=== PATIENT | female | born 1960 ===

== ENCOUNTER 2020-04-16 08:06 | Emergency (ER) | payer MEDICAID, OTHER ==
[~2020-04-16] VITALS: Ht 172 cm; Wt 57.0 kg
[2020-04-16 08:42] LABS: BASOPHILS % (AUTO) 0 % (0-10); EOSINOPHILS % (AUTO) 2 % (0-10); HEMATOCRIT 37 % (35-52); HEMOGLOBIN 12.1 G/DL (11.5-16.0); LYMPHOCYTES # (AUTO) 2.2 X 10^3 (1.0-4.0); LYMPHOCYTES % (AUTO) 18 % (12-44); MEAN CORPUSCULAR HEMOGLOBIN 30 PG (25-34); MEAN CORPUSCULAR HGB CONC 33 G/DL (32-36); MEAN CORPUSCULAR VOLUME 90 FL (80-99); MEAN PLATELET VOLUME 9.3 FL (7.4-10.4); MONOCYTES # (AUTO) 0.7 X 10^3 (0.0-1.0); MONOCYTES % (AUTO) 6 % (0-12); NEUTROPHILS # (AUTO) 8.9 X 10^3 (1.8-7.8); NEUTROPHILS % (AUTO) 74 % (42-75); PLATELET COUNT 551 10^3/uL (130-400); RED CELL DISTRIBUTION WIDTH 14.4 % (10.0-14.5)
[2020-04-16 08:43] LABS: EOSINOPHILS # (AUTO) 0.3 10^3/uL (0.0-0.3)
[2020-04-16] MEDS ORDERED: ONDANSETRON 4 MG/2 ML (SDV) Z0FRAN IVP ONE (08:45)
[2020-04-16] MEDS ORDERED: LIDOCAINE 2% VISCOUS 15 ML UDC PO ONE (08:45)
[2020-04-16] MEDS ORDERED: ANTACID SUSP 30 ML UDC (MYLANTA) PO ONE (08:45)
[2020-04-16] MEDS ORDERED: FAMOTIDINE 20MG/2ML IV (PEPCID) IVP ONE (08:45)
[2020-04-16 08:47] LABS: ALBUMIN 3.8 GM/DL (3.2-4.5)
[2020-04-16 08:48] LABS: CHLORIDE 95 MMOL/L (98-107); POTASSIUM 4.1 MMOL/L (3.6-5.0); SODIUM 131 MMOL/L (135-145)
[2020-04-16 08:49] LABS: CALCIUM 9.5 MG/DL (8.5-10.1)
[2020-04-16 08:50] LABS: GLUCOSE 102 MG/DL (70-105); TOTAL PROTEIN 7.2 GM/DL (6.4-8.2)
[2020-04-16 08:51] LABS: CARBON DIOXIDE 25 MMOL/L (21-32)
[2020-04-16 08:52] LABS: BILIRUBIN,TOTAL 0.3 MG/DL (0.1-1.0)
[2020-04-16 08:54] LABS: ALKALINE PHOSPHATASE 89 U/L (40-136); CREATININE SERUM 0.87 MG/DL (0.60-1.30); GFR ESTIMATED > 60
[2020-04-16 08:55] LABS: BUN/CREATININE RATIO 8
[2020-04-16 08:56] LABS: INR 0.8 (0.8-1.4)
--- NOTE | 2020-04-16 08:56 | ED Abdominal Pain ---
General Chief Complaint: Abdominal/GI Problems Stated Complaint: ABD PAIN Nursing Triage Note: PT AMBLATES TO ROOM 6 PT CO OF UPPER ABD PAIN, PT STATES HAS HAD PAIN 10/10 FOR 3 DAYS, STATES HAS N/V Sepsis Screen: No Definite Risk Source of Information: Patient Exam Limitations: No Limitations History of Present Illness Date Seen by Provider: Apr 16, 2020 Time Seen by Provider: 08:27 Initial Comments This 59-year-old woman presents to the emergency room with complaints of upper abdominal pain for about the past 3 days with associated nausea and vomiting. She reported her pain as 10 over 10. She denies any constipation, diarrhea, or fever. She has history of gastritis. Is about 2 months sober from alcohol dependence. She is currently living in a women's transitional house. Pain does not seem to be alleviated or exacerbated by eating. Allergies and Home Medications Allergies Coded Allergies: No Known Drug Allergies (Unverified , 04/16/20) Home Medications Omeprazole 20 Mg Capsule.dr, 20 MG PO BID Prescribed by: FLOR CALDERON on 04/16/20921 Sucralfate 1 Gm Tablet, 1 GM PO QID Crush or dissolve and mix with 5-10 ML water to make a slurry. Take 30 minutes before meals and bedtime Prescribed by: FLOR CALDERON on 04/16/20921 Patient Home Medication List Home Medication List Reviewed: Yes Review of Systems Review of Systems Constitutional: no symptoms reported EENTM: No Symptoms Reported Respiratory: No Symptoms Reported Cardiovascular: No Symptoms Reported Gastrointestinal: See HPI Genitourinary: No Symptoms Reported Musculoskeletal: no symptoms reported Skin: no symptoms reported Psychiatric/Neurological: See HPI Endocrine: No Symptoms Reported Hematologic/Lymphatic: No Symptoms Reported Past Pwedwan-Jqlreb-Ojoiaq Hx Past Med/Social Hx: Reviewed Nursing Past Med/Soc Hx Patient Social History Alcohol Use: Regular Use Number of Drinks Today: 0 Alcohol Beverage of Choice: Vodka Recreational Drug Use: No Smoking Status: Current Everyday Smoker Type Used: Cigarettes Recent Foreign Travel: No Contact w/Someone Who Travel: No Recent Infectious Disease Expo: No Physical Abuse: No Sexual Abuse: No Physical Exam Vital Signs Vital Signs - First Documented 04/16/20 08:10 Temp 36.6 Pulse 92 Resp 18 B/P (MAP) 148/96 (113) Pulse Ox 96 Capillary Refill : Less Than 3 Seconds Height/Weight/BMI Height: '" Weight: lbs. oz. 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, no motor/sensory deficits, alert, normal mood/affect, oriented x 3 Skin: normal color, warm/dry Progress/Results/Core Measures Results/Orders Lab Results Laboratory Tests Test 04/16/20 08:15 Range/Units White Blood Count 12.0 H 4.3-11.0 10^3/uL Red Blood Count 4.08 L 4.35-5.85 10^6/uL Hemoglobin 12.1 11.5-16.0 G/DL Hematocrit 37 35-52 % Mean Corpuscular Volume 90 80-99 FL Mean Corpuscular Hemoglobin 30 25-34 PG Mean Corpuscular Hemoglobin Concent 33 32-36 G/DL Red Cell Distribution Width 14.4 10.0-14.5 % Platelet Count 551 H 130-400 10^3/uL Mean Platelet Volume 9.3 7.4-10.4 FL Neutrophils (%) (Auto) 74 42-75 % Lymphocytes (%) (Auto) 18 12-44 % Monocytes (%) (Auto) 6 0-12 % Eosinophils (%) (Auto) 2 0-10 % Basophils (%) (Auto) 0 0-10 % Neutrophils # (Auto) 8.9 H 1.8-7.8 X 10^3 Lymphocytes # (Auto) 2.2 1.0-4.0 X 10^3 Monocytes # (Auto) 0.7 0.0-1.0 X 10^3 Eosinophils # (Auto) 0.3 0.0-0.3 10^3/uL Basophils # (Auto) 0.0 0.0-0.1 10^3/uL Prothrombin Time 12.0 L 12.2-14.7 SEC INR Comment 0.8 0.8-1.4 Sodium Level 131 L 135-145 MMOL/L Potassium Level 4.1 3.6-5.0 MMOL/L Chloride Level 95 L 98-107 MMOL/L Carbon Dioxide Level 25 21-32 MMOL/L Anion Gap 11 5-14 MMOL/L Blood Urea Nitrogen 7 7-18 MG/DL Creatinine 0.87 0.60-1.30 MG/DL Estimat Glomerular Filtration Rate > 60 BUN/Creatinine Ratio 8 Glucose Level 102 70-105 MG/DL Calcium Level 9.5 8.5-10.1 MG/DL Corrected Calcium 9.7 8.5-10.1 MG/DL Total Bilirubin 0.3 0.1-1.0 MG/DL Aspartate Amino Transf (AST/SGOT) 15 5-34 U/L Alanine Aminotransferase (ALT/SGPT) 7 0-55 U/L Alkaline Phosphatase 89 40-136 U/L Total Protein 7.2 6.4-8.2 GM/DL Albumin 3.8 3.2-4.5 GM/DL Lipase 50 8-78 U/L Serum Alcohol < 10 <10 MG/DL My Orders Orders - FLOR TRUJILLO MD Famotidine Injection (Pepcid Injection) (04/16/20 08:45) Lidocaine 2% Viscous 15 Ml (Xylocaine Vi (04/16/20 08:45) Antacid Suspension (Mylanta Suspension (04/16/20 08:45) Ondansetron Injection (Zofran Injectio (04/16/20 08:45) Alcohol (04/16/20 08:35) Cbc With Automated Diff (04/16/20 08:35) Comprehensive Metabolic Panel (04/16/20 08:35) Lipase (04/16/20 08:35) Protime With Inr (04/16/20 08:35) Ua Culture If Indicated (04/16/20 08:35) Medications Given in ED Current Medications Medications Dose Ordered Sig/Catherine Route Start Time Stop Time Status Last Admin Dose Admin Al Hydrox/Mg Hydrox/Simethicone 30 ml ONCE ONCE PO 04/16/20 08:45 04/16/20 08:46 DC 04/16/20 08:44 30 ML Famotidine 20 mg ONCE ONCE IVP 04/16/20 08:45 04/16/20 08:46 DC 04/16/20 08:44 20 MG Lidocaine HCl 15 ml ONCE ONCE PO 04/16/20 08:45 04/16/20 08:46 DC 04/16/20 08:44 15 ML Ondansetron HCl 8 mg ONCE ONCE IVP 04/16/20 08:45 04/16/20 08:46 DC 04/16/20 08:44 8 MG Vital Signs/I&O 04/16/20 04/16/20 08:10 09:30 Temp 36.6 Pulse 92 84 Resp 18 18 B/P (MAP) 148/96 (113) 132/84 (113) Pulse Ox 96 96 Blood Pressure Mean: 113 Progress Progress Note #1: Progress Note Patient was seen and examined. She had coffee with creamer about an hour prior to arrival. Ultrasound and therefore would not be ideally timed right now. We will try treating with Zofran, Pepcid, and GI cocktail while we are awaiting labs. Progress Note #2: Progress Note Patient did note a significant improvement with treatment. She was advised to start on a regimen of PPI and Carafate. She has a follow-up appointment at [facility] tomorrow and was encouraged to keep that appointment. Departure Impression Primary Impression: Epigastric pain Disposition: 01 HOME, SELF-CARE Condition: Improved Departure-Patient Inst. Decision time for Depature: 09:17 Referrals: NO,LOCAL PHYSICIAN (PCP) Primary Care Physician Patient Instructions: Gastritis (DC), Severe Abdominal Pain Add. Discharge Instructions: Your pain will likely rebound after the GI cocktail wears off. With proper tr eatment and dietary changes your pain should gradually improve over the next 1-2 weeks. Take omeprazole twice a daily for at least a couple of months. Use Carafate 30 minutes before eating and drinking at mealtimes and again before bed. Dissolve the tablet in 5-10 ML of water. You may crush first if you desire. This will make a slurry that you then drink. Avoid the following: Eating close to bedtime, eating large meals, caffeine, carbonation, citrus fruits and juices, chocolate, spicy foods, tomato products, mints, alcohol, tobacco, NSAID medications such as ibuprofen or naproxen, fatty or greasy foods, or anything else you know irritates your stomach. Keep your appointment with your primary care doctor. All discharge instructions reviewed with patient and/or family. Voiced understanding. Scripts Sucralfate (Carafate) 1 Gm Tablet 1 GM PO QID, #120 TAB Crush or dissolve and mix with 5-10 ML water to make a slurry. Take 30 minutes before meals and bedtime Prov: FLOR TRUJILLO MD 04/16/20 Omeprazole (Omeprazole) 20 Mg Capsule.dr 20 MG PO BID, #60 CAP 2 Refills Prov: FLOR TRUJILLO MD 04/16/20 Copy Copies To 1: MINISTERIO VIDES JOSHUA T MD Apr 16, 2020 08:56
[2020-04-16 08:57] LABS: ALANINE AMINOTRANSFERASE 7 U/L (0-55); LIPASE 50 U/L (8-78)
[2020-04-16] MEDS ORDERED: OMEP20CA18 PO (09:22)
[2020-04-16] MEDS ORDERED: SUCR1TAB36 PO (09:22)
[2020-04-16 09:30] VITALS: BP 132/84
--- OUTSIDE RECORDS SUMMARY | 2020-04-16 10:21 | XMS REPORT | Referral Summary ---
Author Author [facility] Organization [facility] Address Unknown Phone Unavailable Care Team Providers Care Print Designer Name Role Phone [facility] PCP Unavailable Encounter VC WILLIAM [id number] Date(s): 02/10/20 - 02/19/20 [facility] [address] [place] [address] Discharge Disposition: 01-Home or Self Care Attending Physician: Mark Kennedy MD Admitting Physician: Juan Reagan MD Vital Signs Most recent to 1 oldest [Reference Range]: Temperature Oral 37.4 degC [35.8-37.3 degC] *HI* (02/19/20 12:00 PM) Temperature Temporal 36.9 degC Artery [36.3-37.8 (02/13/20 12:00 PM) degC] Peripheral Pulse 93 bpm Rate [60-100 bpm] (02/19/20 12:00 PM) Heart Rate Monitored 85 bpm [60-100 bpm] (02/18/20 8:00 AM) Respiratory Rate 18 br/min [14-20 br/min] (02/19/20 12:00 PM) Blood Pressure 121/88 mmHg [90-140/60-90 mmHg] (02/19/20 12:00 PM) Mean Arterial 74 mmHg Pressure, Cuff (02/14/20 8:02 PM) SpO2 96 % (02/19/20 12:00 PM) Remote Telemetry Ongoing (02/14/20 7:57 AM) Problem List Condition Effective Dates Status Health Status Informan t Acute Active pain(Confirmed) Alteration in Active nutrition(Confirmed) 1 At risk for Active injury(Confirmed)2 At risk of pressure Active sore(Confirmed) Cirrhosis of Active liver(Confirmed) Hypertension(Confirm Active ed) Impaired gas Active exchange(Confirmed)3 Impaired skin Active integrity(Confirmed) 4 Scoliosis(Confirmed) Active patient 1Problem added automatically by system based on initiation of Alteration in Nutrition Plan of Care 2Problem added automatically by system based on initiation of Risk for Injury Plan of Care 3Problem added automatically by system based on initiation of Impaired Gas Exchange Plan of Care 4Problem added automatically by system based on initiation of Impaired Skin Integrity Plan of Care Allergies, Adverse Reactions, Alerts No Known Allergies Medications vancomycin 125 mg oral capsule 125 mg 1 caps, Oral, QID, # 32 caps, 0 Refill(s), Pharmacy: [facility], 1 caps Oral QID Start Date: 02/19/20 Status: Ordered Results Most recent to 1 oldest [Reference Range]: Lactic Acid-POC 5.0 mEq/L [0.5-2.0 mEq/L] *HHI* (02/10/20 8:16 PM) WBC [4.8-10.8 5.8 10*3/uL 10*3/uL] (02/19/20 6:42 AM) RBC [4.00-5.20] 2.92 *LOW* (02/19/20 6:42 AM) INR [0.9-1.2] 1.6 *HI* (02/13/20 11:00 AM) BUN [4-20 mg/dL] 2 mg/dL *LOW* (02/19/20 6:42 AM) Acetaminophen Lvl <10 ug/mL [10-30 ug/mL] (02/10/20 8:10 PM) U Amphetamine Scrn Not Detected [Not Detected] (02/11/20 12:45 AM) UA Color Yellow (02/14/20 1:36 PM) UA WBC [0-4] 0-2 (02/14/20 1:36 PM) Type Clean Catch (02/14/20 1:36 PM) Troponin [<0.06 <0.05 ng/mL ng/mL] (02/10/20 11:02 PM) Glucose Lvl [70-100 85 mg/dL mg/dL] (02/19/20 6:42 AM) Potassium Lvl 3.7 mEq/L [3.6-5.1 mEq/L] (02/19/20 6:42 AM) Baso Absolute 0.02 [0.00-0.20] (02/11/20 3:13 AM) U Benzodiazepine Not Detected Scrn [Not Detected] (02/11/20 12:45 AM) MCV [82.0-99.0 fL] 97.6 fL (02/19/20 6:42 AM) UA Urobilinogen Negative [<1.0] (02/14/20 1:36 PM) UA Bili [Negative] Negative (02/14/20 1:36 PM) UA Ketones Negative [Negative] (02/14/20 1:36 PM) AST [15-41 U/L] 37 U/L (02/11/20 3:13 AM) ALT [14-54 U/L] 20 U/L (02/11/20 3:13 AM) MCHC [32.0-36.0 32.3 gm/dL gm/dL] (02/19/20 6:42 AM) Sodium Lvl [136-144 138 mEq/L mEq/L] (02/19/20 6:42 AM) UA RBC [0-2] 2-5 (02/14/20 1:36 PM) Folate Lvl [7.0-31.4 12.2 ng/mL ng/mL] (02/14/20 5:27 AM) UA Leuk Est Pos 2+ [Negative] *ABN* (02/14/20 1:36 PM) U PCP Scrn [Not Not Detected Detected] (02/11/20 12:45 AM) Lymph Absolute 0.41 [0.80-3.30] *LOW* (02/11/20 3:13 AM) UA Nitrite Negative [Negative] (02/14/20 1:36 PM) UA Glucose Negative [Negative] (02/14/20 1:36 PM) Hct [37.0-47.0 %] 28.5 % *LOW* (02/19/20 6:42 AM) UA Bacteria [None Rare Seen-Rare] (02/14/20 1:36 PM) Lipase Lvl [8-48 22 U/L U/L] (02/10/20 8:10 PM) U Cocaine Scrn [Not Not Detected Detected] (02/11/20 12:45 AM) Calcium Lvl 7.5 mg/dL [8.6-10.0 mg/dL] *LOW* (02/19/20 6:42 AM) [place] Absolute 0.00 [0.30-1.00] *LOW* (02/11/20 3:13 AM) Phosphorus [2.4-4.7 4.2 mg/dL 1 mg/dL] (02/19/20 6:42 AM) Albumin Lvl [3.5-4.8 1.6 gm/dL gm/dL] *LOW* (02/19/20 6:42 AM) Total Protein 4.6 gm/dL [6.1-7.9 gm/dL] *LOW* (02/11/20 3:13 AM) UA Protein Negative [Negative] (02/14/20 1:36 PM) Iron Sat [11-46 %] 9 % *LOW* (02/14/20 5:27 AM) MCH [27.0-32.0 pg] 31.5 pg (02/19/20 6:42 AM) Magnesium Lvl 1.8 mg/dL [1.8-2.5 mg/dL] (02/16/20 4:51 AM) Neutro Absolute 13.39 [1.90-7.00] *HI* (02/11/20 3:13 AM) U Cannab Scrn [Not Not Detected Detected] (02/11/20 12:45 AM) Bili Total [0.2-1.2 0.8 mg/dL 2 mg/dL] (02/11/20 3:13 AM) Hgb [12.0-16.0 9.2 gm/dL gm/dL] *LOW* (02/19/20 6:42 AM) Transferrin [192-382 80 mg/dL mg/dL] *LOW* (02/14/20 5:27 AM) Vitamin B12 Lvl 1002 pg/mL [213-816 pg/mL] *HI* (02/14/20 5:27 AM) Alk Phos [26-104 179 U/L U/L] *HI* (02/11/20 3:13 AM) UA Blood [Negative] Pos 1+ *ABN* (02/14/20 1:36 PM) MPV [9.4-12.4 fL] 9.1 fL *LOW* (02/19/20 6:42 AM) Salicylate Lvl [0-30 <4 mg/dL 3 mg/dL] (02/10/20 8:10 PM) Ethanol Lvl [None 323 mg/dL Detected mg/dL] (02/10/20 8:10 PM) UA Spec Grav 1.005 [1.003-1.030] (02/14/20 1:36 PM) Ferritin Lvl [11-307 248 ng/mL ng/mL] (02/14/20 5:27 AM) Polychrom [Not Seen] Occasional *ABN* (02/11/20 3:13 AM) Platelet [150-400 626 10*3/uL 10*3/uL] *HI* (02/19/20 6:42 AM) Chloride [99-109 102 mEq/L mEq/L] (02/19/20 6:42 AM) CO2 [22-32 mEq/L] 25 mEq/L (02/19/20 6:42 AM) AGAP [3-20 mEq/L] 11 mEq/L (02/19/20 6:42 AM) Eos Absolute 0.04 [0.00-0.50] (02/11/20 3:13 AM) TIBC [286-569 119 mcg/dL mcg/dL] *LOW* (02/14/20 5:27 AM) U Barbiturate Scrn Not Detected [Not Detected] (02/11/20 12:45 AM) Lactic Acid Lvl 4.4 mEq/L 4 [0.5-2.0 mEq/L] *HHI* (02/11/20 4:00 PM) Iron [50-170 mcg/dL] 11 mcg/dL *LOW* (02/14/20 5:27 AM) RDW [11.5-14.5 %] 24.9 % *HI* (02/19/20 6:42 AM) UA pH [5.0-8.0] 7.0 (02/14/20 1:36 PM) U Opiate Scrn [Not Not Detected Detected] (02/11/20 12:45 AM) UA Appear Sl Cloudy (02/14/20 1:36 PM) Immature 0.1 % Granulocytes (02/10/20 8:10 PM) [0.0-1.0 %] Nucleated RBC 0.6 /100 WBC Automated [0 /100 (02/11/20 3:13 AM) WBC] Differential Reviewed (02/11/20 3:13 AM) eGFR [>60 mL/min] >60 mL/min 5 (02/19/20 6:42 AM) Globulin [1.9-4.3 2.9 gm/dL gm/dL] (02/11/20 3:13 AM) Epithelial Cells 2-5 [0-5] (02/14/20 1:36 PM) Tricyclics [Not Not Detected 6 Detected] (02/11/20 12:45 AM) TSH with Reflex Free 4.52 mcIU/mL T4 [0.35-5.50 (02/15/20 5:00 AM) mcIU/mL] Creatinine Lvl 0.78 mg/dL [0.44-1.03 mg/dL] (02/19/20 6:42 AM) Neutrophils [51-75 97 % %] *HI* (02/11/20 3:13 AM) Lymphocytes [20-46 3 % %] *LOW* (02/11/20 3:13 AM) Eosinophils [0-4 %] 0 % (02/11/20 3:13 AM) Basophils [0-2 %] 0 % (02/11/20 3:13 AM) Methadone Lvl [Not Not Detected Detected] (02/11/20 12:45 AM) Monocytes [4-11 %] 4 % (02/11/20 3:13 AM) Blood Glucose, 99 mg/dL Capillary [70-100 (02/13/20 8:56 PM) mg/dL] 1Result Comment: High dosages of liposomal Amphotericin B (AmBisome) therapy or other drug preparations that use a liposomal envelope to facilitate drug delivery may cause falsely elevated results for phosphorus. 2Result Comment: Naproxen, specifically the metabolite O-desmethylnaproxen, may cause spurious elevation in Total Bilirubin levels. B-oqhalk-x-benzoquinone imine (NAPQ1), a metabolite of acetaminophen, may cause negative interference in Total and/or Direct Bilirubin if present in high serum quantities due to acetaminophen overdose. 3Result Comment: Sulfasalazine may cause false high salicylate levels and Sulfapyridine may cause false low salicylate levels. 4Result Comment: Critical value called, and read-back verified. Called to Marco Key ([facility]) 02/11/2020 16:46 Venipuncture immediately after or during the administration of Metamizole (Dipyrone) may lead to falsely low results. Venipuncture should be performed prior to the administration of Metamizole. 5Result Comment: Multiply eGFR results by 1.21 for race. 6Result Comment: Cut-off concentrations: Amphetamines: 1000 ng/mL Cocaine: 300 ng/mL Cannabinoid: 50 ng/mL Opiate: 300 ng/mL Phencyclidine (PCP): 25 ng/mL Benzodiazepine: 200 ng/mL Barbiturate: 200 ng/mL Methadone: 300 ng/mL Tricyclic: 300 ng/mL The urine drug screen assays are qualitative screens. A more specific GC/MS method must be performed to obtain a confirmed analytical result. Unconfirmed screening results must not be used for non-medical purposes(e.g. employment or legal testing) Microbiology Reports TEST: Blood Culture1 STATUS: Auth (Verified) BODY SITE: SOURCE: Blood COLLECTED DATE/TIME: 02/10/20 9:09 PM Blood Culture No growth after 5 days of incubation. TEST: Blood Culture2 STATUS: Auth (Verified) BODY SITE: SOURCE: Blood COLLECTED DATE/TIME: 02/10/20 9:09 PM Blood Culture No growth after 5 days of incubation. INTERPRETIVE DATA 1Volume not known;Pediatric bottle ONLY received 2Volume of blood not known Immunizations No data available for this section Procedures Procedure Date Related Diagnosis Body Site Status Insertion of peripherally inserted central 02/11/20 Completed venous catheter (PICC), without subcuta neous port or pump, without imaging guidance; age 5 years or older Esophagogastroduodenoscopy - SN1 03/15/19 Compl eted Esophagogastroduodenoscopy - SN2 03/07/19 Compl eted 1auto-populated from documented surgical case 2auto-populated from documented surgical case Social History Social History Type Response Smoking Status 10 or more cigarettes (1/2 pack or more)/day in last 30 days; Type: Cigarettes; Tobacco use per day: 1/2 pa ck or more entered on: 10/04/19 Assessment and Plan No data available for this section
--- OUTSIDE RECORDS SUMMARY | 2020-04-16 10:21 | XMS REPORT | Referral Summary ---
Author Author [place] [facility] [employer] [facility] Organization [place] [facility] Address Unknown Phone Unavailable Care Team Providers Care Site Leasing Agent Name Role Phone [facility] PCP Unavailable Encounter VC Date(s): 02/23/20 - 02/29/20 [place] [facility] [employer] [place] [address], [place] [address] Encounter Diagnosis Hypertension (Discharge Diagnosis) - 02/28/20 Discharge Disposition: 01-Home or Self Care Attending Physician: Tcio Ponce MD Admitting Physician: Ayesha Alvarado MD Vital Signs Most recent to 1 oldest [Reference Range]: Temperature Axillary 36.7 degC [35.2-36.7 degC] (02/28/20 7:09 AM) Temperature Oral 36.8 degC [35.8-37.3 degC] (02/29/20 3:41 PM) Temperature Temporal 36.8 degC Artery [36.3-37.8 (02/24/20 12:00 PM) degC] Apical Heart Rate 106 bpm [60-100 bpm] *HI* (02/24/20 4:04 AM) Peripheral Pulse 91 bpm Rate [60-100 bpm] (02/29/20 3:41 PM) Heart Rate Monitored 116 bpm [60-100 bpm] *HI* (02/29/20 9:14 AM) Respiratory Rate 18 br/min [14-20 br/min] (02/29/20 3:41 PM) Blood Pressure 119/76 mmHg [90-140/60-90 mmHg] (02/29/20 3:41 PM) Mean Arterial 89 mmHg Pressure, Cuff (02/29/20 2:23 AM) SpO2 97 % (02/29/20 3:41 PM) Problem List Condition Effective Dates Status Health Status Informan t Alcohol Active intoxication(Confirm ed) Acute Active pain(Confirmed) Alteration in Active nutrition(Confirmed) 1 At risk for Active injury(Confirmed)2 At risk of pressure Active sore(Confirmed) Cirrhosis of Active liver(Confirmed) Hypertension(Confirm Active ed) Impaired gas Active exchange(Confirmed)3 Impaired skin Active integrity(Confirmed) 4 Chronic alcohol Active abuse(Confirmed) Scoliosis(Confirmed) Active patient Malnourished(Confirm Active ed) 1Problem added automatically by system based on [...] Adverse Reactions, Alerts No Known Allergies Medications potassium chloride 20 mEq oral tablet, extended release 20 mEq 1 tabs, Oral, BID, # 20 tabs, 0 Refill(s) Start Date: 02/29/20 Status: Ordered vancomycin 125 mg oral capsule 125 mg 1 caps, Oral, q6hr, 0 Refill(s) Start Date: 02/28/20 Status: Ordered vancomycin 125 mg oral capsule 125 mg 1 caps, Oral, q6hr, # 18 caps, 0 Refill(s) Start Date: 02/29/20 Stop Date: 03/04/20 Status: Ordered Results Most recent to 1 oldest [Reference Range]: WBC [4.8-10.8 10.0 10*3/uL 10*3/uL] (02/29/20 5:09 AM) RBC [4.00-5.20] 3.07 *LOW* (02/29/20 5:09 AM) BUN [4-20 mg/dL] 1 mg/dL *LOW* (02/29/20 5:10 AM) Acetaminophen Lvl <10 ug/mL [10-30 ug/mL] (02/23/20 8:00 PM) UA Color Yellow (02/23/20 10:50 PM) Type Not Specified (02/23/20 10:50 PM) Troponin [<0.06 <0.05 ng/mL ng/mL] (02/23/20 8:00 PM) Glucose Lvl [70-100 93 mg/dL mg/dL] (02/29/20 5:10 AM) Potassium Lvl 3.1 mEq/L [3.6-5.1 mEq/L] *LOW* (02/29/20 5:10 AM) Baso Absolute 0.03 [0.00-0.20] (02/26/20 5:03 AM) MCV [82.0-99.0 fL] 99.3 fL *HI* (02/29/20 5:09 AM) UA Urobilinogen Negative [<1.0] (02/23/20 10:50 PM) UA Bili [Negative] Negative (02/23/20 10:50 PM) UA Ketones Negative [Negative] (02/23/20 10:50 PM) HCO3 Jv [24-28 20 mEq/L mEq/L] *LOW* (02/23/20 9:12 PM) AST [15-41 U/L] 29 U/L (02/28/20 4:36 AM) ALT [14-54 U/L] 20 U/L (02/28/20 4:36 AM) MCHC [32.0-36.0 32.1 gm/dL gm/dL] (02/29/20 5:09 AM) Sodium Lvl [136-144 132 mEq/L mEq/L] *LOW* (02/29/20 5:10 AM) UA Leuk Est Negative [Negative] (02/23/20 10:50 PM) Lymph Absolute 1.48 [0.80-3.30] (02/26/20 5:03 AM) UA Nitrite Negative [Negative] (02/23/20 10:50 PM) UA Glucose Negative [Negative] (02/23/20 10:50 PM) Hct [37.0-47.0 %] 30.5 % *LOW* (02/29/20 5:09 AM) Lipase Lvl [8-48 17 U/L U/L] (02/23/20 8:00 PM) Calcium Lvl 7.1 mg/dL [8.6-10.0 mg/dL] *LOW* (02/29/20 5:10 AM) [place] Absolute 0.28 [0.30-1.00] *LOW* (02/26/20 5:03 AM) Phosphorus [2.4-4.7 3.5 mg/dL 1 mg/dL] (02/29/20 5:10 AM) Albumin Lvl [3.5-4.8 1.3 gm/dL gm/dL] *LOW* (02/29/20 5:10 AM) Total Protein 4.4 gm/dL [6.1-7.9 gm/dL] *LOW* (02/28/20 4:36 AM) UA Protein Negative [Negative] (02/23/20 10:50 PM) MCH [27.0-32.0 pg] 31.9 pg (02/29/20 5:09 AM) Magnesium Lvl 1.8 mg/dL [1.8-2.5 mg/dL] (02/29/20 5:10 AM) Neutro Absolute 7.72 [1.90-7.00] *HI* (02/26/20 5:03 AM) Bili Total [0.2-1.2 0.5 mg/dL 2 mg/dL] (02/28/20 4:36 AM) Hgb [12.0-16.0 9.8 gm/dL gm/dL] *LOW* (02/29/20 5:09 AM) Alk Phos [26-104 145 U/L U/L] *HI* (02/28/20 4:36 AM) UA Blood [Negative] Negative (02/23/20 10:50 PM) MPV [9.4-12.4 fL] 9.7 fL (02/29/20 5:09 AM) Salicylate Lvl [0-30 <4 mg/dL 3 mg/dL] (02/23/20 8:00 PM) Ethanol Lvl [None 389 mg/dL Detected mg/dL] (02/23/20 8:00 PM) UA Spec Grav 1.010 [1.003-1.030] (02/23/20 10:50 PM) Polychrom [Not Seen] Occasional *ABN* (02/26/20 5:03 AM) Platelet [150-400 447 10*3/uL 10*3/uL] *HI* (02/29/20 5:09 AM) Chloride [99-109 101 mEq/L mEq/L] (02/29/20 5:10 AM) CO2 [22-32 mEq/L] 23 mEq/L (02/29/20 5:10 AM) AGAP [3-20 mEq/L] 8 mEq/L (02/29/20 5:10 AM) Eos Absolute 0.48 [0.00-0.50] (02/26/20 5:03 AM) Lactic Acid Lvl 1.2 mEq/L 4 [0.5-2.0 mEq/L] (02/26/20 6:40 AM) RDW [11.5-14.5 %] 22.0 % *HI* (02/29/20 5:09 AM) Macrocyte [Not Present Present] *ABN* (02/26/20 5:03 AM) UA pH [5.0-8.0] 7.0 (02/23/20 10:50 PM) O2 Sat Jv 54.9 % (02/23/20 9:12 PM) Base Excess Jv -4 [0-4] *LOW* (02/23/20 9:12 PM) UA Appear Clear (02/23/20 10:50 PM) Immature 0.3 % Granulocytes (02/26/20: AM) [0.0-1.0 %] Nucleated RBC 0.0 /100 WBC Automated [0 /100 (02/26/20 5:03 AM) WBC] Differential Scanned Slide (02/26/20 5:03 AM) eGFR [>60 mL/min] >60 mL/min 5 (02/29/20 5:10 AM) Globulin [1.9-4.3 2.9 gm/dL gm/dL] (02/28/20 4:36 AM) Creatinine Lvl 0.71 mg/dL [0.44-1.03 mg/dL] (02/29/20 5:10 AM) O2 Panel Jv Room Air (02/23/20 9:12 PM) Spec Site Jv Peripheral IV (02/23/20 9:12 PM) Neutrophils [51-75 77 % %] *HI* (02/26/20 5:03 AM) Lymphocytes [20-46 15 % %] *LOW* (02/26/20 5:03 AM) Eosinophils [0-4 %] 5 % *HI* (02/26/20 5:03 AM) Basophils [0-2 %] 0 % (02/26/20 5:03 AM) PTH (Parathyroid 63.0 pg/mL Hormone) [12.0-88.0 (02/26/20 5:03 AM) pg/mL] Venous pH 7.41 [7.30-7.40] *HI* (02/23/20 9:12 PM) Venous PCO2 [45-55 32 mmHg mmHg] *LLOW* (02/23/20 9:12 PM) Venous PO2 [15-35 28 mmHg mmHg] (02/23/20 9:12 PM) Monocytes [4-11 %] 3 % *LOW* (02/26/20 5:03 AM) 1Result Comment: High dosages of liposomal Amphotericin B (AmBisome) therapy or other drug preparations that use a liposomal envelope to facilitate drug delivery may cause falsely elevated results for phosphorus. 2Result Comment: Naproxen, specifically the metabolite O-desmethylnaproxen, may cause spurious elevation in Total Bilirubin levels. K-bvmrfg-p-benzoquinone imine (NAPQ1), a metabolite of acetaminophen, may cause negative interference in Total and/or Direct Bilirubin if present in high serum quantities due to acetaminophen overdose. 3Result Comment: Sulfasalazine may cause false high salicylate levels and Sulfapyridine may cause false low salicylate levels. 4Result Comment: Venipuncture immediately after or during the administration of Metamizole (Dipyrone) may lead to falsely low results. Venipuncture should be performed prior to the administration of Metamizole. 5Result Comment: Multiply eGFR results by 1.21 for race. Microbiology Reports TEST: Blood Culture1 STATUS: Auth (Verified) BODY SITE: SOURCE: Blood COLLECTED DATE/TIME: 02/24/20 6:06 AM Blood Culture No growth after 5 days of incubation. TEST: Blood Culture2 STATUS: Auth (Verified) BODY SITE: SOURCE: Blood COLLECTED DATE/TIME: 02/24/20 5:52 AM Blood Culture No growth after 5 days of incubation. INTERPRETIVE DATA 1Volume of blood: 10 mls 2Volume of blood: 5 mls Immunizations No data available for this section Procedures Procedure Date Related Diagnosis Body Site Status Esophagogastroduodenoscopy - SN1 03/15/19 Compl eted Esophagogastroduodenoscopy [...]
--- OUTSIDE RECORDS SUMMARY | 2020-04-16 10:22 | XMS REPORT | Referral Summary ---
Author Author [place] [facility] [employer] [facility] Organization [facility] Address Unknown Phone Unavailable Care Team Providers Care Biomedical Manager Name Role Phone [facility] PCP Unavailable Encounter VC Date(s): 01/09/20 - 01/10/20 [facility] [address] [place], [place] [address] Encounter Diagnosis Hypertension (Discharge Diagnosis) - 01/10/20 Discharge Disposition: 01-Home or Self Care Attending Physician: Sia Sanders MD Admitting Physician: Tico Ponce MD Vital Signs Most recent to 1 oldest [Reference Range]: Temperature Oral 37 degC [35.8-37.3 degC] (01/10/20 11:00 AM) Peripheral Pulse 98 bpm Rate [60-100 bpm] (01/10/20 11:00 AM) Heart Rate Monitored 98 bpm [60-100 bpm] (01/10/20 6:58 AM) Respiratory Rate 18 br/min [14-20 br/min] (01/10/20 11:00 AM) Blood Pressure 128/74 mmHg [90-140/60-90 mmHg] (01/10/20 11:00 AM) Mean Arterial 125 mmHg Pressure, Cuff (01/09/20 12:58 PM) SpO2 99 % (01/10/20 11:00 AM) Remote Telemetry Ongoing (01/10/20 6:58 AM) Problem List Condition Effective Dates Status [...] Adverse Reactions, Alerts No Known Allergies Medications amLODIPine 5 mg oral tablet 5 mg 1 tabs, Oral, Daily, 0 Refill(s) Start Date: 01/10/20 Status: Ordered Multiple Vitamins with Minerals oral tablet Oral, Daily, 0 Refill(s) Start Date: 01/10/20 Status: Ordered Results Most recent to 1 oldest [Reference Range]: WBC [4.8-10.8 7.7 10*3/uL 10*3/uL] (01/09/20 8:22 AM) RBC [4.00-5.20] 4.73 (01/09/20 8:22 AM) INR [0.9-1.2] 1.0 (01/09/20 8:22 AM) BUN [4-20 mg/dL] 7 mg/dL (01/10/20 3:33 AM) Troponin [<0.06 <0.05 ng/mL ng/mL] (01/09/20 8:22 AM) Glucose Lvl [70-100 104 mg/dL mg/dL] *HI* (01/10/20 3:33 AM) Potassium Lvl 3.2 mEq/L [3.6-5.1 mEq/L] *LOW* (01/10/20 3:33 AM) MCV [82.0-99.0 fL] 92.2 fL (01/09/20 8:22 AM) AST [15-41 U/L] 32 U/L (01/09/20 8:22 AM) ALT [14-54 U/L] 17 U/L (01/09/20 8:22 AM) MCHC [32.0-36.0 33.0 gm/dL gm/dL] (01/09/20 8:22 AM) Sodium Lvl [136-144 137 mEq/L mEq/L] (01/10/20 3:33 AM) Hct [37.0-47.0 %] 43.6 % (01/09/20 8:22 AM) Lipase Lvl [8-48 29 U/L U/L] (01/09/20 8:22 AM) Calcium Lvl 8.6 mg/dL [8.6-10.0 mg/dL] (01/10/20:33 AM) Albumin Lvl [3.5-4.8 3.4 gm/dL gm/dL] *LOW* (01/09/20 8: AM) Total Protein 7.7 gm/dL [6.1-7.9 gm/dL] (01/09/20 8: AM) MCH [27.0-32.0 pg] 30.4 pg (01/09/20 8: AM) Magnesium Lvl 1.8 mg/dL [1.8-2.5 mg/dL] (01/09/20 AM) Bili Total [0.2-1.2 0.9 mg/dL 1 mg/dL] (01/09/20 8: AM) Hgb [12.0-16.0 14.4 gm/dL gm/dL] (01/09/20: AM) Alk Phos [26-104 177 U/L U/L] *HI* (01/09/20 8: AM) MPV [9.4-12.4 fL] 9.1 fL *LOW* (01/09/20: AM) Ethanol Lvl [None 114 mg/dL Detected mg/dL] (01/09/20 8: AM) Platelet [150-400 432 10*3/uL 10*3/uL] *HI* (01/09/20 AM) Chloride [99-109 97 mEq/L mEq/L] *LOW* (01/10/20: AM) CO2 [22-32 mEq/L] 27 mEq/L (01/10/20:33 AM) AGAP [3-20 mEq/L] 13 mEq/L (01/10/20 AM) RDW [11.5-14.5 %] 16.8 % *HI* (01/09/20 8:22 AM) eGFR [>60 mL/min] 56 mL/min 2 *ABN* (01/10/20: AM) Globulin [1.9-4.3 4.3 gm/dL gm/dL] (01/09/20 8:22 AM) Creatinine Lvl 1.01 mg/dL [0.44-1.03 mg/dL] (01/10/20 3:33 AM) Blood Glucose, 93 mg/dL Capillary [70-100 (01/09/20 4:43 PM) mg/dL] 1Result Comment: Naproxen, specifically the metabolite O-desmethylnaproxen, may cause spurious elevation in Total Bilirubin levels. X-xvtrgu-r-benzoquinone imine (NAPQ1), a metabolite of acetaminophen, may cause negative interference in Total and/or Direct Bilirubin if present in high serum quantities due to acetaminophen overdose. 2Result Comment: Multiply eGFR results by 1.21 for race. Immunizations No data available for this section [...]
--- OUTSIDE RECORDS SUMMARY | 2020-04-16 10:22 | XMS REPORT | Referral Summary ---
Author Author [place] [facility] Organization [place] [facility] Address Unknown Phone Unavailable Care Team Providers Care Digital Computer Operator Name Role Phone [facility] PCP Unavailable Encounter VC Date(s): 11/16/19 - 11/16/19 [place] [facility] [address] [place] [address] [phone] Encounter Diagnosis Muscle strain of left hip (Discharge Diagnosis) - 11/16/19 Discharge Disposition: 01-Home or Self Care Attending Physician: Carlos A Ritchie MD Admitting Physician: Carlos A Ritchie MD Vital Signs Most recent to 1 oldest [Reference Range]: Temperature Oral 37.0 degC [35.8-37.3 degC] (11/16/19 12:05 PM) Peripheral Pulse 74 bpm Rate [60-100 bpm] (11/16/19 12:05 PM) Respiratory Rate 16 br/min [14-20 br/min] (11/16/19 12:05 PM) Blood Pressure 99/64 mmHg [90-140/60-90 mmHg] (11/16/19 12:05 PM) SpO2 97 % (11/16/19 12:05 PM) Problem List Condition Effective Dates Status Health Status Informan t Acute Active pain(Confirmed) Alteration in Active nutrition(Confirmed) 1 At risk for Active injury(Confirmed)2 At risk of pressure Active sore(Confirmed) Impaired gas Active exchange(Confirmed)3 Impaired skin Active [...] Adverse Reactions, Alerts No Known Allergies Medications hydrOXYzine hydrochloride 25 mg oral tablet 25 mg 1 tabs, Oral, q6hr, Pruritus/Itching, 0 Refill(s) Start Date: 03/24/19 Status: Ordered ibuprofen 800 mg oral tablet 800 mg 1 tabs, Oral, q8hr, as needed for pain, Take one tablet every 8 hours wit h food or milk, X 7 days, # 21 tabs, 0 Refill(s), Pharmacy: [id number], 1 tabs Oral q8hr,x7 days,PRN:as needed for pain,Instr:Take one tablet ever y 8 hours w... Start Date: 11/16/19 Stop Date: 11/23/19 Status: Ordered miconazole 2% topical powder 1 macario, Topical, BID, Rash, 0 Refill(s) Start Date: 03/24/19 Status: Ordered nicotine 14 mg/24 hr transdermal film, extended release 1 patches, TransDermal, Daily, 0 Refill(s) Start Date: 03/24/19 Status: Ordered oxyCODONE 5 mg oral tablet 5 mg 1 tabs, Oral, q24hr, Pain Severe (7-10), 0 Refill(s) Start Date: 03/24/19 Status: Ordered pantoprazole 40 mg oral delayed release tablet 40 mg 1 tabs, Oral, BID, 0 Refill(s) Start Date: 03/24/19 Status: Ordered Remeron 15 mg oral tablet 15 mg 1 tabs, Oral, Bedtime (once a day), 0 Refill(s) Start Date: 03/24/19 Status: Ordered Tylenol 325 mg oral capsule 650 mg 2 caps, Oral, q4hr, as needed for pain, # 20 caps, 0 Refill(s) Start Date: 03/04/19 Status: Ordered Results No data available for this section Immunizations No data available for this section [...]
--- OUTSIDE RECORDS SUMMARY | 2020-04-16 10:22 | XMS REPORT ---
Author Author David Stack [facility] Address [address] [place] [address] Care Team Providers Care Steel Detailer Name Role Phone Gisell Stack Unavailable PROBLEMS Unknown Problems ALLERGIES No Information ENCOUNTERS Encounter Location Date Diagnosis [facility] [address] [place] [phone] Feb, Contact with and (suspected) exposure to other viral communicable diseases Z20.828 [facility] [address] [place] [phone] Feb, Contact with and (suspected) exposure to other viral communicable diseases Z20.828 IMMUNIZATIONS No Known Immunizations SOCIAL HISTORY Never Assessed REASON FOR VISIT [facility] COVID PLAN OF CARE Activity Details Pending Test SARS CoV 2 RNA(COVID 19), QU ALITATIVE NAAT VITAL SIGNS MEDICATIONS Unknown Medications RESULTS No Results PROCEDURES No Known procedures INSTRUCTIONS MEDICATIONS ADMINISTERED No Known Medications
--- OUTSIDE RECORDS SUMMARY | 2020-04-16 10:22 | XMS REPORT ---
Author Author BEVERLY [facility] Address [address] [id number] Care Team Providers Care Spinner Cap Frame Name Role Phone Paolostephendar Narinder Unavailable PROBLEMS Unknown Problems ALLERGIES No Information ENCOUNTERS Encounter Location Date Diagnosis [facility] [address] [place] [id number] Feb, [facility] [address] [place], [place] [phone] Jan, [facility] [address] [id number] Nov, [facility] [address] [facility] [address] [place], [place] [phone] 2 Mar, IMMUNIZATIONS No Known Immunizations SOCIAL HISTORY Never Assessed REASON FOR VISIT [facility] (add on) PLAN OF CARE VITAL SIGNS MEDICATIONS Unknown Medications RESULTS No Results PROCEDURES No Known procedures INSTRUCTIONS MEDICATIONS ADMINISTERED No Known Medications
--- OUTSIDE RECORDS SUMMARY | 2020-04-16 10:22 | XMS REPORT ---
Author Author Sriram Stack [facility] Address [address] [place] [address] Care Team Providers Care Dowel Setting Machine Operator Name Role Phone Sreekanth Gisell Unavailable PROBLEMS Type Condition ICD9-CM Code [id number] Code Onset Dates Condition S tatus SNOMED Code Problem History of alcohol abuse F10.11 Activ e 299643269 Problem Hypomagnesemia E83.42 Active 39060 5004 Problem Chronic malnutrition E46 Active Problem Diastolic dysfunction without heart failure I51.89 Active 6065408 ALLERGIES No Information ENCOUNTERS Encounter Location Date Diagnosis [address] [phone] Mar[facility] [address] [phone] Feb, History of substance abuse F19.11 ; History of alcohol abuse F10.11 ; Routine screening for STI (sexually transmitted infection) Z11.3 ; Pericardial effusion I31.3 ; Chronic malnutrition E46 ; Hypomagnesemia E83.42 ; Hypokalemia E87.6 ; Pain in right leg M79.604 and Pain in left leg M79.[address] [id number] Feb, Contact with and (suspected) exposure to other viral communicable diseases Z20.[address] [phone] Feb, Contact with and (suspected) exposure to other viral communicable diseases Z20.828 IMMUNIZATIONS No Known Immunizations SOCIAL HISTORY Never Assessed REASON FOR VISIT [facility] lab PLAN OF CARE VITAL SIGNS MEDICATIONS Unknown Medications RESULTS No Results PROCEDURES No Known procedures INSTRUCTIONS MEDICATIONS ADMINISTERED No Known Medications MEDICAL (GENERAL) HISTORY Type Description Date Medical History stomach issues Hospitalization History 03/06/2020 to 03/13/2020 for alcohol (N o KAMALJIT) 02/2020
--- OUTSIDE RECORDS SUMMARY | 2020-04-16 10:22 | XMS REPORT | Referral Summary ---
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 Upper GI bleed (Discharge Diagnosis) - 03/24/19 Community acquired pneumonia (Discharge Diagnosis) - 03/04/19 Weakness (Discharge Diagnosis) - 03/04/19 Diarrhea (Discharge Diagnosis) - 03/04/19 Hypokalemia (Discharge Diagnosis) - 03/04/19 Anemia (Discharge Diagnosis) - 03/04/19 Hypotension (Discharge Diagnosis) - 03/04/19 Discharge Disposition: -Sn[facility] Facility Attending Physician: Sia Sanders MD Admitting Physician: Dee Feng DO Referring Physician: Self Referred, X Vital Signs Most recent to 1 oldest [Reference Range]: Temperature Oral 36.7 degC [35.8-37.3 degC] (03/24/19 3:00 PM) Temperature Tympanic 37.4 degC [35.8-38.1 degC] (03/14/19 8:00 AM) Temperature Temporal 36.4 degC Artery [36.3-37.8 (03/17/19 8:00 AM) degC] Peripheral Pulse 92 bpm Rate [60-100 bpm] (03/23/19 2:56 AM) Heart Rate Monitored 90 bpm [60-100 bpm] (03/24/19 3:54 PM) Respiratory Rate 16 br/min [14-20 br/min] (03/24/19 3:54 PM) Blood Pressure 99/69 mmHg [90-140/60-90 mmHg] (03/24/19 3:00 PM) Systolic Blood 97 mmHg Pressure with (03/13/19 1:41 PM) Activity Diastolic Blood 70 mmHg Pressure with (03/13/19 1:41 PM) Activity Mean Arterial 86 mmHg Pressure, Cuff (03/17/19 2:00 PM) Pulse Rate [60-100 88 bpm bpm] (03/20/19 9:01 PM) SpO2 97 % (03/24/19 3:54 PM) Remote Telemetry Ongoing (03/23/19 6:47 PM) Problem List Condition Effective Dates Status Health Status Informan t Acute Active pain(Confirmed) Alteration in Active nutrition(Confirmed) 1 At risk for Active injury(Confirmed)2 At risk of pressure Active sore(Confirmed) Impaired gas Active exchange(Confirmed)3 Impaired skin Active integrity(Confirmed) 4 1Problem added automatically by system based on [...] 0 Refill(s) Start Date: 03/24/19 Status: Ordered miconazole 2% topical powder 1 [...] Refill(s) Start Date: 03/04/19 Status: Ordered Results Most recent to 1 oldest [Reference Range]: O2 Sat Art 93.6 % [90.0-97.0 %] (03/15/19 9:00 AM) pCO2 Art [35-45 50 mmHg mmHg] *HI* (03/15/19 9:00 AM) pO2 Art [80-100 58 mmHg mmHg] *LOW* (03/15/19 9:00 AM) Lactic Acid-POC 1.6 mEq/L [0.5-2.0 mEq/L] (03/04/19 10:41 AM) WBC [4.8-10.8 10.3 10*3/uL 10*3/uL] (03/24/19 4:50 AM) RBC [4.00-5.20] 2.31 *LOW* (03/24/19 4:50 AM) INR [0.9-1.2] 1.1 (03/15/19 11:26 PM) BUN [4-20 mg/dL] 9 mg/dL (03/24/19 4:50 AM) UA Color Yellow (03/07/19 5:27 PM) UA WBC [0-4] 2-5 (03/07/19 5:27 PM) ABO/Rh A NEG (03/15/19 5:24 AM) Type Clean Catch (03/07/19 5:27 PM) Troponin [<0.06 <0.05 ng/mL ng/mL] (03/14/19 1:13 PM) Glucose Lvl [70-100 91 mg/dL mg/dL] (03/24/19 4:50 AM) Potassium Lvl 3.9 mEq/L [3.6-5.1 mEq/L] (03/24/19 4:50 AM) Baso Absolute 0.03 [0.00-0.20] (03/07/19 1:57 AM) MCV [82.0-99.0 fL] 101.3 fL *HI* (03/24/19 4:50 AM) UA Urobilinogen Negative [<1.0] (03/07/19 5:27 PM) UA Hyal Cast [0-3 >12 [LPF] [LPF]] *ABN* (03/07/19 5:27 PM) UA Bili [Negative] Negative (03/07/19 5:27 PM) UA Ketones Negative [Negative] (03/07/19 5:27 PM) AST [15-41 U/L] 42 U/L *HI* (03/10/19 2:38 AM) ALT [14-54 U/L] 21 U/L (03/10/19 2:38 AM) MCHC [32.0-36.0 31.6 gm/dL gm/dL] *LOW* (03/24/19 4:50 AM) pH [7.35-7.45] 7.52 *HI* (03/15/19 9:00 AM) Prealbumin [18-38 9 mg/dL mg/dL] *LOW* (03/15/19 2:27 AM) Sodium Lvl [136-144 140 mEq/L mEq/L] (03/24/19 4:50 AM) UA RBC [0-2] 2-5 (03/07/19 5:27 PM) Folate Lvl [7.0-31.4 7.2 ng/mL ng/mL] (03/04/19 10:26 AM) UA Leuk Est Negative [Negative] (03/07/19 5:27 PM) Lymph Absolute 1.95 [0.80-3.30] (03/07/19 1:57 AM) UA Nitrite Negative [Negative] (03/07/19 5:27 PM) UA Glucose Negative [Negative] (03/07/19 5:27 PM) Hct [37.0-47.0 %] 23.4 % *LOW* (03/24/19 4:50 AM) UA Bacteria [None Rare Seen-Rare] (03/07/19 5:27 PM) Lipase Lvl [8-48 16 U/L U/L] (03/04/19 10:26 AM) Bili Indirect 0.6 mg/dL [0.0-1.0 mg/dL] (03/10/19 2:38 AM) Trig [0-149 mg/dL] 166 mg/dL 1 *HI* (03/20/19 5:11 AM) PTT [25.0-35.0 34.5 seconds seconds] (03/08/19 1:01 AM) Calcium Lvl 8.8 mg/dL [8.6-10.0 mg/dL] (03/24/19 4:50 AM) [place] Absolute 0.88 [0.30-1.00] (03/07/19 1:57 AM) Phosphorus [2.4-4.7 4.6 mg/dL 2 mg/dL] (03/24/19 4:50 AM) Albumin Lvl [3.5-4.8 2.5 gm/dL gm/dL] *LOW* (03/24/19 4:50 AM) Total Protein 4.2 gm/dL [6.1-7.9 gm/dL] *LOW* (03/10/19 2:38 AM) UA Protein Pos 1+ [Negative] *ABN* (03/07/19 5:27 PM) Iron Sat [11-46] NA (03/09/19 9:18 AM) Bicarbonate [22-26 40 mEq/L mEq/L] *HI* (03/15/19 9:00 AM) MCH [27.0-32.0 pg] 32.0 pg (03/24/19 4:50 AM) Magnesium Lvl 1.6 mg/dL [1.8-2.5 mg/dL] *LOW* (03/24/19 4:50 AM) Neutro Absolute 9.95 [1.90-7.00] *HI* (03/07/19 1:57 AM) Bili Total [0.2-1.2 1.2 mg/dL 3 mg/dL] (03/15/19 2:18 PM) Hgb [12.0-16.0 7.4 gm/dL gm/dL] *LOW* (03/24/19 4:50 AM) Transferrin [192-382 <70 mg/dL mg/dL] *LOW* (03/09/19 9:18 AM) FiO2 Art [0-100] 40 (03/08/19 6:11 AM) Vitamin B12 Lvl 1129 pg/mL [213-816 pg/mL] *HI* (03/04/19 10:26 AM) Alk Phos [26-104 72 U/L U/L] (03/10/19 2:38 AM) LDH [98-192 U/L] 395 U/L *HI* (03/06/19 3:01 AM) UA Blood [Negative] Negative (03/07/19 5:27 PM) MPV [9.4-12.4 fL] 10.1 fL (03/24/19 4:50 AM) UA Mucous Present (03/07/19 5:27 PM) UA Spec Grav 1.025 [1.003-1.030] (03/07/19 5:27 PM) Hep A IgM [Negative] Negative (03/14/19 2:45 AM) Ferritin Lvl [11-307 478 ng/mL ng/mL] *HI* (03/09/19 9:18 AM) Hep Bs Ag [Negative] Negative (03/14/19 2:45 AM) Bili Direct [0.0-0.2 0.5 mg/dL mg/dL] *HI* (03/10/19 2:38 AM) Platelet [150-400 689 10*3/uL 10*3/uL] *HI* (03/24/19 4:50 AM) Chloride [99-109 101 mEq/L mEq/L] (03/24/19 4:50 AM) D-Dimer [0-500 855 ng{FEU}/mL 4 ng{FEU}/mL] *HI* (03/08/19 1:01 AM) CO2 [22-32 mEq/L] 25 mEq/L (03/24/19 4:50 AM) AGAP [3-20 mEq/L] 14 mEq/L (03/24/19 4:50 AM) Eos Absolute 0.19 [0.00-0.50] (03/07/19 1:57 AM) TIBC [286-569] NA (03/09/19 9:18 AM) Calcium Ionized 1.28 mmol/L [1.19-1.41 mmol/L] (03/19/19 6:04 AM) Reticulocyte 8.1 % [0.6-2.5 %] *HI* (03/06/19 3:01 AM) Lactic Acid Lvl 3.2 mEq/L 5 [0.5-2.0 mEq/L] *HI* (03/07/19 7:39 AM) Ammonia [9-35 46 mcmol/L mcmol/L] *HI* (03/08/19 1:01 AM) Haptoglobin [36-195 151 mg/dL mg/dL] (03/06/19 3:01 AM) Iron [50-170 mcg/dL] 20 mcg/dL *LOW* (03/09/19 9:18 AM) RDW [11.5-14.5 %] 19.1 % *HI* (03/24/19 4:50 AM) Hep B Core IgM Negative [Negative] (03/14/19 2:45 AM) Macrocyte Present *ABN* (03/07/19 1:57 AM) Hep C Ab [Negative] Negative (03/14/19 2:45 AM) UA pH [5.0-8.0] 5.0 (03/07/19 5:27 PM) Antibody Screen Tube NEG (03/15/19 5:24 AM) Base Excess Art 16 [0-2] *HI* (03/15/19 9:00 AM) BNP [0-99 pg/mL] 412 pg/mL *HI* (03/24/19 4:50 AM) Fibrinogen Lvl 119 mg/dL [187-520 mg/dL] *LOW* (03/08/19 1:01 AM) UA Appear Sl Cloudy (03/07/19 5:27 PM) Immature 0.4 % Granulocytes (03/07/19 1:57 AM) [0.0-1.0 %] Nucleated RBC 0.0 /100 WBC Automated [0 /100 (03/07/19 1:57 AM) WBC] Differential Scanned Slide (03/07/19 1:57 AM) eGFR [>60 mL/min] >60 mL/min 6 (03/24/19 4:50 AM) Globulin [1.9-4.3 3.0 gm/dL gm/dL] (03/05/19 2:51 AM) Cortisol AM [7-18 16 mcg/dL mcg/dL] (03/09/19 8:43 AM) Epithelial Cells 0-2 [0-5] (03/07/19 5:27 PM) Set Rate 16 br/min (03/08/19 6:11 AM) O2 Panel Nasal Cannula (03/15/19 9:00 AM) PEEP 5.0 (03/08/19 6:11 AM) Set Vt 450 mL (03/08/19 6:11 AM) Vent Mode AC (03/08/19 6:11 AM) TSH with Reflex Free 3.12 mcIU/mL T4 [0.35-5.50 (03/05/19 2:51 AM) mcIU/mL] Creatinine Lvl 0.63 mg/dL [0.44-1.03 mg/dL] (03/24/19 4:50 AM) LPM Art 4.00 L/min (03/15/19 9:00 AM) Neutrophils [51-75 76 % %] *HI* (03/07/19 1:57 AM) Lymphocytes [20-46 15 % %] *LOW* (03/07/19 1:57 AM) Eosinophils [0-4 %] 2 % (03/07/19 1:57 AM) Basophils [0-2 %] 0 % (03/07/19 1:57 AM) Sodium Venous 137 mEq/L [136-144 mEq/L] (03/04/19 10:39 AM) Potassium Venous <2.0 mEq/L 7 [3.6-5.1 mEq/L] *LOW* (03/04/19 10:39 AM) Calcium Ionized 0.99 mmol/L Venous [1.19-1.41 *LOW* mmol/L] (03/04/19 10:39 AM) Total CO2 Venous 28 mEq/L [25-29 mEq/L] (03/04/19 10:39 AM) HGB Venous NPT 7.8 gm/dL [12.0-16.0 gm/dL] *LOW* (03/04/19 10:39 AM) HCT Venous 23.0 % [37.0-47.0 %] *LOW* (03/04/19 10:39 AM) Glucose Venous 92 mg/dL [70-100 mg/dL] (03/04/19 10:39 AM) BUN Venous [4-20] <3 *LOW* (03/04/19 10:39 AM) Creatinine Venous 0.8 mg/dL [0.4-1.0 mg/dL] (03/04/19 10:39 AM) Venous CL [99-109 99 mEq/L mEq/L] (03/04/19 10:39 AM) Anion Gap, Jv [3-20 10 mEq/L mEq/L] (03/04/19 10:39 AM) HIV 1 and 2 Abs Negative [Negative] (03/14/19 2:45 AM) Monocytes [4-11 %] 7 % (03/07/19 1:57 AM) P/F Ratio 280 (03/08/19 6:11 AM) Procalcitonin 1.35 ng/mL 8 [0.00-0.09 ng/mL] *HI* (03/11/19 8:26 AM) Blood Glucose, 103 mg/dL Capillary [70-100 *HI* mg/dL] (03/20/19 12:38 PM) 1Result Comment: U-Tbsriv-C-Cysteine at therapeutically achieved concentrations may lead to falsely low results. 2Result Comment: High dosages of liposomal Amphotericin B (AmBisome) therapy or other drug preparations that use a liposomal envelope to facilitate drug delivery may cause falsely elevated results for phosphorus. 3Result Comment: Naproxen, specifically the metabolite O-desmethylnaproxen, may cause spurious elevation in Total Bilirubin levels. 4Result Comment: A D Dimer result of <500 ng/mL FEU has a negative predictive value of approximately 100% for the exclusion of DVT and acute PE. 5Result Comment: Venipuncture immediately after or during the administration of Metamizole (Dipyrone) may lead to falsely low results. Venipuncture should be performed prior to the administration of Metamizole. 6Result Comment: Multiply eGFR results by 1.21 for race. 7Result Comment: This test was performed on a whole blood specimen. The presence or absence of hemolysis cannot be assessed. Hemolysis can falsely elevate potassium levels. 8Result Comment: Normal: <0.1 ng/mL (infants >72 hrs - adults) Suspected Lower Respiratory Tract Infection 0.10-0.25 ng/mL = Low likelihood for bacterial infection; Antibiotics discouraged. >0.25 ng/mL = Increased likelihood for bacterial infection; Antibiotics encouraged. Suspected Sepsis: Strongly consider initiating antibiotics in all unstable patients. 0.10-0.50 ng/mL = Low likelihood for sepsis; Antibiotics discouraged. >0.50 ng/mL = Increased likelihood for sepsis; Antibiotics encouraged. Decisions on antibiotic use should not be based solely on procalcitonin levels. If antibiotics are administered, repeat procalcitonin testing should be obtained every 2-3 days to consider early antibiotic cessation. PCT is a dynamic biomarker and most useful when trends are analyzed over time in accompaniment with other clinical data. Interpretation should be based upon clinical context and algorithms. Microbiology Reports TEST: Fluid Culture and Smear STATUS: Auth (Verified) BODY SITE: SOURCE: Pleural Fluid COLLECTED DATE/TIME: 03/09/19 9:00 AM Gram Smear Many (10-20/OIF) white blood cells Rare (0-1/OIF) gram positive cocci Moderate (5-10/OIF) red blood cells OIF=Oil Immersion Field LPF=Low Power Field TEST: Anaerobic Culture STATUS: Auth (Verified) BODY SITE: SOURCE: Pleural Fluid COLLECTED DATE/TIME: 03/09/19 9:00 AM Anaerobic Culture No anaerobes isolated TEST: Blood Culture STATUS: Auth (Verified) BODY SITE: SOURCE: Blood COLLECTED DATE/TIME: 03/04/19 11:14 AM Blood Culture No growth after 5 days of incubation. TEST: Blood Culture STATUS: Auth (Verified) BODY SITE: SOURCE: Blood COLLECTED DATE/TIME: 03/04/19 10:26 AM Blood Culture No growth after 5 days of incubation. Immunizations No data available for this section Procedures Procedure Date Related Diagnosis Body Site Status Arterial puncture, withdrawal of blood for 03/15/19 Completed diagnosis Esophagogastroduodenoscopy - SN1 03/15/19 Compl eted Naso- or desiree-gastric tube placement, 03/12/19 C ompleted requiring physician's skill and fluoros copic guidance (includes fluoroscopy, image documentation and report) Insertion of peripherally inserted central 03/10/19 Completed venous catheter (PICC), without subcuta neous port or pump, without imaging guidance; age 5 years or older Arterial puncture, withdrawal of blood for 03/08/19 Completed diagnosis Arterial puncture, withdrawal of blood for 03/07/19 Completed diagnosis Esophagogastroduodenoscopy - SN2 03/07/19 Compl eted Insertion of peripherally inserted central 03/07/19 Completed venous catheter (PICC), without subcuta neous port or pump, without imaging guidance; age 5 years or older Thoracentesis, needle or catheter, aspiration 03/07/19 Completed of the pleural space; with imaging guid ance.. 1auto-populated from documented surgical case 2auto-populated from documented surgical case Social History Social History Type Response Smoking Status 10 or more cigarettes (1/2 pack or more)/day in last 30 days; Type: Cigarettes entered on: 03/04/19 Assessment and Plan No data available for this section
--- OUTSIDE RECORDS SUMMARY | 2020-04-16 10:22 | XMS REPORT | Referral Summary ---
Author Author [facility] Organization [facility] Address Unknown Phone Unavailable Care Team Providers Care Senior Capital Markets Specialist Name Role Phone [facility] PCP Unavailable Encounter [facility] [id number] Date(s): 01/30/20 - 02/02/20 [place] [facility] [address] [place] [address] [phone] Encounter Diagnosis Ulcer of lower extremity (Discharge Diagnosis) - 02/01/20 Discharge Disposition: 01-Home or Self Care Attending Physician: Linda Acosta MD Admitting Physician: Linda Acosta MD Vital Signs Most recent to 1 oldest [Reference Range]: Temperature Oral 36.7 degC [35.8-37.3 degC] (02/02/20 11:00 AM) Peripheral Pulse 96 bpm Rate [60-100 bpm] (02/02/20 11:00 AM) Heart Rate Monitored 120 bpm [60-100 bpm] *HI* (02/02/20 4:54 AM) Respiratory Rate 12 br/min [14-20 br/min] *LOW* (02/02/20 11:00 AM) Blood Pressure 106/80 mmHg [90-140/60-90 mmHg] (02/02/20 11:00 AM) Mean Arterial 72 mmHg Pressure, Cuff (02/02/20 5:50 AM) SpO2 100 % (02/02/20 11:00 AM) Remote Telemetry Ongoing (02/02/20 4:54 AM) Problem List Condition Effective Dates Status [...] Adverse Reactions, Alerts No Known Allergies Medications clindamycin 300 mg oral capsule 300 mg 1 caps, Oral, q8hr, X 5 days, # 15 caps, 0 Refill(s), Pharmacy: [facility], 1 caps Oral q8hr,x5 days Start Date: 02/02/20 Stop Date: 02/07/20 Status: Ordered pantoprazole 40 mg oral delayed release tablet 40 mg 1 tabs, Oral, Daily, # 30 tabs, 0 Refill(s), Pharmacy: [facility], 1 tabs Oral Daily Start Date: 02/02/20 Status: Ordered sucralfate 1 g oral tablet 1 g 1 tabs, Oral, QID, # 120 tabs, 0 Refill(s), Pharmacy: [facility], 1 t abs Oral QID Start Date: 02/02/20 Status: Ordered Ultram 50 mg oral tablet 50 mg 1 tabs, Oral, q6hr, Pain Moderate (4-6), # 10 tabs, 0 Refill(s), Pharmacy: [facility], 1 tabs Oral q6hr,PRN:Pain Moderate (4-6) Start Date: 02/02/20 Stop Date: 02/05/20 Status: Ordered Results Most recent to 1 oldest [Reference Range]: Lactic Acid-POC 5.5 mEq/L [0.5-2.0 mEq/L] *HHI* (01/30/20 8:14 PM) WBC [4.8-10.8 5.8 10*3/uL 10*3/uL] (02/01/20 5:17 AM) RBC [4.00-5.20] 3.98 *LOW* (02/01/20 5:17 AM) BUN [4-20 mg/dL] 8 mg/dL (02/02/20 5:42 AM) UA Color Yellow (01/31/20 2:15 AM) UA WBC [0-4] 10-20 *ABN* (01/31/20 2:15 AM) Type Not Specified (01/31/20 2:15 AM) Troponin [<0.06 <0.05 ng/mL ng/mL] (02/02/20 7:49 AM) Glucose Lvl [70-100 89 mg/dL mg/dL] (02/02/20 5:42 AM) Potassium Lvl 3.2 mEq/L [3.6-5.1 mEq/L] *LOW* (02/02/20 5:42 AM) Baso Absolute 0.01 [0.00-0.20] (01/31/20 5:23 AM) MCV [82.0-99.0 fL] 92.2 fL (02/01/20 5:17 AM) UA Urobilinogen 2.0 mg/dL [<1.0 mg/dL] *ABN* (01/31/20 2:15 AM) UA Bili [Negative] Negative (01/31/20 2:15 AM) UA Ketones Negative [Negative] (01/31/20 2:15 AM) AST [15-41 U/L] 108 U/L *HI* (02/02/20 5:42 AM) ALT [14-54 U/L] 46 U/L (02/02/20 5:42 AM) MCHC [32.0-36.0 32.4 gm/dL gm/dL] (02/01/20 5:17 AM) Sodium Lvl [136-144 128 mEq/L mEq/L] *LOW* (02/02/20 5:42 AM) UA RBC [0-2] 0-2 (01/31/20 2:15 AM) UA Leuk Est Pos 2+ [Negative] *ABN* (01/31/20 2:15 AM) Lymph Absolute 1.33 [0.80-3.30] (01/31/20 5:23 AM) UA Nitrite Negative [Negative] (01/31/20 2:15 AM) UA Glucose Negative [Negative] (01/31/20 2:15 AM) Hct [37.0-47.0 %] 36.7 % *LOW* (02/01/20 5:17 AM) UA Bacteria [None Numerous Seen-Rare] *ABN* (01/31/20 2:15 AM) Lipase Lvl [8-48 27 U/L U/L] (01/30/20 7:36 PM) Calcium Lvl 7.4 mg/dL [8.6-10.0 mg/dL] *LOW* (02/02/20 5:42 AM) [place] Absolute 0.78 [0.30-1.00] (01/31/20 5:23 AM) Albumin Lvl [3.5-4.8 1.9 gm/dL gm/dL] *LOW* (02/02/20:42 AM) Total Protein 4.7 gm/dL [6.1-7.9 gm/dL] *LOW* (02/02/20 5:42 AM) UA Protein Negative [Negative] (01/31/20 2:15 AM) MCH [27.0-32.0 pg] 29.9 pg (02/01/20:17 AM) Magnesium Lvl 1.8 mg/dL [1.8-2.5 mg/dL] (02/02/20 5:42 AM) Neutro Absolute 11.12 [1.90-7.00] *HI* (01/31/20 5:23 AM) Bili Total [0.2-1.2 1.0 mg/dL 1 mg/dL] (02/02/20 5:42 AM) Hgb [12.0-16.0 11.9 gm/dL gm/dL] *LOW* (02/01/20 5:17 AM) Alk Phos [26-104 165 U/L U/L] *HI* (02/02/20:42 AM) UA Blood [Negative] Negative (01/31/20 2:15 AM) MPV [9.4-12.4 fL] 10.3 fL (02/01/20 5:17 AM) UA Mucous Present (01/31/20 2:15 AM) UA Spec Grav 1.035 [1.003-1.030] *ABN* (01/31/20 2:15 AM) Platelet [150-400 135 10*3/uL 10*3/uL] *LOW* (02/01/20 5:17 AM) Chloride [99-109 93 mEq/L mEq/L] *LOW* (02/02/20:42 AM) CO2 [22-32 mEq/L] 22 mEq/L (02/02/20 5:42 AM) AGAP [3-20 mEq/L] 13 mEq/L (02/02/20 5:42 AM) Eos Absolute 0.01 [0.00-0.50] (01/31/20:23 AM) Lactic Acid Lvl 1.0 mEq/L 2 [0.5-2.0 mEq/L] (02/01/20:17 AM) RDW [11.5-14.5 %] 19.3 % *HI* (02/01/20 5:17 AM) UA pH [5.0-8.0] 6.0 (01/31/20 2:15 AM) UA Appear Sl Cloudy (01/31/20 2:15 AM) Immature 0.4 % Granulocytes (01/31/20:23 AM) [0.0-1.0 %] Nucleated RBC 0.0 /100 WBC Automated [0 /100 (01/31/20:23 AM) WBC] eGFR [>60 mL/min] 44 mL/min 3 *ABN* (02/02/20 5:42 AM) Globulin [1.9-4.3 2.8 gm/dL gm/dL] (02/02/20 5:42 AM) Epithelial Cells 0-2 [0-5] (01/31/20 2:15 AM) Creatinine Lvl 1.24 mg/dL [0.44-1.03 mg/dL] *HI* (02/02/20 5:42 AM) Neutrophils [51-75 84 % %] *HI* (01/31/20:23 AM) Lymphocytes [20-46 10 % %] *LOW* (01/31/20:23 AM) Eosinophils [0-4 %] 0 % (01/31/20 5:23 AM) Basophils [0-2 %] 0 % (01/31/20 5:23 AM) Monocytes [4-11 %] 6 % (01/31/20 5:23 AM) 1Result Comment: Naproxen, specifically the metabolite O-desmethylnaproxen, may cause spurious elevation in Total Bilirubin levels. P-dkkwgy-e-benzoquinone imine (NAPQ1), a metabolite of acetaminophen, may cause negative interference in Total and/or Direct Bilirubin if present in high serum quantities due to acetaminophen overdose. 2Result Comment: Venipuncture immediately after or during the administration of Metamizole (Dipyrone) may lead to falsely low results. Venipuncture should be performed prior to the administration of Metamizole. 3Result Comment: Multiply eGFR results by 1.21 for race. Microbiology Reports TEST: Wound Culture and Smear STATUS: Order in Progress BODY SITE: Ankle, Right SOURCE: Skin COLLECTED DATE/TIME: 01/31/20 2:30 AM Gram Smear Few (1-5/OIF) white blood cells Rare (0-1/OIF) squamous epithelial cells Few (1-5/OIF) gram positive cocci in pairs OIF=Oil Immersion Field LPF=Low Power Field ORGANISM:Staphylococcus aureus TEST: Anaerobic Culture STATUS: Order in Progress BODY SITE: Ankle, Right SOURCE: Skin COLLECTED DATE/TIME: 01/31/20 2:30 AM Anaerobic Culture No anaerobes isolated to date TEST: Urine Culture STATUS: Auth (Verified) BODY SITE: SOURCE: Urine COLLECTED DATE/TIME: 01/31/20 2:15 AM Urine Culture No growth TEST: Blood Culture1 STATUS: Order in Progress BODY SITE: SOURCE: Blood COLLECTED DATE/TIME: 01/30/20 10:15 PM Blood Culture No growth after 12 hours incubation. Nursing unit/client will be called if growth is detected. - TEST: Blood Culture2 STATUS: Order in Progress BODY SITE: SOURCE: Blood COLLECTED DATE/TIME: 01/30/20 10:15 PM Blood Culture No growth after 12 hours incubation. Nursing unit/client will be called if growth is detected. - INTERPRETIVE DATA 1Volume of blood not known 2Volume of blood not known Immunizations No [...]
--- OUTSIDE RECORDS SUMMARY | 2020-04-16 10:22 | XMS REPORT ---
Author Author David Stack [facility] Address [address] [place] [id number] Care Team Providers Care Hardware Supplies Sales Representative Name Role Phone Gisell Stack Unavailable PROBLEMS Unknown Problems ALLERGIES No Information ENCOUNTERS Encounter Location Date Diagnosis [facility] [address] [place] [address] [id number] Feb, Contact with and (suspected) exposure to other viral communicable diseases Z20.828 [facility] [address] [place] [address] [id number] Feb, Contact with and (suspected) exposure to other viral communicable diseases Z20.828 IMMUNIZATIONS No Known Immunizations SOCIAL HISTORY Never Assessed REASON FOR VISIT PLAN OF CARE VITAL SIGNS MEDICATIONS Unknown Medications RESULTS No Results PROCEDURES No Known procedures INSTRUCTIONS MEDICATIONS ADMINISTERED No Known Medications
--- OUTSIDE RECORDS SUMMARY | 2020-04-16 10:22 | XMS REPORT ---
Author Author BEVERLY Shepherd [facility] Address [address] [phone] Care Team Providers Care Passenger Service Representative Name Role Phone Narinder Shepherd Unavailable PROBLEMS Unknown Problems ALLERGIES No Information ENCOUNTERS Encounter Location Date Diagnosis [facility] [address] [phone] Nov, [facility] [address] [facility] [address] [place], [place] [id number] 2 Mar, IMMUNIZATIONS No Known Immunizations SOCIAL HISTORY Never Assessed REASON FOR VISIT Per GI proc report PLAN OF CARE VITAL SIGNS MEDICATIONS Unknown Medications RESULTS No Results PROCEDURES No Known procedures INSTRUCTIONS MEDICATIONS ADMINISTERED No Known Medications
--- OUTSIDE RECORDS SUMMARY | 2020-04-16 10:22 | XMS REPORT ---
Author Author Sriram Stack [facility] Address [address] [place] [address] Care Team Providers Care Commodity Analyst Name Role Phone Sreekanth Gisell Unavailable PROBLEMS Type Condition ICD9-CM Code [id number] Code Onset Dates Condition S tatus SNOMED Code Problem History of alcohol abuse F10.11 Activ e 830181685 Problem Hypomagnesemia E83.42 Active 76730 [id number] Problem Chronic malnutrition E46 Active Problem Diastolic dysfunction without heart failure I51.89 Active [id number] ALLERGIES No Known Allergies ENCOUNTERS Encounter Location Date Diagnosis [address] [id number] Feb, History of substance abuse F19.11 ; History of alcohol abuse F10.11 ; Routine screening for STI (sexually transmitted infection) Z11.3 ; Pericardial effusion I31.3 ; Chronic malnutrition E46 ; Hypomagnesemia E83.42 ; Hypokalemia E87.6 ; Pain in right leg M79.604 and Pain in left leg M79.[address] [id number] Feb, Contact with and (suspected) exposure to other viral communicable diseases Z20.[address] [id number] Feb, Contact with and (suspected) exposure to other viral communicable diseases Z20.828 IMMUNIZATIONS No Known Immunizations SOCIAL HISTORY Never Assessed REASON FOR VISIT Physical PLAN OF CARE Activity Details Follow Up prn, after dc from facility Reason: Pending Test SURESWAB(R) TRICHOMONAS VAGI NALIS RNA, QL, TMA Pending Test RPR (DX) W/REFL TITER AND CO NFIRMATORY TESTING Pending Test BASIC METABOLIC PANEL Pending Test HEPATIC FUNCTION PANEL Pending Test MAGNESIUM Pending Test CBC (INCLUDES DIFF/PLT) Pending Test HEPATITIS C AB W/RFL RNA, PC R W/RFL GENOTYPE,LIPA Pending Test CHLAMYDIA/N. GONORRHOEAE RNA , TMA, UROGENITAL Pending Test HIV 1/2 ANTIGEN/ANTIBODY,FOU RTH GENERATION W/RFL VITAL SIGNS Temperature 99.3 degrees Fahrenheit 2020-03-20 Heart Rate 78 /min 2020-03-20 Oximetry 98 % 2020-03-20 Weight 125 lbs 2020-03-20 Height 62 in 2020-03-20 BMI 22.86 kg/m2 2020-03-20 Blood pressure systolic 116 mm Hg 2020-03-20 Blood pressure diastolic 86 mm Hg 2020-03-20 MEDICATIONS Medication Instructions Dosage Frequency Start Date End Date Duration S tatus Miconazole Nitrate 2 % Externally Twice a day 1 application 12h Active Famotidine 20 MG Orally every 12 hrs 1 tablet as needed 12h Active Sucralfate Active Tramadol HCl 50 MG Orally every 12 hrs 1 tablet as needed 12h 30 days Active RESULTS No Results PROCEDURES Procedure Date Ordered Result Body Site TRICHOMONAS VAGINALIS AMPLIF March 20, 2020 Client Billed Lab March 20, 2020 HEPATITIS C AB TEST March 20, 2020 INSTRUCTIONS MEDICATIONS ADMINISTERED No Known Medications MEDICAL (GENERAL) HISTORY Type Description Date Medical History stomach issues Hospitalization History 03/06/2020 to 03/13/2020 for alcohol (N o KAMALJIT) 02/2020
--- OUTSIDE RECORDS SUMMARY | 2020-04-16 10:22 | XMS REPORT ---
Author Author BEVERLY Chappell Organization [facility] Address [address] [place] [address] Care Team Providers Care Boat Engine Mechanic Name Role Phone Jennifer Chappell Unavailable PROBLEMS Unknown Problems ALLERGIES No Information ENCOUNTERS Encounter Location Date Diagnosis [facility] [address] [place] [place], [place] [phone] Feb, [facility] [address], [place] [phone] Jan, [facility] [address] [place], [place] [phone] Nov, [facility] [address] [facility] [address] [place], [place] [id number] 2 Mar, IMMUNIZATIONS No Known Immunizations SOCIAL HISTORY Never Assessed REASON FOR VISIT path results PLAN OF CARE VITAL SIGNS MEDICATIONS Unknown Medications RESULTS No Results PROCEDURES No Known procedures INSTRUCTIONS MEDICATIONS ADMINISTERED No Known Medications
--- OUTSIDE RECORDS SUMMARY | 2020-04-16 10:22 | XMS REPORT | Referral Summary ---
Author Author [facility] Organization [facility] Address Unknown Phone Unavailable Care Team Providers Care Radio Program Checker Name Role Phone [facility] PCP Unavailable Encounter VC Date(s): 12/25/19 - 12/25/19 [facility] [address] [place], [place] [address] Encounter Diagnosis Acute abdominal pain (Discharge Diagnosis) - 12/25/19 Acute gastritis (Discharge Diagnosis) - 12/25/19 Discharge Disposition: 01-Home or Self Care Attending Physician: Magdiel Vilchis DO Admitting Physician: Magdiel Vilchis DO Vital Signs Most recent to 1 oldest [Reference Range]: Temperature Oral 37.2 degC [35.8-37.3 degC] (12/25/19 6:14 PM) Peripheral Pulse 84 bpm Rate [60-100 bpm] (12/25/19 6:14 PM) Heart Rate Monitored 82 bpm [60-100 bpm] (12/25/19 8:40 PM) Respiratory Rate 16 br/min [14-20 br/min] (12/25/19 6:14 PM) Blood Pressure 120/72 mmHg [90-140/60-90 mmHg] (12/25/19 8:40 PM) Mean Arterial 89 mmHg Pressure, Cuff (12/25/19 8:40 PM) SpO2 97 % (12/25/19 8:40 PM) Problem List Condition Effective Dates Status Health Status Informan t Acute Active pain(Confirmed) Alteration in Active nutrition(Confirmed) 1 At risk for Active injury(Confirmed)2 At risk of pressure Active sore(Confirmed) Cirrhosis of Active liver(Confirmed) Impaired gas Active exchange(Confirmed)3 Impaired skin Active [...] 0 Refill(s) Start Date: 03/24/19 Status: Ordered ondansetron 4 mg oral tablet, disintegrating See Instructions, 1 tabs Oral q6-8hrs prn nausea/vomiting, # 12 tabs, 0 Refill(s ) Start Date: 12/25/19 Status: Ordered oxyCODONE 5 mg oral tablet 5 mg 1 tabs, Oral, q24hr, Pain Severe (7-10), 0 Refill(s) Start Date: 03/24/19 Status: Ordered pantoprazole 40 mg oral delayed release tablet 40 mg 1 tabs, Oral, BID, 0 Refill(s) Start Date: 03/24/19 Status: Ordered Protonix 40 mg oral delayed release tablet 40 mg 1 tabs, Oral, Daily, # 30 tabs, 0 Refill(s) Start Date: 12/25/19 Status: Ordered Remeron 15 mg oral tablet 15 mg 1 tabs, Oral, Bedtime (once a day), 0 Refill(s) Start Date: 03/24/19 Status: Ordered Tylenol 325 mg oral capsule 650 mg 2 caps, Oral, q4hr, as needed for pain, # 20 caps, 0 Refill(s) Start Date: 03/04/19 Status: Ordered Results Most recent to 1 oldest [Reference Range]: WBC [4.8-10.8 11.8 10*3/uL 10*3/uL] *HI* (12/25/19 6:10 PM) RBC [4.00-5.20] 3.29 *LOW* (12/25/19 6:10 PM) BUN [4-20 mg/dL] 16 mg/dL (12/25/19 6:10 PM) Troponin [<0.06 <0.05 ng/mL ng/mL] (12/25/19 6:10 PM) Glucose Lvl [70-100 107 mg/dL mg/dL] *HI* (12/25/19 6:10 PM) Potassium Lvl 2.7 mEq/L [3.6-5.1 mEq/L] *LOW* (12/25/19 6:10 PM) MCV [82.0-99.0 fL] 95.7 fL (12/25/19 6:10 PM) AST [15-41 U/L] 14 U/L *LOW* (12/25/19 6:10 PM) ALT [14-54 U/L] 9 U/L *LOW* (12/25/19 6:10 PM) MCHC [32.0-36.0 33.0 gm/dL gm/dL] (12/25/19 6:10 PM) Sodium Lvl [136-144 134 mEq/L mEq/L] *LOW* (12/25/19 6:10 PM) Hct [37.0-47.0 %] 31.5 % *LOW* (12/25/19 6:10 PM) Lipase Lvl [8-48 21 U/L U/L] (12/25/19 6:10 PM) Calcium Lvl 7.9 mg/dL [8.6-10.0 mg/dL] *LOW* (12/25/19 6:10 PM) Albumin Lvl [3.5-4.8 2.7 gm/dL gm/dL] *LOW* (12/25/19 6:10 PM) Total Protein 5.5 gm/dL [6.1-7.9 gm/dL] *LOW* (12/25/19 6:10 PM) MCH [27.0-32.0 pg] 31.6 pg (12/25/19 6:10 PM) Bili Total [0.2-1.2 0.4 mg/dL 1 mg/dL] (12/25/19 6:10 PM) Hgb [12.0-16.0 10.4 gm/dL gm/dL] *LOW* (12/25/19 6:10 PM) Alk Phos [26-104 103 U/L U/L] (12/25/19 6:10 PM) MPV [9.4-12.4 fL] 9.4 fL (12/25/19 6:10 PM) Ethanol Lvl [None 142 mg/dL Detected mg/dL] (12/25/19 6:10 PM) Platelet [150-400 327 10*3/uL 10*3/uL] (12/25/19 6:10 PM) Chloride [99-109 94 mEq/L mEq/L] *LOW* (12/25/19 6:10 PM) CO2 [22-32 mEq/L] 29 mEq/L (12/25/19 6:10 PM) AGAP [3-20 mEq/L] 11 mEq/L (12/25/19 6:10 PM) RDW [11.5-14.5 %] 16.9 % *HI* (12/25/19 6:10 PM) eGFR [>60 mL/min] >60 mL/min 2 (12/25/19 6:10 PM) Globulin [1.9-4.3 2.8 gm/dL gm/dL] (12/25/19 6:10 PM) Creatinine Lvl 0.87 mg/dL [0.44-1.03 mg/dL] (12/25/19 6:10 PM) 1Result Comment: Naproxen, specifically the metabolite O-desmethylnaproxen, may cause spurious elevation in Total Bilirubin levels. W-zedtdk-r-benzoquinone imine (NAPQ1), a metabolite of acetaminophen, may [...]
--- OUTSIDE RECORDS SUMMARY | 2020-04-16 10:22 | XMS REPORT | Referral Summary ---
Author Author [email or web address] Organization [email or web address] Address Unknown Phone Unavailable Care Team Providers Care Hull Sorter Name Role Phone No PCP, Pt States PCP Encounter VC Date(s): 10/04/19 - 10/04/19 [facility] [address], [place] [address] Discharge Disposition: Against Medical Advice Attending Physician: Magdiel Vilchis DO Admitting Physician: Magdiel Vilchis DO Vital Signs Most recent to 1 oldest [Reference Range]: Temperature Oral 36.6 degC [35.8-37.3 degC] (10/04/19 1:34 PM) Peripheral Pulse 63 bpm Rate [60-100 bpm] (10/04/19 1:34 PM) Heart Rate Monitored 87 bpm [60-100 bpm] (10/04/19 3:00 PM) Respiratory Rate 16 br/min [14-20 br/min] (10/04/19 1:34 PM) Blood Pressure 111/74 mmHg [90-140/60-90 mmHg] (10/04/19 3:00 PM) Mean Arterial 89 mmHg Pressure, Cuff (10/04/19 3:00 PM) SpO2 98 % (10/04/19 3:00 PM) Problem List Condition Effective Dates Status [...]
--- OUTSIDE RECORDS SUMMARY | 2020-04-16 10:24 | XMS REPORT | Continuity of Care Document ---
Demographics Preferred Language Unknown Marital Status Unknown Jainism Affiliation Unknown Race Unknown Ethnic Group Unknown Author Author [facility] Address Unknown Phone Unavailable Allergies Active Description Code Type Severity Reaction Onset Reported/Identified Relationship to Patient Clinical Status Yes No Known Allergies Drug Allerg y N/A N/A 02/20/2013 Yes No Known Drug Allergies Drug Allergy N/A N/A 02/20/2013 Yes No Known Food Allergies Food Allergy N/A N/A 02/20/2013 Yes No Known Allergies No Known Allergies Drug Allergy Unknown N/A 02/07/2019 Yes No Known Allergies NKMA N/A N/A 03/04/2019 Medications Medication Packaging Start Date St op Date Route Dosage Sig cefTRIAXone(cefTRIAXone) 03/04/2019 03/04/2019 IV Push 1,000 mg 1,000 mg, IV Push, Once azithromycin(azithromycin) 5 mL 03/04/2019 03/04/2019 IV Piggyback 500 mg 500 mg = 5 mL, 255 mL/hr, IV Piggyback, Once potassium chloride(potassium chloride 20 mEq/100 mL intravenous solution) 100 mL 03/04/2019 9 IV Piggyback 20 mEq 20 mE q = 100 mL, 50 mL/hr, IV Piggyback, Once potassium chloride(potassium chloride 20 mEq oral tablet, extended release) 2 tabs 03/04/2019 03/04/2019 Oral 40 mEq 40 mEq = 2 tabs, Oral, Once acetaminophen(Tylenol 325 mg oral capsule) 2 caps 03/04/2019 Oral 650 mg 650 mg = 2 caps, Oral, q4hr, PRN: as needed for pain, 20 caps, 0 Refill(s) ocular lubricant(ocular lubr icant ophthalmic solution) 1 drops 03/04/2019 03/24/2019 Eye- Both 1 drops, Eye-Bot h, q1hr, PRN: Dry Eyes magnesium sulfate(magnesium sulfate) 50 mL 03/04/2019 03/04/2019 IV Piggyback 2 g 2 g = 50 mL, 12.5 mL/hr, IV Piggyback, Once Lactated Ringers Injection(L actated Ringers Injection 1,000 mL) 1,000 mL 03/04/2019 03/07/2019 IV 125 mL/hr, IV potassium chloride(potassium chloride 20 mEq oral tablet, extended release) 2 tabs 03/04/2019 03/04/2019 Oral 40 mEq 40 mEq = 2 tabs, Oral, q2hr ondansetron(Zofran) 2 mL 03/04/2019 03/24/2019 IV Push 4 mg 4 mg = 2 mL, IV Push, q6hr, PRN: Nausea calcium carbonate(Tums) 1 ta bs 03/04/2019 03/16/2019 Oral 500 mg 500 mg = 1 tabs, Oral, q4hr, PRN: GERD/Heartburn acetaminophen(acetaminophen) 2 tabs 03/04/2019 03/24/2019 Oral 650 mg 650 mg = 2 tabs, Oral, q4hr, PRN: Other (See Comment) vancomycin(vancomycin) 20 mL 03/04/2019 03/04/2019 IV Piggyback 1 g 1 g = 20 mL, 270 mL/hr, IV Piggyback, Once potassium chloride(potassium chloride 20 mEq oral tablet, extended release) 2 tabs 03/04/2019 03/04/2019 Oral 40 mEq 40 mEq = 2 tabs, Oral, q3hr (scheduled) potassium chloride(potassium chloride 20 mEq oral tablet, extended release) 2 tabs 03/04/2019 03/05/2019 Oral 40 mEq 40 mEq = 2 tabs, Oral, q2hr nicotine(nicotine 21 mg/24 h r transdermal film, extended release) 1 patches 03/05/2019 03/23/2019 TransDermal 1 patches, Trans Dermal, Daily miconazole topical(miconazol e 2% topical powder) 1 macario 03/05/2019 03/08/2019 Topical 1 macario, Topical, q4hr, PRN: R andrei guaiFENesin-dextromethorphan (dextromethorphan-guaiFENesin 30 mg-600 mg oral tablet, extended release) 1 tabs 03/05/2019 03/14/2019 Oral 1 tabs, Oral, BID, PRN: Cough ketorolac(Toradol) 1 mL 03/05/2019 03/05/2019 IV Push 15 mg 15 mg = 1 mL, IV Push, Once diphenhydrAMINE(Benadryl) 1 tabs 03/05/2019 03/21/2019 Oral 25 mg 25 mg = 1 tabs, Oral, q6hr, PRN: Pruritus/Itching ibuprofen(ibuprofen) 1 tabs 03/05/2019 03/07/2019 Oral 600 mg 600 mg = 1 tabs, Oral, q6hr, PRN: Pain Mild (1-3) magnesium sulfate(magnesium sulfate) 50 mL 03/06/2019 03/06/2019 IV Piggyback 2 g 2 g = 50 mL, 12.5 mL/hr, IV Piggyback, Once potassium chloride(potassium chloride 20 mEq oral tablet, extended release) 2 tabs 03/06/2019 03/06/2019 Oral 40 mEq 40 mEq = 2 tabs, Oral, Once cefepime(cefepime) 10 mL 03/06/2019 03/11/2019 IV Push 1 g 1 g = 10 mL, IV Push, q8hr pantoprazole(Protonix) 1 tab s 03/07/2019 03/07/2019 Oral 40 mg 40 mg = 1 tabs, Oral, Daily morphine(morphine) 1 mL 03/07/2019 03/07/2019 IV Push 2 mg 2 mg = 1 mL, IV Push, Once, PRN: Pain albumin human(Albumin 25% (2 5 Gm per 100 ml) IV) 100 mL 03/07/2019 03/08/2019 IV 25 g 25 g = 100 mL, 100 mL/hr, IV , q6hr oxyCODONE(oxyCODONE) 5 mL 03/07/2019 03/07/2019 Oral 5 mg 5 mg = 5 mL, Oral, q6hr, PRN: Pain Severe (7-10) morphine(morphine) 1 mL 03/07/2019 03/08/2019 IV Push 2 mg 2 mg = 1 mL, IV Push, q6hr, PRN: Pain ipratropium-albuterol(DuoNeb 0.5 mg-2.5 mg/3 mL inhalation solution) 3 mL 03/07/2019 03/24/2019 NE B 3 mL, NEB, QID Sodium Chloride 0.9% intrave nous solutio(Sodium Chloride 0.9% Bolus) 500 mL 03/07/2019 03/07/2019 Bolus IV 500 mL, Bolus IV , Once lidocaine(lidocaine 1% injectable solution ) 5 mL 03/07/2019 03/07/2019 IntraDermal 5 mL, IntraDermal, Once Sodium Chloride 0.9% intrave nous solutio(Sodium Chloride 0.9% Bolus) 500 mL 03/08/2019 03/08/2019 Bolus IV 500 mL, Bolus IV , Once Sodium Chloride 0.9% intrave nous solutio(Sodium Chloride 0.9% Bolus) 500 mL 03/08/2019 03/08/2019 Bolus IV 500 mL, Bolus IV , Once miconazole topical(miconazol e 2% topical powder) 1 macario 03/08/2019 03/24/2019 Topical 1 macario, Topical, BID, PRN: Ra bumetanide(Bumex) 4 mL 03/08/2019 03/12/2019 IV Push 1 mg 1 mg = 4 mL, IV Push, QID, PRN: Other (See Comment) thiamine(thiamine) 1 mL 03/08/2019 03/10/2019 IV Push 100 mg 100 mg = 1 mL, IV Push, Daily HYDROmorphone(Dilaudid) 0.5 mL 03/08/2019 03/10/2019 IV Push 0.5 mg 0.5 mg = 0.5 mL, IV Push, q6hr, PRN: Pain potassium chloride(potassium chloride 20 mEq oral tablet, extended release) 2 packets 03/09/2019 03/10/2019 Oral 40 mEq 40 mEq = 2 packets, Oral, BID thiamine(thiamine) 1 tabs 03/10/2019 03/16/2019 Oral 100 mg 100 mg = 1 tabs, Oral, Daily oxyCODONE(oxyCODONE) 1 tabs 03/10/2019 03/24/2019 Oral 5 mg 5 mg = 1 tabs, Oral, q24hr, PRN: Pain Severe (7-10) sucralfate(Carafate) 10 mL 03/10/2019 03/20/2019 Oral 1 g 1 g = 10 mL, Oral, QID magnesium sulfate(magnesium sulfate) 50 mL 03/11/2019 03/11/2019 IV Piggyback 2 g 2 g = 50 mL, 25 mL/hr, IV Pi ggyback, Once bumetanide(Bumex) 4 mL 03/11/2019 03/11/2019 IV Push 1 mg 1 mg = 4 mL, IV Push, Once potassium phosphate(potassium phosphate) 10 mL 03/12/2019 03/12/2019 IV Piggyback 30 mmol 30 mmol = 10 mL, 65 mL/hr, I V Piggyback, Once magnesium sulfate(magnesium sulfate) 50 mL 03/12/2019 03/12/2019 IV Piggyback 2 g 2 g = 50 mL, 25 mL/hr, IV Pi ggyback, Once potassium chloride(potassium chloride 20 mEq oral tablet, extended release) 2 tabs 03/12/2019 03/12/2019 Oral 40 mEq 40 mEq = 2 tabs, Oral, Once potassium chloride(potassium chloride 20 mEq/100 mL intravenous solution) 200 mL 03/12/2019 9 IV Piggyback 40 mEq 40 mE q = 200 mL, 50 mL/hr, IV Piggyback, Once potassium chloride(potassium chloride 20 mEq/100 mL intravenous solution) 100 mL 03/12/2019 9 IV Piggyback 20 mEq 20 mE q = 100 mL, 50 mL/hr, IV Piggyback, Once potassium chloride(potassium chloride 20 mEq/100 mL intravenous solution) 100 mL 03/12/2019 9 IV Piggyback 20 mEq 20 mE q = 100 mL, 50 mL/hr, IV Piggyback, Once potassium phosphate(potassium phosphate) 10 mL 03/13/2019 03/13/2019 IV Piggyback 30 mmol 30 mmol = 10 mL, 55 mL/hr, I V Piggyback, Once potassium chloride(potassium chloride 20 mEq oral tablet, extended release) 2 tabs 03/13/2019 03/13/2019 Oral 40 mEq 40 mEq = 2 tabs, Oral, Once magnesium sulfate(magnesium sulfate) 100 mL 03/13/2019 03/13/2019 IV Piggyback 1 g 1 g = 100 mL, 100 mL/hr, IV Piggyback, Once bumetanide(Bumex) 2 mL 03/13/2019 03/15/2019 IV Push 0.5 mg 0.5 mg = 2 mL, IV Push, BID magnesium sulfate(magnesium sulfate) 50 mL 03/13/2019 03/13/2019 IV Piggyback 2 g 2 g = 50 mL, 25 mL/hr, IV Pi ggyback, Once magnesium sulfate(magnesium sulfate) 50 mL 03/14/2019 03/14/2019 IV Piggyback 2 g 2 g = 50 mL, 25 mL/hr, IV Pi ggyback, Once potassium phosphate(potassium phosphate) 10 mL 03/14/2019 03/14/2019 IV Piggyback 30 mmol 30 mmol = 10 mL, 55 mL/hr, I V Piggyback, Once magnesium oxide(magnesium oxide) 1 tabs 03/14/2019 03/16/2019 Dobhoff Tube 400 mg 400 mg = 1 tabs, Dobhoff Tub e, BID potassium phosphate-sodium p hosphate(Phospha 250 Neutral) 1 tabs 03/14/2019 03/16/2019 Dobho ff Tube 1 tabs, Dobhoff Tube, TID adenosine(adenosine) 4 mL 03/14/2019 03/14/2019 IV Push 12 mg 12 mg = 4 mL, IV Push, Once LORazepam(Ativan) 0.5 mL 03/14/2019 03/14/2019 IV Push 1 mg 1 mg = 0.5 mL, IV Push, Once Sodium Chloride 0.9% intrave nous solutio(vasopressin IV additive 20 units [0.04 unit/min] + NS, 100 mL) 100 mL 03/14/2019 03/16/2019 IV 12.12 mL/hr, IV bumetanide(Bumex) 2 mL 03/14/2019 03/15/2019 IV Push 0.5 mg 0.5 mg = 2 mL, IV Push, TID albumin human(albumin human 25% intravenous solution) 100 mL 03/14/2019 03/15/2019 IV Pi ggyback 25 g 25 g = 100 mL, 1 00 mL/hr, IV Piggyback, q6hr potassium phosphate(potassium phosphate) 6.67 mL 03/15/2019 03/15/2019 IV Piggyback 20 mmol 20 mmol = 6.67 mL, 52.22 mL/ hr, IV Piggyback, Once potassium chloride(potassium chloride 20 mEq oral tablet, extended release) 2 tabs 03/15/2019 03/15/2019 Oral 40 mEq 40 mEq = 2 tabs, Oral, Once HYDROmorphone(Dilaudid) 0.5 mL 03/15/2019 03/23/2019 IV Push 0.5 mg 0.5 mg = 0.5 mL, IV Push, q6hr, PRN: Pain Severe (7-10) bumetanide(Bumex) 0.5 mL 03/15/2019 03/18/2019 IV Push 0.125 mg 0.125 mg = 0.5 mL, IV Push, BID albumin human(albumin human 25% intravenous solution) 100 mL 03/15/2019 03/16/2019 IV Pi ggyback 25 g 25 g = 100 mL, 1 00 mL/hr, IV Piggyback, q6hr diphenhydrAMINE(Benadryl) 1 tabs 03/15/2019 03/15/2019 Oral 25 mg 25 mg = 1 tabs, Oral, Once, PRN: Anxiety diphenhydrAMINE(Benadryl) 0. 5 mL 03/15/2019 03/15/2019 IV Push 25 mg 25 mg = 0.5 mL, IV Push, Once, PRN: Anxiety potassium chloride(potassium chloride 20 mEq/100 mL intravenous solution) 100 mL 03/16/2019 9 IV Piggyback 20 mEq 20 mE q = 100 mL, 50 mL/hr, IV Piggyback, q2hr potassium phosphate(potassium phosphate) 10 mL 03/16/2019 03/16/2019 IV Piggyback 30 mmol 30 mmol = 10 mL, 65 mL/hr, I V Piggyback, Once magnesium sulfate(magnesium sulfate) 100 mL 03/16/2019 03/16/2019 IV Piggyback 1 g 1 g = 100 mL, 100 mL/hr, IV Piggyback, Once magnesium sulfate(magnesium sulfate) 50 mL 03/18/2019 03/18/2019 IV Piggyback 2 g 2 g = 50 mL, 25 mL/hr, IV Pi ggyback, Once bumetanide(Bumex) 0.5 tabs 03/18/2019 03/23/2019 Oral 0.25 mg 0.25 mg = 0.5 tabs, Oral, Daily potassium chloride(potassium chloride 20 mEq oral tablet, extended release) 1 tabs 03/19/2019 03/23/2019 Oral 20 mEq 20 mEq = 1 tabs, Oral, BID pantoprazole(pantoprazole) 1 tabs 03/20/2019 03/24/2019 Oral 40 mg 40 mg = 1 tabs, Oral, BID mirtazapine(Remeron) 1 tabs 03/20/2019 03/24/2019 Oral 15 mg 15 mg = 1 tabs, Oral, Bedtime (once a day) LORazepam(Ativan) 1 tabs 03/20/2019 03/20/2019 Oral 0.5 mg 0.5 mg = 1 tabs, Oral, Once magnesium sulfate(magnesium sulfate) 50 mL 03/21/2019 03/21/2019 IV Piggyback 2 g 2 g = 50 mL, 25 mL/hr, IV Pi ggyback, Once acetaminophen(Tylenol range dose) 1 tabs 03/21/2019 03/23/2019 Oral 325 mg 325 mg = 1 tabs, Oral, q4hr, PRN: Pain Mild (1-3) magnesium oxide(magnesium oxide) 1 tabs 03/22/2019 03/24/2019 Oral 400 mg 400 mg = 1 tabs, Oral, BID nicotine(nicotine 14 mg/24 h r transdermal film, extended release) 1 patches 03/23/2019 03/24/2019 TransDermal 1 patches, Trans Dermal, Daily miconazole topical(miconazol e 2% topical powder) 1 macario 03/24/2019 Topical 1 macario, Topical, BID, PRN: Rash, 0 Refill(s) pantoprazole(pantoprazole 40 mg oral delayed release tablet) 1 tabs 03/24/2019 Oral 4 0 mg 40 mg = 1 tabs, Oral, BID, 0 Refill(s) mirtazapine(Remeron 15 mg oral tablet) 1 tabs 03/24/2019 Oral 15 mg 15 mg = 1 tabs, Oral, Bedtime (once a day), 0 Refill(s) hydrOXYzine hydrochloride(hy drOXYzine hydrochloride 25 mg oral tablet) 1 tabs 03/24/2019 Oral 25 mg 25 mg = 1 tabs, Oral, q6hr, PRN: Pruritus/Itching, 0 Refill(s) nicotine(nicotine 14 mg/24 h r transdermal film, extended release) 1 patches 03/24/2019 TransDermal 1 patches, Trans Dermal, Daily, 0 Refill(s) oxyCODONE(oxyCODONE 5 mg oral tablet) 1 tabs 03/24/2019 Oral 5 mg 5 mg = 1 tabs, Oral, q24hr, PRN: Pain Severe (7-10), 0 Refill(s) ibuprofen(ibuprofen) 1 tabs 11/16/2019 11/16/2019 Oral 800 mg 800 mg = 1 tabs, Oral, Once ibuprofen(ibuprofen 800 mg oral tablet) 1 tabs 11/16/2019 11/23/2019 Oral 800 mg 800 mg = 1 tabs, Oral, q8hr, for 7 days, Take one tablet every 8 hours with food or milk, PRN: as needed for pain, 21 tabs, 0 Refill(s) morphine(morphine) 2 mL 12/25/2019 12/25/2019 IV Push 4 mg 4 mg = 2 mL, IV Push, Once ondansetron(Zofran) 2 mL 12/25/2019 12/25/2019 IV Push 4 mg 4 mg = 2 mL, IV Push, Once pantoprazole(Protonix 40 mg oral delayed release tablet) 1 tabs 12/25/2019 Oral 4 0 mg 40 mg = 1 tabs, Oral, Daily, 30 tabs, 0 Refill(s) ondansetron(ondansetron 4 mg oral tablet, disintegrating) 12/25/2019 See Instructions, 1 tabs Oral q6-8hrs prn nausea/vomiting, 12 tabs, 0 Refill(s) ondansetron(ondansetron) 2 m L 01/09/2020 01/09/2020 IV Push 4 mg 4 mg = 2 mL, IV Push, Once potassium chloride(potassium chloride 20 mEq/100 mL intravenous solution) 100 mL 01/09/2020 0 IV Piggyback 20 mEq 20 mE q = 100 mL, 50 mL/hr, IV Piggyback, Once potassium chloride(potassium chloride 20 mEq oral tablet, extended release) 2 tabs 01/09/2020 01/09/2020 Oral 40 mEq 40 mEq = 2 tabs, Oral, Once potassium chloride(potassium chloride 20 mEq/100 mL intravenous solution) 100 mL 01/09/2020 0 IV Piggyback 20 mEq 20 mE q = 100 mL, 50 mL/hr, IV Piggyback, Once ondansetron(Zofran) 2 mL 01/09/2020 01/09/2020 IV Push 4 mg 4 mg = 2 mL, IV Push, Once metoclopramide(Reglan) 2 mL 01/09/2020 01/10/2020 IV Push 10 mg 10 mg = 2 mL, IV Push, q6hr, PRN: Nausea ondansetron(Zofran) 2 mL 01/09/2020 01/10/2020 IV Push 4 mg 4 mg = 2 mL, IV Push, q6hr, PRN: Nausea ketorolac(Toradol) 1 mL 01/09/2020 01/09/2020 IV Push 15 mg 15 mg = 1 mL, IV Push, Once, PRN: Pain Moderate (4-6) nicotine(nicotine 2 mg oral transmucosal g um) 1 Each 01/09/2020 01/10/2020 Oral 2 mg 2 mg = 1 Each, Oral, q1hr, P RN: Other (See Comment) calcium carbonate(Tums) 1 ta bs 01/09/2020 01/10/2020 Oral 500 mg 500 mg = 1 tabs, Oral, q4hr, PRN: GERD/Heartburn nicotine(Habitrol 21 mg/24 h r transdermal film, extended release) 1 patches 01/09/2020 01/10/2020 TransDermal 1 patches, Trans Dermal, Daily potassium chloride(potassium chloride 20 mEq/100 mL intravenous solution) 100 mL 01/09/2020 0 IV Piggyback 20 mEq 20 mE q = 100 mL, 50 mL/hr, IV Piggyback, q2hr folic acid(folic acid) 1 tab s 01/09/2020 01/09/2020 Oral 1 mg 1 mg = 1 tabs, Oral, Daily LORazepam(Ativan) 1 mL 01/09/2020 01/09/2020 IV Push 2 mg 2 mg = 1 mL, IV Push, q5min, PRN: Seizure thiamine(thiamine) 1 tabs 01/09/2020 01/09/2020 Oral 100 mg 100 mg = 1 tabs, Oral, Daily folic acid(folic acid) 1 tab s 01/09/2020 01/10/2020 Oral 1 mg 1 mg = 1 tabs, Oral, Daily LORazepam(Ativan) 1 mL 01/09/2020 01/10/2020 IV Push 2 mg 2 mg = 1 mL, IV Push, q5min, PRN: Seizure haloperidol(Haldol) 0.1 mL 01/09/2020 01/10/2020 IV Push 0.5 mg 0.5 mg = 0.1 mL, IV Push, q2hr, PRN: Other (See Comment) thiamine(thiamine) 1 tabs 01/09/2020 01/10/2020 Oral 100 mg 100 mg = 1 tabs, Oral, Daily ibuprofen(ibuprofen) 1 tabs 01/09/2020 01/10/2020 Oral 600 mg 600 mg = 1 tabs, Oral, q6hr, PRN: Pain potassium chloride(potassium chloride 20 mEq oral tablet, extended release) 2 tabs 01/10/2020 01/10/2020 Oral 40 mEq 40 mEq = 2 tabs, Oral, Daily amLODIPine(amLODIPine) 1 tab s 01/10/2020 01/10/2020 Oral 5 mg 5 mg = 1 tabs, Oral, Daily thiamine(thiamine 100 mg oral tablet) 1 tabs 01/10/2020 01/10/2020 Oral 100 mg 100 mg = 1 tabs, Oral, Daily, 0 Refill(s) folic acid(folic acid 1 mg oral tablet) 1 tabs 01/10/2020 01/10/2020 Oral 1 mg 1 mg = 1 tabs, Oral, Daily, 0 Refill(s) amLODIPine(amLODIPine 5 mg oral tablet) 1 tabs 01/10/2020 Oral 5 mg 5 mg = 1 tabs, Oral, Daily, 0 Refill(s) cefepime(cefepime) 10 mL 01/30/2020 01/30/2020 IV Push 1 g 1 g = 10 mL, IV Push, Once potassium chloride(potassium chloride 20 mEq oral tablet, extended release) 2 tabs 01/30/2020 01/30/2020 Oral 40 mEq 40 mEq = 2 tabs, Oral, Once vancomycin(vancomycin + Sodi um Chloride 0.9% intravenous solution 250 mL) 20 mL 01/30/2020 01/30/2020 IV Piggyback 1,000 mg 1,000 mg = 20 mL, 270 mL/hr, IV Piggyback, Once nalOXone(Narcan) 1 mL 01/30/2020 02/02/2020 IV Push 0.4 mg 0.4 mg = 1 mL, IV Push, Daily, PRN: Opiate Reversal ondansetron(Zofran) 2 mL 01/30/2020 02/02/2020 IV Push 4 mg 4 mg = 2 mL, IV Push, q6hr, PRN: Nausea Al hydroxide/Mg hydroxide/si methicone(Maalox Advanced Maximum Strength oral suspension) 30 mL 01/30/20 20 02/02/2020 Oral 30 mL, Oral, q6hr, PRN: GERD/Heartburn polyethylene glycol 3350(MiraLax) 1 packets 01/30/2020 02/02/2020 Oral 17 g 17 g = 1 packets, Oral, Daily, PRN: Constipation enoxaparin(Lovenox) 0.4 mL 01/30/2020 02/02/2020 SubCutaneous 40 mg 40 mg = 0.4 mL, SubCutaneous, Daily calcium carbonate(Tums) 1 ta bs 01/30/2020 02/02/2020 Oral 500 mg 500 mg = 1 tabs, Oral, q4hr, PRN: GERD/Heartburn nicotine(Habitrol 14 mg/24 h r transdermal film, extended release) 1 patches 01/30/2020 02/02/2020 TransDermal 1 patches, Trans Dermal, Daily diphenhydrAMINE(Benadryl) 1 tabs 01/30/2020 02/02/2020 Oral 25 mg 25 mg = 1 tabs, Oral, q6hr, PRN: Pruritus/Itching senna(Senokot) 1 tabs 01/30/2020 02/02/2020 Oral 8.6 mg 8.6 mg = 1 tabs, Oral, Daily, PRN: Constipation Dextrose 10% in Water(Dextro se 10% in Water 250 mL) 250 mL 01/30/2020 02/02/2020 IV 50 mL/hr, IV acetaminophen(acetaminophen) 2 tabs 01/30/2020 02/02/2020 Oral 650 mg 650 mg = 2 tabs, Oral, q4hr, PRN: Other (See Comment) glucagon(glucagon) 1 mL 01/30/2020 02/02/2020 IntraMuscular 1 mg 1 mg = 1 mL, IntraMuscular, As Indicated, PRN: Hypoglycemia/Low Blood Sugar glucose(glucose) 01/30/2020 02/02/2020 Oral 15 g 15 g, Oral, q1hr, PRN: Hypoglycemia/Low Blood Sugar Dextrose 50% in Water(Dextro se 50% in Water Injection) 25 mL 01/30/2020 02/02/2020 IV Pus h 12.5 g 12.5 g = 25 mL, IV Push, q15min, PRN: Hypoglycemia/Low Blood Sugar ondansetron(Zofran) 1 tabs 01/30/2020 02/02/2020 Oral 4 mg 4 mg = 1 tabs, Oral, q6hr, PRN: Nausea folic acid(folic acid) 1 tab s 01/30/2020 02/02/2020 Oral 1 mg 1 mg = 1 tabs, Oral, Daily LORazepam(Ativan) 0.5 mL 01/30/2020 02/02/2020 IV Push 1 mg 1 mg = 0.5 mL, IV Push, q5min, PRN: Seizure promethazine(Phenergan) 1 mL 01/30/2020 02/02/2020 IntraMuscular 25 mg 25 mg = 1 mL, IntraMuscular, q4hr, PRN: Nausea haloperidol(Haldol) 0.1 mL 01/30/2020 02/02/2020 IV Push 0.5 mg 0.5 mg = 0.1 mL, IV Push, q2hr, PRN: Other (See Comment) thiamine(thiamine) 1 mL 01/30/2020 02/01/2020 IV Push 100 mg 100 mg = 1 mL, IV Push, Daily pantoprazole(pantoprazole) 1 tabs 01/30/2020 02/02/2020 Oral 40 mg 40 mg = 1 tabs, Oral, Daily ondansetron(Zofran) 1 tabs 01/30/2020 02/02/2020 Oral 4 mg 4 mg = 1 tabs, Oral, q6hr potassium chloride(potassium chloride 20 mEq/100 mL intravenous solution) 100 mL 01/31/2020 0 IV Piggyback 20 mEq 20 mE q = 100 mL, 50 mL/hr, IV Piggyback, q2hr ceFAZolin(ceFAZolin) 10 mL 01/31/2020 01/31/2020 IV Push 1 g 1 g = 10 mL, IV Push, q8hr traMADol(Ultram) 1 tabs 01/31/2020 02/02/2020 Oral 50 mg 50 mg = 1 tabs, Oral, q6hr, PRN: Pain Moderate (4-6) doxycycline(doxycycline) 10 mL 01/31/2020 01/31/2020 IV Piggyback 100 mg 100 mg = 10 mL, 110 mL/hr, I V Piggyback, BID calcium carbonate(Tums) 2 ta bs 01/31/2020 02/02/2020 Oral 1,000 mg 1,000 mg = 2 tabs, Oral, TID clindamycin(clindamycin) 50 mL 01/31/2020 02/02/2020 IV Piggyback 600 mg 600 mg = 50 mL, 100 mL/hr, I V Piggyback, q8hr thiamine(thiamine) 1 tabs 02/01/2020 02/02/2020 Oral 100 mg 100 mg = 1 tabs, Oral, Daily sucralfate(sucralfate) 1 tab s 02/01/2020 02/02/2020 Oral 1 g 1 g = 1 tabs, Oral, QID Sodium Chloride 0.9% intrave nous solutio(Sodium Chloride 0.9% Bolus) 500 mL 02/02/2020 02/02/2020 Bolus IV 500 mL, Bolus IV , Once potassium chloride(potassium chloride 20 mEq oral tablet, extended release) 2 tabs 02/02/2020 02/02/2020 Oral 40 mEq 40 mEq = 2 tabs, Oral, Once Sodium Chloride 0.9% intrave nous solutio(Sodium Chloride 0.9% Bolus) 500 mL 02/02/2020 02/02/2020 Bolus IV 500 mL, Bolus IV , Once sucralfate(sucralfate 1 g oral tablet) 1 tabs 02/02/2020 02/10/2020 Oral 1 g 1 g = 1 tabs, Oral, QID, 120 tabs, 0 Refill(s) clindamycin(clindamycin 300 mg oral capsul e) 1 caps 02/02/2020 02/07/2020 Oral 300 mg 300 mg = 1 caps, Oral, q8hr, for 5 days, 15 caps, 0 Refill(s) traMADol(Ultram 50 mg oral tablet) 1 tabs 02/02/2020 02/05/2020 Oral 50 mg 50 mg = 1 tabs, Oral, q6hr, PRN: Pain Moderate (4-6), 10 tabs, 0 Refill(s) pantoprazole(pantoprazole 40 mg oral delayed release tablet) 1 tabs 02/02/2020 02/10/2020 Oral 40 mg 40 mg = 1 tabs, Oral, Daily, 30 tabs, 0 Refill(s) ondansetron(Zofran) 2 mL 02/10/2020 02/10/2020 IV Push 4 mg 4 mg = 2 mL, IV Push, q30min, PRN: Nausea cefTRIAXone(cefTRIAXone) 02/10/2020 02/10/2020 IV Push 1 g 1 g, IV Push, Once ondansetron(Zofran) 1 tabs 02/10/2020 02/10/2020 Oral 4 mg 4 mg = 1 tabs, Oral, q6hr, PRN: Nausea glucagon(glucagon) 1 mL 02/10/2020 02/19/2020 IntraMuscular 1 mg 1 mg = 1 mL, IntraMuscular, As Indicated, PRN: Hypoglycemia/Low Blood Sugar ketorolac(Toradol) 1 mL 02/10/2020 02/11/2020 IV Push 15 mg 15 mg = 1 mL, IV Push, q6hr, PRN: Pain Mild (1-3) ocular lubricant(ocular lubr icant ophthalmic solution) 1 drops 02/10/2020 02/19/2020 Eye- Both 1 drops, Eye-Bot h, q1hr, PRN: Dry Eyes polyethylene glycol 3350(MiraLax) 1 packets 02/10/2020 02/19/2020 Oral 17 g 17 g = 1 packets, Oral, Daily, PRN: Constipation glucose(glucose) 02/10/2020 02/19/2020 Oral 15 g 15 g, Oral, q1hr, PRN: Hypoglycemia/Low Blood Sugar senna(Senokot) 1 tabs 02/10/2020 02/19/2020 Oral 8.6 mg 8.6 mg = 1 tabs, Oral, Daily, PRN: Constipation Dextrose 5% with 0.45% NaCl and KCl 20 m(Dextrose 5% with 0.45% NaCl and KCl 20 mEq/L 1,000 mL) 1,000 mL 020 02/11/2020 IV 90 mL/hr, IV Dextrose 50% in Water(Dextro se 50% in Water Injection) 25 mL 02/10/2020 02/19/2020 IV Pus h 12.5 g 12.5 g = 25 mL, IV Push, q15min, PRN: Hypoglycemia/Low Blood Sugar Dextrose 10% in Water(Dextro se 10% in Water 250 mL) 250 mL 02/10/2020 02/19/2020 IV 50 mL/hr, IV acetaminophen(acetaminophen) 2 tabs 02/10/2020 02/19/2020 Oral 650 mg 650 mg = 2 tabs, Oral, q4hr, PRN: Pain Mild (1-3) ondansetron(Zofran) 1 tabs 02/10/2020 02/14/2020 Oral 4 mg 4 mg = 1 tabs, Oral, q6hr, PRN: Nausea folic acid(folic acid) 1 tab s 02/10/2020 02/14/2020 Oral 1 mg 1 mg = 1 tabs, Oral, Daily LORazepam(Ativan) 0.5 mL 02/10/2020 02/14/2020 IntraMuscular 1 mg 1 mg = 0.5 mL, IntraMuscular, q5min, PRN: Seizure promethazine(Phenergan) 1 mL 02/10/2020 02/14/2020 IntraMuscular 25 mg 25 mg = 1 mL, IntraMuscular, q4hr, PRN: Nausea thiamine(thiamine) 1 tabs 02/10/2020 02/14/2020 Oral 100 mg 100 mg = 1 tabs, Oral, Daily ipratropium-albuterol(DuoNeb 0.5 mg-2.5 mg/3 mL inhalation solution) 3 mL 02/11/2020 02/19/2020 NE B 3 mL, NEB, q2hr (scheduled), PRN: Bronchospasms magnesium sulfate(magnesium sulfate) 50 mL 02/11/2020 02/11/2020 IV Piggyback 2 g 2 g = 50 mL, 25 mL/hr, IV Pi ggyback, Once potassium chloride(potassium chloride 20 mEq oral tablet, extended release) 2 tabs 02/11/2020 02/11/2020 Oral 40 mEq 40 mEq = 2 tabs, Oral, BIDWM enoxaparin(enoxaparin) 0.3 m L 02/11/2020 02/19/2020 SubCutaneous 30 mg 30 mg = 0.3 mL, SubCutaneous , q24hr metroNIDAZOLE(Flagyl) 100 mL 02/11/2020 02/12/2020 IV Piggyback 500 mg 500 mg = 100 mL, 100 mL/hr, IV Piggyback, q12hr potassium bicarbonate(potassium bicarbonat e) 2 tabs 02/11/2020 02/12/2020 Oral 40 mEq 40 mEq = 2 tabs, Oral, q4hr potassium chloride(potassium chloride 20 mEq/100 mL intravenous solution) 100 mL 02/11/2020 0 IV Piggyback 20 mEq 20 mE q = 100 mL, 50 mL/hr, IV Piggyback, Once Lactated Ringers Injection(L actated Ringers Injection 1,000 mL) 1,000 mL 02/11/2020 02/13/2020 IV 125 mL/hr, IV ondansetron(ondansetron) 2 m L 02/11/2020 02/19/2020 IV Push 4 mg 4 mg = 2 mL, IV Push, q6hr, PRN: Nausea or Vomiting morphine(morphine) 1 mL 02/11/2020 02/14/2020 IV Push 2 mg 2 mg = 1 mL, IV Push, q2hr, PRN: Pain Severe (7-10) potassium chloride(potassium chloride 20 mEq/100 mL intravenous solution) 100 mL 02/11/2020 0 IV Piggyback 20 mEq 20 mE q = 100 mL, 50 mL/hr, IV Piggyback, q2hr vancomycin(vancomycin) 1 cap s 02/12/2020 02/19/2020 Oral 125 mg 125 mg = 1 caps, Oral, QID pantoprazole(pantoprazole) 1 tabs 02/13/2020 02/19/2020 Oral 40 mg 40 mg = 1 tabs, Oral, Daily doxycycline(doxycycline) 1 t abs 02/13/2020 02/18/2020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 unspecified RAYA OMER, YESSICA Mohan 03/30/2019 RAYA OMER, YESSICA Mohan N17.8 Other acute kidney failure RAYA OMER, YESSICA Mohan 03/30/2019 RAYA OMER, YESSICA Mohan R60.1 Generalized edema RAYA OMER, YESSICA Mohan 03/30/2019 RAYA OMER, YESSICA Mohan A40.3 Sepsis due to Streptococcus pneumoniae REDD OMER, CHANTAL 03/30/2019 RAYA OMER, YESSICA Mohan D50.0 Iron deficiency anemia secondary to blood loss (chronic) REDD OMER, CHANTAL 03/30/2019 RAYA OMER, YESSICA Mohan E83.3 9 Other disorders of phosphorus metabolism REDD OMER, CHANTAL 03/30/2019 RAYA OMER, YESSICA Mohan E83.4 2 Hypomagnesemia REDD OMER, CHANTAL 03/30/2019 RAYA OMER, YESSICA Mohan E87.3 Alkalosis REDD OMER, CHANTAL 03/30/2019 RAYA OMER, YESSICA Mohan E87.6 Hypokalemia REDD OMER, CHANTAL 03/30/2019 RAYA OMER, YESSICA Mohan I95.8 9 Other hypotension REDD MOER, CHANTAL 03/30/2019 RAAY OMER, YESSICA Mohan J96.0 1 Acute respiratory failure with hypoxia REDD OMER, CHANTAL 03/30/2019 RAYA OMER, YESSICA Mohan K92.2 Gastrointestinal hemorrhage, unspecified REDD OMER, CHANTAL 03/30/2019 RAYA OMER, YESSICA Mohan N17.8 Other acute kidney failure REDD OMER, CHANTAL 03/30/2019 RAYA OMER, YESSICA Mohan R60.1 Generalized edema REDD OMER, CHANTAL 03/30/2019 Pili OMER, Bharat D62 Acute posthemorrhagic anemia Pili OMER, Bharat 03/30/2019 Pili OMER, Bharat J18.9 Pneumonia, unspecified organism Pili OMER, Bharat 03/30/2019 Pili OMER, Bharat J44.9 Chronic obstructive pulmonary disease, unspecified Pili OMER, Bharat 03/30/2019 Pili OMER, Bharat K20.9 Esophagitis, unspecified Pili OMER, Bharat 03/30/2019 Pili OMER, Bharat K44.9 Diaphragmatic hernia without obstruction or gangrene Pili OMER, Bharat 03/30/2019 Pili OMER, Bharat K92.2 Gastrointestinal hemorrhage, unspecified Pili OMER, Bharat 03/30/2019 Pili OMER, Bharat J18.9 Pneumonia, unspecified organism Gordon, R Jose 03/30/2019 Pili OMER, Bharat J44.9 Chronic obstructive pulmonary disease, unspecified Gordon, R Jose 03/30/2019 Pili OMER, Bharat K20.9 Esophagitis, unspecified Godron, R Jose 03/30/2019 Pili OMER, Bharat K44.9 Diaphragmatic hernia without obstruction or gangrene Gordon, R Jose 10/05/2019 Deng,, Magdiel Final J02.9 Acute pharyngitis, unspecified 10/05/2019 Deng,, Magdiel Final K92.0 Hematemesis 10/05/2019 Deng,, Magdiel Reason R42 Dizziness and giddiness 10/05/2019 Deng,Magdiel Reason R51 Headache 11/21/2019 Chau,Calros A Final F17.210 Nicotine dependence, cigarettes, uncomplicated 11/21/2019 Chau,Carlos A Final M41 .9 Scoliosis, unspecified 11/21/2019 Chau,, Carlos A Reason S76.012A Strain of muscle, fascia and tendon of left hip, initi al encounter 11/21/2019 Chau,Carlos A Final X58.XXXA Exposure to other specified factors, initial encounter 12/27/2019 Deng,Magdiel Final F17.21 0 Nicotine dependence, cigarettes, uncomplicated 12/27/2019 Deng,Magdiel Final K29.00 Acute gastritis without bleeding 12/27/2019 Deng,Magdiel Final K74.60 Unspecified cirrhosis of liver 12/27/2019 Deng,Magdiel Final M41.9 Scoliosis, unspecified 12/27/2019 Deng,Magdiel Final Z98.89 0 Other specified postprocedural states 01/09/2020 Sanders Jennifer Admitting R11.10 01/12/2020 Tommy,Sia Final E83.119 Hemochromatosis, unspecified 01/12/2020 Tommy,Sia Final E87.2 Acidosis 01/12/2020 Tommy,Sia Final E87.6 Hypokalemia 01/12/2020 Tommy,Sia Final F10.10 Alcohol abuse, uncomplicated 01/12/2020 Tommy, Sia Final F17.210 Nicotine dependence, cigarettes, uncomplicated 01/12/2020 Lollyerman,, Sia Final J44.9 Chronic obstructive pulmonary disease, unspecified 01/12/2020 Lollyerman,, Sia Final K74.60 Unspecified cirrhosis of liver 01/12/2020 Lollyerman,, Sia Final M41.9 Scoliosis, unspecified 01/12/2020 Lollyerman,, Sia Final R00.0 Tachycardia, unspecified 01/12/2020 Lollyerman,, Sia Reason R11.2 Nausea with vomiting, unspecified 01/12/2020 Lollyerman,, Sia Final Z79.891 senior living (current) use of opiate analgesic 01/12/2020 Tommy,, Sia Final 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 42 Hypomagnesemia 02/06/2020 Gilbert,, Linda Final E87. 1 Hypo-osmolality and hyponatremia 02/06/2020 Gilbert,, Linda Final E87. 2 Acidosis 02/06/2020 Gilbert,, Linda Final E87. 6 Hypokalemia 02/06/2020 Gilbert,, Linda Final I10 Essential (primary) hypertension 02/06/2020 Gilbert,, Linda Final J44. 9 Chronic obstructive pulmonary disease, unspecified 02/06/2020 Gilbert,, Linda Final K29. 20 Alcoholic gastritis without bleeding 02/06/2020 Gilbert,, Linda Final K44. 9 Diaphragmatic hernia without obstruction or gangrene 02/06/2020 Gilbert,, Linda Final K76. 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 70 Gastritis, unspecified, without bleeding 02/10/2020 Kennedy Patrick Admitting E87.6 02/22/2020 Brent,ElviraSree Final A04.72 Enterocolitis due to Clostridium diffici le, not specified as recurrent 02/22/2020 Kennedy Patrick Admitting A41.9 Sepsis, unspecified organism 02/22/2020 Brent,Sree Final D50 .9 Iron deficiency anemia, unspecified 02/22/2020 Brent,, Sree Final E43 Unspecified severe protein-calorie malnutrition 02/22/2020 Brent,Sree Final E87 .6 Hypokalemia 02/22/2020 Brent,, Sree Final F10.129 Alcohol abuse with intoxication, unspecified 02/22/2020 Brent,Sree Final I10 Essential (primary) hypertension 02/22/2020 Brent,Sree Final J44 .9 Chronic obstructive pulmonary disease, unspecified 02/22/2020 Brent,Sree Final L03.115 Cellulitis of right lower limb 02/22/2020 Bernt,Sree Final L89.513 Pressure ulcer of right ankle, stage 3 02/22/2020 Brent,Sree Final R65.21 Severe sepsis with septic shock 02/22/2020 Brent,Sree Final A41 .9 Sepsis, unspecified organism 02/24/2020 Ponce Scott Admitting E87.6 03/03/2020 Hermann Dominguez MD R1 F D72.829 ELEVATED WHITE BLOOD CELL COUNT, UNSPECIFIED 03/03/2020 Hermann Dominguez MD R1 F E43 UNSPECIFIED SEVERE PROTEIN-CALORIE MALNUTRITION 03/03/2020 Hermann Dominguez MD R1 F E83.42 HYPOMAGNESEMIA 03/03/2020 Hermann Dominguez MD R1 F E87.6 HYPOKALEMIA 03/03/2020 Hermann Dominguez MD R1 F F10.239 ALCOHOL DEPENDENCE WITH WITHDRAWAL, UNSPECIFIED 03/03/2020 Hermann Dominguez MD F F17.210 NICOTINE DEPENDENCE, CIGARETTES, UNCOMPLICATED 03/03/2020 Hermann Dominguez MD F I31.3 PERICARDIAL EFFUSION (NONINFLAMMATORY) 03/03/2020 Hermann Dominguez MD A R05 COUGH 03/03/2020 Hermann Dominguez MD F Z20.828 CONTACT W AND EXPOSURE TO OTH VIRAL COMMUNICABLE D 03/05/2020 [facility],, [place] Final A04.72 Enterocolitis due to Clostridium diffici sofie, not specified as recurrent 03/05/2020 [facility],, [place] Admitting A41.9 Sepsis, unspecified organism 03/05/2020 [facility],, [place] Final E43 Unspecified severe protein-calorie malnutrition 03/05/2020 [facility],, [place] Final E61.1 Iron deficiency 03/05/2020 [facility],, [place] Final E83.42 Hypomagnesemia 03/05/2020 [facility],, [place] Final E87.2 Acidosis 03/05/2020 [facility],, [place] Final E87.3 Alkalosis 03/05/2020 [facility],, [place] Final E87.6 Hypokalemia 03/05/2020 [facility],, [place] Final F10.239 Alcohol dependence with withdrawal, unspecified 03/05/2020 [facility],, [place] Final F41.9 Anxiety disorder, unspecified 03/05/2020 [facility],, [place] Final I10 Essential (primary) hypertension 03/05/2020 [facility],, [place] Final I44.0 Atrioventricular block, first degree 03/05/2020 [facility],, [place] Final K74.60 Unspecified cirrhosis of liver 03/05/2020 [facility],, [place] Final L08.9 Local infection of the skin and subcutaneous tissue, u nspecified 03/05/2020 [facility],, [place] Final M41.9 Scoliosis, unspecified 03/05/2020 [facility],, [place] Final Z59.0 Homelessness 03/05/2020 [facility],, [place] Final Z63.4 Disappearance and of family member 03/05/2020 [facility],, [place] Final Z68.21 Body mass index (BMI) 21.0-21.9, adult 03/05/2020 [facility],, [place] Final A41.9 Sepsis, unspecified organism Procedures Code Description Performed By Per formed On [id number] EX CISION OF ESOPHAGUS, ENDO, DIAGN David Galeana 11/11/2018 [id number] DE TOXIFICATION SERVICES FOR SUBSTANCE ABUSE TREATM David Galeana 11/11/2018 [id number] DE TOXIFICATION SERVICES FOR SUBSTANCE ABUSE TREATM Juan Carlos Hernandez 02/07/2019 [id number] EX CISION OF LOWER ESOPHAGUS, ENDO, DIAGN Cora OMER, Carie Mock 02/16/2019 [id number] In sertion of Endotracheal Airway into Trachea, Via Natural or Artificial Op 03/07/2019 [id number] Uppe r gastrointestinal endoscopy including esophagus, stomach, and either the duodenum and/or jejunu Bharat Alejandre MD 03/10/2019 [id number] Uppe r GI Endoscopy Esophagogastroduodenoscopy, flexible, transoral; with directed submucosal injecti Pili OMER, Bharat 03/17/2019 79917 Subs equent hospital care per day for the evaluation and management of a patient which requires at Bharat Hernandez MD 03/30/2019 66314 Subs [facility] care, per day, for the evaluation and management of a patient, which requires at Bharat Alejandre MD 03/30/2019 67630 Init ial inpatient consultation for a new or established patient, which requires these three louis comp Bharat Alejandre MD 03/30/2019 [id number] [facility] for the evaluation and management of a patient which requires at Jaime Arias 03/30/2019 00105 Init ia hospital care, per day, for the evaluation and management of a patient, which requires these YESSICA DOS SANTOS MD 03/30/2019 89150 Subs [facility] care, per day, for the evaluation and management of a patient, which requires at YESSICA DOS SANTOS MD 03/30/2019 14957 [facility] hospital care, per day, for the evaluation and management of a patient, which requires at YESSICA DOS SANTOS MD 03/30/2019 22591 Subs [facility] care, per day, for the evaluation and management of a patient, which requires at YESSICA DOS SANTOS MD 03/30/2019 96484 [facility] hospital care, per day, for the evaluation and management of a patient, which requires at CHANTAL RAINEY MD 03/30/2019 26132 Uppe r GI Endoscopy Esophagogastroduodenoscopy, flexible, transoral; with directed submucosal injecti Bharat Alejandre MD 04/27/2019 52187 Uppe r gastrointestinal endoscopy including esophagus, stomach, and either the duodenum and/or jejunu Bharat Alejandre MD 04/27/2019 22301 [facility] care per day for the evaluation and management of a patient which requires at Jaime Arias 04/27/2019 37451 [facility] care, per day, for the evaluation and management of a patient, which requires at Bharat Alejandre MD 04/27/2019 35815 Init ia inpatient consultation for a new or established patient, which requires these three louis comp Bharat Alejandre MD 04/27/2019 99625 [facility] hospital care, per day, for the evaluation and management of a patient, which requires these YESSICA DOS SANTOS MD 05/17/2019 42893 [facility] care, per day, for the evaluation and management of a patient, which requires at CHANTAL RAINEY MD 05/17/2019 01742 [facility] care, per day, for the evaluation and management of a patient, which requires at YESSICA DOS SANTOS MD 05/17/2019 [id number] DE TOXIFICATION SERVICES FOR SUBSTANCE ABUSE Hermann Choudhary MD 03/03/2020 Results Test Result Range URINALYSIS, ROUTINE - 07/22/18 00:00 UA LEUKOCYTE ESTERASE DIPSTICK TRACE NEGATIVE UA NITRITE DIPSTICK NEGATIVE NEGATIVE UA PROTEIN DIPSTICK NEGATIVE NEGATIVE UA GLUCOSE DIPSTICK NEGATIVE NEGATIVE UA KETONE DIPSTICK NEGATIVE NEGATIVE UA UROBILINOGEN DIPSTICK NORMAL [place] L UA BILIRUBIN DIPSTICK NEGATIVE NEGATIVE UA BLOOD DIPSTICK NEGATIVE NEGATIVE UA SPECIFIC GRAVITY 1.010 1.015-1.02 5 UR PH 7.5 5.0-7.0 UA MICROSCOPIC - 07/22/18 00:00 UA BACTERIA NEGATIVE NEGATIVE UA EPITHELIAL CELLS 1+ epi/hpf 0 - 1+ UA HYALINE CAST 1-2 cast/lpf 0 - 1 UA RBC 0-3 rbc/hpf 0 - 3 UA WBC 2-5 wbc/hpf 0 - 5 UR DRUGS OF ABUSE SCREEN - 07/22/18 00:0 0 UR AMPHETAMINES SCREEN NEG (<1000 ng/mL) NEGATIVE UR BARBITURATE SCREEN NEG (< 200 ng/mL) NEGATIVE DRUGS OF ABUSE SCREEN COMMENT UR OPIATES SCREEN NEG (< 300 ng/mL) NE GATIVE UR PHENCYCLIDINE (PCP) SCREEN NEG (< 25 ng/mL) NEGATIVE UR CANNABINOIDS (THC) SCREEN NEG (< 50 ng/mL) NEGATIVE UR COCAINE METABOLITE SCREEN NEG (< 300 ng/mL) NEGATIVE UR METHADONE SCREEN NEG (< 300 ng/mL) NEGATIVE UR BENZODIAZEPINE SCREEN NEG (< 200 ng/mL) NEGATIVE CHEM/HEM PROFILE-BEDSIDE - 07/22/18 10:4 0 POTASSIUM 2.1 mmol/L 3.5-5.3 METHOD Bedside ANION GAP 21 mmol/L 10-20 METHOD Bedside GLUCOSE 133 mg/dL 70-99 BLOOD UREA NITROGEN < 3 mg/dL 7-20 CREATININE 0.9 mg/dL 0.6-1.0 HEMOGLOBIN 16.3 gm/dL 12.0-16.0 HEMATOCRIT 48.0 % 37.0-47.0 SODIUM 129 mmol/L 135-148 CHLORIDE 83 mmol/L 98-110 CARBON DIOXIDE 28 mmol/L 21-32 CALCIUM IONIZED 4.2 mg/dL 4.5-5.3 CBC W/DIFF - 07/22/18 13:47 BASOPHIL # 0.0 k/cumm 0.0-0.2 BASOPHIL % 0.4 % 0-1 EOSINOPHIL # 0.1 k/cumm 0.1-0.5 EOSINOPHIL % 0.8 % 2-4 GRANULOCYTE # 4.9 k/cumm 2.0-9.0 GRANULOCYTE % 66.1 % 50-75 LYMPHOCYTE # 1.5 k/cumm 1.0-4.0 LYMPHOCYTE % 20.7 % 20-30 MEAN CELL HGB 36.6 pg 27.0-33.0 MEAN CELL HGB CONCENTRATION 37.0 g/dL 32 .0-37.0 MEAN CELL VOLUME 98.8 fl 80.0-100.0 MONOCYTE # 0.9 k/cumm 0.1-1.0 MONOCYTE % 11.6 % 4-6 MEAN PLATELET VOLUME 10.4 fl 8.5-10.9 RED BLOOD CELL 4.10 m/cumm 4.00-6.00 RED CELL DISTRIBUTION WIDTH 14.2 % 11 .0-15.6 WHITE BLOOD CELL 7.4 k/cumm 5.0-10.0 HEMOGLOBIN 15.0 gm/dL 12.0-16.0 HEMATOCRIT 40.5 % 37.0-47.0 NRBC % 0.0 /100 WBC 0.0-0.0 PLATELET COUNT 167 k/cumm 150-400 IMMATURE GRANULOCYTE % 0.4 % 0.0-0.6 IMMATURE GRANULOCYTE # 0.03 k/cumm 0.00- 0.09 HEPATIC FUNCTION PANEL - 07/22/18 13:47 BILI UNCONJUGATED 1.9 mg/dL 0.0-0.7 AST/SGOT 70 Units/L 10-37 ALT/SGPT 48 Units/L < 66 TOTAL PROTEIN 6.0 gm/dL 6.4-8.2 ALBUMIN 2.8 gm/dL 3.4-5.0 BILI TOTAL 2.8 mg/dL 0.0-1.0 ALKALINE PHOSPHATASE TOTAL 101 IU/L 45- 117 BILI CONJUGATED 0.9 mg/dL 0.0-0.3 MAGNESIUM - 07/22/18 13:47 MAGNESIUM 1.9 mg/dL 1.8-2.4 METABOLIC PANEL, BASIC - 07/22/18 13:47 POTASSIUM 2.4 mmol/L 3.5-5.3 EST GFR (MDRD) 42 mL/min > 59 ANION GAP 16 mmol/L 5-15 EST CrCl (CG) 39 mL/min > 59 GLUCOSE 163 mg/dL 70-99 CALCIUM 8.2 mg/dL 8.5-10.1 BLOOD UREA NITROGEN 4 mg/dL 7-20 CREATININE 1.3 mg/dL 0.6-1.0 SODIUM 135 mmol/L 135-148 CHLORIDE 91 mmol/L 98-110 CARBON DIOXIDE 28 mmol/L 21-32 OSMOLALITY,SERUM/PLASMA - 07/22/18 13:47 OSMOLALITY,SERUM/PLASMA 274 mOsm/kg 282- 304 TSH WITH REFLEX TO FT4 - 07/22/18 13:47 THYROID STIM HORMONE (TSH) 1.46 uIU/mL 0 .34-4.82 UR SODIUM - 07/22/18 14:11 UR SODIUM COMMENT RANDOM UR SODIUM LEVEL 17 mmol/L 20-40 UR OSMOLALITY RANDOM - 07/22/18 14:11 UR OSMOLALITY RANDOM 105 mOsm/kg 300-100 0 METABOLIC PANEL, BASIC - 07/22/18 16:52 POTASSIUM 2.4 mmol/L 3.5-5.3 EST GFR (MDRD) 51 mL/min > 59 ANION GAP 12 mmol/L 5-15 EST CrCl (CG) 46 mL/min > 59 GLUCOSE 85 mg/dL 70-99 CALCIUM 7.9 mg/dL 8.5-10.1 BLOOD UREA NITROGEN 4 mg/dL 7-20 CREATININE 1.1 mg/dL 0.6-1.0 SODIUM 135 mmol/L 135-148 CHLORIDE 95 mmol/L 98-110 CARBON DIOXIDE 28 mmol/L METABOLIC PANEL, BASIC - 07/22/18 21:11 POTASSIUM 2.7 mmol/L 3.5-5.3 EST GFR (MDRD) 51 mL/min > 59 ANION GAP 10 mmol/L 5-15 EST CrCl (CG) 46 mL/min > 59 GLUCOSE 96 mg/dL 70-99 CALCIUM 7.6 mg/dL 8.5-10.1 BLOOD UREA NITROGEN 4 mg/dL 7-20 CREATININE 1.1 mg/dL 0.6-1.0 SODIUM 137 mmol/L 135-148 CHLORIDE 98 mmol/L 98-110 CARBON DIOXIDE 29 mmol/L METABOLIC PANEL, BASIC - 07/23/18 00:40 POTASSIUM 2.9 mmol/L 3.5-5.3 EST GFR (MDRD) 51 mL/min > 59 ANION GAP 10 mmol/L 5-15 EST CrCl (CG) 46 mL/min > 59 GLUCOSE 132 mg/dL 70-99 CALCIUM 7.7 mg/dL 8.5-10.1 BLOOD UREA NITROGEN 5 mg/dL 7-20 CREATININE 1.1 mg/dL 0.6-1.0 SODIUM 137 mmol/L 135-148 CHLORIDE 99 mmol/L 98-110 CARBON DIOXIDE 28 mmol/L CALCIUM IONIZED - 07/23/18 05:19 CALCIUM IONIZED 4.4 mg/dL 4.5-5.3 CBC W/DIFF - 07/23/18 05:19 BASOPHIL # 0.0 k/cumm 0.0-0.2 BASOPHIL % 0.8 % 0-1 EOSINOPHIL # 0.2 k/cumm 0.1-0.5 EOSINOPHIL % 3.2 % 2-4 GRANULOCYTE # 2.5 k/cumm 2.0-9.0 GRANULOCYTE % 47.9 % 50-75 LYMPHOCYTE # 1.9 k/cumm 1.0-4.0 LYMPHOCYTE % 35.9 % 20-30 MEAN CELL HGB 37.6 pg 27.0-33.0 MEAN CELL HGB CONCENTRATION 37.1 g/dL 32 .0-37.0 MEAN CELL VOLUME 101.4 fl 80.0-100.0 MONOCYTE # 0.6 k/cumm 0.1-1.0 MONOCYTE % 12.0 % 4-6 MEAN PLATELET VOLUME 10.3 fl 8.5-10.9 RED BLOOD CELL 3.67 m/cumm 4.00-6.00 RED CELL DISTRIBUTION WIDTH 14.5 % 11 .0-15.6 WHITE BLOOD CELL 5.3 k/cumm 5.0-10.0 HEMOGLOBIN 13.8 gm/dL 12.0-16.0 HEMATOCRIT 37.2 % 37.0-47.0 NRBC % 0.0 /100 WBC 0.0-0.0 PLATELET COUNT 151 k/cumm 150-400 IMMATURE GRANULOCYTE % 0.2 % 0.0-0.6 IMMATURE GRANULOCYTE # 0.01 k/cumm 0.00- 0.09 METABOLIC PANEL, COMPREHN - 07/23/18 06: 51 POTASSIUM 3.7 mmol/L 3.5-5.3 EST GFR (MDRD) 57 mL/min > 59 ANION GAP 11 mmol/L 5-15 EST CrCl (CG) 51 mL/min > 59 GLUCOSE 167 mg/dL 70-99 CALCIUM 8.0 mg/dL 8.5-10.1 BLOOD UREA NITROGEN 4 mg/dL 7-20 CREATININE 1.0 mg/dL 0.6-1.0 SODIUM 137 mmol/L 135-148 CHLORIDE 102 mmol/L 98-110 AST/SGOT 71 Units/L 10-37 ALT/SGPT 39 Units/L < 66 CARBON DIOXIDE 24 mmol/L 21-32 TOTAL PROTEIN 4.7 gm/dL 6.4-8.2 ALBUMIN 2.2 gm/dL 3.4-5.0 BILI TOTAL 1.9 mg/dL 0.0-1.0 ALKALINE PHOSPHATASE TOTAL 75 IU/L 45- 117 PHOSPHORUS - 07/23/18 06:51 PHOSPHORUS 1.9 mg/dL 2.5-4.9 MAGNESIUM - 07/23/18 06:51 MAGNESIUM 1.8 mg/dL 1.8-2.4 METABOLIC PANEL, BASIC - 07/23/18 09:14 POTASSIUM 3.6 mmol/L 3.5-5.3 EST GFR (MDRD) 57 mL/min > 59 ANION GAP 7 mmol/L 5-15 EST CrCl (CG) 51 mL/min > 59 GLUCOSE 98 mg/dL 70-99 CALCIUM 7.7 mg/dL 8.5-10.1 BLOOD UREA NITROGEN 5 mg/dL 7-20 CREATININE 1.0 mg/dL 0.6-1.0 SODIUM 135 mmol/L 135-148 CHLORIDE 102 mmol/L 98-110 CARBON DIOXIDE 26 mmol/L METABOLIC PANEL, BASIC - 07/23/18 12:59 POTASSIUM 3.3 mmol/L 3.5-5.3 EST GFR (MDRD) 57 mL/min > 59 ANION GAP 11 mmol/L 5-15 EST CrCl (CG) 51 mL/min > 59 GLUCOSE 131 mg/dL 70-99 CALCIUM 7.9 mg/dL 8.5-10.1 BLOOD UREA NITROGEN 4 mg/dL 7-20 CREATININE 1.0 mg/dL 0.6-1.0 SODIUM 137 mmol/L 135-148 CHLORIDE 101 mmol/L 98-110 CARBON DIOXIDE 25 mmol/L METABOLIC PANEL, BASIC - 07/23/18 17:06 POTASSIUM 3.7 mmol/L 3.5-5.3 EST GFR (MDRD) > 60 mL/min > 59 ANION GAP 9 mmol/L 5-15 EST CrCl (CG) 56 mL/min > 59 GLUCOSE 100 mg/dL 70-99 CALCIUM 8.1 mg/dL 8.5-10.1 BLOOD UREA NITROGEN 4 mg/dL 7-20 CREATININE 0.9 mg/dL 0.6-1.0 SODIUM 137 mmol/L 135-148 CHLORIDE 100 mmol/L 98-110 CARBON DIOXIDE 28 mmol/L CBC W/DIFF - 08/05/18 13:41 BASOPHIL # 0.1 k/cumm 0.0-0.2 BASOPHIL % 0.8 % 0-1 EOSINOPHIL # 0.1 k/cumm 0.1-0.5 EOSINOPHIL % 1.1 % 2-4 GRANULOCYTE # 3.8 k/cumm 2.0-9.0 GRANULOCYTE % 58.4 % 50-75 LYMPHOCYTE # 2.0 k/cumm 1.0-4.0 LYMPHOCYTE % 30.9 % 20-30 MEAN CELL HGB 37.7 pg 27.0-33.0 MEAN CELL HGB CONCENTRATION 35.7 g/dL 32 .0-37.0 MEAN CELL VOLUME 105.5 fl 80.0-100.0 MONOCYTE # 0.6 k/cumm 0.1-1.0 MONOCYTE % 8.6 % 4-6 MEAN PLATELET VOLUME 10.0 fl 8.5-10.9 RED BLOOD CELL 3.82 m/cumm 4.00-6.00 RED CELL DISTRIBUTION WIDTH 15.6 % 11 .0-15.6 WHITE BLOOD CELL 6.4 k/cumm 5.0-10.0 HEMOGLOBIN 14.4 gm/dL 12.0-16.0 HEMATOCRIT 40.3 % 37.0-47.0 NRBC % 0.0 /100 WBC 0.0-0.0 PLATELET COUNT 233 k/cumm 150-400 IMMATURE GRANULOCYTE % 0.2 % 0.0-0.6 IMMATURE GRANULOCYTE # 0.01 k/cumm 0.00- 0.09 METABOLIC PANEL, COMPREHN - 08/05/18 13: 41 POTASSIUM 3.0 mmol/L 3.5-5.3 EST GFR (MDRD) 51 mL/min > 59 ANION GAP 10 mmol/L 5-15 GLUCOSE 109 mg/dL 70-99 CALCIUM 8.1 mg/dL 8.5-10.1 BLOOD UREA NITROGEN 6 mg/dL 7-20 CREATININE 1.1 mg/dL 0.6-1.0 SODIUM 139 mmol/L 135-148 CHLORIDE 102 mmol/L 98-110 AST/SGOT 191 Units/L 10-37 ALT/SGPT 70 Units/L < 66 CARBON DIOXIDE 27 mmol/L 21-32 TOTAL PROTEIN 6.0 gm/dL 6.4-8.2 ALBUMIN 2.8 gm/dL 3.4-5.0 BILI TOTAL 1.8 mg/dL 0.0-1.0 ALKALINE PHOSPHATASE TOTAL 96 IU/L 45- 117 LIPASE - 08/05/18 13:41 LIPASE 128 Units/L 73-393 ALCOHOL (ETHANOL) SERUM - 08/05/18 13:41 ALCOHOL (ETHANOL) SERUM 196 mg/dL < 10 CBC W/DIFF - 10/27/18 12:50 BASOPHIL # 0.0 k/cumm 0.0-0.2 BASOPHIL % 0.5 % 0-1 EOSINOPHIL # 0.2 k/cumm 0.1-0.5 EOSINOPHIL % 3.7 % 2-4 GRANULOCYTE # 3.9 k/cumm 2.0-9.0 GRANULOCYTE % 64.6 % 50-75 LYMPHOCYTE # 1.5 k/cumm 1.0-4.0 LYMPHOCYTE % 24.2 % 20-30 MEAN CELL HGB 37.6 pg 27.0-33.0 MEAN CELL HGB CONCENTRATION 37.4 g/dL 32 .0-37.0 MEAN CELL VOLUME 100.7 fl 80.0-100.0 MONOCYTE # 0.4 k/cumm 0.1-1.0 MONOCYTE % 6.7 % 4-6 MEAN PLATELET VOLUME 10.9 fl 8.5-10.9 RED BLOOD CELL 3.03 m/cumm 4.00-6.00 RED CELL DISTRIBUTION WIDTH 13.2 % 11 .0-15.6 WHITE BLOOD CELL 6.0 k/cumm 5.0-10.0 HEMOGLOBIN 11.4 gm/dL 12.0-16.0 HEMATOCRIT 30.5 % 37.0-47.0 NRBC % 0.0 /100 WBC 0.0-0.0 PLATELET COUNT 277 k/cumm 150-400 IMMATURE GRANULOCYTE % 0.3 % 0.0-0.6 IMMATURE GRANULOCYTE # 0.02 k/cumm 0.00- 0.09 METABOLIC PANEL, COMPREHN - 10/27/18 12: 50 POTASSIUM 2.3 mmol/L 3.5-5.3 EST GFR (MDRD) > 60 mL/min > 59 ANION GAP 13 mmol/L 5-15 EST CrCl (CG) > 60 mL/min > 59 GLUCOSE 89 mg/dL 70-99 CALCIUM 7.7 mg/dL 8.5-10.1 BLOOD UREA NITROGEN 5 mg/dL 7-20 CREATININE 0.9 mg/dL 0.6-1.0 SODIUM 138 mmol/L 135-148 CHLORIDE 98 mmol/L 98-110 AST/SGOT 135 Units/L 10-37 ALT/SGPT 72 Units/L < 66 CARBON DIOXIDE 27 mmol/L 21-32 TOTAL PROTEIN 5.7 gm/dL 6.4-8.2 ALBUMIN 1.9 gm/dL 3.4-5.0 BILI TOTAL 2.6 mg/dL 0.0-1.0 ALKALINE PHOSPHATASE TOTAL 109 IU/L 45- 117 LIPASE - 10/27/18 12:50 LIPASE 85 Units/L 73-393 PROTHROMBIN TIME WITH INR - 10/27/18 12: 50 INTERNATIONAL NORMAL RATIO 0.9 0.9 -1.1 PROTHROMBIN TIME 10.6 sec 10.0-12.8 ALCOHOL (ETHANOL) SERUM - 10/27/18 12:50 ALCOHOL (ETHANOL) SERUM < 3 mg/dL < 10 HEPATITIS PANEL-ACUTE - 10/27/18 12:50 AB HEPATITIS A IGM NEGATIVE NEGATIVE AG HEPATITIS B SURF. NEGATIVE NEGATIVE AB HEPATITIS B CORE IGM NEGATIVE NEGATI VE AB HEPATITIS C NEGATIVE NEGATIVE FOLIC ACID,SERUM - 10/27/18 12:50 FOLIC ACID,SERUM 6.4 ng/mL > 3.4 VITAMIN B12 - 10/27/18 12:50 VITAMIN B12 > 2000 pg/mL 211-911 UR DRUGS OF ABUSE SCREEN - 10/27/18 22:0 0 UR AMPHETAMINES SCREEN NEG (<1000 ng/mL) NEGATIVE UR BARBITURATE SCREEN NEG (< 200 ng/mL) NEGATIVE DRUGS OF ABUSE SCREEN COMMENT UR OPIATES SCREEN NEG (< 300 ng/mL) NE GATIVE UR PHENCYCLIDINE (PCP) SCREEN NEG (< 25 ng/mL) NEGATIVE UR CANNABINOIDS (THC) SCREEN NEG (< 50 ng/mL) NEGATIVE UR COCAINE METABOLITE SCREEN NEG (< 300 ng/mL) NEGATIVE UR METHADONE SCREEN NEG (< 300 ng/mL) NEGATIVE UR BENZODIAZEPINE SCREEN NEG (< 200 ng/mL) NEGATIVE URINALYSIS, ROUTINE - 10/27/18 22:00 UA LEUKOCYTE ESTERASE DIPSTICK TRACE NEGATIVE UA NITRITE DIPSTICK NEGATIVE NEGATIVE UA PROTEIN DIPSTICK NEGATIVE NEGATIVE UA GLUCOSE DIPSTICK NEGATIVE NEGATIVE UA KETONE DIPSTICK TRACE NEGATIVE UA UROBILINOGEN DIPSTICK NORMAL [place] L UA BILIRUBIN DIPSTICK POSITIVE NEGATIVE UA BLOOD DIPSTICK NEGATIVE NEGATIVE UA SPECIFIC GRAVITY > 1.051 1.015-1.02 5 UR PH 6.5 5.0-7.0 UA MICROSCOPIC - 10/27/18 22:00 UA BACTERIA 2+ NEGATIVE UA EPITHELIAL CELLS 1+ epi/hpf 0 - 1+ UA RBC 0 rbc/hpf 0 - 3 UA WBC 2-5 wbc/hpf 0 - 5 METABOLIC PANEL, COMPREHN - 10/28/18 05: 32 POTASSIUM 1.9 mmol/L 3.5-5.3 EST GFR (MDRD) 46 mL/min > 59 ANION GAP 13 mmol/L 5-15 EST CrCl (CG) 47 mL/min > 59 GLUCOSE 189 mg/dL 70-99 CALCIUM 7.3 mg/dL 8.5-10.1 BLOOD UREA NITROGEN 9 mg/dL 7-20 CREATININE 1.2 mg/dL 0.6-1.0 SODIUM 139 mmol/L 135-148 CHLORIDE 102 mmol/L 98-110 AST/SGOT 95 Units/L 10-37 ALT/SGPT 58 Units/L < 66 CARBON DIOXIDE 24 mmol/L 21-32 TOTAL PROTEIN 4.3 gm/dL 6.4-8.2 ALBUMIN 1.5 gm/dL 3.4-5.0 BILI TOTAL 2.3 mg/dL 0.0-1.0 ALKALINE PHOSPHATASE TOTAL 88 IU/L 45- 117 MAGNESIUM - 10/28/18 05:32 MAGNESIUM 2.3 mg/dL 1.8-2.4 CBC W/DIFF - 10/28/18 06:35 BASOPHIL # 0.0 k/cumm 0.0-0.2 BASOPHIL % 0.6 % 0-1 EOSINOPHIL # 0.1 k/cumm 0.1-0.5 EOSINOPHIL % 1.7 % 2-4 GRANULOCYTE # 3.3 k/cumm 2.0-9.0 GRANULOCYTE % 61.3 % 50-75 LYMPHOCYTE # 1.5 k/cumm 1.0-4.0 LYMPHOCYTE % 28.4 % 20-30 MEAN CELL HGB 36.9 pg 27.0-33.0 MEAN CELL HGB CONCENTRATION 35.9 g/dL 32 .0-37.0 MEAN CELL VOLUME 102.8 fl 80.0-100.0 MONOCYTE # 0.4 k/cumm 0.1-1.0 MONOCYTE % 7.8 % 4-6 MEAN PLATELET VOLUME 10.7 fl 8.5-10.9 RED BLOOD CELL 2.52 m/cumm 4.00-6.00 RED CELL DISTRIBUTION WIDTH 13.3 % 11 .0-15.6 WHITE BLOOD CELL 5.4 k/cumm 5.0-10.0 HEMOGLOBIN 9.3 gm/dL 12.0-16.0 HEMATOCRIT 25.9 % 37.0-47.0 NRBC % 0.0 /100 WBC 0.0-0.0 PLATELET COUNT 187 k/cumm 150-400 IMMATURE GRANULOCYTE % 0.2 % 0.0-0.6 IMMATURE GRANULOCYTE # 0.01 k/cumm 0.00- 0.09 CBC W/DIFF - 10/29/18 05:05 BASOPHIL # 0.0 k/cumm 0.0-0.2 BASOPHIL % 0.8 % 0-1 EOSINOPHIL # 0.1 k/cumm 0.1-0.5 EOSINOPHIL % 2.1 % 2-4 GRANULOCYTE # 3.3 k/cumm 2.0-9.0 GRANULOCYTE % 63.9 % 50-75 LYMPHOCYTE # 1.4 k/cumm 1.0-4.0 LYMPHOCYTE % 27.4 % 20-30 MEAN CELL HGB 37.0 pg 27.0-33.0 MEAN CELL HGB CONCENTRATION 35.7 g/dL 32 .0-37.0 MEAN CELL VOLUME 103.5 fl 80.0-100.0 MONOCYTE # 0.3 k/cumm 0.1-1.0 MONOCYTE % 5.8 % 4-6 MEAN PLATELET VOLUME 10.5 fl 8.5-10.9 RED BLOOD CELL 2.57 m/cumm 4.00-6.00 RED CELL DISTRIBUTION WIDTH 13.3 % 11 .0-15.6 WHITE BLOOD CELL 5.1 k/cumm 5.0-10.0 HEMOGLOBIN 9.5 gm/dL 12.0-16.0 HEMATOCRIT 26.6 % 37.0-47.0 NRBC % 0.0 /100 WBC 0.0-0.0 PLATELET COUNT 184 k/cumm 150-400 IMMATURE GRANULOCYTE % 0.0 % 0.0-0.6 IMMATURE GRANULOCYTE # 0.00 k/cumm 0.00- 0.09 RENAL FUNCTION PANEL - 10/29/18 05:05 POTASSIUM 2.1 mmol/L 3.5-5.3 EST GFR (MDRD) 57 mL/min > 59 ANION GAP 10 mmol/L 5-15 EST CrCl (CG) 57 mL/min > 59 GLUCOSE 119 mg/dL 70-99 CALCIUM 7.4 mg/dL 8.5-10.1 BLOOD UREA NITROGEN 6 mg/dL 7-20 CREATININE 1.0 mg/dL 0.6-1.0 SODIUM 144 mmol/L 135-148 CHLORIDE 106 mmol/L 98-110 CARBON DIOXIDE 28 mmol/L 21-32 ALBUMIN 1.6 gm/dL 3.4-5.0 PHOSPHORUS 1.5 mg/dL 2.5-4.9 FERRITIN - 10/29/18 05:05 FERRITIN 581 ng/mL 8-252 POTASSIUM - 10/29/18 15:51 POTASSIUM 2.6 mmol/L 3.5-5.3 CBC - 10/30/18 05:37 MEAN CELL HGB 37.2 pg 27.0-33.0 MEAN CELL HGB CONCENTRATION 35.4 g/dL 32 .0-37.0 MEAN CELL VOLUME 105.0 fl 80.0-100.0 MEAN PLATELET VOLUME 11.3 fl 8.5-10.9 RED BLOOD CELL 2.42 m/cumm 4.00-6.00 RED CELL DISTRIBUTION WIDTH 13.4 % 11 .0-15.6 WHITE BLOOD CELL 4.8 k/cumm 5.0-10.0 HEMOGLOBIN 9.0 gm/dL 12.0-16.0 HEMATOCRIT 25.4 % 37.0-47.0 NRBC % 0.4 /100 WBC 0.0-0.0 PLATELET COUNT 151 k/cumm 150-400 RENAL FUNCTION PANEL - 10/30/18 05:37 POTASSIUM 3.0 mmol/L 3.5-5.3 EST GFR (MDRD) > 60 mL/min > 59 ANION GAP 10 mmol/L 5-15 EST CrCl (CG) > 60 mL/min > 59 GLUCOSE 102 mg/dL 70-99 CALCIUM 7.2 mg/dL 8.5-10.1 BLOOD UREA NITROGEN 5 mg/dL 7-20 CREATININE 0.7 mg/dL 0.6-1.0 SODIUM 144 mmol/L 135-148 CHLORIDE 109 mmol/L 98-110 CARBON DIOXIDE 25 mmol/L 21-32 ALBUMIN 1.4 gm/dL 3.4-5.0 PHOSPHORUS 1.9 mg/dL 2.5-4.9 MAGNESIUM - 10/30/18 05:37 MAGNESIUM 1.9 mg/dL 1.8-2.4 POTASSIUM - 10/30/18 15:23 POTASSIUM 3.6 mmol/L 3.5-5.3 CBC W/DIFF - 11/05/18 06:32 BASOPHIL # 0.0 k/cumm 0.0-0.2 BASOPHIL % 0.2 % 0-1 COMMENT REVIEWED EOSINOPHIL # 0.2 k/cumm 0.1-0.5 EOSINOPHIL % 1.4 % 2-4 GRANULOCYTE # 9.7 k/cumm 2.0-9.0 GRANULOCYTE % 78.3 % 50-75 LYMPHOCYTE # 1.6 k/cumm 1.0-4.0 LYMPHOCYTE % 12.9 % 20-30 MEAN CELL HGB 36.7 pg 27.0-33.0 MEAN CELL HGB CONCENTRATION 34.6 g/dL 32 .0-37.0 MEAN CELL VOLUME 106.2 fl 80.0-100.0 MONOCYTE # 0.8 k/cumm 0.1-1.0 MONOCYTE % 6.6 % 4-6 MEAN PLATELET VOLUME 11.1 fl 8.5-10.9 RED BLOOD CELL 3.05 m/cumm 4.00-6.00 RED CELL DISTRIBUTION WIDTH 13.7 % 11 .0-15.6 WHITE BLOOD CELL 12.4 k/cumm 5.0-10.0 HEMOGLOBIN 11.2 gm/dL 12.0-16.0 HEMATOCRIT 32.4 % 37.0-47.0 NRBC % 0.0 /100 WBC 0.0-0.0 PLATELET COUNT 347 k/cumm 150-400 IMMATURE GRANULOCYTE % 0.6 % 0.0-0.6 IMMATURE GRANULOCYTE # 0.07 k/cumm 0.00- 0.09 METABOLIC PANEL, COMPREHN - 11/05/18 06: 32 POTASSIUM 2.5 mmol/L 3.5-5.3 EST GFR (MDRD) > 60 mL/min > 59 ANION GAP 10 mmol/L 5-15 EST CrCl (CG) > 60 mL/min > 59 GLUCOSE 106 mg/dL 70-99 CALCIUM 7.4 mg/dL 8.5-10.1 BLOOD UREA NITROGEN 4 mg/dL 7-20 CREATININE 0.8 mg/dL 0.6-1.0 SODIUM 137 mmol/L 135-148 CHLORIDE 102 mmol/L 98-110 AST/SGOT 62 Units/L 10-37 ALT/SGPT 52 Units/L < 66 CARBON DIOXIDE 25 mmol/L 21-32 TOTAL PROTEIN 5.5 gm/dL 6.4-8.2 ALBUMIN 1.7 gm/dL 3.4-5.0 BILI TOTAL 1.4 mg/dL 0.0-1.0 ALKALINE PHOSPHATASE TOTAL 117 IU/L 45- 117 LIPASE - 11/05/18 06:32 LIPASE 65 Units/L 73-393 TROPONIN I - 11/05/18 06:32 TROPONIN I 0.05 ng/mL < 0.07 BLOOD CULTURE - 11/06/18 03:57 Microbiology BLOOD CULTURE - 11/06/18 03:57 Microbiology CBC W/DIFF - 11/06/18 04:19 BASOPHIL # 0.0 k/cumm 0.0-0.2 BASOPHIL % 0.3 % 0-1 EOSINOPHIL # 0.1 k/cumm 0.1-0.5 EOSINOPHIL % 1.3 % 2-4 GRANULOCYTE # 6.0 k/cumm 2.0-9.0 GRANULOCYTE % 80.9 % 50-75 LYMPHOCYTE # 1.0 k/cumm 1.0-4.0 LYMPHOCYTE % 13.5 % 20-30 MEAN CELL HGB 36.6 pg 27.0-33.0 MEAN CELL HGB CONCENTRATION 34.5 g/dL 32 .0-37.0 MEAN CELL VOLUME 106.1 fl 80.0-100.0 MONOCYTE # 0.3 k/cumm 0.1-1.0 MONOCYTE % 3.6 % 4-6 MEAN PLATELET VOLUME 10.5 fl 8.5-10.9 RED BLOOD CELL 2.46 m/cumm 4.00-6.00 RED CELL DISTRIBUTION WIDTH 13.6 % 11 .0-15.6 WHITE BLOOD CELL 7.5 k/cumm 5.0-10.0 HEMOGLOBIN 9.0 gm/dL 12.0-16.0 HEMATOCRIT 26.1 % 37.0-47.0 NRBC % 0.0 /100 WBC 0.0-0.0 PLATELET COUNT 314 k/cumm 150-400 IMMATURE GRANULOCYTE % 0.4 % 0.0-0.6 IMMATURE GRANULOCYTE # 0.03 k/cumm 0.00- 0.09 LACTIC ACID - 11/06/18 04:19 LACTIC ACID 3.1 mmol/L 0.5-2.0 METABOLIC PANEL, COMPREHN - 11/06/18 04: 19 POTASSIUM 3.0 mmol/L 3.5-5.3 EST GFR (MDRD) > 60 mL/min > 59 ANION GAP 10 mmol/L 5-15 EST CrCl (CG) 56 mL/min > 59 GLUCOSE 106 mg/dL 70-99 CALCIUM 7.0 mg/dL 8.5-10.1 BLOOD UREA NITROGEN 6 mg/dL 7-20 CREATININE 0.9 mg/dL 0.6-1.0 SODIUM 140 mmol/L 135-148 CHLORIDE 108 mmol/L 98-110 AST/SGOT 440 Units/L 10-37 ALT/SGPT 112 Units/L < 66 CARBON DIOXIDE 22 mmol/L 21-32 TOTAL PROTEIN 4.6 gm/dL 6.4-8.2 ALBUMIN 1.4 gm/dL 3.4-5.0 BILI TOTAL 2.0 mg/dL 0.0-1.0 ALKALINE PHOSPHATASE TOTAL 116 IU/L 45- 117 MAGNESIUM - 11/06/18 04:19 MAGNESIUM 1.7 mg/dL 1.8-2.4 URINALYSIS, ROUTINE - 11/06/18 05:59 UA LEUKOCYTE ESTERASE DIPSTICK 1+ NEGATIVE UA NITRITE DIPSTICK NEGATIVE NEGATIVE UA PROTEIN DIPSTICK NEGATIVE NEGATIVE UA GLUCOSE DIPSTICK NEGATIVE NEGATIVE UA KETONE DIPSTICK NEGATIVE NEGATIVE UA UROBILINOGEN DIPSTICK [place] L UA BILIRUBIN DIPSTICK NEGATIVE NEGATIVE UA BLOOD DIPSTICK NEGATIVE NEGATIVE UA SPECIFIC GRAVITY 1.018 1.015-1.02 5 UR PH 6.5 5.0-7.0 UA MICROSCOPIC - 11/06/18 05:59 UA BACTERIA 1+ NEGATIVE UA EPITHELIAL CELLS 3+ epi/hpf 0 - 1+ UA RBC 0-3 rbc/hpf 0 - 3 UA VOLUME FOR EXAM 12.0 mL (12mL STD) UA WBC 2-5 wbc/hpf 0 - 5 AG LEGIONELLA URINE - 11/06/18 11:31 Microbiology CHLAMYDIA DNA BY PCR - 11/06/18 11:31 Microbiology VIRUS RESPIRATORY PROFILE - 11/06/18 12: 00 Microbiology RENAL FUNCTION PANEL - 11/06/18 12:05 POTASSIUM 3.4 mmol/L 3.5-5.3 EST GFR (MDRD) > 60 mL/min > 59 ANION GAP 13 mmol/L 5-15 EST CrCl (CG) > 60 mL/min > 59 GLUCOSE 105 mg/dL 70-99 CALCIUM 7.0 mg/dL 8.5-10.1 BLOOD UREA NITROGEN 6 mg/dL 7-20 CREATININE 0.8 mg/dL 0.6-1.0 SODIUM 142 mmol/L 135-148 CHLORIDE 108 mmol/L 98-110 CARBON DIOXIDE 21 mmol/L 21-32 ALBUMIN 1.5 gm/dL 3.4-5.0 PHOSPHORUS 2.6 mg/dL 2.5-4.9 LACTIC ACID - 11/06/18 12:06 LACTIC ACID 4.8 mmol/L 0.5-2.0 [place] - 11/06/18 17:45 Microbiology LACTIC ACID - 11/06/18 18:20 LACTIC ACID 4.4 mmol/L 0.5-2.0 LACTIC ACID - 11/06/18 21:28 LACTIC ACID 3.6 mmol/L 0.5-2.0 CBC - 11/07/18 04:06 MEAN CELL HGB 37.2 pg 27.0-33.0 MEAN CELL HGB CONCENTRATION 34.5 g/dL 32 .0-37.0 MEAN CELL VOLUME 107.8 fl 80.0-100.0 MEAN PLATELET VOLUME 11.1 fl 8.5-10.9 RED BLOOD CELL 2.31 m/cumm 4.00-6.00 RED CELL DISTRIBUTION WIDTH 14.0 % 11 .0-15.6 WHITE BLOOD CELL 7.4 k/cumm 5.0-10.0 HEMOGLOBIN 8.6 gm/dL 12.0-16.0 HEMATOCRIT 24.9 % 37.0-47.0 NRBC % 0.0 /100 WBC 0.0-0.0 PLATELET COUNT 265 k/cumm 150-400 RENAL FUNCTION PANEL - 11/07/18 04:06 POTASSIUM 3.8 mmol/L 3.5-5.3 EST GFR (MDRD) > 60 mL/min > 59 ANION GAP 7 mmol/L 5-15 EST CrCl (CG) > 60 mL/min > 59 GLUCOSE 82 mg/dL 70-99 CALCIUM 6.9 mg/dL 8.5-10.1 BLOOD UREA NITROGEN 5 mg/dL 7-20 CREATININE 0.8 mg/dL 0.6-1.0 SODIUM 138 mmol/L 135-148 CHLORIDE 109 mmol/L 98-110 CARBON DIOXIDE 22 mmol/L 21-32 ALBUMIN 1.2 gm/dL 3.4-5.0 PHOSPHORUS 2.4 mg/dL 2.5-4.9 LACTIC ACID - 11/07/18 13:44 LACTIC ACID 1.2 mmol/L 0.5-2.0 CBC - 11/08/18 04:22 MEAN CELL HGB 36.3 pg 27.0-33.0 MEAN CELL HGB CONCENTRATION 33.5 g/dL 32 .0-37.0 MEAN CELL VOLUME 108.4 fl 80.0-100.0 MEAN PLATELET VOLUME 11.0 fl 8.5-10.9 RED BLOOD CELL 2.26 m/cumm 4.00-6.00 RED CELL DISTRIBUTION WIDTH 14.0 % 11 .0-15.6 WHITE BLOOD CELL 6.1 k/cumm 5.0-10.0 HEMOGLOBIN 8.2 gm/dL 12.0-16.0 HEMATOCRIT 24.5 % 37.0-47.0 NRBC % 0.0 /100 WBC 0.0-0.0 PLATELET COUNT 258 k/cumm 150-400 METABOLIC PANEL, COMPREHN - 11/08/18 04: 22 POTASSIUM 4.7 mmol/L 3.5-5.3 EST GFR (MDRD) > 60 mL/min > 59 ANION GAP 9 mmol/L 5-15 EST CrCl (CG) > 60 mL/min > 59 GLUCOSE 73 mg/dL 70-99 CALCIUM 6.9 mg/dL 8.5-10.1 BLOOD UREA NITROGEN 3 mg/dL 7-20 CREATININE 0.8 mg/dL 0.6-1.0 SODIUM 139 mmol/L 135-148 CHLORIDE 110 mmol/L 98-110 AST/SGOT 714 Units/L 10-37 ALT/SGPT 348 Units/L < 66 CARBON DIOXIDE 20 mmol/L 21-32 TOTAL PROTEIN 4.1 gm/dL 6.4-8.2 ALBUMIN 1.2 gm/dL 3.4-5.0 BILI TOTAL 1.9 mg/dL 0.0-1.0 ALKALINE PHOSPHATASE TOTAL 130 IU/L 45- 117 CBC - 11/09/18 04:09 MEAN CELL HGB 36.5 pg 27.0-33.0 MEAN CELL HGB CONCENTRATION 33.6 g/dL 32 .0-37.0 MEAN CELL VOLUME 108.7 fl 80.0-100.0 MEAN PLATELET VOLUME 11.0 fl 8.5-10.9 RED BLOOD CELL 2.41 m/cumm 4.00-6.00 RED CELL DISTRIBUTION WIDTH 14.3 % 11 .0-15.6 WHITE BLOOD CELL 6.4 k/cumm 5.0-10.0 HEMOGLOBIN 8.8 gm/dL 12.0-16.0 HEMATOCRIT 26.2 % 37.0-47.0 NRBC % 0.0 /100 WBC 0.0-0.0 PLATELET COUNT 285 k/cumm 150-400 RENAL FUNCTION PANEL - 11/09/18 04:09 POTASSIUM 5.6 mmol/L 3.5-5.3 EST GFR (MDRD) 57 mL/min > 59 ANION GAP 8 mmol/L 5-15 EST CrCl (CG) 55 mL/min > 59 GLUCOSE 90 mg/dL 70-99 CALCIUM 7.9 mg/dL 8.5-10.1 BLOOD UREA NITROGEN 3 mg/dL 7-20 CREATININE 1.0 mg/dL 0.6-1.0 SODIUM 137 mmol/L 135-148 CHLORIDE 108 mmol/L 98-110 CARBON DIOXIDE 21 mmol/L 21-32 ALBUMIN 1.4 gm/dL 3.4-5.0 PHOSPHORUS 2.2 mg/dL 2.5-4.9 MAGNESIUM - 11/09/18 04:09 MAGNESIUM 1.8 mg/dL 1.8-2.4 GLUCOSE (POC) - 11/09/18 10:05 GLUCOSE (POC) 142 mg/dL 70-99 RENAL FUNCTION PANEL - 11/09/18 11:02 POTASSIUM 4.9 mmol/L 3.5-5.3 EST GFR (MDRD) > 60 mL/min > 59 ANION GAP 7 mmol/L 5-15 EST CrCl (CG) > 60 mL/min > 59 GLUCOSE 43 mg/dL 70-99 CALCIUM 7.9 mg/dL 8.5-10.1 BLOOD UREA NITROGEN 3 mg/dL 7-20 CREATININE 0.9 mg/dL 0.6-1.0 SODIUM 140 mmol/L 135-148 CHLORIDE 110 mmol/L 98-110 CARBON DIOXIDE 23 mmol/L 21-32 ALBUMIN 1.5 gm/dL 3.4-5.0 PHOSPHORUS 1.7 mg/dL 2.5-4.9 TROPONIN I - 11/09/18 11:02 TROPONIN I 0.04 ng/mL < 0.07 GLUCOSE (POC) - 11/09/18 12:09 GLUCOSE (POC) 81 mg/dL 70-99 CBC W/DIFF - 11/10/18 04:55 BASOPHIL # 0.0 k/cumm 0.0-0.2 BASOPHIL % 0.3 % 0-1 EOSINOPHIL # 0.2 k/cumm 0.1-0.5 EOSINOPHIL % 3.0 % 2-4 GRANULOCYTE # 5.0 k/cumm 2.0-9.0 GRANULOCYTE % 68.6 % 50-75 LYMPHOCYTE # 1.4 k/cumm 1.0-4.0 LYMPHOCYTE % 18.8 % 20-30 MEAN CELL HGB 36.2 pg 27.0-33.0 MEAN CELL HGB CONCENTRATION 33.5 g/dL 32 .0-37.0 MEAN CELL VOLUME 108.1 fl 80.0-100.0 MONOCYTE # 0.7 k/cumm 0.1-1.0 MONOCYTE % 9.0 % 4-6 MEAN PLATELET VOLUME 10.9 fl 8.5-10.9 RED BLOOD CELL 2.21 m/cumm 4.00-6.00 RED CELL DISTRIBUTION WIDTH 14.4 % 11 .0-15.6 WHITE BLOOD CELL 7.2 k/cumm 5.0-10.0 HEMOGLOBIN 8.0 gm/dL 12.0-16.0 HEMATOCRIT 23.9 % 37.0-47.0 NRBC % 0.0 /100 WBC 0.0-0.0 PLATELET COUNT 254 k/cumm 150-400 IMMATURE GRANULOCYTE % 0.3 % 0.0-0.6 IMMATURE GRANULOCYTE # 0.02 k/cumm 0.00- 0.09 RENAL FUNCTION PANEL - 11/10/18 04:55 POTASSIUM 4.6 mmol/L 3.5-5.3 EST GFR (MDRD) > 60 mL/min > 59 ANION GAP 7 mmol/L 5-15 EST CrCl (CG) > 60 mL/min > 59 GLUCOSE 106 mg/dL 70-99 CALCIUM 7.8 mg/dL 8.5-10.1 BLOOD UREA NITROGEN 2 mg/dL 7-20 CREATININE 0.9 mg/dL 0.6-1.0 SODIUM 136 mmol/L 135-148 CHLORIDE 106 mmol/L 98-110 CARBON DIOXIDE 23 mmol/L 21-32 ALBUMIN 1.3 gm/dL 3.4-5.0 PHOSPHORUS 3.3 mg/dL 2.5-4.9 MAGNESIUM - 11/10/18 04:55 MAGNESIUM 1.7 mg/dL 1.8-2.4 CBC W/DIFF - 11/10/18 20:37 BASOPHIL # 0.0 k/cumm 0.0-0.2 BASOPHIL % 0.3 % 0-1 EOSINOPHIL # 0.2 k/cumm 0.1-0.5 EOSINOPHIL % 2.2 % 2-4 GRANULOCYTE # 6.8 k/cumm 2.0-9.0 GRANULOCYTE % 71.5 % 50-75 LYMPHOCYTE # 1.5 k/cumm 1.0-4.0 LYMPHOCYTE % 15.9 % 20-30 MEAN CELL HGB 36.2 pg 27.0-33.0 MEAN CELL HGB CONCENTRATION 32.6 g/dL 32 .0-37.0 MEAN CELL VOLUME 111.2 fl 80.0-100.0 MONOCYTE # 0.9 k/cumm 0.1-1.0 MONOCYTE % 9.6 % 4-6 MEAN PLATELET VOLUME 11.1 fl 8.5-10.9 RED BLOOD CELL 2.32 m/cumm 4.00-6.00 RED CELL DISTRIBUTION WIDTH 14.0 % 11 .0-15.6 WHITE BLOOD CELL 9.6 k/cumm 5.0-10.0 HEMOGLOBIN 8.4 gm/dL 12.0-16.0 HEMATOCRIT 25.8 % 37.0-47.0 NRBC % 0.0 /100 WBC 0.0-0.0 PLATELET COUNT 291 k/cumm 150-400 IMMATURE GRANULOCYTE % 0.5 % 0.0-0.6 IMMATURE GRANULOCYTE # 0.05 k/cumm 0.00- 0.09 METABOLIC PANEL, COMPREHN - 11/10/18 20: 37 POTASSIUM 4.9 mmol/L 3.5-5.3 EST GFR (MDRD) > 60 mL/min > 59 ANION GAP 6 mmol/L 5-15 EST CrCl (CG) 56 mL/min > 59 GLUCOSE 101 mg/dL 70-99 CALCIUM 8.0 mg/dL 8.5-10.1 BLOOD UREA NITROGEN 3 mg/dL 7-20 CREATININE 0.9 mg/dL 0.6-1.0 SODIUM 132 mmol/L 135-148 CHLORIDE 102 mmol/L 98-110 AST/SGOT 118 Units/L 10-37 ALT/SGPT 191 Units/L < 66 CARBON DIOXIDE 24 mmol/L 21-32 TOTAL PROTEIN 5.2 gm/dL 6.4-8.2 ALBUMIN 1.6 gm/dL 3.4-5.0 BILI TOTAL 1.5 mg/dL 0.0-1.0 ALKALINE PHOSPHATASE TOTAL 167 IU/L 45- 117 LIPASE - 11/10/18 20:37 LIPASE 107 Units/L 73-393 FECAL OCCULT BLOOD - 11/11/18 00:00 Microbiology CBC W/DIFF - 11/11/18 12:54 BASOPHIL # 0.0 k/cumm 0.0-0.2 BASOPHIL % 0.1 % 0-1 EOSINOPHIL # 0.0 k/cumm 0.1-0.5 EOSINOPHIL % 0.2 % 2-4 GRANULOCYTE # 8.3 k/cumm 2.0-9.0 GRANULOCYTE % 71.7 % 50-75 LYMPHOCYTE # 2.0 k/cumm 1.0-4.0 LYMPHOCYTE % 17.6 % 20-30 MEAN CELL HGB 37.2 pg 27.0-33.0 MEAN CELL HGB CONCENTRATION 31.5 g/dL 32 .0-37.0 MEAN CELL VOLUME 118.0 fl 80.0-100.0 MONOCYTE # 1.0 k/cumm 0.1-1.0 MONOCYTE % 9.0 % 4-6 MEAN PLATELET VOLUME 12.5 fl 8.5-10.9 RED BLOOD CELL 1.83 m/cumm 4.00-6.00 RED CELL DISTRIBUTION WIDTH 14.2 % 11 .0-15.6 WHITE BLOOD CELL 11.6 k/cumm 5.0-10.0 HEMOGLOBIN 6.8 gm/dL 12.0-16.0 HEMATOCRIT 21.6 % 37.0-47.0 NRBC % 0.2 /100 WBC 0.0-0.0 PLATELET COUNT 289 k/cumm 150-400 IMMATURE GRANULOCYTE % 1.4 % 0.0-0.6 IMMATURE GRANULOCYTE # 0.16 k/cumm 0.00- 0.09 METABOLIC PANEL, COMPREHN - 11/11/18 12: 54 POTASSIUM 5.9 mmol/L 3.5-5.3 EST GFR (MDRD) 36 mL/min > 59 ANION GAP 18 mmol/L 5-15 EST CrCl (CG) 33 mL/min > 59 GLUCOSE 68 mg/dL 70-99 CALCIUM 8.2 mg/dL 8.5-10.1 BLOOD UREA NITROGEN 10 mg/dL 7-20 CREATININE 1.5 mg/dL 0.6-1.0 SODIUM 134 mmol/L 135-148 CHLORIDE 102 mmol/L 98-110 AST/SGOT 120 Units/L 10-37 ALT/SGPT 157 Units/L < 66 CARBON DIOXIDE 14 mmol/L 21-32 TOTAL PROTEIN 5.0 gm/dL 6.4-8.2 ALBUMIN 1.5 gm/dL 3.4-5.0 BILI TOTAL 1.6 mg/dL 0.0-1.0 ALKALINE PHOSPHATASE TOTAL 154 IU/L 45- 117 URINALYSIS, ROUTINE - 11/11/18 14:25 UA LEUKOCYTE ESTERASE DIPSTICK TRACE NEGATIVE UA NITRITE DIPSTICK NEGATIVE NEGATIVE UA PROTEIN DIPSTICK TRACE NEGATIVE UA GLUCOSE DIPSTICK NEGATIVE NEGATIVE UA KETONE DIPSTICK TRACE NEGATIVE UA UROBILINOGEN DIPSTICK [place] L UA BILIRUBIN DIPSTICK POSITIVE NEGATIVE UA BLOOD DIPSTICK NEGATIVE NEGATIVE UA SPECIFIC GRAVITY 1.030 1.015-1.02 5 UR PH 5.0 5.0-7.0 UA MICROSCOPIC - 11/11/18 14:25 UA BACTERIA 3+ NEGATIVE UA EPITHELIAL CELLS 1+ epi/hpf 0 - 1+ UA HYALINE CAST >10 cast/lpf 0 - 1 UA RBC 0 rbc/hpf 0 - 3 UA VOLUME FOR EXAM 2.0 mL (12mL STD) UA WBC 0-1 wbc/hpf 0 - 5 UR DRUGS OF ABUSE SCREEN - 11/11/18 14:2 5 UR AMPHETAMINES SCREEN NEG (<1000 ng/mL) NEGATIVE UR BARBITURATE SCREEN NEG (< 200 ng/mL) NEGATIVE DRUGS OF ABUSE SCREEN COMMENT UR OPIATES SCREEN POS (> 300 ng/mL) NE GATIVE UR PHENCYCLIDINE (PCP) SCREEN NEG (< 25 ng/mL) NEGATIVE UR CANNABINOIDS (THC) SCREEN NEG (< 50 ng/mL) NEGATIVE UR COCAINE METABOLITE SCREEN NEG (< 300 ng/mL) NEGATIVE UR METHADONE SCREEN NEG (< 300 ng/mL) NEGATIVE UR BENZODIAZEPINE SCREEN NEG (< 200 ng/mL) NEGATIVE LACTIC ACID - 11/11/18 15:08 LACTIC ACID 12.5 mmol/L 0.5-2.0 BLOOD CULTURE - 11/11/18 15:12 Microbiology GLUCOSE (POC) - 11/11/18 15:22 GLUCOSE (POC) 27 mg/dL 70-99 BLOOD CULTURE - 11/11/18 15:26 Microbiology RETICULOCYTE COUNT - 11/11/18 16:00 IMMATURE FRACTION 36.9 % 9.3-17.4 RED BLOOD CELL 1.52 m/cumm 4.00-6.00 ABSOLUTE RETIC COUNT 106.9 k/cumm 39.1-5 7.0 PERCENT RETIC 7.0 % 0.86-1.36 RETIC HGB EQUIVALENT 44.9 pg/cell 27.1-3 5.2 LACTIC ACID - 11/11/18 16:00 LACTIC ACID 11.8 mmol/L 0.5-2.0 CBC W/DIFF - 11/11/18 16:00 BASOPHIL # 0.0 k/cumm 0.0-0.2 BASOPHIL % 0.1 % 0-1 EOSINOPHIL # 0.0 k/cumm 0.1-0.5 EOSINOPHIL % 0.0 % 2-4 GRANULOCYTE # 11.7 k/cumm 2.0-9.0 GRANULOCYTE % 78.7 % 50-75 LYMPHOCYTE # 1.8 k/cumm 1.0-4.0 LYMPHOCYTE % 11.8 % 20-30 MEAN CELL HGB 36.8 pg 27.0-33.0 MEAN CELL HGB CONCENTRATION 29.8 g/dL 32 .0-37.0 MEAN CELL VOLUME 123.2 fl 80.0-100.0 MONOCYTE # 1.2 k/cumm 0.1-1.0 MONOCYTE % 7.9 % 4-6 MEAN PLATELET VOLUME 12.1 fl 8.5-10.9 POLYCHROMASIA NOTED RED BLOOD CELL 1.55 m/cumm 4.00-6.00 RED CELL DISTRIBUTION WIDTH 14.5 % 11 .0-15.6 TOXIC GRANULATION NOTED WHITE BLOOD CELL 14.9 k/cumm 5.0-10.0 HEMOGLOBIN 5.7 gm/dL 12.0-16.0 HEMATOCRIT 19.1 % 37.0-47.0 NRBC % 0.0 /100 WBC 0.0-0.0 PLATELET COUNT 253 k/cumm 150-400 IMMATURE GRANULOCYTE % 1.5 % 0.0-0.6 IMMATURE GRANULOCYTE # 0.22 k/cumm 0.00- 0.09 RENAL FUNCTION PANEL - 11/11/18 16:00 POTASSIUM 5.3 mmol/L 3.5-5.3 EST GFR (MDRD) 36 mL/min > 59 ANION GAP 20 mmol/L 5-15 EST CrCl (CG) 33 mL/min > 59 GLUCOSE 115 mg/dL 70-99 CALCIUM 7.4 mg/dL 8.5-10.1 BLOOD UREA NITROGEN 10 mg/dL 7-20 CREATININE 1.5 mg/dL 0.6-1.0 SODIUM 136 mmol/L 135-148 CHLORIDE 105 mmol/L 98-110 CARBON DIOXIDE 11 mmol/L 21-32 ALBUMIN 1.4 gm/dL 3.4-5.0 PHOSPHORUS 4.2 mg/dL 2.5-4.9 ALCOHOL (ETHANOL) SERUM - 11/11/18 16:00 ALCOHOL (ETHANOL) SERUM < 10 mg/dL < 10 HAPTOGLOBIN - 11/11/18 16:00 HAPTOGLOBIN 65 mg/dL 30-200 ACETAMINOPHEN (TYLENOL) - 11/11/18 16:00 ACETAMINOPHEN (TYLENOL) 7 mcg/mL 10-30 PROTHROMBIN TIME WITH INR - 11/11/18 16: 00 INTERNATIONAL NORMAL RATIO 1.1 0.9 -1.1 PROTHROMBIN TIME 12.0 sec 10.0-12.8 PARTIAL THROMBOPLASTIN TIME - 11/11/18 1 6:00 PARTIAL THROMBOPLASTIN TIME 27 sec 25 -37 ETHYLENE GLYCOL, QUANTITATIVE - 11/11/18 16:07 ETHYLENE GLYCOL, QUANTITATIVE NONE DETECTED mg/dL None Detect C-PEPTIDE - 11/11/18 16:07 C-PEPTIDE 2.7 ng/mL 1.1-4.4 METHANOL - 11/11/18 16:07 METHANOL Negative % 0.000-0.010 ARTERIAL BLOOD GAS - 11/11/18 16:15 ABG BASE EXCESS -16.2 meq/L -3.0-3.0 ABG BICARBONATE 8.7 meq/L 23.0-28.0 ABG PCO2 18 mm Hg 34-45 ABG PH 7.31 7.35-7.45 ABG PO2 87 mm Hg 75-100 ABG O2 SATURATION 95 % 93-100 HGB HCT - 11/11/18 17:07 MEAN CELL VOLUME 123.0 fl 80.0-100.0 HEMOGLOBIN 5.5 gm/dL 12.0-16.0 HEMATOCRIT 18.2 % 37.0-47.0 AMMONIA (NH3) - 11/11/18 18:20 AMMONIA (NH3) 42 mcmol/L 11-32 PHOSPHORUS - 11/11/18 18:20 PHOSPHORUS 4.6 mg/dL 2.5-4.9 CREATINE KINASE (CK/CPK) - 11/11/18 18:2 0 CREATINE KINASE (CK/CPK) 849 Units/L < 1 93 MAGNESIUM - 11/11/18 18:20 MAGNESIUM 2.1 mg/dL 1.8-2.4 TSH WITH REFLEX TO FT4 - 11/11/18 18:20 THYROID STIM HORMONE (TSH) 2.07 uIU/mL 0 .34-4.82 TROPONIN I - 11/11/18 18:20 TROPONIN I 0.06 ng/mL < 0.07 PREALBUMIN - 11/11/18 18:20 PREALBUMIN 10 mg/dL 20-40 C REACTIVE PROTEIN - 11/11/18 18:20 C REACTIVE PROTEIN 22.5 mg/L < 8.0 GLUCOSE (POC) - 11/11/18 20:08 GLUCOSE (POC) 42 mg/dL 70-99 HGB HCT - 11/11/18 20:34 MEAN CELL VOLUME 110.9 fl 80.0-100.0 HEMOGLOBIN 9.0 gm/dL 12.0-16.0 HEMATOCRIT 28.6 % 37.0-47.0 LACTIC ACID - 11/11/18 20:34 LACTIC ACID 11.9 mmol/L 0.5-2.0 RENAL FUNCTION PANEL - 11/11/18 20:34 POTASSIUM 5.8 mmol/L 3.5-5.3 EST GFR (MDRD) 38 mL/min > 59 ANION GAP 21 mmol/L 5-15 EST CrCl (CG) 36 mL/min > 59 GLUCOSE 54 mg/dL 70-99 CALCIUM 8.4 mg/dL 8.5-10.1 BLOOD UREA NITROGEN 11 mg/dL 7-20 CREATININE 1.4 mg/dL 0.6-1.0 SODIUM 136 mmol/L 135-148 CHLORIDE 105 mmol/L 98-110 CARBON DIOXIDE 10 mmol/L 21-32 ALBUMIN 1.7 gm/dL 3.4-5.0 PHOSPHORUS 4.8 mg/dL 2.5-4.9 LACTATE DEHYDROGENASE (LDH/LD) - 9 20:34 LACTATE DEHYDROGENASE (LDH/LD) 541 Units/L 81-234 B-TYPE NATRIURETIC PEPTIDE - 11/11/18 20 :34 B-TYPE NATRIURETIC PEPTIDE 554 pg/mL < 1 00 HEMOGLOBIN A1C - 11/11/18 20:34 HEMOGLOBIN A1C 4.7 % < 5.7 HIV - 11/11/18 20:34 AB HIV 1 2 NEGATIVE NEGATIVE HIV 1 P24 AG NEGATIVE NEGATIVE GLUCOSE (POC) - 11/11/18 21:00 GLUCOSE (POC) 108 mg/dL 70-99 GLUCOSE (POC) - 11/11/18 22:19 GLUCOSE (POC) 110 mg/dL 70-99 UR SODIUM - 11/12/18 00:04 UR SODIUM COMMENT RANDOM UR SODIUM LEVEL 11 mmol/L 20-40 UR CREATININE - 11/12/18 00:04 UR CREATININE COMMENT RANDOM UR CREATININE LEVEL 107.0 mg/dL 44-467 GLUCOSE (POC) - 11/12/18 01:03 GLUCOSE (POC) 120 mg/dL 70-99 HGB HCT - 11/12/18 01:06 MEAN CELL VOLUME 104.8 fl 80.0-100.0 HEMOGLOBIN 7.8 gm/dL 12.0-16.0 HEMATOCRIT 23.9 % 37.0-47.0 LACTIC ACID - 11/12/18 01:06 LACTIC ACID 5.2 mmol/L 0.5-2.0 RENAL FUNCTION PANEL - 11/12/18 01:06 POTASSIUM 5.5 mmol/L 3.5-5.3 EST GFR (MDRD) 38 mL/min > 59 ANION GAP 15 mmol/L 5-15 EST CrCl (CG) 36 mL/min > 59 GLUCOSE 116 mg/dL 70-99 CALCIUM 8.6 mg/dL 8.5-10.1 BLOOD UREA NITROGEN 13 mg/dL 7-20 CREATININE 1.4 mg/dL 0.6-1.0 SODIUM 135 mmol/L 135-148 CHLORIDE 106 mmol/L 98-110 CARBON DIOXIDE 14 mmol/L 21-32 ALBUMIN 1.4 gm/dL 3.4-5.0 PHOSPHORUS 4.6 mg/dL 2.5-4.9 GLUCOSE (POC) - 11/12/18 04:04 GLUCOSE (POC) 106 mg/dL 70-99 LACTIC ACID - 11/12/18 06:14 LACTIC ACID 4.5 mmol/L 0.5-2.0 CBC W/DIFF - 11/12/18 06:14 BASOPHIL # 0.0 k/cumm 0.0-0.2 BASOPHIL % 0.2 % 0-1 COMMENT REVIEWED EOSINOPHIL # 0.0 k/cumm 0.1-0.5 EOSINOPHIL % 0.1 % 2-4 GRANULOCYTE # 13.8 k/cumm 2.0-9.0 GRANULOCYTE % 76.1 % 50-75 LYMPHOCYTE # 2.7 k/cumm 1.0-4.0 LYMPHOCYTE % 15.0 % 20-30 MEAN CELL HGB 33.0 pg 27.0-33.0 MEAN CELL HGB CONCENTRATION 33.0 g/dL 32 .0-37.0 MEAN CELL VOLUME 100.3 fl 80.0-100.0 MONOCYTE # 1.3 k/cumm 0.1-1.0 MONOCYTE % 7.4 % 4-6 MEAN PLATELET VOLUME 11.8 fl 8.5-10.9 POLYCHROMASIA NOTED RED BLOOD CELL 3.48 m/cumm 4.00-6.00 RED CELL DISTRIBUTION WIDTH 22.2 % 11 .0-15.6 WHITE BLOOD CELL 18.1 k/cumm 5.0-10.0 HEMOGLOBIN 11.5 gm/dL 12.0-16.0 HEMATOCRIT 34.9 % 37.0-47.0 NRBC % 0.1 /100 WBC 0.0-0.0 PLATELET COUNT 285 k/cumm 150-400 IMMATURE GRANULOCYTE % 1.2 % 0.0-0.6 IMMATURE GRANULOCYTE # 0.22 k/cumm 0.00- 0.09 PROTHROMBIN TIME WITH INR - 11/12/18 06: 14 INTERNATIONAL NORMAL RATIO 1.1 0.9 -1.1 PROTHROMBIN TIME 12.0 sec 10.0-12.8 METABOLIC PANEL, COMPREHN - 11/12/18 06: 14 POTASSIUM 5.5 mmol/L 3.5-5.3 EST GFR (MDRD) 42 mL/min > 59 ANION GAP 14 mmol/L 5-15 EST CrCl (CG) 43 mL/min > 59 GLUCOSE 98 mg/dL 70-99 CALCIUM 8.8 mg/dL 8.5-10.1 BLOOD UREA NITROGEN 14 mg/dL 7-20 CREATININE 1.3 mg/dL 0.6-1.0 SODIUM 138 mmol/L 135-148 CHLORIDE 107 mmol/L 98-110 AST/SGOT 192 Units/L 10-37 ALT/SGPT 163 Units/L < 66 CARBON DIOXIDE 17 mmol/L 21-32 TOTAL PROTEIN 5.2 gm/dL 6.4-8.2 ALBUMIN 1.9 gm/dL 3.4-5.0 BILI TOTAL 3.7 mg/dL 0.0-1.0 ALKALINE PHOSPHATASE TOTAL 149 IU/L 45- 117 PHOSPHORUS - 11/12/18 06:14 PHOSPHORUS 4.8 mg/dL 2.5-4.9 MAGNESIUM - 11/12/18 06:14 MAGNESIUM 2.2 mg/dL 1.8-2.4 TROPONIN I - 11/12/18 06:14 TROPONIN I 0.07 ng/mL < 0.07 GLUCOSE (POC) - 11/12/18 08:55 GLUCOSE (POC) 99 mg/dL 70-99 FECAL OCCULT BLOOD - 11/12/18 09:22 Microbiology CLOSTRIDIUM DIFFICILE DNA - 11/12/18 09: 22 Microbiology GASTROINTESTINAL PROFILE - 11/12/18 09:2 2 Microbiology HGB HCT - 11/12/18 09:22 MEAN CELL VOLUME 98.7 fl 80.0-100.0 HEMOGLOBIN 9.8 gm/dL 12.0-16.0 HEMATOCRIT 29.5 % 37.0-47.0 TROPONIN I - 11/12/18 09:22 TROPONIN I 0.07 ng/mL < 0.07 PROTHROMBIN TIME WITH INR - 11/12/18 10: 31 INTERNATIONAL NORMAL RATIO 1.1 0.9 -1.1 PROTHROMBIN TIME 12.1 sec 10.0-12.8 PARTIAL THROMBOPLASTIN TIME - 11/12/18 1 0:31 PARTIAL THROMBOPLASTIN TIME 18 sec 25 -37 ARTERIAL BLOOD GAS - 11/12/18 11:19 ABG BASE EXCESS -8.7 meq/L -3.0-3.0 ABG BICARBONATE 15.7 meq/L 23.0-28.0 ABG PCO2 29 mm Hg 34-45 ABG PH 7.36 7.35-7.45 ABG PO2 80 mm Hg 75-100 ABG O2 SATURATION 95 % 93-100 GLUCOSE (POC) - 11/12/18 12:55 GLUCOSE (POC) 112 mg/dL 70-99 LACTIC ACID - 11/12/18 15:15 LACTIC ACID 1.1 mmol/L 0.5-2.0 CBC - 11/12/18 15:15 MEAN CELL HGB 33.3 pg 27.0-33.0 MEAN CELL HGB CONCENTRATION 32.8 g/dL 32 .0-37.0 MEAN CELL VOLUME 101.5 fl 80.0-100.0 MEAN PLATELET VOLUME 11.6 fl 8.5-10.9 RED BLOOD CELL 1.98 m/cumm 4.00-6.00 RED CELL DISTRIBUTION WIDTH 23.8 % 11 .0-15.6 WHITE BLOOD CELL 10.7 k/cumm 5.0-10.0 HEMOGLOBIN 6.6 gm/dL 12.0-16.0 HEMATOCRIT 20.1 % 37.0-47.0 NRBC % 0.5 /100 WBC 0.0-0.0 PLATELET COUNT 175 k/cumm 150-400 RENAL FUNCTION PANEL - 11/12/18 15:15 POTASSIUM 4.6 mmol/L 3.5-5.3 EST GFR (MDRD) 36 mL/min > 59 ANION GAP 8 mmol/L 5-15 EST CrCl (CG) 38 mL/min > 59 GLUCOSE 112 mg/dL 70-99 CALCIUM 7.9 mg/dL 8.5-10.1 BLOOD UREA NITROGEN 17 mg/dL 7-20 CREATININE 1.5 mg/dL 0.6-1.0 SODIUM 133 mmol/L 135-148 CHLORIDE 107 mmol/L 98-110 CARBON DIOXIDE 18 mmol/L 21-32 ALBUMIN 2.8 gm/dL 3.4-5.0 PHOSPHORUS 4.3 mg/dL 2.5-4.9 TROPONIN I - 11/12/18 15:15 TROPONIN I 0.06 ng/mL < 0.07 LACTIC ACID - 11/12/18 16:01 LACTIC ACID 1.0 mmol/L 0.5-2.0 CBC - 11/12/18 16:02 MEAN CELL HGB 33.0 pg 27.0-33.0 MEAN CELL HGB CONCENTRATION 33.0 g/dL 32 .0-37.0 MEAN CELL VOLUME 100.0 fl 80.0-100.0 MEAN PLATELET VOLUME 11.6 fl 8.5-10.9 RED BLOOD CELL 2.03 m/cumm 4.00-6.00 RED CELL DISTRIBUTION WIDTH 23.6 % 11 .0-15.6 WHITE BLOOD CELL 11.0 k/cumm 5.0-10.0 HEMOGLOBIN 6.7 gm/dL 12.0-16.0 HEMATOCRIT 20.3 % 37.0-47.0 NRBC % 0.5 /100 WBC 0.0-0.0 PLATELET COUNT 187 k/cumm 150-400 RENAL FUNCTION PANEL - 11/12/18 16:02 POTASSIUM 4.6 mmol/L 3.5-5.3 EST GFR (MDRD) 36 mL/min > 59 ANION GAP 13 mmol/L 5-15 EST CrCl (CG) 38 mL/min > 59 GLUCOSE 115 mg/dL 70-99 CALCIUM 8.1 mg/dL 8.5-10.1 BLOOD UREA NITROGEN 17 mg/dL 7-20 CREATININE 1.5 mg/dL 0.6-1.0 SODIUM 135 mmol/L 135-148 CHLORIDE 107 mmol/L 98-110 CARBON DIOXIDE 15 mmol/L 21-32 ALBUMIN 2.8 gm/dL 3.4-5.0 PHOSPHORUS 4.2 mg/dL 2.5-4.9 CBC - 11/12/18 22:52 MEAN CELL HGB 31.7 pg 27.0-33.0 MEAN CELL HGB CONCENTRATION 33.1 g/dL 32 .0-37.0 MEAN CELL VOLUME 95.7 fl 80.0-100.0 MEAN PLATELET VOLUME 11.3 fl 8.5-10.9 RED BLOOD CELL 2.81 m/cumm 4.00-6.00 RED CELL DISTRIBUTION WIDTH 22.3 % 11 .0-15.6 WHITE BLOOD CELL 10.3 k/cumm 5.0-10.0 HEMOGLOBIN 8.9 gm/dL 12.0-16.0 HEMATOCRIT 26.9 % 37.0-47.0 NRBC % 1.0 /100 WBC 0.0-0.0 PLATELET COUNT 170 k/cumm 150-400 RENAL FUNCTION PANEL - 11/12/18 22:52 POTASSIUM 4.5 mmol/L 3.5-5.3 EST GFR (MDRD) 36 mL/min > 59 ANION GAP 13 mmol/L 5-15 EST CrCl (CG) 38 mL/min > 59 GLUCOSE 119 mg/dL 70-99 CALCIUM 8.2 mg/dL 8.5-10.1 BLOOD UREA NITROGEN 18 mg/dL 7-20 CREATININE 1.5 mg/dL 0.6-1.0 SODIUM 136 mmol/L 135-148 CHLORIDE 107 mmol/L 98-110 CARBON DIOXIDE 16 mmol/L 21-32 ALBUMIN 2.9 gm/dL 3.4-5.0 PHOSPHORUS 3.9 mg/dL 2.5-4.9 LACTIC ACID - 11/13/18 02:19 LACTIC ACID 1.2 mmol/L 0.5-2.0 CBC - 11/13/18 02:19 MEAN CELL HGB 31.9 pg 27.0-33.0 MEAN CELL HGB CONCENTRATION 33.3 g/dL 32 .0-37.0 MEAN CELL VOLUME 95.8 fl 80.0-100.0 MEAN PLATELET VOLUME 11.3 fl 8.5-10.9 RED BLOOD CELL 2.85 m/cumm 4.00-6.00 RED CELL DISTRIBUTION WIDTH 22.8 % 11 .0-15.6 WHITE BLOOD CELL 10.2 k/cumm 5.0-10.0 HEMOGLOBIN 9.1 gm/dL 12.0-16.0 HEMATOCRIT 27.3 % 37.0-47.0 NRBC % 1.2 /100 WBC 0.0-0.0 PLATELET COUNT 154 k/cumm 150-400 RENAL FUNCTION PANEL - 11/13/18 02:19 POTASSIUM 4.3 mmol/L 3.5-5.3 EST GFR (MDRD) 38 mL/min > 59 ANION GAP 13 mmol/L 5-15 EST CrCl (CG) 40 mL/min > 59 GLUCOSE 114 mg/dL 70-99 CALCIUM 8.0 mg/dL 8.5-10.1 BLOOD UREA NITROGEN 17 mg/dL 7-20 CREATININE 1.4 mg/dL 0.6-1.0 SODIUM 138 mmol/L 135-148 CHLORIDE 108 mmol/L 98-110 CARBON DIOXIDE 17 mmol/L 21-32 ALBUMIN 2.8 gm/dL 3.4-5.0 PHOSPHORUS 3.6 mg/dL 2.5-4.9 LACTIC ACID - 11/13/18 06:20 LACTIC ACID 1.1 mmol/L 0.5-2.0 CBC - 11/13/18 06:20 MEAN CELL HGB 31.9 pg 27.0-33.0 MEAN CELL HGB CONCENTRATION 33.1 g/dL 32 .0-37.0 MEAN CELL VOLUME 96.4 fl 80.0-100.0 MEAN PLATELET VOLUME 11.1 fl 8.5-10.9 RED BLOOD CELL 2.79 m/cumm 4.00-6.00 RED CELL DISTRIBUTION WIDTH 23.0 % 11 .0-15.6 WHITE BLOOD CELL 9.9 k/cumm 5.0-10.0 HEMOGLOBIN 8.9 gm/dL 12.0-16.0 HEMATOCRIT 26.9 % 37.0-47.0 NRBC % 1.6 /100 WBC 0.0-0.0 PLATELET COUNT 154 k/cumm 150-400 RENAL FUNCTION PANEL - 11/13/18 06:20 POTASSIUM 4.1 mmol/L 3.5-5.3 EST GFR (MDRD) 42 mL/min > 59 ANION GAP 15 mmol/L 5-15 EST CrCl (CG) 43 mL/min > 59 GLUCOSE 116 mg/dL 70-99 CALCIUM 7.8 mg/dL 8.5-10.1 BLOOD UREA NITROGEN 17 mg/dL 7-20 CREATININE 1.3 mg/dL 0.6-1.0 SODIUM 139 mmol/L 135-148 CHLORIDE 108 mmol/L 98-110 CARBON DIOXIDE 16 mmol/L 21-32 ALBUMIN 2.6 gm/dL 3.4-5.0 PHOSPHORUS 3.2 mg/dL 2.5-4.9 PROTHROMBIN TIME WITH INR - 11/13/18 08: 16 INTERNATIONAL NORMAL RATIO 1.1 0.9 -1.1 PROTHROMBIN TIME 12.5 sec 10.0-12.8 PARTIAL THROMBOPLASTIN TIME - 11/13/18 0 8:16 PARTIAL THROMBOPLASTIN TIME 29 sec 25 -37 AMMONIA (NH3) - 11/13/18 08:16 AMMONIA (NH3) 18 mcmol/L 11-32 RENAL FUNCTION PANEL - 11/13/18 08:16 POTASSIUM 4.1 mmol/L 3.5-5.3 EST GFR (MDRD) 46 mL/min > 59 ANION GAP 12 mmol/L 5-15 EST CrCl (CG) 47 mL/min > 59 GLUCOSE 114 mg/dL 70-99 CALCIUM 8.1 mg/dL 8.5-10.1 BLOOD UREA NITROGEN 17 mg/dL 7-20 CREATININE 1.2 mg/dL 0.6-1.0 SODIUM 142 mmol/L 135-148 CHLORIDE 113 mmol/L 98-110 CARBON DIOXIDE 17 mmol/L 21-32 ALBUMIN 2.7 gm/dL 3.4-5.0 PHOSPHORUS 3.0 mg/dL 2.5-4.9 HEPATIC FUNCTION PANEL - 11/13/18 08:16 BILI UNCONJUGATED 1.4 mg/dL 0.0-0.7 AST/SGOT 86 Units/L 10-37 ALT/SGPT 73 Units/L < 66 TOTAL PROTEIN 4.8 gm/dL 6.4-8.2 ALBUMIN 2.6 gm/dL 3.4-5.0 BILI TOTAL 3.4 mg/dL 0.0-1.0 ALKALINE PHOSPHATASE TOTAL 84 IU/L 45- 117 BILI CONJUGATED 2.0 mg/dL 0.0-0.3 GLUCOSE (POC) - 11/13/18 12:00 GLUCOSE (POC) 114 mg/dL 70-99 LACTIC ACID - 11/13/18 14:37 LACTIC ACID 1.0 mmol/L 0.5-2.0 CBC - 11/13/18 14:37 MEAN CELL HGB 32.4 pg 27.0-33.0 MEAN CELL HGB CONCENTRATION 33.7 g/dL 32 .0-37.0 MEAN CELL VOLUME 96.0 fl 80.0-100.0 MEAN PLATELET VOLUME 11.2 fl 8.5-10.9 RED BLOOD CELL 2.72 m/cumm 4.00-6.00 RED CELL DISTRIBUTION WIDTH 23.5 % 11 .0-15.6 WHITE BLOOD CELL 9.0 k/cumm 5.0-10.0 HEMOGLOBIN 8.8 gm/dL 12.0-16.0 HEMATOCRIT 26.1 % 37.0-47.0 NRBC % 1.9 /100 WBC 0.0-0.0 PLATELET COUNT 146 k/cumm 150-400 IMMATURE PLATELET FRACTION 8.1 % 1.1 -6.1 RENAL FUNCTION PANEL - 11/13/18 14:37 POTASSIUM 3.7 mmol/L 3.5-5.3 EST GFR (MDRD) 42 mL/min > 59 ANION GAP 15 mmol/L 5-15 EST CrCl (CG) 43 mL/min > 59 GLUCOSE 123 mg/dL 70-99 CALCIUM 8.2 mg/dL 8.5-10.1 BLOOD UREA NITROGEN 15 mg/dL 7-20 CREATININE 1.3 mg/dL 0.6-1.0 SODIUM 142 mmol/L 135-148 CHLORIDE 108 mmol/L 98-110 CARBON DIOXIDE 19 mmol/L 21-32 ALBUMIN 3.2 gm/dL 3.4-5.0 PHOSPHORUS 3.0 mg/dL 2.5-4.9 CBC - 11/13/18 20:33 MEAN CELL HGB 31.8 pg 27.0-33.0 MEAN CELL HGB CONCENTRATION 33.5 g/dL 32 .0-37.0 MEAN CELL VOLUME 95.2 fl 80.0-100.0 MEAN PLATELET VOLUME 11.2 fl 8.5-10.9 RED BLOOD CELL 2.92 m/cumm 4.00-6.00 RED CELL DISTRIBUTION WIDTH 23.2 % 11 .0-15.6 WHITE BLOOD CELL 8.6 k/cumm 5.0-10.0 HEMOGLOBIN 9.3 gm/dL 12.0-16.0 HEMATOCRIT 27.8 % 37.0-47.0 NRBC % 1.7 /100 WBC 0.0-0.0 PLATELET COUNT 136 k/cumm 150-400 IMMATURE PLATELET FRACTION 8.7 % 1.1 -6.1 RENAL FUNCTION PANEL - 11/13/18 20:33 POTASSIUM 3.7 mmol/L 3.5-5.3 EST GFR (MDRD) 46 mL/min > 59 ANION GAP 14 mmol/L 5-15 EST CrCl (CG) 47 mL/min > 59 GLUCOSE 125 mg/dL 70-99 CALCIUM 8.6 mg/dL 8.5-10.1 BLOOD UREA NITROGEN 14 mg/dL 7-20 CREATININE 1.2 mg/dL 0.6-1.0 SODIUM 144 mmol/L 135-148 CHLORIDE 108 mmol/L 98-110 CARBON DIOXIDE 22 mmol/L 21-32 ALBUMIN 3.1 gm/dL 3.4-5.0 PHOSPHORUS 2.5 mg/dL 2.5-4.9 CBC - 11/14/18 03:16 MEAN CELL HGB 31.8 pg 27.0-33.0 MEAN CELL HGB CONCENTRATION 33.0 g/dL 32 .0-37.0 MEAN CELL VOLUME 96.5 fl 80.0-100.0 MEAN PLATELET VOLUME 11.7 fl 8.5-10.9 RED BLOOD CELL 2.86 m/cumm 4.00-6.00 RED CELL DISTRIBUTION WIDTH 23.3 % 11 .0-15.6 WHITE BLOOD CELL 7.7 k/cumm 5.0-10.0 HEMOGLOBIN 9.1 gm/dL 12.0-16.0 HEMATOCRIT 27.6 % 37.0-47.0 NRBC % 1.7 /100 WBC 0.0-0.0 PLATELET COUNT 128 k/cumm 150-400 IMMATURE PLATELET FRACTION 8.9 % 1.1 -6.1 RENAL FUNCTION PANEL - 11/14/18 03:16 POTASSIUM 3.2 mmol/L 3.5-5.3 EST GFR (MDRD) 46 mL/min > 59 ANION GAP 12 mmol/L 5-15 EST CrCl (CG) 47 mL/min > 59 GLUCOSE 118 mg/dL 70-99 CALCIUM 8.1 mg/dL 8.5-10.1 BLOOD UREA NITROGEN 12 mg/dL 7-20 CREATININE 1.2 mg/dL 0.6-1.0 SODIUM 146 mmol/L 135-148 CHLORIDE 110 mmol/L 98-110 CARBON DIOXIDE 24 mmol/L 21-32 ALBUMIN 2.8 gm/dL 3.4-5.0 PHOSPHORUS 2.4 mg/dL 2.5-4.9 CBC - 11/14/18 05:31 MEAN CELL HGB 31.9 pg 27.0-33.0 MEAN CELL HGB CONCENTRATION 33.1 g/dL 32 .0-37.0 MEAN CELL VOLUME 96.5 fl 80.0-100.0 MEAN PLATELET VOLUME 11.4 fl 8.5-10.9 RED BLOOD CELL 2.88 m/cumm 4.00-6.00 RED CELL DISTRIBUTION WIDTH 23.1 % 11 .0-15.6 WHITE BLOOD CELL 7.5 k/cumm 5.0-10.0 HEMOGLOBIN 9.2 gm/dL 12.0-16.0 HEMATOCRIT 27.8 % 37.0-47.0 NRBC % 1.9 /100 WBC 0.0-0.0 PLATELET COUNT 136 k/cumm 150-400 IMMATURE PLATELET FRACTION 8.2 % 1.1 -6.1 METABOLIC PANEL, COMPREHN - 11/14/18 05: 31 POTASSIUM 3.0 mmol/L 3.5-5.3 EST GFR (MDRD) 46 mL/min > 59 ANION GAP 12 mmol/L 5-15 EST CrCl (CG) 47 mL/min > 59 GLUCOSE 113 mg/dL 70-99 CALCIUM 8.2 mg/dL 8.5-10.1 BLOOD UREA NITROGEN 11 mg/dL 7-20 CREATININE 1.2 mg/dL 0.6-1.0 SODIUM 146 mmol/L 135-148 CHLORIDE 110 mmol/L 98-110 AST/SGOT 60 Units/L 10-37 ALT/SGPT 56 Units/L < 66 CARBON DIOXIDE 24 mmol/L 21-32 TOTAL PROTEIN 5.1 gm/dL 6.4-8.2 ALBUMIN 2.7 gm/dL 3.4-5.0 BILI TOTAL 2.6 mg/dL 0.0-1.0 ALKALINE PHOSPHATASE TOTAL 74 IU/L 45- 117 PHOSPHORUS - 11/14/18 05:31 PHOSPHORUS 2.1 mg/dL 2.5-4.9 MAGNESIUM - 11/14/18 05:31 MAGNESIUM 1.5 mg/dL 1.8-2.4 GLUCOSE (POC) - 11/14/18 12:01 GLUCOSE (POC) 128 mg/dL 70-99 CBC - 11/14/18 14:33 MEAN CELL HGB 31.9 pg 27.0-33.0 MEAN CELL HGB CONCENTRATION 33.2 g/dL 32 .0-37.0 MEAN CELL VOLUME 96.2 fl 80.0-100.0 MEAN PLATELET VOLUME 11.7 fl 8.5-10.9 RED BLOOD CELL 2.88 m/cumm 4.00-6.00 RED CELL DISTRIBUTION WIDTH 22.8 % 11 .0-15.6 WHITE BLOOD CELL 6.9 k/cumm 5.0-10.0 HEMOGLOBIN 9.2 gm/dL 12.0-16.0 HEMATOCRIT 27.7 % 37.0-47.0 NRBC % 1.5 /100 WBC 0.0-0.0 PLATELET COUNT 134 k/cumm 150-400 IMMATURE PLATELET FRACTION 9.1 % 1.1 -6.1 RENAL FUNCTION PANEL - 11/14/18 14:33 POTASSIUM 3.2 mmol/L 3.5-5.3 EST GFR (MDRD) 51 mL/min > 59 ANION GAP 10 mmol/L 5-15 EST CrCl (CG) 46 mL/min > 59 GLUCOSE 170 mg/dL 70-99 CALCIUM 8.0 mg/dL 8.5-10.1 BLOOD UREA NITROGEN 9 mg/dL 7-20 CREATININE 1.1 mg/dL 0.6-1.0 SODIUM 146 mmol/L 135-148 CHLORIDE 107 mmol/L 98-110 CARBON DIOXIDE 29 mmol/L 21-32 ALBUMIN 3.0 gm/dL 3.4-5.0 PHOSPHORUS 4.2 mg/dL 2.5-4.9 GLUCOSE (POC) - 11/14/18 17:35 GLUCOSE (POC) 133 mg/dL 70-99 CBC - 11/15/18 04:46 MEAN CELL HGB 32.4 pg 27.0-33.0 MEAN CELL HGB CONCENTRATION 35.0 g/dL 32 .0-37.0 MEAN CELL VOLUME 92.7 fl 80.0-100.0 MEAN PLATELET VOLUME 11.9 fl 8.5-10.9 RED BLOOD CELL 2.87 m/cumm 4.00-6.00 RED CELL DISTRIBUTION WIDTH 21.7 % 11 .0-15.6 WHITE BLOOD CELL 6.0 k/cumm 5.0-10.0 HEMOGLOBIN 9.3 gm/dL 12.0-16.0 HEMATOCRIT 26.6 % 37.0-47.0 NRBC % 0.7 /100 WBC 0.0-0.0 PLATELET COUNT 134 k/cumm 150-400 IMMATURE PLATELET FRACTION 9.2 % 1.1 -6.1 METABOLIC PANEL, COMPREHN - 11/15/18 04: 46 POTASSIUM 2.5 mmol/L 3.5-5.3 EST GFR (MDRD) > 60 mL/min > 59 ANION GAP 8 mmol/L 5-15 EST CrCl (CG) > 60 mL/min > 59 GLUCOSE 118 mg/dL 70-99 CALCIUM 8.0 mg/dL 8.5-10.1 BLOOD UREA NITROGEN 6 mg/dL 7-20 CREATININE 0.8 mg/dL 0.6-1.0 SODIUM 145 mmol/L 135-148 CHLORIDE 102 mmol/L 98-110 AST/SGOT 48 Units/L 10-37 ALT/SGPT 51 Units/L < 66 CARBON DIOXIDE 35 mmol/L 21-32 TOTAL PROTEIN 4.9 gm/dL 6.4-8.2 ALBUMIN 2.6 gm/dL 3.4-5.0 BILI TOTAL 2.1 mg/dL 0.0-1.0 ALKALINE PHOSPHATASE TOTAL 71 IU/L 45- 117 MAGNESIUM - 11/15/18 04:46 MAGNESIUM 1.7 mg/dL 1.8-2.4 GLUCOSE (POC) - 11/15/18 08:14 GLUCOSE (POC) 108 mg/dL 70-99 POTASSIUM - 11/15/18 11:22 POTASSIUM 3.1 mmol/L 3.5-5.3 GLUCOSE (POC) - 11/15/18 12:15 GLUCOSE (POC) 134 mg/dL 70-99 AMMONIA (NH3) - 11/15/18 14:50 AMMONIA (NH3) 21 mcmol/L 11-32 RENAL FUNCTION PANEL - 11/15/18 14:50 POTASSIUM 3.3 mmol/L 3.5-5.3 EST GFR (MDRD) > 60 mL/min > 59 ANION GAP 8 mmol/L 5-15 EST CrCl (CG) > 60 mL/min > 59 GLUCOSE 115 mg/dL 70-99 CALCIUM 7.9 mg/dL 8.5-10.1 BLOOD UREA NITROGEN 4 mg/dL 7-20 CREATININE 0.7 mg/dL 0.6-1.0 SODIUM 143 mmol/L 135-148 CHLORIDE 98 mmol/L 98-110 CARBON DIOXIDE 37 mmol/L 21-32 ALBUMIN 2.7 gm/dL 3.4-5.0 PHOSPHORUS 2.3 mg/dL 2.5-4.9 GLUCOSE (POC) - 11/15/18 21:48 GLUCOSE (POC) 115 mg/dL GLUCOSE (POC) - 11/16/18 00:35 GLUCOSE (POC) 191 mg/dL GLUCOSE (POC) - 11/16/18 05:33 GLUCOSE (POC) 159 mg/dL GLUCOSE (POC) - 11/16/18 12:02 GLUCOSE (POC) 98 mg/dL GLUCOSE (POC) - 11/16/18 17:10 GLUCOSE (POC) 128 mg/dL 70- RENAL FUNCTION PANEL - 11/16/18 18:34 POTASSIUM 3.0 mmol/L 3.5-5.3 EST GFR (MDRD) > 60 mL/min > 59 ANION GAP 10 mmol/L 5-15 EST CrCl (CG) > 60 mL/min > 59 GLUCOSE 105 mg/dL 99 CALCIUM 7.8 mg/dL 8.5-10.1 BLOOD UREA NITROGEN 6 mg/dL 7-20 CREATININE 0.8 mg/dL 0.6-1.0 SODIUM 141 mmol/L 135-148 CHLORIDE 94 mmol/L 98-110 CARBON DIOXIDE 37 mmol/L 21-32 ALBUMIN 2.5 gm/dL 3.4-5.0 PHOSPHORUS 1.9 mg/dL 2.5-4.9 GLUCOSE (POC) - 11/16/18 22:01 GLUCOSE (POC) 109 mg/dL - CBC - 11/17/18 04:38 MEAN CELL HGB 32.4 pg 27.0-33.0 MEAN CELL HGB CONCENTRATION 33.0 g/dL 32 .0-37.0 MEAN CELL VOLUME 98.1 fl 80.0-100.0 MEAN PLATELET VOLUME 11.9 fl 8.5-10.9 RED BLOOD CELL 3.09 m/cumm 4.00-6.00 RED CELL DISTRIBUTION WIDTH 20.6 % 11 .0-15.6 WHITE BLOOD CELL 6.2 k/cumm 5.0-10.0 HEMOGLOBIN 10.0 gm/dL 12.0-16.0 HEMATOCRIT 30.3 % 37.0-47.0 NRBC % 0.0 /100 WBC 0.0-0.0 PLATELET COUNT 169 k/cumm 150-400 RENAL FUNCTION PANEL - 11/17/18 04:38 POTASSIUM 2.7 mmol/L 3.5-5.3 EST GFR (MDRD) > 60 mL/min > 59 ANION GAP 9 mmol/L 5-15 EST CrCl (CG) > 60 mL/min > 59 GLUCOSE 93 mg/dL 70-99 CALCIUM 7.7 mg/dL 8.5-10.1 BLOOD UREA NITROGEN 7 mg/dL 7-20 CREATININE 0.7 mg/dL 0.6-1.0 SODIUM 139 mmol/L 135-148 CHLORIDE 93 mmol/L 98-110 CARBON DIOXIDE 37 mmol/L 21- ALBUMIN 2.3 gm/dL 3.4-5.0 PHOSPHORUS 2.1 mg/dL 2.5-4.9 MAGNESIUM - 11/17/18 04:38 MAGNESIUM 1.8 mg/dL 1.8-2.4 GLUCOSE (POC) - 11/17/18 20:11 GLUCOSE (POC) 129 mg/dL -99 GLUCOSE (POC) - 11/18/18 05:19 GLUCOSE (POC) 92 mg/dL 70-99 CBC - 11/18/18 07:11 MEAN CELL HGB 33.2 pg 27.0-33.0 MEAN CELL HGB CONCENTRATION 34.0 g/dL 32 .0-37.0 MEAN CELL VOLUME 97.6 fl 80.0-100.0 MEAN PLATELET VOLUME 11.8 fl 8.5-10.9 RED BLOOD CELL 2.92 m/cumm 4.00-6.00 RED CELL DISTRIBUTION WIDTH 20.1 % 11 .0-15.6 WHITE BLOOD CELL 6.8 k/cumm 5.0-10.0 HEMOGLOBIN 9.7 gm/dL 12.0-16.0 HEMATOCRIT 28.5 % 37.0-47.0 NRBC % 0.0 /100 WBC 0.0-0.0 PLATELET COUNT 217 k/cumm 150-400 RENAL FUNCTION PANEL - 11/18/18 07:11 POTASSIUM 3.1 mmol/L 3.5-5.3 EST GFR (MDRD) > 60 mL/min > 59 ANION GAP 9 mmol/L 5-15 EST CrCl (CG) > 60 mL/min > 59 GLUCOSE 92 mg/dL 70-99 CALCIUM 7.8 mg/dL 8.5-10.1 BLOOD UREA NITROGEN 7 mg/dL 7-20 CREATININE 0.6 mg/dL 0.6-1.0 SODIUM 140 mmol/L 135-148 CHLORIDE 96 mmol/L 98-110 CARBON DIOXIDE 35 mmol/L 21-32 ALBUMIN 2.3 gm/dL 3.4-5.0 PHOSPHORUS 2.0 mg/dL 2.5-4.9 GLUCOSE (POC) - 11/18/18 11:41 GLUCOSE (POC) 81 mg/dL 70-99 GLUCOSE (POC) - 11/18/18 17:55 GLUCOSE (POC) 92 mg/dL 70-99 GLUCOSE (POC) - 11/18/18 20:17 GLUCOSE (POC) 94 mg/dL 70-99 RENAL FUNCTION PANEL - 11/19/18 05:52 POTASSIUM 3.8 mmol/L 3.5-5.3 EST GFR (MDRD) > 60 mL/min > 59 ANION GAP 6 mmol/L 5-15 EST CrCl (CG) > 60 mL/min > 59 GLUCOSE 89 mg/dL 70-99 CALCIUM 8.0 mg/dL 8.5-10.1 BLOOD UREA NITROGEN 9 mg/dL 7-20 CREATININE 0.7 mg/dL 0.6-1.0 SODIUM 138 mmol/L 135-148 CHLORIDE 100 mmol/L 98-110 CARBON DIOXIDE 32 mmol/L 21-32 ALBUMIN 2.3 gm/dL 3.4-5.0 PHOSPHORUS 2.3 mg/dL 2.5-4.9 MAGNESIUM - 11/19/18 05:52 MAGNESIUM 2.1 mg/dL 1.8-2.4 GLUCOSE (POC) - 11/19/18 06:40 GLUCOSE (POC) 93 mg/dL - GLUCOSE (POC) - 11/19/18 11:45 GLUCOSE (POC) 95 mg/dL 70-99 CBC - 02/07/19 22:26 MEAN CELL HGB 35.6 pg 27.0-33.0 MEAN CELL HGB CONCENTRATION 37.1 g/dL 32 .0-37.0 MEAN CELL VOLUME 96.1 fl 80.0-100.0 MEAN PLATELET VOLUME 10.3 fl 8.5-10.9 RED BLOOD CELL 3.34 m/cumm 4.00-6.00 RED CELL DISTRIBUTION WIDTH 15.0 % 11 .0-15.6 WHITE BLOOD CELL 7.3 k/cumm 5.0-10.0 HEMOGLOBIN 11.9 gm/dL 12.0-16.0 HEMATOCRIT 32.1 % 37.0-47.0 NRBC % 0.0 /100 WBC 0.0-0.0 PLATELET COUNT 294 k/cumm 150-400 AMMONIA (NH3) - 02/07/19 22:26 AMMONIA (NH3) 15 mcmol/L 11-32 METABOLIC PANEL, [facility] - 02/07/19 22: 26 POTASSIUM 1.4 mmol/L 3.5-5.3 EST GFR (MDRD) 49 mL/min > 59 ANION GAP 19 mmol/L 5-15 EST CrCl (CG) 44 mL/min > 59 GLUCOSE 98 mg/dL 70-99 CALCIUM 8.0 mg/dL 8.5-10.1 BLOOD UREA NITROGEN 4 mg/dL 7-20 CREATININE 1.14 mg/dL 0.60-1.00 SODIUM 136 mmol/L 135-148 CHLORIDE 92 mmol/L 98-110 AST/SGOT 58 Units/L 10-37 ALT/SGPT 28 Units/L < 66 CARBON DIOXIDE 25 mmol/L 21-32 TOTAL PROTEIN 5.5 gm/dL 6.4-8.2 ALBUMIN 2.0 gm/dL 3.4-5.0 BILI TOTAL 1.5 mg/dL 0.0-1.0 ALKALINE PHOSPHATASE TOTAL 112 IU/L 45- 117 TROPONIN I BEDSIDE - 02/07/19 22:35 METHOD Bedside TROPONIN I < 0.04 ng/mL < 0.11 URINALYSIS, ROUTINE - 02/07/19 23:03 UA LEUKOCYTE ESTERASE DIPSTICK TRACE NEGATIVE UA NITRITE DIPSTICK NEGATIVE NEGATIVE UA PROTEIN DIPSTICK NEGATIVE NEGATIVE UA GLUCOSE DIPSTICK NEGATIVE NEGATIVE UA KETONE DIPSTICK NEGATIVE NEGATIVE UA UROBILINOGEN DIPSTICK [place] L UA BILIRUBIN DIPSTICK NEGATIVE NEGATIVE UA BLOOD DIPSTICK NEGATIVE NEGATIVE UA SPECIFIC GRAVITY 1.010 1.015-1.02 5 UR PH 7.0 5.0-7.0 UA MICROSCOPIC - 02/07/19 23:03 UA BACTERIA 1+ NEGATIVE UA EPITHELIAL CELLS 2+ epi/hpf 0 - 1+ UA RBC 0 rbc/hpf 0 - 3 UA VOLUME FOR EXAM 10.0 mL (12mL STD) UA WBC 0-1 wbc/hpf 0 - 5 LACTIC ACID - 02/08/19 00:02 LACTIC ACID 9.9 mmol/L 0.5-2.0 MAGNESIUM - 02/08/19 00:02 MAGNESIUM 1.6 mg/dL 1.8-2.4 LIPASE - 02/08/19 00:02 LIPASE 66 Units/L 73-393 CBC W/DIFF - 02/08/19 03:53 BASOPHIL # 0.0 k/cumm 0.0-0.2 BASOPHIL % 0.9 % 0-1 EOSINOPHIL # 0.1 k/cumm 0.1-0.5 EOSINOPHIL % 2.0 % 2-4 GRANULOCYTE # 2.1 k/cumm 2.0-9.0 GRANULOCYTE % 46.6 % 50-75 LYMPHOCYTE # 2.0 k/cumm 1.0-4.0 LYMPHOCYTE % 43.5 % 20-30 MEAN CELL HGB 36.1 pg 27.0-33.0 MEAN CELL HGB CONCENTRATION 37.3 g/dL 32 .0-37.0 MEAN CELL VOLUME 96.8 fl 80.0-100.0 MONOCYTE # 0.3 k/cumm 0.1-1.0 MONOCYTE % 6.8 % 4-6 MEAN PLATELET VOLUME 10.3 fl 8.5-10.9 RED BLOOD CELL 2.77 m/cumm 4.00-6.00 RED CELL DISTRIBUTION WIDTH 14.9 % 11 .0-15.6 WHITE BLOOD CELL 4.6 k/cumm 5.0-10.0 HEMOGLOBIN 10.0 gm/dL 12.0-16.0 HEMATOCRIT 26.8 % 37.0-47.0 NRBC % 0.0 /100 WBC 0.0-0.0 PLATELET COUNT 256 k/cumm 150-400 IMMATURE GRANULOCYTE % 0.2 % 0.0-0.6 IMMATURE GRANULOCYTE # 0.01 k/cumm 0.00- 0.09 RENAL FUNCTION PANEL - 02/08/19 03:53 POTASSIUM 1.8 mmol/L 3.5-5.3 EST GFR (MDRD) 45 mL/min > 59 ANION GAP 14 mmol/L 5-15 EST CrCl (CG) 41 mL/min > 59 GLUCOSE 109 mg/dL 70-99 CALCIUM 7.3 mg/dL 8.5-10.1 BLOOD UREA NITROGEN 4 mg/dL 7-20 CREATININE 1.23 mg/dL 0.60-1.00 SODIUM 138 mmol/L 135-148 CHLORIDE 97 mmol/L 98-110 CARBON DIOXIDE 27 mmol/L 21-32 ALBUMIN 1.7 gm/dL 3.4-5.0 PHOSPHORUS 2.9 mg/dL 2.5-4.9 LACTIC ACID - 02/08/19 09:30 LACTIC ACID 5.8 mmol/L 0.5-2.0 POTASSIUM - 02/08/19 15:32 POTASSIUM 2.6 mmol/L 3.5-5.3 CBC - 02/09/19 05:11 MEAN CELL HGB 35.5 pg 27.0-33.0 MEAN CELL HGB CONCENTRATION 35.7 g/dL 32 .0-37.0 MEAN CELL VOLUME 99.6 fl 80.0-100.0 MEAN PLATELET VOLUME 10.5 fl 8.5-10.9 RED BLOOD CELL 2.45 m/cumm 4.00-6.00 RED CELL DISTRIBUTION WIDTH 15.7 % 11 .0-15.6 WHITE BLOOD CELL 4.2 k/cumm 5.0-10.0 HEMOGLOBIN 8.7 gm/dL 12.0-16.0 HEMATOCRIT 24.4 % 37.0-47.0 NRBC % 0.0 /100 WBC 0.0-0.0 PLATELET COUNT 212 k/cumm 150-400 METABOLIC PANEL, BASIC - 02/09/19 05:11 POTASSIUM 3.0 mmol/L 3.5-5.3 EST GFR (MDRD) > 60 mL/min > 59 ANION GAP 9 mmol/L 5-15 EST CrCl (CG) > 60 mL/min > 59 GLUCOSE 115 mg/dL 70-99 CALCIUM 6.2 mg/dL 8.5-10.1 BLOOD UREA NITROGEN 4 mg/dL 7-20 CREATININE 0.80 mg/dL 0.60-1.00 SODIUM 141 mmol/L 135-148 CHLORIDE 108 mmol/L 98-110 CARBON DIOXIDE 24 mmol/L 21-32 PHOSPHORUS - 02/09/19 05:11 PHOSPHORUS 1.8 mg/dL 2.5-4.9 MAGNESIUM - 02/09/19 05:11 MAGNESIUM 2.1 mg/dL 1.8-2.4 CBC - 02/10/19 04:49 MEAN CELL HGB 36.2 pg 27.0-33.0 MEAN CELL HGB CONCENTRATION 36.1 g/dL 32 .0-37.0 MEAN CELL VOLUME 100.4 fl 80.0-100.0 MEAN PLATELET VOLUME 11.3 fl 8.5-10.9 RED BLOOD CELL 2.79 m/cumm 4.00-6.00 RED CELL DISTRIBUTION WIDTH 16.5 % 11 .0-15.6 WHITE BLOOD CELL 6.4 k/cumm 5.0-10.0 HEMOGLOBIN 10.1 gm/dL 12.0-16.0 HEMATOCRIT 28.0 % 37.0-47.0 NRBC % 0.0 /100 WBC 0.0-0.0 PLATELET COUNT 218 k/cumm 150-400 METABOLIC PANEL, BASIC - 02/10/19 04:49 POTASSIUM 4.1 mmol/L 3.5-5.3 EST GFR (MDRD) > 60 mL/min > 59 ANION GAP 10 mmol/L 5-15 EST CrCl (CG) > 60 mL/min > 59 GLUCOSE 85 mg/dL 70-99 CALCIUM 7.1 mg/dL 8.5-10.1 BLOOD UREA NITROGEN 4 mg/dL 7-20 CREATININE 0.80 mg/dL 0.60-1.00 SODIUM 139 mmol/L 135-148 CHLORIDE 109 mmol/L 98-110 CARBON DIOXIDE 20 mmol/L 21-32 HEPATIC FUNCTION PANEL - 02/10/19 04:49 BILI UNCONJUGATED 0.5 mg/dL 0.0-0.7 AST/SGOT 150 Units/L 10-37 ALT/SGPT 43 Units/L < 66 TOTAL PROTEIN 4.6 gm/dL 6.4-8.2 ALBUMIN 1.7 gm/dL 3.4-5.0 BILI TOTAL 1.0 mg/dL 0.0-1.0 ALKALINE PHOSPHATASE TOTAL 109 IU/L 45- 117 BILI CONJUGATED 0.5 mg/dL 0.0-0.3 PHOSPHORUS - 02/10/19 04:49 PHOSPHORUS 2.7 mg/dL 2.5-4.9 MAGNESIUM - 02/10/19 04:49 MAGNESIUM 1.9 mg/dL 1.8-2.4 CBC - 02/11/19 05:21 MEAN CELL HGB 36.4 pg 27.0-33.0 MEAN CELL HGB CONCENTRATION 36.3 g/dL 32 .0-37.0 MEAN CELL VOLUME 100.4 fl 80.0-100.0 MEAN PLATELET VOLUME 11.0 fl 8.5-10.9 RED BLOOD CELL 2.69 m/cumm 4.00-6.00 RED CELL DISTRIBUTION WIDTH 17.1 % 11 .0-15.6 WHITE BLOOD CELL 4.8 k/cumm 5.0-10.0 HEMOGLOBIN 9.8 gm/dL 12.0-16.0 HEMATOCRIT 27.0 % 37.0-47.0 NRBC % 0.0 /100 WBC 0.0-0.0 PLATELET COUNT 239 k/cumm 150-400 METABOLIC PANEL, BASIC - 02/11/19 05:21 POTASSIUM 3.4 mmol/L 3.5-5.3 EST GFR (MDRD) > 60 mL/min > 59 ANION GAP 7 mmol/L 5-15 EST CrCl (CG) > 60 mL/min > 59 GLUCOSE 78 mg/dL 70-99 CALCIUM 7.1 mg/dL 8.5-10.1 BLOOD UREA NITROGEN 3 mg/dL 7-20 CREATININE 0.80 mg/dL 0.60-1.00 SODIUM 140 mmol/L 135-148 CHLORIDE 107 mmol/L 98-110 CARBON DIOXIDE 26 mmol/L 21-32 PHOSPHORUS - 02/11/19 05:21 PHOSPHORUS 3.0 mg/dL 2.5-4.9 MAGNESIUM - 02/11/19 05:21 MAGNESIUM 1.8 mg/dL 1.8-2.4 CBC - 02/15/19 18:00 MEAN CELL HGB 37.0 pg 27.0-33.0 MEAN CELL HGB CONCENTRATION 35.7 g/dL 32 .0-37.0 MEAN CELL VOLUME 103.7 fl 80.0-100.0 MEAN PLATELET VOLUME 10.5 fl 8.5-10.9 RED BLOOD CELL 2.73 m/cumm 4.00-6.00 RED CELL DISTRIBUTION WIDTH 17.0 % 11 .0-15.6 WHITE BLOOD CELL 14.1 k/cumm 5.0-10.0 HEMOGLOBIN 10.1 gm/dL 12.0-16.0 HEMATOCRIT 28.3 % 37.0-47.0 NRBC % 0.0 /100 WBC 0.0-0.0 PLATELET COUNT 306 k/cumm 150-400 METABOLIC PANEL, COMPREHN - 02/15/19 18: 00 POTASSIUM 3.0 mmol/L 3.5-5.3 EST GFR (MDRD) 46 mL/min > 59 ANION GAP 13 mmol/L 5-15 EST CrCl (CG) 42 mL/min > 59 GLUCOSE 110 mg/dL 70-99 CALCIUM 8.6 mg/dL 8.5-10.1 BLOOD UREA NITROGEN 8 mg/dL 7-20 CREATININE 1.19 mg/dL 0.60-1.00 SODIUM 140 mmol/L 135-148 CHLORIDE 101 mmol/L 98-110 AST/SGOT 45 Units/L 10-37 ALT/SGPT 37 Units/L < 66 CARBON DIOXIDE 26 mmol/L 21-32 TOTAL PROTEIN 5.4 gm/dL 6.4-8.2 ALBUMIN 1.9 gm/dL 3.4-5.0 BILI TOTAL 1.9 mg/dL 0.0-1.0 ALKALINE PHOSPHATASE TOTAL 112 IU/L 45- 117 LIPASE - 02/15/19 18:00 LIPASE 40 Units/L 73-393 ALCOHOL (ETHANOL) SERUM - 02/15/19 18:00 ALCOHOL (ETHANOL) SERUM < 10 mg/dL < 10 PROTHROMBIN TIME WITH INR - 02/15/19 18: 39 INTERNATIONAL NORMAL RATIO 1.0 0.9 -1.1 PROTHROMBIN TIME 11.4 sec 10.0-12.8 GASTRIC OCCULT BLOOD/pH - 02/15/19 19:34 GASTRIC PH 4 Not Defined OCCULT BLOOD EMESIS POSITIVE NEGATIVE URINALYSIS, ROUTINE - 02/15/19 20:13 UA LEUKOCYTE ESTERASE DIPSTICK NEGATIVE NEGATIVE UA NITRITE DIPSTICK NEGATIVE NEGATIVE UA PROTEIN DIPSTICK NEGATIVE NEGATIVE UA GLUCOSE DIPSTICK NEGATIVE NEGATIVE UA KETONE DIPSTICK NEGATIVE NEGATIVE UA UROBILINOGEN DIPSTICK [place] L UA BILIRUBIN DIPSTICK NEGATIVE NEGATIVE UA BLOOD DIPSTICK NEGATIVE NEGATIVE UA SPECIFIC GRAVITY 1.025 1.015-1.02 5 UR PH 7.0 5.0-7.0 CBC W/DIFF - 02/16/19 04:50 BASOPHIL # 0.0 k/cumm 0.0-0.2 BASOPHIL % 0.2 % 0-1 EOSINOPHIL # 0.2 k/cumm 0.1-0.5 EOSINOPHIL % 1.3 % 2-4 GRANULOCYTE # 10.0 k/cumm 2.0-9.0 GRANULOCYTE % 70.1 % 50-75 LYMPHOCYTE # 3.0 k/cumm 1.0-4.0 LYMPHOCYTE % 21.0 % 20-30 MEAN CELL HGB 36.7 pg 27.0-33.0 MEAN CELL HGB CONCENTRATION 34.9 g/dL 32 .0-37.0 MEAN CELL VOLUME 105.2 fl 80.0-100.0 MONOCYTE # 0.9 k/cumm 0.1-1.0 MONOCYTE % 6.2 % 4-6 MEAN PLATELET VOLUME 10.4 fl 8.5-10.9 RED BLOOD CELL 2.86 m/cumm 4.00-6.00 RED CELL DISTRIBUTION WIDTH 17.0 % 11 .0-15.6 WHITE BLOOD CELL 14.2 k/cumm 5.0-10.0 HEMOGLOBIN 10.5 gm/dL 12.0-16.0 HEMATOCRIT 30.1 % 37.0-47.0 NRBC % 0.0 /100 WBC 0.0-0.0 PLATELET COUNT 312 k/cumm 150-400 IMMATURE GRANULOCYTE % 1.2 % 0.0-0.6 IMMATURE GRANULOCYTE # 0.17 k/cumm 0.00- 0.09 RENAL FUNCTION PANEL - 02/16/19 04:50 POTASSIUM 2.7 mmol/L 3.5-5.3 EST GFR (MDRD) 55 mL/min > 59 ANION GAP 9 mmol/L 5-15 EST CrCl (CG) 49 mL/min > 59 GLUCOSE 94 mg/dL 70-99 CALCIUM 8.3 mg/dL 8.5-10.1 BLOOD UREA NITROGEN 10 mg/dL 7-20 CREATININE 1.03 mg/dL 0.60-1.00 SODIUM 141 mmol/L 135-148 CHLORIDE 104 mmol/L 98-110 CARBON DIOXIDE 28 mmol/L 21-32 ALBUMIN 2.0 gm/dL 3.4-5.0 PHOSPHORUS 4.3 mg/dL 2.5-4.9 MAGNESIUM - 02/16/19 04:50 MAGNESIUM 1.8 mg/dL 1.8-2.4 HGB HCT - 02/16/19 15:34 MEAN CELL VOLUME 105.9 fl 80.0-100.0 HEMOGLOBIN 8.8 gm/dL 12.0-16.0 HEMATOCRIT 25.2 % 37.0-47.0 POTASSIUM - 02/16/19 15:34 POTASSIUM 3.4 mmol/L 3.5-5.3 HGB HCT - 02/16/19 20:51 MEAN CELL VOLUME 108.0 fl 80.0-100.0 HEMOGLOBIN 8.4 gm/dL 12.0-16.0 HEMATOCRIT 24.4 % 37.0-47.0 CBC W/DIFF - 02/17/19 06:12 BASOPHIL # 0.0 k/cumm 0.0-0.2 BASOPHIL % 0.3 % 0-1 EOSINOPHIL # 0.3 k/cumm 0.1-0.5 EOSINOPHIL % 4.4 % 2-4 GRANULOCYTE # 4.8 k/cumm 2.0-9.0 GRANULOCYTE % 64.0 % 50-75 LYMPHOCYTE # 1.9 k/cumm 1.0-4.0 LYMPHOCYTE % 25.7 % 20-30 MEAN CELL HGB 37.3 pg 27.0-33.0 MEAN CELL HGB CONCENTRATION 35.4 g/dL 32 .0-37.0 MEAN CELL VOLUME 105.4 fl 80.0-100.0 MONOCYTE # 0.4 k/cumm 0.1-1.0 MONOCYTE % 5.2 % 4-6 MEAN PLATELET VOLUME 10.3 fl 8.5-10.9 RED BLOOD CELL 2.41 m/cumm 4.00-6.00 RED CELL DISTRIBUTION WIDTH 17.2 % 11 .0-15.6 WHITE BLOOD CELL 7.5 k/cumm 5.0-10.0 HEMOGLOBIN 9.0 gm/dL 12.0-16.0 HEMATOCRIT 25.4 % 37.0-47.0 NRBC % 0.0 /100 WBC 0.0-0.0 PLATELET COUNT 286 k/cumm 150-400 IMMATURE GRANULOCYTE % 0.4 % 0.0-0.6 IMMATURE GRANULOCYTE # 0.03 k/cumm 0.00- 0.09 METABOLIC PANEL, COMPREHN - 02/17/19 06: 12 POTASSIUM 3.4 mmol/L 3.5-5.3 EST GFR (MDRD) > 60 mL/min > 59 ANION GAP 8 mmol/L 5-15 EST CrCl (CG) > 60 mL/min > 59 GLUCOSE 80 mg/dL 70-99 CALCIUM 7.6 mg/dL 8.5-10.1 BLOOD UREA NITROGEN 8 mg/dL 7-20 CREATININE 0.80 mg/dL 0.60-1.00 SODIUM 140 mmol/L 135-148 CHLORIDE 105 mmol/L 98-110 AST/SGOT 41 Units/L 10-37 ALT/SGPT 26 Units/L < 66 CARBON DIOXIDE 27 mmol/L 21-32 TOTAL PROTEIN 4.9 gm/dL 6.4-8.2 ALBUMIN 1.8 gm/dL 3.4-5.0 BILI TOTAL 1.7 mg/dL 0.0-1.0 ALKALINE PHOSPHATASE TOTAL 107 IU/L 45- 117 T4 FREE - 02/17/19 06:12 T4 FREE 1.4 ng/dL 0.8-1.8 TSH WITH REFLEX TO FT4 - 02/17/19 06:12 THYROID STIM HORMONE (TSH) 5.35 uIU/mL 0 .34-4.82 VITAMIN B12 - 02/17/19 06:12 VITAMIN B12 957 pg/mL 211-911 FOLIC ACID,SERUM - 02/17/19 06:12 FOLIC ACID,SERUM 11.3 ng/mL > 3.4 HGB HCT - 02/17/19 17:50 MEAN CELL VOLUME 101.3 fl 80.0-100.0 HEMOGLOBIN 8.2 gm/dL 12.0-16.0 HEMATOCRIT 22.8 % 37.0-47.0 CBC W/DIFF - 02/18/19 04:29 BASOPHIL # 0.0 k/cumm 0.0-0.2 BASOPHIL % 0.5 % 0-1 EOSINOPHIL # 0.3 k/cumm 0.1-0.5 EOSINOPHIL % 6.9 % 2-4 GRANULOCYTE # 2.1 k/cumm 2.0-9.0 GRANULOCYTE % 50.7 % 50-75 LYMPHOCYTE # 1.4 k/cumm 1.0-4.0 LYMPHOCYTE % 34.6 % 20-30 MEAN CELL HGB 37.1 pg 27.0-33.0 MEAN CELL HGB CONCENTRATION 34.2 g/dL 32 .0-37.0 MEAN CELL VOLUME 108.4 fl 80.0-100.0 MONOCYTE # 0.3 k/cumm 0.1-1.0 MONOCYTE % 7.1 % 4-6 MEAN PLATELET VOLUME 10.1 fl 8.5-10.9 RED BLOOD CELL 2.02 m/cumm 4.00-6.00 RED CELL DISTRIBUTION WIDTH 16.9 % 11 .0-15.6 WHITE BLOOD CELL 4.1 k/cumm 5.0-10.0 HEMOGLOBIN 7.5 gm/dL 12.0-16.0 HEMATOCRIT 21.9 % 37.0-47.0 NRBC % 0.0 /100 WBC 0.0-0.0 PLATELET COUNT 253 k/cumm 150-400 IMMATURE GRANULOCYTE % 0.2 % 0.0-0.6 IMMATURE GRANULOCYTE # 0.01 k/cumm 0.00- 0.09 METABOLIC PANEL, COMPREHN - 02/18/19 04: 29 POTASSIUM 3.1 mmol/L 3.5-5.3 EST GFR (MDRD) > 60 mL/min > 59 ANION GAP 8 mmol/L 5-15 EST CrCl (CG) > 60 mL/min > 59 GLUCOSE 83 mg/dL 70-99 CALCIUM 7.2 mg/dL 8.5-10.1 BLOOD UREA NITROGEN 7 mg/dL 7-20 CREATININE 0.80 mg/dL 0.60-1.00 SODIUM 142 mmol/L 135-148 CHLORIDE 108 mmol/L 98-110 AST/SGOT 46 Units/L 10-37 ALT/SGPT 22 Units/L < 66 CARBON DIOXIDE 26 mmol/L 21-32 TOTAL PROTEIN 4.0 gm/dL 6.4-8.2 ALBUMIN 1.4 gm/dL 3.4-5.0 BILI TOTAL 1.2 mg/dL 0.0-1.0 ALKALINE PHOSPHATASE TOTAL 94 IU/L 45- 117 IRON W/ BINDING CAPACITY - 02/18/19 10:0 1 IRON SATURATION > 99 % SAT 11-46 IRON BINDING CAPACITY, TOTAL 49 mcg/dL 2 50-450 IRON 76 mcg/dL 35-150 FERRITIN - 02/18/19 10:01 FERRITIN 494 ng/mL 8-252 HGB HCT - 02/18/19 12:08 MEAN CELL VOLUME 108.2 fl 80.0-100.0 HEMOGLOBIN 8.1 gm/dL 12.0-16.0 HEMATOCRIT 23.7 % 37.0-47.0 CBC W/DIFF - 02/19/19 04:50 BASOPHIL # 0.0 k/cumm 0.0-0.2 BASOPHIL % 0.5 % 0-1 EOSINOPHIL # 0.3 k/cumm 0.1-0.5 EOSINOPHIL % 7.6 % 2-4 GRANULOCYTE # 1.9 k/cumm 2.0-9.0 GRANULOCYTE % 44.3 % 50-75 LYMPHOCYTE # 1.8 k/cumm 1.0-4.0 LYMPHOCYTE % 40.7 % 20-30 MEAN CELL HGB 36.7 pg 27.0-33.0 MEAN CELL HGB CONCENTRATION 34.3 g/dL 32 .0-37.0 MEAN CELL VOLUME 106.8 fl 80.0-100.0 MONOCYTE # 0.3 k/cumm 0.1-1.0 MONOCYTE % 6.7 % 4-6 MEAN PLATELET VOLUME 10.0 fl 8.5-10.9 RED BLOOD CELL 2.21 m/cumm 4.00-6.00 RED CELL DISTRIBUTION WIDTH 16.7 % 11 .0-15.6 WHITE BLOOD CELL 4.3 k/cumm 5.0-10.0 HEMOGLOBIN 8.1 gm/dL 12.0-16.0 HEMATOCRIT 23.6 % 37.0-47.0 NRBC % 0.0 /100 WBC 0.0-0.0 PLATELET COUNT 304 k/cumm 150-400 IMMATURE GRANULOCYTE % 0.2 % 0.0-0.6 IMMATURE GRANULOCYTE # 0.01 k/cumm 0.00- 0.09 METABOLIC PANEL, COMPREHN - 02/19/19 04: 50 POTASSIUM 3.2 mmol/L 3.5-5.3 EST GFR (MDRD) > 60 mL/min > 59 ANION GAP 8 mmol/L 5-15 EST CrCl (CG) > 60 mL/min > 59 GLUCOSE 97 mg/dL 70-99 CALCIUM 7.2 mg/dL 8.5-10.1 BLOOD UREA NITROGEN 5 mg/dL 7-20 CREATININE 0.80 mg/dL 0.60-1.00 SODIUM 138 mmol/L 135-148 CHLORIDE 105 mmol/L 98-110 AST/SGOT 39 Units/L 10-37 ALT/SGPT 22 Units/L < 66 CARBON DIOXIDE 25 mmol/L 21-32 TOTAL PROTEIN 4.2 gm/dL 6.4-8.2 ALBUMIN 1.5 gm/dL 3.4-5.0 BILI TOTAL 1.0 mg/dL 0.0-1.0 ALKALINE PHOSPHATASE TOTAL 93 IU/L 45- 117 CBC W/DIFF - 02/20/19 06:05 BASOPHIL # 0.0 k/cumm 0.0-0.2 BASOPHIL % 0.4 % 0-1 EOSINOPHIL # 0.3 k/cumm 0.1-0.5 EOSINOPHIL % 5.1 % 2-4 GRANULOCYTE # 2.6 k/cumm 2.0-9.0 GRANULOCYTE % 52.3 % 50-75 LYMPHOCYTE # 1.7 k/cumm 1.0-4.0 LYMPHOCYTE % 34.2 % 20-30 MEAN CELL HGB 36.2 pg 27.0-33.0 MEAN CELL HGB CONCENTRATION 34.6 g/dL 32 .0-37.0 MEAN CELL VOLUME 104.8 fl 80.0-100.0 MONOCYTE # 0.4 k/cumm 0.1-1.0 MONOCYTE % 7.8 % 4-6 MEAN PLATELET VOLUME 9.9 fl 8.5-10.9 RED BLOOD CELL 2.29 m/cumm 4.00-6.00 RED CELL DISTRIBUTION WIDTH 17.0 % 11 .0-15.6 WHITE BLOOD CELL 4.9 k/cumm 5.0-10.0 HEMOGLOBIN 8.3 gm/dL 12.0-16.0 HEMATOCRIT 24.0 % 37.0-47.0 NRBC % 0.0 /100 WBC 0.0-0.0 PLATELET COUNT 342 k/cumm 150-400 IMMATURE GRANULOCYTE % 0.2 % 0.0-0.6 IMMATURE GRANULOCYTE # 0.01 k/cumm 0.00- 0.09 METABOLIC PANEL, COMPREHN - 02/20/19 06: 05 POTASSIUM 3.1 mmol/L 3.5-5.3 EST GFR (MDRD) > 60 mL/min > 59 ANION GAP 8 mmol/L 5-15 EST CrCl (CG) > 60 mL/min > 59 GLUCOSE 94 mg/dL 70-99 CALCIUM 7.4 mg/dL 8.5-10.1 BLOOD UREA NITROGEN 6 mg/dL 7-20 CREATININE 0.80 mg/dL 0.60-1.00 SODIUM 141 mmol/L 135-148 CHLORIDE 107 mmol/L 98-110 AST/SGOT 42 Units/L 10-37 ALT/SGPT 22 Units/L < 66 CARBON DIOXIDE 26 mmol/L 21-32 TOTAL PROTEIN 4.3 gm/dL 6.4-8.2 ALBUMIN 1.4 gm/dL 3.4-5.0 BILI TOTAL 0.8 mg/dL 0.0-1.0 ALKALINE PHOSPHATASE TOTAL 93 IU/L 45- 117 HEMOCHROMATOSIS DNA - 02/20/19 16:54 HEMOCHROMATOSIS DNA Note () CBC With Platelet and Differential - 02/15 10:26 Absolute Basophils 0.01 10*3/uL 0.00-0.2 0 Absolute Eosinophils 0.12 10*3/uL 0.00-0 .50 Absolute Lymphocytes 1.52 10*3/uL 0.80-3 .30 Absolute Monocytes 1.03 10*3/uL 0.30-1.0 0 Absolute Neutrophils 9.24 10*3/uL 1.90-7 .00 Basophils 0 % 0-2 Eosinophils 1 % 0-4 HCT 21.8 % 37.0-47.0 HGB 7.5 g/dL 12.0-16.0 Immature Granulocytes 0.3 % 0.0-1.0 Lymphocytes 13 % 20-46 MCH 36.4 pg 27.0-32.0 MCHC 34.4 g/dL 32.0-36.0 MCV 105.8 fL 82.0-99.0 Monocytes 9 % 4-11 MPV 10.6 fL 9.4-12.4 Neutrophils 77 % 51-75 Nucleated RBC Automated 0.0 /100 WBC Platelet Count 233 K/uL 150-400 RBC 2.06 10*6/uL 4.00-5.20 RDW 15.0 % 11.5-14.5 WBC 12.0 K/uL 4.8-10.8 Troponin - 03/04/19 10:26 Troponin <0.05 ng/mL <0.06 Comprehensive Metabolic Panel (CMP) - 10:26 Albumin 1.4 g/dL 3.5-4.8 Alkaline Phosphatase 94 U/L 26-104 ALT (SGPT) 14 U/L 14-54 Anion Gap 12 mEq/L 3-20 AST (SGOT) 26 U/L 15-41 Bilirubin Total 1.7 mg/dL 0.2-1.2 BUN 4 mg/dL 4-20 Calcium 6.6 mg/dL 8.6-10.0 Chloride 101 mEq/L 99-109 CO2 24 mEq/L 22-32 Creatinine 0.86 mg/dL 0.44-1.03 Globulin 2.7 g/dL 1.9-4.3 Glucose 98 mg/dL 70-100 Potassium 1.5 mEq/L 3.6-5.1 Protein 4.1 g/dL 6.1-7.9 Sodium 137 mEq/L 136-144 Lipase - 03/04/19 10:26 Lipase 16 U/L 8-48 eGFR - 03/04/19 10:26 eGFR >60 mL/min >60 Magnesium - 03/04/19 10:26 Magnesium 1.5 mg/dL 1.8-2.5 B12 and Folate - 03/04/19 10:26 Folate 7.2 ng/mL 7.0-31.4 Vitamin B12 1129 pg/mL 213-816 Chem 8 NPT - 03/04/19 10:39 Anion Gap 10 mEq/L 3-20 BUN Venous <3 mg/dl 4-20 Calcium Ionized Venous 0.99 mmol/L 1.19- 1.41 Creatinine Venous 0.8 mg/dL 0.4-1.0 Glucose Venous 92 mg/dL 70-100 Potassium, WB <2.0 mEq/L 3.6-5.1 Sodium Venous 137 mEq/L 136-144 Total CO2 Venous 28 mEq/L 25-29 Venous CL 99 mEq/L 99-109 HCT Venous 23.0 % 37.0-47.0 HGB Venous NPT 7.8 g/dL 12.0-16.0 Lactic Acid NPT - 03/04/19 10:41 Lactic Acid NPT 1.6 mEq/L 0.5-2.0 ABO and Rh - 03/04/19 11:14 ABO and Rh NA Antibody Screen - 03/04/19 11:14 Antibody Screen NA Red Blood Cells - 03/04/19 11:14 Red Blood Cells NA Red Blood Cells - 03/04/19 11:14 Red Blood Cells NA Red Blood Cells - 03/04/19 11:14 Red Blood Cells NA Urinalysis with reflex microscopic - 02/15 11:45 Appearance Clear NA Bilirubin Negative NA Negative Blood Negative NA Negative Color Yellow NA Glucose, Urine Negative Negative Ketones Negative Negative Leukocyte Esterase Trace NA Negative Nitrites Negative NA Negative pH 7.0 NA 5.0-8.0 Protein Negative NA Negative Specific [place] 1.005 NA 1.003-1.030 UA Collection type Clean Catch NA Urobilinogen 4.0 mg/dL <1.0 Urine Microscopic - 03/04/19 11:45 Bacteria Rare NA None Seen-Rare Epithelial Cells 0 /HPF 0-5 RBC, Urine 0 /HPF 0-2 WBC, Urine 0 /HPF 0-4 Renal Function Panel - 03/04/19 15:34 Albumin 1.4 g/dL 3.5-4.8 Anion Gap 11 mEq/L 3-20 BUN 5 mg/dL 4-20 Calcium 6.6 mg/dL 8.6-10.0 Chloride 104 mEq/L 99-109 CO2 24 mEq/L 22-32 Creatinine 0.86 mg/dL 0.44-1.03 Glucose 103 mg/dL 70-100 Phosphorus 3.8 mg/dL 2.4-4.7 Potassium 1.9 mEq/L 3.6-5.1 Sodium 139 mEq/L 136-144 eGFR - 03/04/19 15:34 eGFR >60 mL/min >60 Procalcitonin - 03/04/19 15:34 Procalcitonin 4.14 ng/mL 0.00-0.09 Renal Function Panel - 03/04/19 20:55 Albumin 1.5 g/dL 3.5-4.8 Anion Gap 13 mEq/L 3-20 BUN 3 mg/dL 4-20 Calcium 6.6 mg/dL 8.6-10.0 Chloride 105 mEq/L 99-109 CO2 21 mEq/L 22-32 Creatinine 0.87 mg/dL 0.44-1.03 Glucose 133 mg/dL 70-100 Phosphorus 3.4 mg/dL 2.4-4.7 Potassium 2.2 mEq/L 3.6-5.1 Sodium 139 mEq/L 136-144 Magnesium - 03/04/19 20:55 Magnesium 2.0 mg/dL 1.8-2.5 eGFR - 03/04/19 20:55 eGFR >60 mL/min >60 Prealbumin - 03/04/19 20:55 Prealbumin 5 mg/dL 18-38 CBC With Platelet No Differential - 03/17 02:51 HCT 24.7 % 37.0-47.0 HGB 8.7 g/dL 12.0-16.0 MCH 37.3 pg 27.0-32.0 MCHC 35.2 g/dL 32.0-36.0 MCV 106.0 fL 82.0-99.0 MPV 11.9 fL 9.4-12.4 Platelet Count 311 K/uL 150-400 RBC 2.33 10*6/uL 4.00-5.20 RDW 14.6 % 11.5-14.5 WBC 20.2 K/uL 4.8-10.8 Comprehensive Metabolic Panel (CMP) - 02:51 Albumin 1.4 g/dL 3.5-4.8 Alkaline Phosphatase 119 U/L 26-104 ALT (SGPT) 17 U/L 14-54 Anion Gap 11 mEq/L 3-20 AST (SGOT) 37 U/L 15-41 Bilirubin Total 1.4 mg/dL 0.2-1.2 BUN 5 mg/dL 4-20 Calcium 6.8 mg/dL 8.6-10.0 Chloride 109 mEq/L 99-109 CO2 20 mEq/L 22-32 Creatinine 0.94 mg/dL 0.44-1.03 Globulin 3.0 g/dL 1.9-4.3 Glucose 125 mg/dL 70-100 Potassium 3.2 mEq/L 3.6-5.1 Protein 4.4 g/dL 6.1-7.9 Sodium 140 mEq/L 136-144 Phosphorus - 03/05/19 02:51 Phosphorus 2.9 mg/dL 2.4-4.7 Magnesium - 03/05/19 02:51 Magnesium 1.9 mg/dL 1.8-2.5 eGFR - 03/05/19 02:51 eGFR >60 mL/min >60 TSH with Reflex Free T4 - 03/05/19 02:51 TSH with Reflex Free T4 3.12 uIU/mL 0.35 -5.50 Lactic Acid Venous - 03/05/19 06:35 Lactic Acid Venous 2.2 mEq/L 0.5-2.0 Lactic Acid Venous - 03/05/19 15:29 Lactic Acid Venous 1.6 mEq/L 0.5-2.0 CBC With Platelet and Differential - 04/17 03:01 Absolute Basophils 0.02 10*3/uL 0.00-0.2 0 Absolute Eosinophils 0.52 10*3/uL 0.00-0 .50 Absolute Lymphocytes 1.37 10*3/uL 0.80-3 .30 Absolute Monocytes 0.58 10*3/uL 0.30-1.0 0 Absolute Neutrophils 7.76 10*3/uL 1.90-7 .00 Basophils 0 % 0-2 Eosinophils 5 % 0-4 HCT 25.3 % 37.0-47.0 HGB 8.7 g/dL 12.0-16.0 Immature Granulocytes 0.3 % 0.0-1.0 Lymphocytes 13 % 20-46 MCH 37.3 pg 27.0-32.0 MCHC 34.4 g/dL 32.0-36.0 MCV 108.6 fL 82.0-99.0 Monocytes 6 % 4-11 MPV 11.0 fL 9.4-12.4 Neutrophils 76 % 51-75 Platelet Count 297 K/uL 150-400 RBC 2.33 10*6/uL 4.00-5.20 RDW 14.8 % 11.5-14.5 WBC 10.3 K/uL 4.8-10.8 Magnesium - 03/06/19 03:01 Magnesium 1.7 mg/dL 1.8-2.5 Renal Function Panel - 03/06/19 03:01 Albumin 1.3 g/dL 3.5-4.8 Anion Gap 15 mEq/L 3-20 BUN 5 mg/dL 4-20 Calcium 7.2 mg/dL 8.6-10.0 Chloride 107 mEq/L 99-109 CO2 17 mEq/L 22-32 Creatinine 0.93 mg/dL 0.44-1.03 Glucose 82 mg/dL 70-100 Phosphorus 2.6 mg/dL 2.4-4.7 Potassium 2.5 mEq/L 3.6-5.1 Sodium 139 mEq/L 136-144 eGFR - 03/06/19 03:01 eGFR >60 mL/min >60 Procalcitonin - 03/06/19 03:01 Procalcitonin 12.35 ng/mL 0.00-0.09 Reticulocyte Count Auto - 03/06/19 03:01 Reticulocyte Count Auto 8.1 % 0.6-2. 5 LDH - 03/06/19 03:01 LDH 395 U/L 98-192 Haptoglobin - 03/06/19 03:01 Haptoglobin 151 mg/dL 36-195 Renal Function Panel - 03/06/19 14:04 Albumin 1.4 g/dL 3.5-4.8 Anion Gap 12 mEq/L 3-20 BUN 4 mg/dL 4-20 Calcium 7.4 mg/dL 8.6-10.0 Chloride 109 mEq/L 99-109 CO2 19 mEq/L 22-32 Creatinine 1.07 mg/dL 0.44-1.03 Glucose 89 mg/dL 70-100 Phosphorus 3.0 mg/dL 2.4-4.7 Potassium 3.7 mEq/L 3.6-5.1 Sodium 140 mEq/L 136-144 eGFR - 03/06/19 14:04 eGFR 52 mL/min >60 PTT - 03/07/19 01:57 PTT 21.8 seconds 25.0-35.0 Protime (INR) - 03/07/19 01:57 INR 1.2 NA 0.9-1.2 CBC With Platelet and Differential - 05/18 01:57 Absolute Basophils 0.03 10*3/uL 0.00-0.2 0 Absolute Eosinophils 0.19 10*3/uL 0.00-0 .50 Absolute Lymphocytes 1.95 10*3/uL 0.80-3 .30 Absolute Monocytes 0.88 10*3/uL 0.30-1.0 0 Absolute Neutrophils 9.95 10*3/uL 1.90-7 .00 Basophils 0 % 0-2 Eosinophils 2 % 0-4 HCT 25.5 % 37.0-47.0 HGB 8.2 g/dL 12.0-16.0 Immature Granulocytes 0.4 % 0.0-1.0 Lymphocytes 15 % 20-46 MCH 36.4 pg 27.0-32.0 MCHC 32.2 g/dL 32.0-36.0 MCV 113.3 fL 82.0-99.0 Monocytes 7 % 4-11 MPV 10.4 fL 9.4-12.4 Neutrophils 76 % 51-75 Nucleated RBC Automated 0.0 /100 WBC Platelet Count 340 K/uL 150-400 RBC 2.25 10*6/uL 4.00-5.20 RDW 15.7 % 11.5-14.5 WBC 13.0 K/uL 4.8-10.8 Renal Function Panel - 03/07/19 01:57 Albumin 1.4 g/dL 3.5-4.8 Anion Gap 11 mEq/L 3-20 BUN 6 mg/dL 4-20 Calcium 7.3 mg/dL 8.6-10.0 Chloride 112 mEq/L 99-109 CO2 16 mEq/L 22-32 Creatinine 1.13 mg/dL 0.44-1.03 Glucose 93 mg/dL 70-100 Phosphorus 3.5 mg/dL 2.4-4.7 Potassium 3.8 mEq/L 3.6-5.1 Sodium 139 mEq/L 136-144 eGFR - 03/07/19 01:57 eGFR 49 mL/min >60 Magnesium - 03/07/19 01:57 Magnesium 2.1 mg/dL 1.8-2.5 Lactic Acid Venous - 03/07/19 07:39 Lactic Acid Venous 3.2 mEq/L 0.5-2.0 Glucose, Fluid - 03/07/19 11:31 Fluid Type Pleural NA Hemoglobin and Hematocrit - 03/07/19 14: 05 HCT 18.7 % 37.0-47.0 HGB 5.9 g/dL 12.0-16.0 Crossmatch Reportable for [facility] - 03/07 15:27 Crossmatch Reportable for [facility] See Transfusion N A Hemoglobin and Hematocrit - 03/07/19 15: 47 HCT 18.5 % 37.0-47.0 HGB 5.8 g/dL 12.0-16.0 Sodium Random Urine - 03/07/19 17:27 Sodium Random Urine 47 mEq/L Protein Random Urine - 03/07/19 17:27 Protein Random Urine 28 mg/dL Creatinine Random Urine - 03/07/19 17:27 Creatinine Random Urine 65 mg/dL Urinalysis with reflex microscopic - 05/18 17:27 Appearance Sl Cloudy NA Bilirubin Negative NA Negative Blood Negative NA Negative Color Yellow NA Glucose, Urine Negative Negative Ketones Negative Negative Leukocyte Esterase Negative NA Negative Nitrites Negative NA Negative pH 5.0 NA 5.0-8.0 Protein Pos 1+ NA Negative Specific [place] 1.025 NA 1.003-1.030 UA Collection type Clean Catch NA Urobilinogen Negative mg/dL <1.0 Urine Microscopic - 03/07/19 17:27 Bacteria Rare NA None Seen-Rare Epithelial Cells 0 /HPF 0-5 Hyaline Casts >12 /LPF 0-3 RBC, Urine 2 /HPF 0-2 Urine Mucus Present NA WBC, Urine 2 /HPF 0-4 Blood Gases, Arterial (RT) - 03/07/19 20 :24 Arterial Base Excess -7 NA 0-2 Arterial Bicarbonate 18 mEq/L 22-26 Arterial O2 Saturation 99.9 % 90.0-97 .0 Arterial PCO2 33 mmHg 35-45 Arterial PH 7.35 NA 7.35-7.45 Arterial PO2 347 mmHg 80-100 Arterial FIO2 100 NA 0-100 PEEP 5.0 cmH2O Set Rate 16 br/min Vent Mode AC O2 Panel VC+ Set Vt 450 mL P/F Ratio 347 NA Hemoglobin and Hematocrit - 03/07/19 23: 25 HCT 24.7 % 37.0-47.0 HGB 8.2 g/dL 12.0-16.0 Crossmatch Reportable for [facility] - 03/08 00:41 Crossmatch Reportable for [facility] See Transfusion N A Ammonia - 03/08/19 01:01 Ammonia 46 umol/L 9-35 eGFR - 03/08/19 01:01 eGFR 34 mL/min >60 Hepatic Function Panel - 03/08/19 01:01 Albumin 1.9 g/dL 3.5-4.8 Alkaline Phosphatase 68 U/L 26-104 ALT (SGPT) 20 U/L 14-54 AST (SGOT) 41 U/L 15-41 Bilirubin Direct 0.5 mg/dL 0.0-0.2 Bilirubin Indirect 1.0 mg/dL 0.0-1.0 Bilirubin Total 1.5 mg/dL 0.2-1.2 Protein 3.7 g/dL 6.1-7.9 Magnesium - 03/08/19 01:01 Magnesium 1.9 mg/dL 1.8-2.5 Renal Function Panel - 03/08/19 01:01 Anion Gap 13 mEq/L 3-20 BUN 11 mg/dL 4-20 Calcium 7.2 mg/dL 8.6-10.0 Chloride 111 mEq/L 99-109 CO2 17 mEq/L 22-32 Creatinine 1.54 mg/dL 0.44-1.03 Glucose 124 mg/dL 70-100 Phosphorus 4.5 mg/dL 2.4-4.7 Potassium 3.5 mEq/L 3.6-5.1 Sodium 141 mEq/L 136-144 CBC With Platelet No Differential - 02/27 01:01 HCT 25.1 % 37.0-47.0 HGB 8.1 g/dL 12.0-16.0 MCH 35.1 pg 27.0-32.0 MCHC 32.3 g/dL 32.0-36.0 MCV 108.7 fL 82.0-99.0 MPV 10.6 fL 9.4-12.4 Platelet Count 207 K/uL 150-400 RBC 2.31 10*6/uL 4.00-5.20 RDW 17.8 % 11.5-14.5 WBC 14.4 K/uL 4.8-10.8 ABO and Rh - 03/08/19 01:01 ABO and Rh NA Antibody Screen - 03/08/19 01:01 Antibody Screen NA DIC Screen - 03/08/19 01:01 D-Dimer 855 ng/mL FEU 0-500 Fibrinogen 119 mg/dL 187-520 INR 1.2 NA 0.9-1.2 PTT 34.5 seconds 25.0-35.0 Red Blood Cells - 03/08/19 01:01 Red Blood Cells NA Calcium Ionized - 03/08/19 01:01 Calcium Ionized 1.15 mmol/L 1.19-1.41 Triglycerides - 03/08/19 01:01 Triglycerides 295 mg/dL 0-149 Blood Gases, Arterial (RT) - 03/08/19 06 :11 Arterial Base Excess -9 NA 0-2 Arterial Bicarbonate 15 mEq/L 22-26 Arterial O2 Saturation 98.0 % 90.0-97 .0 Arterial PCO2 27 mmHg 35-45 Arterial PH 7.36 NA 7.35-7.45 Arterial PO2 112 mmHg 80-100 Arterial FIO2 40 NA 0-100 PEEP 5.0 cmH2O Set Rate 16 br/min Vent Mode AC O2 Panel VC+ Set Vt 450 mL P/F Ratio 280 NA Hemoglobin and Hematocrit - 03/08/19 06: 25 HCT 29.1 % 37.0-47.0 HGB 9.5 g/dL 12.0-16.0 Glucose, Fluid - 03/08/19 12:29 Fluid Type Pleural NA HGB - 03/08/19 17:48 HGB 9.0 g/dL 12.0-16.0 CBC With Platelet No Differential - 02/27 09/17 03:01 HCT 29.1 % 37.0-47.0 HGB 9.5 g/dL 12.0-16.0 MCH 32.9 pg 27.0-32.0 MCHC 32.6 g/dL 32.0-36.0 MCV 100.7 fL 82.0-99.0 MPV 10.6 fL 9.4-12.4 Platelet Count 168 K/uL 150-400 RBC 2.89 10*6/uL 4.00-5.20 RDW 23.1 % 11.5-14.5 WBC 16.8 K/uL 4.8-10.8 Renal Function Panel - 03/09/19 03:01 Albumin 2.3 g/dL 3.5-4.8 Anion Gap 11 mEq/L 3-20 BUN 11 mg/dL 4-20 Calcium 7.4 mg/dL 8.6-10.0 Chloride 111 mEq/L 99-109 CO2 21 mEq/L 22-32 Creatinine 1.62 mg/dL 0.44-1.03 Glucose 109 mg/dL 70-100 Phosphorus 3.8 mg/dL 2.4-4.7 Potassium 2.8 mEq/L 3.6-5.1 Sodium 143 mEq/L 136-144 Magnesium - 03/09/19 03:01 Magnesium 1.8 mg/dL 1.8-2.5 eGFR - 03/09/19 03:01 eGFR 32 mL/min >60 Calcium Ionized - 03/09/19 03:01 Calcium Ionized 1.22 mmol/L 1.19-1.41 Cortisol AM - 03/09/19 08:43 Cortisol AM 16 ug/dL 7-18 Fluid Cell Count with Differential - 07/18 09:00 Fluid Type Thoracentesis NA Protein, Fluid - 03/09/19 09:00 Protein, Fluid <1.0 g/dL Albumin, Fluid - 03/09/19 09:00 Albumin, Fluid <1.0 g/dL LDH, Fluid - 03/09/19 09:00 LDH, Fluid 56 U/L Triglycerides, Fluid - 03/09/19 09:00 Triglycerides, Fluid 28 mg/dL Glucose, Fluid - 03/09/19 09:04 Fluid Type Pleural NA Ferritin - 03/09/19 09:18 Ferritin 478 ng/mL 11-307 Iron Profile - 03/09/19 09:18 Iron Binding Capacity NA ug/dL 286-569 Percent Saturation NA % 11-46 Transferrin <70 mg/dL 192-382 Renal Function Panel - 03/09/19 15:47 Albumin 2.0 g/dL 3.5-4.8 Anion Gap 9 mEq/L 3-20 BUN 9 mg/dL 4-20 Calcium 7.3 mg/dL 8.6-10.0 Chloride 109 mEq/L 99-109 CO2 24 mEq/L 22-32 Creatinine 1.51 mg/dL 0.44-1.03 Glucose 234 mg/dL 70-100 Phosphorus 2.6 mg/dL 2.4-4.7 Potassium 2.8 mEq/L 3.6-5.1 Sodium 142 mEq/L 136-144 eGFR - 03/09/19 15:47 eGFR 35 mL/min >60 CBC With Platelet No Differential - 02/27 10/18 02:38 HCT 31.1 % 37.0-47.0 HGB 10.2 g/dL 12.0-16.0 MCH 33.0 pg 27.0-32.0 MCHC 32.8 g/dL 32.0-36.0 MCV 100.6 fL 82.0-99.0 MPV 11.1 fL 9.4-12.4 Platelet Count 138 K/uL 150-400 RBC 3.09 10*6/uL 4.00-5.20 RDW 21.8 % 11.5-14.5 WBC 12.4 K/uL 4.8-10.8 Renal Function Panel - 03/10/19 02:38 Albumin 1.9 g/dL 3.5-4.8 Anion Gap 12 mEq/L 3-20 BUN 7 mg/dL 4-20 Calcium 7.1 mg/dL 8.6-10.0 Chloride 103 mEq/L 99-109 CO2 27 mEq/L 22-32 Creatinine 1.15 mg/dL 0.44-1.03 Glucose 181 mg/dL 70-100 Phosphorus 2.0 mg/dL 2.4-4.7 Potassium 2.7 mEq/L 3.6-5.1 Sodium 142 mEq/L 136-144 Magnesium - 03/10/19 02:38 Magnesium 1.6 mg/dL 1.8-2.5 Hepatic Function Panel - 03/10/19 02:38 Alkaline Phosphatase 72 U/L 26-104 ALT (SGPT) 21 U/L 14-54 AST (SGOT) 42 U/L 15-41 Bilirubin Direct 0.5 mg/dL 0.0-0.2 Bilirubin Indirect 0.6 mg/dL 0.0-1.0 Bilirubin Total 1.1 mg/dL 0.2-1.2 Protein 4.2 g/dL 6.1-7.9 eGFR - 03/10/19 02:38 eGFR 48 mL/min >60 Calcium Ionized - 03/10/19 02:38 Calcium Ionized 1.13 mmol/L 1.19-1.41 Renal Function Panel - 03/11/19 08:26 Albumin 1.6 g/dL 3.5-4.8 Anion Gap 13 mEq/L 3-20 BUN 6 mg/dL 4-20 Calcium 7.1 mg/dL 8.6-10.0 Chloride 100 mEq/L 99-109 CO2 28 mEq/L 22-32 Creatinine 0.85 mg/dL 0.44-1.03 Glucose 180 mg/dL 70-100 Phosphorus 1.3 mg/dL 2.4-4.7 Potassium 2.9 mEq/L 3.6-5.1 Sodium 141 mEq/L 136-144 eGFR - 03/11/19 08:26 eGFR >60 mL/min >60 B-Type Natriuretic Peptide - 03/11/19 08 :26 B-Type Natriuretic Peptide 883 pg/mL 0-9 9 Magnesium - 03/11/19 08:26 Magnesium 1.9 mg/dL 1.8-2.5 Procalcitonin - 03/11/19 08:26 Procalcitonin 1.35 ng/mL 0.00-0.09 CBC With Platelet No Differential - 02/27 12/16 02:58 HCT 30.3 % 37.0-47.0 HGB 9.9 g/dL 12.0-16.0 MCH 33.3 pg 27.0-32.0 MCHC 32.7 g/dL 32.0-36.0 MCV 102.0 fL 82.0-99.0 MPV 12.1 fL 9.4-12.4 Platelet Count 172 K/uL 150-400 RBC 2.97 10*6/uL 4.00-5.20 RDW 20.6 % 11.5-14.5 WBC 12.8 K/uL 4.8-10.8 Renal Function Panel - 03/12/19 02:58 Albumin 1.7 g/dL 3.5-4.8 Anion Gap 14 mEq/L 3-20 BUN 4 mg/dL 4-20 Calcium 7.3 mg/dL 8.6-10.0 Chloride 96 mEq/L 99-109 CO2 29 mEq/L 22-32 Creatinine 0.81 mg/dL 0.44-1.03 Glucose 171 mg/dL 70-100 Phosphorus 1.9 mg/dL 2.4-4.7 Potassium 2.7 mEq/L 3.6-5.1 Sodium 139 mEq/L 136-144 eGFR - 03/12/19 02:58 eGFR >60 mL/min >60 Magnesium - 03/12/19 02:58 Magnesium 1.5 mg/dL 1.8-2.5 Renal Function Panel - 03/12/19 20:00 Albumin 1.6 g/dL 3.5-4.8 Anion Gap 12 mEq/L 3-20 BUN 4 mg/dL 4-20 Calcium 7.0 mg/dL 8.6-10.0 Chloride 92 mEq/L 99-109 CO2 33 mEq/L 22-32 Creatinine 0.74 mg/dL 0.44-1.03 Glucose 165 mg/dL 70-100 Phosphorus 2.2 mg/dL 2.4-4.7 Potassium 3.7 mEq/L 3.6-5.1 Sodium 137 mEq/L 136-144 eGFR - 03/12/19 20:00 eGFR >60 mL/min >60 CBC With Platelet No Differential - 02/27 01/15 06:16 HCT 29.0 % 37.0-47.0 HGB 9.4 g/dL 12.0-16.0 MCH 33.3 pg 27.0-32.0 MCHC 32.4 g/dL 32.0-36.0 MCV 102.8 fL 82.0-99.0 MPV 11.8 fL 9.4-12.4 Platelet Count 166 K/uL 150-400 RBC 2.82 10*6/uL 4.00-5.20 RDW 20.1 % 11.5-14.5 WBC 12.7 K/uL 4.8-10.8 Renal Function Panel - 03/13/19 06:16 Albumin 1.6 g/dL 3.5-4.8 Anion Gap 13 mEq/L 3-20 BUN 4 mg/dL 4-20 Calcium 7.3 mg/dL 8.6-10.0 Chloride 95 mEq/L 99-109 CO2 32 mEq/L 22-32 Creatinine 0.65 mg/dL 0.44-1.03 Glucose 139 mg/dL 70-100 Phosphorus 1.8 mg/dL 2.4-4.7 Potassium 3.4 mEq/L 3.6-5.1 Sodium 140 mEq/L 136-144 eGFR - 03/13/19 06:16 eGFR >60 mL/min >60 Magnesium - 03/13/19 06:16 Magnesium 1.7 mg/dL 1.8-2.5 Renal Function Panel - 03/13/19 10:09 Albumin 1.5 g/dL 3.5-4.8 Anion Gap 16 mEq/L 3-20 BUN 5 mg/dL 4-20 Calcium 7.1 mg/dL 8.6-10.0 Chloride 92 mEq/L 99-109 CO2 32 mEq/L 22-32 Creatinine 0.68 mg/dL 0.44-1.03 Glucose 165 mg/dL 70-100 Phosphorus 2.6 mg/dL 2.4-4.7 Potassium 3.9 mEq/L 3.6-5.1 Sodium 140 mEq/L 136-144 eGFR - 03/13/19 10:09 eGFR >60 mL/min >60 CBC With Platelet No Differential - 02/27 01/15 17:52 HCT 29.4 % 37.0-47.0 HGB 9.1 g/dL 12.0-16.0 MCH 32.5 pg 27.0-32.0 MCHC 31.0 g/dL 32.0-36.0 MCV 105.0 fL 82.0-99.0 MPV 11.9 fL 9.4-12.4 Platelet Count 178 K/uL 150-400 RBC 2.80 10*6/uL 4.00-5.20 RDW 19.6 % 11.5-14.5 WBC 12.4 K/uL 4.8-10.8 Hepatitis Panel - 03/14/19 02:45 Hepatitis A Antibody IGM Negative Negat [place] Hepatitis B Surface Antigen Negative Ne gative Hepatitis C Total Antibody Negative Neg ative Hepatitis Core Ab IGM Negative Negative HIV Antigen/Antibody Combo - 03/14/19 02 :45 HIV Antigen/Antibody Combo Negative NA N egative Syphilis Ab Screen with Reflex - 9 02:45 Syphilis Ab Screen with Reflex Negative NA Negative Quantiferon TB Test - 03/14/19 02:45 Quantiferon TB Test Indeterminate NA Neg ative CBC With Platelet No Differential - 02/27 02/15 02:46 HCT 26.4 % 37.0-47.0 HGB 8.6 g/dL 12.0-16.0 MCH 34.0 pg 27.0-32.0 MCHC 32.6 g/dL 32.0-36.0 MCV 104.3 fL 82.0-99.0 MPV 12.4 fL 9.4-12.4 Platelet Count 166 K/uL 150-400 RBC 2.53 10*6/uL 4.00-5.20 RDW 19.8 % 11.5-14.5 WBC 10.8 K/uL 4.8-10.8 Renal Function Panel - 03/14/19 02:46 Albumin 1.5 g/dL 3.5-4.8 Anion Gap 10 mEq/L 3-20 BUN 4 mg/dL 4-20 Calcium 7.2 mg/dL 8.6-10.0 Chloride 93 mEq/L 99-109 CO2 35 mEq/L 22-32 Creatinine 0.63 mg/dL 0.44-1.03 Glucose 119 mg/dL 70-100 Phosphorus 1.8 mg/dL 2.4-4.7 Potassium 4.2 mEq/L 3.6-5.1 Sodium 138 mEq/L 136-144 Magnesium - 03/14/19 02:46 Magnesium 1.7 mg/dL 1.8-2.5 eGFR - 03/14/19 02:46 eGFR >60 mL/min >60 CBC With Platelet No Differential - 02/27 02/15 10:17 HCT 29.2 % 37.0-47.0 HGB 9.0 g/dL 12.0-16.0 MCH 32.8 pg 27.0-32.0 MCHC 30.8 g/dL 32.0-36.0 MCV 106.6 fL 82.0-99.0 MPV 12.5 fL 9.4-12.4 Platelet Count 203 K/uL 150-400 RBC 2.74 10*6/uL 4.00-5.20 RDW 19.3 % 11.5-14.5 WBC 14.5 K/uL 4.8-10.8 Troponin - 03/14/19 13:13 Troponin <0.05 ng/mL <0.06 Renal Function Panel - 03/14/19 13:13 Albumin 1.4 g/dL 3.5-4.8 Anion Gap 11 mEq/L 3-20 BUN 3 mg/dL 4-20 Calcium 6.8 mg/dL 8.6-10.0 Chloride 93 mEq/L 99-109 CO2 33 mEq/L 22-32 Creatinine 0.61 mg/dL 0.44-1.03 Glucose 122 mg/dL 70-100 Phosphorus 3.1 mg/dL 2.4-4.7 Potassium 4.2 mEq/L 3.6-5.1 Sodium 137 mEq/L 136-144 Magnesium - 03/14/19 13:13 Magnesium 2.1 mg/dL 1.8-2.5 eGFR - 03/14/19 13:13 eGFR >60 mL/min >60 CBC With Platelet No Differential - 02/27 03/17 02:27 HCT 19.0 % 37.0-47.0 HGB 6.0 g/dL 12.0-16.0 MCH 33.1 pg 27.0-32.0 MCHC 31.6 g/dL 32.0-36.0 MCV 105.0 fL 82.0-99.0 MPV 12.1 fL 9.4-12.4 Platelet Count 187 K/uL 150-400 RBC 1.81 10*6/uL 4.00-5.20 RDW 19.2 % 11.5-14.5 WBC 9.9 K/uL 4.8-10.8 Renal Function Panel - 03/15/19 02:27 Albumin 2.3 g/dL 3.5-4.8 Anion Gap 12 mEq/L 3-20 BUN 7 mg/dL 4-20 Calcium 7.4 mg/dL 8.6-10.0 Chloride 91 mEq/L 99-109 CO2 34 mEq/L 22-32 Creatinine 0.62 mg/dL 0.44-1.03 Glucose 126 mg/dL 70-100 Phosphorus 2.2 mg/dL 2.4-4.7 Potassium 3.3 mEq/L 3.6-5.1 Sodium 137 mEq/L 136-144 Magnesium - 03/15/19 02:27 Magnesium 1.9 mg/dL 1.8-2.5 eGFR - 03/15/19 02:27 eGFR >60 mL/min >60 Triglycerides - 03/15/19 02:27 Triglycerides 244 mg/dL 0-149 Prealbumin - 03/15/19 02:27 Prealbumin 9 mg/dL 18-38 ABO and Rh - 03/15/19 05:24 ABO and Rh NA Antibody Screen - 03/15/19 05:24 Antibody Screen NA Red Blood Cells - 03/15/19 05:24 Red Blood Cells NA Red Blood Cells - 03/15/19 05:24 Red Blood Cells NA Blood Gases, Arterial (RT) - 03/15/19 09 :00 Arterial Base Excess 16 NA 0-2 Arterial Bicarbonate 40 mEq/L 22-26 Arterial O2 Saturation 93.6 % 90.0-97 .0 Arterial PCO2 50 mmHg 35-45 Arterial PH 7.52 NA 7.35-7.45 Arterial PO2 58 mmHg 80-100 Arterial LPM 4.00 L/min O2 Panel Nasal Cannula CBC With Platelet No Differential - 02/27 03/17 14:18 HCT 23.1 % 37.0-47.0 HGB 7.6 g/dL 12.0-16.0 MCH 31.9 pg 27.0-32.0 MCHC 32.9 g/dL 32.0-36.0 MCV 97.1 fL 82.0-99.0 MPV 11.7 fL 9.4-12.4 Platelet Count 208 K/uL 150-400 RBC 2.38 10*6/uL 4.00-5.20 RDW 21.7 % 11.5-14.5 WBC 10.8 K/uL 4.8-10.8 Renal Function Panel - 03/15/19 14:18 Albumin 2.9 g/dL 3.5-4.8 Anion Gap 12 mEq/L 3-20 BUN 10 mg/dL 4-20 Calcium 7.5 mg/dL 8.6-10.0 Chloride 91 mEq/L 99-109 CO2 35 mEq/L 22-32 Creatinine 0.58 mg/dL 0.44-1.03 Glucose 98 mg/dL 70-100 Phosphorus 2.5 mg/dL 2.4-4.7 Potassium 3.4 mEq/L 3.6-5.1 Sodium 138 mEq/L 136-144 Bilirubin Total - 03/15/19 14:18 Bilirubin Total 1.2 mg/dL 0.2-1.2 eGFR - 03/15/19 14:18 eGFR >60 mL/min >60 Glucose NPT - 03/15/19 18:57 Glucose NPT 116 mg/dL 70-100 Protime (INR) - 03/15/19 23:26 INR 1.1 NA 0.9-1.2 Glucose NPT - 03/16/19 00:04 Glucose NPT 140 mg/dL 70-100 CBC With Platelet No Differential - 02/27 04/17 03:10 HCT 20.2 % 37.0-47.0 HGB 6.4 g/dL 12.0-16.0 MCH 31.5 pg 27.0-32.0 MCHC 31.7 g/dL 32.0-36.0 MCV 99.5 fL 82.0-99.0 MPV 11.3 fL 9.4-12.4 Platelet Count 239 K/uL 150-400 RBC 2.03 10*6/uL 4.00-5.20 RDW 21.3 % 11.5-14.5 WBC 10.2 K/uL 4.8-10.8 Renal Function Panel - 03/16/19 03:10 Albumin 3.0 g/dL 3.5-4.8 Anion Gap 12 mEq/L 3-20 BUN 13 mg/dL 4-20 Calcium 7.8 mg/dL 8.6-10.0 Chloride 97 mEq/L 99-109 CO2 32 mEq/L 22-32 Creatinine 0.59 mg/dL 0.44-1.03 Glucose 99 mg/dL 70-100 Phosphorus 2.4 mg/dL 2.4-4.7 Potassium 2.8 mEq/L 3.6-5.1 Sodium 141 mEq/L 136-144 Magnesium - 03/16/19 03:10 Magnesium 1.8 mg/dL 1.8-2.5 eGFR - 03/16/19 03:10 eGFR >60 mL/min >60 Calcium Ionized - 03/16/19 03:10 Calcium Ionized 1.16 mmol/L 1.19-1.41 Glucose NPT - 03/16/19 06:21 Glucose NPT 107 mg/dL 70-100 CBC With Platelet No Differential - 02/27 04/17 09:23 HCT 26.5 % 37.0-47.0 HGB 8.4 g/dL 12.0-16.0 MCH 31.5 pg 27.0-32.0 MCHC 31.7 g/dL 32.0-36.0 MCV 99.3 fL 82.0-99.0 MPV 11.3 fL 9.4-12.4 Platelet Count 259 K/uL 150-400 RBC 2.67 10*6/uL 4.00-5.20 RDW 19.7 % 11.5-14.5 WBC 9.5 K/uL 4.8-10.8 Renal Function Panel - 03/16/19 09:23 Albumin 2.9 g/dL 3.5-4.8 Anion Gap 11 mEq/L 3-20 BUN 13 mg/dL 4-20 Calcium 8.0 mg/dL 8.6-10.0 Chloride 98 mEq/L 99-109 CO2 30 mEq/L 22-32 Creatinine 0.57 mg/dL 0.44-1.03 Glucose 111 mg/dL 70-100 Phosphorus 2.6 mg/dL 2.4-4.7 Potassium 3.4 mEq/L 3.6-5.1 Sodium 139 mEq/L 136-144 eGFR - 03/16/19 09:23 eGFR >60 mL/min >60 Glucose NPT - 03/16/19 12:13 Glucose NPT 123 mg/dL 70-100 Glucose NPT - 03/16/19 17:27 Glucose NPT 115 mg/dL 70-100 CBC With Platelet No Differential - 02/27 05/18 02:27 HCT 25.5 % 37.0-47.0 HGB 8.2 g/dL 12.0-16.0 MCH 31.9 pg 27.0-32.0 MCHC 32.2 g/dL 32.0-36.0 MCV 99.2 fL 82.0-99.0 MPV 11.0 fL 9.4-12.4 Platelet Count 302 K/uL 150-400 RBC 2.57 10*6/uL 4.00-5.20 RDW 18.9 % 11.5-14.5 WBC 8.8 K/uL 4.8-10.8 Renal Function Panel - 03/17/19 02:27 Albumin 2.5 g/dL 3.5-4.8 Anion Gap 10 mEq/L 3-20 BUN 14 mg/dL 4-20 Calcium 8.2 mg/dL 8.6-10.0 Chloride 103 mEq/L 99-109 CO2 25 mEq/L 22-32 Creatinine 0.53 mg/dL 0.44-1.03 Glucose 95 mg/dL 70-100 Phosphorus 3.3 mg/dL 2.4-4.7 Potassium 3.4 mEq/L 3.6-5.1 Sodium 138 mEq/L 136-144 Magnesium - 03/17/19 02:27 Magnesium 1.9 mg/dL 1.8-2.5 eGFR - 03/17/19 02:27 eGFR >60 mL/min >60 Calcium Ionized - 03/17/19 02:27 Calcium Ionized 12.10 mmol/L 1.19-1.41 Glucose NPT - 03/17/19 06:31 Glucose NPT 110 mg/dL 70-100 Glucose NPT - 03/17/19 12:47 Glucose NPT 104 mg/dL 70-100 Glucose NPT - 03/17/19 18:45 Glucose NPT 100 mg/dL 70-100 Glucose NPT - 03/17/19 23:57 Glucose NPT 112 mg/dL 70-100 CBC With Platelet No Differential - 02/28 06:04 HCT 26.6 % 37.0-47.0 HGB 8.6 g/dL 12.0-16.0 MCH 31.9 pg 27.0-32.0 MCHC 32.3 g/dL 32.0-36.0 MCV 98.5 fL 82.0-99.0 MPV 10.5 fL 9.4-12.4 Platelet Count 394 K/uL 150-400 RBC 2.70 10*6/uL 4.00-5.20 RDW 19.1 % 11.5-14.5 WBC 10.6 K/uL 4.8-10.8 Renal Function Panel - 03/18/19 06:04 Albumin 2.4 g/dL 3.5-4.8 Anion Gap 10 mEq/L 3-20 BUN 14 mg/dL 4-20 Calcium 8.7 mg/dL 8.6-10.0 Chloride 107 mEq/L 99-109 CO2 21 mEq/L 22-32 Creatinine 0.52 mg/dL 0.44-1.03 Glucose 96 mg/dL 70-100 Phosphorus 4.2 mg/dL 2.4-4.7 Potassium 4.2 mEq/L 3.6-5.1 Sodium 138 mEq/L 136-144 Magnesium - 03/18/19 06:04 Magnesium 1.5 mg/dL 1.8-2.5 eGFR - 03/18/19 06:04 eGFR >60 mL/min >60 Calcium Ionized - 03/18/19 06:04 Calcium Ionized 1.32 mmol/L 1.19-1.41 Glucose NPT - 03/18/19 06:48 Glucose NPT 104 mg/dL 70-100 Glucose NPT - 03/18/19 11:29 Glucose NPT 106 mg/dL 70-100 Glucose NPT - 03/18/19 18:28 Glucose NPT 101 mg/dL 70-100 Glucose NPT - 03/18/19 23:23 Glucose NPT 102 mg/dL 70-100 Glucose NPT - 03/19/19 05:39 Glucose NPT 113 mg/dL 70-100 CBC With Platelet No Differential - 02/28 09/17 06:04 HCT 23.9 % 37.0-47.0 HGB 7.7 g/dL 12.0-16.0 MCH 31.8 pg 27.0-32.0 MCHC 32.2 g/dL 32.0-36.0 MCV 98.8 fL 82.0-99.0 MPV 10.7 fL 9.4-12.4 Platelet Count 474 K/uL 150-400 RBC 2.42 10*6/uL 4.00-5.20 RDW 19.3 % 11.5-14.5 WBC 10.9 K/uL 4.8-10.8 Magnesium - 03/19/19 06:04 Magnesium 1.8 mg/dL 1.8-2.5 Renal Function Panel - 03/19/19 06:04 Albumin 2.2 g/dL 3.5-4.8 Anion Gap 9 mEq/L 3-20 BUN 17 mg/dL 4-20 Calcium 8.4 mg/dL 8.6-10.0 Chloride 100 mEq/L 99-109 CO2 25 mEq/L 22-32 Creatinine 0.50 mg/dL 0.44-1.03 Glucose 101 mg/dL 70-100 Phosphorus 4.4 mg/dL 2.4-4.7 Potassium 3.8 mEq/L 3.6-5.1 Sodium 134 mEq/L 136-144 eGFR - 03/19/19 06:04 eGFR >60 mL/min >60 Calcium Ionized - 03/19/19 06:04 Calcium Ionized 1.28 mmol/L 1.19-1.41 Glucose NPT - 03/19/19 12:02 Glucose NPT 106 mg/dL 70-100 Glucose NPT - 03/19/19 17:53 Glucose NPT 117 mg/dL 70-100 Glucose NPT - 03/19/19 21:22 Glucose NPT 103 mg/dL 70-100 Glucose NPT - 03/20/19 05:09 Glucose NPT 101 mg/dL 70-100 CBC With Platelet No Differential - 02/28 10/18 05:11 HCT 23.4 % 37.0-47.0 HGB 7.6 g/dL 12.0-16.0 MCH 32.1 pg 27.0-32.0 MCHC 32.5 g/dL 32.0-36.0 MCV 98.7 fL 82.0-99.0 MPV 10.3 fL 9.4-12.4 Platelet Count 526 K/uL 150-400 RBC 2.37 10*6/uL 4.00-5.20 RDW 19.7 % 11.5-14.5 WBC 8.4 K/uL 4.8-10.8 Renal Function Panel - 03/20/19 05:11 Albumin 2.4 g/dL 3.5-4.8 Anion Gap 13 mEq/L 3-20 BUN 16 mg/dL 4-20 Calcium 8.6 mg/dL 8.6-10.0 Chloride 98 mEq/L 99-109 CO2 25 mEq/L 22-32 Creatinine 0.50 mg/dL 0.44-1.03 Glucose 100 mg/dL 70-100 Phosphorus 4.4 mg/dL 2.4-4.7 Potassium 4.1 mEq/L 3.6-5.1 Sodium 136 mEq/L 136-144 Magnesium - 03/20/19 05:11 Magnesium 1.7 mg/dL 1.8-2.5 eGFR - 03/20/19 05:11 eGFR >60 mL/min >60 Triglycerides - 03/20/19 05:11 Triglycerides 166 mg/dL 0-149 Glucose NPT - 03/20/19 12:38 Glucose NPT 103 mg/dL 70-100 CBC With Platelet No Differential - 02/28 11/15 05:15 HCT 23.8 % 37.0-47.0 HGB 7.7 g/dL 12.0-16.0 MCH 32.2 pg 27.0-32.0 MCHC 32.4 g/dL 32.0-36.0 MCV 99.6 fL 82.0-99.0 MPV 10.0 fL 9.4-12.4 Platelet Count 583 K/uL 150-400 RBC 2.39 10*6/uL 4.00-5.20 RDW 19.7 % 11.5-14.5 WBC 10.3 K/uL 4.8-10.8 Magnesium - 03/21/19 05:15 Magnesium 1.6 mg/dL 1.8-2.5 Renal Function Panel - 03/21/19 05:15 Albumin 2.5 g/dL 3.5-4.8 Anion Gap 13 mEq/L 3-20 BUN 12 mg/dL 4-20 Calcium 8.7 mg/dL 8.6-10.0 Chloride 98 mEq/L 99-109 CO2 27 mEq/L 22-32 Creatinine 0.56 mg/dL 0.44-1.03 Glucose 93 mg/dL 70-100 Phosphorus 4.4 mg/dL 2.4-4.7 Potassium 4.3 mEq/L 3.6-5.1 Sodium 138 mEq/L 136-144 eGFR - 03/21/19 05:15 eGFR >60 mL/min >60 CBC With Platelet No Differential - 02/28 12/16 06:16 HCT 27.0 % 37.0-47.0 HGB 8.5 g/dL 12.0-16.0 MCH 31.7 pg 27.0-32.0 MCHC 31.5 g/dL 32.0-36.0 MCV 100.7 fL 82.0-99.0 MPV 10.2 fL 9.4-12.4 Platelet Count 709 K/uL 150-400 RBC 2.68 10*6/uL 4.00-5.20 RDW 19.6 % 11.5-14.5 WBC 7.6 K/uL 4.8-10.8 Renal Function Panel - 03/22/19 06:16 Albumin 2.6 g/dL 3.5-4.8 Anion Gap 12 mEq/L 3-20 BUN 13 mg/dL 4-20 Calcium 8.7 mg/dL 8.6-10.0 Chloride 100 mEq/L 99-109 CO2 27 mEq/L 22-32 Creatinine 0.57 mg/dL 0.44-1.03 Glucose 101 mg/dL 70-100 Phosphorus 3.7 mg/dL 2.4-4.7 Potassium 3.9 mEq/L 3.6-5.1 Sodium 139 mEq/L 136-144 Magnesium - 03/22/19 06:16 Magnesium 1.9 mg/dL 1.8-2.5 eGFR - 03/22/19 06:16 eGFR >60 mL/min >60 CBC With Platelet No Differential - 02/28 01/15 04:36 HCT 24.7 % 37.0-47.0 HGB 7.9 g/dL 12.0-16.0 MCH 32.4 pg 27.0-32.0 MCHC 32.0 g/dL 32.0-36.0 MCV 101.2 fL 82.0-99.0 MPV 10.2 fL 9.4-12.4 Platelet Count 694 K/uL 150-400 RBC 2.44 10*6/uL 4.00-5.20 RDW 19.4 % 11.5-14.5 WBC 7.9 K/uL 4.8-10.8 Renal Function Panel - 03/23/19 04:36 Albumin 2.5 g/dL 3.5-4.8 Anion Gap 15 mEq/L 3-20 BUN 9 mg/dL 4-20 Calcium 9.0 mg/dL 8.6-10.0 Chloride 98 mEq/L 99-109 CO2 27 mEq/L 22-32 Creatinine 0.72 mg/dL 0.44-1.03 Glucose 102 mg/dL 70-100 Phosphorus 4.6 mg/dL 2.4-4.7 Potassium 4.3 mEq/L 3.6-5.1 Sodium 140 mEq/L 136-144 eGFR - 03/23/19 04:36 eGFR >60 mL/min >60 CBC With Platelet No Differential - 02/28 02/15 04:50 HCT 23.4 % 37.0-47.0 HGB 7.4 g/dL 12.0-16.0 MCH 32.0 pg 27.0-32.0 MCHC 31.6 g/dL 32.0-36.0 MCV 101.3 fL 82.0-99.0 MPV 10.1 fL 9.4-12.4 Platelet Count 689 K/uL 150-400 RBC 2.31 10*6/uL 4.00-5.20 RDW 19.1 % 11.5-14.5 WBC 10.3 K/uL 4.8-10.8 Renal Function Panel - 03/24/19 04:50 Albumin 2.5 g/dL 3.5-4.8 Anion Gap 14 mEq/L 3-20 BUN 9 mg/dL 4-20 Calcium 8.8 mg/dL 8.6-10.0 Chloride 101 mEq/L 99-109 CO2 25 mEq/L 22-32 Creatinine 0.63 mg/dL 0.44-1.03 Glucose 91 mg/dL 70-100 Phosphorus 4.6 mg/dL 2.4-4.7 Potassium 3.9 mEq/L 3.6-5.1 Sodium 140 mEq/L 136-144 Magnesium - 03/24/19 04:50 Magnesium 1.6 mg/dL 1.8-2.5 eGFR - 03/24/19 04:50 eGFR >60 mL/min >60 B-Type Natriuretic Peptide - 03/24/19 04 :50 B-Type Natriuretic Peptide 412 pg/mL 0-9 9 CBC With Platelet No Differential - 11/29 03/18 18:10 HCT 31.5 % 37.0-47.0 HGB 10.4 g/dL 12.0-16.0 MCH 31.6 pg 27.0-32.0 MCHC 33.0 g/dL 32.0-36.0 MCV 95.7 fL 82.0-99.0 MPV 9.4 fL 9.4-12.4 Platelet Count 327 K/uL 150-400 RBC 3.29 10*6/uL 4.00-5.20 RDW 16.9 % 11.5-14.5 WBC 11.8 K/uL 4.8-10.8 Lipase - 12/25/19 18:10 Lipase 21 U/L 8-48 Alcohol, Blood - 12/25/19 18:10 Alcohol, Blood 142 mg/dL None Detected Comprehensive Metabolic Panel (CMP) - 18:10 Albumin 2.7 g/dL 3.5-4.8 Alkaline Phosphatase 103 U/L 26-104 ALT (SGPT) 9 U/L 14-54 Anion Gap 11 mEq/L 3-20 AST (SGOT) 14 U/L 15-41 Bilirubin Total 0.4 mg/dL 0.2-1.2 BUN 16 mg/dL 4-20 Calcium 7.9 mg/dL 8.6-10.0 Chloride 94 mEq/L 99-109 CO2 29 mEq/L 22-32 Creatinine 0.87 mg/dL 0.44-1.03 Globulin 2.8 g/dL 1.9-4.3 Glucose 107 mg/dL 70-100 Potassium 2.7 mEq/L 3.6-5.1 Protein 5.5 g/dL 6.1-7.9 Sodium 134 mEq/L 136-144 eGFR - 12/25/19 18:10 eGFR >60 mL/min >60 Troponin - 12/25/19 18:10 Troponin <0.05 ng/mL <0.06 CBC With Platelet No Differential - 12/28 10/19 08:22 HCT 43.6 % 37.0-47.0 HGB 14.4 g/dL 12.0-16.0 MCH 30.4 pg 27.0-32.0 MCHC 33.0 g/dL 32.0-36.0 MCV 92.2 fL 82.0-99.0 MPV 9.1 fL 9.4-12.4 Platelet Count 432 K/uL 150-400 RBC 4.73 10*6/uL 4.00-5.20 RDW 16.8 % 11.5-14.5 WBC 7.7 K/uL 4.8-10.8 Magnesium - 01/09/20 08:22 Magnesium 1.8 mg/dL 1.8-2.5 Comprehensive Metabolic Panel (CMP) - 08:22 Albumin 3.4 g/dL 3.5-4.8 Alkaline Phosphatase 177 U/L 26-104 ALT (SGPT) 17 U/L 14-54 Anion Gap 17 mEq/L 3-20 AST (SGOT) 32 U/L 15-41 Bilirubin Total 0.9 mg/dL 0.2-1.2 BUN 6 mg/dL 4-20 Calcium 8.5 mg/dL 8.6-10.0 Chloride 97 mEq/L 99-109 CO2 26 mEq/L 22-32 Creatinine 1.02 mg/dL 0.44-1.03 Globulin 4.3 g/dL 1.9-4.3 Glucose 138 mg/dL 70-100 Potassium 2.2 mEq/L 3.6-5.1 Protein 7.7 g/dL 6.1-7.9 Sodium 140 mEq/L 136-144 Lipase - 01/09/20 08:22 Lipase 29 U/L 8-48 eGFR - 01/09/20 08:22 eGFR 55 mL/min >60 Troponin - 01/09/20 08:22 Troponin <0.05 ng/mL <0.06 Alcohol, Blood - 01/09/20 08:22 Alcohol, Blood 114 mg/dL None Detected Protime (INR) - 01/09/20 08:22 INR 1.0 NA 0.9-1.2 Glucose NPT - 01/09/20 16:43 Glucose NPT 93 mg/dL 70-100 Basic Metabolic Panel (BMP) - 01/10/20 0 3:33 Anion Gap 13 mEq/L 3-20 BUN 7 mg/dL 4-20 Calcium 8.6 mg/dL 8.6-10.0 Chloride 97 mEq/L 99-109 CO2 27 mEq/L 22-32 Creatinine 1.01 mg/dL 0.44-1.03 Glucose 104 mg/dL 70-100 Potassium 3.2 mEq/L 3.6-5.1 Sodium 137 mEq/L 136-144 eGFR - 01/10/20 03:33 eGFR 56 mL/min >60 Renin Activity - 01/10/20 10:51 Renin Activity 1.7 ng/mL/h Aldosterone, S - 01/10/20 10:51 Aldosterone, S <4.0 ng/dL <=21 CBC With Platelet No Differential - 10/19 19:36 HCT 40.8 % 37.0-47.0 HGB 13.7 g/dL 12.0-16.0 MCH 30.0 pg 27.0-32.0 MCHC 33.6 g/dL 32.0-36.0 MCV 89.3 fL 82.0-99.0 MPV 10.5 fL 9.4-12.4 Platelet Count 199 K/uL 150-400 RBC 4.57 10*6/uL 4.00-5.20 RDW 18.5 % 11.5-14.5 WBC 11.5 K/uL 4.8-10.8 Troponin - 01/30/20 19:36 Troponin 0.05 ng/mL <0.06 Comprehensive Metabolic Panel (CMP) - 19:36 Albumin 1.9 g/dL 3.5-4.8 Alkaline Phosphatase 232 U/L 26-104 ALT (SGPT) 18 U/L 14-54 Anion Gap 13 mEq/L 3-20 AST (SGOT) 42 U/L 15-41 Bilirubin Total 0.9 mg/dL 0.2-1.2 BUN 8 mg/dL 4-20 Calcium 7.1 mg/dL 8.6-10.0 Chloride 94 mEq/L 99-109 CO2 25 mEq/L 22-32 Creatinine 0.85 mg/dL 0.44-1.03 Globulin 3.3 g/dL 1.9-4.3 Glucose 126 mg/dL 70-100 Potassium 2.5 mEq/L 3.6-5.1 Protein 5.2 g/dL 6.1-7.9 Sodium 132 mEq/L 136-144 Lipase - 01/30/20 19:36 Lipase 27 U/L 8-48 eGFR - 01/30/20 19:36 eGFR >60 mL/min >60 Magnesium - 01/30/20 19:36 Magnesium 1.8 mg/dL 1.8-2.5 Lactic Acid NPT - 01/30/20 19:41 Lactic Acid NPT 5.6 mEq/L 0.5-2.0 Lactic Acid NPT - 01/30/20 20:14 Lactic Acid NPT 5.5 mEq/L 0.5-2.0 Lactic Acid Venous - 01/30/20 23:15 Lactic Acid Venous 5.5 mEq/L 0.5-2.0 Urinalysis with reflex microscopic - 11/16 02:15 Appearance Sl Cloudy NA Bilirubin Negative NA Negative Blood Negative NA Negative Color Yellow NA Glucose, Urine Negative Negative Ketones Negative Negative Leukocyte Esterase Pos 2+ NA Negative Nitrites Negative NA Negative pH 6.0 NA 5.0-8.0 Protein Negative NA Negative Specific [place] 1.035 NA 1.003-1.030 UA Collection type Not Specified NA Urobilinogen 2.0 mg/dL <1.0 Urine Microscopic - 01/31/20 02:15 Bacteria Numerous NA None Seen-Rare Epithelial Cells 0 /HPF 0-5 RBC, Urine 0 /HPF 0-2 Urine Mucus Present NA WBC, Urine 10 /HPF 0-4 CBC With Platelet and Differential - 11/16 05:23 Absolute Basophils 0.01 10*3/uL 0.00-0.2 0 Absolute Eosinophils 0.01 10*3/uL 0.00-0 .50 Absolute Lymphocytes 1.33 10*3/uL 0.80-3 .30 Absolute Monocytes 0.78 10*3/uL 0.30-1.0 0 Absolute Neutrophils 11.12 10*3/uL 1.90- 7.00 Basophils 0 % 0-2 Eosinophils 0 % 0-4 HCT 37.2 % 37.0-47.0 HGB 12.2 g/dL 12.0-16.0 Immature Granulocytes 0.4 % 0.0-1.0 Lymphocytes 10 % 20-46 MCH 29.6 pg 27.0-32.0 MCHC 32.8 g/dL 32.0-36.0 MCV 90.3 fL 82.0-99.0 Monocytes 6 % 4-11 MPV 10.1 fL 9.4-12.4 Neutrophils 84 % 51-75 Nucleated RBC Automated 0.0 /100 WBC Platelet Count 151 K/uL 150-400 RBC 4.12 10*6/uL 4.00-5.20 RDW 19.1 % 11.5-14.5 WBC 13.3 K/uL 4.8-10.8 Comprehensive Metabolic Panel (CMP) - 05:23 Albumin 1.9 g/dL 3.5-4.8 Alkaline Phosphatase 215 U/L 26-104 ALT (SGPT) 19 U/L 14-54 Anion Gap 11 mEq/L 3-20 AST (SGOT) 43 U/L 15-41 Bilirubin Total 1.1 mg/dL 0.2-1.2 BUN 8 mg/dL 4-20 Calcium 6.9 mg/dL 8.6-10.0 Chloride 103 mEq/L 99-109 CO2 23 mEq/L 22-32 Creatinine 1.02 mg/dL 0.44-1.03 Globulin 2.9 g/dL 1.9-4.3 Glucose 106 mg/dL 70-100 Potassium 3.3 mEq/L 3.6-5.1 Protein 4.8 g/dL 6.1-7.9 Sodium 137 mEq/L 136-144 eGFR - 01/31/20 05:23 eGFR 55 mL/min >60 Lactic Acid Venous - 01/31/20 09:28 Lactic Acid Venous 4.5 mEq/L 0.5-2.0 Lactic Acid Venous - 01/31/20 14:50 Lactic Acid Venous 2.5 mEq/L 0.5-2.0 CBC With Platelet No Differential - 12/17 05:17 HCT 36.7 % 37.0-47.0 HGB 11.9 g/dL 12.0-16.0 MCH 29.9 pg 27.0-32.0 MCHC 32.4 g/dL 32.0-36.0 MCV 92.2 fL 82.0-99.0 MPV 10.3 fL 9.4-12.4 Platelet Count 135 K/uL 150-400 RBC 3.98 10*6/uL 4.00-5.20 RDW 19.3 % 11.5-14.5 WBC 5.8 K/uL 4.8-10.8 Lactic Acid Venous - 02/01/20 05:17 Lactic Acid Venous 1.0 mEq/L 0.5-2.0 Comprehensive Metabolic Panel (CMP) - 05:17 Albumin 1.8 g/dL 3.5-4.8 Alkaline Phosphatase 179 U/L 26-104 ALT (SGPT) 42 U/L 14-54 Anion Gap 9 mEq/L 3-20 AST (SGOT) 146 U/L 15-41 Bilirubin Total 1.4 mg/dL 0.2-1.2 BUN 8 mg/dL 4-20 Calcium 7.6 mg/dL 8.6-10.0 Chloride 94 mEq/L 99-109 CO2 27 mEq/L 22-32 Creatinine 1.02 mg/dL 0.44-1.03 Globulin 3.0 g/dL 1.9-4.3 Glucose 94 mg/dL 70-100 Potassium 3.2 mEq/L 3.6-5.1 Protein 4.8 g/dL 6.1-7.9 Sodium 130 mEq/L 136-144 Magnesium - 02/01/20 05:17 Magnesium 1.4 mg/dL 1.8-2.5 eGFR - 02/01/20 05:17 eGFR 55 mL/min >60 Magnesium - 02/02/20 05:42 Magnesium 1.8 mg/dL 1.8-2.5 Comprehensive Metabolic Panel (CMP) - 05:42 Albumin 1.9 g/dL 3.5-4.8 Alkaline Phosphatase 165 U/L 26-104 ALT (SGPT) 46 U/L 14-54 Anion Gap 13 mEq/L 3-20 AST (SGOT) 108 U/L 15-41 Bilirubin Total 1.0 mg/dL 0.2-1.2 BUN 8 mg/dL 4-20 Calcium 7.4 mg/dL 8.6-10.0 Chloride 93 mEq/L 99-109 CO2 22 mEq/L 22-32 Creatinine 1.24 mg/dL 0.44-1.03 Globulin 2.8 g/dL 1.9-4.3 Glucose 89 mg/dL 70-100 Potassium 3.2 mEq/L 3.6-5.1 Protein 4.7 g/dL 6.1-7.9 Sodium 128 mEq/L 136-144 eGFR - 02/02/20 05:42 eGFR 44 mL/min >60 Troponin - 02/02/20 07:49 Troponin <0.05 ng/mL <0.06 CBC With Platelet and Differential - 20:10 Absolute Basophils 0.02 10*3/uL 0.00-0.2 0 Absolute Eosinophils 0.08 10*3/uL 0.00-0 .50 Absolute Lymphocytes 2.76 10*3/uL 0.80-3 .30 Absolute Monocytes 0.49 10*3/uL 0.30-1.0 0 Absolute Neutrophils 6.53 10*3/uL 1.90-7 .00 Basophils 0 % 0-2 Differential Scanned Slide NA Eosinophils 1 % 0-4 HCT 42.2 % 37.0-47.0 HGB 14.1 g/dL 12.0-16.0 Immature Granulocytes 0.1 % 0.0-1.0 Lymphocytes 28 % 20-46 MCH 31.1 pg 27.0-32.0 MCHC 33.4 g/dL 32.0-36.0 MCV 93.0 fL 82.0-99.0 Monocytes 5 % 4-11 MPV 10.0 fL 9.4-12.4 Neutrophils 66 % 51-75 Nucleated RBC Automated 0.0 /100 WBC Platelet Count 414 K/uL 150-400 RBC 4.54 10*6/uL 4.00-5.20 RDW 21.3 % 11.5-14.5 WBC 9.9 K/uL 4.8-10.8 Protime (INR) - 02/10/20 20:10 INR 1.0 NA 0.9-1.2 Comprehensive Metabolic Panel (CMP) - 20:10 Albumin 2.0 g/dL 3.5-4.8 Alkaline Phosphatase 210 U/L 26-104 ALT (SGPT) 24 U/L 14-54 Anion Gap 18 mEq/L 3-20 AST (SGOT) 37 U/L 15-41 Bilirubin Total 0.7 mg/dL 0.2-1.2 BUN 3 mg/dL 4-20 Calcium 7.4 mg/dL 8.6-10.0 Chloride 98 mEq/L 99-109 CO2 24 mEq/L 22-32 Creatinine 0.77 mg/dL 0.44-1.03 Globulin 3.5 g/dL 1.9-4.3 Glucose 121 mg/dL 70-100 Potassium 2.5 mEq/L 3.6-5.1 Protein 5.5 g/dL 6.1-7.9 Sodium 140 mEq/L 136-144 Lipase - 02/10/20 20:10 Lipase 22 U/L 8-48 Alcohol, Blood - 02/10/20 20:10 Alcohol, Blood 323 mg/dL None Detected eGFR - 02/10/20 20:10 eGFR >60 mL/min >60 Magnesium - 02/10/20 20:10 Magnesium 1.9 mg/dL 1.8-2.5 Salicylate - 02/10/20 20:10 Salicylate <4 mg/dL 0-30 Acetaminophen - 02/10/20 20:10 Acetaminophen <10 mcg/mL 10-30 Lactic Acid NPT - 02/10/20 20:16 Lactic Acid NPT 5.0 mEq/L 0.5-2.0 Troponin - 02/10/20 23:02 Troponin <0.05 ng/mL <0.06 Lactic Acid Venous - 02/10/20 23:02 Lactic Acid Venous 4.4 mEq/L 0.5-2.0 Urinalysis with reflex microscopic - 00:43 Appearance Clear NA Bilirubin Negative NA Negative Blood Negative NA Negative Color Yellow NA Glucose, Urine Negative Negative Ketones Negative Negative Leukocyte Esterase Negative NA Negative Nitrites Negative NA Negative pH 7.0 NA 5.0-8.0 Protein Negative NA Negative Specific [place] 1.020 NA 1.003-1.030 UA Collection type Clean Catch NA Urobilinogen 4.0 mg/dL <1.0 Urine Drug Screen - 02/11/20 00:45 Tricyclics Not Detected NA Not Detected Amph/Meth/Ecstasy Not Detected NA Not De tected Barbiturates Not Detected NA Not Detecte d Benzodiazepine Not Detected NA Not Detec irma Cannabinoid Not Detected NA Not Detected Cocaine Not Detected NA Not Detected EDDP (Methadone met.) Not Detected NA No t Detected Opiate Not Detected NA Not Detected Phencyclidine (PCP) Not Detected NA Not Detected CBC With Platelet and Differential - 03:13 Absolute Basophils 0.02 10*3/uL 0.00-0.2 0 Absolute Eosinophils 0.04 10*3/uL 0.00-0 .50 Absolute Lymphocytes 0.41 10*3/uL 0.80-3 .30 Absolute Monocytes 0.00 10*3/uL 0.30-1.0 0 Absolute Neutrophils 13.39 10*3/uL 1.90- 7.00 Basophils 0 % 0-2 Differential Reviewed NA Eosinophils 0 % 0-4 HCT 36.2 % 37.0-47.0 HGB 12.1 g/dL 12.0-16.0 Lymphocytes 3 % 20-46 MCH 31.3 pg 27.0-32.0 MCHC 33.4 g/dL 32.0-36.0 MCV 93.8 fL 82.0-99.0 Monocytes 4 % 4-11 MPV 10.1 fL 9.4-12.4 Neutrophils 97 % 51-75 Nucleated RBC Automated 0.6 /100 WBC Platelet Count 373 K/uL 150-400 Polychromasia Occasional NA Not Seen RBC 3.86 10*6/uL 4.00-5.20 RDW 21.5 % 11.5-14.5 WBC 13.8 K/uL 4.8-10.8 Magnesium - 02/11/20 03:13 Magnesium 1.6 mg/dL 1.8-2.5 Comprehensive Metabolic Panel (CMP) - 03:13 Albumin 1.7 g/dL 3.5-4.8 Alkaline Phosphatase 179 U/L 26-104 ALT (SGPT) 20 U/L 14-54 Anion Gap 15 mEq/L 3-20 AST (SGOT) 37 U/L 15-41 Bilirubin Total 0.8 mg/dL 0.2-1.2 BUN 4 mg/dL 4-20 Calcium 6.7 mg/dL 8.6-10.0 Chloride 96 mEq/L 99-109 CO2 24 mEq/L 22-32 Creatinine 0.88 mg/dL 0.44-1.03 Globulin 2.9 g/dL 1.9-4.3 Glucose 121 mg/dL 70-100 Potassium 2.8 mEq/L 3.6-5.1 Protein 4.6 g/dL 6.1-7.9 Sodium 135 mEq/L 136-144 eGFR - 02/11/20 03:13 eGFR >60 mL/min >60 Lactic Acid Venous - 02/11/20 03:18 Lactic Acid Venous 5.1 mEq/L 0.5-2.0 Lactic Acid Venous - 02/11/20 11:49 Lactic Acid Venous 4.8 mEq/L 0.5-2.0 Lactic Acid Venous - 02/11/20 16:00 Lactic Acid Venous 4.4 mEq/L 0.5-2.0 CBC With Platelet No Differential - 01/28 01/16 02:57 HCT 32.5 % 37.0-47.0 HGB 10.7 g/dL 12.0-16.0 MCH 30.9 pg 27.0-32.0 MCHC 32.9 g/dL 32.0-36.0 MCV 93.9 fL 82.0-99.0 MPV 10.9 fL 9.4-12.4 Platelet Count 263 K/uL 150-400 RBC 3.46 10*6/uL 4.00-5.20 RDW 22.0 % 11.5-14.5 WBC 10.1 K/uL 4.8-10.8 Renal Function Panel - 02/12/20 02:58 Albumin 1.4 g/dL 3.5-4.8 Anion Gap 8 mEq/L 3-20 BUN 7 mg/dL 4-20 Calcium 7.0 mg/dL 8.6-10.0 Chloride 100 mEq/L 99-109 CO2 24 mEq/L 22-32 Creatinine 0.98 mg/dL 0.44-1.03 Glucose 87 mg/dL 70-100 Phosphorus 2.5 mg/dL 2.4-4.7 Potassium 4.1 mEq/L 3.6-5.1 Sodium 132 mEq/L 136-144 eGFR - 02/12/20 02:58 eGFR 58 mL/min >60 CBC With Platelet No Differential - 01/28 02/16 03:47 HCT 30.5 % 37.0-47.0 HGB 10.0 g/dL 12.0-16.0 MCH 31.2 pg 27.0-32.0 MCHC 32.8 g/dL 32.0-36.0 MCV 95.0 fL 82.0-99.0 MPV 11.4 fL 9.4-12.4 Platelet Count 176 K/uL 150-400 RBC 3.21 10*6/uL 4.00-5.20 RDW 22.6 % 11.5-14.5 WBC 9.6 K/uL 4.8-10.8 Renal Function Panel - 02/13/20 03:47 Albumin 1.4 g/dL 3.5-4.8 Anion Gap 7 mEq/L 3-20 BUN 5 mg/dL 4-20 Calcium 6.7 mg/dL 8.6-10.0 Chloride 99 mEq/L 99-109 CO2 25 mEq/L 22-32 Creatinine 1.03 mg/dL 0.44-1.03 Glucose 85 mg/dL 70-100 Phosphorus 2.8 mg/dL 2.4-4.7 Potassium 3.7 mEq/L 3.6-5.1 Sodium 131 mEq/L 136-144 eGFR - 02/13/20 03:47 eGFR 55 mL/min >60 Magnesium - 02/13/20 03:47 Magnesium 1.7 mg/dL 1.8-2.5 Protime (INR) - 02/13/20 11:00 INR 1.6 NA 0.9-1.2 Glucose NPT - 02/13/20 20:56 Glucose NPT 99 mg/dL 70-100 CBC With Platelet No Differential - 01/28 03/18 05:27 HCT 27.9 % 37.0-47.0 HGB 9.1 g/dL 12.0-16.0 MCH 31.3 pg 27.0-32.0 MCHC 32.6 g/dL 32.0-36.0 MCV 95.9 fL 82.0-99.0 MPV 11.2 fL 9.4-12.4 Platelet Count 160 K/uL 150-400 RBC 2.91 10*6/uL 4.00-5.20 RDW 22.9 % 11.5-14.5 WBC 8.0 K/uL 4.8-10.8 Magnesium - 02/14/20 05:27 Magnesium 2.0 mg/dL 1.8-2.5 Renal Function Panel - 02/14/20 05:27 Albumin 1.1 g/dL 3.5-4.8 Anion Gap 6 mEq/L 3-20 BUN 2 mg/dL 4-20 Calcium 6.5 mg/dL 8.6-10.0 Chloride 99 mEq/L 99-109 CO2 25 mEq/L 22-32 Creatinine 0.88 mg/dL 0.44-1.03 Glucose 105 mg/dL 70-100 Phosphorus 2.3 mg/dL 2.4-4.7 Potassium 3.3 mEq/L 3.6-5.1 Sodium 130 mEq/L 136-144 eGFR - 02/14/20 05:27 eGFR >60 mL/min >60 Iron Profile - 02/14/20 05:27 Iron 11 ug/dL 50-170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 structures demonstrate no acute abnormality. Included views of the upper abdominal structures demonstrate a large hiatal hernia. There is diffuse fatty infiltration of the liver, without focal lesions. Both adrenal glands are unremarkable. Bilateral renal cortical scarring is noted. IMPRESSION: 1. Multiple calcified granulomas, as described above, unchanged from CTA chest dated 01/06/2012. 2. No focal airspace consolidation. No pleural effusion. 3. Large hiatal hernia. [facility] NAME: BEVELRY SMITH [address] HP: [phone] AGE: 57 S:F [place] [address] : 1960 LOC: W.05849 1 PHYS: Taylor Robb MD R1 PHONE #: [phone] EXAM DATE: 07/22/2018 STATUS: ADM IN FAX #: [phone] A#: [id number] U#: [id number] PAGE 1 Signed Report (CONTINUED) PATIENT NAME: BEVERLY SMITH UNIT NO: [id number] EXAMS: CPT CODE: [id number] CT CHEST WITH CONTRAST 42219 <Continued> 4. Hepatic steatosis. No focal liver lesions. 5. Bilateral renal cortical scarring. I have personally reviewed these images and approved or corrected the resident physician's interpretation. at 1718 RESIDENT: SREE SCOTT MD Reported and signed by: CHARU OSORIO MD CC: Kerry Leggett MD TECHNOLOGIST: PATRICIA HOOD TRANSCRIBED DATE/Time: 07/22/2018 1718 BY: PKHICAMR EXAM COMPLETE DATE/TIME: [id number] 1500 D/TM:07/22/2018 (1724) [facility] NAME: BEVERLY SMITH [address] HP: [phone] AGE: 57 S:[place] [address] : 1960 LOC: W.69227 1 PHYS: Taylor Robb MD R1 PHONE #: [phone] EXAM DATE: 07/22/2018 STATUS: ADM IN FAX #: [phone] A#: [id number] U#: [id number] PAGE 2 Signed Report *Final Page* Radiology Report from [facility] on 10/27/19 19 15:32:00 PATIENT NAME: BEVERLY SMITH UNIT NO: [id number] EXAMS: CPT CODE: [id number] CT ABD/PELVIS WITH CONTRAST 07590 REASON FOR EXAM: Lower abdominal pain Time of the current examination: 10/27/2018 2:00 PM COMPARISON: 04/12/2018 TECHNIQUE: Helical images were obtained through the abdomen and pelvis with intravenous contrast . FINDINGS: There are trace bilateral pleural effusions with associated atelectasis. Calcified granuloma is seen involving the right lung base. Liver is markedly hypoattenuating consistent with hepatic steatosis. No enhancing hepatic lesion is identified. There is no biliary ductal dilatation. The main portal vein is patent. Both kidneys are small in size with a multilobulated appearance. Ureters are normal in caliber. The urinary bladder has a normal appearance. The spleen, pancreas, and adrenal glands have a normal appearance. There is no mesenteric or retroperitoneal adenopathy. There is a large hiatal hernia with hyperemia of the gastric mucosa is well as suggestion of mounded, edematous mucosa (image 5 series 2). The small bowel is normal in caliber. There is thickening of the colonic wall throughout the abdomen with suggestion of hyperemia, particularly involving the sigmoid colon. There is a small amount of abdominopelvic ascites. No free air or loculated collection. There is heavy aortic atherosclerosis without aneurysm. No pelvic mass or adenopathy. Skeletal structures demonstrate diffuse demineralization. [facility] NAME: BEVERLY SMITH [address] HP: [phone] AGE: 58 S:F [place], [place] [address] : 1960 LOC: WJORGE PHYS: Maite Soto PHONE #: [phone] EXAM DATE: 10/27/2018 STATUS: REG FAX #: [phone] A#: [id number] U#: [id number] PAGE 1 Signed Report (CONTINUED) PATIENT NAME: BEVERLY SMITH UNIT NO: [id number] EXAMS: CPT CODE: [id number] CT ABD/PELVIS WITH CONTRAST 97246 <Continued> IMPRESSION: 1. Large hiatal hernia containing the majority of the stomach. The gastric mucosa has an abnormally hyperemic appearance with a mounded appearance. These findings are suspicious for peptic ulcer disease. Consider correlation with endoscopy. 2. Thickened, hyperemic appearance of the colon. This could represent colitis versus portal venous colopathy. 3. Markedly steatotic liver. Small intra-abdominal ascites. 4. Lobulated, atrophic appearance of the kidneys bilaterally. 5. Small bilateral pleural effusions. Preliminary findings were discussed with Maite Rod on 10/27/2018 3:00 PM approximately by Rambo Falk. I have personally reviewed these images and approved or corrected the resident physician's interpretation. at 1527 RESIDENT: RAMBO FALK MD Reported and signed by: CARIE GOINS MD CC: TECHNOLOGIST: CHRISTO WALKER; PATRICIA HODGES TRANSCRIBED DATE/Time: 10/27/2018 1527 BY: FELIX EXAM COMPLETE DATE/TIME: 20181027 1400 D/TM:10/27/2018 (1532) [facility] NAME: BEVERLY SMITH [address] HP: [phone] AGE: 58 S:F [place], [place] [address] : 1960 LOC: OSKAR PHYS: Maite Soto PHONE #: [phone] EXAM DATE: 10/27/2018 STATUS: REG FAX #: [phone] A#: [id number] U#: [id number] PAGE 2 Signed Report *Final Page* Radiology Report from [facility] on 2018 07:09:00 PATIENT NAME: BEVERLY SMITH UNIT NO: [id number] EXAMS: CPT CODE: [id number] XR CHEST AP/PA ONLY 83491 TIME OF STUDY: 11/05/2018 6:31 AM REASON FOR EXAM: cough, chest pain COMPARISON: Chest x-ray dated the 2017 FINDINGS: Single frontal view of the chest was obtained. Lung volume is normal. Focal airspace opacity seen in the right lower lung.. No pleural effusion or pneumothorax. The cardiomediastinal silhouette and the pulmonary vascularity are within normal limits. No acute osseous abnormality is seen. IMPRESSION: 1. Focal infiltrate in the right lower lung I have personally reviewed these images and confirmed or corrected the resident physician's interpretation. at 0703 RESIDENT: CECILLE LAW MD Reported and signed by: SUE BLUE MD CC: TECHNOLOGIST: LUISA BAUM; CIERRA SAEEDNO TRANSCRIBED DATE/Time: 11/05/2018 0703 BY: PMATCMIW EXAM COMPLETE DATE/TIME: 20181105 D/TM:11/05/2018 (0709) [facility] NAME: BEVERLY SMITH [address] HP: [phone] AGE: 58 S:F [place] [address] : 1960 LOC: W[facility] PHYS: Fabby Thao PHONE #: [phone] EXAM DATE: 11/05/2018 STATUS: REG ER FAX #: [phone] A#: [id number] U#: [id number] PAGE 1 Signed Report *Final Page* Radiology Report from [facility] on 2018 21:18:00 PATIENT NAME: BEVERLY SMITH UNIT NO: [id number] EXAMS: CPT CODE: [id number] XR CHEST AP/PA ONLY 11945 TIME OF STUDY: 11/10/2018 8:55 PM REASON FOR EXAM: Chest pain, cough, and shortness of air.. COMPARISON: CXR 11/05/2018. CT chest 07/22/2018. FINDINGS: AP view of the chest was obtained. Lung volume is normal. There are bibasilar opacities, right greater than left. There are likely layering small to moderate bilateral pleural effusions, right greater than left. No pneumothorax. Normal cardiomediastinal silhouette. There is calcific aortic atherosclerosis. Normal pulmonary vascularity. No acute regional skeletal abnormality. IMPRESSION: Bibasilar opacities are concerning for multifocal infection with underlying atelectasis and small to moderate bilateral layering effusions likely. Recommend follow-up after the completion of therapy to document resolution and exclude underlying malignancy. I have personally reviewed these images and confirmed or corrected the resident physician's interpretation. at 2113 RESIDENT: HALLEY HOOK MD Reported and signed by: JING CORNEJO MD CC: Jorge Luis Alaniz MD TECHNOLOGIST: TIMO TRIPLETT TRANSCRIBED DATE/Time: 11/10/20182112 BY: PPAMOHIT EXAM COMPLETE DATE/TIME: 20181110 D/TM:11/10/2018 (2117) [facility] NAME: BEVERLY SMITH [address] HP: [phone] AGE: 58 S[facility] [facility] [address] [facility] 1960 LOC: OSKAR PHYS: EKJACQUI - Moriahren,tSeffanie H PHONE #: [phone] EXAM DATE: 11/10/2018 STATUS: REG FAX #: [phone] A#: [id number] U#: [id number] PAGE 1 Signed Report *Final Page* Radiology Report from [facility] on 11/12/19 19 13:29:00 PATIENT NAME: BEVERLY SMITH UNIT NO: [id number] EXAMS: CPT CODE: [id number] XR CHEST AP/PA ONLY 65808 REASON FOR EXAM: dyspnea TIME OF CURRENT STUDY: 11/11/2018 1:20 PM COMPARISON: 11/10/2008 FINDINGS: Single frontal view of the chest is obtained. The cardiomediastinal silhouette and the pulmonary vascularity are within normal limits. There is aortic atherosclerosis. Airspace opacities in the lung bases are improved. Calcified atheroma is present in the right lower lobe. No lobar areas of consolidation are seen. There are bilateral pleural effusions, decreased. Right pleural effusion extending into the major fissure. There are no pneumothoraces. The visualized osseous structures are unchanged. IMPRESSION: 1. Decrease bilateral effusions. 2. Decreased bibasilar airspace opacities could be due to improving atelectasis. at 1323 Reported and signed by: SHELLEY LYNN MD CC: Jorge Luis Alaniz MD TECHNOLOGIST: ROSA ANTOINE TRANSCRIBED DATE/Time: 11/11/2018 132 BY: PJOSHAKC EXAM COMPLETE DATE/TIME: 20181111 D/TM:11/11/2018 (1329) [facility] NAME: BEVERLY SMITH [address] HP: [phone] AGE: 58 S:F [place] [address] : 1960 LOC: W.EDS PHYS: Adrianna Carreno PHONE #: [phone] EXAM DATE: 11/11/2018 STATUS: REG ER FAX #: [phone] A#: [id number] U#: [id number] PAGE 1 Signed Report *Final Page* Radiology Report from [facility] on 11/12/19 19:52:00 PATIENT NAME: BEVERLY SMITH UNIT NO: [id number] EXAMS: CPT CODE: [id number] XR CHEST AP/PA ONLY 05139 REASON FOR EXAM: r/o perforation needs to be upright STUDY DATE: 11/11/2018 7:05 PM Comparison: Earlier the same day through 11/05/2018 AP view of the chest was obtained. Heart size is normal with central pulmonary vascular congestion. There are small/moderate pleural effusions present bilaterally that are relatively symmetric. There is associated bibasilar airspace opacity. The upper lobes are clear. No evidence of free air seen beneath the diaphragm. IMPRESSION: 1. No evidence of free intraperitoneal air. 2. Small/moderate bilateral pleural effusions that are relatively symmetric. There is associated bibasilar airspace opacity that is primarily atelectatic change. The pleural fluid volume has increased since of 11/05/2018 exam. at 1946 Reported and signed by: DEANNA BOYLE MD CC: Jorge Luis Alaniz MD TECHNOLOGIST: LIVAN VILLANUEVA TRANSCRIBED DATE/Time: 11/11/20181945 BY: PMCGUCHW EXAM COMPLETE DATE/TIME: 20181111 D/TM:11/11/2018 (1951) [facility] NAME: BEVERLY SMITH [address] HP: [phone] AGE: 58 S:F [place] [address] : 1960 LOC: W.ED1 2 PHYS: Deb Ghosh PHONE #: [phone] EXAM DATE: 11/11/2018 STATUS: ADM IN FAX #: [phone] A#: [id number] U#: [id number] PAGE 1 Signed Report *Final Page* Radiology Report from [facility] on 11/13/19 07:22:00 PATIENT NAME: BEVERLY SMITH UNIT NO: [id number] EXAMS: CPT CODE: [id number] US ABDOMEN 03568 REASON FOR EXAM: 58-year-old female for hepatitis TIME OF EXAM: 11/12/2018 5:55 AM COMPARISON: CT abdomen pelvis 10/27/2018, renal ultrasound 04/12/2018 TECHNIQUE: High-resolution grayscale and color-flow ultrasound of the abdomen was performed. FINDINGS: The liver demonstrates a micronodular contour with coarsened, diffusely hyperechoic echogenicity and poor acoustic transmission. There is no focal lesion. No intra or extrahepatic biliary dilatation is present. The common bile duct is not dilated and measures 3 mm. There is small volume perihepatic ascites identified. The gallbladder wall is thickened up to 4 mm. Trace pericholecystic fluid is identified. No stones are present in the gallbladder. The visualized portions of the head and proximal body of the pancreas are within normal limits. The distal body and tail of the pancreas are not well evaluated due to overlying bowel gas. The sple en measures 6.7 x 6.5 x 2.6 cm and has a normal sonographic appearance. The right kidney measures 7.9 cm in length. There is no obvious evidence of calculus, hydronephrosis, or solid mass in the right kidney. Cortical echogenicity and corticomedullary differentiation are suboptimally visualized due to poor acoustic through transmission of the liver. The left kidney measures 8.4 cm in length. There is no evidence of calculus, hydronephrosis, or solid mass in the left kidney. Cortical echogenicity is increased. Cortical thickness is within normal limits. Included portions of the aorta and IVC are within normal limits in size. Please note that these vessels are not visible along their entire course. Portal vein is patent with hepatopedal flow. There is moderate volume ascites identified in all 4 abdominal [facility] NAME: BEVERLY SMITH [address] HP: [phone] AGE: 58 S:F [place] [address] : 1960 LOC: W.7426 1 PHYS: Deb Ghosh PHONE #: [phone] EXAM DATE: 11/12/2018 STATUS: ADM IN FAX #: [phone] A#: [id number] U#: [id number] PAGE 1 Signed Report (CONTINUED) PATIENT NAME: BEVERLY SMITH UNIT NO: [id number] EXAMS: CPT CODE: [id number] US ABDOMEN 70735 <Continued> quadrants. There are moderate-sized pleural effusions incompletely visualized bilaterally. IMPRESSION: 1. Sonographic appearance of the liver consistent with hepatic steatosis and cirrhosis. Small volume perihepatic ascites. 2. Nonspecific gallbladder wall thickening and trace pericholecystic fluid, likely secondary to concomitant hepatic cirrhosis and perihepatic ascites. No cholelithiasis. 3. Moderate volume ascites. 4. Sonographic appearance of the left kidney suggestive of medical renal d isease. Suboptimal visualization of the right kidney. 5. Bilateral pleural effusions. Exam discussed with Deb Hernandez MD by Dr. Skelton on 11/12/2018 6:51 AM. I have personally reviewed these images and corrected the resident physician's interpretation if necessary. at 0717 RESIDENT: TEJINDER SKELTON DO Reported and signed by: CHARU OSORIO MD CC: Jorge Luis Alaniz MD TECHNOLOGIST: MAREK FRAZIER TRANSCRIBED DATE/Time: 11/12/2018 0717 BY: PKHICAMR EXAM COMPLETE DATE/TIME: [id number] 0555 D/TM:11/12/2018 (0722) [facility] NAME: BEVERLY SMITH [address] HP: [phone] AGE: 58 [facility] [address] : 1960 LOC: W.7426 1 PHYS: Deb Ghosh PHONE #: [phone] EXAM DATE: 11/12/2018 STATUS: ADM IN FAX #: [phone] A#: [id number] U#: [id number] PAGE 2 Signed Report *Final Page* Radiology Report from [facility] on 11/15/19 10:29:00 PATIENT NAME: BEVERLY SMITH UNIT NO: [id number] EXAMS: CPT CODE: [id number] XR SWALLOWING FUNCT STUDY 72945 INDICATION: Dysphagia, NPO without Source. Requisition diagnosis of GI bleed, lactic acidosis. TIME: 11/14/2018 9:54 AM COMPARISON: None SPEECH THERAPIST: LUDIN Coppola TECHNIQUE: Real-time fluoroscopy of the pharynx was performed and recorded via BOB unit. PROCEDURE: The patient was given thin barium, barium nectar, barium pudding, and barium- coated crackers. Real-time lateral fluoroscopic views of the cervical esophagus demonstrate intermittent flash penetration with the thin barium preparation, without evidence of aspiration. IMPRESSION: 1./Penetration with thin barium preparation. No aspiration observed. Please see separate speech therapy report for dietary recommendations. Fluoro time: 1.7 minutes Images: 3114 Dose: None provided due to technical insufficiency. I have personally reviewed these images and corrected the resident physician's interpretation if necessary. at 1023 RESIDENT: EMORY ALEXANDRE MD Reported and signed by: SHELLEY LYNN MD CC: Jorge Luis Alaniz MD TECHNOLOGIST: CHEYENNE PÉREZ; STUDENT LAMBERTO JIMENEZ TRANSCRIBED DATE/Time: 11/14/2018 1023 BY: PJOSHAKC EXAM COMPLETE DATE/TIME: 20181114 0954 D/TM:11/14/2018 (1029) [facility] NAME: BEVERLY SMITH [address] HP: [phone] AGE: 58 S:F [place], [place] [address] : 1960 LOC: W.7426 1 PHYS: [facility] HernandezDeb PHONE #: [phone] EXAM DATE: 11/14/2018 STATUS: ADM IN FAX #: [phone] A#: [id number] U#: [id number] PAGE 1 Signed Report *Final Page* Radiology Report from [facility] on 02/10/20 12:17:00 PATIENT NAME: BEVERLY SMITH UNIT NO: [id number] EXAMS: CPT CODE: [id number] CT ABD/PELVIS WITH CONTRAST 10596 REASON FOR EXAM: abdominal pain TIME OF EXAM: 02/09/2019 11:20 AM COMPARISON: CT abdomen and pelvis 10/27/2018, CT chest 07/22/2018 TECHNIQUE: Routine helical contrast-enhanced CT images were obtained through the abdomen and pelvis. Postprocessed coronal and sagittal reformats were reviewed. FINDINGS: Included Lung Bases: There are bilateral pleural effusions. Consolidative opacities are seen in the bilateral posterior lung bases, right greater than left. Additional patchy opacities are seen in the right upper lobe posteriorly. Calcified granulomas present in the right middle lobe. There is a 4 mm subpleural nodule in the right middle lobe laterally 258(image 3 series 2), stable from chest CT performed on 07/19/2018 . The heart size is normal. No pericardial effusion. There is a large hiatal hernia containing majority of the stomach. CT Abdomen: Fatty liver no focal liver lesions are seen. The gallbladder wall demonstrates hyperemia and mild wall thickening measuring 4 mm (image 35 series 4). No calcified gallstone. The adrenal glands, kidneys, spleen, and pancreas are normal appearance. The appendix is not well seen, however, there is no inflammatory change in the region of the appendix to suggest appendicitis. There is concentric wall thickening involving the descending and sigmoid colon. In addition, there is wall thickening and hyperemia involving small bowel loops in the left hemiabdomen. Mildly dilated distal small bowel are seen in the left upper quadrant without meeting size criteria for bowel obstruction. The wall thickening involving the proximal: On the prior is markedly improved. [facility] NAME: BEVERLY SMITH [address] HP: [phone] AGE: 58 S:F [place], [place] [address] : 1960 LOC: W.4804 1 PHYS: Juan Carlos Fofana MD PHONE #: [phone] EXAM DATE: 02/09/2019 STATUS: ADM IN FAX #: [phone] A#: [id number] U#: [id number] PAGE 1 Signed Report (CONTINUED) PATIENT NAME: BEVERLY SMITH UNIT NO: [id number] EXAMS: CPT CODE: [id number] CT ABD/PELVIS WITH CONTRAST 04507 <Continued> There is mesenteric edema and anasarca. There is no mesenteric or retroperitoneal adenopathy. There is no free fluid or free air in the abdomen or pelvis. There is calcific atherosclerosis of the abdominal aorta and iliac arteries without evidence of aneurysm. The left renal vein courses posterior to the aorta at the level of the superior endplate of L3. Punctate focus of subcutaneous air in the anterior left abdomen is likely related to subcutaneous injections. CT Pelvis: Ureters and bladder are within normal limits. The osseous and soft tissue structures are age appropriate. IMPRESSION: 1. Concentric wall thickening of the descending/sigmoid colon and small bowel loops in the left hemiabdomen. Findings can be seen with infectious or inflammatory enterocolitis. Superimposed ischemic colitis can have a similar appearance given segmental distribution. The wall thickening or inflammatory change in the proximal colon on the prior appears to have markedly improved. Findings in the sigmoid: are similar to the prior with with only minimal ascites remaining. 2. Hyperemia with mild wall thickening of the gallbladder. Recommend correlation with clinical symptoms and LFTs. Consider upper quadrant ultrasound if further imaging characterization is desired. 3. Bilateral pleural effusions. 4. Large hiatal hernia. 5. Mesenteric edema with anasarca. 6. Diffuse hepatic steatosis. No focal liver lesion. 7. Abdominal aortic atherosclerosis without aneurysm. [facility] NAME: BEVERLY SMITH [address] HP: [phone] AGE: 58 S:F [place], [place] [address] : 1960 LOC: W.4804 1 PHYS: Juan Carlos Fofana MD PHONE #: [phone] EXAM DATE: 02/09/2019 STATUS: ADM IN FAX #: [phone] A#: [id number] U#: [id number] PAGE 2 Signed Report (CONTINUED) PATIENT NAME: BEVERLY SMITH UNIT NO: [id number] EXAMS: CPT CODE: [id number] CT ABD/PELVIS WITH CONTRAST 03815 <Continued> I have personally reviewed these images and corrected the resident physician's interpretation if necessary. at 1212 RESIDENT: PROSPER OSCAR MD Reported and signed by: LAKSHMI FISCHER MD CC: Jorge Luis Alaniz MD TECHNOLOGIST: MAYUR HESS; SIA FERRO TRANSCRIBED DATE/Time: 02/09/2019 1212 BY: PBRAKDA EXAM COMPLETE DATE/TIME: 20190209 1120 D/TM:02/09/2019 (1217) [facility] NAME: BEVERLY SMITH [address] HP: [phone] AGE: 58 [place] [address] : 1960 LOC: W.4804 1 PHYS: Juan Carlos Fofana MD PHONE #: [phone] EXAM DATE: 02/09/2019 STATUS: ADM IN FAX #: [phone] A#: [id number] U#: [id number] PAGE 3 Signed Report *Final Page* Radiology Report from [facility] on 02/11/20 13:38:00 PATIENT NAME: BEVERLY SMITH UNIT NO: [id number] EXAMS: CPT CODE: [id number] [place] [address] REASON FOR EXAM: elevated bili. History of hepatitis. Suspected colitis on recent CT abdomen. TIME OF EXAM: 02/10/2019 12:15 PM COMPARISON: CT abdomen pelvis 02/09/2019 TECHNIQUE: Liver/gallbladder ultrasound. Findings: The liver is diffusely hypoechoic and enlarged measuring 19 cm in craniocaudad dimension.. No focal liver lesion is seen. The gall bladder is distended. There is impacted sludge within the gallbladder lumen which changes its position and shape. (Image 85 and 87). There is no gallbladder wall thickening, which measures approximately 2 mm in width. No pericholecystic fluid is identified. Sonographic Cardozo's sign is negative. There is no intra or extrahepatic bile duct dilatation. The common bile duct is not dilated, measuring 2.6 mm, in width. The visualized portion of the head and body of pancreas is within normal limits. The rest of the pancreas is obscured by overlying bowel gas. Right kidney is small in size measuring 7.8 cm in length . The renal parenchymal echogenicity is within normal limits. There is no evidence of a renal stone or a mass lesion. Upper abdominal aorta and IVC are unremarkable. IMPRESSION: 1. Diffusely hypoechoic and enlarged liver. This can be seen with acute hepatocellular disease. 2. Impacted sludge in the gallbladder lumen. [facility] NAME: BEVERLY SMITH [address] HP: AGE: 58 S:F [place] [address] : 1960 LOC: W.4804 1 PHYS: Juan Carlos Fofana MD PHONE #: [phone] EXAM DATE: 02/10/2019 STATUS: ADM IN FAX #: [phone] A#: [id number] U#: [id number] PAGE 1 Signed Report (CONTINUED) PATIENT NAME: BEVERLY SMITH UNIT NO: [id number] EXAMS: CPT CODE: [id number] [place] [address] <Continued> 3. Concentric gallbladder wall thickening with striated appearance can be seen secondary to hepatic disease. Acute cholecystitis less likely. 4. No biliary dilatation. 5. Small right kidney with normal echogenicity. No hydronephrosis. at 1333 Reported and signed by: GWEN DUDLEY MD CC: Jorge Luis Alaniz MD TECHNOLOGIST: CHRISTO WEINBERG; STUDENT IVETTE GARDUNO TRANSCRIBED DATE/Time: 02/10/2019 1333 BY: PGUPTART EXAM COMPLETE DATE/TIME: 20190210 1211 D/TM:02/10/2019 (1338) [facility] NAME: BEVERLY SMITH [address] HP: [phone] AGE: 58 S:F [place] [address] : 1960 LOC: W.4804 1 PHYS: Juan Carlos Fofana MD PHONE #: [phone] EXAM DATE: 02/10/2019 STATUS: ADM IN FAX #: [phone] A#: [id number] U#: [id number] PAGE 2 Signed Report *Final Page* Radiology Report from [facility] on 02/16/20 18:29:00 PATIENT NAME: BEVERLY SMITH UNIT NO: [id number] EXAMS: CPT CODE: [id number] XR CHEST AP/PA LATERAL [id number] STUDY: Chest radiograph. INDICATION: Productive cough. COMPARISON: 11/11/2018. TECHNIQUE: Single view FINDINGS: Cardiomediastinal silhouette is normal. Pulmonary vascularity is normal. There is minimal pleural thickening or small effusions left lung base. No pneumothorax, or consolidation. There is atherosclerosis of the aortic arch. IMPRESSION: Minimal pleural thickening or effusion left lung base. at 1824 Reported and signed by: SUE BLUE MD CC: Jorge Luis Alaniz MD TECHNOLOGIST: MANFRED SMITH; AMADOR SHELLEY TRANSCRIBED DATE/Time: 02/15/20191823 BY: PMATCMIW EXAM COMPLETE DATE/TIME: [id number] D/TM:02/15/2019 (1828) [facility] NAME: BEVERLY SMITH [address] HP: [phone] AGE: 58 S:F [place], [place] [address] : [birth year] LOC: [facility] PHYS: GREGORIOMirandaSANDRO Lisa Symone,Isabellalarissa Mohan APRN PHONE #: [phone] EXAM DATE: 02/15/2019 STATUS: REG FAX #: [phone] A#: [id number] U#: [id number] PAGE 1 Signed Report *Final Page* Radiology Report from [id number] on 03/07 04:31:00 Reason For ExamChest painREPORTINDICATIO N: Chest pain and dyspnea.COMPARISON: 05/23/2010.DISCUSSION: Single portable upright view of the chest was obtained.Consolidation within the left lung base is most consistent with pneumonia.Suspect small left pleural effusion. No pneumothorax. Normal heart size. Noosseous abnormality.IMPRESSION:1. Left lower lung pneumonia. Small left effusion.Dictated on workstation:[id number] Line FINAL DICTATED BY: GLADIS GRANDA DT/TM: 03/04/2019 10:17 AMSIGNED BY: LAKSHMI GRANDA MDSIGNED (ELECTRONIC SIGNATURE): 019 3:52 PMTECHNOLOGIST: GARETH COSTA Radiology Report from [id number] on 03/07 04:32:00 Reason For ExamAbdominal pain, generaliz edREPORTPROCEDURE: CT Abdomen Pelvis without contrast.TECHNIQUE: Multiple contiguous axial images were obtained through the abdomenand pelvis without the use of intravenous contrast. Auto Exposure Controls wereutilized during the CT exam to meet ALARA standards for radiation dosereduction.Indication: Abdominal pain with hypotension.Comparison: None.Discussion: Moderate layering bilateral pleural effusions are incompletelyviewed. Additional opacities within the lung bases could be seen withatelectasis or pneumonia. Calcified granuloma within the right middle lobe isbenign. Large hiatal hernia containing over half the stomach. Fatty infiltrationof the liver is noted. The liver is markedly enlarged. Perihepatic ascites issuspected on this noncontrast exam. The gallbladder, pancreas, spleen, andadrenal glands are unremarkable. No renal stone or hydronephrosis. The aorta isnormal in caliber and contain scattered atherosclerotic plaque. Urinary bladderis unremarkable, as is the uterus. Mild wall thickening of the sigmoid coloncould be seen with colitis, nonspecific. No obstruction, pneumatosis,pneumoperitoneum. No acute osseous abnormality identified. Anasarca is noteddiffusely.Impression:1. Fatty hepatomegaly.2. Mild ascites.3. Bilateral pleural effusions with associated opacities.4. Large hiatal hernia.5. Distal colon wall thickening, possible nonspecific colitis.6. Anasarca.Dictated on workstation:[id number] Line FINAL DICTATED BY: GLADIS GRANDA DT/TM: 03/04/2019 12:05 PMSIGNED BY: LAKSHMI GRANDAIGNED (ELECTRONIC SIGNATURE): 03/04/2019 3:52 PMTECHNOLOGIST: MALATHI EATON RT(R) Radiology Report from [id number] on 03/07 04:31:00 Reason For ExamPneumoniaREPORTPATIENT HI STORY: Pneumonia.TECHNIQUE: 2 views of the chestCOMPARISON: 03/04/2019FINDINGS:There is a small left pleural effusion with associated airspace opacities. Thereis a trace right pleural effusion. The cardiac silhouette is normal in size.There is aortic atherosclerosis. No pneumothorax is seen. There is diffuseosteopenia. Aeration appears minimally improved compared to the prior exam.IMPRESSION:1. Small left pleural effusion and trace right pleural effusion with persistentleft basilar airspace opacities. Overall aeration appears minimally improvedcompared to the prior exam.Dictated on workstation:[id number] Line FINAL DICTATED BY: TICO LERMAICTATED DT/TM: 03/06/2019 7:35 AMSIGNED BY: TICO LERMA MDSIGNED (ELECTRONIC SIGNATURE): 03/06/2019 8:51 AMTECHNOLOGIST: EMORY ALICEA RT (R) Radiology Report from [id number] on 04/2019 04:30:00 Reason For Examprescan for thoraREPORTPR OCEDURE:US Chest.TECHNIQUE:Multiple Real-time grayscale images were obtained over the left chest in variousprojections.INDICATION:Pleural effusion.COMPARISON:None.FINDINGS:The focused ultrasound examination of the chest demonstrates mild bilateralpleural effusions.IMPRESSION:Bilateral pleural effusions.Dictated on workstation:[id number] Line FINAL DICTATED BY: ELENA COSTA DT/TM: 03/06/2019 3:48 PMSIGNED BY: ELENA COSTA MDSIGNED (ELECTRONIC SIGNATURE): 03/06/2019 4:21 PMTECHNOLOGIST: FATIMAH SAHNI [facility] Radiology Report from [id number] on 03/07 07:23:00 Reason For ExamAbdominal pain, unspecifi edREPORTINDICATION: Generalized abdominal pain.TECHNIQUE: Single portable supine view of the abdomen 1:49 AMCORRELATION STUDY: NoneFINDINGS:Scattered gas-filled loops of bowel are present. This includes somewhatprominent gas within the colon, nonspecific. Definitive bowel obstruction orfree air does not appear to be suggested.IMPRESSION:1. Somewhat prominent loops of colon which are nonspecific. Definitive bowelobstruction is not demonstrated.A preliminary report was provided by [facility].Dictated on workstation:[id number] Line PRELIMINARY DICTATED BY: OMAIRA PRINCEICTATED DT/TM: 03/07/2019 6:41 Radiology Report from [id number] on 04/2019 15:00:00 Reason For ExamPleural effusionREPORTIND ICATION:Shortness of breath, hypoxia, bilateral pleural effusions.PROCEDURE AND TECHNIQUE:The risks and benefits of the procedure were explained to the patient and aninformed consent was obtained. The patient was placed in the right lateraldecubitus position. The right posterior thorax was prepped and draped in theusual sterile fashion. 1% lidocaine was used to anesthetize the overlyingtissues. After maximum sterile barrier was achieved, a 6 Greek catheter wasplaced into the left pleural space and approximately 1000 mL of fluid wasremoved.IMPRESSION:Left-sided thoracentesis.Dictated on workstation:[id number] Line FINAL DICTATED BY: ELENA COSTA MDICTATED DT/TM: 03/07/2019 11:38 AMSIGNED BY: ELENA COSTA MDSIGNED (ELECTRONIC SIGNATURE): 03/07/2019 12:15 PMTECHNOLOGIST: FATIMAH SAHNI Radiology Report from [id number] on 03/07 11:23:00 Reason For ExamPost ProcedureREPORTINDIC ATION:Thoracentesis, pleural effusion, shortness of breath.COMPARISON:03/06/2019.FINDINGS:A single view of the chest demonstrates interval reduction of the left-sidedeffusion without pneumothorax. There is a stable effusion in the right base.IMPRESSION:No post procedure pneumothorax.Dictated on workstation:[id number] Line PRELIMINARY DICTATED BY: ELENA COSTA MDDICTATED DT/TM: 03/07/2019 11:16 Radiology Report from [id number] on 04/2019 16:11:00 Reason For Examplease obtain upright KUB to assess for free airREPORTINDICATION:Abdominal pain.COMPARISON:Chest x-ray from this same day.FINDINGS:Upright views of the abdomen demonstrate a nondistended bowel gas pattern. Thereis no pneumoperitoneum. The visualized portions of the chest demonstrate nopneumothorax. There is a stable effusion in the right base.IMPRESSION:Nondistended bowel gas pattern. No pneumoperitoneum or pneumothorax isidentified.Dictated on workstation:[id number] Line PRELIMINARY DICTATED BY: ELENA COSTA MDDICTATED DT/TM: 03/07/2019 3:59 Radiology Report from [id number] on 03/07 16:56:00 Reason For ExamAbdominal pain, generaliz edREPORTPROCEDURE: CT abdomen and pelvis with contrast.TECHNIQUE: Multiple contiguous axial images were obtained through the abdomenand pelvis after administration of intravenous contrast. Auto Exposure Controlswere utilized during the CT exam to meet ALARA standards for radiation dosereduction.INDICATION: Abdominal pain.FINDINGS: Comparison is 03/04/2019.Limited views of the lower thorax reveal consolidation in the left lower lobeconsistent with pneumonia. There is bibasilar atelectasis and moderate right andsmall left pleural effusions. There is a large hiatal hernia.Liver is markedly steatotic. No focal liver lesions are seen. Gallbladder isnormal. No biliary ductal dilation. Portal vein is patent but diminutive.Pancreas, spleen, and adrenal glands are normal.Kidneys enhance symmetrically with no focal lesion. No hydronephrosis. Urinarybladder is normal. Uterus and adnexa are normal.There is marked thickening of the rectum and sigmoid colon, increased f rom priorexam. There is extensive submucosal edema. There is large-volume ascites. Mildlythick-walled loops of small bowel are seen, possibly reactive.No free air is seen. Abdominal aorta is normal in caliber without sclerosis.No suspicious osseous lesions. There is severe body wall edema.IMPRESSION:1. Progressive severe colonic wall thickening with submucosal edema. This isconcerning for an infectious colitis such as Clostridium difficile colitis.2. Large-volume ascites and severe body wall edema.3. Left lower lobe pneumonia.4. Severe hepatic steatosis.Tech Comments: IV Contrast Name: omni 300Contrast amount in ml's: 80.000Dictated on workstation:[id number] Line PRELIMINARY DICTATED BY: TEJINDER MAZARIEGOS MDDICTATED DT/TM: 03/07/2019 4:37 Radiology Report from [id number] on 03/07 19:23:00 Reason For Examtube placementREPORTINDIC ATION: NG tube placement.TIME OF EXAM: 06:57 p.m.FINDINGS: NG tube passes below the diaphragm. The tip is directed towards theright near the pyloroduodenal junction.IMPRESSION: NG tube placement, as described.Dictated on workstation:[id number] Line PRELIMINARY DICTATED BY: VENITA JHA MDDICTATED DT/TM: 03/07/2019 7:19 Radiology Report from [id number] on 03/07 19:26:00 Reason For ExamRespiratory failure, acut eREPORTINDICATION: Intubation.TIME OF EXAM: 06:55 p.m.COMPARISON: Comparison is made with prior chest earlier the same day.FINDINGS: Patient has been intubated. ET tube has tip in good position above thecarina. The NG tube passes below the diaphragm. There is some parenchymalconsolidation in the left lower lobe. Small right effusion is seen. There is nopneumothorax. There appears to be some infiltrate or atelectasis in rightperihilar region.IMPRESSION:1. Satisfactory endotracheal tube and NG tube placement.2. Bilateral infiltrates, most consolidated in the left base. There is also asmall right pleural effusion.Dictated on workstation:[id number] Line PRELIMINARY DICTATED BY: VENITA JHA MDDICTATED DT/TM: 03/07/2019 7:19 Radiology Report from [id number] on 03/07 19:36:00 Reason For ExamarfREPORTPROCEDURE: US Re troperitoneal Complete.TECHNIQUE: Multiple real-time grayscale images were obtained over the kidneys invarious projections bilaterally.INDICATION: Acute renal failure.Both kidneys are small. Right kidney measures 7.9 x 4.0 x 3.4 cm and the leftkidney measures 7.8 x 3.7 x 3.3 cm. Overall cortical thickness and echogenicityappears normal. No calculi are seen. There is no hydronephrosis. Bladder is notwell visualized. There does appear to be free fluid in the right upper quadrantas well as the right and left lower quadrants.IMPRESSION:1. Small kidneys bilaterally. No calculi or hydronephrosis is seen. 2. Ascites.Dictated on workstation:[id number] Line PRELIMINARY DICTATED BY: VENITA JHA MDDICTATED DT/TM: 03/07/2019 7:31 Radiology Report from [id number] on 03/08 11:21:00 Reason For ExamRespiratory failure, acut eREPORTIndication: Respiratory failure.Portable chest shows normal heart size and vascularity. There are bilateralinfiltrates and effusions with increased opacification of the lower hemithoraxcompared to 03/07/2019 study. The ET tube is in good position. OG tube ispresent. Left arm PICC line has been placed with the tip in the SVC near theright atrium.Impression: Interval placement of PICC line. There are increasing infiltratesand effusions.Dictated on workstation:[id number] Line FINAL DICTATED BY: KAMALA MENDEZ MDDICTATED DT/TM: 03/08/2019 6:46 AMSIGNED BY: KAMALA MENDEZ MDSIGNED (ELECTRONIC SIGNATURE): 03/08/2019 7:12 AMTECHNOLOGIST: GINGER BALDERAS Radiology Report from [id number] on 03/09 09:32:00 Reason For ExamPost thoracentesisREPORTI NDICATION: Post thoracentesis. Short of air.Upright chest shows normal heart size and vascularity. There is left basilaratelectasis with small effusion. There is no pneumothorax. There is no effusionon the right. PICC line tip is in the SVC.IMPRESSION: There is left basilar atelectasis and effusion with no pneumothorax.The ET tube and OG tube have been removed since 03/08/2019.Dictated on workstation:[id number] Line PRELIMINARY DICTATED BY: KAMALA MENDEZ MDDICTATED DT/TM: 03/09/2019 9:27 Radiology Report from [id number] on 03/14 23:59:00 Reason For ExamCongestionREPORTINDICATIO N: Respiratory distressEXAM: Portable chest at 6:06 AMCOMPARISON study from 2 days earlier.FINDINGS:There has been interval development of bilateral perihilar infiltrates. Thepreviously seen consolidation in the left lung base is unchanged. There is leftupper extremity PICC line with tip projecting over the SVC.IMPRESSION:Interval development of bilateral perihilar infiltrates, worse on the right thanon the left. This is most likely inflammatory in nature.Dictated on workstation:[id number] Line FINAL DICTATED BY: HARVEY GILMORE MDDICTATED DT/TM: 03/11/2019 8:58 AMSIGNED BY: HARVEY GILMORE MDSIGNED (ELECTRONIC SIGNATURE): 03/11/2019 11:31 AMTECHNOLOGIST: MARTIN GANDHI RT(R)(M)ELENI THER Radiology Report from [id number] on 03/15 00:03:00 Reason For ExamPneumoniaREPORTINDICATION : PneumoniaPortable chest shows normal heart size and vascularity. There are persistentbilateral infiltrates similar to the 03/11/19 study. There are small effusions.There is no pneumothorax. PICC line tip is in the right atrium.IMPRESSION: There are persistent bilateral infiltrates.Dictated on workstation:[id number] Line FINAL DICTATED BY: KAMALA MENDEZ MDDICTATED DT/TM: 03/12/2019 7:33 AMSIGNED BY: KAMALA MENDEZ MDSIGNED (ELECTRONIC SIGNATURE): 03/12/2019 10:18 AMTECHNOLOGIST: MARTIN GANDHI RT(R)(M) Radiology Report from [id number] on 00:04:00 Reason For Examdobhoff under fluoro. eso phageal tear.REPORTREASON FOR EXAM: Dobbhoff under fluoro. Mallor-Ej tear, large hiatal hernia.TIME OF EXAM: 03/12/2019 10:15 AMCOMPARISON: CT from 03/07/2019PROCEDURE: Under fluoroscopic guidance, the Dobbhoff tube was placed in theright naris and advanced into the esophagus. Contrast was given to evaluate thepath to the GE junction, which was to the right of typical. The tube wasadvanced with the tip at the third portion of the duodenum, and verified withcontrast. The patient tolerated the procedure well, with no complications. Thetube was flushed and then secured into place.Fluoroscopy Time: 1.4 minutesIMPRESSION:Successful placement of Dobbhoff tube in the third portion of the duodenum.Tech Comments: Fluoroscopy time (in minutes): 1.4# of Fluoro Images Acquired 3Dictated on workstation:[id number] Line FINAL DICTATED BY: TICO LERMA MDDICTATED DT/TM: 03/12/2019 10:53 AMSIGNED BY: TICO LERMA MDSIGNED (ELECTRONIC SIGNATURE): 03/12/2019 2:03 PMTECHNOLOGIST: SHANELLE PETERSON RT(R) Radiology Report from [id number] on 03/15 00:04:00 Reason For ExamPleural effusionREPORTIND ICATION: Shortness of breath.Comparison with 03/12/2019.FINDINGS: Dobbhoff tube now present, tip is below the diaphragm and not visible.Left PICC line remains in good position. The lungs continue to show bilateralinfiltrates, most severe in the lung bases. Moderate infiltrate in the rightupper lung has improved slightly. Heart is not enlarged. Bilateral pleuraleffusions remain present.IMPRESSION: Little overall change since previous exam with bilateralinfiltrates. There has been slight improvement in aeration of the right upperlung since previous exam.Dictated on workstation:[id number] Line FINAL DICTATED BY: ESTELLA HAMMONDS MDDICTATED DT/TM: 03/13/2019 8:27 AMSIGNED BY: ESTELLA HAMMONDS MDSIGNED (ELECTRONIC SIGNATURE): 03/13/2019 4:48 PMTECHNOLOGIST: GINGER BALDERAS Radiology Report from [id number] on 23:46:00 Reason For ExamShortness of breath (SOB )REPORTPatient History: Shortness of breath (SOB).Technique: Single frontal view of the chestComparison: Chest radiograph on 03/13/2019FINDINGS:Stable configuration of the left PICC and Dobbhoff tube with the tip extendingbelow the diaphragm not included on this exam.Bibasilar opacities are unchanged with small bilateral pleural effusions. Nopneumothorax. Stable cardiomediastinal silhouette. There is calcified aorticatherosclerotic plaque.No acute osseous abnormality is seen.IMPRESSION:Stable appearance of the chest with bibasilar opacities and small bilateralpleural effusions. Stable support devices as seen on this exam.Dictated on workstation:[id number] Line FINAL DICTATED BY: SREE MILLER DODICTATED DT/TM: 03/14/2019 10:41 AMSIGNED BY: SREE MILLER DOSIGNED (ELECTRONIC SIGNATURE): 03/14/2019 10:43 AMTECHNOLOGIST: EDMOND ZEE RT(R) Radiology Report from [id number] on 00:59:00 Reason For ExamUpper GI BleedREPORTINDIC ATION: Hematemesis, upper GI bleed suspected.EXAMINATION: Nuclear medicine GI bleed scan, 03/15/2019.FINDINGS: After uneventful administration of 27.29 mCi of technetium 99mpertechnetate, imaging was performed. Immediately after administration, uptakeis seen in the stomach and along the midline of the upper abdomen. The uptake inthe upper abdomen extends back and forth across midline and appears to refluxinto the stomach. This remains fairly stable in location throughout 90 minutesof imaging.IMPRESSION: Appearance of the upper abdomen would suggest either a very proximalsmall bowel bleed, perhaps in the duodenum refluxing into the stomach or even ableed in the stomach, itself, perhaps direct visualization may be of use.Report was called to patient's nurse, Beth Reynolds, on [facility] at 6:48 p.m., [facility]Tech Comments: Isotope Name: 20osr05-Jvzcjfme (mCi) 27.29Dictated on workstation:[id number] Line FINAL DICTATED BY: BETH COLLAZO MDDICTATED DT/TM: 03/15/2019 6:12 PMSIGNED BY: BETH COLLAZO MDSIGNED (ELECTRONIC SIGNATURE): 03/15/2019 7:06 PMTECHNOLOGIST: HALLEY BAUM RT (N), [employer]TIC[employer]ING [employer] WORKER, [facility] Radiology Report from [id number] on 03/20 08:59:00 Reason For ExamPleural effusionREPORTInd ication: Difficulty breathing, shortness of air.Examination: Chest 03/20/2019Comparison: 03/14/2019Findings:Infiltrates seen at the bases, left worse than right with bilateral effusionsnoted. Heart is stable. Pulmonary vasculature is unremarkable. Upper lungsdemonstrate chronic emphysematous changes similar to previous examination.There is a left-sided central line stable from previous imaging. A feeding tubehas been removed.Impression:1. Interval removal of the feeding tube. The remaining chest is fairly similarto previous.Dictated on workstation:[id number] Line FINAL DICTATED BY: BETH COLLAZO MDDICTATED DT/TM: 03/20/2019 7:37 AMSIGNED BY: BETH COLLAZO MDSIGNED (ELECTRONIC SIGNATURE): 03/20/2019 8:34 AMTECHNOLOGIST: GINGER BALDERAS Radiology Report from [id number] on 11/15 13:12:00 Reason For ExamPain in joint, hip, pelvi s or thighREPORTEXAM: XR Hip w Pelvis when perform 2-3 vws RTINDICATION: Right hip pain.COMPARISON: None.FINDINGS: Mild degenerative changes in the right hip. No fracture ormalalignment. Soft tissue shadows are unremarkable.IMPRESSION: No acute radiographic findings in the right hip. Soft tissue shadowsare unremarkable.Dictated on workstation:[id number] Line PRELIMINARY DICTATED BY: JENIFER CARVER MDDICTATED DT/TM: 11/16/2019 12:58 Radiology Report from [id number] on 12/24 18:49:00 Reason For ExamCoughREPORTINDICATION: Co ughCOMPARISON: 03/20/2019FINDINGS: Single frontal view of the chest demonstrates normal heart size andpulmonary vascularity. The lungs are well aerated and clear. No large pleuraleffusion or pneumothorax is seen. The visualized osseous structures show noacute abnormalities. Calcified aortic atherosclerosis is noted.IMPRESSION:1. No acute cardiopulmonary process.Dictated on workstation:[id number] Line PRELIMINARY DICTATED BY: HERMANN WATSON MDDICTATED DT/TM: 12/25/2019 6:46 Radiology Report from [id number] on 12/24 19:49:00 Reason For ExamAbdominal pain, generaliz edREPORTPROCEDURE: CT abdomen and pelvis with contrast.TECHNIQUE: Multiple contiguous axial images were obtained through the abdomenand pelvis after administration of intravenous contrast. All CT scans use one ormore of the following dose optimizing techniques: automated exposure control, MAand/or KvP adjustment based on a patient size and exam type, or iterativereconstruction.INDICATION: Generalized abdominal pain.COMPARISON: 03/07/2019FINDINGS: Included portions of the lung bases are clear. Large hiatal hernia isnoted.CT ABDOMEN: Small bowel loops are nondistended. Normal appendix is identified.Kidneys have a lobulated appearance to the external margins. This is stablecompared to prior exam and may be on the basis of persistent lobulation.Otherwise, the kidneys, adrenal glands, spleen, pancreas, and liver have anormal CT appearance. There is no loculated fluid collection, free fluid, norfree air within the abdomen. No abnormal mesenteric or retrope ritonealadenopathy is seen. Advanced diffuse calcified aortic and arterialatherosclerosis is noted. This is greater than expected given patient's age.Osseous structures show no acute abnormalities.CT pelvis: Urinary bladder is unopacified. No calculi are seen within theurinary bladder. There is no loculated fluid collection, free fluid, nor freeair within the pelvis. No abnormal lymph nodes are seen. Osseous structures showno acute abnormalities.IMPRESSION:1. No acute abnormality within the abdomen or pelvis.2. Additional nonacute findings as detailed above.Tech Comments: IV Contrast Name: omni 300Contrast amount in ml's: 80.000Dictated on workstation:[id number] Line PRELIMINARY DICTATED BY: HERMANN WATSON MDDICTATED DT/TM: 12/25/2019 7:39 Radiology Report from [id number] on 02/19 22:08:00 Reason For ExamChest painREPORTINDICATIO N: Chest painPortable chest 7:44 PMHeart size and pulmonary vascularity are normal. Lungs are clear. There are noeffusions or pneumothoraces.IMPRESSION: No acute abnormalities in the chest. There appears to be some airtrapping.Dictated on workstation:[id number] Line FINAL DICTATED BY: HARVEY GILMORE MDDICTATED DT/TM: 01/30/2020 7:59 PMSIGNED BY: HARVEY GILMORE MDSIGNED (ELECTRONIC SIGNATURE): 01/30/2020 8:37 PMTECHNOLOGIST: DERIC MARQUEZ Radiology Report from [id number] on 02/19 22:08:00 Reason For ExamPain/TraumaREPORTINDICATI ON: Right ankle injury.FINDINGS: Three views of the right ankle show no fracture, dislocation or otheracute abnormalities.IMPRESSION: Negative right ankle.Dictated on workstation:[id number] Line FINAL DICTATED BY: HARVEY GILMORE MDDICTATED DT/TM: 01/30/2020 8:01 PMSIGNED BY: HARVEY GILMORE MDSIGNED (ELECTRONIC SIGNATURE): 01/30/2020 8:37 PMTECHNOLOGIST: DERIC MARQUEZ Radiology Report from [id number] on 02/19 22:08:00 Reason For ExamAbdominal pain, generaliz edREPORTPROCEDURE: CT abdomen and pelvis with contrast.TECHNIQUE: Multiple contiguous axial images were obtained through the abdomenand pelvis after administration of intravenous contrast. All CT scans use one ormore of the following dose optimizing techniques: automated exposure control, MAand/or KvP adjustment based on a patient size and exam type, or iterativereconstruction.INDICATION: Abdominal pain. History of COPD, cirrhosis of the liver. Ethanolabuse.Comparison with 12/25/2019CT ABDOMEN.FINDINGS: There is a calcified nodule right upper lobe measuring 5 mm. There issome focal patchy infiltrate posteriorly in the lung bases bilaterally likelyrepresenting atelectasis. There is hepatomegaly with hepatic steatosis.Gallbladder is not distended. No gallstones or wall thickening. Bile ducts arenot dilated. Pancreas and spleen are normal. The adrenal glands are normal.Kidneys appear normal. There is normal enhancement of the abdominal organs andvessels following IV contrast. Aorta is densely atherosclerotic withoutaneurysm. There is very little stool within the colon. There is thickening ofthe colonic bowel wall throughout. The small bowel is mildly distended withair-fluid levels. No intra-abdominal adenopathy of pathologic size. No free airor free fluid. The bladder is not distended. No blastic or lytic bony lesion.IMPRESSION:1. There is rather diffuse thickening of the colon bowel wall with very littlestool present raising suspicion of colitis. There is no free air or free fluid.No intra-abdominal adenopathy of pathologic size.2. Hepatomegaly with hepatic steatosis. Calcified nodule right upper lobe whichis stable.These findings are concordant with the preliminary report.IV Contrast Name: OMNIPAQUE 300Contrast amount in ml's: 80.000Dictated on workstation:[id number] Line FINAL DICTATED BY: ESTELLA HAMMONDS MDDICTATED DT/TM: 01/31/2020 7:23 AMSIGNED BY: ESTELLA HAMMONDS MDSIGNED (ELECTRONIC SIGNATURE): 01/31/2020 11:30 AMTECHNOLOGIST: NAWAF HUDDLESTON LRT Radiology Report from [id number] on 02/21 18:07:00 Reason For ExamCoughREPORTINDICATION: Co ugh.COMPARISON: 01/30/2020.EXAMINATION: Single frontal view of the chest.FINDINGS: Normal heart size and pulmonary vascularity. The lungs are wellaerated and clear. No large pleural effusion or pneumothorax is seen. Thevisualized osseous structures show no acute abnormality. Hiatal hernia is noted.IMPRESSION: No acute cardiopulmonary process.Dictated on workstation:[id number] Line FINAL DICTATED BY: HERMANN WATSON MDDICTATED DT/TM: 02/10/2020 8:38 PMSIGNED BY: HERMANN WATSON MDSIGNED (ELECTRONIC SIGNATURE): 02/11/2020 4:51 PMTECHN OLOGIST: MAX WOLFF DOUGLASS, MARIAH J ARRT Radiology Report from [id number] on 02/21 18:07:00 Reason For ExamAbdominal pain, generaliz edREPORTPROCEDURE: CT abdomen and pelvis with contrast.TECHNIQUE: Multiple contiguous axial images were obtained through the abdomenand pelvis after administration of intravenous contrast. All CT scans use one ormore of the following dose optimizing techniques: automated exposure control, MAand/or KvP adjustment based on a patient size and exam type, or iterativereconstruction.INDICATION: Generalized abdominal pain for 4 to 5 days as well as nausea andvomiting.Comparison is made with prior CT from 01/30/2020.The lung bases are free of acute infiltrates. There is a large hiatal hernia.Calcified nodule right middle lobe is noted consistent with granuloma. There isdiffuse low-density throughout the liver consistent with hepatic steatosis. Nodiscrete liver mass is detected. Gallbladder is unremarkable. There is nobiliary duct dilatation. Pancreas and spleen are unremarkable. No adrenal massis detected. No hydronephrosis is seen. Aorta is calcified and somewhat ectaticbut no aneurysm is detected. There is significant mural thickening involving therectum and sigmoid colon. No bowel obstruction or abscess formation is seen.There is no free fluid or free air. Bladder is unremarkable.IMPRESSION:1. Hepatic steatosis.2. Significant mural thickening involving the rectum and sigmoid colonconsistent with nonspecific infectious or inflammatory colitis. No othersignificant abnormality is detected.Tech Comments: IV Contrast Name: OMNIPAQUE 300Contrast amount in ml's: 80.000Dictated on workstation:[id number] Line FINAL DICTATED BY: Vishnu JHA MDDICTATED DT/TM: 02/11/2020 6:20 AMSIGNED BY: VENITA JHA MDSIGNED (ELECTRONIC SIGNATURE): 02/11/2020 1:41 PMTECHNOLOGIST: GAMAL ARBOLEDA LRT Radiology Report from [id number] on 18:07:00 Reason For ExamChest painREPORTREASON FO R EXAMINATION: Chest pain.Frontal view of the chest was obtained and compared to 02/10/2020.Heart size is within normal limits. No mediastinal widening. Right PICC lineprojects to the upper SVC. Right lower lobe infiltrate with a small rightpleural effusion. No pneumothorax. No heart failure.IMPRESSION:1. Patchy right lower lobe infiltrate with a small right pleural effusion. RightPICC line in the upper SVC.Dictated on workstation:[id number] Line FINAL DICTATED BY: TEJINDER GILLETTE MDDICTATED DT/TM: 02/19/2020 11:52 AMSIGNED BY: TEJINDER GILLETTE MDSIGNED (ELECTRONIC SIGNATURE): 02/19/2020 12:15 PMTECHNOLOGIST: TAYLOR MILLER Radiology Report from [id number] on 12:31:00 Reason For ExamPneumoniaREPORTIndication : Shortness of breath, pneumonia.Comparison: 02/19/2020Findings: Single view of the chest demonstrates interval clearing of both lungbases. Heart is normal. There is no pneumothorax. Stable nodule seen in theright base. Osseous structures are age- appropriate.Impression: Interval clearing of both lung bases. No new infiltrate.Dictated on workstation:[id number] Line FINAL DICTATED BY: ELENA COSTA MDICTATED DT/TM: 02/24/2020 7:26 AMSIGNED BY: ELENA COSTA MDSIGNED (ELECTRONIC SIGNATURE): 02/24/2020 7:55 AMTECHNOLOGIST: CLINT KNOWLES(R)(M),SHANELLE PETERSON Radiology Report from [id number] on 10:29:00 Reason For ExamShortness of breath (SOB )REPORTXR Chest 2 ViewsIndication: Shortness of breathComparison: 02/24/2020Findings:Stable calcified right middle lobe granuloma. New ill-defined opacities in leftlung base. No pleural effusion or pneumothorax. Normal heart size andmediastinal contours.Impression:New ill- defined opacities in the left lung base may represent developinginfection or atelectasis.Dictated on workstation:[id number] Line PRELIMINARY DICTATED BY: ROBBIE HAMMONDS MDDICTATED DT/TM: 02/25/2020 10:24 Radiology Report from [facility] on 2019 22:34:00 PATIENT NAME: BEVERLY SMITH UNIT NO: [id number] EXAMS: CPT CODE: [id number] XR CHEST AP/PA ONLY 92904 PROCEDURE: - XR CHEST AP/PA ONLY TIME OF EXAM: 03/03/2020 9:55 PM REASON FOR EXAM: cough, soa COMPARISON: February 15, 2019 FINDINGS: Frontal portable view of the chest is obtained. The cardiac silhouette is normal in size and shape. The pulmonary vascularity is within normal limits. A calcified granuloma is seen of the right lung base. A trace left pleural effusion is seen with minimal left base airspace opacity. No pneumothorax is seen. Bony and soft tissue structures are within normal limits. IMPRESSION: Trace left pleural effusion with minimal left base airspace opacity, likely atelectasis. at 2228 Reported and signed by: LINDA REESE MD CC: TECHNOLOGIST: SRINI CATALAN; SANDRA BERRY TRANSCRIBED DATE/Time: 03/03/20202227 BY: Leng[employer]YLT[employer]er[employer] Interactive EXAM COMPLETE DATE/TIME: 20200303 D/TM:03/03/2020 (2233) [facility] ER NAME: BEVERLY SMITH [address] HP: [phone] AGE: 59 S:F [place], [place] [address] : 1960 [facility] PHONE #: [phone] EXAM DATE: 03/03/2020 STATUS: REG ER FAX #: [phone] A#: [id number] U#: [id number] PAGE 1 Signed Report *Final Page* Radiology Report from [facility] on 2019 22:35:00 PATIENT NAME: BEVERLY SMITH UNIT NO: [id number] EXAMS: CPT CODE: [id number] XR FOREARM LEFT 25251 PROCEDURE: - XR FOREARM LEFT TIME OF EXAM: 03/03/2020 9:55 PM REASON FOR EXAM: fall, arm injury,skin tear COMPARISON: None. FINDINGS: 2 views of the left forearm show no fractures, dislocations, or other acute bony abnormalities identified. The joint spaces are well maintained throughout. The soft tissues appear edematous medially. No radiopaque foreign bodies are identified. IMPRESSION: No acute fractures or dislocations of the left forearm. at 2229 Reported and signed by: LINDA REESE MD CC: TECHNOLOGIST: SRINI CATALAN; SANDRA BERRY TRANSCRIBED DATE/Time: 03/03/20202228 BY: DAYAMI EXAM COMPLETE DATE/TIME: 20200303 D/TM:03/03/2020 (2234) [facility] NAME: BEVERLY SMITH [address] HP: [phone] AGE: 59 S:F [place] [address] : 1960 LOC: WKartikMILO PHYS: Lisandra Dominguez PHONE #: [phone] EXAM DATE: 03/03/2020 STATUS: REG ER FAX #: [phone] A#: [id number] U#: [id number] PAGE 1 Signed Report *Final Page* Radiology Report from [facility] on 2019 17:08:00 PATIENT NAME: BEVERLY SMITH UNIT NO: [id number] EXAMS: CPT CODE: [id number] [place] [address] REASON FOR EXAM: Evaluate for cirrhosis. 03/05/2020 5:00 PM COMPARISON: 02/10/2019 TECHNIQUE: Right upper quadrant ultrasound was performed. FINDINGS: The liver is increased in size and diffusely hypoechoic similar to the prior exam. No focal hepatic lesion is present. Gallbladder remains distended with impacted sludge in the gallbladder lumen. There is no gallbladder wall thickening. There is no biliary dilatation with the common bile duct measuring 5 mm. There is a small amount of free fluid in the right upper quadrant. The visualized portions head and proximal body of the pancreas are within normal limits. The distal body and tail of the pancreas are not visualized due to overlying bowel gas. Right kidney measures 8.0 x 3.4 x 4.0 cm (56.6 ml). There is no hydronephrosis or contour deforming renal mass. IMPRESSION: 1. Diffusely hypoechoic enlarged liver similar to the prior exam. 2. Stable gallbladder distention and impacted sludge within the lumen. 3. No biliary dilatation. 4. Small amount of ascites in the right upper quadrant. at 1702 Reported and signed by: CHARU OSORIO MD CC: Tennille Garcia DO TECHNOLOGIST: HERBERTH GARDUNO TRANSCRIBED DATE/Time: 03/05/2020 1702 BY: PKHICAMR EXAM COMPLETE DATE/TIME: 20200305 D/TM:03/05/2020 (1708) [facility] NAME: BEVERLY SMITH [address] HP: [phone] AGE: 59 [place] [address] : 1960 LOC: W.7412 1 PHYS: Jenn Kothari MD PHONE #: [phone] EXAM DATE: 03/05/2020 STATUS: ADM IN FAX #: [phone] A#: [id number] U#: [id number] PAGE 1 Signed Report *Final Page* Radiology Report from [facility] on 03/09/20 12:17:00 PATIENT NAME: BEVERLY SMITH UNIT NO: [id number] EXAMS: CPT CODE: [id number] US ABDOMEN LIMITED 49330 REASON FOR EXAM: Evaluate for ascites TIME OF EXAM: 03/09/2020 11:50 AM COMPARISON: Liver gallbladder ultrasound 03/05/2020, CXR 03/03/2020 TECHNIQUE: Limited high resolution grayscale ultrasound of the abdomen was performed to assess for ascites. FINDINGS: Small volume ascites is identified in the right upper quadrant. No significant ascites is visualized in the right lower, left upper, and left lower quadrants. A left pleural effusion is partially visualized. IMPRESSION: 1. Small volume right upper quadrant ascites, not amenable to paracentesis. 2. Left pleural effusion. I have personally reviewed these images and corrected the resident physician's interpretation if necessary. at 1212 RESIDENT: TEJINDER SKELTON DO Reported and signed by: SUZI MULLINS MD CC: Tennille Garcia DO TECHNOLOGIST: CHRISTO GARDUNO TRANSCRIBED DATE/Time: 03/09/2020 1212 BY: STACY EXAM COMPLETE DATE/TIME: 20200309 D/TM:03/09/2020 (1217) [facility] NAME: BEVERLY SMITH [address] HP: [phone] AGE: 59 S:F [place] [address] : 1960 LOC: W.76732 1 PHYS: Hermann Hooker MD PHONE #: [phone] EXAM DATE: 03/09/2020 STATUS: ADM IN FAX #: [phone] A#: [id number] U#: [id number] PAGE 1 Signed Report *Final Page* Encounters ACCT No. Visit Date/Time Discharge Status Pt. Type Provider Facility Loc./Unit Complaint [id number] 03/04/2019 09:44:00 Document Registration [id number] 02/23/2020 19:44:00 18:23:00 DIS Inpatient Ponce Scott [facility] on [facility] J5E ETOH intoxication, Chronic alcohol abuse, Malnourished, Hypo [id number] 02/10/2020 19:33:00 14:37:00 DIS Inpatient Kennedy [facility] F5SE Vomiting, lactic Aci dosis, Alcohol intoxication, Hypokalemia [id number] 01/30/2020 18:48:00 16:48:00 DIS Inpatient Acosta Lisa [facility] F5SE NONSPECIFIC CHEST PA IN, UPPER ABD. PAIN, ANKLE WOUND, CHRONI [id number] 01/09/2020 07:42:00 14:33:00 DIS Outpatient Sanders Jennifer [facility] on [facility] J5E Hypokalemia, vomiting [id number] 12/25/2019 18:01:00 20:46:00 DIS Emergency Vilchis Jacob [facility] on [facility] ED Abd, Fever, Cough [id number] 11/16/2019 12:00:00 13:22:00 DIS Emergency Ritchie [facility] ED Fall,hip pain [id number] 10/04/2019 13:23:00 020 15:35:00 DIS Emergency Deng,Magdiel [facility] on [facility] ED Dizzy, vomitting blood, MAJOR [id number] 03/04/2019 09:44:00 019 17:38:00 DIS Inpatient Tommy,ArinSia [facility] on [facility] J5E CAP, Hypotension, hypokale lian, anemia [id number] 03/01/2020 05:12:27 Document Registration [id number] 02/29/2020 05:12:46 Document Registration [id number] 02/28/2020 05:12:44 Document Registration [id number] 02/27/2020 05:13:27 Document Registration [id number] 02/26/2020 05:11:27 Document Registration [id number] 02/25/2020 05:11:17 Document Registration [id number] 02/24/2020 05:12:24 Document Registration [id number] 02/20/2020 05:12:57 Document Registration [id number] 02/18/2020 05:11:18 Document Registration [id number] 02/17/2020 05:12:33 Document Registration [id number] 02/16/2020 05:12:17 Document Registration [id number] 02/15/2020 05:12:44 Document Registration [id number] 02/14/2020 05:12:32 Document Registration [id number] 02/13/2020 05:13:26 Document Registration [id number] 02/12/2020 05:11:23 Document Registration [id number] 02/11/2020 05:10:59 Document Registration [id number] 02/03/2020 05:12:37 Document Registration [id number] 02/02/2020 05:12:41 Document Registration [id number] 02/01/2020 05:13:09 Document Registration [id number] 01/31/2020 05:12:52 Document Registration [id number] 01/11/2020 05:12:31 Document Registration [id number] 01/10/2020 05:12:18 Document Registration [id number] 12/26/2019 05:12:50 Document Registration [id number] 11/17/2019 05:12:24 Document Registration [id number] 03/25/2019 05:17:13 Document Registration [id number] 03/24/2019 05:18:54 Document Registration [id number] 03/23/2019 05:17:32 Document Registration [id number] 03/22/2019 05:18:43 Document Registration [id number] 03/21/2019 05:19:27 Document Registration [id number] 03/20/2019 05:16:16 Document Registration [id number] 03/19/2019 05:16:44 Document Registration [id number] 03/17/2019 05:17:36 Document Registration [id number] 03/16/2019 05:17:52 Document Registration [id number] 03/15/2019 05:18:53 Document Registration [id number] 03/14/2019 05:19:09 Document Registration [id number] 03/13/2019 05:16:52 Document Registration [id number] 03/12/2019 05:17:11 Document Registration [id number] 03/11/2019 05:19:07 Document Registration [id number] 03/10/2019 05:17:10 Document Registration [id number] 03/09/2019 05:19:12 Document Registration [id number] 03/08/2019 05:18:54 Document Registration [id number] 03/07/2019 05:20:46 Document Registration [id number] 03/06/2019 05:16:01 Document Registration [id number] 03/05/2019 05:15:52 Document Registration [id number] 03/03/2020 23:11:00 020 10:21:00 DIS Inpatient Angelica OMER, Hermann Dinh [facility] W.10TS [id number] 02/16/2019 21:24:00 019 13:35:00 DIS Inpatient Jenn Andrew [facility] W.7TS [id number] 02/07/2019 23:52:00 13:58:00 DIS Inpatient Juan Carlos Hernandez [facility] W.8TN [id number] 11/11/2018 16:56:00 019 14:54:00 DIS Inpatient SandrosedrickDavid boykin [facility] W.8TN [id number] 11/10/2018 19:58:00 22:25:00 DIS Emergency Bud OMER, Steffanie Frazier [facility] W.MILO [id number] 11/05/2018 08:03:00 019 15:00:00 DIS Inpatient Suzanne Corcoran [facility] W.3CE [id number] 10/27/2018 16:11:00 019 18:56:00 DIS Inpatient Rancho Whalen DO [facility] W.7TN [id number] 08/05/2018 13:12:00 018 16:04:00 DIS Emergency Chad Alvarado DO [facility] W.MILO [id number] 07/22/2018 10:59:00 018 17:54:00 DIS Inpatient Oleksandr OMER, Kerry Anaya [facility] W.10TN [id number] 06/19/2016 12:23:00 13:20:00 DIS Emergency Bita OMER, Darrin Mock [facility] W.EDW [id number] 04/12/2018 12:48:00 Document Registration [id number] 03/30/2019 15:53:06 23:59:59 CLS Outpatient YESSICA DOS SANTOS MD [id number] 03/31/2019 16:10:00 23:59:59 [place] [id number] 08/29/2019 13:00:00 08/29/2019 23:59:5 9 CLS Outpatient Jessica Franz [facility] [id number] 05/08/2013 15:49:00 05/08/20 13 16:54:00 DIS Emergency Jose Rafael OMER, Naseem Cohen [facility] on [facility] [id number] 02/20/2013 14:24:00 02/21/20 13 17:40:00 DIS Emergency Naima OMER, Isra kessler [facility]
== END 2020-04-16 09:29 | disposition home or self-care (01) ==
LOC: ER 08:08
DX: R10.13 Epigastric pain (principal); R11.2 Nausea with vomiting, unspecified; F17.210 Nicotine dependence, cigarettes, uncomplicated
CPT/HCPCS: 36415; 80053; 80320; 83690; 85025; 85610

== ENCOUNTER → 2020-05-07 | Outpatient (CLI) | payer MEDICAID ==
[~2020-05-07] MED LIST: OMEP20CA18 PO; SUCR1TAB36 PO
== END ==
LOC: CARD 13:00
PROVIDERS: ATTEND Nurse Practitioner
DX: I31.3 Pericardial effusion (noninflammatory) (principal)
CPT/HCPCS: 93306

== ENCOUNTER → 2020-06-13 | Outpatient (CLI) | payer MEDICAID ==
--- NOTE | 2020-06-13 13:00 | Diagnostic Imaging Report ---
INDICATION: Routine screening. No prior mammograms are available for comparison. This is a baseline study. 2-D and 3-D bilateral screening mammography was performed with CAD. Both breasts are heterogeneously dense, limiting the sensitivity of mammography. There are vascular calcifications bilaterally. No mass or malignant appearing microcalcifications are seen. Axillae are unremarkable. IMPRESSION: BI-RADS Category 1 No mammographic features suspicious for malignancy are identified. ACR BI-RADS Category 1: Negative. Result letter will be mailed to the patient. Note: At least 10% of breast cancer is not imaged by mammography. Dictated by: Dictated on workstation # [id number]
== END ==
LOC: RAD 09:46
PROVIDERS: ATTEND Nurse Practitioner
DX: Z12.31 Encounter for screening mammogram for malignant neoplasm of breast (principal)
CPT/HCPCS: 77063; 77067

== ENCOUNTER 2021-10-13 11:24 | Inpatient (IN) | payer MEDICAID ==
[~2021-10-13] VITALS: Ht 165 cm; Wt 52.0 kg
[2021-10-13] MEDS ORDERED: LACTATED RINGERS 1,000 ML IV ONE (11:45)
[2021-10-13 11:55] LABS: BASOPHILS % (AUTO) 0 % (0-10); EOSINOPHILS % (AUTO) 0 % (0-10); HEMATOCRIT 31 % (35-52); HEMOGLOBIN 9.9 g/dL (11.5-16.0); LYMPHOCYTES # (AUTO) 1.1 10^3/uL (1.0-4.0); LYMPHOCYTES % (AUTO) 8 % (12-44); MEAN CORPUSCULAR HEMOGLOBIN 26 pg (25-34); MEAN CORPUSCULAR HGB CONC 32 g/dL (32-36); MEAN CORPUSCULAR VOLUME 81 fL (80-99); MONOCYTES # (AUTO) 0.9 10^3/uL (0.0-1.0); MONOCYTES % (AUTO) 6 % (0-12); NEUTROPHILS % (AUTO) 85 % (42-75); PLATELET COUNT 494 10^3/uL (130-400); WHITE BLOOD COUNT 14.1 10^3/uL (4.3-11.0)
[2021-10-13] MEDS ORDERED: fentaNYL INJ 100 MCG/2 ML AMP IVP STA (12:02)
[2021-10-13 12:05] LABS: ALBUMIN 3.4 GM/DL (3.2-4.5); CHLORIDE 99 MMOL/L (98-107); POTASSIUM 3.1 MMOL/L (3.6-5.0); SODIUM 135 MMOL/L (135-145)
[2021-10-13 12:06] LABS: CALCIUM 8.7 MG/DL (8.5-10.1)
[2021-10-13 12:07] LABS: GLUCOSE 93 MG/DL (70-105)
[2021-10-13 12:08] LABS: TOTAL PROTEIN 6.6 GM/DL (6.4-8.2)
[2021-10-13 12:09] LABS: BILIRUBIN,TOTAL 0.6 MG/DL (0.1-1.0); CARBON DIOXIDE 19 MMOL/L (21-32); FIBRIN DEGRADATION PRODUCTS 0.82 UG/ML (0.00-0.49); INR 1.1 (0.8-1.4); PROTHROMBIN TIME PATIENT 14.7 SEC (12.2-14.7)
[2021-10-13 12:10] LABS: BASOPHILS % (MANUAL) 1 %; HYPOCHROMASIA SLIGHT; LYMPHOCYTES % (MANUAL) 14 %; MONOCYTES % (MANUAL) 5 %; NEUTROPHILS % (MANUAL) 80 %; POIKILOCYTOSIS SLIGHT
[2021-10-13 12:11] LABS: ALKALINE PHOSPHATASE 97 U/L (40-136); ANISOCYTOSIS SLIGHT; CREATININE SERUM 0.94 MG/DL (0.60-1.30); GFR ESTIMATED 69; MICROCYTOSIS SLIGHT; TOXIC GRANULATION/VACUOLAZATIO 1+
[2021-10-13 12:12] LABS: BUN/CREATININE RATIO 22
[2021-10-13 12:14] LABS: ALANINE AMINOTRANSFERASE 7 U/L (0-55); CREATINE KINASE 477 U/L (29-168); MAGNESIUM 1.9 MG/DL (1.6-2.4)
[2021-10-13] MEDS ORDERED: HOLD METFORMIN - RECEIVED CONTRAST 20 ML VIAL IV SCH ×2 (12:15→12:45)
[2021-10-13] MEDS ORDERED: IOHEXOL 350 MG/ML 100 ML (OMNIPAQUE 350) VIAL IV ONE ×2 (12:15→12:45)
[2021-10-13] MEDS ORDERED: NS 100 ML (IVPB) BAG IV ONE ×2 (12:15→12:45)
[2021-10-13 12:17] LABS: ERYTHROCYTE SEDIMENTATION RATE 48 MM/HR (0-30)
[2021-10-13 12:21] LABS: CREATINE KINASE MB 5.4 NG/ML (<6.6)
--- NOTE | 2021-10-13 12:29 | ED General ---
General Chief Complaint: COVID19 Suspect/Confirmed Stated Complaint: COVID SYMPTOMS,FALL Nursing Triage Note: PT BROUGHT IN BY [facility] FROM HOME WITH COMPLAINT OF FALL, RIGHT HIP PAIN, COUGH, RUNNY NOSE, AND BODY ACHES. PT STATES SHE WAS EXPOSED TO COVID A WEEK AGO. STATES SHE FELL TWO DAYS AGO Source of Information: Patient History of Present Illness Date Seen by Provider: Oct 13, 2021 Time Seen by Provider: 11:27 Initial Comments PT ARRIVES VIA EMS FROM HOME CERVICAL COLLAR IN PLACE PT WITH MULTIPLE COMPLAINTS PT STATES SHE FELL 2 DAYS AGO--STATES SHE GOT DIZZY AND LOST HER BALANCE AND FELL BACKWARD, HITTING HER HEAD ON THE WALL, AND THEN LANDING ON HER RIGHT HIP PT HAS NOT BEEN ABLE TO BEAR WEIGHT SINCE THEN--STATES SHE WAS ABLE TO DRAG HERSELF TO THE LIVING ROOM COUCH, WHERE SHE HAS BEEN FOR THE LAST 2 DAYS. PT DENIES LOSS OF CONSCIOUSNESS C/O SEVERE PAIN TO POSTERIOR NECK, AND TO RIGHT HIP, ALSO TO BACK OF HEAD PT HAS NOT TAKEN ANYTHING FOR PAIN, HAS NOT SOUGHT CARE UNTIL TODAY. STATES SHE CALLED A NEIGHBOR, AND THEN ANOTHER NEIGHBOR CAME TO HER HOUSE, AND THEY CALLED EMS HAS CHRONIC BACK PAIN WITH SCOLIOSIS, AND IS A LITTLE WORSE THAN NORMAL ADDITIONALLY, PT HAS BEEN SICK FOR OVER A WEEK WITH COVID-19 SYMPTOMS, AND HAS A KNOWN EXPOSURE TO COVID FROM ONE OF HER NEIGHBORS HAS NOT SOUGHT CARE FOR THOSE SYMPTOMS AND HAS NOT TAKEN ANYTHING FOR THOSE SYMPTOMS C/O COUGH C/O SHORTNESS OF BREATH C/O CHILLS C/O WEAKNESS AND FATIGUE C/O DECREASED APPETITE C/O RUNNY NOSE C/O BODY ACHES NO HEADACHE NO VISION CHANGES NO PARESTHESIAS OR MOTOR DEFICITS NO LOSS OF TASTE OR SMELL PT HAD COVID-19 VACCINE X 2--LAST SUMMER, NO BOOSTER VACCINE. NO FLU VACCINE PT DENIES HISTORY OF RESPIRATORY PROBLEM PCP: JOSE-LUCINDA, [employer] NATHALIA Allergies and Home Medications Allergies Coded Allergies: No Known Drug Allergies (Unverified , 04/16/20) Patient Home Medication List Omeprazole (Omeprazole) 20 Mg Capsule.dr, 20 MG PO BID Prescribed by: FLOR CALDERON on 04/16/20921 Sucralfate (Carafate) 1 Gm Tablet, 1 GM PO QID Prescribed by: FOLR CALDERON on 04/16/20921 Review of Systems Review of Systems Constitutional: see HPI, chills, dizziness, malaise, weakness EENTM: see HPI, nose congestion Respiratory: see HPI, cough, short of breath Cardiovascular: no symptoms reported; No chest pain, No palpitations, No syncope Gastrointestinal: see HPI; No abdominal pain, No diarrhea; loss of appetite; No vomiting Genitourinary: decreased output Musculoskeletal: see HPI Skin: no symptoms reported Psychiatric/Neurological: No Symptoms Reported; Denies Headache, Denies Numbness, Denies Paresthesia Hematologic/Lymphatic: No Symptoms Reported Immunological/Allergic: no symptoms reported Past Bmxajwl-Gkiepg-Etbryt Hx Patient Social History Tobacco Use?: Yes Tobacco type used: Cigarettes Smoking Status: Current Everyday Smoker Use of E-Cig and/or Vaping dev: No Substance use?: No Alcohol Use?: No Pt feels they are or have been: No Immunizations Up To Date Influenza Vaccine Up-to-Date: Yes; Up-to-Date First/Initial COVID19 Vaccinat: SUMMER 2020 Second COVID19 Vaccination Trevin: SUMMER 2020 COVID19 Vaccine [place] [employer]: [employer] Physical Exam Vital Signs Vital Signs - First Documented 10/13/21 11:25 Temp 36.0 Pulse 78 Resp 16 B/P (MAP) 123/95 (104) Pulse Ox 95 O2 Delivery Room Air Capillary Refill : Height, Weight, BMI Height: '" Weight: lbs. oz. kg; 20.00 BMI Method: Focused Exam Lactate Level 10/13/21 11:40: Lactic Acid Level 0.88 Lactic Acid Level Laboratory Tests Test 10/13/21 11:40 Lactic Acid Level 0.88 MMOL/L (0.50-2.00) Progress/Results/Core Measures Suspected Sepsis SIRS Temperature: Pulse: 78 Respiratory Rate: 16 Laboratory Tests 10/13/21 11:40: White Blood Count 14.1H Blood Pressure 123 /95 Mean: 104 10/13/21 11:40: Lactic Acid Level 0.88 Laboratory Tests 10/13/21 11:40: Creatinine 0.94, INR Comment 1.1, Platelet Count 494H, Total Bilirubin 0.6 Results/Orders Lab Results Laboratory Tests Test 10/13/21 11:40 Range/Units White Blood Count 14.1 H 4.3-11.0 10^3/uL Red Blood Count 3.81 3.80-5.11 10^6/uL Hemoglobin 9.9 L 11.5-16.0 g/dL Hematocrit 31 L 35-52 % Mean Corpuscular Volume 81 80-99 fL Mean Corpuscular Hemoglobin 26 25-34 pg Mean Corpuscular Hemoglobin Concent 32 32-36 g/dL Red Cell Distribution Width 14.9 H 10.0-14.5 % Platelet Count 494 H 130-400 10^3/uL Mean Platelet Volume 10.0 9.0-12.2 fL Immature Granulocyte % (Auto) 1 % Neutrophils (%) (Auto) 85 H 42-75 % Lymphocytes (%) (Auto) 8 L 12-44 % Monocytes (%) (Auto) 6 0-12 % Eosinophils (%) (Auto) 0 0-10 % Basophils (%) (Auto) 0 0-10 % Neutrophils # (Auto) 12.0 H 1.8-7.8 10^3/uL Lymphocytes # (Auto) 1.1 1.0-4.0 10^3/uL Monocytes # (Auto) 0.9 0.0-1.0 10^3/uL Eosinophils # (Auto) 0.0 0.0-0.3 10^3/uL Basophils # (Auto) 0.0 0.0-0.1 10^3/uL Immature Granulocyte # (Auto) 0.1 0.0-0.1 10^3/uL Neutrophils % (Manual) 80 % Lymphocytes % (Manual) 14 % Monocytes % (Manual) 5 % Basophils % (Manual) 1 % Toxic Granulation 1+ Hypochromasia SLIGHT Poikilocytosis SLIGHT Anisocytosis SLIGHT Microcytosis SLIGHT Erythrocyte Sedimentation Rate 48 H 0-30 MM/HR Prothrombin Time 14.7 12.2-14.7 SEC INR Comment 1.1 0.8-1.4 Activated Partial Thromboplast Time 38 H 24-35 SEC D-Dimer 0.82 H 0.00-0.49 UG/ML Sodium Level 135 135-145 MMOL/L Potassium Level 3.1 L 3.6-5.0 MMOL/L Chloride Level 99 98-107 MMOL/L Carbon Dioxide Level 19 L 21-32 MMOL/L Anion Gap 17 H 5-14 MMOL/L Blood Urea Nitrogen 21 H 7-18 MG/DL Creatinine 0.94 0.60-1.30 MG/DL Estimat Glomerular Filtration Rate 69 BUN/Creatinine Ratio 22 Glucose Level 93 70-105 MG/DL Lactic Acid Level 0.88 0.50-2.00 MMOL/L Calcium Level 8.7 8.5-10.1 MG/DL Corrected Calcium 9.2 8.5-10.1 MG/DL Magnesium Level 1.9 1.6-2.4 MG/DL Total Bilirubin 0.6 0.1-1.0 MG/DL Aspartate Amino Transf (AST/SGOT) 21 5-34 U/L Alanine Aminotransferase (ALT/SGPT) 7 0-55 U/L Alkaline Phosphatase 97 40-136 U/L Lactate Dehydrogenase 199 125-220 U/L Total Creatine Kinase 477 H 29-168 U/L Creatine Kinase MB 5.4 <6.6 NG/ML Troponin I < 0.028 <0.028 NG/ML C-Reactive Protein High Sensitivity 11.54 H 0.00-0.50 MG/DL B-Type Natriuretic Peptide 130.4 H <100.0 PG/ML Total Protein 6.6 6.4-8.2 GM/DL Albumin 3.4 3.2-4.5 GM/DL Procalcitonin 0.10 H <0.10 NG/ML Influenza Type A (RT-PCR) Not Detected Not Detecte Influenza Type B (RT-PCR) Not Detected Not Detecte SARS-CoV-2 RNA (RT-PCR) Detected H Not Detecte My Orders Orders - BRADFORD PAREDES DO Ed Iv/Invasive Line Start (10/13/21 11:32) Ekg Tracing (10/13/21 11:32) Catheter(Urinary) Insert & Ass 03,15 (10/13/21 11:32) O2 (10/13/21 11:32) Monitor-Rhythm Ecg Trace Only (10/13/21 11:32) Ct Head/Cervical Spine Wo (10/13/21 11:32) Ct Thoracic/Lumbar Spine Wo (10/13/21 11:32) Chest 1 View, Ap/Pa Only (10/13/21 11:32) Pelvis With Right Hip 2-3views (10/13/21 11:32) Bnp Leon (10/13/21 11:32) Cbc With Automated Diff (10/13/21 11:32) Comprehensive Metabolic Panel (10/13/21 11:32) Creatine Kinase (10/13/21 11:32) Creatine Kinase Mb (10/13/21 11:32) Hs C Reactive Protein (10/13/21 11:32) Fibrin Degradation Products (10/13/21 11:32) Drug Screen Stat (Urine) (10/13/21 11:32) Lactic Acid Analyzer (10/13/21 11:32) Magnesium (10/13/21 11:32) Procalcitonin (Pct) (10/13/21 11:32) Protime With Inr (10/13/21 11:32) Partial Thromboplastin Time (10/13/21 11:32) Ua Culture If Indicated (10/13/21 11:32) Blood Culture (10/13/21 11:32) Erythrocyte Sedimentation Rate (10/13/21 11:32) Troponin I Leon (10/13/21 11:32) Ed Iv/Invasive Line Start (10/13/21 11:32) Lactated Ringers (Lr 1000 Ml Iv Solution (10/13/21 11:45) LDH (10/13/21 11:32) Covid 19 Inhouse Test (10/13/21 11:32) Influenza A And B By Pcr (10/13/21 11:32) Isolation Central Supply Req (10/13/21 11:32) Sputum Culture (10/13/21 11:32) Urine Culture (10/13/21 11:32) Ed Iv/Invasive Line Start (10/13/21 11:32) Vital Signs Adult Sepsis Patie Q15M (10/13/21 11:32) O2 (10/13/21 11:32) Remove Rings In Anticipation O (10/13/21 11:32) Manual Differential (10/13/21 11:40) Fentanyl Inj (Sublimaze Injection) (10/13/21 12:02) Ct Chest/Abdomen/Pelvis W (10/13/21 12:02) Iohexol Injection (Omnipaque 350 Mg/Ml 1 (10/13/21 12:15) Received Contrast (Hold Metformin- Contr (10/13/21 12:15) Ns (Ivpb) (Sodium Chloride 0.9% Ivpb Bag (10/13/21 12:15) Iohexol Injection (Omnipaque 350 Mg/Ml 1 (10/13/21 12:45) Received Contrast (Hold Metformin- Contr (10/13/21 12:45) Ns (Ivpb) (Sodium Chloride 0.9% Ivpb Bag (10/13/21 12:45) Medications Given in ED Current Medications Medications Dose Ordered Sig/Catherine Route Start Time Stop Time Status Last Admin Dose Admin Iohexol 100 ml ONCE ONCE IV 10/13/21 12:15 10/13/21 12:16 DC 10/13/21 12:32 66 ML Lactated Ringer's 1,000 ml @ 0 mls/hr Q0M ONCE IV 10/13/21 11:45 10/13/21 11:46 DC 10/13/21 13:16 0 MLS/HR Sodium Chloride 100 ml ONCE ONCE IV 10/13/21 12:15 10/13/21 12:16 DC 10/13/21 12:33 80 ML Vital Signs/I&O 10/13/21 11:25 Temp 36.0 Pulse 78 Resp 16 B/P (MAP) 123/95 (104) Pulse Ox 95 O2 Delivery Room Air Capillary Refill : Blood Pressure Mean: 104 Progress Note : Progress Note PLACED IN ISOLATION ROOM PPE WORN AT ALL TIMES GIVEN IV FLUIDS NO COUGH NO DYSPNEA NO HYPOXIA--O2 SATS 100% ON ROOM AIR NO FEVER ECG Initial ECG Impression Date: Oct 13, 2021 Initial ECG Impression Time: 11:51 Initial ECG Rate: 73 Initial ECG Rhythm: Normal Sinus Initial ECG Impression: Nonspecific Changes Departure Impression Primary Impression: Fall from standing Additional Impressions: COVID-19 virus infection Dehydration Closed right hip fracture RIGHT SIDED PNEUMONIA DUE TO COVID-19 Departure-Patient Inst. Referrals: [facility] (PCP/Family) Primary Care Physician BRADFORD PAREDES DO Oct 13, 2021 12:29
--- NOTE | 2021-10-13 13:12 | Diagnostic Imaging Report ---
INDICATION: Fall, dyspnea, and cough. COMPARISON: CT from earlier this same day. FINDINGS: Single frontal view of the chest demonstrates normal heart size and pulmonary vascularity. The lungs are well aerated and clear. No large pleural effusion or pneumothorax is seen. The visualized osseous structures show no acute abnormalities. A moderate hiatal hernia is noted. IMPRESSION: No acute cardiopulmonary process. Dictated by: Dictated on workstation # [id number]
--- NOTE | 2021-10-13 13:12 | Diagnostic Imaging Report ---
PROCEDURE: CT chest, abdomen, and pelvis with contrast. TECHNIQUE: Multiple contiguous axial images were obtained through the chest, abdomen, and pelvis after the administration of intravenous contrast. Auto Exposure Controls were utilized during the CT exam to meet ALARA standards for radiation dose reduction. INDICATION: Fall. Compared with abdominal pelvic CT 02/10/2020. CHEST: There is no pneumothorax or hemothorax. No chest wall fracture deformity. The diaphragm is intact. There is a large retrocardiac hiatal hernia chronic. There are scattered calcified benign pulmonary granulomata chronic. There is some very mild peripheral groundglass opacity in the right lower lobe correlate for viral infectious disease. No findings felt suggestive of pulmonary contusion or parenchymal laceration. The aorta patent and intact. No pleural or pericardial hemorrhage. No lymphadenopathy. ABDOMEN/PELVIS: There is no hemoperitoneum. There is no findings of intra or retroperitoneal hemorrhage. Liver, spleen, adrenals, pancreas intact. Kidneys unobstructed and nonacute. There is nonaneurysmal aortic atherosclerotic vascular calcifications. No acute abdominal wall pathology. The uterus and adnexa nonacute. The urinary bladder showed no acute finding. There is irregular thickening of the lower rectum and anal canal. Previously low-density edematous changes were present, now appears more soft tissue in attenuation, neoplasm could not be excluded. This is unrelated to the trauma. There is an impacted fracture of the right subcapital right femoral neck, new from the prior, but its precise acuity indeterminate, correlate with any new right hip pain. The superior-inferior pubic rami and acetabulum intact. Sacrococcygeal segments and SI joints unremarkable. The reconstruction view showed no gross deformity to the thoracolumbar spine. IMPRESSION: 1. Acuity indeterminate, impacted fracture, right femoral neck new from its comparison CT of 01/2020. No other potential acute soft tissue or osseous traumatic finding at the chest, abdomen or pelvis. 2. Groundglass infiltrates in the right lower lobe, viral pneumonia not excluded. 3. Irregular soft tissue nodular thickening of the anal rectal, neoplasm not excluded, no lymphadenopathy or liver mass. Dictated by: Dictated on workstation # [id number]
--- NOTE | 2021-10-13 13:20 | Diagnostic Imaging Report ---
PROCEDURE: CT thoracic and lumbar spine without contrast. TECHNIQUE: Multiple contiguous axial images were obtained through the thoracic and lumbar spine without the use of intravenous contrast. Sagittal and coronal reformations were then performed. All CT scans use one or more of the following dose optimizing techniques: automated exposure control, MA and/or KvP adjustment based on a patient size and exam type, or iterative reconstruction. INDICATION: Traumat, back pain. The reconstructed parasagittal images show the lumbar vertebral body heights and alignment to be similar to the prior CT abdomen/pelvis exam of 02/10/2020. There is no fracture or acute bony abnormality appreciated. There is a disc bulge eccentric to the right at L4-L5. There is no evidence for central stenosis at this level but there is narrowing of the neural foramen on the right. The remainder of the lumbar spine is unremarkable for a high-grade central stenosis or any significant neural foraminal narrowing. There is no sign of a paraspinal mass. The images of the thoracic spine show vertebral body heights and alignment to also be generally within normal limits. There is no fracture or acute bony abnormality evident. There is no high-grade central stenosis identified either. There is a small patchy alveolar/interstitial infiltrate along the periphery of the right midlung.. The lungs where visualized are otherwise generally clear. The large hiatal hernia seen on the previous CT abdomen/pelvis exam is again evident and no different. IMPRESSION: 1. There is no acute bony abnormality of the thoracic or lumbar spine. If clinical concern regarding an acute injury persists, MRI would be recommended for further study. 2. There is no evidence for high-grade central stenosis involving either the thoracic or lumbar spine. However there is a disc bulge eccentric to the right at L4-L5 and there is narrowing of the neural foramen on the right at this level. 3. There does appear to be a small patchy area of pneumonia/atelectasis along the periphery of the right midlung. 4. These results were discussed with Dr. Linda Benjamin. Dictated by: Dictated on workstation # [id number]
--- NOTE | 2021-10-13 13:23 | Diagnostic Imaging Report ---
EXAMINATION: Pelvis and right hip at 12:52 PM. INDICATION: Fell, pelvic pain. TECHNIQUE: A single AP view of the pelvis and AP and lateral views of the right hip were obtained. FINDINGS: There does appear to be a slightly impacted slightly displaced subcapital fracture of the right femoral neck. No other fracture or acute bony abnormality is noted. There is moderate degenerative disease of both hips and sacroiliac joints and of the visualized lower lumbar spine. Incidental note is made of opacification of the distal right ureter from the contrast related to the CT abdomen/pelvis exam performed in conjunction with this study. IMPRESSION: 1. There is a slightly impacted slightly displaced subcapital fracture of the right femoral neck. 2. There is no acute bony abnormality noted otherwise. 3. These results were discussed with Dr. Linda Benjamin at the time of this dictation. Dictated by: Dictated on workstation # [id number]
--- NOTE | 2021-10-13 13:28 | Diagnostic Imaging Report ---
CLINICAL INDICATION: Patient fell and is complaining of head and neck pain. Exam: Head CT without IV contrast with sagittal and coronal reformations. Axial CT scan of the cervical spine with sagittal and coronal reformations. Auto Exposure Controls were utilized during the CT exam to meet ALARA standards for radiation dose reduction. Comparison: CT scan of the head and cervical spine without contrast dated 02/20/2013. Findings: Head CT: There is no evidence of acute cerebral infarct, intracranial hemorrhage, or gross mass effect. The brain parenchymal volume appears appropriate for patient's age. There is normal zuluaga-white matter distinction. There is no significant midline shift or herniation. There is no evidence of hydrocephalus. The basal cisterns are unremarkable. The skull, extracranial soft tissue, and orbits are unremarkable. The paranasal sinuses are unremarkable. Temporal bones show no significant abnormality. Cervical spine: There is no acute fracture or dislocation. There is no significant bony central canal or neural foramen narrowing. There is no significant paraspinal soft tissue abnormality. Bilateral apical pleural parenchymal thickening/scarring is noted. Impression: 1: There is no acute intracranial process. There is no skull fracture. 2: There is no cervical spine fracture or dislocation. Dictated by: Dictated on workstation # [id number]
[2021-10-13 14:14] LABS: CLARITY,URINE CLEAR; COLOR,URINE ORANGE; GLUCOSE, URINE (UA) TRACE (NEGATIVE); KETONES,URINE TRACE (NEGATIVE); LEUKOCYTE ESTERASE ,URINE 2+ (NEGATIVE); NITRITE,URINE NEGATIVE (NEGATIVE); PH,URINE 6.5 (5-9); PROTEIN,URINE 1+ (NEGATIVE)
--- NOTE | 2021-10-13 14:16 | Diagnostic Imaging Report ---
EXAMINATION: Crosstable lateral right hip. INDICATION: Hip pain. TECHNIQUE: A single crosstable lateral view was obtained. FINDINGS: This exam is less than optimal as the hip joint is not well penetrated and difficult to assess. The CT abdomen/pelvis exam performed prior to this study did suggest an impaction fracture of the right femoral neck although the age of that injury was indeterminate. By history, the patient does have right hip pain an it is possible that this injury could be acute or subacute in nature. If further imaging evaluation is desired, then an MRI would be recommended. There is no acute bony abnormality noted otherwise. IMPRESSION: 1. This exam is less than optimal as the hip joint is not well-visualized and the previously described fracture of the right femoral neck is difficult to appreciate. Recommendations as above. 2. These results were discussed with Dr. Linda Benjamin. Dictated by: Dictated on workstation # [id number]
[2021-10-13 14:27] LABS: BACTERIA,URINE TRACE /HPF; RBC,URINE 0-2 /HPF
[2021-10-13 14:36] LABS: AMPHETAMINE SCREEN, URINE NEGATIVE (NEGATIVE); BARBITURATE SCREEN URINE NEGATIVE (NEGATIVE); BENZODIAZEPINES SCREEN URINE POSITIVE (NEGATIVE); CANNABINOID SCREEN, URINE NEGATIVE (NEGATIVE); COCAINE SCREEN URINE NEGATIVE (NEGATIVE); METHADONE STAT NEGATIVE (NEGATIVE); METHAMPHETAMINE SCREEN URINE S NEGATIVE (NEGATIVE); OPIATE SCREEN URINE NEGATIVE (NEGATIVE); OXYCODONE STAT NEGATIVE (NEGATIVE); PROPOXYPHENE STAT NEGATIVE (NEGATIVE); TRICYCLIC ANTIDEPRESSANTS SCRE NEGATIVE (NEGATIVE)
--- NOTE | 2021-10-13 14:45 | History & Physical-Hospitalist ---
PITA HOLLIS 10/13/21 1445: History of Present Illness HPI/Chief Complaint CC: R Hip Pain s/p Fall on 10/11/21, Body Aches, Fatigue, Weakness, SOB, Cough HPI: Sriram Billy is a 60yoF with PMHx of COPD, Anxiety, Depression, and Insomnia who presents to the ED complaining of right hip pain after a fall on 10/11/21. She states she was ambulating without assistance in the restroom attempting to use the toilet when she fell backward, hitting her head on the wall, and landing on her right side. She denies loss of consciousness. She states she was on the floor for several hours before being able to get herself up. Her neighbor brought her to the ED today (10/13/21) after patient was continuing to complain of right hip pain. In the ED, an xray of the right hip demonstrated an impacted subcapital femoral neck fracture. Orthopaedic surgery was consulted. Incidentally, the patient endorses a history of COVID-19 exposure approximately one week ago. Additionally, the patient endorses body aches, fatigue, weakness, shortness of breath, and cough for the past week. The patient tested positive for COVID-19 in the ED. She is maintaining oxygen saturation between 98-100% on room air at this time. Source: patient, RN/MD, RN notes reviewed, EMS notes reviewed Exam Limitations: no limitations Date Seen 10/13/21 Time Seen by a Provider: 14:30 Attending Physician Sara Adams DO [facility] Referring Physician Date of Admission 10/13/21 Home Medications & Allergies Home Medications Reviewed patient Home Medication Reconciliation performed by pharmacy medication reconciliations coroner transport technician and/or nursing. Patients Allergies have been reviewed. Allergies Allergies Coded Allergies No Known Drug Allergies (Unverified04/16/20) Past Zsvsvzg-Dksyig-Rrlrwk Hx Patient Social History Tobacco Use?: Yes Tobacco type used: Cigarettes Smoking Status: Current Everyday Smoker Use of E-Cig and/or Vaping dev: No Substance use?: No Alcohol Use?: No Pt feels they are or have been: No Immunizations Up To Date First/Initial COVID19 Vaccinat: SUMMER 2020 Second COVID19 Vaccination Trevin: SUMMER 2020 Tetanus Booster (TDap): Unknown Current Status Advance Directives: No Primary Language: Belgian Preferred Spoken Language: Belgian Past Medical History COPD Currently Using CPAP: No Currently Using BIPAP: No Gastroesophageal Reflux Sleep Difficulties, Anxiety, Depression Family Medical History No Pertinent Family Hx Review of Systems Constitutional: chills, weakness, other (body aches) EENTM: no symptoms reported, other (runny nose) Respiratory: cough, dyspnea on exertion; No orthopnea; short of breath (mild); No stridor, No wheezing Cardiovascular: no symptoms reported; No chest pain, No Hx of Intervention, No palpitations Gastrointestinal: no symptoms reported Genitourinary: no symptoms reported Musculoskeletal: other (right hip pain) Skin: no symptoms reported Psychiatric/Neurological: No Symptoms Reported Physical Exam Physical Exam Vital Signs Vital Signs - First Documented 10/13/21 11:25 Temp 36.0 Pulse 78 Resp 16 B/P (MAP) 123/95 (104) Pulse Ox 95 O2 Delivery Room Air Capillary Refill : Height, Weight, BMI Height: '" Weight: lbs. oz. kg; 20.00 BMI Method: General Appearance: No Apparent Distress, WD/WN, Anxious HEENT: PERRL/EOMI, Pharynx Normal, Moist Mucous Membranes Neck: Full Range of Motion, Normal Inspection, Non Tender, Supple Respiratory: Chest Non Tender, Lungs Clear, Normal Breath Sounds, No Accessory Muscle Use, No Respiratory Distress Cardiovascular: Regular Rate, Rhythm, No Edema, No Gallop, No JVD, No Murmur, Normal Peripheral Pulses Gastrointestinal: Normal Bowel Sounds, No Organomegaly, Non Tender, Soft Rectal: Deferred Back: Normal Inspection Extremity: Normal Capillary Refill, Normal Inspection, Normal Range of Motion, Non Tender, No Calf Tenderness, No Pedal Edema, Other (right hip tenderness to palpation) Neurologic/Psychiatric: Alert, Oriented x3, No Motor/Sensory Deficits, Normal Mood/Affect, switchman II-XII Norm as Tested Skin: Normal Color, Warm/Dry Lymphatic: No Adenopathy Results Results/Procedures Labs Laboratory Tests 10/13/21 11:40 Patient resulted labs reviewed. Imaging: Reviewed Imaging Report Assessment/Plan Admission Diagnosis Right Subcapital Femoral Neck Fracture COVID-19 Admission Status: Inpatient Order (span 2 midnights) Reason for Inpatient Admission: Surgery likely 10/14/21 with one overnight stay expected following Assessment and Plan Assessment: Right Subcapital Femoral Neck Fracture Fall From Standing COVID-19 Hx of COPD Dehydration Anemia Leukocytosis Thrombocytosis Hypokalemia Elevated Anion Gap Elevated Creatine Kinase Elevated BNP Elevated D-dimer Elevated APTT Positive Benzodiazepines on UDS Plan: Orthopaedic Surgery consulted - surgery tomorrow afternoon Maintaining O2 saturations on room air COVID protocol Blood cultures pending Urine culture pending CXR, CT Abdomen/Pelvis w/ contrast completed in ED CT Head & CT Spine completed in ED - no acute process Diagnosis/Problems Diagnosis/Problems (1) Closed right hip fracture Status: Acute Qualifiers: Encounter type: initial encounter Qualified Codes: S72.001A - Fracture of unspecified part of neck of right femur, initial encounter for closed fracture (2) COVID-19 virus infection Status: Acute (3) Fall from standing Status: Acute Qualifiers: Encounter type: initial encounter Qualified Codes: W19.XXXA - Unspecified fall, initial encounter (4) Dehydration Status: Acute (5) Hypokalemia Status: Acute (6) Anemia SARA ADAMS DO 10/14/21 0529: History of Present Illness HPI/Chief Complaint Chief complaint: Right hip fracture with Covid History present illness: This is a 60-year-old white female who presented to the ER after laying on the couch for 2 days due to fatigue weakness and cough who apparently had a fall landing on her right side and having pain but could not get up to assess her issue. She came to the ER and she was found to have a right hip fracture. She is currently on room air. She was Covid positive swab. Source: patient, RN/MD, RN notes reviewed, EMS notes reviewed Exam Limitations: no limitations Past Rrfktvh-Eooghk-Yocsks Hx Patient Social History Marrital Status: single Employed/Student: unemployed Smoking Status: Former Smoker Past Medical History COPD Gastroesophageal Reflux Sleep Difficulties, Anxiety, Depression Review of Systems Constitutional: see HPI, weakness EENTM: no symptoms reported Respiratory: dyspnea on exertion Cardiovascular: no symptoms reported Gastrointestinal: no symptoms reported Genitourinary: no symptoms reported Musculoskeletal: joint pain Skin: no symptoms reported Psychiatric/Neurological: No Symptoms Reported Physical Exam Physical Exam General Appearance: No Apparent Distress, Chronically ill, Thin Neck: Full Range of Motion Respiratory: Chest Non Tender, Lungs Clear, Normal Breath Sounds, No Accessory Muscle Use, No Respiratory Distress Cardiovascular: Regular Rate, Rhythm, No Edema, No Gallop, No JVD, No Murmur, Normal Peripheral Pulses Neurologic/Psychiatric: Alert, Oriented x3, No Motor/Sensory Deficits, Normal Mood/Affect Assessment/Plan Admission Diagnosis Assessment: Right hip fracture from fall COVID-19 no hypoxia Dehydration Plan: Right hip fracture repair tomorrow Benefits outweigh medical risks Admission Status: Inpatient Order (span 2 midnights) Reason for Inpatient Admission: Right hip fracture Supervisory-Addendum Brief Verification & Attestation Participated in pt care: history, MDM, physical Personally performed: exam, history, MDM, supervision of care Care discussed with: Medical Student Procedures: n/a Results interpretation: Verified all documentation Verification and Attestation of Medical Student E/M Service A medical student performed and documented this service in my presence. I reviewed and verified all information documented by the medical student and made modifications to such information, when appropriate. I personally performed the physical exam and medical decision making. Sara Adams, Oct 14, 2021,05:26 PITA HOLLIS Oct 13, 2021 14:45 SARA ADAMS DO Oct 14, 2021 05:29
--- NOTE | 2021-10-13 14:52 | Consultation - Ortho ---
Consult - Ortho Subjective Date of Exam 10/13/21 Chief Complaint Fracture right femoral neck HPI/Events since last exam Mrs. Billy is a 60-year-old white female who stated she fell at home 2 days ago. She stated she fell onto her right hip. She was brought to the emergency room this morning where she was evaluated and x-rayed noted to have an impacted subcapital fracture of the right hip. She Also tested positive for Covid. Exposure was approximately 1 week ago or symptoms started approximately 1 week ago. She denies any previous hip pain. Is complaining of a little bit of neck and back pain. Medical, Surgical History Reviewed and no additions or change Social History Reviewed and no additions or change Family History Reviewed and no additions or change Review of Systems Reviewed and no additions or changes Allergies: Coded Allergies: No Known Drug Allergies (Unverified , 04/16/20) Home Meds Active Scripts Sucralfate (Carafate) 1 Gm Tablet, 1 GM PO QID, #120 TAB Crush or dissolve and mix with 5-10 ML water to make a slurry. Take 30 minutes before meals and bedtime Prov:FLOR TRUJILLO MD 04/16/20 Omeprazole (Omeprazole) 20 Mg Capsule.dr, 20 MG PO BID, #60 CAP 2 Refills Prov:FLOR TRUJILLO MD 04/16/20 Objective Exam Constitutional: [] HEENT: [] Neck: [The patient is able to lift her head off the bed and has no pain with motion but does have some mild pain with palpation.] Cardiovascular: [] Respiratory: [] Gastrointestinal: [] Genitourinary: [] Skin: [] Back/Spine: [Minimal pain with palpation lower back] Extremities: [No pain in the upper extremities. No deformity. Full range of motion. Equal pulses. Normal sensation with good cap refill. Good strength. Equal strength Lower extremitiespain with palpation right hip. No pain left hip. No pain either knee or ankle. Normal sensation of the foot and toes with good cap refill and equal pulses.] Neurologic: [] Psychiatric: [] Hematologic/lymphatic/immunologic: [] Vital Signs Vital Signs Date Time Temp Pulse Resp B/P (MAP) Pulse Ox O2 Delivery O2 Flow Rate FiO2 10/13/21 11:25 36.0 78 16 123/95 (104) 95 Room Air Lab Results Laboratory Tests 10/13/21 11:40: White Blood Count 14.1H, Red Blood Count 3.81, Hemoglobin 9.9L, Hematocrit 31L, Mean Corpuscular Volume 81, Mean Corpuscular Hemoglobin 26, Mean Corpuscular Hemoglobin Concent 32, Red Cell Distribution Width 14.9H, Platelet Count 494H, Mean Platelet Volume 10.0, Immature Granulocyte % (Auto) 1, Neutrophils (%) (Auto) 85H, Lymphocytes (%) (Auto) 8L, Monocytes (%) (Auto) 6, Eosinophils (%) (Auto) 0, Basophils (%) (Auto) 0, Neutrophils # (Auto) 12.0H, Lymphocytes # (Auto) 1.1, Monocytes # (Auto) 0.9, Eosinophils # (Auto) 0.0, Basophils # (Auto) 0.0, Immature Granulocyte # (Auto) 0.1, Neutrophils % (Manual) 80, Lymphocytes % (Manual) 14, Monocytes % (Manual) 5, Basophils % (Manual) 1, Toxic Granulation 1+, Hypochromasia SLIGHT, Poikilocytosis SLIGHT, Anisocytosis SLIGHT, Microcytosis SLIGHT, Erythrocyte Sedimentation Rate 48H, Prothrombin Time 14.7, INR Comment 1.1, Activated Partial Thromboplast Time 38H, D-Dimer 0.82H, Sodium Level 135, Potassium Level 3.1L, Chloride Level 99, Carbon Dioxide Level 19L, Anion Gap 17H, Blood Urea Nitrogen 21H, Creatinine 0.94, Estimat Glomerular Filtration Rate 69, BUN/Creatinine Ratio 22, Glucose Level 93, Lactic Acid Level 0.88, Calcium Level 8.7, Corrected Calcium 9.2, Magnesium Level 1.9, Total Bilirubin 0.6, Aspartate Amino Transf (AST/SGOT) 21, Alanine Aminotransferase (ALT/SGPT) 7, Alkaline Phosphatase 97, Lactate Dehydrogenase 199, Total Creatine Kinase 477H, Creatine Kinase MB 5.4, Troponin I < 0.028, C-Reactive Protein High Sensitivity 11.54H, B-Type Natriuretic Peptide 130.4H, Total Protein 6.6, Albumin 3.4, Procalcitonin 0.10H, Influenza Type A (RT-PCR) Not Detected, Influenza Type B (RT-PCR) Not Detected, SARS-CoV-2 RNA (RT-PCR) DetectedH 10/13/21 14:07: Urine Color ORANGE, Urine Clarity CLEAR, Urine pH 6.5, Urine Specific [place] 1. 025H, Urine Protein 1+H, Urine Glucose (UA) TRACEH, Urine Ketones TRACEH, Urine Nitrite NEGATIVE, Urine Bilirubin 2+H, Urine Urobilinogen 1.0, Urine Leukocyte Esterase 2+H, Urine RBC (Auto) 1+H, Urine RBC 0-2, Urine WBC 25-52, Urine Crystals NONE, Urine Bacteria TRACE, Urine Casts NONE, Urine Mucus SMALLH, Urine Culture Indicated CULTURE PENDING, Urine Opiates Screen NEGATIVE, Urine Oxycodone Screen NEGATIVE, Urine Methadone Screen NEGATIVE, Urine Propoxyphene Screen NEGATIVE, Urine Barbiturates Screen NEGATIVE, Ur Tricyclic Antidepressants Screen NEGATIVE, Urine Phencyclidine Screen NEGATIVE, Urine Amph etamines Screen NEGATIVE, Urine Methamphetamines Screen NEGATIVE, Urine Benzodiazepines Screen POSITIVEH, Urine Cocaine Screen NEGATIVE, Urine Cannabinoids Screen NEGATIVE Imaging X-rays and CT scan were reviewed which shows an impacted subcapital fracture of the right hip with minimal displacement Assessment and Plan Assessment Impacted subcapital fracture right hip Problem List Impacted subcapital fracture right hip Plan Treatment options were discussed with the patient. Since she has had no previous hip problems we will try to proceed with fixation of the impacted subcapital fracture with either screws or femoral neck system. I did talk to her about total hip since she falls in that age group and her total hip is preferred over a hemiarthroplasty. She would prefer not having a total hip at this point. She understands there is about a 30% chance of avascular necrosis of the femoral head and also the chance of displacement even with fixation that could result in a total hip later on.She understands the procedure risk complications would like to proceed. I am recommending a femoral neck system fixation. We discussed pre and post antibiotics as well as postop DVT prophylaxis.She understands with fixation she would not be full weightbearing for approximately 4 to 6 weeks. Again she would like to proceed with the above surgery. I discussed the case with Dr. Adams and she thinks that we can proceed with surgery tomorrow.She is scheduled for approximately [address] in Zhang's traction this evening. Final Diagonsis Impacted subcapital fracture right hip Level of the visit: Level 3 MORENO PARMAR MD Oct 13, 2021 14:52
[2021-10-13 15:23] LABS: BILIRUBIN,URINE 2+ (NEGATIVE)
[2021-10-13] MEDS ORDERED: MILK OF MAGNESIA 400 MG/5 ML 30 ML UDC PO PRN (16:15)
[2021-10-13] MEDS ORDERED: BISACODYL 10 MG SUPP (DULCOLAX) PR PRN (16:15)
[2021-10-13] MEDS ORDERED: ANTACID SUSP 30 ML UDC (MYLANTA) PO PRN (16:15)
[2021-10-13] MEDS ORDERED: MELATONIN 3 MG TABLET PO PRN (16:15)
[2021-10-13] MEDS ORDERED: ACETAMINOPHEN 325 MG TABLET PO PRN (16:15)
[2021-10-13] MEDS ORDERED: ONDANSETRON 4 MG (ZOFRAN) ORAL DISSOLVE TAB PO PRN (16:15)
[2021-10-13] MEDS ORDERED: PATIENT MAY USE OWN MEDS, ALL PO SCH (16:15)
[2021-10-13] MEDS ORDERED: CALCIUM CARBONATE 500 MG (TUMS) TAB.CHEW PO PRN (16:15)
[2021-10-13] MEDS ORDERED: diphenhydrAMINE 50 MG/ML INJ (BENADRYL) IVP PRN (16:15)
[2021-10-13] MEDS ORDERED: diphenhydrAMINE 25 MG TAB (BENADRYL) PO PRN (16:15)
[2021-10-13] MEDS ORDERED: morphine INJ 10 MG/ML 1ML (SYR OR VIAL) IVP PRN (16:15)
[2021-10-13] MEDS ORDERED: polyethylene glycoL POWDER 17 GM (MIRALAX) PACK PO PRN (16:15)
[2021-10-13] MEDS ORDERED: LACTULOSE SYRUP 10GM/15ML (ENULOSE) 30ML UDC PO PRN (16:15)
[2021-10-13 16:39] VITALS: BP 127/69
[2021-10-13] MEDS: AZITHROMYCIN INJECTION 500 MG in NS (IVPB) 250 ML IV SCH (16:50)
[2021-10-13] MEDS: cefTRIAXone 1 GM PRE-MIX 50 ML IV SCH (16:50)
--- NOTE | 2021-10-13 17:30 | Diagnostic Imaging Report ---
EXAMINATION: US Venous Lower Ext Kirit. TECHNIQUE: Multiple real-time grayscale images were obtained over the lower extremities in various projections, bilaterally. Additional duplex Doppler and color Doppler images were also obtained. HISTORY: Swelling FINDINGS: No comparison available. The bilateral common femoral veins, deep femoral veins, superficial femoral veins and popliteal veins are patent with normal zuluaga scale and doppler appearance. There is normal respiratory variation and augmentation. IMPRESSION: 1. No DVT of either lower extremity. Dictated by: Dictated on workstation # [id number]
[2021-10-13] MEDS: DOCUSATE SODIUM 100 MG (COLACE) CAP PO SCH (19:36)
[2021-10-13] MEDS: SENNOSIDES 8.6 MG (SENOKOT) TAB PO SCH (19:37)
[2021-10-13] MEDS: morphine INJ 4 MG/ML 1 ML (VIAL/SYRINGE) IV PRN (19:37)
[2021-10-13] MEDS ORDERED: TRAZ150T72 PO (19:57)
[2021-10-13] MEDS ORDERED: NICOTINE 14 MG (NICODERM) PATCH TD ONE ×2 (20:00→22:30)
[2021-10-13 20:46] VITALS: BP 104/58
[2021-10-13] MEDS: NS IV 1000 ML 1,000 ML IV SCH (21:18)
[2021-10-13 21:41] VITALS: BP 107/58
[2021-10-13] MEDS ORDERED: RT-ALBUTEROL HFA 8.5 GM INHALER IH PRN (22:00)
[2021-10-13] MEDS: traZODone 150 MG (DESYREL) TABLET PO SCH (22:28)
[2021-10-13 23:05] VITALS: BP 113/59
[2021-10-14] VITALS (13 sets, daily range): BP systolic 84–106; BP diastolic 50–97
[2021-10-14] MEDS: RT-ALBUTEROL HFA 8.5 GM INHALER IH SCH ×3 (02:28→21:12)
[2021-10-14] MEDS: morphine INJ 4 MG/ML 1 ML (VIAL/SYRINGE) IV PRN ×3 (04:24→20:46)
[2021-10-14 05:59] LABS: BASOPHILS % (AUTO) 0 % (0-10); EOSINOPHILS # (AUTO) 0.1 10^3/uL (0.0-0.3); EOSINOPHILS % (AUTO) 1 % (0-10); HEMATOCRIT 25 % (35-52); HEMOGLOBIN 8.3 g/dL (11.5-16.0); LYMPHOCYTES # (AUTO) 0.5 10^3/uL (1.0-4.0); LYMPHOCYTES % (AUTO) 6 % (12-44); MEAN CORPUSCULAR HEMOGLOBIN 26 pg (25-34); MEAN CORPUSCULAR HGB CONC 33 g/dL (32-36); MEAN CORPUSCULAR VOLUME 80 fL (80-99); MEAN PLATELET VOLUME 10.1 fL (9.0-12.2); MONOCYTES # (AUTO) 0.4 10^3/uL (0.0-1.0); MONOCYTES % (AUTO) 5 % (0-12); NEUTROPHILS # (AUTO) 7.5 10^3/uL (1.8-7.8); NEUTROPHILS % (AUTO) 88 % (42-75); PLATELET COUNT 381 10^3/uL (130-400); WHITE BLOOD COUNT 8.6 10^3/uL (4.3-11.0)
[2021-10-14 06:20] LABS: ALBUMIN 2.5 GM/DL (3.2-4.5); BILIRUBIN,TOTAL 0.3 MG/DL (0.1-1.0); CALCIUM 7.6 MG/DL (8.5-10.1); CREATININE SERUM 0.78 MG/DL (0.60-1.30); POTASSIUM 2.8 MMOL/L (3.6-5.0); TOTAL PROTEIN 4.8 GM/DL (6.4-8.2)
[2021-10-14] MEDS ORDERED: MAGNESIUM 1 GM/100 ML IVPB 100 ML IV ONE ×2 (06:45→19:55)
[2021-10-14] MEDS: NS IV 1000 ML 1,000 ML IV SCH ×3 (07:02→23:24)
[2021-10-14] MEDS: POTASSIUM CL 10MEQ/50ML IVPB 50 ML IV SCH ×4 (07:02→20:26)
--- NOTE | 2021-10-14 07:34 | Physical Therapy Progress Note ---
Therapy Progress Note Patient scheduled to have surgery in afternoon on 10/14. PT will eval on 10/15 RADHA RASCON PT Oct 14, 2021 07:34
--- NOTE | 2021-10-14 08:11 | Occ Therapy Progress Note ---
Therapy Progress Note Pt scheduled to have surgery on R hip this afternoon. OT will initiate evaluation/tx tomorrow, 10/15/21 JOSÉ MIGUEL GARZA OT Oct 14, 2021 08:11
[2021-10-14] MEDS: DOCUSATE SODIUM 100 MG (COLACE) CAP PO SCH ×2 (09:00→20:26)
[2021-10-14] MEDS: NICOTINE 14 MG (NICODERM) PATCH TD SCH (09:00)
[2021-10-14] MEDS ORDERED: ENOXAPARIN 40 MG/0.4 ML (LOVENOX) SYR SC SCH (09:00)
[2021-10-14] MEDS: SENNOSIDES 8.6 MG (SENOKOT) TAB PO SCH ×2 (09:00→20:26)
--- NOTE | 2021-10-14 10:49 | Progress Note - Hospitalist ---
PITA HOLLIS 10/14/21 1049: Subjective HPI/CC On Admission Date Seen by Provider: Oct 14, 2021 Time Seen by Provider: 09:30 Chief complaint: Right hip fracture with Covid History present illness: This is a 60-year-old white female who presented to the ER after laying on the couch for 2 days due to fatigue weakness and cough who apparently had a fall landing on her right side and having pain but could not get up to assess her issue. She came to the ER and she was found to have a right hip fracture. She is currently on room air. She was Covid positive swab. Subjective/Events-last exam Patient resting comfortably in bed in Zhang's traction. She endorses minor right hip pain overnight. She has been maintaining oxygen saturation on room air overnight. She denies chest pain, palpitations, shortness of breath, nausea, vomiting, diarrhea, and abdominal pain. She is asking what time surgery will be today. Review of Systems General: No Chills, No Night Sweats HEENT: No Head Aches, No Visual Changes, No Eye Pain Pulmonary: No Dyspnea, No Cough Cardiovascular: No: Chest Pain, Palpitations, Orthopnea Gastrointestinal: No: Nausea, Vomiting, Abdominal Pain, Diarrhea, Constipation Genitourinary: No Dysuria, No Frequency Musculoskeletal: other (right hip pain); No: leg pain, foot pain Neurological: No: Weakness, Numbness Focused Exam Sepsis Stage: Ruled Out Reason for ruling out sepsis: SIRS criteria not met Lactate Level 10/13/21 11:40: Lactic Acid Level 0.88 Respiratory: Chest Non Tender, Lungs Clear, Normal Breath Sounds, No Accessory Muscle Use, No Respiratory Distress Cardiovascular: Regular Rate, Rhythm, No Edema, No Gallop, No JVD, No Murmur, Normal Peripheral Pulses Skin: normal color, warm/dry Objective Exam Vital Signs Vital Signs Date Time Temp Pulse Resp B/P (MAP) Pulse Ox O2 Delivery O2 Flow Rate FiO2 10/14/21 11:17 36.8 76 20 98/50 (66) 96 Room Air Capillary Refill : General Appearance: No Apparent Distress, Thin HEENT: PERRL/EOMI, Pharynx Normal, Moist Mucous Membranes Neck: Full Range of Motion, Normal Inspection, Non Tender, Supple Respiratory: Chest Non Tender, Lungs Clear, Normal Breath Sounds, No Accessory Muscle Use, No Respiratory Distress Cardiovascular: Regular Rate, Rhythm, No Edema, No Gallop, No JVD, No Murmur, Normal Peripheral Pulses Gastrointestinal: Normal Bowel Sounds, No Organomegaly, Non Tender, Soft Rectal: Deferred Back: Normal Inspection Extremity: Normal Capillary Refill, Normal Range of Motion, Non Tender, No Calf Tenderness, No Pedal Edema, Other (right leg in Zhang's traction) Neurologic/Psychiatric: Alert, Oriented x3, No Motor/Sensory Deficits, Normal Mood/Affect, mass spectroscopist II-XII Norm as Tested Skin: Normal Color, Warm/Dry Lymphatic: No Adenopathy Results/Procedures Lab Laboratory Tests 10/14/21 05:49 Patient resulted labs reviewed. Imaging: Reviewed Imaging Report Assessment/Plan Assessment and Plan Assess & Plan/Chief Complaint Assessment: Right Subcapital Femoral Neck Fracture Fall From Standing COVID-19 Hx of COPD Anemia Hypokalemia Tobacco Use Insomnia Plan: Orthopaedic Surgery consulted - surgery today Maintaining O2 saturations on room air COVID protocol Ceftriaxone & Azithromycin D#3 Labial wound culture pending Urine culture pending IV K+ replacement IV NS @ 80mL/hr Diagnosis/Problems Diagnosis/Problems (1) Closed right hip fracture Status: Acute Qualifiers: Qualified Codes: S72.001A - Fracture of unspecified part of neck of right femur, initial encounter for closed fracture (2) COVID-19 virus infection Status: Acute (3) Fall from standing Status: Acute Qualifiers: Qualified Codes: W19.XXXA - Unspecified fall, initial encounter (4) Hypokalemia Status: Acute (5) Anemia (6) Tobacco use Status: Chronic (7) Insomnia Status: Chronic (8) Dehydration Status: Resolved Resolution Date/Time: 10/14/21 @ 00:00 Clinical Quality Measures DVT/VTE Risk/Contraindication: Contraindications-Pharm: Other *list below* Other: operation SARA ADAMS DO 10/15/21 0604: Subjective Subjective/Events-last exam Pt is ready for hip fracture repair No hypoxia Labs remain stable, replacing potassium Gentle IV fluids maintained Review of Systems General: Fatigue, Malaise Musculoskeletal: leg pain Objective Exam General Appearance: No Apparent Distress, WD/WN, Chronically ill, Thin Respiratory: Lungs Clear, Normal Breath Sounds Cardiovascular: Regular Rate, Rhythm Neurologic/Psychiatric: Alert, Oriented x3 Assessment/Plan Assessment and Plan Assess & Plan/Chief Complaint Supportive care Pain control Supervisory-Addendum Brief Verification & Attestation Participated in pt care: history, MDM, physical Personally performed: exam, history, MDM, supervision of care Care discussed with: Medical Student Procedures: n/a Results interpretation: Verified all documentation Verification and Attestation of Medical Student E/M Service A medical student performed and documented this service in my presence. I reviewed and verified all information documented by the medical student and made modifications to such information, when appropriate. I personally performed the physical exam and medical decision making. Sara Adams, Oct 15, 2021,06:04 PITA HOLLIS Oct 14, 2021 10:49 SARA ADAMS DO Oct 15, 2021 06:04
[2021-10-14] MEDS ORDERED: HYDR-700 PO (10:55)
[2021-10-14] MEDS ORDERED: SERT-414 PO (10:55)
[2021-10-14] MEDS ORDERED: NEO/POLY/BAC (NEOSPORIN) OINT 15 GM TUBE ONE (11:14)
--- NOTE | 2021-10-14 11:28 | Progress Note - Ortho ---
Progress Note Subjective Date of Exam 10/14/21 Chief Complaint Impacted subcapital fracture right hip HPI/Events since last exam Mrs. Billy is doing fairly well. Awaiting surgery. She is comfortable in her Zhang's traction. Review of Systems Unchanged Allergies: Coded Allergies: No Known Drug Allergies (Unverified , 04/16/20) Home Meds Reported Medications Sertraline HCl (Sertraline HCl) 100 Mg Tablet, 200 MG PO DAILY, TAB TAKES 2 (100MG) TABS 10/14/21 Hydroxyzine HCl (Hydroxyzine HCl) 25 Mg Tablet, 25 MG PO QID PRN for ANXIETY, TAB 10/14/21 Trazodone HCl (Trazodone HCl) 150 Mg Tablet, 150 MG PO HS, TAB 10/13/21 Discontinued Scripts Sucralfate (Carafate) 1 Gm Tablet, 1 GM PO QID, #120 TAB Crush or dissolve and mix with 5-10 ML water to make a slurry. Take 30 minutes before meals and bedtime Prov:FLOR TRUJILLO MD 04/16/20 Omeprazole (Omeprazole) 20 Mg Capsule.dr, 20 MG PO BID, #60 CAP 2 Refills Prov:FLOR TRUJILLO MD 04/16/20 Objective Exam Constitutional: [] HEENT: [] Neck: [] Cardiovascular: [] Respiratory: [] Gastrointestinal: [] Genitourinary: [] Skin: [] Back/Spine: [] Extremities: [Pain right hip.Normal sensation both lower extremities. Equal pulses] Neurologic: [] Psychiatric: [] Hematologic/lymphatic/immunologic: [] Vital Signs Vital Signs Date Time Temp Pulse Resp B/P (MAP) Pulse Ox O2 Delivery O2 Flow Rate FiO2 10/14/21 11:17 36.8 76 20 98/50 (66) 96 Room Air 10/14/21 08:00 98 Room Air 10/14/21 07:44 36.8 81 20 90/60 (70) 93 Room Air 10/14/21 07:38 96 Room Air 10/14/21 04:20 36.4 69 20 92/50 (64) 95 Room Air 10/14/21 02:29 96 Room Air 10/13/21 23:05 36.4 69 20 113/59 (77) 96 Room Air 10/13/21 21:41 37.5 58 98 10/13/21 20:46 37.2 58 20 104/58 (73) 98 Room Air 10/13/21 20:00 98 Room Air 10/13/21 19:46 Room Air 10/13/21 16:39 35.9 65 16 127/69 (88) 95 Room Air 10/13/21 15:53 64 20 118/83 100 Room Air I & O 10/14/21 06:59 Intake Total 4400 ml Output Total 950 ml Balance 3450 ml Lab Results Laboratory Tests 10/13/21 11:40: White Blood Count 14.1H, Red Blood Count 3.81, Hemoglobin 9.9L, Hematocrit 31L, Mean Corpuscular Volume 81, Mean Corpuscular Hemoglobin 26, Mean Corpuscular Hemoglobin Concent 32, Red Cell Distribution Width 14.9H, Platelet Count 494H, Mean Platelet Volume 10.0, Immature Granulocyte % (Auto) 1, Neutrophils (%) (Auto) 85H, Lymphocytes (%) (Auto) 8L, Monocytes (%) (Auto) 6, Eosinophils (%) (Auto) 0, Basophils (%) (Auto) 0, Neutrophils # (Auto) 12.0H, Lymphocytes # (Auto) 1.1, Monocytes # (Auto) 0.9, Eosinophils # (Auto) 0.0, Basophils # (Auto) 0.0, Immature Granulocyte # (Auto) 0.1, Neutrophils % (Manual) 80, Lymphocytes % (Manual) 14, Monocytes % (Manual) 5, Basophils % (Manual) 1, Toxic Granulation 1+, Hypochromasia SLIGHT, Poikilocytosis SLIGHT, Anisocytosis SLIGHT, Microcytosis SLIGHT, Erythrocyte Sedimentation Rate 48H, Prothrombin Time 14.7, INR Comment 1.1, Activated Partial Thromboplast Time 38H, D-Dimer 0.82H, Sodium Level 135, Potassium Level 3.1L, Chloride Level 99, Carbon Dioxide Level 19L, Anion Gap 17H, Blood Urea Nitrogen 21H, Creatinine 0.94, Estimat Glomerular Filtration Rate 69, BUN/Creatinine Ratio 22, Glucose Level 93, Lactic Acid Level 0.88, Calcium Level 8.7, Corrected Calcium 9.2, Magnesium Level 1.9, Total Bilirubin 0.6, Aspartate Amino Transf (AST/SGOT) 21, Alanine Aminotransferase (ALT/SGPT) 7, Alkaline Phosphatase 97, Lactate Dehydrogenase 199, Total Creatine Kinase 477H, Creatine Kinase MB 5.4, Troponin I < 0.028, C-Reactive Protein High Sensitivity 11.54H, B-Type Natriuretic Peptide 130.4H, Total Protein 6.6, Albumin 3.4, Procalcitonin 0.10H, Influenza Type A (RT-PCR) Not Detected, Influenza Type B (RT-PCR) Not Detected, SARS-CoV-2 RNA (RT-PCR) DetectedH 10/13/21 14:07: Urine Color ORANGE, Urine Clarity CLEAR, Urine pH 6.5, Urine Specific [place] 1.025H, Urine Protein 1+H, Urine Glucose (UA) TRACEH, Urine Ketones TRACEH, Urine Nitrite NEGATIVE, Urine Bilirubin 2+H, Urine Urobilinogen 1.0, Urine Leukocyte Esterase 2+H, Urine RBC (Auto) 1+H, Urine RBC 0-2, Urine WBC 25-52, Urine Crystals NONE, Urine Bacteria TRACE, Urine Casts NONE, Urine Mucus SMALLH, Urine Culture Indicated CULTURE PENDING, Urine Opiates Screen NEGATIVE, Urine Oxycodone Screen NEGATIVE, Urine Methadone Screen NEGATIVE, Urine Propoxyphene Screen NEGATIVE, Urine Barbiturates Screen NEGATIVE, Ur Tricyclic Antidepressants Screen NEGATIVE, Urine Phencyclidine Screen NEGATIVE, Urine Amphetamines Screen NEGATIVE, Urine Methamphetamines Screen NEGATIVE, Urine B enzodiazepines Screen POSITIVEH, Urine Cocaine Screen NEGATIVE, Urine Cannabinoids Screen NEGATIVE 10/14/21 05:49: White Blood Count 8.6, Red Blood Count 3.15L, Hemoglobin 8.3L, Hematocrit 25L, Mean Corpuscular Volume 80, Mean Corpuscular Hemoglobin 26, Mean Corpuscular Hemoglobin Concent 33, Red Cell Distribution Width 15.1H, Platelet Count 381, Mean Platelet Volume 10.1, Immature Granulocyte % (Auto) 1, Neutrophils (%) (Auto) 88H, Lymphocytes (%) (Auto) 6L, Monocytes (%) (Auto) 5, Eosinophils (%) (Auto) 1, Basophils (%) (Auto) 0, Neutrophils # (Auto) 7.5, Lymphocytes # (Auto) 0.5L, Monocytes # (Auto) 0.4, Eosinophils # (Auto) 0.1, Basophils # (Auto) 0.0, Immature Granulocyte # (Auto) 0.1, Sodium Level 138, Potassium Level 2.8L, Chloride Level 108H, Carbon Dioxide Level 17L, Anion Gap 13, Blood Urea Nitrogen 13, Creatinine 0.78, Estimat Glomerular Filtration Rate 86, BUN/Creatinine Ratio 17, Glucose Level 85, Calcium Level 7.6L, Corrected Calcium 8.8, Magnesium Level 1.9, Total Bilirubin 0.3, Aspartate Amino Transf (AST/SGOT) 16, Alanine Aminotransferase (ALT/SGPT) 8, Alkaline Phosphatase 70, Total Protein 4.8L, Albumin 2.5L Microbiology 10/13/21 Gram Stain - Final, Resulted 10/13/21 Wound Culture - Preliminary, Resulted Culture In Progress 10/13/21 Urine Culture - Preliminary, Resulted Assessment and Plan Assessment Awaiting surgery this afternoon Problem List Unchanged Plan Surgery this afternoon at 1 PM. Plan femoral neck system for fixation. Patient again understands the procedure risk complications would like to proceed Final Diagonsis Impacted subcapital fracture right hip Level of the visit: Level 3 Focused Exam Lactate Level 10/13/21 11:40: Lactic Acid Level 0.88 Clinical Quality Measures DVT/VTE Risk/Contraindication: Contraindications-Pharm: Other *list below* Other: operation MORENO PARMAR MD Oct 14, 2021 11:28
[2021-10-14] MEDS ORDERED: ceFAZolin INJECTION 1,000 MG ONE ×2 (12:39→13:07)
[2021-10-14] MEDS ORDERED: BUPIVACAINE 0.5% 30 ML (SENSORCAINE) VIAL ONE (12:40)
[2021-10-14] MEDS ORDERED: fentaNYL INJ 100 MCG/2 ML AMP ONE (12:40)
[2021-10-14] MEDS ORDERED: KETAMINE 50 MG/5 ML SYRINGE ONE (12:41)
[2021-10-14] MEDS ORDERED: MIDAZOLAM 2 MG/2 ML (VERSED) VIAL ONE ×2 (12:41→13:29)
[2021-10-14] MEDS: LACTATED RINGERS 1,000 ML IV PRN ×2 (12:53→13:33)
[2021-10-14] MEDS ORDERED: proPOfol 200 MG/20 ML (DIPRIVAN) VIAL IV ONE (14:02)
--- NOTE | 2021-10-14 14:26 | Diagnostic Imaging Report ---
INDICATION: Right hip fracture. FINDINGS: Intraoperative views were obtained with the portable intensifier in Surgery during ORIF of the right femoral neck fracture. Two views were obtained with 56.2 seconds of fluoroscopy time used. Hardware is seen in the femoral neck and subtrochanteric region with anatomic alignment. IMPRESSION: Anatomic alignment status post ORIF of right femoral neck fracture. Dictated by: Dictated on workstation # [id number]
--- NOTE | 2021-10-14 14:34 | Operative Report - Ortho ---
Operative Report Surgeon (s)/Retail Wireless Associate (s) Surgeon MORENO PARMAR MD Retail Wireless Associate n/a Pre-Operative Diagnosis Impacted subcapital fracture right hip Post-Operative Diagnosis same Operative Report Date of Procedure: Oct 14, 2021 Name of Procedure Performed: Synthes femoral neck fixation device for fixation of impacted subcapital fracture right hip 1 hole sideplate, 80 mm bolt, 80 mm antirotation screw Description & Findings The patient was seen in her hospital room and the right leg was marked. She was then taken to the OR. A spinal was inserted with her in the lateral decubitus position in her hospital bed. She was then transferred to the fracture table. The left leg was placed in the well-leg park and the right leg was placed in a traction boot with no traction. The leg was internally rotated and left in neutral position with again no traction. Images used to visualize the fracture and the fracture was impacted in slight valgus with slight posterior displacement of the femoral head.This is felt to be acceptable. Right hip was then prepped and draped in the usual sterile manner. Percutaneously a pin was placed through the anterior superior aspect of the neck and head to provide derotation. Next an incision was made over the lateral aspect of the hip. This is taken down through subtenons tissue. Then through the iliotibial band and vastus lateralis. The guide was then inserted and a guidewire was placed into the central aspect of the head and neck on the AP view and on the lateral view central aspect of the head again with the head just slightly posteriorly displ aced. Guidewire was measured at 87 mm. 80 mV millimeter bolt was selected. The reamer was then set at 80 and reamed over the guidewire. The bolt with the guide was then inserted and found to fit well in good position. Next the drill was placed through the guide for the antirotation screw again set at 80 and then an 80 mm screw was inserted. Next the guide was inserted for the sideplate. Guidewire was removed and then the proximal femur was drilled through the sideplate through both cortices. This was measured and a 44 mm screw was selected and inserted. This point the guides were removed. Final x-rays were obtained which showed good position of the bolt derotation screw in the bicortical screw through the 1 hole plate. At this point the wound was irrigated with normal saline. The vastus lateralis and iliotibial band were closed with 0 Vicryl. Subtenons tissue with 2-0 Vicryl and the skin was closed with skin clips. The initial guidewire was also removed during the procedure. The wound was dressed with antibiotic ointment Adaptic 4 x 4's ABD which were taped in position. Patient was given 2 g Ancef IV preoperatively. Patient was then transferred to recovery room in good condition she tolerated seizure well. In recovery room Dr. Interiano inserted a fascial iliac as block. Estimated blood loss 50 mL Replacementnone Drainsnone Complicationsnone n/a Anesthesia Type Spinal Estimated Blood Loss 50 mL Packing none. Specimen(s) collected/removed None MORENO PARMAR MD Oct 14, 2021 14:34
[2021-10-14] MEDS ORDERED: fentaNYL INJ 100 MCG/2 ML AMP IVP PRN (14:45)
[2021-10-14] MEDS: cefTRIAXone 1 GM PRE-MIX 50 ML IV SCH (16:49)
[2021-10-14] MEDS: AZITHROMYCIN INJECTION 500 MG in NS (IVPB) 250 ML IV SCH (17:38)
[2021-10-14] MEDS ORDERED: NS (IVPB) 250 ML IV PRN (19:30)
[2021-10-14] MEDS: traZODone 150 MG (DESYREL) TABLET PO SCH (20:25)
[2021-10-14] MEDS: ceFAZolin INJECTION 1,000 MG in NS (IVPB) 50 ML IV SCH (20:25)
[2021-10-14] MEDS ORDERED: hydrOXYzine (VISTARIL/ATARAX) 25 MG capsule/tablet PO PRN (21:30)
[2021-10-15] VITALS (7 sets, daily range): BP systolic 87–114; BP diastolic 54–71
[2021-10-15] MEDS: RT-ALBUTEROL HFA 8.5 GM INHALER IH SCH ×4 (03:30→21:29)
[2021-10-15] MEDS: ENOXAPARIN 40 MG/0.4 ML (LOVENOX) SYR SC SCH (06:01)
[2021-10-15] MEDS: ceFAZolin INJECTION 1,000 MG in NS (IVPB) 50 ML IV SCH ×2 (06:02→13:10)
[2021-10-15 06:27] LABS: BASOPHILS % (AUTO) 0 % (0-10); EOSINOPHILS % (AUTO) 0 % (0-10); HEMATOCRIT 25 % (35-52); HEMOGLOBIN 8.1 g/dL (11.5-16.0); LYMPHOCYTES # (AUTO) 0.6 10^3/uL (1.0-4.0); LYMPHOCYTES % (AUTO) 5 % (12-44); MEAN CORPUSCULAR HEMOGLOBIN 26 pg (25-34); MEAN CORPUSCULAR HGB CONC 32 g/dL (32-36); MEAN CORPUSCULAR VOLUME 81 fL (80-99); MEAN PLATELET VOLUME 9.9 fL (9.0-12.2); MONOCYTES # (AUTO) 0.5 10^3/uL (0.0-1.0); MONOCYTES % (AUTO) 5 % (0-12); NEUTROPHILS # (AUTO) 10.3 10^3/uL (1.8-7.8); NEUTROPHILS % (AUTO) 90 % (42-75); PLATELET COUNT 389 10^3/uL (130-400); WHITE BLOOD COUNT 11.5 10^3/uL (4.3-11.0)
[2021-10-15 06:49] LABS: ALBUMIN 2.3 GM/DL (3.2-4.5); BILIRUBIN,TOTAL 0.2 MG/DL (0.1-1.0); CALCIUM 7.4 MG/DL (8.5-10.1); CREATININE SERUM 0.79 MG/DL (0.60-1.30); POTASSIUM 3.3 MMOL/L (3.6-5.0); TOTAL PROTEIN 4.4 GM/DL (6.4-8.2)
[2021-10-15] MEDS: DOCUSATE SODIUM 100 MG (COLACE) CAP PO SCH ×2 (08:30→20:48)
[2021-10-15] MEDS: SERTRALINE 100 MG (ZOLOFT) TAB PO SCH (08:30)
[2021-10-15] MEDS: NICOTINE 14 MG (NICODERM) PATCH TD SCH (08:30)
[2021-10-15] MEDS: SENNOSIDES 8.6 MG (SENOKOT) TAB PO SCH ×2 (08:30→20:48)
--- NOTE | 2021-10-15 08:52 | Progress Note - Ortho ---
Progress Note Subjective Date of Exam 10/15/21 Chief Complaint POD#1 Open reduction internal fixation impacted subcapital fracture right hip HPI/Events since last exam Mrs. Billy is 1 day postop open reduction internal fixation impacted subcapital fracture right hip with the Synthes femoral neck system device. She is complaining of right hip pain. No other issues. Review of Systems Reviewed and no additions or changes Allergies: Coded Allergies: No Known Drug Allergies (Unverified , 04/16/20) Home Meds Reported Medications Sertraline HCl (Sertraline HCl) 100 Mg Tablet, 200 MG PO DAILY, TAB TAKES 2 (100MG) TABS 10/14/21 Hydroxyzine HCl (Hydroxyzine HCl) 25 Mg Tablet, 25 MG PO QID PRN for ANXIETY, TAB 10/14/21 Trazodone HCl (Trazodone HCl) 150 Mg Tablet, 150 MG PO HS, TAB 10/13/21 Discontinued Scripts Sucralfate (Carafate) 1 Gm Tablet, 1 GM PO QID, #120 TAB Crush or dissolve and mix with 5-10 ML water to make a slurry. Take 30 minutes before meals and bedtime Prov:FLOR TRUJILLO MD 04/16/20 Omeprazole (Omeprazole) 20 Mg Capsule.dr, 20 MG PO BID, #60 CAP 2 Refills Prov:FLOR TRUJILLO MD 04/16/20 Objective Exam Constitutional: [] HEENT: [] Neck: [] Cardiovascular: [] Respiratory: [] Gastrointestinal: [] Genitourinary: [] Skin: [] Back/Spine: [] Extremities: Mild pain with gentle range of motion and palpation right hip and thigh. Dressing intact. No calf tenderness negative Homans. Able to dorsiflex and plantarflex foot and ankle without weakness or pain. Normal sensation of the foot and toes with good cap refill. Equal pulses. Good position of the leg compared to the left[] Neurologic: [] Psychiatric: [] Hematologic/lymphatic/immunologic: [] Vital Signs Vital Signs Date Time Temp Pulse Resp B/P (MAP) Pulse Ox O2 Delivery O2 Flow Rate FiO2 10/15/21 08:07 96 Room Air 10/15/21 07:45 35.7 73 18 100/58 (72) 94 Room Air 10/15/21 03:30 95 Room Air 10/15/21 03:27 36.4 77 20 114/71 (85) 95 Room Air 10/14/21 23:24 36.0 80 20 106/66 (79) 94 Room Air 10/14/21 21:11 96 Room Air 10/14/21 20:45 99/55 (70) 10/14/21 20:00 97 Room Air 10/14/21 19:43 36.2 81 20 84/55 (65) 98 Room Air 10/14/21 16:00 36.0 87 20 88/57 (67) 96 Room Air 10/14/21 15:00 Room Air 10/14/21 15:00 36.4 16 90/54 (66) 95 Room Air 10/14/21 14:50 16 97/56 (70) 99 Room Air 10/14/21 14:40 16 98/56 (70) 100 OxyMask 2 10/14/21 14:40 Room Air 10/14/21 14:30 18 105/66 (79) 100 OxyMask 2 10/14/21 14:25 OxyMask 3 10/14/21 14:20 20 93/63 (73) 100 OxyMask 3 10/14/21 14:10 OxyMask 6 10/14/21 14:10 36.4 20 106/97 (100) 100 OxyMask 6 10/14/21 11:17 36.8 76 20 98/50 (66) 96 Room Air I & O 10/15/21 07:00 Intake Total 4500 ml Output Total 1080 ml Balance 3420 ml Lab Results Laboratory Tests 10/15/21 06:15: White Blood Count 11.5H, Red Blood Count 3.13L, Hemoglobin 8.1L, Hematocrit 25L, Mean Corpuscular Volume 81, Mean Corpuscular Hemoglobin 26, Mean Corpuscular Hemoglobin Concent 32, Red Cell Distribution Width 15.2H, Platelet Count 389, Mean Platelet Volume 9.9, Immature Granulocyte % (Auto) 0, Neutrophils (%) (Auto) 90H, Lymphocytes (%) (Auto) 5L, Monocytes (%) (Auto) 5, Eosinophils (%) (Auto) 0, Basophils (%) (Auto) 0, Neutrophils # (Auto) 10.3H, Lymphocytes # (Auto) 0.6L, Monocytes # (Auto) 0.5, Eosinophils # (Auto) 0.0, Basophils # (Auto) 0.0, Immature Granulocyte # (Auto) 0.1, Sodium Level 133L, Potassium Level 3.3L, Chloride Level 106, Carbon Dioxide Level 18L, Anion Gap 9, Blood Urea Nitrogen 8, Creatinine 0.79, Estimat Glomerular Filtration Rate 85, BUN/Creatinine Ratio 10, Glucose Level 88, Calcium Level 7.4L, Corrected Calcium 8.8, Total Bilirubin 0.2, Aspartate Amino Transf (AST/SGOT) 19, Alanine Aminotransferase (ALT/SGPT) 7, Alkaline Phosphatase 73, Total Protein 4.4L, Albumin 2.3L Microbiology 10/14/21 MRSA Screen - Final, Complete MRSA not isolated 10/13/21 Gram Stain - Final, Resulted 10/13/21 Wound Culture - Preliminary, Resulted Escherichia coli 10/13/21 Urine Culture - Preliminary, Resulted Strep anginosus Escherichia coli 10/13/21 Blood Culture - Preliminary, Resulted No growth Assessment and Plan Assessment Doing well first day postop. Hemoglobin 8.1 Problem List Unchanged Plan Out of bed to chair as tolerated. Physical therapy walker ambulation partial weightbearing on the right Final Diagonsis Impacted subcapital fracture right hip status post open reduction internal fixation Level of the visit: Level 3 Focused Exam Lactate Level 10/13/21 11:40: Lactic Acid Level 0.88 Clinical Quality Measures DVT/VTE Risk/Contraindication: Contraindications-Pharm: Other *list below* Other: operation MORENO PARMAR MD Oct 15, 2021 08:51
--- NOTE | 2021-10-15 10:48 | Occupational Therapy Eval ---
OT Evaluation-General/PLF Medical Diagnosis Admission Date Oct 13, 2021 at 13:42 Medical Diagnosis: R hip fx Onset Date: Oct 14, 2021 Therapy Diagnosis Therapy Diagnosis: decreased ADL status Precautions Precautions/Isolations: Airborne Isolation, Contact Isolation, Droplet Isolation, Fall Prevention Weight Bear Status Weight Bearing Restriction: Partial Weight Bearing Location Restriction: R LE Referral Physician: Steve Russo Reason: Evaluation/Treatment Medical History Additional Medical History COPD, Anxiety, Depression, GERD and Insomnia Current History ED c/o R hip pain post fall 10/11/21. Neighbor brought pt to ED 10/13/21, xrays revealed impacted subcapital femoral neck fx. s/p surgery on 10/15/21 Social History Home: Apartment Current Living Status: Alone Entry Into Home: Level Entry ADL-Prior Level of Function SCALE: Activities may be completed with or without assistive devices. 5-[id number] completes the activity by him/herself with no assistance from a helper. 5-Set-up or Clean-up Assistance-helper sets up or cleans up; patient completes activity. Santa assists only prior to or following the activity. 4-Supervision or Touching Assistance-helper provides verbal cues and/or touching/steadying and/or contact guard assistance as patient completes activity. Assistance may be provided throughout the activity or intermittently. 3-Partial/Moderate Assistance-helper does LESS THAN HALF the effort. Santa lifts, holds or supports trunk or limbs, but provides less than half the effort. 2-Substantial/Maximal Assistance-helper does MORE THAN HALF the effort. Santa l ifts or holds trunk or limbs and provides more than half the effort. 9-Nnnvlksdy-fzpwil does ALL the effort. Patient does none of the effort to complete the activity. Or, the assistance of 2 or more helpers is required for the patient to complete the activity. If activity was not attempted, code reason: 7-Patient Refused. 9-Not Applicable-not attempted and the patient did not perform the activity before the current illness, exacerbation or injury. 10-Not Attempted due to Environmental Limitations-(lack of equipment, weather restraints, etc.). 88-Not Attempted due to Medical Conditions or Safety Concerns. ADL PLOF Comments Pt reports IND with ADLs at PLOF Self Care: Independent Functional Cognition: Independent OT Current Status Subjective Pt up in recliner, agreeable to OT evaluation. Pt's phone rang in the middle of tx, pt answered and told caller she had surgery this morning (surgery was yesterday). OT had to redirect pt to evaluation, pt going to return call later. Mental Status/Objective Patient Orientation: Person, Confused, Place, Situation Attachments: Rodriguez Catheter, IV Current Upper Extremity ROM WFL. BUE shoulder flexion to approx 150 degrees Upper Extremity Coordination WFL Upper Extremity Strength grossly 3+/5 ADL-Treatment Eating (QC): 6 (Pt IND with breakfast.) Oral Hygiene (QC): 5 (per clinical judgment.) Upper Body Dressing (QC): 5 (Per clinical judgment.) Lower Body Dressing (QC): 2 (Per clinical judgment, pt able to thread LLE, assist with RLE and pant hike) On/Off Footwear (QC): 3 (Mod A. Pt able to doff/don L gripper sock, assist R) Toileting Hygiene (QC): 1 (catheter) Other Treatments Pt in recliner, agreeable to OT tx. OT educated pt on purpose and benefit of OT, she verbalized understanding. Pt's phone began to ring, pt answered phone and began talking to the caller. Pt told the caller she had surgery this morning, although pt had surgery yesterday. OT had to redirect pt from her phone call to OT tx, pt states she would return call later. In order to increase BUE strength, activity tolerance, and pulmonary function, pt completed x10 reps BUE AROM shoulder flexion and front punch. O2 saturation dropped to low-mid 80%'s with activity, requiring cues for pursed lip breathing. O2 saturation returned to 90%'s after a few seconds. Pt attempted to complete footwear, only able to complete LLE. Pt requests to continue her breakfast. Post tx, pt in recliner, call light in reach and all needs met. Education OT Patient Education: Correct positioning, Energy conservation, Modified ADL techniques, Progress toward Goal/Update tx plan, Purpose of tx/functional activities, Rehab process Teaching Recipient: Patient Teaching Methods: Discussion Response to Teaching: Verbalize Understanding OT Cloth Shader Goals Intermediate Goals Time Frame: Nov 07, 2021 Eating (QC): 6 Oral Hygiene (QC): 5 Toileting Hygiene (QC): 4 Shower/Bathe Self (QC): 4 Upper Body Dressing (QC): 5 Lower Body Dressing (QC): 4 On/Off Footwear (QC): 3 Additional Goals: 1-Demonstrate ADL Tasks, 2-Verbalize Understanding, 3- ImproveStrength/Apple 1=Demonstrate adherence to instructed precautions during ADL tasks. 2=Patient will verbalize/demonstrate understanding of assistive devices/modifications for ADL. 3=Patient will improve strength/tolerance for activity to enable patient to perform ADL's. OT Education/Plan Problem List/Assessment Assessment: Decreased Activ Tolerance, Decreased UE Strength, Impaired Funct Balance, Impaired I ADL's, Impaired Self-Care Skills Discharge Recommendations Plan/Recommendations: Continue POC Treatment Plan/Plan of Care Patient would benefit from OT for education, treatment and training to promote independence in ADL's, mobility, safety and/or upper extremity function for ADL's. Plan of Care: ADL Retraining, Functional Mobility, UE Funct Exercise/Act Treatment Duration: Nov 07, 2021 Frequency: 3 times per week (3-5 times per week) Estimated Hrs Per Day: .25 hour per day Rehab Potential: Fair Time/GCodes Start Time: 10:06 Stop Time: 10:20 Total Time Billed (hr/min): 14 Billed Treatment Time 1, JOSÉ MIGUEL COBOS OT Oct 15, 2021 10:48
[2021-10-15] MEDS ORDERED: POTASSIUM CL 10MEQ/50ML IVPB 50 ML IV ONE (11:24)
[2021-10-15] MEDS: POTASSIUM CL 10MEQ/50ML IVPB 50 ML IV SCH ×4 (11:26→17:33)
--- NOTE | 2021-10-15 12:23 | Anesthesia-Regional Post-Op ---
Regional Patient Condition Mental Status: Alert, Oriented x3 Circulation: Same as Pre-Op Headache: Absent Sensation: Full Recovery Motor Block: Absent Post Op Complications Complications None Follow Up Care/Instructions Patient Instructions None needed. Anesthesia/Patient Condition Patient is doing well, no complaints, stable vital signs, no apparent adverse anesthesia problems. KATHLEEN DEVINE DO Oct 15, 2021 12:22
--- NOTE | 2021-10-15 12:23 | Progress Note - Hospitalist ---
PITA HOLLIS 10/15/21 1223: Subjective HPI/CC On Admission Date Seen by Provider: Oct 15, 2021 Time Seen by Provider: 10:00 Chief complaint: Right hip fracture with Covid History present illness: This is a 60-year-old white female who presented to the ER after laying on the couch for 2 days due to fatigue weakness and cough who apparently had a fall landing on her right side and having pain but could not get up to assess her issue. She came to the ER and she was found to have a right hip fracture. She is currently on room air. She was Covid positive swab. Subjective/Events-last exam Patient resting comfortably in bed this morning preparing to eat breakfast. She endorses minor pain in her right hip following surgery. She endorses a minor cough as well. She is still on room air at this time. She has not passed flatus nor had a bowel movement. She has no other complaints. She denies chest pain, shortness of breath, nausea, vomiting, diarrhea, and abdominal pain. Review of Systems General: No Chills, No Night Sweats HEENT: No Head Aches, No Visual Changes, No Eye Pain Pulmonary: No Dyspnea; Cough (mild) Cardiovascular: No: Chest Pain, Palpitations, Orthopnea Gastrointestinal: No: Nausea, Vomiting, Abdominal Pain, Diarrhea, Constipation Genitourinary: No Dysuria, No Frequency Musculoskeletal: No: leg pain, foot pain Neurological: No: Weakness, Numbness Focused Exam Sepsis Stage: Ruled Out Reason for ruling out sepsis: Did not meet SIRS criteria Lactate Level 10/13/21 11:40: Lactic Acid Level 0.88 Respiratory: Chest Non Tender, Lungs Clear, Normal Breath Sounds, No Accessory Muscle Use, No Respiratory Distress Cardiovascular: Regular Rate, Rhythm, No Edema, No Gallop, No JVD, No Murmur, Normal Peripheral Pulses Capillary Refill: Less Than 3 Seconds Skin: normal color, warm/dry Objective Exam Vital Signs Vital Signs Date Time Temp Pulse Resp B/P (MAP) Pulse Ox O2 Delivery O2 Flow Rate FiO2 10/15/21 11:39 35.9 82 18 94/58 (70) 96 Room Air 10/14/21 14:40 2 Capillary Refill : General Appearance: No Apparent Distress, Thin HEENT: PERRL/EOMI, Pharynx Normal, Moist Mucous Membranes Neck: Full Range of Motion, Normal Inspection, Non Tender, Supple Respiratory: Chest Non Tender, Lungs Clear, Normal Breath Sounds, No Accessory Muscle Use, No Respiratory Distress Cardiovascular: Regular Rate, Rhythm, No Edema, No Gallop, No JVD, No Murmur, Normal Peripheral Pulses Gastrointestinal: Normal Bowel Sounds, No Organomegaly, Non Tender, Soft Rectal: Deferred Back: Normal Inspection Extremity: Normal Capillary Refill, Normal Inspection, Normal Range of Motion, Non Tender, No Calf Tenderness Neurologic/Psychiatric: Alert, Oriented x3, No Motor/Sensory Deficits, Normal Mood/Affect, vacuum truck driver II-XII Norm as Tested Skin: Normal Color, Warm/Dry Lymphatic: No Adenopathy Results/Procedures Lab Laboratory Tests 10/15/21 06:15 Patient resulted labs reviewed. Imaging: Reviewed Imaging Report Assessment/Plan Assessment and Plan Assess & Plan/Chief Complaint Assessment: Right Subcapital Femoral Neck Fracture s/p Fixation Fall From Standing COVID-19 Hx of COPD Anemia Hypokalemia Tobacco Use Insomnia Labial Wound/Abscess UTI Plan: Surgery completed yesterday - bowel regimen/pain regimen/PT/OT Maintaining O2 saturations on room air COVID protocol Ceftriaxone & Azithromycin D#3 Labial wound culture growing E. coli - covered with above Urine culture growing Strep and E. coli - covered with above K+ replacement IV NS @ 80mL/hr Diagnosis/Problems Diagnosis/Problems (1) Closed right hip fracture Status: Acute Qualifiers: Qualified Codes: S72.001A - Fracture of unspecified part of neck of right femur, initial encounter for closed fracture (2) COVID-19 virus infection Status: Acute (3) Fall from standing Status: Acute Qualifiers: Qualified Codes: W19.XXXA - Unspecified fall, initial encounter (4) Hypokalemia Status: Acute (5) Anemia (6) Open wound of labium majus (7) Urinary tract infection (8) Tobacco use Status: Chronic (9) Insomnia Status: Chronic (10) Dehydration Status: Resolved Resolution Date/Time: 10/14/21 @ 00:00 Clinical Quality Measures DVT/VTE Risk/Contraindication: Contraindications-Pharm: Other *list below* Other: operation ADAMSENEDELIA RODRIGESI DO 10/16/21 0524: Subjective Subjective/Events-last exam Pt is doing well Potassium was 3.3 will give 40 milliequivalents IV Desaturation noted during activity Checked meds and labs Review of Systems General: Fatigue, Malaise Musculoskeletal: leg pain Objective Exam General Appearance: No Apparent Distress, WD/WN, Chronically ill, Thin Respiratory: Lungs Clear, Normal Breath Sounds Cardiovascular: Regular Rate, Rhythm Neurologic/Psychiatric: Alert, Oriented x3 Assessment/Plan Assessment and Plan Assess & Plan/Chief Complaint Pain control Supportive care Supervisory-Addendum Brief Verification & Attestation Participated in pt care: history, MDM, physical Personally performed: exam, history, MDM, supervision of care Care discussed with: Medical Student Procedures: n/a Results interpretation: Verified all documentation Verification and Attestation of Medical Student E/M Service A medical student performed and documented this service in my presence. I reviewed and verified all information documented by the medical student and made modifications to such information, when appropriate. I personally performed the physical exam and medical decision making. Sara Adams, Oct 16, 2021,05:24 PITA HOLLIS Oct 15, 2021 12:23 SARA ADAMS DO Oct 16, 2021 05:24
--- NOTE | 2021-10-15 12:36 | Physical Therapy Evaluation ---
PT Evaluation-General Medical Diagnosis Admission Date Oct 13, 2021 at 13:42 Medical Diagnosis: Right hip fracture Onset Date: Oct 11, 2021 Therapy Diagnosis Therapy Diagnosis: Gait Deficit, strength deficit Precautions Precautions/Isolations: Airborne Isolation, Contact Isolation, Droplet Isolation, Fall Prevention Weight Bear Status Right Lower Extremity: Right Partial Weight Bearing Left Lower Extremity: Left Full Weight Bearing Referral Physician: Steve Reason for Referral: Evaluation/Treatment Social History Home: Apartment Current Living Status: Alone Entry Into Home: Level Entry Prior Prior Level of Function SCALE: Activities may be completed with or without assistive devices. 4-Qhmsshsqpz-tzkykon completes the activity by him/herself with no assistance from a helper. 5-Set-up or Clean-up Assistance-helper sets up or cleans up; patient completes activity. [place] assists only prior to or following the activity. 4-Supervision or Touching Assistance-helper provides verbal cues and/or touchi ng/steadying and/or contact guard assistance as patient completes activity. Assistance may be provided throughout the activity or intermittently. 3-Partial/Moderate Assistance-helper does LESS THAN HALF the effort. [place] lifts, holds or supports trunk or limbs, but provides less than half the effort. 2-Substantial/Maximal Assistance-helper does MORE THAN HALF the effort. [place] lifts or holds trunk or limbs and provides more than half the effort. 9-Evkmuwnea-aexqeo does ALL the effort. Patient does none of the effort to complete the activity. Or, the assistance of 2 or more helpers is required for the patient to complete the activity. If activity was not attempted, code reason: 7-Patient Refused. 9-Not Applicable-not attempted and the patient did not perform the activity before the current illness, exacerbation or injury. 10-Not Attempted due to Environmental Limitations-(lack of equipment, weather restraints, etc.). 88-Not Attempted due to Medical Conditions or Safety Concerns. Bed Mobility: 6 Transfers (B,C,W/C): 6 Gait: 6 Stairs: 6 Indoor Mobility (Ambulation): Independent Prior Devices Use: None PT Evaluation-Current Subjective Patient lying supine in bed upon PT arrival, agreeable to treatment but reports "I cant' walk to the chair." Rates pain at 9/10 in right hip. Nurse notified. Objective Patient Orientation: Person, Place, Time, Situation Attachments: Rodriguez Catheter, IV ROM/Strength ROM Lower Extremities Right hip limited all planes. Right knee/ankle and Left LE all WFLs Strength Lower Extremities Right hip N/A, Right knee and ankle 3+/5; Left LE 3+/5 all planes Sensory Vision: Functional Hearing: Functional Sensation Right Lower Extremit: Intact Sensation Left Lower Extremity: Intact Transfers Roll Left to Right (QC): 2 Sit to Lying (QC): 2 Lying to Sitting/Side of Bed(Q: 2 Sit to Stand (QC): 3 Chair/Tvj-fk-Ivuoc Xfer(QC): 3 Gait Does the Patient Walk?: No and Walking Goal IS indicated Mode of Locomotion: Both Anticipated Mode of Locomotion: Both Balance Sitting Static: Fair Sitting Dynamic: Fair Standing Static: Poor Standing Dynamic: Poor Assessment/Needs Patient tolerated treatment fair. Reports significant increase in pain of the right LE with movement. Patient requires max A for all bed mobility, mod A for sit to stand and bed to chair. Patient was educated of PWB right LE prior to any movement and was able to maintain well with transfer to the chair. Patient fatigues quickly though and is unable to perform much else in the way of activity. Patient in chair post treatment with all needs met, nursing notified, call light in hand. Rehab Potential: Fair Equipment Needs FWW PT Short Term Goals Short Term Goals Time Frame: Oct 25, 2021 Roll Left & Right: 4 Sit to lyin Lying to sitting on side of be: 4 Sit to stand: 4 Chair/gwc-jr-gbqzy transfer: 4 Toilet transfer: 4 Walk 10 feet: 4 Walk 50 feet with two turns: 3 Walk 150 feet: 3 PT Alf Goals Alf Goals PT Communication Coordinator Goals Time Frame: Nov 07, 2021 Roll Left & Right (QC): 6 Sit to Lying (QC): 6 Lying-Sitting on Side/Bed(QC): 6 Sit to Stand (QC): 6 Chair/Jpx-bb-Uiapc Xfer(QC): 6 Toilet Transfer (QC): 6 Car Transfer (QC): 6 Does the Patient Walk: Yes Walk 10 feet (QC): 5 Walk 50ft with 2 Turns (QC): 4 Walk 150 ft (QC): 4 PT Plan Problem List Problem List: Activity Tolerance, Functional Strength, Safety, Balance, Gait, Transfer, Bed Mobility, ROM Treatment/Plan Treatment Plan: Continue Plan of Care Treatment Plan: Bed Mobility, Education, Functional Activity Apple, Functional Strength, Group Therapy, Gait, Safety, Therapeutic Exercise, Transfers Treatment Duration: Nov 27, 2021 Frequency: 11 times per week Estimated Hrs Per Day: .25 hour per day Patient and/or Family Agrees t: Yes Safety Risks/Education Patient Education: Gait Training, Transfer Techniques, Reviewed Precautions, Safety Issues Teaching Recipient: Patient Teaching Methods: Demonstration, Discussion Response to Teaching: Verbalize Understanding, Return Demonstration Discharge Recommendations Target Placement Post acute placement recommended. Time/GCodes Time In: 945 Time Out: 1008 Total Billed Treatment Time: 23 Total Billed Treatment Visit, CASPER CHUA JOHN A PT Oct 15, 2021 12:36
--- NOTE | 2021-10-15 15:45 | Physical Therapy Progress Note ---
Therapy Progress Note REHAB/PRE VOCATIONAL COUNSELOR gowns up per COVID protocol. Pt declines stating, "I just can't do anymore today". REHAB/PRE VOCATIONAL COUNSELOR encourages pt advising benefits of PT. Pt still declines. PT will check on pt tomorrow to resume therapy. 1 visit, no tx rendered FELI WERNER PTA Oct 15, 2021 15:45
[2021-10-15] MEDS: cefTRIAXone 1 GM PRE-MIX 50 ML IV SCH (17:33)
[2021-10-15] MEDS: AZITHROMYCIN INJECTION 500 MG in NS (IVPB) 250 ML IV SCH (18:13)
[2021-10-15] MEDS: traZODone 150 MG (DESYREL) TABLET PO SCH (20:48)
[2021-10-16] VITALS (7 sets, daily range): BP systolic 90–118; BP diastolic 53–60
[2021-10-16] MEDS: RT-ALBUTEROL HFA 8.5 GM INHALER IH SCH ×4 (02:43→19:01)
[2021-10-16 05:43] LABS: BASOPHILS % (AUTO) 0 % (0-10); EOSINOPHILS # (AUTO) 0.1 10^3/uL (0.0-0.3); EOSINOPHILS % (AUTO) 1 % (0-10); HEMATOCRIT 23 % (35-52); HEMOGLOBIN 7.4 g/dL (11.5-16.0); LYMPHOCYTES # (AUTO) 0.6 10^3/uL (1.0-4.0); LYMPHOCYTES % (AUTO) 6 % (12-44); MEAN CORPUSCULAR HEMOGLOBIN 26 pg (25-34); MEAN CORPUSCULAR HGB CONC 33 g/dL (32-36); MEAN CORPUSCULAR VOLUME 81 fL (80-99); MEAN PLATELET VOLUME 10.1 fL (9.0-12.2); MONOCYTES # (AUTO) 0.5 10^3/uL (0.0-1.0); MONOCYTES % (AUTO) 5 % (0-12); NEUTROPHILS # (AUTO) 8.4 10^3/uL (1.8-7.8); NEUTROPHILS % (AUTO) 87 % (42-75); PLATELET COUNT 413 10^3/uL (130-400); WHITE BLOOD COUNT 9.6 10^3/uL (4.3-11.0)
[2021-10-16] MEDS: ENOXAPARIN 40 MG/0.4 ML (LOVENOX) SYR SC SCH (05:46)
--- NOTE | 2021-10-16 05:50 | Progress Note - Hospitalist ---
Subjective HPI/CC On Admission Date Seen by Provider: Oct 16, 2021 Time Seen by Provider: 11:00 Chief complaint: Right hip fracture with Covid History present illness: This is a 60-year-old white female who presented to the ER after laying on the couch for 2 days due to fatigue weakness and cough who apparently had a fall landing on her right side and having pain but could not get up to assess her issue. She came to the ER and she was found to have a right hip fracture. She is currently on room air. She was Covid positive swab. Subjective/Events-last exam Pt is doing a lot better Seems to be improved Pain is improved Will discontinue catheter Will initiate Protonix and Carafate for heartburn IRF will be pursued Review of Systems General: Fatigue, Malaise Focused Exam Lactate Level Objective Exam Vital Signs Vital Signs Date Time Temp Pulse Resp B/P (MAP) Pulse Ox O2 Delivery O2 Flow Rate FiO2 10/16/21 23:38 36.1 72 18 104/56 (72) 94 Room Air 10/16/21 15:21 21 10/14/21 14:40 2 Capillary Refill : Less Than 3 Seconds General Appearance: No Apparent Distress, WD/WN, Chronically ill, Thin Respiratory: Lungs Clear, Normal Breath Sounds Cardiovascular: Regular Rate, Rhythm Neurologic/Psychiatric: Alert, Oriented x3 Results/Procedures Lab Patient resulted labs reviewed. Imaging: Reviewed Imaging Report Assessment/Plan Assessment and Plan Assess & Plan/Chief Complaint Assessment: Right Subcapital Femoral Neck Fracture s/p Fixation Fall From Standing COVID-19 Hx of COPD Anemia Hypokalemia Tobacco Use Insomnia Labial Wound/Abscess UTI Plan: Inpatient rehab eval PT and OT Antibiotics Clinical Quality Measures DVT/VTE Risk/Contraindication: Contraindications-Pharm: Other *list below* Other: operation APOORVA YOUNGBLOOD Oct 16, 2021 05:50
[2021-10-16 06:17] LABS: ALBUMIN 2.3 GM/DL (3.2-4.5)
[2021-10-16 06:18] LABS: POTASSIUM 3.5 MMOL/L (3.6-5.0)
[2021-10-16 06:19] LABS: CALCIUM 7.7 MG/DL (8.5-10.1)
[2021-10-16 06:20] LABS: TOTAL PROTEIN 4.3 GM/DL (6.4-8.2)
[2021-10-16 06:22] LABS: BILIRUBIN,TOTAL 0.2 MG/DL (0.1-1.0)
[2021-10-16 06:24] LABS: CREATININE SERUM 0.7 MG/DL (0.60-1.30)
[2021-10-16] MEDS: DOCUSATE SODIUM 100 MG (COLACE) CAP PO SCH ×2 (09:43→20:55)
[2021-10-16] MEDS: SENNOSIDES 8.6 MG (SENOKOT) TAB PO SCH ×2 (09:43→20:54)
[2021-10-16] MEDS: NICOTINE 14 MG (NICODERM) PATCH TD SCH (09:43)
[2021-10-16] MEDS: SERTRALINE 100 MG (ZOLOFT) TAB PO SCH (09:43)
[2021-10-16] MEDS ORDERED: IRON SUCROSE 200 MG/10 ML (VENOFER) VIAL IV NR (12:30)
[2021-10-16] MEDS ORDERED: CYANOCOBALAMIN INJ 1000 MCG/ML IM NR (12:30)
[2021-10-16] MEDS: PANTOPRAZOLE 40 MG (PROTONIX) TAB PO SCH (13:35)
--- NOTE | 2021-10-16 14:57 | Physical Therapy Daily Note ---
PT Daily Note-Current Subjective Patient lying in bed upon PT arrival, initially refuses treatment, however agrees when educated on possible risks of sedentary lifestyle. Rates right hip pain at 10/10 Mental Status Patient Orientation: Person, Place, Time, Situation Attachments: Rodriguez Catheter Transfers SCALE: Activities may be completed with or without assistive devices. 3-Nciivepqvn-okguhjc completes the activity by him/herself with no assistance from a helper. 5-Set-up or Clean-up Assistance-helper sets up or cleans up; patient completes activity. [place] assists only prior to or following the activity. 4-Supervision or Touching Assistance-helper provides verbal cues and/or touching/steadying and/or contact guard assistance as patient completes activity. Assistance may be provided throughout the activity or intermittently. 3-Partial/Moderate Assistance-helper does LESS THAN HALF the effort. [place] lifts, holds or supports trunk or limbs, but provides less than half the effort. 2-Substantial/Maximal Assistance-helper does MORE THAN HALF the effort. [place] lifts or holds trunk or limbs and provides more than half the effort. 3-Ljxhsgzjk-rdrkvg does ALL the effort. Patient does none of the effort to complete the activity. Or, the assistance of 2 or more helpers is required for the patient to complete the activity. If activity was not attempted, code reason: 7-Patient Refused. 9-Not Applicable-not attempted and the patient did not perform the activity before the current illness, exacerbation or injury. 10-Not Attempted due to Environmental Limitations-(lack of equipment, weather restraints, etc.). 88-Not Attempted due to Medical Conditions or Safety Concerns. Roll Left & Right (QC): 3 Sit to Lying (QC): 3 Lying to Sitting/Side of Bed(Q: 3 Sit to Stand (QC): 3 Chair/Ydn-hm-Ulmhp Xfer(QC): 3 Weight Bearing Right Lower Extremity: Right Partial Weight Bearing Left Lower Extremity: Left Full Weight Bearing Gait Training Does the Patient Walk?: No and Walking Goal IS indicated Distance: 3 Gait Assistive Device: FWW Exercises Supine Ex: Ankle pumps, Quad Set, Glut sets Supine Reps: 20 Seated Therapy Exercises: Long arc quads, Hamstring Curls Seated Reps: 20 Assessment Current Status: Fair Progress Patient tolerated treatment fair. Demonstrates increased ability to perform bed mobility and transfers. Demonstrates decreased pain or grimace with movement of the right LE. Patient performs all bed mobility and transfers with min A. Patient is able to take 3-4 steps with FWW, with min A for shuffling to the chair. Patient performs remaining LE therapeutic exercises in the chair. Patient in chair post treatment with all needs met, nursing notified, call light in hand. PT Short Term Goals Short Term Goals Time Frame: Oct 25, 2021 Roll Left & Right: 4 Sit to lyin Lying to sitting on side of be: 4 Sit to stand: 4 Chair/adb-vk-nsoxq transfer: 4 Toilet transfer: 4 Walk 10 feet: 4 Walk 50 feet with two turns: 3 Walk 150 feet: 3 PT Fci Goals Fci Goals PT Fci Goals Time Frame: Nov 07, 2021 Roll Left & Right (QC): 6 Sit to Lying (QC): 6 Lying-Sitting on Side/Bed(QC): 6 Sit to Stand (QC): 6 Chair/Kqk-xv-Jprtt Xfer(QC): 6 Toilet Transfer (QC): 6 Car Transfer (QC): 6 Does the Patient Walk: Yes Walk 10 feet (QC): 5 Walk 50ft with 2 Turns (QC): 4 Walk 150 ft (QC): 4 PT Plan Treatment/Plan Treatment Plan: Continue Plan of Care Treatment Plan: Bed Mobility, Education, Functional Activity Apple, Functional Strength, Group Therapy, Gait, Safety, Therapeutic Exercise, Transfers Treatment Duration: Nov 27, 2021 Frequency: 11 times per week Estimated Hrs Per Day: .25 hour per day Patient and/or Family Agrees t: Yes Safety Risks/Education Patient Education: Transfer Techniques Teaching Recipient: Patient Teaching Methods: Demonstration, Discussion Response to Teaching: Verbalize Understanding, Return Demonstration Time/GCodes Time In: 1041 Time Out: 1105 Total Billed Treatment Time: 24 Total Billed Treatment Visit, EX, TEJINDER VICENTE PT Oct 16, 2021 14:57
--- NOTE | 2021-10-16 15:05 | Physical Therapy Daily Note ---
PT Daily Note-Current Subjective Patient sitting in chair upon PT arrival, agreeable to treatment. Transfers SCALE: Activities may be completed with or without assistive devices. 1-Kutbsyccmf-pwitevg completes the activity by him/herself with no assistance from a helper. 5-Set-up or Clean-up Assistance-helper sets up or cleans up; patient completes activity. [place] assists only prior to or following the activity. 4-Supervision or Touching Assistance-helper provides verbal cues and/or touching/steadying and/or contact guard assistance as patient completes activi ty. Assistance may be provided throughout the activity or intermittently. 3-Partial/Moderate Assistance-helper does LESS THAN HALF the effort. [place] lifts, holds or supports trunk or limbs, but provides less than half the effort. 2-Substantial/Maximal Assistance-helper does MORE THAN HALF the effort. [place] lifts or holds trunk or limbs and provides more than half the effort. 8-Qlxasnowy-nguuif does ALL the effort. Patient does none of the effort to complete the activity. Or, the assistance of 2 or more helpers is required for the patient to complete the activity. If activity was not attempted, code reason: 7-Patient Refused. 9-Not Applicable-not attempted and the patient did not perform the activity before the current illness, exacerbation or injury. 10-Not Attempted due to Environmental Limitations-(lack of equipment, weather restraints, etc.). 88-Not Attempted due to Medical Conditions or Safety Concerns. Roll Left & Right (QC): 3 Sit to Lying (QC): 3 Sit to Stand (QC): 3 Chair/Pms-ig-Yyeqk Xfer(QC): 3 Weight Bearing Right Lower Extremity: Right Partial Weight Bearing Left Lower Extremity: Left Full Weight Bearing Assessment Current Status: Fair Progress Patient tolerated treatment fair. Reports soreness upon transferring back to bed, however pain does not seem to be as severe. Patient performs all bed mobility and transfers with min A. Patient in chair post treatment with all needs met, nursing notified, call light in hand. PT Short Term Goals Short Term Goals Time Frame: Oct 25, 2021 Roll Left & Right: 4 Sit to lyin Lying to sitting on side of be: 4 Sit to stand: 4 Chair/idf-rl-rfvci transfer: 4 Toilet transfer: 4 Walk 10 feet: 4 Walk 50 feet with two turns: 3 Walk 150 feet: 3 PT Inspector Filters Goals Inspector Filters Goals PT Inspector Filters Goals Time Frame: Nov 07, 2021 Roll Left & Right (QC): 6 Sit to Lying (QC): 6 Lying-Sitting on Side/Bed(QC): 6 Sit to Stand (QC): 6 Chair/Mij-ru-Vrgah Xfer(QC): 6 Toilet Transfer (QC): 6 Car Transfer (QC): 6 Does the Patient Walk: Yes Walk 10 feet (QC): 5 Walk 50ft with 2 Turns (QC): 4 Walk 150 ft (QC): 4 PT Plan Treatment/Plan Treatment Plan: Continue Plan of Care Treatment Plan: Bed Mobility, Education, Functional Activity Apple, Functional Strength, Group Therapy, Gait, Safety, Therapeutic Exercise, Transfers Treatment Duration: Nov 27, 2021 Frequency: 11 times per week Estimated Hrs Per Day: .25 hour per day Patient and/or Family Agrees t: Yes Safety Risks/Education Patient Education: Transfer Techniques Teaching Recipient: Patient Teaching Methods: Demonstration, Discussion Response to Teaching: Verbalize Understanding, Return Demonstration Time/GCodes Time In: 1331 Time Out: 1345 Total Billed Treatment Time: 14 Total Billed Treatment Visit, FA TEJINDER DAVIS PT Oct 16, 2021 15:05
[2021-10-16] MEDS: ONDANSETRON 4 MG/2 ML (SDV) Z0FRAN IV PRN (15:30)
[2021-10-16] MEDS: cefTRIAXone 1 GM PRE-MIX 50 ML IV SCH (16:10)
[2021-10-16] MEDS: AZITHROMYCIN INJECTION 500 MG in NS (IVPB) 250 ML IV SCH (16:10)
[2021-10-16] MEDS: SUCRALFATE 1 GM (CARAFATE) TAB PO SCH ×2 (16:10→20:54)
[2021-10-16] MEDS: traZODone 150 MG (DESYREL) TABLET PO SCH (20:54)
[2021-10-17 04:00] VITALS: BP 110/65
[2021-10-17] MEDS: ENOXAPARIN 40 MG/0.4 ML (LOVENOX) SYR SC SCH (05:22)
[2021-10-17] MEDS: SUCRALFATE 1 GM (CARAFATE) TAB PO SCH ×4 (05:22→20:53)
[2021-10-17 05:46] LABS: BASOPHILS % (AUTO) 0 % (0-10); EOSINOPHILS # (AUTO) 0.1 10^3/uL (0.0-0.3); EOSINOPHILS % (AUTO) 1 % (0-10); HEMATOCRIT 23 % (35-52); HEMOGLOBIN 7.3 g/dL (11.5-16.0); LYMPHOCYTES # (AUTO) 0.6 10^3/uL (1.0-4.0); LYMPHOCYTES % (AUTO) 7 % (12-44); MEAN CORPUSCULAR HEMOGLOBIN 26 pg (25-34); MEAN CORPUSCULAR HGB CONC 32 g/dL (32-36); MEAN CORPUSCULAR VOLUME 80 fL (80-99); MONOCYTES # (AUTO) 0.6 10^3/uL (0.0-1.0); MONOCYTES % (AUTO) 6 % (0-12); NEUTROPHILS # (AUTO) 8.1 10^3/uL (1.8-7.8); NEUTROPHILS % (AUTO) 85 % (42-75); PLATELET COUNT 393 10^3/uL (130-400); WHITE BLOOD COUNT 9.5 10^3/uL (4.3-11.0)
[2021-10-17 05:59] LABS: ALBUMIN 2.3 GM/DL (3.2-4.5); POTASSIUM 3.6 MMOL/L (3.6-5.0)
[2021-10-17 06:00] LABS: CALCIUM 7.7 MG/DL (8.5-10.1)
[2021-10-17 06:02] LABS: TOTAL PROTEIN 4.6 GM/DL (6.4-8.2)
[2021-10-17 06:03] LABS: BILIRUBIN,TOTAL 0.3 MG/DL (0.1-1.0)
[2021-10-17 06:05] LABS: CREATININE SERUM 0.68 MG/DL (0.60-1.30)
--- NOTE | 2021-10-17 06:05 | Progress Note - Hospitalist ---
Subjective HPI/CC On Admission Date Seen by Provider: Oct 17, 2021 Time Seen by Provider: 12:00 Chief complaint: Right hip fracture with Covid History present illness: This is a 60-year-old white female who presented to the ER after laying on the couch for 2 days due to fatigue weakness and cough who apparently had a fall landing on her right side and having pain but could not get up to assess her issue. She came to the ER and she was found to have a right hip fracture. She is currently on room air. She was Covid positive swab. Subjective/Events-last exam Pt is doing about the same No bowel movement yet so we will initiate Milk of Magnesia, Senna, and Lactulose in a suppository Needs Oxycodone instead of Hydrocodone for pain so I did write that In-patient rehab eval Review of Systems General: Fatigue, Malaise Gastrointestinal: Constipation Musculoskeletal: leg pain Objective Exam Vital Signs Vital Signs Date Time Temp Pulse Resp B/P (MAP) Pulse Ox O2 Delivery O2 Flow Rate FiO2 10/18/21 03:14 36.1 87 20 92/51 (65) 96 Room Air 10/16/21 15:21 21 10/14/21 14:40 2 Capillary Refill : Less Than 3 Seconds General Appearance: No Apparent Distress, WD/WN, Chronically ill, Thin Respiratory: Lungs Clear, Normal Breath Sounds Cardiovascular: Regular Rate, Rhythm Neurologic/Psychiatric: Alert, Oriented x3, No Motor/Sensory Deficits, Normal Mood/Affect Results/Procedures Lab Patient resulted labs reviewed. Imaging: Reviewed Imaging Report Assessment/Plan Assessment and Plan Assess & Plan/Chief Complaint Assessment: Right Subcapital Femoral Neck Fracture s/p Fixation Fall From Standing COVID-19 Hx of COPD Anemia Hypokalemia Tobacco Use Insomnia Labial Wound/Abscess UTI Constipation Plan: Inpatient rehab eval PT and OT Antibiotics 10/17/2021: Bowel regimen Supportive care Clinical Quality Measures DVT/VTE Risk/Contraindication: Contraindications-Pharm: Other *list below* Other: operation APOORVA YOUNGBLOOD DO Oct 17, 2021 06:05
[2021-10-17] MEDS: RT-ALBUTEROL HFA 8.5 GM INHALER IH SCH ×2 (07:54→23:21)
[2021-10-17 08:36] VITALS: BP 93/56
[2021-10-17] MEDS: PANTOPRAZOLE 40 MG (PROTONIX) TAB PO SCH (09:12)
[2021-10-17] MEDS: SENNOSIDES 8.6 MG (SENOKOT) TAB PO SCH ×2 (09:12→20:52)
[2021-10-17] MEDS: DOCUSATE SODIUM 100 MG (COLACE) CAP PO SCH ×2 (09:12→20:52)
[2021-10-17] MEDS: SERTRALINE 100 MG (ZOLOFT) TAB PO SCH (09:12)
[2021-10-17] MEDS: NICOTINE 14 MG (NICODERM) PATCH TD SCH (09:13)
[2021-10-17] MEDS: HYDROcodone/APAP 5 MG/325 MG (LORTAB) TAB PO PRN (09:13)
[2021-10-17] MEDS ORDERED: BISACODYL 10 MG SUPP (DULCOLAX) PR PRN (11:30)
--- NOTE | 2021-10-17 11:32 | Progress Note - Ortho ---
Progress Note Subjective Date of Exam 10/17/21 Chief Complaint POD#3 Open reduction internal fixation of an impacted subcapital fracture right hip HPI/Events since last exam Mrs. Billy is 3 days postop open reduction internal fixation of impacted subcapital fracture right hip. She is having less hip pain but still having some pain. She is up ambulating with a walker with therapy partial weightbearing on the right. Her dressing has been changed this morning been performed by her nurse that her incision looks great.No other complaints. Review of Systems Reviewed and no additions or changes Allergies: Coded Allergies: No Known Drug Allergies (Unverified , 04/16/20) Home Meds Reported Medications Sertraline HCl (Sertraline HCl) 100 Mg Tablet, 200 MG PO DAILY, TAB TAKES 2 (100MG) TABS 10/14/21 Hydroxyzine HCl (Hydroxyzine HCl) 25 Mg Tablet, 25 MG PO QID PRN for ANXIETY, TAB 10/14/21 Trazodone HCl (Trazodone HCl) 150 Mg Tablet, 150 MG PO HS, TAB 10/13/21 Discontinued Scripts Sucralfate (Carafate) 1 Gm Tablet, 1 GM PO QID, #120 TAB Crush or dissolve and mix with 5-10 ML water to make a slurry. Take 30 minutes before meals and bedtime Prov:FLOR TRUJILLO MD 04/16/20 Omeprazole (Omeprazole) 20 Mg Capsule.dr, 20 MG PO BID, #60 CAP 2 Refills Prov:FLOR TRUJILLO MD 04/16/20 Objective Exam Constitutional: [] HEENT: [] Neck: [] Cardiovascular: [] Respiratory: [] Gastrointestinal: [] Genitourinary: [] Skin: [] Back/Spine: [] Extremities: [Dressing intact. Mild thigh pain with gentle range of motion of the hip and leg. No pain at the knee. No calf tenderness and negative Homans. She is able dorsiflex and plantarflex foot and ankle without any weakness or pain. Normal sensation of the foot and toes. Equal pulses. Equal positions of the leg] Neurologic: [] Psychiatric: [] Hematologic/lymphatic/immunologic: [] Vital Signs Vital Signs Date Time Temp Pulse Resp B/P (MAP) Pulse Ox O2 Delivery O2 Flow Rate FiO2 10/17/21 08:36 37.3 82 18 93/56 (68) 92 Room Air 10/17/21 08:00 92 Room Air 10/17/21 07:55 94 Room Air 10/17/21 04:00 36.4 71 18 110/65 (80) 95 Room Air 10/16/21 23:38 36.1 72 18 104/56 (72) 94 Room Air 10/16/21 20:50 Room Air 10/16/21 19:53 36.7 84 18 102/58 (73) 94 Room Air 10/16/21 19:01 94 Room Air 10/16/21 16:00 36.8 69 18 114/60 (78) 94 Room Air 10/16/21 15:21 36.9 62 96 21 10/16/21 12:04 36.9 73 20 99/60 (73) 97 Room Air I & O 10/17/21 07:00 Intake Total 4490 ml Output Total 2175 ml Balance 2315 ml Lab Results Laboratory Tests 10/17/21 05:25: White Blood Count 9.5, Red Blood Count 2.85L, Hemoglobin 7.3L, Hematocrit 23L, Mean Corpuscular Volume 80, Mean Corpuscular Hemoglobin 26, Mean Corpuscular Hemoglobin Concent 32, Red Cell Distribution Width 15.1H, Platelet Count 393, Mean Platelet Volume 10.0, Immature Granulocyte % (Auto) 1, Neutrophils (%) (Auto) 85H, Lymphocytes (%) (Auto) 7L, Monocytes (%) (Auto) 6, Eosinophils (%) (Auto) 1, Basophils (%) (Auto) 0, Neutrophils # (Auto) 8.1H, Lymphocytes # (Auto) 0.6L, Monocytes # (Auto) 0.6, Eosinophils # (Auto) 0.1, Basophils # (Auto) 0.0, Immature Granulocyte # (Auto) 0.1, Sodium Level 135, Potassium Level 3.6, Chloride Level 103, Carbon Dioxide Level 23, Anion Gap 9, Blood Urea Nitrogen 3L, Creatinine 0.68, Estimat Glomerular Filtration Rate 99, BUN/Creatinine Ratio 4, Glucose Level 93, Calcium Level 7.7L, Corrected Calcium 9.1, Total Bilirubin 0.3, Aspartate Amino Transf (AST/SGOT) 17, Alanine Aminotransferase (ALT/SGPT) 7, Alkaline Phosphatase 71, Total Protein 4.6L, Albumin 2.3L Microbiology 2/15/22 MRSA Screen - Final, Complete MRSA not isolated 10/13/21 Gram Stain - Final, Resulted 10/13/21 Wound Culture - Preliminary, Resulted Usual Mixed Skin Corin Escherichia coli Culture In Progress 10/13/21 Urine Culture - Final, Complete Strep anginosus Escherichia coli 10/13/21 Blood Culture - Preliminary, Resulted No growth Assessment and Plan Assessment Doing well 3 days postop. Hemoglobin 7.3 Problem List Unchanged Plan Continue physical therapy walker ambulation partial weightbearing on the right. Final Diagonsis Impacted subcapital fracture right hip status post open reduction internal fixation Level of the visit: Level 3 Clinical Quality Measures DVT/VTE Risk/Contraindication: Contraindications-Pharm: Other *list below* Other: operation MORENO PARMAR MD Oct 17, 2021 11:32
[2021-10-17] MEDS ORDERED: MAGNESIUM CITRATE 300 ML BTL PO NR (11:45)
[2021-10-17 12:25] VITALS: BP 122/58
--- NOTE | 2021-10-17 13:14 | Occupational Ther Daily Note ---
OT Current Status-Daily Note Subjective Pt in recliner, states she isn't feeling too good today. Pt attempting to drink medication in order to help her have a BM, pt indicates she is having a hard time keeping the medication down. Mental Status/Objective Patient Orientation: Person, Place, Situation ADL-Treatment Therapy Code Descriptions/Definitions Functional [place] Measure: 0=Not Assessed/NA 4=Minimal Assistance 1=Total Assistance 5=Supervision or Setup 2=Maximal Assistance 6=Modified [place] 3=Moderate Assistance 7=Complete IndependenceSCALE: Activities may be completed with or without assistive devices. 8-Hmdstovtez-qjgzegm completes the activity by him/herself with no assistance from a helper. 5-Set-up or Clean-up Assistance-helper sets up or cleans up; patient completes activity. [place] assists only prior to or following the activity. 4-Supervision or Touching Assistance-helper provides verbal cues and/or touching/steadying and/or contact guard assistance as patient completes activity. Assistance may be provided throughout the activity or intermittently. 3-Partial/Moderate Assistance-helper does LESS THAN HALF the effort. [place] lifts, holds or supports trunk or limbs, but provides less than half the effort. 2-Substantial/Maximal Assistance-helper does MORE THAN HALF the effort. [place] lifts or holds trunk or limbs and provides more than half the effort. 4-Xkalyqqtw-clellr does ALL the effort. Patient does none of the effort to co mplete the activity. Or, the assistance of 2 or more helpers is required for the patient to complete the activity. If activity was not attempted, code reason: 7-Patient Refused. 9-Not Applicable-not attempted and the patient did not perform the activity before the current illness, exacerbation or injury. 10-Not Attempted due to Environmental Limitations-(lack of equipment, weather restraints, etc.). 88-Not Attempted due to Medical Conditions or Safety Concerns. Eating (QC): 6 Other Treatment Pt seated in recliner, agreeable to OT Tx. Pt declined ADLs at this time, agreeable to BUE exercises in order to increase strength and activity tolerance in order to improve performance with functional mobility/transfers and ADLs. Pt unable to recall exercises from previous session. Pt completed x10 reps BUE shoulder flexion, elbow flexion/extension and finger flexion/extension with rest breaks between. Pt able to get drink from tray table and take drink independently. Post tx, pt in recliner, call light in reach and all needs met. Education OT Patient Education: Correct positioning, Energy conservation, Modified ADL techniques, Progress toward Goal/Update tx plan, Purpose of tx/functional activities Teaching Recipient: Patient Teaching Methods: Discussion Response to Teaching: Verbalize Understanding OT Assisted Goals Assisted Goals Time Frame: Nov 07, 2021 Eating (QC): 6 Oral Hygiene (QC): 5 Toileting Hygiene (QC): 4 Shower/Bathe Self (QC): 4 Upper Body Dressing (QC): 5 Lower Body Dressing (QC): 4 On/Off Footwear (QC): 3 Additional Goals: 1-Demonstrate ADL Tasks, 2-Verbalize Understanding, 3- ImproveStrength/Apple 1=Demonstrate adherence to instructed precautions during ADL tasks. 2=Patient will verbalize/demonstrate understanding of assistive devices/modifications for ADL. 3=Patient will improve strength/tolerance for activity to enable patient to perform ADL's. OT Education/Plan Problem List/Assessment Assessment: Decreased Activ Tolerance, Decreased UE Strength, Impaired Funct Balance, Impaired I ADL's, Impaired Self-Care Skills Discharge Recommendations Plan/Recommendations: Continue POC Treatment Plan/Plan of Care Patient would benefit from OT for education, treatment and training to promote independence in ADL's, mobility, safety and/or upper extremity function for ADL's. Plan of Care: ADL Retraining, Functional Mobility, UE Funct Exercise/Act Treatment Duration: Nov 07, 2021 Frequency: 3 times per week (3-5 times per week) Estimated Hrs Per Day: .25 hour per day Rehab Potential: Fair Time/GCodes Start Time: 12:50 Stop Time: 13:01 Total Time Billed (hr/min): 11 Billed Treatment Time 1, EX JOSÉ MIGUEL GARZA OT Oct 17, 2021 13:14
[2021-10-17] MEDS: ONDANSETRON 4 MG/2 ML (SDV) Z0FRAN IV PRN (13:32)
--- NOTE | 2021-10-17 13:52 | Physical Therapy Daily Note ---
PT Daily Note-Current Subjective Patient sitting in chair upon PT arrival, agreeable to treatment but she is vomiting upon PT arrival. Patient rates pain at 10/10. Mental Status Patient Orientation: Person, Place, Time, Situation Transfers SCALE: Activities may be completed with or without assistive devices. 3-Jjhqmvnlrw-bcfdflu completes the activity by him/herself with no assistance from a helper. 5-Set-up or Clean-up Assistance-helper sets up or cleans up; patient completes activity. [place] assists only prior to or following the activity. 4-Supervision or Touching Assistance-helper provides verbal cues and/or touching/steadying and/or contact guard assistance as patient completes activity. Assistance may be provided throughout the activity or intermittently. 3-Partial/Moderate Assistance-helper does LESS THAN HALF the effort. [place] lifts, holds or supports trunk or limbs, but provides less than half the effort. 2-Substantial/Maximal Assistance-helper does MORE THAN HALF the effort. [place] lifts or holds trunk or limbs and provides more than half the effort. 7-Qiwxechfj-uixown does ALL the effort. Patient does none of the effort to complete the activity. Or, the assistance of 2 or more helpers is required for the patient to complete the activity. If activity was not attempted, code reason: 7-Patient Refused. 9-Not Applicable-not attempted and the patient did not perform the activity before the current illness, exacerbation or injury. 10-Not Attempted due to Environmental Limitations-(lack of equipment, weather restraints, etc.). 88-Not Attempted due to Medical Conditions or Safety Concerns. Roll Left & Right (QC): 4 Sit to Lying (QC): 3 Sit to Stand (QC): 4 Chair/Tgu-ub-Msmrm Xfer(QC): 4 Weight Bearing Right Lower Extremity: Right Partial Weight Bearing Left Lower Extremity: Left Full Weight Bearing Gait Training Does the Patient Walk?: Yes Distance: 12 Walk 10 feet (QC): 4 Gait Assistive Device: FWW Assessment Current Status: Fair Progress Patient tolerated treatment fair given she was recently vomiting and reports severe right hip pain. Patient agreed to ambulation around the bed however requests nothing else due to feeling nauseated. Patient was educated that if she comes to ARU, she would have to perform 3 hours per day of therapy. Patient voiced understanding and reports "I'll do whatever I have to get better." Patient in chair post treatment with all needs met, nursing notified, call light in reach. PT Short Term Goals Short Term Goals Time Frame: Oct 25, 2021 Roll Left & Right: 4 Sit to lyin Lying to sitting on side of be: 4 Sit to stand: 4 Chair/ycp-th-tvern transfer: 4 Toilet transfer: 4 Walk 10 feet: 4 Walk 50 feet with two turns: 3 Walk 150 feet: 3 PT Drug Discovery Informatics Specialist Goals Senior Care Goals PT Drug Discovery Informatics Specialist Goals Time Frame: Nov 07, 2021 Roll Left & Right (QC): 6 Sit to Lying (QC): 6 Lying-Sitting on Side/Bed(QC): 6 Sit to Stand (QC): 6 Chair/Mna-pv-Ycifq Xfer(QC): 6 Toilet Transfer (QC): 6 Car Transfer (QC): 6 Does the Patient Walk: Yes Walk 10 feet (QC): 5 Walk 50ft with 2 Turns (QC): 4 Walk 150 ft (QC): 4 PT Plan Treatment/Plan Treatment Plan: Continue Plan of Care Treatment Plan: Bed Mobility, Education, Functional Activity Apple, Functional Strength, Group Therapy, Gait, Safety, Therapeutic Exercise, Transfers Treatment Duration: Nov 27, 2021 Frequency: 11 times per week Estimated Hrs Per Day: .25 hour per day Patient and/or Family Agrees t: Yes Safety Risks/Education Patient Education: Gait Training Teaching Recipient: Patient Teaching Methods: Demonstration, Discussion Response to Teaching: Verbalize Understanding, Return Demonstration Time/GCodes Time In: 1330 Time Out: 1345 Total Billed Treatment Time: 15 Total Billed Treatment Visit , TEJINDER Frey PT Oct 17, 2021 13:52
[2021-10-17] MEDS: cefTRIAXone 1 GM PRE-MIX 50 ML IV SCH (16:04)
[2021-10-17] MEDS: AZITHROMYCIN INJECTION 500 MG in NS (IVPB) 250 ML IV SCH (16:04)
[2021-10-17 16:27] VITALS: BP 114/66
[2021-10-17 20:06] VITALS: BP 104/52
[2021-10-17] MEDS: traZODone 150 MG (DESYREL) TABLET PO SCH (20:53)
[2021-10-17 23:49] VITALS: BP 86/52
[2021-10-18 03:14] VITALS: BP 92/51
[2021-10-18] MEDS: ENOXAPARIN 40 MG/0.4 ML (LOVENOX) SYR SC SCH (05:51)
[2021-10-18] MEDS: SUCRALFATE 1 GM (CARAFATE) TAB PO SCH ×4 (05:51→21:14)
--- NOTE | 2021-10-18 06:34 | Progress Note - Hospitalist ---
Subjective HPI/CC On Admission Date Seen by Provider: Oct 18, 2021 Time Seen by Provider: 11:30 Chief complaint: Right hip fracture with Covid History present illness: This is a 60-year-old white female who presented to the ER after laying on the couch for 2 days due to fatigue weakness and cough who apparently had a fall landing on her right side and having pain but could not get up to assess her issue. She came to the ER and she was found to have a right hip fracture. She is currently on room air. She was Covid positive swab. Subjective/Events-last exam Patient doing much better Pain medication increased Bowels moved 3 times Check meds and labs Review of Systems General: Fatigue, Malaise Musculoskeletal: leg pain Objective Exam Vital Signs Vital Signs Date Time Temp Pulse Resp B/P (MAP) Pulse Ox O2 Delivery O2 Flow Rate FiO2 10/18/21 23:34 36.2 77 20 88/50 (63) 98 Room Air 10/16/21 15:21 21 10/14/21 14:40 2 Capillary Refill : Less Than 3 Seconds General Appearance: No Apparent Distress, WD/WN, Chronically ill, Thin Respiratory: Lungs Clear, Normal Breath Sounds Cardiovascular: Regular Rate, Rhythm Neurologic/Psychiatric: Alert, Oriented x3, No Motor/Sensory Deficits, Normal Mood/Affect Results/Procedures Lab Laboratory Tests 10/18/21 07:01 10/18/21 08:04 10/19/21 05:15 Patient resulted labs reviewed. Imaging: Reviewed Imaging Report Assessment/Plan Assessment and Plan Assess & Plan/Chief Complaint Assessment: Right Subcapital Femoral Neck Fracture s/p Fixation Fall From Standing COVID-19 Hx of COPD Anemia Hypokalemia Tobacco Use Insomnia Labial Wound/Abscess UTI Constipation Plan: Inpatient rehab eval PT and OT Antibiotics 10/17/2021: Bowel regimen Supportive care 10/18/2021: Supportive care Clinical Quality Measures DVT/VTE Risk/Contraindication: Contraindications-Pharm: Other *list below* Other: operation APOORVA YOUNGBLOOD DO Oct 18, 2021 06:34
[2021-10-18 07:43] LABS: ALBUMIN 2.4 GM/DL (3.2-4.5); CHLORIDE 103 MMOL/L (98-107); POTASSIUM 3.2 MMOL/L (3.6-5.0); SODIUM 135 MMOL/L (135-145)
[2021-10-18 07:44] LABS: CALCIUM 7.8 MG/DL (8.5-10.1)
[2021-10-18 07:45] LABS: GLUCOSE 95 MG/DL (70-105); TOTAL PROTEIN 4.8 GM/DL (6.4-8.2)
[2021-10-18 07:46] LABS: CARBON DIOXIDE 22 MMOL/L (21-32)
[2021-10-18 07:47] LABS: BILIRUBIN,TOTAL 0.3 MG/DL (0.1-1.0)
[2021-10-18 07:49] LABS: ALKALINE PHOSPHATASE 72 U/L (40-136); CREATININE SERUM 0.72 MG/DL (0.60-1.30); GFR ESTIMATED 95
[2021-10-18 07:50] LABS: BUN/CREATININE RATIO 3
[2021-10-18 07:52] LABS: ALANINE AMINOTRANSFERASE < 6 U/L (0-55)
[2021-10-18] MEDS: RT-ALBUTEROL HFA 8.5 GM INHALER IH SCH ×2 (07:54→20:40)
[2021-10-18 08:14] LABS: BASOPHILS % (AUTO) 0 % (0-10); EOSINOPHILS # (AUTO) 0.1 10^3/uL (0.0-0.3); EOSINOPHILS % (AUTO) 1 % (0-10); HEMATOCRIT 23 % (35-52); HEMOGLOBIN 7.6 g/dL (11.5-16.0); LYMPHOCYTES # (AUTO) 1.1 10^3/uL (1.0-4.0); LYMPHOCYTES % (AUTO) 11 % (12-44); MEAN CORPUSCULAR HEMOGLOBIN 26 pg (25-34); MEAN CORPUSCULAR HGB CONC 33 g/dL (32-36); MEAN CORPUSCULAR VOLUME 80 fL (80-99); MONOCYTES # (AUTO) 0.5 10^3/uL (0.0-1.0); MONOCYTES % (AUTO) 5 % (0-12); NEUTROPHILS % (AUTO) 83 % (42-75); PLATELET COUNT 401 10^3/uL (130-400); WHITE BLOOD COUNT 9.6 10^3/uL (4.3-11.0)
[2021-10-18] MEDS: SENNOSIDES 8.6 MG (SENOKOT) TAB PO SCH ×2 (08:39→19:35)
[2021-10-18] MEDS: DOCUSATE SODIUM 100 MG (COLACE) CAP PO SCH ×2 (08:39→19:35)
[2021-10-18] MEDS: PANTOPRAZOLE 40 MG (PROTONIX) TAB PO SCH (08:39)
[2021-10-18] MEDS: NICOTINE 14 MG (NICODERM) PATCH TD SCH (08:40)
[2021-10-18] MEDS: SERTRALINE 100 MG (ZOLOFT) TAB PO SCH (08:40)
[2021-10-18] MEDS: HYDROcodone/APAP 5 MG/325 MG (LORTAB) TAB PO PRN ×2 (08:45→17:28)
[2021-10-18 10:17] VITALS: BP 83/51
[2021-10-18 11:14] VITALS: BP 99/57
--- NOTE | 2021-10-18 13:22 | Physical Therapy Progress Note ---
Therapy Progress Note Patient refused therapy this afternoon due to being ill. Apparently she has been vomiting since yesterday and says she is still ill and prefers not to perform therapy. Patient educated on the importance of therapy and she says she understands but still declines. EMILY DUGGAN PT Oct 18, 2021 13:22
[2021-10-18 14:58] VITALS: BP 107/63
[2021-10-18 20:51] VITALS: BP 105/65
[2021-10-18] MEDS: traZODone 150 MG (DESYREL) TABLET PO SCH (21:14)
[2021-10-18 23:34] VITALS: BP 88/50
[2021-10-19 05:30] LABS: BASOPHILS % (AUTO) 0 % (0-10); EOSINOPHILS # (AUTO) 0.1 10^3/uL (0.0-0.3); EOSINOPHILS % (AUTO) 2 % (0-10); HEMATOCRIT 22 % (35-52); HEMOGLOBIN 7.2 g/dL (11.5-16.0); LYMPHOCYTES # (AUTO) 1.2 10^3/uL (1.0-4.0); LYMPHOCYTES % (AUTO) 15 % (12-44); MEAN CORPUSCULAR HEMOGLOBIN 26 pg (25-34); MEAN CORPUSCULAR HGB CONC 32 g/dL (32-36); MEAN CORPUSCULAR VOLUME 80 fL (80-99); MEAN PLATELET VOLUME 9.7 fL (9.0-12.2); MONOCYTES # (AUTO) 0.6 10^3/uL (0.0-1.0); MONOCYTES % (AUTO) 7 % (0-12); NEUTROPHILS # (AUTO) 5.7 10^3/uL (1.8-7.8); NEUTROPHILS % (AUTO) 75 % (42-75); PLATELET COUNT 400 10^3/uL (130-400); WHITE BLOOD COUNT 7.6 10^3/uL (4.3-11.0)
[2021-10-19 05:42] LABS: ALBUMIN 2.4 GM/DL (3.2-4.5); CHLORIDE 105 MMOL/L (98-107); POTASSIUM 2.9 MMOL/L (3.6-5.0); SODIUM 137 MMOL/L (135-145)
[2021-10-19 05:43] LABS: CALCIUM 7.9 MG/DL (8.5-10.1)
[2021-10-19 05:44] LABS: GLUCOSE 96 MG/DL (70-105); TOTAL PROTEIN 4.8 GM/DL (6.4-8.2)
[2021-10-19] MEDS: SUCRALFATE 1 GM (CARAFATE) TAB PO SCH ×4 (05:45→20:50)
[2021-10-19] MEDS: ENOXAPARIN 40 MG/0.4 ML (LOVENOX) SYR SC SCH (05:45)
[2021-10-19 05:46] LABS: BILIRUBIN,TOTAL 0.4 MG/DL (0.1-1.0); CARBON DIOXIDE 23 MMOL/L (21-32)
[2021-10-19 05:48] LABS: ALKALINE PHOSPHATASE 73 U/L (40-136); CREATININE SERUM 0.73 MG/DL (0.60-1.30); GFR ESTIMATED 94
[2021-10-19 05:49] LABS: BUN/CREATININE RATIO 3
[2021-10-19 05:51] LABS: ALANINE AMINOTRANSFERASE 6 U/L (0-55)
--- NOTE | 2021-10-19 07:46 | Progress Note - Hospitalist ---
Subjective HPI/CC On Admission Date Seen by Provider: Oct 19, 2021 Time Seen by Provider: 10:00 Chief complaint: Right hip fracture with Covid History present illness: This is a 60-year-old white female who presented to the ER after laying on the couch for 2 days due to fatigue weakness and cough who apparently had a fall landing on her right side and having pain but could not get up to assess her issue. She came to the ER and she was found to have a right hip fracture. She is currently on room air. She was Covid positive swab. Subjective/Events-last exam Patient doing well No major issues Pain is doing better Check meds labs Isolation discontinued today Review of Systems General: Fatigue, Malaise Objective Exam Vital Signs Vital Signs Date Time Temp Pulse Resp B/P (MAP) Pulse Ox O2 Delivery O2 Flow Rate FiO2 10/19/21 15:54 36.5 64 18 125/68 (87) 97 Room Air 10/16/21 15:21 21 10/14/21 14:40 2 Capillary Refill : Less Than 3 Seconds General Appearance: No Apparent Distress, WD/WN, Chronically ill Respiratory: Lungs Clear, Normal Breath Sounds Cardiovascular: Regular Rate, Rhythm Neurologic/Psychiatric: Alert, Oriented x3 Results/Procedures Lab Laboratory Tests 10/19/21 05:15 Patient resulted labs reviewed. Imaging: Reviewed Imaging Report Assessment/Plan Assessment and Plan Assess & Plan/Chief Complaint Assessment: Right Subcapital Femoral Neck Fracture s/p Fixation Fall From Standing COVID-19 Hx of COPD Anemia Hypokalemia Tobacco Use Insomnia Labial Wound/Abscess UTI Constipation Plan: Inpatient rehab eval PT and OT Antibiotics 10/17/2021: Bowel regimen Supportive care 10/18/2021: Supportive care 10/19/2021: Await rehab Clinical Quality Measures DVT/VTE Risk/Contraindication: Contraindications-Pharm: Other *list below* Other: operation YOUNGBLOODENEDELIA RODRIGESNey ROSE Oct 19, 2021 07:46
[2021-10-19 08:00] VITALS: BP 94/53
[2021-10-19] MEDS: NICOTINE 14 MG (NICODERM) PATCH TD SCH (08:48)
[2021-10-19] MEDS: PANTOPRAZOLE 40 MG (PROTONIX) TAB PO SCH (08:48)
[2021-10-19] MEDS: KCL 20 MEQ TAB (K-DUR) PO SCH ×2 (08:48→17:26)
[2021-10-19] MEDS: SENNOSIDES 8.6 MG (SENOKOT) TAB PO SCH ×2 (08:48→20:50)
[2021-10-19] MEDS: SERTRALINE 100 MG (ZOLOFT) TAB PO SCH (08:48)
[2021-10-19] MEDS: DOCUSATE SODIUM 100 MG (COLACE) CAP PO SCH ×2 (08:49→20:50)
[2021-10-19] MEDS: HYDROcodone/APAP 5 MG/325 MG (LORTAB) TAB PO PRN ×2 (08:55→17:26)
[2021-10-19] MEDS: RT-ALBUTEROL HFA 8.5 GM INHALER IH SCH ×2 (09:02→22:02)
[2021-10-19 15:54] VITALS: BP 125/68
[2021-10-19] MEDS: traZODone 150 MG (DESYREL) TABLET PO SCH (20:50)
[2021-10-19 23:37] VITALS: BP 125/68
[2021-10-20 00:20] VITALS: BP 94/57
[2021-10-20] MEDS: ENOXAPARIN 40 MG/0.4 ML (LOVENOX) SYR SC SCH (06:21)
[2021-10-20] MEDS: HYDROcodone/APAP 5 MG/325 MG (LORTAB) TAB PO PRN ×4 (06:21→23:50)
[2021-10-20] MEDS: SUCRALFATE 1 GM (CARAFATE) TAB PO SCH ×4 (06:21→21:11)
[2021-10-20 06:42] LABS: BASOPHILS % (AUTO) 0 % (0-10); EOSINOPHILS # (AUTO) 0.1 10^3/uL (0.0-0.3); EOSINOPHILS % (AUTO) 1 % (0-10); HEMATOCRIT 23 % (35-52); HEMOGLOBIN 7.5 g/dL (11.5-16.0); LYMPHOCYTES # (AUTO) 1.1 10^3/uL (1.0-4.0); LYMPHOCYTES % (AUTO) 14 % (12-44); MEAN CORPUSCULAR HEMOGLOBIN 26 pg (25-34); MEAN CORPUSCULAR HGB CONC 32 g/dL (32-36); MEAN CORPUSCULAR VOLUME 82 fL (80-99); MEAN PLATELET VOLUME 9.9 fL (9.0-12.2); MONOCYTES # (AUTO) 0.5 10^3/uL (0.0-1.0); MONOCYTES % (AUTO) 6 % (0-12); NEUTROPHILS # (AUTO) 5.9 10^3/uL (1.8-7.8); NEUTROPHILS % (AUTO) 78 % (42-75); PLATELET COUNT 413 10^3/uL (130-400); WHITE BLOOD COUNT 7.6 10^3/uL (4.3-11.0)
[2021-10-20 06:57] LABS: ALBUMIN 2.5 GM/DL (3.2-4.5)
[2021-10-20 06:58] LABS: CHLORIDE 105 MMOL/L (98-107); POTASSIUM 3.7 MMOL/L (3.6-5.0); SODIUM 137 MMOL/L (135-145)
[2021-10-20 07:00] LABS: GLUCOSE 96 MG/DL (70-105)
[2021-10-20 07:01] LABS: CARBON DIOXIDE 23 MMOL/L (21-32)
[2021-10-20 07:02] LABS: BILIRUBIN,TOTAL 0.3 MG/DL (0.1-1.0)
[2021-10-20 07:03] LABS: ALKALINE PHOSPHATASE 82 U/L (40-136)
[2021-10-20 07:04] LABS: CREATININE SERUM 0.76 MG/DL (0.60-1.30); GFR ESTIMATED 89
[2021-10-20 07:05] LABS: BUN/CREATININE RATIO 3
[2021-10-20 07:06] LABS: ALANINE AMINOTRANSFERASE 6 U/L (0-55)
[2021-10-20 08:00] VITALS: BP 106/65
[2021-10-20] MEDS: KCL 20 MEQ TAB (K-DUR) PO SCH ×2 (08:31→18:22)
[2021-10-20] MEDS: SERTRALINE 100 MG (ZOLOFT) TAB PO SCH (08:31)
[2021-10-20] MEDS: PANTOPRAZOLE 40 MG (PROTONIX) TAB PO SCH (08:31)
[2021-10-20] MEDS: NICOTINE 14 MG (NICODERM) PATCH TD SCH (08:32)
[2021-10-20] MEDS: DOCUSATE SODIUM 100 MG (COLACE) CAP PO SCH ×2 (08:33→21:11)
[2021-10-20] MEDS: SENNOSIDES 8.6 MG (SENOKOT) TAB PO SCH ×2 (08:33→21:11)
--- NOTE | 2021-10-20 08:57 | Physical Therapy Daily Note ---
PT Daily Note-Current Subjective Patient reports she is feeling a little better today. Vomited once yesterday, but other than that feels like she is getting better. Rates pain at 8/10 in right hip. Mental Status Patient Orientation: Person, Place, Time, Situation Transfers SCALE: Activities may be completed with or without assistive devices. 0-Hjmxauftyl-ddgakpa completes the activity by him/herself with no assistance from a helper. 5-Set-up or Clean-up Assistance-helper sets up or cleans up; patient completes activity. [place] assists only prior to or following the activity. 4-Supervision or Touching Assistance-helper provides verbal cues and/or touch ing/steadying and/or contact guard assistance as patient completes activity. Assistance may be provided throughout the activity or intermittently. 3-Partial/Moderate Assistance-helper does LESS THAN HALF the effort. [place] lifts, holds or supports trunk or limbs, but provides less than half the effort. 2-Substantial/Maximal Assistance-helper does MORE THAN HALF the effort. [place] lifts or holds trunk or limbs and provides more than half the effort. 9-Renetyrhn-apadbp does ALL the effort. Patient does none of the effort to complete the activity. Or, the assistance of 2 or more helpers is required for the patient to complete the activity. If activity was not attempted, code reason: 7-Patient Refused. 9-Not Applicable-not attempted and the patient did not perform the activity before the current illness, exacerbation or injury. 10-Not Attempted due to Environmental Limitations-(lack of equipment, weather restraints, etc.). 88-Not Attempted due to Medical Conditions or Safety Concerns. Roll Left & Right (QC): 4 Sit to Lying (QC): 4 Lying to Sitting/Side of Bed(Q: 4 Sit to Stand (QC): 4 Chair/Tbc-bd-Dhdkd Xfer(QC): 4 Weight Bearing Right Lower Extremity: Right Partial Weight Bearing Left Lower Extremity: Left Full Weight Bearing Gait Training Does the Patient Walk?: Yes Distance: 30 Walk 10 feet (QC): 4 Gait Assistive Device: FWW Exercises Supine Ex: Ankle pumps, Quad Set, Glut sets Supine Reps: 20 Assessment Current Status: Fair Progress Patient tolerated treatment well. Patient performs LE exercise as listed. She demonstrates minimal improvement in gait and mobility. Patient performs all observed bed mobility and transfers with SBA. She ambulates 30 feet with FWW, with SBA and verbal cues for safety, progression, balance and posture. Patient ambulates with PWB on right LE, with Good overall gait pattern given weight bearing restrictions. Patient in chair post treatment with all needs met, nursing notified, call light in hand. PT Short Term Goals Short Term Goals Time Frame: Oct 25, 2021 Roll Left & Right: 4 Sit to lyin Lying to sitting on side of be: 4 Sit to stand: 4 Chair/qsw-yj-kojnw transfer: 4 Toilet transfer: 4 Walk 10 feet: 4 Walk 50 feet with two turns: 3 Walk 150 feet: 3 PT Steam Shovel Oiler Goals Steam Shovel Oiler Goals PT Steam Shovel Oiler Goals Time Frame: Nov 07, 2021 Roll Left & Right (QC): 6 Sit to Lying (QC): 6 Lying-Sitting on Side/Bed(QC): 6 Sit to Stand (QC): 6 Chair/Uyi-pw-Oasma Xfer(QC): 6 Toilet Transfer (QC): 6 Car Transfer (QC): 6 Does the Patient Walk: Yes Walk 10 feet (QC): 5 Walk 50ft with 2 Turns (QC): 4 Walk 150 ft (QC): 4 PT Plan Treatment/Plan Treatment Plan: Continue Plan of Care Treatment Plan: Bed Mobility, Education, Functional Activity Apple, Functional Strength, Group Therapy, Gait, Safety, Therapeutic Exercise, Transfers Treatment Duration: Nov 27, 2021 Frequency: 11 times per week Estimated Hrs Per Day: .25 hour per day Patient and/or Family Agrees t: Yes Safety Risks/Education Patient Education: Gait Training Teaching Recipient: Patient Teaching Methods: Demonstration, Discussion Response to Teaching: Verbalize Understanding, Return Demonstration Time/GCodes Time In: 827 Time Out: 851 Total Billed Treatment Time: 24 Total Billed Treatment Visit, Gait, Ex TEJINDER DAVIS PT Oct 20, 2021 08:57
--- NOTE | 2021-10-20 09:08 | Progress Note - Ortho ---
Progress Note Subjective Date of Exam 10/20/21 Chief Complaint POD#6 Open reduction internal fixation Impacted subcapital fracture right hip HPI/Events since last exam Mrs. Billy is 6 days postop open reduction internal fixation of an impacted subcapital fracture right hip. She had a femoral neck device fixation. She is no longer on Covid isolation.She is still having some right hip pain but it is improving. She is walker ambulation partial weightbearing on the right. Review of Systems Reviewed and no additions or changes Allergies: Coded Allergies: No Known Drug Allergies (Unverified , 04/16/20) Home Meds Reported Medications Sertraline HCl (Sertraline HCl) 100 Mg Tablet, 200 MG PO DAILY, TAB TAKES 2 (100MG) TABS 10/14/21 Hydroxyzine HCl (Hydroxyzine HCl) 25 Mg Tablet, 25 MG PO QID PRN for ANXIETY, TAB 10/14/21 Trazodone HCl (Trazodone HCl) 150 Mg Tablet, 150 MG PO HS, TAB 10/13/21 Discontinued Scripts Sucralfate (Carafate) 1 Gm Tablet, 1 GM PO QID, #120 TAB Crush or dissolve and mix with 5-10 ML water to make a slurry. Take 30 minutes before meals and bedtime Prov:FLOR TRUJILLO MD 04/16/20 Omeprazole (Omeprazole) 20 Mg Capsule.dr, 20 MG PO BID, #60 CAP 2 Refills Prov:FLOR TRUJILLO MD 04/16/20 Objective Exam Constitutional: [] HEENT: [] Neck: [] Cardiovascular: [] Respiratory: [] Gastrointestinal: [] Genitourinary: [] Skin: [] Back/Spine: [] Extremities: [Dressing is intact. No drainage. Mild pain with gentle range of motion right hip. No calf tenderness Negative Homans. Good strength on dorsiflexion plantarflexion of the foot and ankle without pain. Normal sensation with good cap refill and equal pulses] Neurologic: [] Psychiatric: [] Hematologic/lymphatic/immunologic: [] Vital Signs Vital Signs Date Time Temp Pulse Resp B/P (MAP) Pulse Ox O2 Delivery O2 Flow Rate FiO2 10/20/21 06:51 36.9 10/20/21 00:20 36.9 73 20 94/57 (69) 97 Room Air 10/19/21 23:37 36.5 65 97 21 10/19/21 22:02 96 Room Air 10/19/21 20:23 36.5 10/19/21 19:55 Room Air 10/19/21 19:53 36.5 10/19/21 15:54 36.5 64 18 125/68 (87) 97 Room Air I & O 10/20/21 07:00 Intake Total 2170 ml Output Total 3 ml Balance 2167 ml Lab Results Laboratory Tests 10/20/21 06:34: White Blood Count 7.6, Red Blood Count 2.87L, Hemoglobin 7.5L, Hematocrit 23L, Mean Corpuscular Volume 82, Mean Corpuscular Hemoglobin 26, Mean Corpuscular Hemoglobin Concent 32, Red Cell Distribution Width 15.9H, Platelet Count 413H, Mean Platelet Volume 9.9, Immature Granulocyte % (Auto) 1, Neutrophils (%) (Auto) 78H, Lymphocytes (%) (Auto) 14, Monocytes (%) (Auto) 6, Eosinophils (%) (Auto) 1, Basophils (%) (Auto) 0, Neutrophils # (Auto) 5.9, Lymphocytes # (Auto) 1.1, Monocytes # (Auto) 0.5, Eosinophils # (Auto) 0.1, Basophils # (Auto) 0.0, Immature Granulocyte # (Auto) 0.0, Sodium Level 137, Potassium Level 3.7, Chloride Level 105, Carbon Dioxide Level 23, Anion Gap 9, Blood Urea Nitrogen < 2L, Creatinine 0.76, Estimat Glomerular Filtration Rate 89, BUN/Creatinine Ratio 3, Glucose Level 96, Calcium Level 8.0L, Corrected Calcium 9.2, Total Bilirubin 0.3, Aspartate Amino Transf (AST/SGOT) 16, Alanine Aminotransferase (ALT/SGPT) 6, Alkaline Phosphatase 82, Total Protein 5.0L, Albumin 2.5L Microbiology 10/14/21 MRSA Screen - Final, Complete MRSA not isolated 10/13/21 Gram Stain - Final, Complete 10/13/21 Wound Culture - Final, Complete Usual Mixed Skin Corin Escherichia coli 10/13/21 Urine Culture - Final, Complete Strep anginosus Escherichia coli 10/13/21 Blood Culture - Final, Complete No growth Assessment and Plan Assessment Doing well 6 days postop Problem List Unchanged Plan Continue with present treatment. Being evaluated for inpatient rehab Final Diagonsis Impacted subcapital fracture right hip status post open reduction internal fixation Level of the visit: Level 3 Clinical Quality Measures DVT/VTE Risk/Contraindication: Contraindications-Pharm: Other *list below* Other: operation MORENO PARMAR MD Oct 20, 2021 09:08
[2021-10-20] MEDS: ONDANSETRON 4 MG/2 ML (SDV) Z0FRAN IV PRN (09:31)
[2021-10-20] MEDS ORDERED: IRON SUCROSE 200 MG/10 ML (VENOFER) VIAL IV SCH (10:15)
[2021-10-20] MEDS: CYANOCOBALAMIN 1,000 MCG (VITAMIN B-12) TABLET PO SCH (10:54)
--- NOTE | 2021-10-20 11:25 | Progress Note - Hospitalist ---
PITA HOLLIS 10/20/21 1125: Subjective HPI/CC On Admission Date Seen by Provider: Oct 20, 2021 Time Seen by Provider: 09:00 Chief complaint: Right hip fracture with Covid History present illness: This is a 60-year-old white female who presented to the ER after laying on the couch for 2 days due to fatigue weakness and cough who apparently had a fall landing on her right side and having pain but could not get up to assess her issue. She came to the ER and she was found to have a right hip fracture. She is currently on room air. She was Covid positive swab. Subjective/Events-last exam Patient resting in chair this morning. No new complaints. Still having mild right hip pain s/p surgery. No SOB or dyspnea. Awaiting inpatient rehab. Review of Systems General: No Chills, No Night Sweats HEENT: No Head Aches, No Visual Changes, No Eye Pain Pulmonary: No Dyspnea, No Cough Cardiovascular: No: Chest Pain, Palpitations, Orthopnea Gastrointestinal: No: Nausea, Vomiting, Abdominal Pain, Diarrhea, Constipation Genitourinary: No Dysuria, No Frequency Musculoskeletal: No: leg pain, foot pain Neurological: No: Weakness, Numbness Focused Exam Sepsis Stage: Ruled Out Respiratory: Chest Non Tender, Lungs Clear, Normal Breath Sounds, No Accessory Muscle Use, No Respiratory Distress Cardiovascular: Regular Rate, Rhythm, No Edema, No Gallop, No JVD, No Murmur, Normal Peripheral Pulses Capillary Refill: Less Than 3 Seconds Skin: normal color, warm/dry Objective Exam Vital Signs Vital Signs Date Time Temp Pulse Resp B/P (MAP) Pulse Ox O2 Delivery O2 Flow Rate FiO2 10/20/21 09:24 98 Room Air 10/20/21 08:00 36.2 63 18 106/65 (79) 10/19/21 23:37 21 10/14/21 14:40 2 Capillary Refill : Less Than 3 Seconds General Appearance: No Apparent Distress, WD/WN HEENT: PERRL/EOMI, Pharynx Normal, Moist Mucous Membranes Neck: Full Range of Motion, Normal Inspection, Non Tender, Supple Respiratory: Chest Non Tender, Lungs Clear, Normal Breath Sounds, No Accessory Muscle Use, No Respiratory Distress Cardiovascular: Regular Rate, Rhythm, No Edema, No Gallop, No JVD, No Murmur, Normal Peripheral Pulses Gastrointestinal: Normal Bowel Sounds, Non Tender, Soft Rectal: Deferred Back: Normal Inspection Extremity: Normal Capillary Refill, Normal Inspection, Normal Range of Motion, Non Tender, No Calf Tenderness Neurologic/Psychiatric: Alert, Oriented x3, No Motor/Sensory Deficits, Normal Mood/Affect, chlorinator II-XII Norm as Tested Skin: Normal Color, Warm/Dry Lymphatic: No Adenopathy Results/Procedures Lab Laboratory Tests 10/20/21 06:34 Patient resulted labs reviewed. Imaging: Reviewed Imaging Report Assessment/Plan Assessment and Plan Assess & Plan/Chief Complaint Assessment: Right Subcapital Femoral Neck Fracture s/p Fixation Fall From Standing COVID-19 Hx of COPD Anemia Hypokalemia - resolved Tobacco Use Insomnia Labial Wound/Abscess UTI Constipation Plan: Awaiting inpatient rehab PT/OT FISH TENDER consult for further evaluation of labial abscess Iron & B12 infusion Diagnosis/Problems Diagnosis/Problems (1) Closed right hip fracture Status: Acute Qualifiers: Qualified Codes: S72.001A - Fracture of unspecified part of neck of right femur, initial encounter for closed fracture (2) COVID-19 virus infection Status: Acute (3) Fall from standing Status: Acute Qualifiers: Qualified Codes: W19.XXXA - Unspecified fall, initial encounter (4) Hypokalemia Status: Acute (5) Anemia (6) Open wound of labium majus (7) Tobacco use Status: Chronic (8) Insomnia Status: Chronic (9) Dehydration Status: Resolved (10) Urinary tract infection Status: Resolved Clinical Quality Measures DVT/VTE Risk/Contraindication: Contraindications-Pharm: Other *list below* Other: operation SARA ADAMS 10/21/21 0523: Subjective Subjective/Events-last exam Pt is doing a lot better Iron infusion will continue B12 will be added in a tablet Vaginal ulceration will be checked by Dr. Kumar Checked meds and labs Awaiting rehab Review of Systems General: Fatigue, Malaise Musculoskeletal: leg pain Objective Exam General Appearance: No Apparent Distress, WD/WN, Chronically ill Respiratory: Lungs Clear, Normal Breath Sounds Cardiovascular: Regular Rate, Rhythm Neurologic/Psychiatric: Alert, Oriented x3 Assessment/Plan Assessment and Plan Assess & Plan/Chief Complaint Evaluate vaginal ulcer Supervisory-Addendum Brief Verification & Attestation Participated in pt care: history, MDM, physical Personally performed: exam, history, MDM, supervision of care Care discussed with: Medical Student Procedures: n/a Results interpretation: Verified all documentation Verification and Attestation of Medical Student E/M Service A medical student performed and documented this service in my presence. I reviewed and verified all information documented by the medical student and made modifications to such information, when appropriate. I personally performed the physical exam and medical decision making. Sara Adams, Oct 21, 2021,05:23 PITA HOLLIS Oct 20, 2021 11:25 SARA ADAMS DO Oct 21, 2021 05:23
--- NOTE | 2021-10-20 14:15 | Occupational Ther Daily Note ---
OT Current Status-Daily Note Subjective Pt in bed, agreeable to OT Tx. Pt reports pain in hip, but does not rate. Mental Status/Objective Patient Orientation: Person, Place, Time, Situation ADL-Treatment Therapy Code Descriptions/Definitions Functional [place] Measure: 0=Not Assessed/NA 4=Minimal Assistance 1=Total Assistance 5=Supervision or Setup 2=Maximal Assistance 6=Modified [place] 3=Moderate Assistance 7=Complete IndependenceSCALE: Activities may be completed with or without assistive devices. 8-Sxznumwajo-vgpsfja completes the activity by him/herself with no assistance from a helper. 5-Set-up or Clean-up Assistance-helper sets up or cleans up; patient completes activity. [place] assists only prior to or following the activity. 4-Supervision or Touching Assistance-helper provides verbal cues and/or touching/steadying and/or contact guard assistance as patient completes activity. Assistance may be provided throughout the activity or intermittently. 3-Partial/Moderate Assistance-helper does LESS THAN HALF the effort. [place] lifts, holds or supports trunk or limbs, but provides less than half the effort. 2-Substantial/Maximal Assistance-helper does MORE THAN HALF the effort. [place] lifts or holds trunk or limbs and provides more than half the effort. 5-Vaksgzzmg-hkkmhj does ALL the effort. Patient does none of the effort to complete the activity. Or, the assistance of 2 or more helpers is required for the patient to complete the activity. If activity was not attempted, code reason: 7-Patient Refused. 9-Not Applicable-not attempted and the patient did not perform the activity before the current illness, exacerbation or injury. 10-Not Attempted due to Environmental Limitations-(lack of equipment, weather restraints, etc.). 88-Not Attempted due to Medical Conditions or Safety Concerns. Eating (QC): 6 (IND with lunch) Lower Body Dressing (QC): 4 (Supervision, pt able to doff/don brief.) Toileting Hygiene (QC): 4 (Supervision, pt able to manage pants and hygiene) Toilet Transfer (QC): 4 (Supervision) Other Treatment Pt laying in bed, transferred supine to sit EOB independently. Pt used FWW to perform functional mobility into bathroom and onto toilet, supervision. Pt completed toileting, doffed soiled brief, then donned new brief with supervision. Pt stood at FWW, then returned to EOB with supervision. Pt transferred supine independently. Post tx, pt in bed, call light in reach and all needs met. Education OT Patient Education: Correct positioning, Energy conservation, Modified ADL techniques, Progress toward Goal/Update tx plan, Purpose of tx/functional activities Teaching Recipient: Patient Teaching Methods: Discussion Response to Teaching: Verbalize Understanding OT Longterm Goals Longterm Goals Time Frame: Nov 07, 2021 Eating (QC): 6 Oral Hygiene (QC): 5 Toileting Hygiene (QC): 4 Shower/Bathe Self (QC): 4 Upper Body Dressing (QC): 5 Lower Body Dressing (QC): 4 On/Off Footwear (QC): 3 Additional Goals: 1-Demonstrate ADL Tasks, 2-Verbalize Understanding, 3- ImproveStrength/Apple 1=Demonstrate adherence to instructed precautions during ADL tasks. 2=Patient will verbalize/demonstrate understanding of assistive devices/modifications for ADL. 3=Patient will improve strength/tolerance for activity to enable patient to perform ADL's. OT Education/Plan Problem List/Assessment Assessment: Decreased Activ Tolerance, Decreased UE Strength, Impaired I ADL's, Impaired Self-Care Skills Discharge Recommendations Plan/Recommendations: Continue POC Treatment Plan/Plan of Care Patient would benefit from OT for education, treatment and training to promote independence in ADL's, mobility, safety and/or upper extremity function for ADL's. Plan of Care: ADL Retraining, Functional Mobility, UE Funct Exercise/Act Treatment Duration: Nov 07, 2021 Frequency: 3 times per week (3-5 times per week) Estimated Hrs Per Day: .25 hour per day Rehab Potential: Fair Time/GCodes Start Time: 13:50 Stop Time: 14:59 Total Time Billed (hr/min): 9 Billed Treatment Time 1, ADL JOSÉ MIGUEL GARZA OT Oct 20, 2021 14:15
--- NOTE | 2021-10-20 14:58 | Physical Therapy Daily Note ---
PT Daily Note-Current Subjective Patient lying supine in bed upon PT arrival, agreeable to treatment. Transfers SCALE: Activities may be completed with or without assistive devices. 6-Wgqkstdbpw-ydkeacb completes the activity by him/herself with no assistance from a helper. 5-Set-up or Clean-up Assistance-helper sets up or cleans up; patient completes activity. [place] assists only prior to or following the activity. 4-Supervision or Touching Assistance-helper provides verbal cues and/or touching/steadying and/or contact guard assistance as patient completes act ivity. Assistance may be provided throughout the activity or intermittently. 3-Partial/Moderate Assistance-helper does LESS THAN HALF the effort. [place] lifts, holds or supports trunk or limbs, but provides less than half the effort. 2-Substantial/Maximal Assistance-helper does MORE THAN HALF the effort. [place] lifts or holds trunk or limbs and provides more than half the effort. 5-Uaiszfqrn-dskzkf does ALL the effort. Patient does none of the effort to complete the activity. Or, the assistance of 2 or more helpers is required for the patient to complete the activity. If activity was not attempted, code reason: 7-Patient Refused. 9-Not Applicable-not attempted and the patient did not perform the activity before the current illness, exacerbation or injury. 10-Not Attempted due to Environmental Limitations-(lack of equipment, weather restraints, etc.). 88-Not Attempted due to Medical Conditions or Safety Concerns. Roll Left & Right (QC): 4 Sit to Lying (QC): 4 Lying to Sitting/Side of Bed(Q: 4 Sit to Stand (QC): 4 Chair/Kpk-rt-Isjfq Xfer(QC): 4 Weight Bearing Right Lower Extremity: Right Partial Weight Bearing Left Lower Extremity: Left Full Weight Bearing Gait Training Does the Patient Walk?: Yes Distance: 140 Walk 10 feet (QC): 4 Walk 50 ft with 2 Turns(QC): 4 Walk 150 ft (QC): 4 Gait Persons Needed: 1 Gait Assistive Device: FWW Assessment Current Status: Good Progress Patient demonstrates good overall increase in gait distance and tolerance to ambulation. Patient performs all observed bed mobility and transfers with SBA. She ambulates 140 feet with FWW with SBA and verbal cues for posture, conservation of energy and safety. Patient in bed post treatment with all needs met, nursing notified, call light in reach. PT Short Term Goals Short Term Goals Time Frame: Oct 25, 2021 Roll Left & Right: 4 Sit to lyin Lying to sitting on side of be: 4 Sit to stand: 4 Chair/cdy-bc-piqml transfer: 4 Toilet transfer: 4 Walk 10 feet: 4 Walk 50 feet with two turns: 3 Walk 150 feet: 3 PT Physician Practice Manager Goals Nursing Home Goals PT Physician Practice Manager Goals Time Frame: Nov 07, 2021 Roll Left & Right (QC): 6 Sit to Lying (QC): 6 Lying-Sitting on Side/Bed(QC): 6 Sit to Stand (QC): 6 Chair/Vqw-vy-Kaxwn Xfer(QC): 6 Toilet Transfer (QC): 6 Car Transfer (QC): 6 Does the Patient Walk: Yes Walk 10 feet (QC): 5 Walk 50ft with 2 Turns (QC): 4 Walk 150 ft (QC): 4 PT Plan Treatment/Plan Treatment Plan: Continue Plan of Care Treatment Plan: Bed Mobility, Education, Functional Activity Apple, Functional Strength, Group Therapy, Gait, Safety, Therapeutic Exercise, Transfers Treatment Duration: Nov 27, 2021 Frequency: 11 times per week Estimated Hrs Per Day: .25 hour per day Patient and/or Family Agrees t: Yes Safety Risks/Education Patient Education: Gait Training Teaching Recipient: Patient Teaching Methods: Demonstration, Discussion Response to Teaching: Verbalize Understanding, Return Demonstration Time/GCodes Time In: 1435 Time Out: 1450 Total Billed Treatment Time: 15 Total Billed Treatment Visit, Gait TEJINDER DAVIS PT Oct 20, 2021 14:58
[2021-10-20 15:55] VITALS: BP 112/60
[2021-10-20] MEDS: traZODone 150 MG (DESYREL) TABLET PO SCH (21:11)
[2021-10-20] MEDS: RT-ALBUTEROL HFA 8.5 GM INHALER IH SCH (23:26)
[2021-10-20 23:47] VITALS: BP 96/55
[2021-10-21] MEDS: CYANOCOBALAMIN 1,000 MCG (VITAMIN B-12) TABLET PO SCH (05:35)
[2021-10-21] MEDS: ENOXAPARIN 40 MG/0.4 ML (LOVENOX) SYR SC SCH (05:35)
[2021-10-21] MEDS: SUCRALFATE 1 GM (CARAFATE) TAB PO SCH ×2 (05:36→10:45)
[2021-10-21 06:22] LABS: BASOPHILS % (AUTO) 0 % (0-10); EOSINOPHILS # (AUTO) 0.4 10^3/uL (0.0-0.3); EOSINOPHILS % (AUTO) 6 % (0-10); HEMATOCRIT 24 % (35-52); HEMOGLOBIN 7.6 g/dL (11.5-16.0); LYMPHOCYTES # (AUTO) 1.2 10^3/uL (1.0-4.0); LYMPHOCYTES % (AUTO) 19 % (12-44); MEAN CORPUSCULAR HEMOGLOBIN 26 pg (25-34); MEAN CORPUSCULAR HGB CONC 32 g/dL (32-36); MEAN CORPUSCULAR VOLUME 83 fL (80-99); MONOCYTES # (AUTO) 0.5 10^3/uL (0.0-1.0); MONOCYTES % (AUTO) 8 % (0-12); NEUTROPHILS # (AUTO) 4.1 10^3/uL (1.8-7.8); NEUTROPHILS % (AUTO) 66 % (42-75); PLATELET COUNT 427 10^3/uL (130-400); WHITE BLOOD COUNT 6.2 10^3/uL (4.3-11.0)
[2021-10-21 06:31] LABS: ALBUMIN 2.5 GM/DL (3.2-4.5); POTASSIUM 3.7 MMOL/L (3.6-5.0)
[2021-10-21 06:33] LABS: CALCIUM 8.1 MG/DL (8.5-10.1)
[2021-10-21 06:34] LABS: TOTAL PROTEIN 4.9 GM/DL (6.4-8.2)
[2021-10-21 06:36] LABS: BILIRUBIN,TOTAL 0.3 MG/DL (0.1-1.0)
[2021-10-21 06:38] LABS: CREATININE SERUM 0.84 MG/DL (0.60-1.30)
[2021-10-21 07:54] VITALS: BP 108/61
[2021-10-21] MEDS: RT-ALBUTEROL HFA 8.5 GM INHALER IH SCH (08:11)
--- NOTE | 2021-10-21 08:29 | Consultation ---
History of Present Illness History of Present Illness Patient Consulted On(trevin/time) 10/21/21 08:23 Date Seen by Provider: Oct 21, 2021 Time Seen by Provider: 08:20 Reason for Visit: Femur fracture s/p fall History of Present Illness Patient is a consult from due to telling them she had a vaginal ulcer. She reports that it has been there for the past month. She is recovering from femur fracture. Allergies and Home Medications Allergies Coded Allergies: No Known Drug Allergies (Unverified , 04/16/20) Patient Home Medication List Home Medication List Reviewed: Yes Hydroxyzine HCl (Hydroxyzine HCl) 25 Mg Tablet, 25 MG PO QID PRN for ANXIETY, (Reported) Entered as Reported by: BRIGID POLLOCK on 10/14/211054 Last Action: Converted Sertraline HCl (Sertraline HCl) 100 Mg Tablet, 200 MG PO DAILY, (Reported) Entered as Reported by: BRIGID POLLOCK on 10/14/211054 Last Action: Continued Trazodone HCl (Trazodone HCl) 150 Mg Tablet, 150 MG PO HS, (Reported) Entered as Reported by: APOORVA YOUNGBLOOD on 10/13/211956 Last Action: Reviewed Discontinued Medications Omeprazole (Omeprazole) 20 Mg Capsule.dr, 20 MG PO BID Discontinued Reason: No Longer Taking Prescribed by: FLOR CALDERON on 04/16/20921 Last Action: Discontinued Sucralfate (Carafate) 1 Gm Tablet, 1 GM PO QID Discontinued Reason: No Longer Taking Prescribed by: FLOR CALDERON on 04/16/20921 Last Action: Discontinued Past Yjpetvq-Lrjtvz-Ujtaem Hx Patient Social History Tobacco Use?: Yes Tobacco type used: Cigarettes Smoking Status: Former Smoker Use of E-Cig and/or Vaping dev: No Substance use?: No Alcohol Use?: No Pt feels they are or have been: No Immunizations Up To Date Influenza Vaccine Up-to-Date: Yes; Up-to-Date First/Initial COVID19 Vaccinat: SUMMER 2020 Second COVID19 Vaccination Trevin: SUMMER 2020 Third COVID19 Vaccination Date: SUMMER 2020 COVID19 Vaccine Maintenance Assistant: JEANMARIE Past Medical History COPD Currently Using CPAP: No Currently Using BIPAP: No Gastroesophageal Reflux Sleep Difficulties, Anxiety, Depression Family Medical History No Pertinent Family Hx Review of Systems-General Constitutional: see HPI EENTM: see HPI Respiratory: see HPI Cardiovascular: see HPI Gastrointestinal: see HPI All Other Systems Reviewed Negative Unless Noted: Yes Physical Exam-General Problems Physical Exam Vital Signs Vital Signs - First Documented 10/15/21 10/16/21 03:27 15:21 Temp 36.4 Pulse 77 Resp 20 B/P (MAP) 114/71 (85) Pulse Ox 95 O2 Delivery Room Air FiO2 21 Capillary Refill : Less Than 3 Seconds General Appearance: WD/WN, mild distress HEENT: PERRL/EOMI, normal ENT inspection Genital/Rectal: other (vaginal exam done of area patient is concerned about. there is age appropriate vaginal atrophy, with a vaginal fissure that is healing down the labia majora and minora. Labia minora is nearly complete obliterated.) Neurologic/Psychiatric: oriented x 3 Skin: normal color, warm/dry Assessment/Plan Assessment/Plan Admission Diagnosis/Plan Diagnosis: 60 yo female is vulvar fissure Painful vaginal lesion Plan: Patient informed of pathogenesis if this continues to bother her, patient to follow up in office as needed if continues to bother her. Admission Status: Inpatient Order (span 2 midnights) Clinical Quality Measures DVT/VTE Risk/Contraindication: Contraindications-Pharm: Other *list below* Other: SUE Esqueda DO Oct 21, 2021 08:29
[2021-10-21] MEDS: HYDROcodone/APAP 5 MG/325 MG (LORTAB) TAB PO PRN (09:13)
[2021-10-21] MEDS: KCL 20 MEQ TAB (K-DUR) PO SCH (09:13)
[2021-10-21] MEDS: SERTRALINE 100 MG (ZOLOFT) TAB PO SCH (09:13)
[2021-10-21] MEDS: NICOTINE 14 MG (NICODERM) PATCH TD SCH (09:14)
[2021-10-21] MEDS: PANTOPRAZOLE 40 MG (PROTONIX) TAB PO SCH (09:14)
[2021-10-21] MEDS: SENNOSIDES 8.6 MG (SENOKOT) TAB PO SCH (09:18)
[2021-10-21] MEDS: DOCUSATE SODIUM 100 MG (COLACE) CAP PO SCH (09:18)
--- NOTE | 2021-10-21 09:31 | Physical Therapy Daily Note ---
PT Daily Note-Current Subjective Patient presents laying in bed and agrees to participate in physical therapy. Mental Status Patient Orientation: Person, Place, Situation Transfers SCALE: Activities may be completed with or without assistive devices. 5-Gcqdnjrfxj-tgoksgt completes the activity by him/herself with no assistance from a helper. 5-Set-up or Clean-up Assistance-helper sets up or cleans up; patient completes activity. [place] assists only prior to or following the activity. 4-Supervision or Touching Assistance-helper provides verbal cues and/or touching/steadying and/or contact guard assistance as patient completes activity. Assistance may be provided throughout the activity or intermittently. 3-Partial/Moderate Assistance-helper does LESS THAN HALF the effort. [place] lifts, holds or supports trunk or limbs, but provides less than half the effort. 2-Substantial/Maximal Assistance-helper does MORE THAN HALF the effort. [place] lifts or holds trunk or limbs and provides more than half the effort. 5-Pwiitgheh-cljaii does ALL the effort. Patient does none of the effort to complete the activity. Or, the assistance of 2 or more helpers is required for the patient to complete the activity. If activity was not attempted, code reason: 7-Patient Refused. 9-Not Applicable-not attempted and the patient did not perform the activity before the current illness, exacerbation or injury. 10-Not Attempted due to Environmental Limitations-(lack of equipment, weather restraints, etc.). 88-Not Attempted due to Medical Conditions or Safety Concerns. Lying to Sitting/Side of Bed(Q: 6 Sit to Stand (QC): 4 Chair/Unf-zb-Uxjvt Xfer(QC): 4 Patient is independent for bed mobility and requires SBA for all other transfers. Weight Bearing Right Lower Extremity: Right Partial Weight Bearing Left Lower Extremity: Left Full Weight Bearing Gait Training Does the Patient Walk?: Yes Distance: 200' Walk 10 feet (QC): 4 Walk 50 ft with 2 Turns(QC): 4 Walk 150 ft (QC): 4 Gait Assistive Device: FWW Patient ambulated with FWW for 200' with SBA. Patient reports mild fatigue after ambulation. Patient ambulates with step to gait pattern to accommodate PWB status. Exercises Seated Therapy Exercises: Long arc quads Seated Reps: 15 Assessment Patient ambulated for 200' with FWW and performed bed mobility during therapy session. Patient completed LAQ with minimal difficulty. Patient reported fatigue after therapy session. Patient left post tx sitting in her chair with nurse craig agustin, phone, and all needs met. PT Short Term Goals Short Term Goals Time Frame: Oct 25, 2021 Roll Left & Right: 4 Sit to lyin Lying to sitting on side of be: 4 Sit to stand: 4 Chair/enk-yz-qpljd transfer: 4 Toilet transfer: 4 Walk 10 feet: 4 Walk 50 feet with two turns: 3 Walk 150 feet: 3 PT Half-Way Goals Half-Way Goals PT Tractor Trailer Mechanic Goals Time Frame: Nov 07, 2021 Roll Left & Right (QC): 6 Sit to Lying (QC): 6 Lying-Sitting on Side/Bed(QC): 6 Sit to Stand (QC): 6 Chair/Wlp-yr-Pukvx Xfer(QC): 6 Toilet Transfer (QC): 6 Car Transfer (QC): 6 Does the Patient Walk: Yes Walk 10 feet (QC): 5 Walk 50ft with 2 Turns (QC): 4 Walk 150 ft (QC): 4 PT Plan Problem List Problem List: Activity Tolerance, Functional Strength, Safety, Balance, Gait, Transfer, ROM Treatment/Plan Treatment Plan: Continue Plan of Care Treatment Plan: Bed Mobility, Education, Functional Activity Apple, Functional Strength, Group Therapy, Gait, Safety, Therapeutic Exercise, Transfers Treatment Duration: Nov 27, 2021 Frequency: 11 times per week Estimated Hrs Per Day: .25 hour per day Patient and/or Family Agrees t: Yes Time/GCodes Time In: 750 Time Out: 803 Total Billed Treatment Time: 13 Total Billed Treatment 1 Visit FA 13 min RADHA RASCON PT Oct 21, 2021 09:31
[2021-10-21] MEDS ORDERED: SUCR1TAB PO (10:39)
[2021-10-21] MEDS ORDERED: OXC5T PO (10:39)
[2021-10-21] MEDS ORDERED: CYAN-41 PO (10:39)
[2021-10-21] MEDS ORDERED: PANT40TA52 PO (10:39)
[2021-10-21] MEDS ORDERED: SNN187T PO (10:39)
--- NOTE | 2021-10-21 10:41 | D/C HH Face to Face Order ---
D/C Face to Face Orders Reconcile Patient Problems Problems Reviewed?: Yes Instructions for Patient Via Sara Aptela, Patient Instructions/FollowUp: PCP 1 week Physician to follow Patient: PCP Discharge Diet for Home: No Restrictions Patient Problems: Hip fracture Patient Data-Allergies,Ht & Wt Patient Allergies: Coded Allergies: No Known Drug Allergies (Unverified , 04/16/20) Home Health Need/Face to Face Date of Face to Face: Oct 21, 2021 Clinical Findings: Muscle weakness, Pain with ambulation I have seen Pt btoo-ij-[id number]: Yes Discharged To: Home Diagnosis/Conditions: Hip fracture Patient is Homebound due to: Sia fall risk due to instabilty, Pain w/ambulation Homebound Status Due to the above stated illness, injury or surgical procedure (medical condition or diagnosis) and associated clinical findings, the patient is homebound because of his/her inability to leave home except with aid of a supportive device and/or person AND leaving the home requires a considerable and taxing effort or is medically contraindicated. Pt req the following assistanc: Walker Home Health Nursing Orders Home Health Services Order: Nursing Services, [facility] Winder-Evaluate & Treat, Physical Therapy-Evaluate & Treat Home Health Infusion Therapy Line Start Date: Oct 16, 2021 Certify Stmt I certify that this patient is under my care and that I, a nurse practitioner or a physician; a digital assistant working with me, had a face to face encounter that - meets the physician face to face encounter requirements with this patient as dated. APOORVA YOUNGBLOOD DO Oct 21, 2021 10:41
--- NOTE | 2021-10-21 10:42 | Discharge Summary ---
Discharge Summary Hospital Course Was the Problem List Reviewed?: Yes Problems/Dx: (1) Closed right hip fracture Status: Acute Qualifiers: Qualified Codes: S72.001A - Fracture of unspecified part of neck of right femur, initial encounter for closed fracture (2) COVID-19 virus infection Status: Acute (3) Fall from standing Status: Acute Qualifiers: Qualified Codes: W19.XXXA - Unspecified fall, initial encounter (4) Hypokalemia Status: Acute (5) Anemia (6) Open wound of labium majus (7) Tobacco use Status: Chronic (8) Insomnia Status: Chronic (9) Dehydration Status: Resolved (10) Urinary tract infection Status: Resolved Hospital Course Date of Admission: Oct 13, 2021 at 13:42 Admission Diagnosis : Family Physician/Provider: [facility] Date of Discharge: 10/21/21 Discharge Diagnosis: Right hip fracture, COVID-19 asymptomatic, severe anemia requiring iron infusion and B12 injections Hospital Course: HOSPITAL COURSE: Sriram iBlly is a 60yoF with PMHx of COPD, Anxiety, Depression, and Insomnia who presented to the ED complaining of right hip pain after a fall on 10/11/21. She states she was ambulating without assistance in the restroom attempting to use the toilet when she fell backward, hitting her head on the wall, and landing on her right side. She denied loss of consciousness. She stated she was on the floor for several hours before being able to get herself up. Her neighbor brought her to the ED today (10/13/21) after patient was continuing to complain of right hip pain. In the ED, an xray of the right hip demonstrated an impacted subcapital femoral neck fracture. Orthopaedic surgery was consulted. Incidentally, the patient endorsed a history of COVID-19 exposure approximately one week ago. Additionally, the patient endorsed body aches, fatigue, weakness, shortness of breath, and cough for the past week. The patient tested positive for COVID-19 in the ED. During the course of her hospital admission, her femoral neck fracture was repaired by Dr. Wilson. During preparation for surgery, a labial ulcer was noted and a swab was taken which grew E. coli. At that time, she was being covered with Azithromycin and Ceftriaxone, per COVID protocol. She received a total of five days of antibiotics. Dr. Soler, OB-MEDICAL PARASITOLOGIST, evaluated the patients labial ulcer and felt that it would heal appropriately without any specific treatment. Regarding COVID-19, the patient maintained her oxygen saturation independently on room air without any requirement for supplemental oxygen or ventilation. While admitted, she also received Vitamin B12 and iron supplementation for her chronic anemia. She will discharge home with home health and a walker to help her recover her mobility following surgery. She will follow-up with her PCP in approximately 1 week. PITA HOLLIS Labs and Pending Lab Test: Laboratory Tests 10/21/21 06:00: White Blood Count 6.2, Red Blood Count 2.91L, Hemoglobin 7.6L, Hematocrit 24L, Mean Corpuscular Volume 83, Mean Corpuscular Hemoglobin 26, Mean Corpuscular Hemoglobin Concent 32, Red Cell Distribution Width 16.9H, Platelet Count 427H, Mean Platelet Volume 10.0, Immature Granulocyte % (Auto) 1, Neutrophils (%) (Auto) 66, Lymphocytes (%) (Auto) 19, Monocytes (%) (Auto) 8, Eosinophils (%) (Auto) 6, Basophils (%) (Auto) 0, Neutrophils # (Auto) 4.1, Lymphocytes # (Auto) 1.2, Monocytes # (Auto) 0.5, Eosinophils # (Auto) 0.4H, Basophils # (Auto) 0.0, Immature Granulocyte # (Auto) 0.0, Sodium Level 136, Potassium Level 3.7, Chloride Level 105, Carbon Dioxide Level 23, Anion Gap 8, Blood Urea Nitrogen 2L , Creatinine 0.84, Estimat Glomerular Filtration Rate 79, BUN/Creatinine Ratio 2, Glucose Level 82, Calcium Level 8.1L, Corrected Calcium 9.3, Total Bilirubin 0.3, Aspartate Amino Transf (AST/SGOT) 14, Alanine Aminotransferase (ALT/SGPT) 7, Alkaline Phosphatase 87, Total Protein 4.9L, Albumin 2.5L Microbiology 10/14/21 MRSA Screen - Final, Complete MRSA not isolated 10/13/21 Gram Stain - Final, Complete 10/13/21 Wound Culture - Final, Complete Usual Mixed Skin Corin Escherichia coli 10/13/21 Urine Culture - Final, Complete Strep anginosus Escherichia coli 10/13/21 Blood Culture - Final, Complete No growth Home Meds Active Vitamin B-12 (Cyanocobalamin (Vitamin B-12)) 1,000 Mcg Tablet 1,000 Mcg PO DAILY@0700 Pantoprazole Sodium 40 Mg Tablet.dr 40 Mg PO DAILY Sucralfate 1 Gm Tablet 1 Gm PO ACHS Senna Lax (Sennosides) 8.6 Mg Tablet 8.6 Mg PO BID Oxyir Tablet (Oxycodone HCl) 5 Mg Tab 5 Mg PO Q4H PRN Reported Sertraline HCl 100 Mg Tablet 200 Mg PO DAILY TAKES 2 (100MG) TABS Hydroxyzine HCl 25 Mg Tablet 25 Mg PO QID PRN Trazodone HCl 150 Mg Tablet 150 Mg PO HS Assessment/Pt Instructions PCP in 1 week Discharge Planning: <30 minutes discharge planning Discharge Instructions Discharge Diet: No Restrictions Discharge Physical Examination Vital Signs Vital Signs Date Time Temp Pulse Resp B/P (MAP) Pulse Ox O2 Delivery O2 Flow Rate FiO2 10/21/21 08:13 98 Room Air 10/21/21 07:54 36.8 62 16 108/61 (77) 10/19/21 23:37 21 General Appearance: No Apparent Distress, WD/WN, Chronically ill Allergies: Coded Allergies: No Known Drug Allergies (Unverified , 04/16/20) Discharge Summary Date of Admission Oct 13, 2021 at 13:42 Date of Discharge Discharge Date: Oct 21, 2021 Admission Diagnosis Assessment: Right hip fracture from fall COVID-19 no hypoxia Dehydration Plan: Right hip fracture repair tomorrow Benefits outweigh medical risks Discharge Diagnosis Evaluate vaginal ulcer (1) Closed right hip fracture Status: Acute Qualifiers: Qualified Codes: S72.001A - Fracture of unspecified part of neck of right femur, initial encounter for closed fracture (2) COVID-19 virus infection Status: Acute (3) Fall from standing Status: Acute Qualifiers: Qualified Codes: W19.XXXA - Unspecified fall, initial encounter (4) Hypokalemia Status: Acute (5) Anemia (6) Open wound of labium majus (7) Tobacco use Status: Chronic (8) Insomnia Status: Chronic (9) Dehydration Status: Resolved (10) Urinary tract infection Status: Resolved Clinical Quality Measures DVT/VTE Risk/Contraindication: Contraindications-Pharm: Other *list below* Other: operation APOORVA YOUNGBLOOD DO Oct 21, 2021 10:42
--- NOTE | 2021-10-21 10:52 | Progress Note - Ortho ---
Progress Note Subjective Date of Exam 10/21/21 Chief Complaint POD#7 Open reduction internal fixation impacted subcapital fracture right hip HPI/Events since last exam Mrs. Billy is 7 days postop and doing fairly well. She is still having some mild pain in the hip. She is up ambulating with a walker partial weightbearing. Review of Systems Reviewed and no additions or change Allergies: Coded Allergies: No Known Drug Allergies (Unverified , 04/16/20) Home Meds Active Scripts Cyanocobalamin (Vitamin B-12) (Vitamin B-12) 1,000 Mcg Tablet, 1000 MCG PO DAILY@0700, #30 TAB Prov:APOORVA YOUNGBLOOD DO 10/21/21 Pantoprazole Sodium (Pantoprazole Sodium) 40 Mg Tablet.dr, 40 MG PO DAILY, #30 TAB Prov:APOORVA YOUNGBLOOD DO 10/21/21 Sucralfate (Sucralfate) 1 Gm Tablet, 1 GM PO ACHS, #120 TAB Prov:APOORVA YOUNGBLOOD DO 10/21/21 Sennosides (Senna Lax) 8.6 Mg Tablet, 8.6 MG PO BID, #30 TAB Prov:APOORVA YOUNGBLOOD DO 10/21/21 Oxycodone Hcl (OXYIR TABLET) 5 Mg Tab, 5 MG PO Q4H PRN for PAIN-SEVERE (8-10), #30 TAB Prov:APOORVA YOUNGBLOOD DO 10/21/21 Reported Medications Sertraline HCl (Sertraline HCl) 100 Mg Tablet, 200 MG PO DAILY, TAB TAKES 2 (100MG) TABS 10/14/21 Hydroxyzine HCl (Hydroxyzine HCl) 25 Mg Tablet, 25 MG PO QID PRN for ANXIETY, TAB 10/14/21 Trazodone HCl (Trazodone HCl) 150 Mg Tablet, 150 MG PO HS, TAB 10/13/21 Discontinued Scripts Sucralfate (Carafate) 1 Gm Tablet, 1 GM PO QID, #120 TAB Crush or dissolve and mix with 5-10 ML water to make a slurry. Take 30 minutes before meals and bedtime Prov:FLOR RTUJILLO MD 04/16/20 Omeprazole (Omeprazole) 20 Mg Capsule.dr, 20 MG PO BID, #60 CAP 2 Refills Prov:FLOR TRUJILLO MD 04/16/20 Objective Exam Constitutional: [] HEENT: [] Neck: [] Cardiovascular: [] Respiratory: [] Gastrointestinal: [] Genitourinary: [] Skin: [] Back/Spine: [] Extremities: [Dressing is intact. No thigh swelling. No calf tenderness negative Homans. Mild pain right hip with gentle range of motion. Able to dorsiflex and plantarflex foot and ankle without weakness or pain. Normal sensation of the foot and toes. Good capillary refill. Equal pulses.] Neurologic: [] Psychiatric: [] Hematologic/lymphatic/immunologic: [] Vital Signs Vital Signs Date Time Temp Pulse Resp B/P (MAP) Pulse Ox O2 Delivery O2 Flow Rate FiO2 10/21/21 08:13 98 Room Air 10/21/21 07:54 36.8 62 16 108/61 (77) 95 Room Air 10/20/21 23:47 36.6 62 18 96/55 (69) 97 Room Air 10/20/21 20:00 Room Air 10/20/21 15:55 36.4 58 14 112/60 (77) 97 Room Air I & O 10/21/21 07:00 Intake Total 1580 ml Balance 1580 ml Lab Results Laboratory Tests 10/21/21 06:00: White Blood Count 6.2, Red Blood Count 2.91L, Hemoglobin 7.6L, Hematocrit 24L, Mean Corpuscular Volume 83, Mean Corpuscular Hemoglobin 26, Mean Corpuscular Hemoglobin Concent 32, Red Cell Distribution Width 16.9H, Platelet Count 427H, Mean Platelet Volume 10.0, Immature Granulocyte % (Auto) 1, Neutrophils (%) (Auto) 66, Lymphocytes (%) (Auto) 19, Monocytes (%) (Auto) 8, Eosinophils (%) (Auto) 6, Basophils (%) (Auto) 0, Neutrophils # (Auto) 4.1, Lymphocytes # (Auto) 1.2, Monocytes # (Auto) 0.5, Eosinophils # (Auto) 0.4H, Basophils # (Auto) 0.0, Immature Granulocyte # (Auto) 0.0, Sodium Level 136, Potassium Level 3.7, Chloride Level 105, Carbon Dioxide Level 23, Anion Gap 8, Blood Urea Nitrogen 2L , Creatinine 0.84, Estimat Glomerular Filtration Rate 79, BUN/Creatinine Ratio 2, Glucose Level 82, Calcium Level 8.1L, Corrected Calcium 9.3, Total Bilirubin 0.3, Aspartate Amino Transf (AST/SGOT) 14, Alanine Aminotransferase (ALT/SGPT) 7, Alkaline Phosphatase 87, Total Protein 4.9L, Albumin 2.5L Microbiology 10/14/21 MRSA Screen - Final, Complete MRSA not isolated 10/13/21 Gram Stain - Final, Complete 10/13/21 Wound Culture - Final, Complete Usual Mixed Skin Corin Escherichia coli 10/13/21 Urine Culture - Final, Complete Strep anginosus Escherichia coli 10/13/21 Blood Culture - Final, Complete No growth Assessment and Plan Assessment Doing well 1 week postop Problem List Unchanged Plan Continue with walker ambulation partial weightbearing on the right. I did order an x-ray this morning which has not been done yet. Final Diagonsis Impacted subcapital fracture right hip status post open reduction internal fixation Level of the visit: Level 3 Clinical Quality Measures DVT/VTE Risk/Contraindication: Contraindications-Pharm: Other *list below* Other: operation MORENO PARMAR MD Oct 21, 2021 10:52
--- NOTE | 2021-10-21 11:07 | Progress Note ---
BUNNYPITA 10/21/21 1107: Progress Note HOSPITAL COURSE: Sriram Billy is a 60yoF with PMHx of COPD, Anxiety, Depression, and Insomnia who presented to the ED complaining of right hip pain after a fall on 10/11/21. She states she was ambulating without assistance in the restroom attempting to use the toilet when she fell backward, hitting her head on the wall, and landing on her right side. She denied loss of consciousness. She stated she was on the floor for several hours before being able to get herself up. Her neighbor brought her to the ED today (10/13/21) after patient was continuing to complain of right hip pain. In the ED, an xray of the right hip demonstrated an impacted subcapital femoral neck fracture. Orthopaedic surgery was consulted. Incidentally, the patient endorsed a history of COVID-19 exposure approximately one week ago. Additionally, the patient endorsed body aches, fatigue, weakness, shortness of breath, and cough for the past week. The patient tested positive for COVID-19 in the ED. During the course of her hospital admission, her femoral neck fracture was repaired by Dr. Wilson. During preparation for surgery, a labial ulcer was noted and a swab was taken which grew E. coli. At that time, she was being covered with Azithromycin and Ceftriaxone, per COVID protocol. She received a total of five days of antibiotics. Dr. Soler, OB-HUMAN CAPITAL MANAGER, evaluated the patients labial ulcer and felt that it would heal appropriately without any specific treatment. Regarding COVID-19, the patient maintained her oxygen saturation independently on room air without any requirement for supplemental oxygen or ventilation. While admitted, she also received Vitamin B12 and iron supplementation for her chronic anemia. She will discharge home with home health and a walker to help her recover her mobility following surgery. She will follow-up with her PCP in approximately 1 week. SARA YOUNGBLOOD DO 10/22/21 0517: Supervisory-Addendum Brief Verification & Attestation Participated in pt care: history, MDM, physical Personally performed: exam, history, MDM, supervision of care Care discussed with: Medical Student Procedures: n/a Results interpretation: Verified all documentation Verification and Attestation of Medical Student E/M Service A medical student performed and documented this service in my presence. I reviewed and verified all information documented by the medical student and made modifications to such information, when appropriate. I personally performed the physical exam and medical decision making. Sara Youngblood, Oct 22, 2021,05:17 PITA HOLLIS Oct 21, 2021 11:07 SARA YOUNGBLOOD DO Oct 22, 2021 05:17
--- NOTE | 2021-10-21 12:58 | Diagnostic Imaging Report ---
INDICATION: Postop right hip. TIME OF EXAM: 11:12 AM. FINDINGS: Two views of the right hip show hardware fixating the right femoral neck. The femoroacetabular alignment is normal. Hardware is intact. The rami appear intact. IMPRESSION: Satisfactory postop appearance to the right hip. Dictated by: Dictated on workstation # [id number]
[2021-10-21 13:32] VITALS: BP 108/61
== END 2021-10-21 13:15 | disposition home health service (06) | DRG 981 ==
LOC: EDUNIT# 11:24 → ER 11:25 → 4TH 13:42
PROVIDERS: ADMIT Internal Medicine; ATTEND Internal Medicine
PROC: 8E0ZXY6 Isolation (ICD-10-PCS; 2021-10-13)
PROC: 0QS604Z Reposition Right Upper Femur with Internal Fixation Device, Open Approach (ICD-10-PCS; principal; 2021-10-14 12:53)
DX: U07.1 COVID-19 (principal); S72.011A Unspecified intracapsular fracture of right femur, initial encounter for closed fracture; J12.82 Pneumonia due to coronavirus disease 2019; N76.4 Abscess of vulva; N39.0 Urinary tract infection, site not specified; E86.0 Dehydration; D64.9 Anemia, unspecified; F17.210 Nicotine dependence, cigarettes, uncomplicated; Z20.822 Contact with and (suspected) exposure to COVID-19; J44.9 Chronic obstructive pulmonary disease, unspecified; F41.9 Anxiety disorder, unspecified; F32.A Depression, unspecified; G47.00 Insomnia, unspecified; D75.839 Thrombocytosis, unspecified; E87.6 Hypokalemia; K21.9 Gastro-esophageal reflux disease without esophagitis; B96.20 Unspecified Escherichia coli [E. coli] as the cause of diseases classified elsewhere; K59.00 Constipation, unspecified; W18.30XA Fall on same level, unspecified, initial encounter
CPT/HCPCS: 36410; 36415; 51702; 70450; 71045; 71260; 72125; 72128; 72131; 73501; 73502; 74177; 76000; 76937; 80053; 80306; 81000; 82550; 82553; 82607; 83540; 83605; 83615; 83735; 83880; 84145; 84484; 85007; 85025; 85027; 85379; 85610; 85652; 85730; 86141; 87040; 87070; 87077; 87081; 87088; 87186; 87205; 87636; 93005; 93041; 93970; 94640; 94760; 96361; 96374

== ENCOUNTER 2021-12-01 15:11 | Inpatient (IN) | payer MEDICAID ==
[~2021-12-01] VITALS: Ht 170 cm; Wt 70.2 kg
[~2021-12-01 15:11] MED LIST changes: +CYAN-41 PO; +HYDR-700 PO; +OXC5T PO; +PANT40TA52 PO; +SERT-414 PO; +SNN187T PO; +SUCR1TAB PO; +TRAZ150T72 PO
--- NOTE | 2021-12-01 15:27 | ED General ---
General Chief Complaint: General Problems/Pain Stated Complaint: WEAKNESS Source of Information: Patient, EMS Exam Limitations: No Limitations History of Present Illness Date Seen by Provider: Dec 01, 2021 Time Seen by Provider: 15:08 Initial Comments Patient is a 61-year-old female who presents to the emergency room by ambulance from home. She was referred by mental health services for failure to thrive, unlivable living conditions. Patient tells me that she has a history of mental health issues. She lives alone. She has a nurse that comes biweekly. She is quite cachectic, disheveled and dirty. She complains of pain in the perineal area, unsure length of time. She states she has very painful bowel movements and states that the whole area is very uncomfortable. She denies fevers. No shortness of breath or chest pain. She does smoke cigarettes. Denies abdominal pain, nausea or vomiting. Tells me that she last ate a TV dinner last night. She last showered a few days ago. EMS reported that the house was unkempt but not horrible. Patient denies any known fevers. Only takes mental health medications. All other review of systems reviewed and negative except as stated Associated Systoms: Other (pelvic pain) Allergies and Home Medications Allergies Coded Allergies: No Known Drug Allergies (Unverified , 04/16/20) Patient Home Medication List Home Medication List Reviewed: Yes Cyanocobalamin (Vitamin B-12) (Vitamin B-12) 1,000 Mcg Tablet, 1,000 MCG PO DAILY@0700 Prescribed by: APOORVA YOUNGBLOOD on 10/21/21 1039 Hydroxyzine HCl (Hydroxyzine HCl) 25 Mg Tablet, 25 MG PO QID PRN for ANXIETY, (Reported) Entered as Reported by: BRIGID POLLOCK on 10/14/21 1055 Oxycodone Hcl (Oxyir Tablet) 5 Mg Tab, 5 MG PO Q4H PRN for PAIN-SEVERE (8-10) Prescribed by: APOORVA YOUNGBLOOD on 10/21/21 1039 Pantoprazole Sodium (Pantoprazole Sodium) 40 Mg Tablet.dr, 40 MG PO DAILY Prescribed by: APOORVA YOUNGBLOOD on 10/21/21 1039 Sennosides (Senna Lax) 8.6 Mg Tablet, 8.6 MG PO BID Prescribed by: APOORVA YOUNGBLOOD on 10/21/21 1039 Sertraline HCl (Sertraline HCl) 100 Mg Tablet, 200 MG PO DAILY, (Reported) Entered as Reported by: BRIGID POLLOCK on 10/14/21 1055 Sucralfate (Sucralfate) 1 Gm Tablet, 1 GM PO ACHS Prescribed by: APOORVA YOUNGBLOOD on 10/21/21 1039 Trazodone HCl (Trazodone HCl) 150 Mg Tablet, 150 MG PO HS, (Reported) Entered as Reported by: APOORVA YOUNGBLOOD on 10/13/211956 Review of Systems Review of Systems Constitutional: see HPI EENTM: no symptoms reported Respiratory: no symptoms reported Cardiovascular: no symptoms reported Gastrointestinal: no symptoms reported Genitourinary: pain : No Musculoskeletal: no symptoms reported Skin: other (sores on vagina) Psychiatric/Neurological: See HPI, Anxiety, Depressed All Other Systems Reviewed Negative Unless Noted: Yes Past Nswpwoc-Shgoyi-Qozycw Hx Immunizations Up To Date First/Initial COVID19 Vaccinat: SUMMER 2020 Second COVID19 Vaccination Trevin: SUMMER 2020 Third COVID19 Vaccination Date: SUMMER 2020 Past Medical History Surgeries: No Respiratory: No (DENIES , BUT IS INTERMEDIATE SMOKER) COPD Currently Using CPAP: No Currently Using BIPAP: No Cardiac: No Neurological: No Genitourinary: No Gastrointestinal: No Gastroesophageal Reflux Musculoskeletal: Yes Scoliosis, Chronic Back Pain Endocrine: No HEENT: No Cancer: No Psychosocial: Yes Sleep Difficulties, Anxiety, Depression Integumentary: No Blood Disorders: No Family Medical History No Pertinent Family Hx SOCIAL HISTORY: -SMOKES 1/2 PPD -ETOH--HX OF ABUSE, CLAIMS NONE X 2 YEARS ON 10/13/21 -DRUGS--DENIES USE Physical Exam Vital Signs Vital Signs - First Documented 12/01/21 15:15 Temp 36.5 Pulse 87 Resp 16 B/P (MAP) 92/65 (74) Pulse Ox 100 O2 Delivery Room Air Capillary Refill : Height, Weight, BMI Height: '" Weight: lbs. oz. kg; 20.75 BMI Method: General Appearance: No Apparent Distress, Chronically ill, Cachetic Eyes: Bilateral Eye Normal Inspection, Bilateral Eye PERRL, Bilateral Eye EOMI HEENT: PERRL/EOMI, Other (very dry oral mucosa; edentulous) Neck: Normal Inspection Respiratory: Lungs Clear, Normal Breath Sounds, No Accessory Muscle Use, No Respiratory Distress Cardiovascular: Regular Rate, Rhythm, Normal Peripheral Pulses Gastrointestinal: Non Tender, Soft Rectal: Other (fleshy mass at anus, actively bleeding - does not appear to be a hemorrhoid) Genital/Rectal: Other (patient has significant inflammation/excoriation over the labia with swelling left labia majora, induration posterior labia majora with induration over the perineum that is exquisitely tender. fleshy mass at the anus) Extremity: Normal Inspection, Normal Range of Motion, No Pedal Edema Neurologic/Psychiatric: Alert, Oriented x3, No Motor/Sensory Deficits, Normal Mood/Affect, global clinical leader II-XII Norm as Tested Skin: Normal Color, Warm/Dry Focused Exam Lactate Level 12/01/21 15:46: Lactic Acid Level 2.57*H Lactic Acid Level Laboratory Tests Test 12/01/21 15:46 Lactic Acid Level 2.57 MMOL/L (0.50-2.00) *H Progress/Results/Core Measures Suspected Sepsis SIRS Temperature: Pulse: Respiratory Rate: Laboratory Tests 12/01/21 15:46: White Blood Count 11.9H Blood Pressure / Mean: 12/01/21 15:46: Lactic Acid Level 2.57*H Laboratory Tests 12/01/21 15:46: Creatinine 0.82, INR Comment 1.2, Platelet Count 412H, Total Bilirubin 0.6 Results/Orders Lab Results Laboratory Tests Test 12/01/21 15:26 12/01/21 15:46 Range/Units Urine Color YELLOW Urine Clarity SL CLOUDY Urine pH 6.0 5-9 Urine Specific Sunshine 1.025 H 1.016-1.022 Urine Protein 1+ H NEGATIVE Urine Glucose (UA) NEGATIVE NEGATIVE Urine Ketones NEGATIVE NEGATIVE Urine Nitrite POSITIVE H NEGATIVE Urine Bilirubin 2+ H NEGATIVE Urine Urobilinogen 1.0 < = 1.0 MG/DL Urine Leukocyte Esterase TRACE H NEGATIVE Urine RBC (Auto) NEGATIVE NEGATIVE Urine RBC NONE /HPF Urine WBC RARE /HPF Urine Crystals NONE /LPF Urine Bacteria LARGE H /HPF Urine Casts NONE /LPF Urine Mucus NEGATIVE /LPF Urine Culture Indicated CULTURE PENDING White Blood Count 11.9 H 4.3-11.0 10^3/uL Red Blood Count 3.56 L 3.80-5.11 10^6/uL Hemoglobin 9.5 L 11.5-16.0 g/dL Hematocrit 30 L 35-52 % Mean Corpuscular Volume 84 80-99 fL Mean Corpuscular Hemoglobin 27 25-34 pg Mean Corpuscular Hemoglobin Concent 32 32-36 g/dL Red Cell Distribution Width 17.2 H 10.0-14.5 % Platelet Count 412 H 130-400 10^3/uL Mean Platelet Volume 10.4 9.0-12.2 fL Immature Granulocyte % (Auto) 1 % Neutrophils (%) (Auto) 78 H 42-75 % Lymphocytes (%) (Auto) 13 12-44 % Monocytes (%) (Auto) 8 0-12 % Eosinophils (%) (Auto) 1 0-10 % Basophils (%) (Auto) 0 0-10 % Neutrophils # (Auto) 9.2 H 1.8-7.8 10^3/uL Lymphocytes # (Auto) 1.6 1.0-4.0 10^3/uL Monocytes # (Auto) 0.9 0.0-1.0 10^3/uL Eosinophils # (Auto) 0.1 0.0-0.3 10^3/uL Basophils # (Auto) 0.0 0.0-0.1 10^3/uL Immature Granulocyte # (Auto) 0.1 0.0-0.1 10^3/uL Prothrombin Time 15.4 H 12.2-14.7 SEC INR Comment 1.2 0.8-1.4 Activated Partial Thromboplast Time 33 24-35 SEC Sodium Level 134 L 135-145 MMOL/L Potassium Level 2.7 L 3.6-5.0 MMOL/L Chloride Level 96 L 98-107 MMOL/L Carbon Dioxide Level 20 L 21-32 MMOL/L Anion Gap 18 H 5-14 MMOL/L Blood Urea Nitrogen 13 7-18 MG/DL Creatinine 0.82 0.60-1.30 MG/DL Estimat Glomerular Filtration Rate 81 BUN/Creatinine Ratio 16 Glucose Level 95 70-105 MG/DL Lactic Acid Level 2.57 *H 0.50-2.00 MMOL/L Calcium Level 8.1 L 8.5-10.1 MG/DL Corrected Calcium 9.0 8.5-10.1 MG/DL Total Bilirubin 0.6 0.1-1.0 MG/DL Aspartate Amino Transf (AST/SGOT) 21 5-34 U/L Alanine Aminotransferase (ALT/SGPT) 11 0-55 U/L Alkaline Phosphatase 115 40-136 U/L Total Protein 5.7 L 6.4-8.2 GM/DL Albumin 2.9 L 3.2-4.5 GM/DL My Orders Orders - CHITO CHIANG MD Cbc With Automated Diff (12/01/21 15:22) Comprehensive Metabolic Panel (12/01/21 15:22) Blood Culture (12/01/21 15:22) Sputum Culture (12/01/21 15:22) Urinalysis (12/01/21 15:22) Urine Culture (12/01/21 15:22) Protime With Inr (12/01/21 15:22) Partial Thromboplastin Time (12/01/21 15:22) Chest 1 View, Ap/Pa Only (12/01/21 15:22) Ed Iv/Invasive Line Start (12/01/21 15:22) Ed Iv/Invasive Line Start (12/01/21 15:22) Vital Signs Adult Sepsis Patie Q15M (12/01/21 15:22) O2 (12/01/21 15:22) Remove Rings In Anticipation O (12/01/21 15:22) Lactic Acid Analyzer (12/01/21 15:22) Catheter(Urinary) Care .0300, 1500 (12/01/21 15:27) Catheter(Urinary) Insert & Ass 03,15 (12/01/21 15:27) Fentanyl Inj (Sublimaze Injection) (12/01/21 16:00) Ct Abdomen/Pelvis W (12/01/21 16:22) Ns Iv 1000 Ml (Sodium Chloride 0.9%) (12/01/21 16:30) Ceftriaxone 1 Gm Pre-Mix (Rocephin 1 Gm (12/01/21 16:45) Iohexol Injection (Omnipaque 350 Mg/Ml 1 (12/01/21 17:15) Ns (Ivpb) (Sodium Chloride 0.9% Ivpb Bag (12/01/21 17:15) Potassium Cl 10meq/50ml Ivpb (Kcl 10 Meq (12/01/21 17:45) Medications Given in ED Current Medications Medications Dose Ordered Sig/Catherine Route Start Time Stop Time Status Last Admin Dose Admin Ceftriaxone Sodium/Dextrose 50 ml @ 100 mls/hr ONCE ONCE IV 12/01/21 16:45 12/01/21 17:14 DC 12/01/21 16:56 100 MLS/HR Fentanyl Citrate 25 mcg ONCE ONCE IVP 12/01/21 16:00 12/01/21 16:01 DC 12/01/21 16:04 25 MCG Iohexol 100 ml ONCE ONCE IV 12/01/21 17:15 12/01/21 17:16 DC 12/01/21 17:24 72 ML Sodium Chloride 100 ml ONCE ONCE IV 12/01/21 17:15 12/01/21 17:16 DC 12/01/21 17:24 80 ML Vital Signs/I&O 12/01/21 12/01/21 15:15 16:04 Temp 36.5 36.5 Pulse 87 Resp 16 B/P (MAP) 92/65 (74) Pulse Ox 100 O2 Delivery Room Air Capillary Refill : Progress Note : Time: 17:42 Progress Note Reevaluated patient, a closer look at her rectum reveals a fleshy mass that is protruding is actively bleeding a dark red blood. She has stage I decubitus ulcers over the buttocks as well as the described erythema and induration and swelling over the perineum and labia majora on the left. She still has some pain. Blood pressure is systolic greater than 100 at this time. She is not tachycardic. Appears to be comfortable, awake alert oriented. Potassium supplementation is ordered. Rocephin is ordered for her urine. Dr. Donnelly is going to come down to evaluate the mass, and bleeding. Will add to antibiotics at his direction. Anticipate inpatient admission. Departure Communication (Admissions) Time/Spoke to Admitting Phy: 17:[address] Youngblood Time/Spoke to Consulting Phy: 17:[address] Donnelly - will be down to see Impression Primary Impression: Perineal abscess Additional Impressions: Urinary tract infection Qualified Codes: N39.0 - Urinary tract infection, site not specified Hypokalemia Sepsis Qualified Codes: A41.9 - Sepsis, unspecified organism Failure to thrive in adult Disposition: ADMITTED INPATIENT Condition: Stable Admissions Decision to Admit Reason: Admit from ER (General) Decision to Admit/Date: Dec 01, 2021 Time/Decision to Admit Time: 17:39 Departure-Patient Inst. Referrals: [facility] (PCP/Family) Primary Care Physician CHITO CHIANG MD Dec 01, 2021 15:27
[2021-12-01 15:42] LABS: CLARITY,URINE SL CLOUDY; COLOR,URINE YELLOW; GLUCOSE, URINE (UA) NEGATIVE (NEGATIVE); KETONES,URINE NEGATIVE (NEGATIVE); LEUKOCYTE ESTERASE ,URINE TRACE (NEGATIVE); NITRITE,URINE POSITIVE (NEGATIVE); PROTEIN,URINE 1+ (NEGATIVE)
[2021-12-01 15:57] LABS: BILIRUBIN,URINE 2+ (NEGATIVE)
[2021-12-01 15:58] LABS: BACTERIA,URINE LARGE /HPF; WBC,URINE RARE /HPF
[2021-12-01] MEDS ORDERED: fentaNYL INJ 100 MCG/2 ML AMP IVP ONE (16:00)
[2021-12-01 16:01] LABS: BASOPHILS % (AUTO) 0 % (0-10); EOSINOPHILS # (AUTO) 0.1 10^3/uL (0.0-0.3); EOSINOPHILS % (AUTO) 1 % (0-10); HEMATOCRIT 30 % (35-52); HEMOGLOBIN 9.5 g/dL (11.5-16.0); LYMPHOCYTES # (AUTO) 1.6 10^3/uL (1.0-4.0); LYMPHOCYTES % (AUTO) 13 % (12-44); MEAN CORPUSCULAR HEMOGLOBIN 27 pg (25-34); MEAN CORPUSCULAR HGB CONC 32 g/dL (32-36); MEAN CORPUSCULAR VOLUME 84 fL (80-99); MEAN PLATELET VOLUME 10.4 fL (9.0-12.2); MONOCYTES # (AUTO) 0.9 10^3/uL (0.0-1.0); MONOCYTES % (AUTO) 8 % (0-12); NEUTROPHILS # (AUTO) 9.2 10^3/uL (1.8-7.8); NEUTROPHILS % (AUTO) 78 % (42-75); PLATELET COUNT 412 10^3/uL (130-400); WHITE BLOOD COUNT 11.9 10^3/uL (4.3-11.0)
[2021-12-01 16:14] LABS: ALBUMIN 2.9 GM/DL (3.2-4.5); POTASSIUM 2.7 MMOL/L (3.6-5.0)
[2021-12-01 16:15] LABS: CALCIUM 8.1 MG/DL (8.5-10.1)
[2021-12-01 16:16] LABS: TOTAL PROTEIN 5.7 GM/DL (6.4-8.2)
[2021-12-01 16:18] LABS: BILIRUBIN,TOTAL 0.6 MG/DL (0.1-1.0)
[2021-12-01 16:20] LABS: CREATININE SERUM 0.82 MG/DL (0.60-1.30)
[2021-12-01 16:28] LABS: INR 1.2 (0.8-1.4); PROTHROMBIN TIME PATIENT 15.4 SEC (12.2-14.7)
--- NOTE | 2021-12-01 16:28 | Diagnostic Imaging Report ---
INDICATION: Weakness and loss of appetite. COMPARISON: 10/13/2021. FINDINGS: Single AP view of the chest reveals bilateral air trapping. There is no evidence of pneumothorax or consolidation. Calcified granuloma is seen in the right base. IMPRESSION: Background air trapping likely due to emphysema without acute abnormality identified. Dictated by: Dictated on workstation # [id number]
[2021-12-01] MEDS ORDERED: NS IV 1000 ML 1,000 ML IV SCH (16:30)
[2021-12-01] MEDS ORDERED: cefTRIAXone 1 GM PRE-MIX 50 ML IV ONE (16:45)
[2021-12-01] MEDS ORDERED: IOHEXOL 350 MG/ML 100 ML (OMNIPAQUE 350) VIAL IV ONE (17:15)
[2021-12-01] MEDS ORDERED: NS 100 ML (IVPB) BAG IV ONE (17:15)
--- NOTE | 2021-12-01 17:42 | Diagnostic Imaging Report ---
PROCEDURE: CT abdomen and pelvis with contrast. TECHNIQUE: Multiple contiguous axial images were obtained through the abdomen and pelvis after administration of intravenous contrast. Auto Exposure Controls were utilized during the CT exam to meet ALARA standards for radiation dose reduction. All CT scans use one or more of the following dose optimizing techniques: automated exposure control, MA and/or KvP adjustment based on patient size and exam type or iterative reconstruction. INDICATION: Abscess, pain. COMPARISON: October 13, 2021. FINDINGS: Calcified granuloma within the right middle lobe. The lungs are otherwise clear. Large hiatal hernia. Hypodensity within the liver adjacent to the falciform ligament and gallbladder fossa is again identified. The liver is otherwise unremarkable. The spleen is unremarkable. The adrenal glands are unremarkable. The pancreas is unremarkable. The gallbladder is at the upper limits of normal in size without adjacent inflammatory stranding. Advanced vascular calcifications within the abdominal aorta and its branch vessels without aneurysmal dilatation of the abdominal aorta. Retroaortic left renal vein. Rodriguez catheter is present within the urinary bladder, though significant amount of gas and fluid remains within the urinary bladder. 2.8 x 2.0 cm irregular gas and fluid collection is identified within the perineum just to the left of midline with associated hyperenhancement. This is seen extending along the left aspect of the rectum. This appears relatively similar to the prior examination. Diffuse mural thickening of loops of the large and small bowel is identified, which appears to be a change from the prior examination. No evidence of bowel obstruction. No abnormal adnexal mass lesion. No new adenopathy. No significant free fluid or free air. New postsurgical changes are identified associated with the proximal right femur. No new acute osseous abnormality. IMPRESSION: Persistent perineal/left perirectal gas and fluid collection remains concerning for a perirectal/perineal abscess. Overall appearance is relatively similar to the prior examination. Neoplasm at this location not excluded. New mural thickening involving the large and small bowel, felt to relate to underlying enterocolitis. There is however no evidence of bowel obstruction. Gas and fluid within the urinary bladder though a Rodriguez catheter is present within the urinary bladder. Recommend clinical correlation for functionality of this Rodriguez catheter. Large hiatal hernia. Fatty infiltration of the liver. Additional findings as above, including interval postsurgical changes involving the proximal right femur. Dictated by: Dictated on workstation # [id number]
[2021-12-01] MEDS ORDERED: POTASSIUM CL 10MEQ/50ML IVPB 50 ML IV ONE (17:45)
[2021-12-01] MEDS ORDERED: diphenhydrAMINE 25 MG TAB (BENADRYL) PO PRN (18:15)
[2021-12-01] MEDS ORDERED: ANTACID SUSP 30 ML UDC (MYLANTA) PO PRN (18:15)
[2021-12-01] MEDS ORDERED: diphenhydrAMINE 50 MG/ML INJ (BENADRYL) IVP PRN (18:15)
[2021-12-01] MEDS ORDERED: BISACODYL 10 MG SUPP (DULCOLAX) PR PRN (18:15)
[2021-12-01] MEDS ORDERED: polyethylene glycoL POWDER 17 GM (MIRALAX) PACK PO PRN (18:15)
[2021-12-01] MEDS ORDERED: LACTULOSE SYRUP 10GM/15ML (ENULOSE) 30ML UDC PO PRN (18:15)
[2021-12-01] MEDS ORDERED: ONDANSETRON 4 MG (ZOFRAN) ORAL DISSOLVE TAB PO PRN (18:15)
[2021-12-01] MEDS ORDERED: CALCIUM CARBONATE 500 MG (TUMS) TAB.CHEW PO PRN (18:15)
[2021-12-01] MEDS ORDERED: MILK OF MAGNESIA 400 MG/5 ML 30 ML UDC PO PRN (18:15)
[2021-12-01 18:30] VITALS: BP 92/65
[2021-12-01] MEDS ORDERED: RT-ALBUTEROL/IPRATROPIUM 3 ML (DUONEB) VIAL INH PRN (18:45)
[2021-12-01] MEDS ORDERED: PIPERACILLIN SODIUM/TAZOBACTAM 4.5 GM in NS (IVPB) 100 ML IV NR (19:00)
--- NOTE | 2021-12-01 19:05 | Consultation - Surgery ---
History of Present Illness History of Present Illness Patient Consulted On(michelle/time) 12/01/21 19:00 Time Seen by Provider: 18:03 History of Present Illness Surgery asked to consult regarding rectal mass and labial abscess. HPI per ED: Patient is a 61-year-old female who presents to the emergency room by ambulance from home. She was referred by mental health services for failure to thrive, unlivable living conditions. Patient tells me that she has a history of mental health issues. She lives alone. She has a nurse that comes biweekly. She is quite cachectic, disheveled and dirty. She complains of pain in the perineal area, unsure length of time. She states she has very painful bowel movements and states that the whole area is very uncomfortable. She denies fevers. No shortness of breath or chest pain. She does smoke cigarettes. Denies abdominal pain, nausea or vomiting. Tells me that she last ate a TV dinner last night. She last showered a few days ago. EMS reported that the house was unkempt but not horrible. Patient denies any known fevers. Only takes mental health medications. When I spoke to pt she had just gotten off the phone with family member. Her m ain complaint is rectal/perineal pain with bleeding and painful BMs. Pain is constant but worse with pressure in the area and going to the bathroom. Denied fever or chills at home. She actually recent got out of [address] secondary to fall and Femur Fx with repair. Allergies and Home Medications Allergies Coded Allergies: No Known Drug Allergies (Unverified , 04/16/20) Patient Home Medication List Home Medication List Reviewed: Yes Cyanocobalamin (Vitamin B-12) (Vitamin B-12) 1,000 Mcg Tablet, 1,000 MCG PO DAILY@0700 Prescribed by: APOORVA YOUNGBLOOD on 10/21/21 1039 Hydroxyzine HCl (Hydroxyzine HCl) 25 Mg Tablet, 25 MG PO QID PRN for ANXIETY, (Reported) Entered as Reported by: BRIGID POLLOCK on 10/14/21 1055 Oxycodone Hcl (Oxyir Tablet) 5 Mg Tab, 5 MG PO Q4H PRN for PAIN-SEVERE (8-10) Prescribed by: APOORVA YOUNGBLOOD on 10/21/21 1039 Pantoprazole Sodium (Pantoprazole Sodium) 40 Mg Tablet.dr, 40 MG PO DAILY Prescribed by: APOORVA YOUNGBLOOD on 10/21/21 1039 Sennosides (Senna Lax) 8.6 Mg Tablet, 8.6 MG PO BID Prescribed by: APOORVA YOUNGBLOOD on 10/21/21 1039 Sertraline HCl (Sertraline HCl) 100 Mg Tablet, 200 MG PO DAILY, (Reported) Entered as Reported by: BRIGID POLLOCK on 10/14/21 1055 Sucralfate (Sucralfate) 1 Gm Tablet, 1 GM PO ACHS Prescribed by: APOORVA YOUNGBLOOD on 10/21/21 1039 Trazodone HCl (Trazodone HCl) 150 Mg Tablet, 150 MG PO HS, (Reported) Entered as Reported by: APOORVA YOUNGBLOOD on 10/13/211956 Past Uednqzy-Oildtx-Kvntss Hx Patient Social History Smoking Status: Current Someday Smoker Type Used: Cigarettes Alcohol Use?: No Have you traveled recently?: No Immunizations Up To Date Date of Influenza Vaccine: Jun 30, 2021 Surgeries History of Surgeries: Yes Surgeries: Orthopedic (Hip fx - repair) Respiratory History of Respiratory Disorde: Yes (DENIES , BUT IS [employer]) Respiratory Disorders: COPD Cardiovascular History of Cardiac Disorders: No Neurological History of Neurological Disord: No Genitourinary History of Genitourinary Disor: Yes Genitourinary Disorders: UTI-Chronic Gastrointestinal History of Gastrointestinal Di: Yes Gastrointestinal Disorders: Gastroesophageal Reflux, Hiatal Hernia Musculoskeletal History of Musculoskeletal Dis: Yes Musculoskeletal Disorders: Scoliosis, Chronic Back Pain, Fractures Endocrine History of Endocrine Disorders: No HEENT History of HEENT Disorders: No Loss of Vision: Denies Hearing Impairment: Denies Cancer History of Cancer: No Psychosocial History of Psychiatric Problem: Yes Behavioral Health Disorders: Sleep Difficulties, Anxiety, Depression Integumentary History of Skin or Integumenta: No Blood Transfusions History of Blood Disorders: No Family Medical History Significant Family History: Hypertension (mother) Review of Systems-General Constitutional: malaise, weakness, weight loss EENTM: No blurred vision, No mouth swelling, No epistaxis, No throat swelling Respiratory: No cough, No phlegm; short of breath, other (just got over a Covid pneumonia) Cardiovascular: No chest pain, No edema Gastrointestinal: abdominal pain (mild and diffuse); No jaundice, No nausea, No vomiting Genitourinary: No dysuria; frequency; No hematuria Musculoskeletal: joint pain, muscle pain, muscle stiffness, muscle cramps, muscle weakness Skin: No change in color, No change in hair/nails Psychiatric/Neurological: Anxiety, Depressed, Emotional Problems; Denies Seizure; Weakness Physical Exam-General Problems Physical Exam Vital Signs Vital Signs - First Documented 12/01/21 12/01/21 15:15 18:30 Temp 36.5 Pulse 87 Resp 16 B/P (MAP) 92/65 (74) Pulse Ox 100 O2 Delivery Room Air FiO2 21 Capillary Refill : Less Than 3 Seconds General Appearance: no apparent distress, cachetic Eyes: Bilateral Eye PERRL, Bilateral Eye EOMI HEENT: pharynx normal; No scleral icterus (R), No scleral icterus (L) Neck: non-tender, supple Respiratory: lungs clear, normal breath sounds, no respiratory distress, no accessory muscle use Cardiovascular: regular rate, rhythm, no murmur Gastrointestinal: soft, no organomegaly, hernia (small umbilical) Rectal: blood streaked stool, mass, other (exam with nurse in the room, pt has brown-maroon colored stool coming out. At the 5 o'clock position (with pt laying in left lateral decub) there is almost a triangle of tissue coming out from rectum. On palpation this area is hard as is the rectal opening. There is an ulceration with perforation of colon extending down into gluteal/upper thigh.) Back: no CVA tenderness, no vertebral tenderness Neurologic/Psychiatric: alert, oriented x 3 Skin: normal color, warm/dry Lymphatic: no adenopathy (neck, axilla. However there are nodes in b/l groin) Data Review Labs Laboratory Tests 12/01/21 15:26: Urine Color YELLOW, Urine Clarity SL CLOUDY, Urine pH 6.0, Urine Specific [place] 1.025H, Urine Protein 1+H, Urine Glucose (UA) NEGATIVE, Urine Ketones NEGATIVE, Urine Nitrite POSITIVEH, Urine Bilirubin 2+H, Urine Urobilinogen 1.0, Urine Leukocyte Esterase TRACEH, Urine RBC (Auto) NEGATIVE, Urine RBC NONE, Urine WBC RARE, Urine Crystals NONE, Urine Bacteria LARGEH, Urine Casts NONE, Urine Mucus NEGATIVE, Urine Culture Indicated CULTURE PENDING 12/01/21 15:46: White Blood Count 11.9H, Red Blood Count 3.56L, Hemoglobin 9.5L, Hematocrit 30L, Mean Corpuscular Volume 84, Mean Corpuscular Hemoglobin 27, Mean Corpuscular Hemoglobin Concent 32, Red Cell Distribution Width 17.2H, Platelet Count 412H, Mean Platelet Volume 10.4, Immature Granulocyte % (Auto) 1, Neutrophils (%) (Auto) 78H, Lymphocytes (%) (Auto) 13, Monocytes (%) (Auto) 8, Eosinophils (%) (Auto) 1, Basophils (%) (Auto) 0, Neutrophils # (Auto) 9.2H, Lymphocytes # (Auto) 1.6, Monocytes # (Auto) 0.9, Eosinophils # (Auto) 0.1, Basophils # (Auto) 0.0, Immature Granulocyte # (Auto) 0.1, Prothrombin Time 15.4H, INR Comment 1.2, Activated Partial Thromboplast Time 33, Sodium Level 134L, Potassium Level 2.7L, Chloride Level 96L, Carbon Dioxide Level 20L, Anion Gap 18H, Blood Urea Nitrogen 13, Creatinine 0.82, Estimat Glomerular Filtration Rate 81, BUN/Creatinine Ratio 16, Glucose Level 95, Lactic Acid Level 2.57*H, Calcium Level 8.1L, Corrected Calcium 9.0, Total Bilirubin 0.6, Aspartate Amino Transf (AST/SGOT) 21, Alanine Aminotransferase (ALT/SGPT) 11, Alkaline Phosphatase 115, Total Protein 5.7L, Albumin 2.9L Radiology Date of Exam:12/01/21 CT ABDOMEN/PELVIS W PROCEDURE: CT abdomen and pelvis with contrast. TECHNIQUE: Multiple contiguous axial images were obtained through the abdomen and pelvis after administration of intravenous contrast. Auto Exposure Controls were utilized during the CT exam to meet ALARA standards for radiation dose reduction. All CT scans use one or more of the following dose optimizing techniques: automated exposure control, MA and/or KvP adjustment based on patient size and exam type or iterative reconstruction. INDICATION: Abscess, pain. COMPARISON: October 13, 2021. FINDINGS: Calcified granuloma within the right middle lobe. The lungs are otherwise clear. Large hiatal hernia. Hypodensity within the liver adjacent to the falciform ligament and gallbladder fossa is again identified. The liver is otherwise unremarkable. The spleen is unremarkable. The adrenal glands are unremarkable. The pancreas is unremarkable. The gallbladder is at the upper limits of normal in size without adjacent inflammatory stranding. Advanced vascular calcifications within the abdominal aorta and its branch vessels without aneurysmal dilatation of the abdominal aorta. Retroaortic left renal vein. Rodriguez catheter is present within the urinary bladder, though significant amount of gas and fluid remains within the urinary bladder. 2.8 x 2.0 cm irregular gas and fluid collection is identified within the perineum just to the left of midline with associated hyperenhancement. This is seen extending along the left aspect of the rectum. This appears relatively similar to the prior examination. Diffuse mural thickening of loops of the large and small bowel is identified, which appears to be a change from the prior examination. No evidence of bowel obstruction. No abnormal adnexal mass lesion. No new adenopathy. No significant free fluid or free air. New postsurgical changes are identified associated with the proximal right femur. No new acute osseous abnormality. IMPRESSION: Persistent perineal/left perirectal gas and fluid collection remains concerning for a perirectal/perineal abscess. Overall appearance is relatively similar to the prior examination. Neoplasm at this location not excluded. New mural thickening involving the large and small bowel, felt to relate to underlying enterocolitis. There is however no evidence of bowel obstruction. Gas and fluid within the urinary bladder though a Rodriguez catheter is present within the urinary bladder. Recommend clinical correlation for functionality of this Rodriguez catheter. Large hiatal hernia. Fatty infiltration of the liver. Additional findings as above, including interval postsurgical changes involving the proximal right femur. Dictated by: Dictated on workstation # [id number] Dict: 12/01/21 1728 Trans: 12/01/21 1759 [id number] Interpreted by: YARIEL CATALAN MD Electronically signed by: YARIEL CATALAN MD 12/01/21 1752 Assessment/Plan Assessment/Plan Assessment/Plan Rectal Bleed Anemia Rectal mass with ulceration/perforation r/o abscess Hypokalemia Hyponatremia UTI I reviewed the CT films myself and compared to CT from 10/14/21; I think the mass in the liver is bigger. I discussed the case with Dr. Blount. Pt probably needs an upper and lower endoscopy; I am very concerned she has a neoplasm/malignancy in the rectum. I think she needs to be prepped tomorrow and will plan on EGD/Colonoscopy on Wednesday. I did discuss this with the pt and she was ok with it. It will also help by hopefully finding cause for Anemia. She stated she has never before had a colnoscopy. This could just be an abscess as well that is causing the ulceration and inflammation. Will start bowel prep tomorrow. Pt needs electrolyte replacment, banana bag might be best. All questions answered to her satisfaction. Clinical Quality Measures DVT/VTE Risk/Contraindication: Contraindications-Pharm: Other *list below* Other: gi bleed ESTELLA STAPLETON DO Dec 01, 2021 19:05
[2021-12-01 19:38] VITALS: BP 110/72
[2021-12-01] MEDS: NS IV 1000 ML 1,000 ML IV SCH (19:38)
[2021-12-01] MEDS: SENNOSIDES 8.6 MG (SENOKOT) TAB PO SCH (20:00)
[2021-12-01] MEDS: DOCUSATE SODIUM 100 MG (COLACE) CAP PO SCH (20:00)
[2021-12-02 00:07] VITALS: BP 89/54
[2021-12-02] MEDS: PIPERACILLIN SODIUM/TAZOBACTAM 4.5 GM in NS (IVPB) 100 ML IV SCH ×3 (00:45→16:21)
[2021-12-02 03:54] VITALS: BP 93/50
[2021-12-02] MEDS: morphine INJ 4 MG/ML 1 ML (VIAL/SYRINGE) IV PRN ×4 (05:54→22:36)
[2021-12-02 06:37] LABS: BASOPHILS % (AUTO) 0 % (0-10); EOSINOPHILS # (AUTO) 0.3 10^3/uL (0.0-0.3); EOSINOPHILS % (AUTO) 3 % (0-10); HEMATOCRIT 26 % (35-52); HEMOGLOBIN 8.1 g/dL (11.5-16.0); LYMPHOCYTES # (AUTO) 0.8 10^3/uL (1.0-4.0); LYMPHOCYTES % (AUTO) 8 % (12-44); MEAN CORPUSCULAR HEMOGLOBIN 27 pg (25-34); MEAN CORPUSCULAR HGB CONC 31 g/dL (32-36); MEAN CORPUSCULAR VOLUME 86 fL (80-99); MEAN PLATELET VOLUME 9.9 fL (9.0-12.2); MONOCYTES # (AUTO) 0.3 10^3/uL (0.0-1.0); MONOCYTES % (AUTO) 3 % (0-12); NEUTROPHILS # (AUTO) 8.6 10^3/uL (1.8-7.8); NEUTROPHILS % (AUTO) 85 % (42-75); PLATELET COUNT 291 10^3/uL (130-400)
[2021-12-02 06:48] LABS: ALBUMIN 2.2 GM/DL (3.2-4.5)
[2021-12-02 06:49] LABS: POTASSIUM 2.8 MMOL/L (3.6-5.0)
[2021-12-02 06:50] LABS: CALCIUM 7.2 MG/DL (8.5-10.1)
[2021-12-02 06:51] LABS: TOTAL PROTEIN 4.4 GM/DL (6.4-8.2)
[2021-12-02 06:53] LABS: BILIRUBIN,TOTAL 0.3 MG/DL (0.1-1.0)
[2021-12-02 06:55] LABS: CREATININE SERUM 0.77 MG/DL (0.60-1.30)
[2021-12-02] MEDS: NS IV 1000 ML 1,000 ML IV SCH ×4 (07:01→18:07)
[2021-12-02 07:31] LABS: ACANTHOCYTES SLIGHT; ANISOCYTOSIS SLIGHT; BAND NEUTROPHILS 1 %; BURR CELLS SLIGHT; ELLIPT/OVALOCYTES SLIGHT; EOSINOPHILS % (MANUAL) 2 %; HYPOCHROMASIA SLIGHT; LYMPHOCYTES % (MANUAL) 6 %; MONOCYTES % (MANUAL) 2 %; NEUTROPHILS % (MANUAL) 89 %
--- NOTE | 2021-12-02 07:44 | Physician Query Clarification ---
PQ-Uncertain Diagnosis Admission/Discharge Admission Date: Dec 01, 2021 at 17:49 Discharge Date: Dr. Adams, The medical record reflects the following clinical scenario: History/Risk Factors: cachexia, UTI, perineal abscess, rectal mass Clinical Findings: lactic acid 2.57, WBC 11.9, T 36.5, P 37, R 16, BP 92/65 Treatment: IV Ceftriaxone, IV Piperacillin Question: Is sepsis a clinically valid diagnosis? Sepsis was documented in the ER record with no further documentation in the medical record. Please document a response in Progress Note or Discharge Summary. 1. Yes, clinically valid, condition resolved. 2. No, condition ruled out. 3. Other, with explanation of clinical findings. 4. Undetermined, no explanation for clinical findings. PHYSICIAN RESPONSE Diagnosis clinically valid: Yes, Conditon resolved Please remember a lack of response to the above will prompt a phone page by CDI/Coding staff. In responding to this query, please exercise your independent professional judgment. The purpose of this communication is to more accurately reflect the complexity of your patients condition. The fact that a question is asked does not imply that any particular answer is desired or expected. Thank you for your timely response to this clarification. Requestors name: Rafiq THIS PHYSICIAN QUERY FORM IS A PERMANENT PART OF THE MEDICAL RECORD RAFIQ PEDRO Dec 02, 2021 07:44 APOORVA ADAMS DO Dec 02, 2021 09:20
--- NOTE | 2021-12-02 08:02 | Progress Note - Surgery ---
LURDES ROONEY 12/02/21 0802: Subjective Date Seen by a Provider: Dec 02, 2021 Time Seen by a Provider: 07:57 Subjective/Events-last exam Patient states that her pain is improved this morning, but overall she feels about the same. Patient is still okay with bowel prep today and colonoscopy tomorrow. Patient states she has not had a bowel movement since being seen yesterday. Patient's left forearm is swollen in comparison to the right this morning. Patient states she did not notice it and it must have happened over night. Patient states she has not had her left arm swell like that before. Review of Systems General: No Chills, No Night Sweats HEENT: No Head Aches, No Visual Changes Pulmonary: No Dyspnea, No Cough Cardiovascular: No: Chest Pain, Palpitations Gastrointestinal: Other (rectal pressure and pain ); No: Nausea, Vomiting Genitourinary: Other (pain and soreness in perineal region ) Focused Exam Lactate Level 12/01/21 15:46: Lactic Acid Level 2.57*H 12/01/21 19:00: Lactic Acid Level 1.54 Objective Exam Vital Signs Date Time Temp Pulse Resp B/P (MAP) Pulse Ox O2 Delivery O2 Flow Rate FiO2 12/02/21 03:54 36.3 68 18 93/50 (64) 99 Room Air 12/02/21 00:07 36.1 66 18 89/54 (66) 98 Room Air 12/01/21 19:50 Room Air 12/01/21 19:38 37.0 63 18 110/72 (85) 100 Room Air 12/01/21 18:30 36.5 87 100 21 12/01/21 18:13 36.6 64 18 106/69 100 Room Air 12/01/21 16:04 36.5 12/01/21 15:15 36.5 87 16 92/65 (74) 100 Room Air I & O 12/02/21 07:00 Intake Total 1750 ml Output Total 230 ml Balance 1520 ml Capillary Refill : Less Than 3 Seconds General Appearance: No Apparent Distress, Chronically ill, Cachetic HEENT: Other (EOMI) Respiratory: Lungs Clear, Normal Breath Sounds, No Accessory Muscle Use, No Respiratory Distress Cardiovascular: Regular Rate, Rhythm, Normal Peripheral Pulses Gastrointestinal: normal bowel sounds, soft, no organomegaly, hernia (small umbilical) Extremity: No Calf Tenderness, No Pedal Edema, Other (Left forearm edema ) Neurologic/Psychiatric: Alert, Oriented x3, No Motor/Sensory Deficits, Normal Mood/Affect, facility engineer II-XII Norm as Tested Skin: Normal Color, Warm/Dry Results Lab Laboratory Tests 12/01/21 15:26: Urine Color YELLOW, Urine Clarity SL CLOUDY, Urine pH 6.0, Urine Specific [place] 1.025H, Urine Protein 1+H, Urine Glucose (UA) NEGATIVE, Urine Ketones NEGATIVE, Urine Nitrite POSITIVEH, Urine Bilirubin 2+H, Urine Urobilinogen 1.0, Urine Leukocyte Esterase TRACEH, Urine RBC (Auto) NEGATIVE, Urine RBC NONE, Urine WBC RARE, Urine Crystals NONE, Urine Bacteria LARGEH, Urine Casts NONE, Urine Mucus NEGATIVE, Urine Culture Indicated CULTURE PENDING 12/01/21 15:46: White Blood Count 11.9H, Red Blood Count 3.56L, Hemoglobin 9.5L, Hematocrit 30L, Mean Corpuscular Volume 84, Mean Corpuscular Hemoglobin 27, Mean Corpuscular Hemoglobin Concent 32, Red Cell Distribution Width 17.2H, Platelet Count 412H, Mean Platelet Volume 10.4, Immature Granulocyte % (Auto) 1, Neutrophils (%) (Auto) 78H, Lymphocytes (%) (Auto) 13, Monocytes (%) (Auto) 8, Eosinophils (%) (Auto) 1, Basophils (%) (Auto) 0, Neutrophils # (Auto) 9.2H, Lymphocytes # (Auto) 1.6, Monocytes # (Auto) 0.9, Eosinophils # (Auto) 0.1, Basophils # (Auto) 0.0, Immature Granulocyte # (Auto) 0.1, Prothrombin Time 15.4H, INR Comment 1.2, Activated Partial Thromboplast Time 33, Sodium Level 134L, Potassium Level 2.7L, Chloride Level 96L, Carbon Dioxide Level 20L, Anion Gap 18H, Blood Urea Nitrogen 13, Creatinine 0.82, Estimat Glomerular Filtration Rate 81, BUN/Creatinine Ratio 16, Glucose Level 95, Lactic Acid Level 2.57*H, Calcium Level 8.1L, Corrected Calcium 9.0, Total Bilirubin 0.6, Aspartate Amino Transf (AST/SGOT) 21, Alanine Aminotransferase (ALT/SGPT) 11, Alkaline Phosphatase 115, Total Protein 5.7L, Albumin 2.9L 12/01/21 19:00: Lactic Acid Level 1.54 12/02/21 06:31: White Blood Count 10.0, Red Blood Count 3.05L, Hemoglobin 8.1L, Hematocrit 26L, Mean Corpuscular Volume 86, Mean Corpuscular Hemoglobin 27, Mean Corpuscular Hemoglobin Concent 31L, Red Cell Distribution Width 17.3H, Platelet Count 291, Mean Platelet Volume 9.9, Immature Granulocyte % (Auto) 1, Neutrophils (%) (Auto) 85H, Lymphocytes (%) (Auto) 8L, Monocytes (%) (Auto) 3, Eosinophils (%) (Auto) 3, Basophils (%) (Auto) 0, Neutrophils # (Auto) 8.6H, Lymphocytes # (Auto) 0.8L, Monocytes # (Auto) 0.3, Eosinophils # (Auto) 0.3, Basophils # (Auto) 0.0, Immature Granulocyte # (Auto) 0.1, Sodium Level 132L, Potassium Level 2.8L, Chloride Level 101, Carbon Dioxide Level 17L, Anion Gap 14, Blood Urea Nitrogen 10, Creatinine 0.77, Estimat Glomerular Filtration Rate 87, BUN/Creatinine Ratio 13, Glucose Level 85, Calcium Level 7.2L, Corrected Calcium 8.6, Total Bilirubin 0.3, Aspartate Amino Transf (AST/SGOT) 15, Alanine Aminotransferase (ALT/SGPT) 9, Alkaline Phosphatase 88, Total Protein 4.4L, Albumin 2.2L, Neutrophils % (Manual) 89, Lymphocytes % (Manual) 6, Monocytes % (Manual) 2, Eosinophils % (Manual) 2, Band Neutrophils 1, Hypochromasia SLIGHT, Anisocytosis SLIGHT, [place] Cells SLIGHT, Elliptocytes SLIGHT, Acanthocytes SLIGHT Assessment/Plan Assessment/Plan Assessment/Plan Rectal Bleed Anemia - hgb 8.1 down from 9.5, continue to monitor Rectal mass with ulceration/perforation r/o abscess Hypokalemia - 2.8 today, oral KCl replacement Hyponatremia UTI - pip/tazo Patient still okay with bowel prep today and moving forward with EGD/Colonoscopy tomorrow. Clinical Quality Measures DVT/VTE Risk/Contraindication: Contraindications-Pharm: Other *list below* Other: gi bleed ENRIQUE DONNELLY DO 12/02/21 1126: Subjective Time Seen by a Provider: 11:12 Subjective/Events-last exam Pt seen and examined, no new complaints. Still having maroon stools and rectal pain. Denies abdominal pain. Spoke with nurse pt's IV infiltrated into left arm last night, IV switched to other arm. Review of Systems General: No Chills, No Night Sweats Pulmonary: No Dyspnea, No Cough Cardiovascular: No: Chest Pain, Palpitations Gastrointestinal: Other (rectal pressure and pain ); No: Nausea, Vomiting Genitourinary: Other (pain and soreness in perineal region ) Objective Exam General Appearance: No Apparent Distress, Chronically ill, Cachetic HEENT: Pharynx Normal, Moist Mucous Membranes Respiratory: Lungs Clear, Normal Breath Sounds, No Accessory Muscle Use, No Respiratory Distress Cardiovascular: Regular Rate, Rhythm, Normal Peripheral Pulses Gastrointestinal: normal bowel sounds, soft, no organomegaly, hernia (small umbilical) Extremity: No Calf Tenderness, No Pedal Edema, Other (Left forearm edema ) Neurologic/Psychiatric: Alert, Oriented x3, Normal Mood/Affect Skin: Normal Color, Warm/Dry Assessment/Plan Assessment/Plan Assessment/Plan Rectal Bleed Anemia - hgb 8.1 down from 9.5, continue to monitor Rectal mass with ulceration/perforation r/o abscess Hypokalemia - 2.8 today, oral KCl replacement Hyponatremia UTI - pip/tazo Patient still okay with bowel prep today and moving forward with EGD/Colonoscopy tomorrow. Supervisory-Addendum Brief Verification & Attestation Participated in pt care: history, MDM, physical Personally performed: exam, history, MDM, supervision of care Care discussed with: Medical Student Procedures: n/a Verification and Attestation of Medical Student E/M Service A medical student performed and documented this service. I then reviewed and verified all information documented by the medical student and made mod ifications to such information, when appropriate. I personally performed a physical exam, medical decision making and then discussed any differences between the notes and made revisions as necessary to create one note. Enrique Donnelly , 12/02/21 , 11:26 LURDES ROONEY Dec 02, 2021 08:02 ENRIQUE DONNELLY DO Dec 02, 2021 11:26
[2021-12-02] MEDS: PANTOPRAZOLE 40 MG (PROTONIX) TAB PO SCH (08:29)
[2021-12-02] MEDS: DOCUSATE SODIUM 100 MG (COLACE) CAP PO SCH ×2 (08:29→20:11)
[2021-12-02] MEDS: SENNOSIDES 8.6 MG (SENOKOT) TAB PO SCH ×2 (08:29→20:10)
[2021-12-02 08:48] VITALS: BP 95/58
[2021-12-02] MEDS ORDERED: CYAN-23 PO (09:02)
[2021-12-02] MEDS ORDERED: MAGNESIUM 1 GM/100 ML IVPB 100 ML IV ONE (10:30)
[2021-12-02] MEDS: POTASSIUM CL 10MEQ/50ML IVPB 50 ML IV SCH ×8 (10:49→18:34)
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
--- NOTE | 2021-12-02 11:43 | Physical Therapy Evaluation ---
PT Evaluation-General Medical Diagnosis Admission Date Dec 01, 2021 at 17:49 Medical Diagnosis: failure to thrive, hypokalemia, perineal abscess, sepsis Onset Date: Dec 01, 2021 Therapy Diagnosis Therapy Diagnosis: generalized weakness/debility Precautions Precautions/Isolations: Fall Prevention, Standard Precautions Referral Physician: Angie Reason for Referral: Evaluation/Treatment Medical History Pertinent Medical History: COPD, Smoking Additional Medical History mental illness Current History EMS from home secondary to inability to care for self Reviewed History: Yes Social History Home: Single Level Current Living Status: Alone Prior Prior Level of Function SCALE: Activities may be completed with or without assistive devices. 6-Mclorxfucs-sigpwfc completes the activity by him/herself with no assistance from a helper. 5-Set-up or Clean-up Assistance-helper sets up or cleans up; patient completes activity. [place] assists only prior to or following the activity. 4-Supervision or Touching Assistance-helper provides verbal cues and/or touching/steadying and/or contact guard assistance as patient completes activity. Assistance may be provided throughout the activity or intermittently. 3-Partial/Moderate Assistance-helper does LESS THAN HALF the effort. [place] lifts, holds or supports trunk or limbs, but provides less than half the effort. 2-Substantial/Maximal Assistance-helper does MORE THAN HALF the effort. [place] lifts or holds trunk or limbs and provides more than half the effort. 0-Glopzgmpr-gqxvmq does ALL the effort. Patient does none of the effort to complete the activity. Or, the assistance of 2 or more helpers is required for the patient to complete the activity. If activity was not attempted, code reason: 7-Patient Refused. 9-Not Applicable-not attempted and the patient did not perform the activity before the current illness, exacerbation or injury. 10-Not Attempted due to Environmental Limitations-(lack of equipment, weather restraints, etc.). 88-Not Attempted due to Medical Conditions or Safety Concerns. Bed Mobility: 6 Transfers (B,C,W/C): 6 Gait: 6 Indoor Mobility (Ambulation): Independent Prior Devices Use: Walker PT Evaluation-Current Subjective Patient reluctantly agrees to PT. Pain Numeric Pain Scale: 8 Location Body Site: Genital (perineal area) Pain Description: Pressure Objective Patient Orientation: Person, Time, Situation Attachments: Rodriguez Catheter, IV ROM/Strength ROM Lower Extremities bilateral LE WFL Strength Lower Extremities 3-/5 grossly bilateral LE Integumentary/Posture Integumentary refer to nursing notes Bladder Incontinence: Rodriguez Cath Posture WFL Neuromuscular (Tone, Coordination, Reflexes) diminished coordination due to weakness Sensory Vision: Functional Hearing: Functional Transfers Roll Left to Right (QC): 6 Sit to Lying (QC): 6 Lying to Sitting/Side of Bed(Q: 6 Sit to Stand (QC): 3 Chair/Pzr-tn-Wlgoz Xfer(QC): 7 Gait Does the Patient Walk?: Yes Mode of Locomotion: Walk Anticipated Mode of Locomotion: Walk Walk 10 feet (QC): 3 Walk 50 ft with 2 Turns(QC): 88 Walk 150 ft (QC): 88 Distance: 12' Gait Assistive Device: FWW Comments/Gait Description unsteady with PT correct Balance Sitting Static: Fair Sitting Dynamic: Fair Standing Static: Poor Standing Dynamic: Poor Assessment/Needs Patient presents with severe weakness and impaired mobility. Patient to have colonoscopy tomorrow. Rehab Potential: Guarded PT Skilled Nursing Goals Food Mobile Driver Goals PT Skilled Nursing Goals Time Frame: Dec 20, 2021 Roll Left & Right (QC): 6 Sit to Lying (QC): 6 Lying-Sitting on Side/Bed(QC): 6 Sit to Stand (QC): 6 Chair/Fmy-vu-Wpjmp Xfer(QC): 6 Toilet Transfer (QC): 6 Walk 10 feet (QC): 6 Walk 50ft with 2 Turns (QC): 6 Walk 150 ft (QC): 6 PT Plan Problem List Problem List: Activity Tolerance, Functional Strength, Safety, Balance, Gait, Transfer, Bed Mobility Treatment/Plan Treatment Plan: Continue Plan of Care Treatment Plan: Bed Mobility, Education, Functional Activity Apple, Functional Strength, Gait, Safety, Therapeutic Exercise, Transfers Treatment Duration: Dec 20, 2021 Frequency: 6 times per week Estimated Hrs Per Day: .25 hour per day Time/GCodes Time In: 1110 Time Out: 1123 Total Billed Treatment Time: 13 Total Billed Treatment 1 visit EVModC 13 min RADHA RASCON PT Dec 02, 2021 11:43
[2021-12-02] MEDS ORDERED: BISACODYL 5 MG (DULCOLAX) TABLET PO SCH ×2 (12:00→15:00)
[2021-12-02 12:06] VITALS: BP 93/60
[2021-12-02] MEDS: THIAMINE INJECTION 100 MG, FOLIC ACID INJECTION 1 MG, VITAMIN MULTI INJECTION 10 ML, MA... IV SCH ×5 (13:59)
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
[2021-12-02 16:00] VITALS: BP 90/50
[2021-12-02] MEDS ORDERED: polyethylene glycoL Bowel Prep(MIRALAX) 238 GM PO SCH (18:00)
[2021-12-02 19:46] VITALS: BP 108/60
[2021-12-03] VITALS (18 sets, daily range): BP systolic 70–143; BP diastolic 40–104
[2021-12-03] MEDS ORDERED: NS IV 500 ML 500 ML ONE (00:47)
[2021-12-03] MEDS: PIPERACILLIN SODIUM/TAZOBACTAM 4.5 GM in NS (IVPB) 100 ML IV SCH ×3 (00:53→10:34)
[2021-12-03] MEDS: NS IV 500 ML 500 ML IV PRN ×4 (00:54→05:18)
[2021-12-03] MEDS: NS IV 1000 ML 1,000 ML IV SCH ×3 (04:44→20:30)
[2021-12-03 05:36] LABS: BASOPHILS % (AUTO) 0 % (0-10); EOSINOPHILS # (AUTO) 0.4 10^3/uL (0.0-0.3); EOSINOPHILS % (AUTO) 5 % (0-10); HEMATOCRIT 24 % (35-52); HEMOGLOBIN 7.5 g/dL (11.5-16.0); LYMPHOCYTES # (AUTO) 0.8 10^3/uL (1.0-4.0); LYMPHOCYTES % (AUTO) 9 % (12-44); MEAN CORPUSCULAR HEMOGLOBIN 27 pg (25-34); MEAN CORPUSCULAR HGB CONC 32 g/dL (32-36); MEAN CORPUSCULAR VOLUME 86 fL (80-99); MONOCYTES # (AUTO) 0.5 10^3/uL (0.0-1.0); MONOCYTES % (AUTO) 5 % (0-12); NEUTROPHILS # (AUTO) 7.3 10^3/uL (1.8-7.8); NEUTROPHILS % (AUTO) 81 % (42-75); PLATELET COUNT 296 10^3/uL (130-400); WHITE BLOOD COUNT 9.1 10^3/uL (4.3-11.0)
[2021-12-03] MEDS ORDERED: HYDROCORTISONE 100 MG/2 ML (Solu-CORTEF) VIAL IV ONE (05:45)
[2021-12-03] MEDS ORDERED: NS IV 1000 ML 1,000 ML IV SCH (05:45)
[2021-12-03 05:48] LABS: POTASSIUM 3.3 MMOL/L (3.6-5.0)
[2021-12-03 05:49] LABS: CALCIUM 6.5 MG/DL (8.5-10.1)
[2021-12-03 05:50] LABS: TOTAL PROTEIN 3.8 GM/DL (6.4-8.2)
[2021-12-03 05:52] LABS: BILIRUBIN,TOTAL 0.3 MG/DL (0.1-1.0)
[2021-12-03 05:54] LABS: CREATININE SERUM 0.68 MG/DL (0.60-1.30)
[2021-12-03] MEDS ORDERED: MAGNESIUM 1 GM/100 ML IVPB 100 ML IV ONE (06:30)
[2021-12-03] MEDS: POTASSIUM CL 10MEQ/50ML IVPB 50 ML IV SCH ×7 (06:41→13:41)
--- NOTE | 2021-12-03 06:47 | Tele-ICU Progress Note ---
Subjective Date Seen by a Provider: Dec 03, 2021 Time Seen by a Provider: 06:25 Subjective/Events-last exam This virtual visit was conducted using real time audio/video. Thank you for asking us to see this patient for hypotension, perirectal abscess and hypokalemia. Was supposed to have panendoscopy later today Recent events: Admitted to floor 12/02/2021 w rectal bleed, FTT. PMH: GERD, anx/dep. SH: smoking history : current FH: Non-contributory ROS: sa in HPI PE: Cachectic, chronically ill appearing. 86/45, receiving 1 L bolus. Earlier got 2.5 Liters. O2 sat 98% on RA. HEENT: No obvious masses, adenopathy or JVD. Chest: clear to auscultation. CV: RRR S1 S2 No murmur or added sounds. Abd: Non-tender. Bowel sounds Y. : Unremarkable. Rodriguez N. INSTRUCTIONAL FACILITATOR/psychiatric: Grossly intact. No obvious focal findings. Extremities: No edema. Capillary refill < 3 seconds. Skin: unremarkable. Results: Decreased Hb 7.5, K 3.3, Alb 2.0. CXR: clear gardiner. Available chart/ vitals / labs / images reviewed. Video assessment done using teleICU camera, rest of exam as per RN. A/P: hypotension, perirectal abscess, low K. Critical Care: critically ill patient. Cont. IV bolus. May need pressors. Cont abx. Replace K. Discussed with PHANI Ambriz. Asked RN to reach out to eICU if any questions or concerns later. Time spent with patient/coordination of care with other health professionals (mins): 20 Sepsis Event Evaluation Height, Weight, BMI Height: '" Weight: lbs. oz. kg; 15.39 BMI Method: Focused Exam Lactate Level 12/01/21 15:46: Lactic Acid Level 2.57*H 12/01/21 19:00: Lactic Acid Level 1.54 12/03/21 06:01: Lactic Acid Level 0.93 Lactic Acid Level Laboratory Tests Test 12/03/21 06:01 Lactic Acid Level 0.93 MMOL/L (0.50-2.00) Exam Exam Patient acknowledged, consented, and participated in this virtual visit which was conducted using real time audio/video Vital Signs Date Time Temp Pulse Resp B/P (MAP) Pulse Ox O2 Delivery O2 Flow Rate FiO2 12/03/21 03:46 36.4 64 18 72/64 (67) 94 Room Air 12/03/21 02:40 72/40 (51) 12/03/21 01:58 84/48 (60) 12/03/21 01:30 80/50 (60) 12/03/21 00:35 36.3 68 18 70/40 (50) 93 Room Air 12/02/21 20:00 Room Air 12/02/21 19:46 35.9 63 18 108/60 (76) 95 Room Air 12/02/21 16:00 36.0 64 18 90/50 (63) 95 Room Air 12/02/21 12:06 37.2 77 18 93/60 (71) 97 Room Air 12/02/21 08:48 36.2 70 16 95/58 (70) 99 Room Air 12/02/21 08:12 93 Room Air 12/02/21 08:00 97 Room Air I & O 12/03/21 07:00 Intake Total 4075 ml Output Total 750 ml Balance 3325 ml Height & Weight Height: '" Weight: lbs. oz. kg; 15.39 BMI Method: General Appearance: No Apparent Distress, Anxious, Chronically ill, Thin HEENT: PERRL/EOMI, Normal ENT Inspection, Pharynx Normal, Moist Mucous Membranes Neck: Full Range of Motion, Normal Inspection, Non Tender Respiratory: Chest Non Tender, Lungs Clear, Normal Breath Sounds, No Accessory Muscle Use, No Respiratory Distress Cardiovascular: Regular Rate, Rhythm, No Edema, No Gallop, No JVD, No Murmur, Normal Peripheral Pulses Capillary Refill: Less Than 3 Seconds Gastrointestinal: normal bowel sounds, soft, no organomegaly, hernia (small umbilical) Extremity: Normal Capillary Refill, Normal Inspection, Normal Range of Motion, Non Tender, No Calf Tenderness, No Pedal Edema Neurologic/Psychiatric: Alert, Oriented x3, No Motor/Sensory Deficits, sheetmetal worker II- XII Norm as Tested, Depressed Affect, Motor Weakness (Generalized) Skin: Normal Color, Warm/Dry Lymphatic: No Adenopathy Results Lab Laboratory Tests 12/01/21 15:46 12/02/21 06:31 12/03/21 05:25 Assessment/Plan Assessment/Plan See free text Critical Care: Critically Ill Patient RAIMUNDO HANKINS MD Dec 03, 2021 06:47
--- NOTE | 2021-12-03 06:52 | Occ Therapy Progress Note ---
Therapy Progress Note Due to pt's decline in medical status, OT to discharge pt from OT services . Pt will need new orders when pt is able to actively participate in skilled therapy. FABIOLA CAAL DIETARY SUPERVISOR Dec 03, 2021 06:51
[2021-12-03] MEDS: NOREPINEPHRINE 8 MG/250 ML 250 ML IV SCH (07:43)
--- NOTE | 2021-12-03 08:11 | Progress Note - Surgery ---
LURDES ROONEY 12/03/21 0811: Subjective Date Seen by a Provider: Dec 03, 2021 Time Seen by a Provider: 08:05 Subjective/Events-last exam Patient having bouts of hypotension refractory to NS fluid bolus, was transferred to the ICU yesterday evening. Patient's BP is currently 82/50, is set to receive a central line and then start norepinephrine today. Patient states she feels weak and achy today. Still having perineal soreness. Review of Systems General: Fatigue HEENT: No Head Aches, No Visual Changes Pulmonary: No Dyspnea, No Cough Cardiovascular: No: Chest Pain, Palpitations Gastrointestinal: Other (perineal soreness and pain); No: Nausea, Vomiting Genitourinary: No Dysuria, No Frequency Focused Exam Lactate Level 12/01/21 15:46: Lactic Acid Level 2.57*H 12/01/21 19:00: Lactic Acid Level 1.54 12/03/21 06:01: Lactic Acid Level 0.93 Lactic Acid Level Laboratory Tests Test 12/03/21 06:01 Lactic Acid Level 0.93 MMOL/L (0.50-2.00) Objective Exam Vital Signs Date Time Temp Pulse Resp B/P (MAP) Pulse Ox O2 Delivery O2 Flow Rate FiO2 12/03/21 08:00 36.0 12/03/21 07:43 66 75/56 12/03/21 06:45 67 82/51 (61) 91 Room Air 12/03/21 06:37 66 17 82/54 (61) 96 Room Air 12/03/21 06:28 69 86/45 (59) 94 Room Air 12/03/21 06:12 36.4 Room Air 12/03/21 03:46 36.4 64 18 72/64 (67) 94 Room Air 12/03/21 02:40 72/40 (51) 12/03/21 01:58 84/48 (60) 12/03/21 01:30 80/50 (60) 12/03/21 00:35 36.3 68 18 70/40 (50) 93 Room Air 12/02/21 20:00 Room Air 12/02/21 19:46 35.9 63 18 108/60 (76) 95 Room Air 12/02/21 16:00 36.0 64 18 90/50 (63) 95 Room Air 12/02/21 12:06 37.2 77 18 93/60 (71) 97 Room Air 12/02/21 08:48 36.2 70 16 95/58 (70) 99 Room Air 12/02/21 08:12 93 Room Air I & O 12/03/21 07:00 Intake Total 4075 ml Output Total 750 ml Balance 3325 ml Capillary Refill : Less Than 3 Seconds General Appearance: No Apparent Distress, Chronically ill, Thin Respiratory: Normal Breath Sounds, No Accessory Muscle Use, No Respiratory Distress Cardiovascular: Regular Rate, Rhythm, Normal Peripheral Pulses Gastrointestinal: normal bowel sounds, soft, hernia (small umbilical) Extremity: Non Tender, No Calf Tenderness, No Pedal Edema Neurologic/Psychiatric: Alert, Oriented x3, Depressed Affect Skin: Normal Color, Warm/Dry Results Lab Laboratory Tests 12/02/21 10:00: SARS-CoV-2 RNA (RT-PCR) DetectedH 12/03/21 05:25: White Blood Count 9.1, Red Blood Count 2.74L, Hemoglobin 7.5L, Hematocrit 24L, Mean Corpuscular Volume 86, Mean Corpuscular Hemoglobin 27, Mean Corpuscular Hemoglobin Concent 32, Red Cell Distribution Width 17.5H, Platelet Count 296, Mean Platelet Volume 11.0, Immature Granulocyte % (Auto) 1, Neutrophils (%) (Auto) 81H, Lymphocytes (%) (Auto) 9L, Monocytes (%) (Auto) 5, Eosinophils (%) (Auto) 5, Basophils (%) (Auto) 0, Neutrophils # (Auto) 7.3, Lymphocytes # (Auto) 0.8L, Monocytes # (Auto) 0.5, Eosinophils # (Auto) 0.4H, Basophils # (Auto) 0.0, Immature Granulocyte # (Auto) 0.1, Sodium Level 135, Potassium Level 3.3L, Chloride Level 109H, Carbon Dioxide Level 16L, Anion Gap 10, Blood Urea Nitrogen 6L, Creatinine 0.68, Estimat Glomerular Filtration Rate 98, BUN/Creatinine Ratio 9, Glucose Level 82, Calcium Level 6.5L, Corrected Calcium 8.1L, Total Bilirubin 0.3, Aspartate Amino Transf (AST/SGOT) 16, Alanine Aminotransferase (ALT/SGPT) 9, Alkaline Phosphatase 69, Total Protein 3.8L, Albumin 2.0L, Procalcitonin 0.10H 12/03/21 06:01: Lactic Acid Level 0.93 12/03/21 06:24: Magnesium Level 1.9 Microbiology 12/02/21 MRSA Screen - Final, Complete 12/01/21 Blood Culture - Preliminary, Resulted No growth 12/01/21 Urine Culture - Preliminary, Resulted Citrobacter freundii complex Assessment/Plan Assessment/Plan Assessment/Plan Rectal Bleed Anemia - hgb 7.5 down from 8.1, 1 unit RBCs ordered, continue to monitor Rectal mass with ulceration/perforation r/o abscess Hypokalemia - 3.3 today, continue to monitor UTI - pip/tazo Hypotension currently 82/50, patient to start norepinephrine today Planning on central line placement this AM for patient. Patient underwent bowel prep yesterday, has not had any food yet, will continue to assess clinical status and move forward with EGD/Colonoscopy today if able. Clinical Quality Measures DVT/VTE Risk/Contraindication: Contraindications-Pharm: Other *list below* Other: gi bleed ENRIQUE DONNELLY DO 12/03/21 1030: Subjective Time Seen by a Provider: 08:16 Subjective/Events-last exam Pt seen and examined in the ICU. She is resting comfortably in bed and is not in any distress. I asked her about central line and endoscopies; she was ok with performing all of them. No changes in pain. Review of Systems General: Fatigue HEENT: No Head Aches, No Visual Changes Pulmonary: No Dyspnea, No Cough Cardiovascular: No: Chest Pain, Palpitations Gastrointestinal: Other (perineal soreness and pain); No: Nausea, Vomiting Genitourinary: No Dysuria, No Frequency Objective Exam General Appearance: No Apparent Distress, Chronically ill, Thin Respiratory: Lungs Clear, Normal Breath Sounds, No Accessory Muscle Use, No Respiratory Distress Cardiovascular: Regular Rate, Rhythm, Normal Peripheral Pulses Gastrointestinal: normal bowel sounds, soft, hernia (small umbilical) Extremity: No Pedal Edema Neurologic/Psychiatric: Depressed Affect Assessment/Plan Assessment/Plan Assessment/Plan Rectal Bleed Anemia - hgb 7.5 down from 8.1, 1 unit RBCs ordered, continue to monitor Rectal mass with ulceration/perforation r/o abscess Hypokalemia - 3.3 today, continue to monitor UTI - pip/tazo Hypotension currently 82/50, patient to start norepinephrine today - will place central line Planning on moving forward with EGD/Colonoscopy today; Anesthesia is ok with this. Supervisory-Addendum Brief Verification & Attestation Participated in pt care: history, MDM, physical Personally performed: exam, history, MDM, supervision of care Care discussed with: Medical Student Procedures: n/a Verification and Attestation of Medical Student E/M Service A medical student performed and documented this service. I then reviewed and verified all information documented by the medical student and made modifications to such information, when appropriate. I personally performed a physical exam, medical decision making and then discussed any differences between the notes and made revisions as necessary to create one note. Enrique Donnelly , 12/03/21 , 10:30 LURDES ROONEY Dec 03, 2021 08:11 ENRIQUE DONNELLY DO Dec 03, 2021 10:30
[2021-12-03] MEDS ORDERED: KETAMINE 50 MG/5 ML SYRINGE ONE (08:59)
[2021-12-03] MEDS ORDERED: PHENYLEPHRINE 100 MCG/ML 10 ML (ANESTHESIA) SYR ONE (08:59)
[2021-12-03] MEDS: THIAMINE INJECTION 100 MG, FOLIC ACID INJECTION 1 MG, VITAMIN MULTI INJECTION 10 ML, MA... IV SCH ×5 (08:59)
[2021-12-03] MEDS: DOCUSATE SODIUM 100 MG (COLACE) CAP PO SCH ×2 (09:00→20:30)
[2021-12-03] MEDS ORDERED: MIDAZOLAM 2 MG/2 ML (VERSED) VIAL ONE (09:00)
[2021-12-03] MEDS: SENNOSIDES 8.6 MG (SENOKOT) TAB PO SCH ×2 (09:00→20:30)
[2021-12-03] MEDS ORDERED: LACTATED RINGERS 1,000 ML IV ONE (09:13)
[2021-12-03] MEDS ORDERED: proPOfol 200 MG/20 ML (DIPRIVAN) VIAL IV ONE ×2 (09:21→10:09)
--- NOTE | 2021-12-03 09:36 | Physical Therapy Progress Note ---
Therapy Progress Note Discussed current treatment options with nurse. Informed her we need an updated order to begin PT with the patient as she has changed floors and current acuity of care. Nurse reports the patient is not appropriate for treatment at this time due to medical condition, but will put in an order for PT and requests PT begin in the am on 12-04-21. TEJINDER DAVIS PT Dec 03, 2021 09:36
--- NOTE | 2021-12-03 10:11 | Anesthesia-General Post-Op ---
MAC Patient Condition Mental Status/LOC: Same as Preop Cardiovascular: Satisfactory Nausea/Vomiting: Absent Respiratory: Satisfactory Pain: Controlled Complications: Absent Post Op Complications Complications None Follow Up Care/Instructions Patient Instructions None needed. Anesthesiology Discharge Order Discharge Order Patient is doing well, no complaints, stable vital signs, no apparent adverse anesthesia problems. No complications reported per nursing. KATHIE MONTANA CRNA Dec 03, 2021 10:11
--- NOTE | 2021-12-03 10:33 | Progress Note-Post Operative ---
Post-Operative Progess Note Surgeon (s)/Rod Filler (s) Surgeon ESTELLA STAPLETON DO Rod Filler: none Pre-Operative Diagnosis Hypotension, Venous insufficiency Post-Operative Diagnosis same Procedure & Operative Findings Date of Procedure 12/03/21 Procedure Performed/Findings The patient was in their bed in the ICU, was prepped and draped in the sterile fashion. A surgical pause was performed. Ultrasound was used to locate the right internal jugular vein. Once located anesthetic was infiltrated above it. Using an 18 gauge finder needle and watching with the US; the right internal jugular vein was accessed. Dark nonpulsatile blood was withdrawn. The wire was inserted. US assured proper placement. The needle was removed. A [#11] blade scalpel was used to make a stab incision along the guidewire. Dilator sheath was then advanced over the wire using Seldinger technique and the dilator was removed. The Groshong catheter was inserted over the guide wire using the Seldinger technique. The Groshong wire was removed. The catheter was then accessed in all three ports without difficulty. Good flash of blood was seen and it was then flushed with saline. The catheter was sutured in place with 3-0 silk on a blaire needle. The areas were then washed and dried. Sterile dressing was placed over incision. The patient tolerated the procedure well without complication. Anesthesia Type Local lidocaine Estimated Blood Loss Estimated blood loss (mL): scant Specimens/Packing Specimens Removed none ESTELLA STAPLETON DO Dec 03, 2021 10:32
--- NOTE | 2021-12-03 10:41 | Progress Note-Post Operative ---
Post-Operative Progess Note Surgeon (s)/Supervisor Paint (s) Surgeon ESTELLA STAPLETON DO Supervisor Paint: Kel Reich, MSIII Pre-Operative Diagnosis Anemia, Rectal mass Post-Operative Diagnosis same pending pathology Diverticula Gastritis Hiatal hernia Esophageal stricture colitis Procedure & Operative Findings Date of Procedure 12/03/21 Procedure Performed/Findings EGD with bx Colonoscopy with hot bx Colonoscopy with snare polypectomy PROCEDURE NOTE: After informed consent was obtained, the patient was brought to the endoscopy suite, placed in bed in left lateral decubitus position. She was administered IV sedation by the ENGINEERING PROGRAM MANAGER who then monitored vitals the entire time, heart rate, blood pressure and pulse ox and the scope was inserted down the mouth through the esophagus and met resistance; looked like stricture in the distal esophagus. Able to gently push past this into the stomach. Pushed into the stomach and past the antrum into the duodenum. Duodenum looked good. Antrum appeared to have some moderated gastritis. Pulled back and did a biopsy of antrum, then retroflexed the scope, saw a very large hiatal hernia. It was at least 5-6 cm across and looked to have a 1/3 of the stomach above diaphragm. Took a picture of this and then pulled the scope into the GE junction, took another picture of the hiatal hernia and then did a biopsy at the esophageal stricture. Did not really see a mass here, just narrowing of the esophagus. Pushed the scope back into the stomach, suctioned all the air out of the stomach. At this point pulled the scope up the esophagus and out the mouth. Switched camera, switched gloves, went down below and started the colonoscopy. Immediately upon entering the rectum noticed ulceration and mass. Took a couple of biopsies here. Then pushed all the way in about 140 cm to get to the to cecum. Noted some ulcerations and colitis, sampled the fecal material to send for cultures. In the cecum took a picture of the appendiceal orifice, noted the ileocecal valve and saw two larger polyps. Elected to do snare polypectomy to remove both of them with a snare. Then slowly withdrew the scope, insufflating to look circumferentially at the mendez starting in the cecum, up the ascending colon to the hepatic flexure, then down the transverse colon, splenic flexure, into the descending colon. Throughout here saw some ulcers and colitis, did some random hot biopsies. Continued down into the sigmoid and finally into the rectum, again saw the mass/ulcerations and took a picture of this. The patient tolerated the procedure and she recovered in the endoscopy suite. Anesthesia Type IV sedation by ENGINEERING PROGRAM MANAGER Estimated Blood Loss Estimated blood loss (mL): scant Specimens/Packing Specimens Removed antral bx Esophageal bx cecal polyps rectal mass random colon bx ESTELLA STAPLETON DO Dec 03, 2021 10:41
[2021-12-03] MEDS ORDERED: HURRICAINE EXT TUBE (BENZOCAINE) XX PRN (11:00)
[2021-12-03] MEDS: CYANOCOBALAMIN 1,000 MCG (VITAMIN B-12) TABLET PO SCH (11:25)
[2021-12-03] MEDS: PANTOPRAZOLE 40 MG (PROTONIX) TAB PO SCH (11:26)
[2021-12-03] MEDS: SERTRALINE 100 MG (ZOLOFT) TAB PO SCH (11:26)
[2021-12-03] MEDS: ACETAMINOPHEN 325 MG TABLET PO PRN (11:50)
[2021-12-03] MEDS: hydrOXYzine (VISTARIL/ATARAX) 25 MG capsule/tablet PO PRN ×2 (11:50→18:35)
--- NOTE | 2021-12-03 11:52 | Progress Note - Hospitalist ---
ROSE CURTIS 12/03/21 1152: Subjective HPI/CC On Admission Time Seen by Provider: 10:15 CC: Rectal mass with bleeding and anemia HPI: 61 [facility] old [facility] pt of [facility]. She was taken from atrocious living conditions to the ER due to weakness and rectal bleeding. It was assessed to have a rectal mass and it is draining blood. Pt was placed on antibiotic coverage. Dr. Donnelly was consulted. She will undergo EGD and colonoscopy tomor row. We will continue treating her pain and check B12 and iron. We will initiate iron infusion if necessary. Subjective/Events-last exam The patient was undergoing egd and colonoscopy at bedside this morning and was unable to be seen by me. Per nursing: she was moved to the ICU this morning due to worsening hypotension that was unresponsive to IV fluids. She was started on Levafed drip for blood pressure control. She had a central line placed, and was given 1 unit of blood. She was MRSA positive in the nares. Review of Systems General: No Chills; Other (no fever ) HEENT: No Head Aches, No Visual Changes Pulmonary: No Dyspnea, No Cough Cardiovascular: No: Chest Pain, Palpitations Gastrointestinal: No: Nausea, Vomiting Genitourinary: No Dysuria, No Hematuria Musculoskeletal: No: leg pain, foot pain Neurological: No: Weakness, Numbness Focused Exam Lactate Level 12/01/21 15:46: Lactic Acid Level 2.57*H 12/01/21 19:00: Lactic Acid Level 1.54 12/03/21 06:01: Lactic Acid Level 0.93 Objective Exam Vital Signs Vital Signs Date Time Temp Pulse Resp B/P (MAP) Pulse Ox O2 Delivery O2 Flow Rate FiO2 12/03/21 13:00 67 12/03/21 12:00 39 99/67 (78) Room Air 12/03/21 11:46 35.8 99 12/01/21 18:30 21 Capillary Refill : Less Than 3 Seconds General Appearance: No Apparent Distress, Chronically ill HEENT: PERRL/EOMI, Moist Mucous Membranes Neck: Full Range of Motion, Normal Inspection, Non Tender, Supple Respiratory: Chest Non Tender, Lungs Clear, Normal Breath Sounds, No Accessory Muscle Use, No Respiratory Distress Cardiovascular: Regular Rate, Rhythm, No Edema, No Gallop, No JVD, No Murmur, Normal Peripheral Pulses Gastrointestinal: No Organomegaly, No Pulsatile Mass, Non Tender, Soft Rectal: Deferred Extremity: Normal Inspection, No Calf Tenderness, No Pedal Edema Neurologic/Psychiatric: Alert, Oriented x3, No Motor/Sensory Deficits, Normal Mood/Affect Skin: Normal Color, Warm/Dry Lymphatic: No Adenopathy Results/Procedures Lab Laboratory Tests 12/03/21 05:25 Patient resulted labs reviewed. Assessment/Plan Assessment and Plan Assess & Plan/Chief Complaint Assessment: Hypovolemic shock from anemia d/t rectal tumor bleeding resulting in fluid resuscitation and IV Levafed therapy. Hematochezia Anemia Rectal mass with ulceration/ perforation Hypokalemia Hyponatremia Possible UTI Plan: Hypovolemic shock from anemia d/t rectal tumor bleeding resulting in fluid resuscitation and IV Levafed therapy. Rectal mass w ulceration/ perforation Hematochezia Anemia PT moved to ICU this morning d/t worsening hypotension uncontrolled by IVF Started on Levafed drip with improved blood pressure. PT had EGD and colonoscopy today which showed a rectal mass highly suspicious of malignancy. Appreciate surgery. UTI Hypokalemia Hyponatremia PT will switch from Zosyn to Levaquin today, as urine culture showed Citrobacter freundii complex with sensativity to Levaquin. Continue IVF replacement. Continue Levafed drip. Clinical Quality Measures DVT/VTE Risk/Contraindication: Contraindications-Pharm: Other *list below* Other: gi bleed SARA YOUNGBLOOD DO 12/04/21 0531: Subjective HPI/CC On Admission Date Seen by Provider: Dec 03, 2021 Subjective/Events-last exam Pt required ICU transfer due to hypotension not due to sepsis Sepsis has resolved, maintain on Zosyn but Cirtobacter on urine culture will require a change of antibiotic to complete treatment for that, and we'll initiate Levaquin EGD and colonoscopy performed showing a rectal mass, I will allow Dr. Donnelly to talk to her about that Hemoglobin was 7.5 but due to hypotension and resuscitating IV fluid we will initiate one unit of packed red blood cells to keep the volume in her vasculature Overall feels pretty well otherwise Review of Systems General: Fatigue, Malaise Objective Exam General Appearance: No Apparent Distress, WD/WN, Chronically ill, Thin Respiratory: Lungs Clear, Normal Breath Sounds Cardiovascular: Regular Rate, Rhythm Neurologic/Psychiatric: Alert, Oriented x3 Assessment/Plan Assessment and Plan Assess & Plan/Chief Complaint Supportive care ICU Levophed Supervisory-Addendum Brief Verification & Attestation Participated in pt care: history, MDM, physical Personally performed: exam, history, MDM, supervision of care Care discussed with: Medical Student Procedures: n/a Results interpretation: Verified all documentation Verification and Attestation of Medical Student E/M Service A medical student performed and documented this service in my presence. I reviewed and verified all information documented by the medical student and made modifications to such information, when appropriate. I personally performed the physical exam and medical decision making. Sara Youngblood, Dec 04, 2021,05:29 ROSE CURTIS Dec 03, 2021 11:52 SARA YOUNGBLOOD DO Dec 04, 2021 05:31
[2021-12-03] MEDS: ONDANSETRON 4 MG/2 ML (SDV) Z0FRAN IV PRN (20:22)
[2021-12-03] MEDS: traZODone 150 MG (DESYREL) TABLET PO PRN (20:30)
[2021-12-04] MEDS: NS IV 1000 ML 1,000 ML IV SCH ×3 (04:47→20:58)
[2021-12-04 04:56] LABS: BASOPHILS % (AUTO) 0 % (0-10); EOSINOPHILS # (AUTO) 0.4 10^3/uL (0.0-0.3); EOSINOPHILS % (AUTO) 3 % (0-10); HEMATOCRIT 28 % (35-52); HEMOGLOBIN 9.2 g/dL (11.5-16.0); LYMPHOCYTES # (AUTO) 1.4 10^3/uL (1.0-4.0); LYMPHOCYTES % (AUTO) 10 % (12-44); MEAN CORPUSCULAR HGB CONC 33 g/dL (32-36); MEAN CORPUSCULAR VOLUME 84 fL (80-99); MEAN PLATELET VOLUME 9.7 fL (9.0-12.2); MONOCYTES # (AUTO) 0.7 10^3/uL (0.0-1.0); MONOCYTES % (AUTO) 5 % (0-12); NEUTROPHILS % (AUTO) 81 % (42-75); PLATELET COUNT 335 10^3/uL (130-400); WHITE BLOOD COUNT 13.6 10^3/uL (4.3-11.0)
[2021-12-04 04:59] LABS: MEAN CORPUSCULAR HEMOGLOBIN 27 pg (25-34)
[2021-12-04 05:09] LABS: ALBUMIN 2.1 GM/DL (3.2-4.5); POTASSIUM 3.8 MMOL/L (3.6-5.0)
[2021-12-04 05:11] LABS: CALCIUM 7.1 MG/DL (8.5-10.1)
[2021-12-04 05:12] LABS: TOTAL PROTEIN 4.1 GM/DL (6.4-8.2)
[2021-12-04 05:14] LABS: BILIRUBIN,TOTAL 0.4 MG/DL (0.1-1.0)
[2021-12-04 05:15] LABS: PHOSPHORUS 1.4 MG/DL (2.3-4.7)
[2021-12-04 05:16] LABS: CREATININE SERUM 0.66 MG/DL (0.60-1.30)
[2021-12-04 05:19] LABS: MAGNESIUM 2.1 MG/DL (1.6-2.4)
[2021-12-04] MEDS: CYANOCOBALAMIN 1,000 MCG (VITAMIN B-12) TABLET PO SCH (05:56)
--- NOTE | 2021-12-04 07:19 | Physical Therapy Progress Note ---
Therapy Progress Note Due to transfer to ICU, PT will require new orders to resume therapy. Nursing notified. RADHA RASCON PT Dec 04, 2021 07:19
--- NOTE | 2021-12-04 07:47 | Progress Note - Surgery ---
LURDES ROONEY 12/04/21 0747: Subjective Date Seen by a Provider: Dec 04, 2021 Time Seen by a Provider: 07:42 Subjective/Events-last exam Patient resting comfortably in bed. States she feels better today than yesterday. Hgb up to 9.2. still having mild perineal soreness. Switched from zosyn to levofloxacin. Patient is very anxious about her path report. Review of Systems General: No Chills, No Night Sweats HEENT: No Head Aches, No Visual Changes Pulmonary: No Dyspnea, No Cough Cardiovascular: No: Chest Pain, Palpitations Gastrointestinal: No: Nausea, Vomiting Focused Exam Lactate Level 12/01/21 15:46: Lactic Acid Level 2.57*H 12/01/21 19:00: Lactic Acid Level 1.54 12/03/21 06:01: Lactic Acid Level 0.93 Objective Exam Vital Signs Date Time Temp Pulse Resp B/P (MAP) Pulse Ox O2 Delivery O2 Flow Rate FiO2 12/04/21 06:00 72 23 106/61 96 Room Air 12/04/21 05:00 71 19 112/67 96 Room Air 12/04/21 04:00 97 Room Air 12/04/21 04:00 67 15 95/67 95 Room Air 12/04/21 03:16 36.4 Room Air 12/04/21 03:00 67 12 87/56 94 Room Air 12/04/21 02:00 67 12 100/57 95 Room Air 12/04/21 01:00 70 12/04/21 01:00 67 13 86/55 94 Room Air 12/04/21 00:00 71 17 107/66 92 Room Air 12/04/21 00:00 98 Room Air 12/03/21 23:00 36.2 Room Air 12/03/21 23:00 65 14 81/53 95 Room Air 12/03/21 22:00 67 21 69/48 95 Room Air 12/03/21 21:00 73 15 92/57 95 Room Air 12/03/21 20:00 70 17 122/80 96 Room Air 12/03/21 20:00 96 Room Air 12/03/21 19:31 36.4 12/03/21 19:00 Room Air 12/03/21 19:00 73 17 95/61 97 Room Air 12/03/21 19:00 70 12/03/21 18:00 67 102/87 95 Room Air 12/03/21 17:00 70 23 101/67 97 Room Air 12/03/21 16:00 58 20 85/63 98 Room Air 12/03/21 15:42 36.3 12/03/21 15:00 74 16 93/72 99 Room Air 12/03/21 14:00 63 13 86/61 98 Room Air 12/03/21 13:00 67 12/03/21 13:00 69 15 86/60 98 Room Air 12/03/21 12:00 77 39 99/67 (78) Room Air 12/03/21 11:46 35.8 68 18 89/62 99 Room Air 12/03/21 11:00 63 17 143/104 (117) 87 Room Air 12/03/21 10:00 60 26 106/62 (77) 100 Room Air 12/03/21 09:21 36.5 64 20 82/60 99 Room Air 12/03/21 09:16 36.5 62 20 93/64 100 Room Air 12/03/21 09:08 36.3 78 20 104/93 98 Room Air 12/03/21 09:00 70 23 89/55 (66) 96 Room Air 12/03/21 08:00 65 27 92/61 (71) 97 Room Air 12/03/21 08:00 36.0 12/03/21 08:00 Room Air 12/03/21 07:43 66 75/56 I & O 12/04/21 07:00 Intake Total 4700 ml Output Total 3025 ml Balance 1675 ml Capillary Refill : Less Than 3 Seconds General Appearance: WD/WN, Anxious, Chronically ill, Thin Neck: Other (central line placement R side) Respiratory: Lungs Clear, Normal Breath Sounds, No Accessory Muscle Use, No Respiratory Distress Cardiovascular: Regular Rate, Rhythm, Normal Peripheral Pulses Gastrointestinal: normal bowel sounds, soft, hernia (small umbilical) Extremity: Normal Inspection, No Calf Tenderness, No Pedal Edema Neurologic/Psychiatric: Alert, Oriented x3 Skin: Normal Color, Warm/Dry Lymphatic: No Adenopathy Results Lab Laboratory Tests 12/04/21 04:50: White Blood Count 13.6H, Red Blood Count 3.35L, Hemoglobin 9.2#L, Hematocrit 28L , Mean Corpuscular Volume 84, Mean Corpuscular Hemoglobin 27, Mean Corpuscular Hemoglobin Concent 33, Red Cell Distribution Width 17.2H, Platelet Count 335, Mean Platelet Volume 9.7, Immature Granulocyte % (Auto) 1, Neutrophils (%) (Auto) 81H, Lymphocytes (%) (Auto) 10L, Monocytes (%) (Auto) 5, Eosinophils (%) (Auto) 3, Basophils (%) (Auto) 0, Neutrophils # (Auto) 11.0H, Lymphocytes # (Auto) 1.4, Monocytes # (Auto) 0.7, Eosinophils # (Auto) 0.4H, Basophils # (Auto) 0.0, Immature Granulocyte # (Auto) 0.1, Sodium Level 137, Potassium Level 3.8, Chloride Level 113H, Carbon Dioxide Level 14L, Anion Gap 10, Blood Urea Nitrogen 3L, Creatinine 0.66, Estimat Glomerular Filtration Rate 99, BUN/Creatinine Ratio 5, Glucose Level 86, Calcium Level 7.1L, Corrected Calcium 8.6, Phosphorus Level 1.4L, Magnesium Level 2.1, Total Bilirubin 0.4, Aspartate Amino Transf (AST/SGOT) 17, Alanine Aminotransferase (ALT/SGPT) 11, Alkaline Phosphatase 76, Total Protein 4.1L, Albumin 2.1L Microbiology 12/03/21 C. difficile GDH Antigen & Toxins - Final, Complete 12/02/21 MRSA Screen - Final, Complete 12/01/21 Blood Culture - Preliminary, Resulted No growth 12/01/21 Urine Culture - Preliminary, Resulted Citrobacter freundii complex Enterococcus faecalis Assessment/Plan Assessment/Plan Assessment/Plan Rectal Bleed Anemia - hgb 9.2 up from 7.5, continue to monitor Rectal mass with ulceration/perforation r/o abscess - awaiting pathology report Hypokalemia - 3.8 today, continue to monitor UTI - switched to levaquin to cover c. freunddi Hypotension, BP 106/61, maintained on norepinephrine, continue to monitor Leukocytosis - Patient switched to levaquin, continue to monitor Awaiting pathology report from procedures yesterday. C. Diff cultures were negative. Continue to monitor Hgb and WBC. Clinical Quality Measures DVT/VTE Risk/Contraindication: Contraindications-Pharm: Other *list below* Other: gi bleed ENRIQUE DONNELLY DO 12/04/21 1035: Subjective Time Seen by a Provider: 10:04 Subjective/Events-last exam Pt seen and examined, asked how me "how am I doing today?" I asked her if she w anted to do surgery and she said whatever was best for her. Review of Systems General: No Chills, No Night Sweats; Fatigue Pulmonary: No Dyspnea, No Cough Cardiovascular: No: Chest Pain, Palpitations Gastrointestinal: No: Nausea, Vomiting Objective Exam General Appearance: Anxious, Chronically ill, Thin Respiratory: Lungs Clear, Normal Breath Sounds, No Accessory Muscle Use, No Respiratory Distress Cardiovascular: Regular Rate, Rhythm Gastrointestinal: normal bowel sounds, soft, hernia (small umbilical) Skin: Warm/Dry, Pallor Assessment/Plan Assessment/Plan Assessment/Plan Rectal mass with ulceration/perforation r/o abscess - awaiting pathology report Rectal Bleed secondary to above Anemia - hgb 9.2 up from 7.5, continue to monitor Hypokalemia - 3.8 today, continue to monitor UTI - switched to levaquin to cover c. freunddi Hypotension, BP 106/61, maintained on norepinephrine, continue to monitor Leukocytosis - Patient switched to levaquin, continue to monitor Awaiting pathology report from procedures yesterday. C. Diff cultures were negative. I told pt that I think no matter what she is going to benefit from diverting fecal contents; whether it is cancer or abscess. She said ok, lets go with surgery. Will get consent and make NPO after MN. Supervisory-Addendum Brief Verification & Attestation Participated in pt care: history, MDM, physical Personally performed: exam, history, MDM, supervision of care Care discussed with: Medical Student Procedures: n/a Verification and Attestation of Medical Student E/M Service A medical student performed and documented this service. I then reviewed and verified all information documented by the medical student and made modifications to such information, when appropriate. I personally performed a physical exam, medical decision making and then discussed any differences between the notes and made revisions as necessary to create one note. Enrique Donnelly , 12/04/21 , 10:35 LURDES ROONEY Dec 04, 2021 07:47 NERIQUE DONNELLY DO Dec 04, 2021 10:35
[2021-12-04] MEDS: SERTRALINE 100 MG (ZOLOFT) TAB PO SCH (08:30)
[2021-12-04] MEDS: THIAMINE INJECTION 100 MG, FOLIC ACID INJECTION 1 MG, VITAMIN MULTI INJECTION 10 ML, MA... IV SCH ×5 (08:30)
[2021-12-04] MEDS: SENNOSIDES 8.6 MG (SENOKOT) TAB PO SCH ×2 (08:30→20:44)
[2021-12-04] MEDS: DOCUSATE SODIUM 100 MG (COLACE) CAP PO SCH ×2 (08:30→20:43)
[2021-12-04] MEDS: PANTOPRAZOLE 40 MG (PROTONIX) TAB PO SCH (08:30)
[2021-12-04] MEDS: hydrOXYzine (VISTARIL/ATARAX) 25 MG capsule/tablet PO PRN ×2 (08:44→20:33)
--- NOTE | 2021-12-04 08:54 | Tele-ICU Progress Note ---
Subjective Date Seen by a Provider: Dec 04, 2021 Time Seen by a Provider: 07:00 Subjective/Events-last exam This virtual visit was conducted using real time audio/video. Thank you for asking us to see this patient for hypotension, rectal mass and hypokalemia. Recent events: Panendoscopy w biopsies 12/03. Admitted to floor 12/02/2021 w rectal bleed, FTT. PMH: GERD, anx/dep. SH: smoking history : current FH: Non-contributory ROS: as in HPI PE: Cachectic, chronically ill appearing.106/60, receiving Levo. . O2 sat 96% on RA. HEENT: No obvious masses, adenopathy or JVD. Chest: clear to auscultation. CV: RRR S1 S2 No murmur or added sounds. Abd: Non-tender. Bowel sounds Y. : Unremarkable. Rodriguez Y. COMPUTER ANALYST/psychiatric: Grossly intact. No obvious focal findings. Extremities: Trace edema. Capillary refill < 3 seconds. Skin: unremarkable. Results: Decreased Hb 9.2, Alb 2.1. CXR: clear gardiner. Available chart/ vitals / labs / images reviewed. Video assessment done using teleICU camera, rest of exam as per RN. A/P: hypotension, rectal mass. Critical Care: critically ill patient. Cont. IV Levophed, PPI, Zoloft. Cont abx. Replace K PRN. Discussed with RN Lori. Asked RN to reach out to eICU if any questions or concerns later. Time spent with patient/coordination of care with other health professionals (mins): 20 Sepsis Event Evaluation Height, Weight, BMI Height: '" Weight: lbs. oz. kg; 15.39 BMI Method: Focused Exam Lactate Level 12/01/21 15:46: Lactic Acid Level 2.57*H 12/01/21 19:00: Lactic Acid Level 1.54 12/03/21 06:01: Lactic Acid Level 0.93 Exam Exam Patient acknowledged, consented, and participated in this virtual visit which was conducted using real time audio/video Vital Signs Date Time Temp Pulse Resp B/P (MAP) Pulse Ox O2 Delivery O2 Flow Rate FiO2 12/04/21 08:00 36.9 12/04/21 06:00 72 23 106/61 96 Room Air 12/04/21 05:00 71 19 112/67 96 Room Air 12/04/21 04:00 97 Room Air 12/04/21 04:00 67 15 95/67 95 Room Air 12/04/21 03:16 36.4 Room Air 12/04/21 03:00 67 12 87/56 94 Room Air 12/04/21 02:00 67 12 100/57 95 Room Air 12/04/21 01:00 70 12/04/21 01:00 67 13 86/55 94 Room Air 12/04/21 00:00 71 17 107/66 92 Room Air 12/04/21 00:00 98 Room Air 12/03/21 23:00 36.2 Room Air 12/03/21 23:00 65 14 81/53 95 Room Air 12/03/21 22:00 67 21 69/48 95 Room Air 12/03/21 21:00 73 15 92/57 95 Room Air 12/03/21 20:00 70 17 122/80 96 Room Air 12/03/21 20:00 96 Room Air 12/03/21 19:31 36.4 12/03/21 19:00 Room Air 12/03/21 19:00 73 17 95/61 97 Room Air 12/03/21 19:00 70 12/03/21 18:00 67 102/87 95 Room Air 12/03/21 17:00 70 23 101/67 97 Room Air 12/03/21 16:00 58 20 85/63 98 Room Air 12/03/21 15:42 36.3 12/03/21 15:00 74 16 93/72 99 Room Air 12/03/21 14:00 63 13 86/61 98 Room Air 12/03/21 13:00 67 12/03/21 13:00 69 15 86/60 98 Room Air 12/03/21 12:00 77 39 99/67 (78) Room Air 12/03/21 11:46 35.8 68 18 89/62 99 Room Air 12/03/21 11:00 63 17 143/104 (117) 87 Room Air 12/03/21 10:00 60 26 106/62 (77) 100 Room Air 12/03/21 09:21 36.5 64 20 82/60 99 Room Air 12/03/21 09:16 36.5 62 20 93/64 100 Room Air 12/03/21 09:08 36.3 78 20 104/93 98 Room Air 12/03/21 09:00 70 23 89/55 (66) 96 Room Air I & O 12/04/21 06:59 Intake Total 4700 ml Output Total 3025 ml Balance 1675 ml Height & Weight Height: '" Weight: lbs. oz. kg; 15.39 BMI Method: General Appearance: WD/WN, Anxious, Chronically ill, Thin Neck: Other (central line placement R side) Respiratory: Lungs Clear, Normal Breath Sounds, No Accessory Muscle Use, No Respiratory Distress Cardiovascular: Regular Rate, Rhythm, Normal Peripheral Pulses Capillary Refill: Less Than 3 Seconds Gastrointestinal: normal bowel sounds, soft, hernia (small umbilical) Extremity: Normal Inspection, No Calf Tenderness, No Pedal Edema Neurologic/Psychiatric: Alert, Oriented x3 Skin: Normal Color, Warm/Dry Lymphatic: No Adenopathy Results Lab Laboratory Tests 12/03/21 05:25 12/04/21 04:50 Assessment/Plan Assessment/Plan See free text. Critical Care: Critically Ill Patient RAIMUNDO HANKINS MD Dec 04, 2021 08:54
--- NOTE | 2021-12-04 12:53 | Progress Note - Hospitalist ---
ROSE CURTIS 12/04/21 1253: Subjective HPI/CC On Admission Date Seen by Provider: Dec 04, 2021 Time Seen by Provider: 10:25 CC: Rectal mass with bleeding and anemia HPI: 61 yr old [facility] pt of [facility]. She was taken from atrocious living conditions to the ER due to weakness and rectal bleeding. It was assessed to have a rectal mass and it is draining blood. Pt was placed on antibiotic coverage. Dr. Donnelly was consulted. She will undergo EGD and colonoscopy tomorrow. We will continue treating her pain and check B12 and iron. We will initiate iron infusion if necessary. Subjective/Events-last exam The patient was laying in bed this morning and was not in acute distress. She reports that she continues to have rectal pain. She reports an episode of vomiting last night which she reports was due to some soup that she ate. Review of Systems General: No Chills, No Night Sweats HEENT: No Head Aches, No Visual Changes Pulmonary: No Dyspnea, No Cough Cardiovascular: No: Chest Pain, Palpitations Gastrointestinal: Vomiting (one episode last night ); No: Nausea Neurological: Weakness (some); No: Numbness Focused Exam Lactate Level 12/01/21 15:46: Lactic Acid Level 2.57*H 12/01/21 19:00: Lactic Acid Level 1.54 12/03/21 06:01: Lactic Acid Level 0.93 Objective Exam Vital Signs Vital Signs Date Time Temp Pulse Resp B/P (MAP) Pulse Ox O2 Delivery O2 Flow Rate FiO2 12/04/21 14:00 87 22 96/65 98 Room Air 12/04/21 12:00 36.4 12/01/21 18:30 21 Capillary Refill : Less Than 3 Seconds General Appearance: No Apparent Distress, Chronically ill HEENT: PERRL/EOMI, Pharynx Normal, Moist Mucous Membranes Neck: Full Range of Motion, Normal Inspection, Non Tender, Supple Respiratory: Chest Non Tender, Lungs Clear, Normal Breath Sounds, No Accessory Muscle Use, No Respiratory Distress Cardiovascular: Regular Rate, Rhythm, No Edema, No Gallop, No JVD, No Murmur, Normal Peripheral Pulses Rectal: Deferred Extremity: Normal Inspection, Normal Range of Motion, No Calf Tenderness, No Pedal Edema Neurologic/Psychiatric: Alert, Oriented x3, No Motor/Sensory Deficits, Normal Mood/Affect Skin: Normal Color, Warm/Dry Lymphatic: No Adenopathy Results/Procedures Lab Laboratory Tests 12/04/21 04:50 Patient resulted labs reviewed. Assessment/Plan Assessment and Plan Assess & Plan/Chief Complaint Assessment: Hypovolemic shock from anemia d/t rectal tumor bleeding resulting in fluid resuscitation and IV Levafed therapy. Hematochezia Anemia Rectal mass with ulceration/ perforation Hypokalemia Hyponatremia Possible UTI Plan: Hypovolemic shock from anemia d/t rectal tumor bleeding resulting in fluid resuscitation and IV Lovophed therapy. Rectal mass w ulceration/ perforation Hematochezia Anemia Continue Levophed therapy. PT is planned to undergo rectal mass resection with colostomy tomorrow by Dr. Donnelly. UTI Hypokalemia Hyponatremia Continue on Levaquin. Continue IVF replacement. Clinical Quality Measures DVT/VTE Risk/Contraindication: Contraindications-Pharm: Other *list below* Other: gi bleed SARA YOUNGBLOOD DO 12/05/21 0515: Subjective Subjective/Events-last exam Patient doing a lot better Will have resection of rectal cancer with diverting colostomy tomorrow Levophed still on board Review of Systems General: Fatigue, Malaise Objective Exam General Appearance: No Apparent Distress, WD/WN, Chronically ill, Thin Respiratory: Lungs Clear, Normal Breath Sounds Cardiovascular: Regular Rate, Rhythm Neurologic/Psychiatric: Alert, Oriented x3 Assessment/Plan Assessment and Plan Assess & Plan/Chief Complaint Diverting colostomy tomorrow Supervisory-Addendum Brief Verification & Attestation Participated in pt care: history, MDM, physical Personally performed: exam, history, MDM, supervision of care Care discussed with: Medical Student Procedures: n/a Results interpretation: Verified all documentation Verification and Attestation of Medical Student E/M Service A medical student performed and documented this service in my presence. I reviewed and verified all information documented by the medical student and made modifications to such information, when appropriate. I personally performed the physical exam and medical decision making. Sara Youngblood Dec 05, 2021,05:13 ROSE CURTIS Dec 04, 2021 12:53 SARA YOUNGBLOOD DO Dec 05, 2021 05:15
[2021-12-04] MEDS: morphine INJ 4 MG/ML 1 ML (VIAL/SYRINGE) IV PRN ×2 (18:15→22:06)
[2021-12-04] MEDS: NOREPINEPHRINE 8 MG/250 ML 250 ML IV SCH (20:37)
[2021-12-04] MEDS: traZODone 150 MG (DESYREL) TABLET PO PRN (21:32)
[2021-12-05] VITALS (7 sets, daily range): BP systolic 101–120; BP diastolic 63–86
[2021-12-05] MEDS: morphine INJ 4 MG/ML 1 ML (VIAL/SYRINGE) IV PRN ×3 (04:39→20:22)
[2021-12-05 04:49] LABS: BASOPHILS % (AUTO) 0 % (0-10); EOSINOPHILS # (AUTO) 0.3 10^3/uL (0.0-0.3); EOSINOPHILS % (AUTO) 2 % (0-10); HEMATOCRIT 27 % (35-52); HEMOGLOBIN 8.7 g/dL (11.5-16.0); LYMPHOCYTES # (AUTO) 1.4 10^3/uL (1.0-4.0); LYMPHOCYTES % (AUTO) 9 % (12-44); MEAN CORPUSCULAR HEMOGLOBIN 27 pg (25-34); MEAN CORPUSCULAR HGB CONC 32 g/dL (32-36); MEAN CORPUSCULAR VOLUME 85 fL (80-99); MONOCYTES # (AUTO) 0.8 10^3/uL (0.0-1.0); MONOCYTES % (AUTO) 6 % (0-12); NEUTROPHILS # (AUTO) 12.2 10^3/uL (1.8-7.8); NEUTROPHILS % (AUTO) 83 % (42-75); PLATELET COUNT 343 10^3/uL (130-400); WHITE BLOOD COUNT 14.8 10^3/uL (4.3-11.0)
[2021-12-05 05:07] LABS: BILIRUBIN,TOTAL 0.3 MG/DL (0.1-1.0); CREATININE SERUM 0.6 MG/DL (0.60-1.30); MAGNESIUM 1.8 MG/DL (1.6-2.4); PHOSPHORUS 1.3 MG/DL (2.3-4.7); POTASSIUM 3.6 MMOL/L (3.6-5.0); TOTAL PROTEIN 3.9 GM/DL (6.4-8.2)
[2021-12-05] MEDS: NS IV 1000 ML 1,000 ML IV SCH ×2 (05:19→12:00)
[2021-12-05] MEDS: KCL 20 MEQ TAB (K-DUR) PO SCH (05:25)
[2021-12-05] MEDS: MAGNESIUM 1 GM/100 ML IVPB 100 ML IV SCH (05:25)
[2021-12-05] MEDS: POTASSIUM CL 10MEQ/50ML IVPB 50 ML IV SCH (05:26)
[2021-12-05] MEDS ORDERED: POTASSIUM CL 10MEQ/50ML IVPB 50 ML IV SCH ×2 (06:45→07:00)
--- NOTE | 2021-12-05 07:07 | Physical Therapy Progress Note ---
Therapy Progress Note Patient to have colostomy placement on this date. PT continues to require new orders to resume skilled therapy. Nursing is aware. RADHA RASCON PT Dec 05, 2021 07:07
[2021-12-05] MEDS: CYANOCOBALAMIN 1,000 MCG (VITAMIN B-12) TABLET PO SCH (07:28)
[2021-12-05] MEDS ORDERED: LACTATED RINGERS 1,000 ML IV PRN ×2 (08:45→14:15)
[2021-12-05] MEDS ORDERED: LIDOCAINE PF 2% 5 ML (XYLOCAINE) VIAL ONE (08:49)
[2021-12-05] MEDS ORDERED: MIDAZOLAM 2 MG/2 ML (VERSED) VIAL ONE (08:49)
[2021-12-05] MEDS ORDERED: proPOfol 200 MG/20 ML (DIPRIVAN) VIAL IV ONE (08:49)
[2021-12-05] MEDS ORDERED: ROCURONIUM 10 MG/ML 5 ML SYRINGE IV ONE (08:49)
[2021-12-05] MEDS ORDERED: fentaNYL INJ 100 MCG/2 ML AMP ONE (08:49)
--- NOTE | 2021-12-05 09:13 | Progress Note - Surgery ---
LURDES ROONEY 12/05/21912: Subjective Date Seen by a Provider: Dec 05, 2021 Time Seen by a Provider: 09:08 Subjective/Events-last exam Patient resting comfortably in bed, states no new complaints today. However, patient's norepinephrine dose is up to 0.18 mcg/kg/min. She is now also tachycardic, with rates in the mid 110's while I was in the room. Patient WBC count increased to 14.8 from 13.6. Patient stated she is ready for surgery today. Review of Systems General: No Chills, No Night Sweats HEENT: No Head Aches, No Visual Changes Pulmonary: No Dyspnea, No Cough Cardiovascular: No: Chest Pain, Palpitations Gastrointestinal: Other (perineal pain); No: Nausea, Vomiting, Abdominal Pain Focused Exam Lactate Level 12/03/21 06:01: Lactic Acid Level 0.93 Objective Exam Vital Signs Date Time Temp Pulse Resp B/P (MAP) Pulse Ox O2 Delivery O2 Flow Rate FiO2 12/05/21 09:00 117 14 94/72 92 Room Air 12/05/21 08:00 114 21 93/70 91 Room Air 12/05/21 08:00 97 Room Air 12/05/21 08:00 36.6 12/05/21 07:00 113 15 96/69 91 Room Air 12/05/21 07:00 112 12/05/21 06:00 67 21 102/68 92 Room Air 12/05/21 05:00 69 20 95/68 92 Room Air 12/05/21 04:00 72 16 103/73 92 Room Air 12/05/21 04:00 36.5 12/05/21 04:00 97 Room Air 12/05/21 03:00 73 16 105/75 93 Room Air 12/05/21 02:00 71 17 100/66 93 Room Air 12/05/21 01:00 72 12/05/21 01:00 72 14 112/79 92 Room Air 12/05/21 00:00 36.4 12/05/21 00:00 69 16 100/63 93 Room Air 12/05/21 00:00 97 Room Air 12/04/21 23:00 71 16 99/65 93 Room Air 12/04/21 22:00 77 27 81/56 94 Room Air 12/04/21 21:00 76 17 97/68 97 Room Air 12/04/21 20:37 97 92/69 12/04/21 20:04 36.6 12/04/21 20:00 97 Room Air 12/04/21 20:00 84 25 94/67 96 Room Air 12/04/21 19:00 71 25 98/64 97 Room Air 12/04/21 19:00 70 12/04/21 19:00 71 25 93/71 97 Room Air 12/04/21 18:46 96 Room Air 12/04/21 18:45 70 28 92/67 97 Room Air 12/04/21 18:30 70 21 98/65 97 Room Air 12/04/21 18:15 75 23 95/62 98 Room Air 12/04/21 18:00 78 29 103/71 97 Room Air 12/04/21 17:45 75 22 93/70 97 Room Air 12/04/21 17:30 79 26 97/62 97 Room Air 12/04/21 17:15 113 38 91/64 93 Room Air 12/04/21 17:00 75 20 95/61 96 Room Air 12/04/21 16:45 78 25 94/60 97 Room Air 12/04/21 16:35 97 Room Air 12/04/21 16:30 85 18 95/70 95 Room Air 12/04/21 16:15 85 20 91/56 97 Room Air 12/04/21 16:00 75 20 88/59 97 12/04/21 16:00 36.4 12/04/21 15:45 80 21 86/63 96 12/04/21 15:30 83 22 92/61 97 12/04/21 15:15 89 23 93/69 97 12/04/21 15:07 6 Room Air 0.00 12/04/21 15:00 79 30 83/60 97 12/04/21 14:45 81 22 89/62 97 12/04/21 14:30 87 38 88/62 98 12/04/21 14:15 92 34 94/63 98 12/04/21 14:00 87 22 96/65 98 Room Air 12/04/21 13:45 80 31 100/65 96 Room Air 12/04/21 13:30 80 23 105/70 97 Room Air 12/04/21 13:15 75 37 105/71 96 Room Air 12/04/21 13:00 72 49 111/68 96 Room Air 12/04/21 13:00 71 12/04/21 12:45 73 19 108/73 96 Room Air 12/04/21 12:30 73 32 102/74 97 Room Air 12/04/21 12:28 97 Room Air 12/04/21 12:15 70 22 103/67 96 Room Air 12/04/21 12:00 36.4 12/04/21 12:00 69 13 103/71 96 Room Air 12/04/21 11:45 70 15 104/72 95 Room Air 12/04/21 11:30 71 25 100/63 96 12/04/21 11:15 78 24 112/73 96 12/04/21 11:00 71 15 98/69 96 12/04/21 10:45 71 20 96/69 96 Room Air 12/04/21 10:30 78 20 109/76 97 Room Air 12/04/21 10:15 76 26 112/69 98 Room Air 12/04/21 10:00 69 18 106/71 97 Room Air 12/04/21 09:45 19 114/75 98 Room Air 12/04/21 09:30 25 120/76 98 Room Air 12/04/21 09:15 23 99/70 98 Room Air I & O 12/05/21 07:00 Intake Total 4615.2 ml Output Total 1950 ml Balance 2665.2 ml Capillary Refill : Less Than 3 Seconds General Appearance: No Apparent Distress, WD/WN, Chronically ill, Thin Respiratory: Chest Non Tender, No Accessory Muscle Use, No Respiratory Distress Cardiovascular: Normal Peripheral Pulses, Tachycardia Gastrointestinal: normal bowel sounds, soft, hernia (small umbilical) Extremity: Non Tender, No Calf Tenderness, No Pedal Edema Neurologic/Psychiatric: Alert, Oriented x3 Skin: Normal Color, Warm/Dry Lymphatic: No Adenopathy Results Lab Laboratory Tests 12/04/21 11:56: Lab Scanned Report Transfusion Reaction Form 12/05/21 04:40: White Blood Count 14.8H, Red Blood Count 3.18L, Hemoglobin 8.7L, Hematocrit 27L, Mean Corpuscular Volume 85, Mean Corpuscular Hemoglobin 27, Mean Corpuscular Hemoglobin Concent 32, Red Cell Distribution Width 18.0H, Platelet Count 343, Mean Platelet Volume 10.0, Immature Granulocyte % (Auto) 1, Neutrophils (%) (Auto) 83H, Lymphocytes (%) (Auto) 9L, Monocytes (%) (Auto) 6, Eosinophils (%) (Auto) 2, Basophils (%) (Auto) 0, Neutrophils # (Auto) 12.2H, Lymphocytes # (Auto) 1.4, Monocytes # (Auto) 0.8, Eosinophils # (Auto) 0.3, Basophils # (Auto) 0.0, Immature Granulocyte # (Auto) 0.1, Sodium Level 137, Potassium Level 3.6, Chloride Level 113H, Carbon Dioxide Level 14L, Anion Gap 10, Blood Urea Nitrogen 2L, Creatinine 0.60, Estimat Glomerular Filtration Rate 101, BUN/Creatinine Ratio 3, Glucose Level 99, Calcium Level 7.0L, Corrected Calcium 8.6, Phosphorus Level 1.3L, Magnesium Level 1.8, Total Bilirubin 0.3, Aspartate Amino Transf (AST/SGOT) 18, Alanine Aminotransferase (ALT/SGPT) 9, Alkaline Phosphatase 81, Total Protein 3.9L, Albumin 2.0L Microbiology 12/03/21 C. difficile GDH Antigen & Toxins - Final, Complete 12/03/21 MRSA Screen - Final, Complete 12/01/21 Blood Culture - Preliminary, Resulted No growth 12/01/21 Urine Culture - Final, Complete Citrobacter freundii complex Enterococcus faecalis Assessment/Plan Assessment/Plan Assessment/Plan Rectal mass with ulceration/perforation r/o abscess - awaiting pathology report Rectal Bleed secondary to above Anemia - hgb 8.7 down from 9.2 yesterday, continue to monitor Hypokalemia - 3.6 today, continue to monitor UTI - switched to levaquin to cover c. freunddi Hypotension, BP 96/69 , maintained on 0.18 mcg/kg/min norepinephrine, dose increased from 0.03 yesterday, continue to monitor Tachycardia, rate currently in the mid 110's. Continue to monitor. Leukocytosis - WBC 14.8 today, up from 13.6 yesterday. Patient switched to levaquin, continue to monitor Awaiting pathology report from procedures Wednesday. C. Diff cultures were negative. I told pt that I think no matter what she is going to benefit from diverting fecal contents; whether it is cancer or abscess. She said ok, lets go with surgery. Patient currently NPO after MN. Planning on surgery today. Clinical Quality Measures DVT/VTE Risk/Contraindication: Contraindications-Pharm: Other *list below* Other: gi bleed ENRIQUE DONNELLY DO 12/05/21 1312: Subjective Time Seen by a Provider: 12:31 Subjective/Events-last exam Pt seen and examined, I was told she had questions about surgery and was maybe going to not have sugery. Review of Systems General: No Chills, No Night Sweats Pulmonary: No Dyspnea, No Cough Cardiovascular: No: Chest Pain, Palpitations Gastrointestinal: No: Nausea, Vomiting, Abdominal Pain Objective Exam General Appearance: No Apparent Distress, Chronically ill, Thin Respiratory: Chest Non Tender, No Accessory Muscle Use, No Respiratory Distress Cardiovascular: Tachycardia Gastrointestinal: normal bowel sounds, soft, hernia (small umbilical) Assessment/Plan Assessment/Plan Assessment/Plan Rectal mass with ulceration/perforation r/o abscess - awaiting pathology report Rectal Bleed secondary to above Anemia - hgb 8.7 down from 9.2 yesterday, continue to monitor Hypokalemia - 3.6 today, continue to monitor UTI - switched to levaquin to cover c. freunddi Hypotension, BP 96/69 , maintained on 0.18 mcg/kg/min norepinephrine, dose increased from 0.03 yesterday, continue to monitor Tachycardia, rate currently in the mid 110's. Continue to monitor. Leukocytosis - WBC 14.8 today, up from 13.6 yesterday. Patient switched to levaquin, continue to monitor Awaiting pathology report from procedures Wednesday. C. Diff cultures were negative. I told pt that I think no matter what she is going to benefit from diverting fecal contents; whether it is cancer or abscess. I again talked to pt about surgery and told her it was her decision what to do. I did say I don't think she will improve without surgery. I also told her that Anesthesia thought she would be ok to have surgery and that it would be a relatively quick surgery. She said ok, lets go with surgery. Patient currently NPO. Supervisory-Addendum Brief Verification & Attestation Participated in pt care: history, MDM, physical Personally performed: exam, history, MDM, supervision of care Care discussed with: Medical Student Procedures: n/a Verification and Attestation of Medical Student E/M Service A medical student performed and documented this service. I then reviewed and verified all information documented by the medical student and made modifications to such information, when appropriate. I personally performed a physical exam, medical decision making and then discussed any differences between the notes and made revisions as necessary to create one note. Enrique Donnelly , 12/05/21 , 13:12 LURDES ROONEY Dec 05, 2021 09:13 ENRIQUE DONNELLY DO Dec 05, 2021 13:12
[2021-12-05] MEDS: PANTOPRAZOLE 40 MG (PROTONIX) TAB PO SCH (09:35)
[2021-12-05] MEDS: SERTRALINE 100 MG (ZOLOFT) TAB PO SCH (09:35)
[2021-12-05] MEDS: ONDANSETRON 4 MG/2 ML (SDV) Z0FRAN IV PRN (09:45)
--- NOTE | 2021-12-05 10:02 | Tele-ICU Progress Note ---
Subjective Date Seen by a Provider: Dec 05, 2021 Time Seen by a Provider: 10:02 Subjective/Events-last exam . (Tele-ICU Physician , Progress Note ) Available chart/ vitals / labs / Images reviewed Video assessment done using teleICU camera, rest of exam as per RN Discussed with RN , EXAM PER RN Events overnight : Afebrile FiO2 - ra I/O = + Drips: 125 lr Pressors: levo Consultants: sx Hospital course: (12/01) 61 y/o female admitted for failure to thrive, +UTI, perineal abscess. , GIB, liver mass (12/02) transferred to ICU for hypotension A/P Shock , septic - cont levo - check VBG - suspect worsenign acidosis - cont IVF Rectal mass with ulceration/perforation - Sc planned for today - cont abx - levofloxacin - as per sx UTI - cont abx Anemia -Rectal Bleed secondary to above - stabl HB , monitor Lines : R IJ 12/04 (Central Line Necessity Reviewed) Rodriguez: + OG: Nutrition: Analgesia: Anxiety/ delirium VTE Prophylaxis: scd Stress Ulcer Prophylaxis: PPI Plans in collaboration with bedside consultants and IM MDs. Discussed with RN to reach out if any questions or concerns A total of 31 minutes of critical care time was devoted to this patient today, required to treat and/or prevent further deterioration of critical care condition ( as above) . Sepsis Event Evaluation Height, Weight, BMI Height: '" Weight: lbs. oz. kg; 15.39 BMI Method: Focused Exam Lactate Level 12/03/21 06:01: Lactic Acid Level 0.93 Exam Exam Patient acknowledged, consented, and participated in this virtual visit which was conducted using real time audio/video Vital Signs Date Time Temp Pulse Resp B/P (MAP) Pulse Ox O2 Delivery O2 Flow Rate FiO2 12/05/21 09:00 117 14 94/72 92 Room Air 12/05/21 08:00 114 21 93/70 91 Room Air 12/05/21 08:00 97 Room Air 12/05/21 08:00 36.6 12/05/21 07:00 113 15 96/69 91 Room Air 12/05/21 07:00 112 12/05/21 06:00 67 21 102/68 92 Room Air 12/05/21 05:00 69 20 95/68 92 Room Air 12/05/21 04:00 72 16 103/73 92 Room Air 12/05/21 04:00 36.5 12/05/21 04:00 97 Room Air 12/05/21 03:00 73 16 105/75 93 Room Air 12/05/21 02:00 71 17 100/66 93 Room Air 12/05/21 01:00 72 12/05/21 01:00 72 14 112/79 92 Room Air 12/05/21 00:00 36.4 12/05/21 00:00 69 16 100/63 93 Room Air 12/05/21 00:00 97 Room Air 12/04/21 23:00 71 16 99/65 93 Room Air 12/04/21 22:00 77 27 81/56 94 Room Air 12/04/21 21:00 76 17 97/68 97 Room Air 12/04/21 20:37 97 92/69 12/04/21 20:04 36.6 12/04/21 20:00 97 Room Air 12/04/21 20:00 84 25 94/67 96 Room Air 12/04/21 19:00 71 25 98/64 97 Room Air 12/04/21 19:00 70 12/04/21 19:00 71 25 93/71 97 Room Air 12/04/21 18:46 96 Room Air 12/04/21 18:45 70 28 92/67 97 Room Air 12/04/21 18:30 70 21 98/65 97 Room Air 12/04/21 18:15 75 23 95/62 98 Room Air 12/04/21 18:00 78 29 103/71 97 Room Air 12/04/21 17:45 75 22 93/70 97 Room Air 12/04/21 17:30 79 26 97/62 97 Room Air 12/04/21 17:15 113 38 91/64 93 Room Air 12/04/21 17:00 75 20 95/61 96 Room Air 12/04/21 16:45 78 25 94/60 97 Room Air 12/04/21 16:35 97 Room Air 12/04/21 16:30 85 18 95/70 95 Room Air 12/04/21 16:15 85 20 91/56 97 Room Air 12/04/21 16:00 75 20 88/59 97 12/04/21 16:00 36.4 12/04/21 15:45 80 21 86/63 96 12/04/21 15:30 83 22 92/61 97 12/04/21 15:15 89 23 93/69 97 12/04/21 15:07 6 Room Air 0.00 12/04/21 15:00 79 30 83/60 97 12/04/21 14:45 81 22 89/62 97 12/04/21 14:30 87 38 88/62 98 12/04/21 14:15 92 34 94/63 98 12/04/21 14:00 87 22 96/65 98 Room Air 12/04/21 13:45 80 31 100/65 96 Room Air 12/04/21 13:30 80 23 105/70 97 Room Air 12/04/21 13:15 75 37 105/71 96 Room Air 12/04/21 13:00 72 49 111/68 96 Room Air 12/04/21 13:00 71 12/04/21 12:45 73 19 108/73 96 Room Air 12/04/21 12:30 73 32 102/74 97 Room Air 12/04/21 12:28 97 Room Air 12/04/21 12:15 70 22 103/67 96 Room Air 12/04/21 12:00 36.4 12/04/21 12:00 69 13 103/71 96 Room Air 12/04/21 11:45 70 15 104/72 95 Room Air 12/04/21 11:30 71 25 100/63 96 12/04/21 11:15 78 24 112/73 96 12/04/21 11:00 71 15 98/69 96 12/04/21 10:45 71 20 96/69 96 Room Air 12/04/21 10:30 78 20 109/76 97 Room Air 12/04/21 10:15 76 26 112/69 98 Room Air I & O 12/05/21 07:00 Intake Total 4615.2 ml Output Total 1950 ml Balance 2665.2 ml Height & Weight Height: '" Weight: lbs. oz. kg; 15.39 BMI Method: General Appearance: No Apparent Distress, WD/WN, Chronically ill, Thin Respiratory: Chest Non Tender, No Accessory Muscle Use, No Respiratory Distress Cardiovascular: Normal Peripheral Pulses, Tachycardia Capillary Refill: Less Than 3 Seconds Gastrointestinal: normal bowel sounds, soft, hernia (small umbilical) Extremity: Non Tender, No Calf Tenderness, No Pedal Edema Neurologic/Psychiatric: Alert, Oriented x3 Skin: Normal Color, Warm/Dry Lymphatic: No Adenopathy Results Lab Laboratory Tests 12/04/21 04:50 12/05/21 04:40 Assessment/Plan Assessment/Plan ` SHAGGY CHANG MD Dec 05, 2021 10:02
[2021-12-05] MEDS: SENNOSIDES 8.6 MG (SENOKOT) TAB PO SCH ×2 (10:41→19:52)
[2021-12-05] MEDS: DOCUSATE SODIUM 100 MG (COLACE) CAP PO SCH ×2 (10:41→19:53)
[2021-12-05 10:57] LABS: ABG OXYGEN SATURATION 91 % (94-100); ABG PCO2 27 MMHG (35-45); ABG PH 7.37 (7.37-7.43); ABG PO2 59 MMHG (79-93)
[2021-12-05 11:05] LABS: INSPIRED O2 ROOM AIR; PATIENT TEMP 37; VENTILATOR NO
[2021-12-05] MEDS ORDERED: SODIUM BICARB 8.4% 50 MEQ/50 ML (ABBOTT) SYR IV NR ×2 (11:17→12:00)
--- NOTE | 2021-12-05 11:27 | Progress Note - Hospitalist ---
Subjective HPI/CC On Admission Date Seen by Provider: Dec 05, 2021 Time Seen by Provider: 11:00 CC: Rectal mass with bleeding and anemia HPI: 61 yr old [facility] clinic pt of [facility]. She was taken from atrocious living conditions to the ER due to weakness and rectal bleeding. It was assessed to have a rectal mass and it is draining blood. Pt was placed on antibiotic coverage. Dr. Donnelly was consulted. She will undergo EGD and colonoscopy tomorrow. We will continue treating her pain and check B12 and iron. We will initiate iron infusion if necessary. Subjective/Events-last exam Patient having some sinus tachycardia EKG obtained Jazlyn consulted because heart rate was 140 Blood pressure still remains low at 90 Hemoglobin stable Review of Systems General: Fatigue, Malaise Focused Exam Lactate Level 12/03/21 06:01: Lactic Acid Level 0.93 Objective Exam Vital Signs Vital Signs Date Time Temp Pulse Resp B/P (MAP) Pulse Ox O2 Delivery O2 Flow Rate FiO2 12/06/21 04:00 94 Nasal Cannula 4.00 12/06/21 01:00 72 12/06/21 00:01 86/58 12/05/21 23:00 19 12/05/21 19:52 36.3 12/01/21 18:30 21 Capillary Refill : Less Than 3 Seconds General Appearance: WD/WN, Chronically ill, Mild Distress, Thin Respiratory: Lungs Clear, Normal Breath Sounds Cardiovascular: Tachycardia Neurologic/Psychiatric: Alert, Oriented x3 Results/Procedures Lab Laboratory Tests 12/06/21 05:00 Patient resulted labs reviewed. Assessment/Plan Assessment and Plan Assess & Plan/Chief Complaint Assessment: Hypovolemic shock from anemia d/t rectal tumor bleeding resulting in fluid resus citation and IV Levophed therapy. Hematochezia Anemia Rectal mass with ulceration/ perforation Hypokalemia Hyponatremia Possible UTI Plan: Hypovolemic shock from anemia d/t rectal tumor bleeding resulting in fluid resuscitation and IV Lovophed therapy. Rectal mass w ulceration/ perforation Hematochezia Anemia Continue Levophed therapy. PT is planned to undergo rectal mass resection wit h colostomy tomorrow by Dr. Donnelly. UTI Hypokalemia Hyponatremia Continue on Levaquin. Continue IVF replacement. Critical Care Critically Ill Patient Diagnosis/Problems Diagnosis/Problems (1) Perineal abscess Status: Acute (2) Failure to thrive in adult Status: Acute (3) Sepsis Status: Acute Qualifiers: Sepsis type: sepsis due to unspecified organism Sepsis acute organ dysfunction status: without acute organ dysfunction Qualified Codes: A41.9 - Sepsis, unspecified organism Clinical Quality Measures DVT/VTE Risk/Contraindication: Contraindications-Pharm: Other *list below* Other: gi bleed APOORVA YOUNGBLOOD DO Dec 05, 2021 11:27
[2021-12-05] MEDS ORDERED: ALBUMIN 5% 12.5 GM/250 ML 250 ML IV ONE (11:45)
[2021-12-05] MEDS ORDERED: NS IV 1000 ML 1,000 ML IV SCH (12:15)
--- NOTE | 2021-12-05 12:44 | Consultation-Cardiology ---
HPI-Cardiology Cardiology Consultation Date of Consultation 12/05/21 Date of Admission Time Seen by Provider: 10:02 Indication: Tachycardia HPI 61-year-old lady with history of mental disorder, she was admitted for failure to thrive and sepsis. She was noted to have perirectal abscess. Has been receiving IV fluid and maintained on Levophed. She was noted to be tachycardic, twelve-lead EKG showed low voltage with sinus tachycardia. I was called for evaluation. On my evaluation she denied any chest pain or shortness of breath, laying down in bed comfortable. Thirsty asking for water. Home Medications & Allergies Allergies: Coded Allergies: No Known Drug Allergies (Unverified , 04/16/20) Home Medication List Reviewed: Yes JJN-Hrhyun-Lrzrak Hx Patient Social History Marital Status: single Employed/Student: unemployed Smoking Status: Current Everyday Smoker Type Used: Cigarettes Have you traveled recently?: No Alcohol Use?: No Immunizations Up To Date Date of Influenza Vaccine: Jun 30, 2021 Past Medical History Discussed below Family Medical History Significant Family History: Hypertension (mother) Family Medical Hx Noncontributory Review of Systems-General Review of Systems Constitutional: see HPI, dizziness, malaise, weakness EENTM: no symptoms reported Respiratory: no symptoms reported, see HPI Cardiovascular: see HPI, palpitations Gastrointestinal: see HPI, loss of appetite, melena Genitourinary: No dysuria, No hematuria : No Musculoskeletal: see HPI, joint pain Skin: no symptoms reported, see HPI Psychiatric/Neurological: No Symptoms Reported, See HPI All Other Systems Reviewed Negative Unless Noted: Yes Reviewed Test Results Reviewed Test Results Lab Laboratory Tests Test 12/05/21 04:40 12/05/21 10:45 12/05/21 10:50 Range/Units White Blood Count 14.8 H 4.3-11.0 10^3/uL Red Blood Count 3.18 L 3.80-5.11 10^6/uL Hemoglobin 8.7 L 11.5-16.0 g/dL Hematocrit 27 L 35-52 % Mean Corpuscular Volume 85 80-99 fL Mean Corpuscular Hemoglobin 27 25-34 pg Mean Corpuscular Hemoglobin Concent 32 32-36 g/dL Red Cell Distribution Width 18.0 H 10.0-14.5 % Platelet Count 343 130-400 10^3/uL Mean Platelet Volume 10.0 9.0-12.2 fL Immature Granulocyte % (Auto) 1 % Neutrophils (%) (Auto) 83 H 42-75 % Lymphocytes (%) (Auto) 9 L 12-44 % Monocytes (%) (Auto) 6 0-12 % Eosinophils (%) (Auto) 2 0-10 % Basophils (%) (Auto) 0 0-10 % Neutrophils # (Auto) 12.2 H 1.8-7.8 10^3/uL Lymphocytes # (Auto) 1.4 1.0-4.0 10^3/uL Monocytes # (Auto) 0.8 0.0-1.0 10^3/uL Eosinophils # (Auto) 0.3 0.0-0.3 10^3/uL Basophils # (Auto) 0.0 0.0-0.1 10^3/uL Immature Granulocyte # (Auto) 0.1 0.0-0.1 10^3/uL Sodium Level 137 135-145 MMOL/L Potassium Level 3.6 3.6-5.0 MMOL/L Chloride Level 113 H 98-107 MMOL/L Carbon Dioxide Level 14 L 21-32 MMOL/L Anion Gap 10 5-14 MMOL/L Blood Urea Nitrogen 2 L 7-18 MG/DL Creatinine 0.60 0.60-1.30 MG/DL Estimat Glomerular Filtration Rate 101 BUN/Creatinine Ratio 3 Glucose Level 99 70-105 MG/DL Calcium Level 7.0 L 8.5-10.1 MG/DL Corrected Calcium 8.6 8.5-10.1 MG/DL Phosphorus Level 1.3 L 2.3-4.7 MG/DL Magnesium Level 1.8 1.6-2.4 MG/DL Total Bilirubin 0.3 0.1-1.0 MG/DL Aspartate Amino Transf (AST/SGOT) 18 5-34 U/L Alanine Aminotransferase (ALT/SGPT) 9 0-55 U/L Alkaline Phosphatase 81 40-136 U/L Total Protein 3.9 L 6.4-8.2 GM/DL Albumin 2.0 L 3.2-4.5 GM/DL Troponin I < 0.028 <0.028 NG/ML Blood Gas Puncture Site NA Blood Gas Patient Temperature 37 Arterial Blood pH 7.37 7.37-7.43 Arterial Blood Partial Pressure CO2 27 L 35-45 MMHG Arterial Blood Partial Pressure O2 59 L 79-93 MMHG Arterial Blood HCO3 15 *L 23-27 MMOL/L Arterial Blood Total CO2 16.0 L 21.0-31.0 MMOL/L Arterial Blood Oxygen Saturation 91 L 94-100 % Arterial Blood Base Excess -9.0 L -2.5-2.5 MMOL/L Brent Test NA Blood Gas Ventilator Setting NO Blood Gas Inspired Oxygen ROOM AIR Radiology Date of Exam:12/01/21 CT ABDOMEN/PELVIS W PROCEDURE: CT abdomen and pelvis with contrast. TECHNIQUE: Multiple contiguous axial images were obtained through the abdomen and pelvis after administration of intravenous contrast. Auto Exposure Controls were utilized during the CT exam to meet ALARA standards for radiation dose reduction. All CT scans use one or more of the following dose optimizing techniques: automated exposure control, MA and/or KvP adjustment based on patient size and exam type or iterative reconstruction. INDICATION: Abscess, pain. COMPARISON: October 13, 2021. FINDINGS: Calcified granuloma within the right middle lobe. The lungs are otherwise clear. Large hiatal hernia. Hypodensity within the liver adjacent to the falciform ligament and gallbladder fossa is again identified. The liver is otherwise unremarkable. The spleen is unremarkable. The adrenal glands are unremarkable. The pancreas is unremarkable. The gallbladder is at the upper limits of normal in size without adjacent inflammatory stranding. Advanced vascular calcifications within the abdominal aorta and its branch vessels without aneurysmal dilatation of the abdominal aorta. Retroaortic left renal vein. Rodriguez catheter is present within the urinary bladder, though significant amount of gas and fluid remains within the urinary bladder. 2.8 x 2.0 cm irregular gas and fluid collection is identified within the perineum just to the left of midline with associated hyperenhancement. This is seen extending along the left aspect of the rectum. This appears relatively similar to the prior examination. Diffuse mural thickening of loops of the large and small bowel is identified, which appears to be a change from the prior examination. No evidence of bowel obstruction. No abnormal adnexal mass lesion. No new adenopathy. No significant free fluid or free air. New postsurgical changes are identified associated with the proximal right femur. No new acute osseous abnormality. IMPRESSION: Persistent perineal/left perirectal gas and fluid collection remains concerning for a perirectal/perineal abscess. Overall appearance is relatively similar to the prior examination. Neoplasm at this location not excluded. New mural thickening involving the large and small bowel, felt to relate to underlying enterocolitis. There is however no evidence of bowel obstruction. Gas and fluid within the urinary bladder though a Rodriguez catheter is present within the urinary bladder. Recommend clinical correlation for functionality of this Rodriguez catheter. Large hiatal hernia. Fatty infiltration of the liver. Additional findings as above, including interval postsurgical changes involving the proximal right femur. Dictated by: Dictated on workstation # [id number] Dict: 12/01/21 1728 Trans: 12/01/211758 [id number] Interpreted by: YARIEL CATALAN MD Electronically signed by: YARIEL CATALAN MD 12/01/211758 Physical Exam Physical Exam Vital Signs Vital Signs - First Documented 12/01/21 12/01/21 12/04/21 15:15 18:30 15:07 Temp 36.5 Pulse 87 Resp 16 B/P (MAP) 92/65 (74) Pulse Ox 100 O2 Delivery Room Air O2 Flow Rate 0.00 FiO2 21 Capillary Refill : Less Than 3 Seconds Height, Weight, BMI Height: '" Weight: lbs. oz. kg; 15.39 BMI Method: General Appearance: No Apparent Distress, WD/WN, Chronically ill, Thin Eyes: Right Eye Normal Inspection, Right Eye PERRL; Bilateral Eye EOMI HEENT: PERRL/EOMI, TMs Normal, Normal ENT Inspection, Pharynx Normal, Moist Mucous Membranes Neck: Full Range of Motion, Normal Inspection, Non Tender, Supple, Carotid Bruit Respiratory: Chest Non Tender, No Accessory Muscle Use, No Respiratory Distress Cardiovascular: Normal Peripheral Pulses, Tachycardia Gastrointestinal: No Organomegaly, No Pulsatile Mass, Non Tender, Soft Rectal: Deferred Genital/Rectal: Other (patient has significant inflammation/excoriation over the labia with swelling left labia majora, induration posterior labia majora with induration over the perineum that is exquisitely tender. fleshy mass at the anus) Back: Normal Inspection, No CVA Tenderness, No Vertebral Tenderness Extremity: Non Tender, No Calf Tenderness, No Pedal Edema Neurologic/Psychiatric: Alert, Oriented x3 Skin: Normal Color, Warm/Dry Lymphatic: No Adenopathy A/P-Cardiology Admission Diagnosis Sepsis Septic shock Tachycardia UTI Assessment/Plan Sepsis with septic shock, maintained on Levophed, receiving IV fluid boluses. Receiving antibiotic and managed by medical team Tachycardia, sinus tachycardia, most probably reactive tachycardia secondary to sepsis and Levophed. 2D echo showed prominent right heart chambers with pulmonary hypertension with PA pressure 45 to 50 mmHg. I am concerned about possible pulmonary embolism. No other signs of DVT. Patient has SCD, I will evaluate CT angiogram of the chest. Hypotension, secondary to sepsis. Perirectal abscess, receiving antibiotic, for I&D. UTI, receiving antibiotics. History of anxiety, depression, managed by primary care physician Failure to thrive. Clinical Quality Measures DVT/VTE Risk/Contraindication: Contraindications-Pharm: Other *list below* Other: gi bleed SILVIA OH MD Dec 05, 2021 12:44
[2021-12-05] MEDS ORDERED: CATHETER FLUSH 10 ML SYR IV PRN (13:00)
[2021-12-05] MEDS ORDERED: IOHEXOL 350 MG/ML 100 ML (OMNIPAQUE 350) VIAL IV ONE (13:00)
[2021-12-05] MEDS ORDERED: HOLD METFORMIN - RECEIVED CONTRAST 20 ML VIAL IV SCH (13:00)
[2021-12-05] MEDS ORDERED: NS 100 ML (IVPB) BAG IV ONE (13:00)
--- NOTE | 2021-12-05 14:15 | Progress Note-Post Operative ---
Post-Operative Progess Note Surgeon (s)/Pelletizer Operator (s) Surgeon ESTELLA STAPLETON DO Pelletizer Operator: Chip Pre-Operative Diagnosis Anemia, Rectal mass Post-Operative Diagnosis Same Procedure & Operative Findings Date of Procedure 12/05/21 Procedure Performed/Findings Laparoscopic Finnegan's with end colostomy Anesthesia Type GET Estimated Blood Loss Estimated blood loss (mL): scant Specimens/Packing Specimens Removed portion of proximal colon ESTELLA STAPLETON DO Dec 05, 2021 14:14
[2021-12-05] MEDS ORDERED: ONDANSETRON 4 MG/2 ML (SDV) Z0FRAN ONE (14:32)
[2021-12-05] MEDS ORDERED: NEOSTIGMINE 3 MG/3 ML VIAL ONE (14:32)
[2021-12-05] MEDS ORDERED: GLYCOPYRROLATE 0.2 MG/ML (ROBINUL) 2 ML VIAL ONE (14:32)
[2021-12-05] MEDS ORDERED: SEVOFLURANE (ULTANE) 15 ML INHAL SOLN ONE (14:33)
[2021-12-05] MEDS ORDERED: RT-ALBUTEROL SULF 2.5 MG/3 ML PRE-MIX VIAL INH ONE (15:00)
[2021-12-05] MEDS ORDERED: morphine INJ 10 MG/ML 1ML (SYR OR VIAL) IVP ONE (15:00)
[2021-12-05] MEDS ORDERED: ONDANSETRON 4 MG/2 ML (SDV) Z0FRAN IVP PRN (15:00)
[2021-12-05] MEDS ORDERED: morphine INJ 10 MG/ML 1ML (SYR OR VIAL) ONE (15:11)
--- NOTE | 2021-12-05 18:39 | OPERATIVE REPORT ---
DATE OF SERVICE: 12/05/2021 PREOPERATIVE DIAGNOSIS: Rectal mass with perforation and abscess. POSTOPERATIVE DIAGNOSIS: Rectal mass with perforation and abscess, pending pathology. PROCEDURE: Laparoscopic Miley's procedure with end colostomy for diversion. SURGEON: Enrique Donnelly DO VENTILATED RIB FITTER: Farrukh Saunders DO. ANESTHESIA: General endotracheal tube. SPECIMEN: Proximal portion of colon. BLOOD LOSS: Scant. FLUIDS: Per anesthesia. POSTOPERATIVE CONDITION: Stable. INDICATION FOR PROCEDURE: The patient is a 61-year-old female who was found to have a rectal mass that had perforated into the upper inner thigh and it was felt that no matter what whether this was cancer or abscess, it would need diversion to heal. FINDINGS: The patient had a very floppy sigmoid colon, able to easily perform end colostomy laparoscopically. PROCEDURE NOTE: After informed consent was obtained, the patient was brought to the operating room, placed on the operating table in supine position. She was sterilely prepped and draped in normal fashion. I made a small midline incision below the umbilicus with a #11 blade, carried down through the skin into subcutaneous tissue, then deepened down to subcutaneous tissue with Bovie electrocautery down to fascia. Fascia was incised with Bovie electrocautery and immediately encountered some clear liquid, placed a louis 12 mm trocar port under direct visualization. Created pneumoperitoneum. It looked like there was some fibrinous material on the liver, did not really see any masses, did not see any masses in the abdomen. At this point, I placed 2 more ports, one in the right lower quadrant, one in left lower quadrant using 11 blade for stab incision and Versa step system, all done under direct visualization. These were 12 mm ports. The patient was placed in Trendelenburg, able to then grasp the colon just above in the distal sigmoid portion and then using a LigaSure clamp and coagulate and transect mesentery getting through the mesentery able to get under the air and then removed the LigaSure and then placed an Endo-CHRISTOPHER 60 in and across the bowel, held for 30 seconds and then clamped and fired, thereby transecting them and coming across the mesentery with the LigaSure, clamping, coagulating and transecting and freeing this up just enough to be able to bring this up, then made the left lower quadrant incision, had placed it above the ASIS along the line towards the umbilicus and then away from the umbilicus, right in the rectus muscle, made this incision slightly bigger down to the fascia and then bluntly increased the size of the fascia with fingers, placed a [place] and then able to grasp this colon and bring this through this incision. At this point, then elected to close the midline incision, taken the port out and closing the fascia with 0 Vicryl [id number] suture, then closing the skin with karan, left the right lower quadrant port in place, we then placed a 10/10 drape across the midline to protect the midline and then performed an end colostomy, had cut off the proximal portion of the colon and passed this off table and then at 3, 6, 9, and 12 o'clock used a 3-0 Vicryl popoff to create a ouzinkie by grabbing the skin distal portion of the colon and then the opening and then diomedes budding this colon open and then in between here using 2-3 simple stitches of 3-0 Vicryl to mature the colostomy. Colostomy matured very easily. Finger check through the colostomy easily into the abdomen through the fascia. We then recreated pneumoperitoneum using the port in the right lower quadrant and looked, it did not appear to be twisted at this point and then removed the right lower quadrant port and allowed the pneumoperitoneum to escape, closed the tissue here with a 3-0 Vicryl and then closed the skin with karan. Area was then cleaned and dried, dressing was placed over the karan and then a colostomy device was placed. The patient tolerated the procedure. Sponge, instrument and needle count correct at the end of the case, transferred to recovery room in stable condition. Dr. Saunders assisted in this case helping to make incisions, close incisions and helping to identify and hold anatomy out of the way. Job ID: [id number] DocumentID: [id number] Dictated Date: 12/05/2021 14:49:01 Cartridge Feeder Date: 12/05/2021 18:38:54 Dictated By: DO NATALIIA KRISHNAN
[2021-12-05] MEDS: NOREPINEPHRINE 8 MG/250 ML 250 ML IV SCH (20:15)
[2021-12-05] MEDS: hydrOXYzine (VISTARIL/ATARAX) 25 MG capsule/tablet PO PRN (21:15)
[2021-12-05] MEDS: traZODone 150 MG (DESYREL) TABLET PO PRN (21:15)
[2021-12-06] MEDS: NS IV 1000 ML 1,000 ML IV SCH ×4 (00:01→21:12)
--- NOTE | 2021-12-06 03:24 | Progress Note - Surgery ---
STEWARTMARGARITO A MED STUDENT 12/06/21 0324: Subjective Date Seen by a Provider: Dec 06, 2021 Time Seen by a Provider: 03:00 Subjective/Events-last exam Pt up in bed awake this morning. Pt reports she has 8/10 abdominal pain. Pt reports tolerating diet well. Pt denies fever, chills, cough, SOA, CP, palpitations. Focused Exam Lactate Level 12/03/21 06:01: Lactic Acid Level 0.93 Objective Exam Vital Signs Date Time Temp Pulse Resp B/P (MAP) Pulse Ox O2 Delivery O2 Flow Rate FiO2 12/06/21 00:01 86/58 12/06/21 00:00 96 Nasal Cannula 2.00 12/05/21 23:30 80/56 12/05/21 23:00 71 19 110/92 93 Room Air 12/05/21 22:00 71 26 115/83 95 Room Air 12/05/21 21:16 101/88 12/05/21 21:00 70 26 126/78 94 Room Air 12/05/21 20:15 92/76 12/05/21 20:00 68 15 119/76 96 Room Air 12/05/21 20:00 96 Room Air 12/05/21 19:58 115/84 12/05/21 19:52 36.3 12/05/21 19:00 85 12/05/21 19:00 73 13 105/72 96 Room Air 12/05/21 19:00 36.3 12/05/21 18:00 71 11 128/59 97 Room Air 12/05/21 17:00 74 9 114/62 94 Room Air 12/05/21 16:00 80 26 119/53 93 Room Air 12/05/21 16:00 97 Room Air 12/05/21 15:50 Nasal Cannula 3 12/05/21 15:35 10 106/63 (77) 95 Nasal Cannula 3 12/05/21 15:29 36.6 12 101/65 (77) 93 Nasal Cannula 4 12/05/21 15:19 14 104/67 (79) 94 OxyMask 10 12/05/21 15:15 OxyMask 10 12/05/21 15:09 18 114/83 (93) 95 OxyMask 10 12/05/21 14:59 16 120/78 (92) 93 OxyMask 10 12/05/21 14:49 16 113/86 (95) 91 OxyMask 10 12/05/21 14:39 OxyMask 10 12/05/21 14:39 36.3 16 111/76 (88) 90 OxyMask 10 12/05/21 12:59 122 12/05/21 12:45 121 27 102/74 94 Room Air 12/05/21 12:00 37.2 12/05/21 12:00 97 Room Air 12/05/21 12:00 123 20 92/69 91 Room Air 12/05/21 11:00 130 25 84/67 93 Room Air 12/05/21 10:00 140 23 85/58 91 Room Air 12/05/21 09:00 117 14 94/72 92 Room Air 12/05/21 08:00 114 21 93/70 91 Room Air 12/05/21 08:00 97 Room Air 12/05/21 08:00 36.6 12/05/21 07:00 113 15 96/69 91 Room Air 12/05/21 07:00 112 12/05/21 06:00 67 21 102/68 92 Room Air 12/05/21 05:00 69 20 95/68 92 Room Air 12/05/21 04:00 72 16 103/73 92 Room Air 12/05/21 04:00 36.5 12/05/21 04:00 97 Room Air I & O 12/06/21 06:59 Intake Total 500 ml Output Total 950 ml Balance -450 ml Capillary Refill : Less Than 3 Seconds General Appearance: No Apparent Distress, Chronically ill, Thin HEENT: PERRL/EOMI, TMs Normal, Normal ENT Inspection, Pharynx Normal, Moist Mucous Membranes Neck: Full Range of Motion, Normal Inspection, Non Tender, Supple, Carotid Bruit Respiratory: Chest Non Tender, No Accessory Muscle Use, No Respiratory Distress Cardiovascular: Tachycardia Gastrointestinal: soft, hernia (small umbilical), other (colostomy pink and viable with serosanguinous drainage in bag) Extremity: Non Tender, No Calf Tenderness, No Pedal Edema Neurologic/Psychiatric: Alert, Oriented x3 Skin: Normal Color, Warm/Dry Lymphatic: No Adenopathy Results Lab Laboratory Tests 12/05/21 04:40: White Blood Count 14.8H, Red Blood Count 3.18L, Hemoglobin 8.7L, Hematocrit 27L, Mean Corpuscular Volume 85, Mean Corpuscular Hemoglobin 27, Mean Corpuscular Hemoglobin Concent 32, Red Cell Distribution Width 18.0H, Platelet Count 343, Mean Platelet Volume 10.0, Immature Granulocyte % (Auto) 1, Neutrophils (%) (Auto) 83H, Lymphocytes (%) (Auto) 9L, Monocytes (%) (Auto) 6, Eosinophils (%) (Auto) 2, Basophils (%) (Auto) 0, Neutrophils # (Auto) 12.2H, Lymphocytes # (Auto) 1.4, Monocytes # (Auto) 0.8, Eosinophils # (Auto) 0.3, Basophils # (Auto) 0.0, Immature Granulocyte # (Auto) 0.1, Sodium Level 137, Potassium Level 3.6, Chloride Level 113H, Carbon Dioxide Level 14L, Anion Gap 10, Blood Urea Nitrogen 2L, Creatinine 0.60, Estimat Glomerular Filtration Rate 101, BUN/Creatinine Ratio 3, Glucose Level 99, Calcium Level 7.0L, Corrected Calcium 8.6, Phosphorus Level 1.3L, Magnesium Level 1.8, Total Bilirubin 0.3, Aspartate Amino Transf (AST/SGOT) 18, Alanine Aminotransferase (ALT/SGPT) 9, Alkaline Phosphatase 81, Total Protein 3.9L, Albumin 2.0L 12/05/21 10:45: Troponin I < 0.028, Thyroid Stimulating Hormone (TSH) 3.39 12/05/21 10:50: Blood Gas Puncture Site NA, Blood Gas Patient Temperature 37, Arterial Blood pH 7.37, Arterial Blood Partial Pressure CO2 27L, Arterial Blood Partial Pressure O2 59L, Arterial Blood HCO3 15*L, Arterial Blood Total CO2 16.0L, Arterial Blood Oxygen Saturation 91L, Arterial Blood Base Excess -9.0L, Brent Test NA, Blood Gas Ventilator Setting NO, Blood Gas Inspired Oxygen ROOM AIR Microbiology 12/03/21 C. difficile GDH Antigen & Toxins - Final, Complete 12/03/21 MRSA Screen - Final, Complete 12/01/21 Blood Culture - Preliminary, Resulted No growth 12/01/21 Urine Culture - Final, Complete Citrobacter freundii complex Enterococcus faecalis Assessment/Plan Assessment/Plan Assessment/Plan s/p diverting end colostomy on 12/05/21 Rectal mass with ulceration/perforation r/o abscess - awaiting pathology report Rectal Bleed secondary to above Anemia - hgb 8.7 down from 9.2 yesterday, continue to monitor Hypokalemia - 3.6 today, continue to monitor UTI - switched to levaquin to cover c. freunddi Hypotension, BP improved, continue levophed Tachycardia, rate currently in the mid 110's. Continue to monitor. Leukocytosis - WBC 14.8 today, up from 13.6 yesterday. Patient switched to levaquin, continue to monitor Awaiting pathology report from procedures Wednesday. C. Diff cultures were negative. Continue current diet. Continue to monitor. Clinical Quality Measures DVT/VTE Risk/Contraindication: Contraindications-Pharm: Other *list below* Other: gi bleed JOSE JUAN SAUNDERS DO 12/06/21 0353: Subjective Subjective/Events-last exam Patient awake in bed. Pain in abdomen 8/10 all over. About to get pain medication she says, which does make more tolerable. No output from colostomy. Still requiring pressors. Denies n/v fever sweats chills shortness of breath or chest pain at this time. Objective Exam General Appearance: No Apparent Distress, Chronically ill, Thin HEENT: PERRL/EOMI, Normal ENT Inspection Neck: Normal Inspection, Non Tender Respiratory: Chest Non Tender, No Accessory Muscle Use, No Respiratory Distress Cardiovascular: No JVD, Tachycardia Gastrointestinal: soft, other (colostomy pink and viable with serosanguinous drainage in bag) Extremity: Non Tender, No Calf Tenderness Neurologic/Psychiatric: Alert, Oriented x3 Skin: Normal Color, Warm/Dry Lymphatic: No Adenopathy Assessment/Plan Assessment/Plan Assessment/Plan Laparoscopic Miley's procedure with end colostomy for diversion. Rectal mass with ulceration/perforation r/o abscess - awaiting pathology report Rectal Bleed secondary to above Anemia -continue to monitor Hypokalemia - continue to monitor replace per protocol UTI Hypotension, requiring levophed Tachycardia, rate currently in the mid 110's. Continue to monitor. Leukocytosis On regular diet Pain control Scd's for dvt prophylaxis- rectal bleeding/anemia so anticoagulation not being given at this time Supervisory-Addendum Brief Verification & Attestation Participated in pt care: history, MDM, physical Personally performed: exam, history, MDM, supervision of care Care discussed with: Medical Student Procedures: n/a Results interpretation: Verified all documentation Verification and Attestation of Medical Student E/M Service A medical student performed and documented this service in my presence. I reviewed and verified all information documented by the medical student and made modifications to such information, when appropriate. I personally performed the physical exam and medical decision making. Jose Juan Saunders, Dec 06, 2021,03:57 MARGARITO WILLIAM MED STUDENT Dec 06, 2021 03:24 JOSE JUAN SAUNDERS DO Dec 06, 2021 03:53
[2021-12-06] MEDS: morphine INJ 4 MG/ML 1 ML (VIAL/SYRINGE) IV PRN ×5 (05:00→18:50)
[2021-12-06 05:07] LABS: BASOPHILS % (AUTO) 0 % (0-10)
[2021-12-06 05:09] LABS: EOSINOPHILS % (AUTO) 0 % (0-10); HEMATOCRIT 25 % (35-52); LYMPHOCYTES # (AUTO) 1.1 10^3/uL (1.0-4.0); LYMPHOCYTES % (AUTO) 5 % (12-44); MEAN CORPUSCULAR HEMOGLOBIN 28 pg (25-34); MEAN CORPUSCULAR HGB CONC 32 g/dL (32-36); MEAN CORPUSCULAR VOLUME 87 fL (80-99); MEAN PLATELET VOLUME 10.5 fL (9.0-12.2); MONOCYTES # (AUTO) 0.9 10^3/uL (0.0-1.0); MONOCYTES % (AUTO) 4 % (0-12); NEUTROPHILS # (AUTO) 19.2 10^3/uL (1.8-7.8); NEUTROPHILS % (AUTO) 90 % (42-75); PLATELET COUNT 300 10^3/uL (130-400); WHITE BLOOD COUNT 21.4 10^3/uL (4.3-11.0)
[2021-12-06 05:15] LABS: POTASSIUM 3.8 MMOL/L (3.6-5.0)
[2021-12-06 05:16] LABS: CALCIUM 6.6 MG/DL (8.5-10.1)
[2021-12-06 05:18] LABS: TOTAL PROTEIN 3.7 GM/DL (6.4-8.2)
[2021-12-06 05:19] LABS: BILIRUBIN,TOTAL 0.4 MG/DL (0.1-1.0)
[2021-12-06 05:21] LABS: CREATININE SERUM 0.51 MG/DL (0.60-1.30); PHOSPHORUS 1.8 MG/DL (2.3-4.7)
[2021-12-06 05:24] LABS: MAGNESIUM 1.5 MG/DL (1.6-2.4)
[2021-12-06] MEDS: KCL 20 MEQ TAB (K-DUR) PO SCH (05:48)
[2021-12-06] MEDS: POTASSIUM CL 10MEQ/50ML IVPB 50 ML IV SCH (05:48)
[2021-12-06] MEDS: MAGNESIUM 1 GM/100 ML IVPB 100 ML IV SCH ×2 (05:52→06:48)
--- NOTE | 2021-12-06 06:01 | Progress Note - Hospitalist ---
Subjective HPI/CC On Admission Date Seen by Provider: Dec 06, 2021 Time Seen by Provider: 11:30 CC: Rectal mass with bleeding and anemia HPI: 61 yr old [facility] clinic pt of [facility]. She was taken from atrocious living conditions to the ER due to weakness and rectal bleeding. It was assessed to have a rectal mass and it is draining blood. Pt was placed on antibiotic coverage. Dr. Donnelly was consulted. She will undergo EGD and colonoscopy tomorrow. We will continue treating her pain and check B12 and iron. We will initiate iron infusion if necessary. Subjective/Events-last exam Patient about the same Complaints of pain not relieved with pain meds Surgery went well yesterday Colostomy output is good Advancing diet per surgery She did have Covid 5 weeks ago No other concerns Still on pressor therapy for hypotension Baseline hypotension likely Review of Systems General: Fatigue, Malaise Gastrointestinal: Abdominal Pain Objective Exam Vital Signs Vital Signs Date Time Temp Pulse Resp B/P (MAP) Pulse Ox O2 Delivery O2 Flow Rate FiO2 12/07/21 05:19 88/45 12/07/21 04:00 91 High Flow N/C 10.00 12/07/21 04:00 36.9 12/07/21 03:00 110 16 12/06/21 16:54 3 Capillary Refill : Less Than 3 Seconds General Appearance: No Apparent Distress, WD/WN, Chronically ill, Thin Respiratory: Lungs Clear, Normal Breath Sounds Cardiovascular: Regular Rate, Rhythm Neurologic/Psychiatric: Alert, Oriented x3, Depressed Affect Results/Procedures Lab Laboratory Tests 12/07/21 04:35 Patient resulted labs reviewed. Assessment/Plan Assessment and Plan Assess & Plan/Chief Complaint Assessment: Hypovolemic shock from anemia d/t rectal tumor bleeding resulting in fluid resuscitation and IV Levophed therapy. Hematochezia Anemia Rectal mass with ulceration/ perforation status post diverting colostomy postop day #1 Hypokalemia Hyponatremia Possible UTI Plan: Hypovolemic shock from anemia d/t rectal tumor bleeding resulting in fluid resuscitation and IV pressor therapy. Rectal mass w ulceration/ perforation Hematochezia Anemia Continue Levophed therapy. PT is planned to undergo rectal mass resection with colostomy tomorrow by Dr. Donnelly. UTI Hypokalemia Hyponatremia Continue on Levaquin. Continue IVF replacement. Critical Care Critically Ill Patient Diagnosis/Problems Diagnosis/Problems (1) Perineal abscess Status: Acute (2) Failure to thrive in adult Status: Acute (3) Sepsis Status: Acute Qualifiers: Sepsis type: sepsis due to unspecified organism Sepsis acute organ dysfunction status: without acute organ dysfunction Qualified Codes: A41.9 - Sepsis, unspecified organism Clinical Quality Measures DVT/VTE Risk/Contraindication: Contraindications-Pharm: Other *list below* Other: gi bleed APOORVA YOUNGBLOOD DO Dec 06, 2021 06:01
[2021-12-06 07:15] VITALS: BP 93/58
[2021-12-06] MEDS: CYANOCOBALAMIN 1,000 MCG (VITAMIN B-12) TABLET PO SCH (07:35)
[2021-12-06] MEDS: hydrOXYzine (VISTARIL/ATARAX) 25 MG capsule/tablet PO PRN ×2 (07:36→21:09)
--- NOTE | 2021-12-06 07:46 | Physical Therapy Progress Note ---
Therapy Progress Note Patient had colostomy placement on 12-05-21. PT continues to require new orders to resume skilled therapy. TEJINDER DAVIS PT Dec 06, 2021 07:46
[2021-12-06] MEDS: SERTRALINE 100 MG (ZOLOFT) TAB PO SCH (08:22)
[2021-12-06] MEDS: PANTOPRAZOLE 40 MG (PROTONIX) TAB PO SCH (08:23)
[2021-12-06] MEDS: DOCUSATE SODIUM 100 MG (COLACE) CAP PO SCH ×2 (08:23→19:28)
[2021-12-06] MEDS: SENNOSIDES 8.6 MG (SENOKOT) TAB PO SCH ×2 (08:24→19:28)
[2021-12-06] MEDS: NOREPINEPHRINE 8 MG/250 ML 250 ML IV SCH ×2 (08:46→21:13)
[2021-12-06] MEDS: ONDANSETRON 4 MG/2 ML (SDV) Z0FRAN IV PRN (08:47)
[2021-12-06] MEDS ORDERED: IOHEXOL 350 MG/ML 100 ML (OMNIPAQUE 350) VIAL IV NR (09:00)
[2021-12-06] MEDS ORDERED: HOLD METFORMIN - RECEIVED CONTRAST 20 ML VIAL IV SCH (09:00)
[2021-12-06] MEDS ORDERED: NS 100 ML (IVPB) BAG IV ONE (09:00)
--- NOTE | 2021-12-06 09:51 | Cardiology Progress Note ---
Subjective Date Seen by Provider: Dec 06, 2021 Time Seen by Provider: 09:46 Subjective/Events-last exam Patient is laying down in bed, still having significant dyspnea Had surgery yesterday. Heart rate is better Review of Systems General: No Chills, No Night Sweats; Fatigue, Malaise; No Appetite, No Other HEENT: No Head Aches, No Visual Changes, No Eye Pain, No Ear Pain, No Dysphasia, No Sinus Congestion, No Post Nasal Drip, No Sore Throat, No Other Pulmonary: Dyspnea; No Cough, No Pleuritic Chest Pain, No Other Cardiovascular: No: Chest Pain, Palpitations, Orthopnea, Paroxysmal Noc. Dyspnea, Edema, Lt Headedness, Other Objective-Cardiology Exam Last Set of Vital Signs Vital Signs 12/01/21 12/06/21 12/06/21 18:30 08:00 09:00 Temp 37.4 Pulse 96 Resp 22 B/P (MAP) 100/64 Pulse Ox 91 O2 Delivery Room Air O2 Flow Rate 4.00 FiO2 21 I&O Intake and Output 12/06/21 00:00 Intake Total 1500 ml Output Total 1825 ml Balance -325 ml Intake Oral 200 ml IV Total 1300 ml Output Urine Total 1825 ml General: Alert, Oriented X3, Cooperative HEENT: Atraumatic, PERRLA Neck: Supple, No JVD, No Thyromegaly Lungs: Normal Air Movement, Other (Bilateral rhonchi) Heart: Regular Rate, Normal S1, Normal S2, No Murmurs Abdomen: Normal Bowel Sounds, Soft, No Tenderness, No Hepatosplenomegaly, No Masses Extremities: No Clubbing, No Cyanosis, No Edema, Normal Pulses, No Tenderness/Swelling Skin: No Rashes, No Breakdown, No Significant Lesion Neuro: Normal Speech, Normal Tone, Sensation Intact Psych/Mental Status: Mood NL Results Lab Laboratory Tests 12/06/21 05:00 A/P-Cardiology Admission Diagnosis Sepsis Septic shock Tachycardia UTI Assessment/Plan Sepsis with septic shock, rectal abscess, had I&D Status post endoscopic Finnegan with end colostomy Recovering slowly Acute on chronic respiratory failure, shortness of breath. Requiring high flow oxygen Patient had COVID-19 infection about 5 weeks ago, her Covid test reported as detected. Discussed the management plan with Dr. Adams and patient does not require isolation I will evaluate CT of the chest with IV contrast Tachycardia, sinus tachycardia, most probably reactive tachycardia secondary to sepsis and Levophed. Heart rate is better today. 2D echo showed prominent right heart chambers with pulmonary hypertension with PA pressure 45 to 50 mmHg. Hypotension, secondary to sepsis. Still borderline hypotensive. Perirectal abscess, status post diverting end colostomy on December 05, 2021 UTI, receiving antibiotics. History of anxiety, depression, managed by primary care physician Failure to thrive. SILVIA OH MD Dec 06, 2021 09:51
--- NOTE | 2021-12-06 09:57 | Diagnostic Imaging Report ---
PROCEDURE: CT angiography Chest TECHNIQUE: After intravenous administration of contrast, thin section axial CT angiography of the chest was performed. 3D MIP reconstructions were made. All CT scans use one or more of the following dose optimizing techniques: automated exposure control, MA and/or KvP adjustment based on a patient size and exam type, or iterative reconstruction. INDICATION: COVID positive. Failure to thrive. COMPARISON: CT chest, abdomen and pelvis of 10/13/2021 FINDINGS: Vasculature: No pulmonary emboli. No CT evidence of pulmonary hypertension or right ventricular strain. Thoracic aorta is normal in caliber. No aortic dissection or pseudoaneurysm. Heart and mediastinum: Visualized thyroid is normal. No axillary lymphadenopathy. A few small mediastinal lymph nodes are likely reactive in nature. No hilar lymphadenopathy. The heart is normal in size without pericardial effusion. Large hiatal hernia persists. There are some hyperattenuation within the hiatal hernia lumen which may represent ingested material versus less likely hemorrhage. Pleura: Large bilateral nonloculated pleural effusions. Lungs and airway: No endoluminal lesion in the trachea or central bronchi. Multifocal groundglass, septal thickening and reticulations are present throughout the aerated lungs. Near total relaxation atelectasis in bilateral lower lobes due to large effusions. Upper abdomen: Trace ascites in upper abdomen. Musculoskeletal: Diffuse body wall edema. No worrisome focal osseous lesions. IMPRESSION: 1. No pulmonary emboli or acute aortic syndrome. 2. Large bilateral pleural effusions are nonloculated. 3. Bilateral pulmonary abnormalities are likely due to pneumonitis and/or fibrosis from recent COVID 19. Consider followup CT chest in 3-6 months to assess if these resolve. 4. Hyperdensity in the gastric lumen of the large hiatal hernia may represent ingested material versus less likely hemorrhage. Please clinically correlate for features of upper GI bleed. Dictated by: Dictated on workstation # [id number]
--- NOTE | 2021-12-06 10:02 | Anesthesia-General Post-Op ---
General Patient Condition Mental Status/LOC: Same as Preop Cardiovascular: Satisfactory Nausea/Vomiting: Absent Respiratory: Satisfactory Pain: Controlled Complications: Absent Post Op Complications Complications None Follow Up Care/Instructions Patient Instructions None needed. Anesthesia/Patient Condition Patient Condition Patient is doing well, no complaints, stable vital signs, no apparent adverse anesthesia problems. No complications reported per nursing. D/C home per [facility] [place] Criteria: CARIE Rodgers CRNA Dec 06, 2021 10:02
[2021-12-06 16:54] VITALS: BP 93/58
[2021-12-06] MEDS ORDERED: RT-ALBUTEROL/IPRATROPIUM 3 ML (DUONEB) VIAL INH PRN (17:00)
--- NOTE | 2021-12-06 17:41 | Tele-ICU Progress Note ---
Subjective Date Seen by a Provider: Dec 06, 2021 Time Seen by a Provider: 08:46 Subjective/Events-last exam . (Tele-ICU Physician , Progress Note ) Available chart/ vitals / labs / Images reviewed Video assessment done using teleICU camera, rest of exam as per RN Discussed with RN , EXAM PER RN Events overnight : Afebrile FiO2 - 4 l I/O = + Drips: 125 lr Pressors: levo Consultants: sx Hospital course: (12/01) 61 y/o female admitted for failure to thrive, +UTI, perineal abscess. , GIB, liver mass (12/02) transferred to ICU for hypotension 12/05- s/p -s/p Lap Miley's with end colostomy for diversion A/P Shock , septic - cont levo - check VBG - suspect worsenign acidosis - cont IVF -Rectal mass with perforation and abscess, pending pathology -s/p Lap Miley's with end colostomy for diversion. 12/05/21 - cont abx - levofloxacin - as per sx UTI - cont abx Anemia -Rectal Bleed secondary to above - stabl HB , monitor Hypoxia , on 4l - probably VO ( positive > 9 L since admission ) - follow Lines : R IJ 12/04 (Central Line Necessity Reviewed) Rodriguez: + OG: Nutrition: Analgesia: Anxiety/ delirium VTE Prophylaxis: scd Stress Ulcer Prophylaxis: PPI Plans in collaboration with bedside consultants and IM MDs. Discussed with RN to reach out if any questions or concerns A total of 31 minutes of critical care time was devoted to this patient today, required to treat and/or prevent further deterioration of critical care condition ( as above) . Sepsis Event Evaluation Height, Weight, BMI Height: '" Weight: lbs. oz. kg; 15.39 BMI Method: Exam Exam Patient acknowledged, consented, and participated in this virtual visit which was conducted using real time audio/video Vital Signs Date Time Temp Pulse Resp B/P (MAP) Pulse Ox O2 Delivery O2 Flow Rate FiO2 12/06/21 17:00 96 14 98/63 95 Room Air 12/06/21 16:54 36.3 91 91 3 12/06/21 16:00 94 Nasal Cannula 4.00 12/06/21 16:00 91 20 92/59 95 Room Air 12/06/21 15:00 96 19 96/72 95 Room Air 12/06/21 14:00 96 19 89/72 92 Room Air 12/06/21 13:00 87 14 86/62 96 Room Air 12/06/21 12:35 92 12/06/21 12:00 100 13 96/59 91 Room Air 12/06/21 12:00 94 Nasal Cannula 4.00 12/06/21 12:00 36.6 12/06/21 11:00 95 13 89/61 91 Room Air 12/06/21 10:00 101 12 101/65 89 Room Air 12/06/21 09:00 96 22 100/64 91 Room Air 12/06/21 08:46 100 12/06/21 08:00 92 18 95/67 92 Room Air 12/06/21 08:00 94 Nasal Cannula 4.00 12/06/21 08:00 37.4 12/06/21 07:15 91 Nasal Cannula 6.00 12/06/21 07:00 91 12/06/21 07:00 107 24 93/58 94 Room Air 12/06/21 06:00 81 19 95/65 92 Room Air 12/06/21 05:00 93 12 105/50 91 Room Air 12/06/21 04:00 85 13 100/86 90 Room Air 12/06/21 04:00 94 Nasal Cannula 4.00 12/06/21 03:00 80 12 99/66 92 Room Air 12/06/21 02:00 71 13 109/68 91 Room Air 12/06/21 01:00 72 12/06/21 01:00 66 13 103/66 92 Room Air 12/06/21 00:01 86/58 12/06/21 00:00 72 28 102/59 93 Room Air 12/06/21 00:00 96 Nasal Cannula 2.00 12/05/21 23:30 80/56 12/05/21 23:00 71 19 110/92 93 Room Air 12/05/21 22:00 71 26 115/83 95 Room Air 12/05/21 21:16 101/88 12/05/21 21:00 70 26 126/78 94 Room Air 12/05/21 20:15 92/76 12/05/21 20:00 68 15 119/76 96 Room Air 12/05/21 20:00 96 Room Air 12/05/21 19:58 115/84 12/05/21 19:52 36.3 12/05/21 19:00 85 12/05/21 19:00 73 13 105/72 96 Room Air 12/05/21 19:00 36.3 12/05/21 18:00 71 11 128/59 97 Room Air I & O 12/06/21 07:00 Intake Total 800 ml Output Total 1080 ml Balance -280 ml Height & Weight Height: '" Weight: lbs. oz. kg; 15.39 BMI Method: General Appearance: WD/WN, Chronically ill, Mild Distress, Thin HEENT: PERRL/EOMI, Normal ENT Inspection Neck: Normal Inspection, Non Tender Respiratory: Lungs Clear, Normal Breath Sounds Cardiovascular: Tachycardia Capillary Refill: Less Than 3 Seconds Gastrointestinal: soft, other (colostomy pink and viable with serosanguinous drainage in bag) Extremity: Non Tender, No Calf Tenderness Neurologic/Psychiatric: Alert, Oriented x3 Skin: Normal Color, Warm/Dry Lymphatic: No Adenopathy Results Lab Laboratory Tests 12/05/21 04:40 12/06/21 05:00 Assessment/Plan Assessment/Plan ` SHAGGY CHANG MD Dec 06, 2021 17:40
[2021-12-06] MEDS: RT-ALBUTEROL/IPRATROPIUM 3 ML (DUONEB) VIAL INH SCH ×2 (18:31→22:32)
[2021-12-06] MEDS: traZODone 150 MG (DESYREL) TABLET PO PRN (21:08)
[2021-12-06] MEDS: MELATONIN 3 MG TABLET PO PRN (21:08)
[2021-12-07] MEDS: RT-ALBUTEROL/IPRATROPIUM 3 ML (DUONEB) VIAL INH SCH ×6 (02:10→22:26)
[2021-12-07 04:42] LABS: BASOPHILS % (AUTO) 0 % (0-10); EOSINOPHILS % (AUTO) 0 % (0-10); HEMATOCRIT 25 % (35-52); LYMPHOCYTES # (AUTO) 0.7 10^3/uL (1.0-4.0); LYMPHOCYTES % (AUTO) 3 % (12-44); MEAN CORPUSCULAR HEMOGLOBIN 28 pg (25-34); MEAN CORPUSCULAR HGB CONC 32 g/dL (32-36); MEAN CORPUSCULAR VOLUME 88 fL (80-99); MEAN PLATELET VOLUME 10.4 fL (9.0-12.2); MONOCYTES # (AUTO) 0.8 10^3/uL (0.0-1.0); MONOCYTES % (AUTO) 3 % (0-12); NEUTROPHILS # (AUTO) 25.7 10^3/uL (1.8-7.8); NEUTROPHILS % (AUTO) 94 % (42-75); PLATELET COUNT 275 10^3/uL (130-400); WHITE BLOOD COUNT 27.5 10^3/uL (4.3-11.0)
[2021-12-07 04:54] LABS: ALBUMIN 1.9 GM/DL (3.2-4.5)
[2021-12-07 04:55] LABS: POTASSIUM 3.8 MMOL/L (3.6-5.0)
[2021-12-07 04:56] LABS: CALCIUM 7.1 MG/DL (8.5-10.1)
[2021-12-07 04:57] LABS: TOTAL PROTEIN 3.7 GM/DL (6.4-8.2)
[2021-12-07 04:59] LABS: BILIRUBIN,TOTAL 0.4 MG/DL (0.1-1.0)
[2021-12-07 05:01] LABS: CREATININE SERUM 0.57 MG/DL (0.60-1.30)
[2021-12-07 05:04] LABS: MAGNESIUM 1.8 MG/DL (1.6-2.4)
[2021-12-07] MEDS: NOREPINEPHRINE 8 MG/250 ML 250 ML IV SCH ×2 (05:19→13:23)
[2021-12-07] MEDS: KCL 20 MEQ TAB (K-DUR) PO SCH (06:02)
[2021-12-07] MEDS: POTASSIUM CL 10MEQ/50ML IVPB 50 ML IV SCH (06:02)
--- NOTE | 2021-12-07 07:25 | Progress Note - Surgery ---
DIGNA THACKER 12/07/21 0725: Subjective Date Seen by a Provider: Dec 07, 2021 Time Seen by a Provider: 07:10 Subjective/Events-last exam Ms. Billy is s/p day 2 for laparoscopic Miley's procedure with end colostomy for diversion. This morning she reports that her abdominal pain is an 8/10 but it is slowly improving. She reports one soft bowel movement in her colostomy bag yesterday. She is only eating a liquid diet currently. She is able to get up and move around but reports it does hurt a bit to move around. This morning she complains of shortness of breath and trouble breathing. She is still hypotensive requiring Levophed. CT yesterday showed no pulmonary emboli, large bilateral pleural effusions without loculations, lung changes s/p Covid, and a hyperdensity in the gastric lumen. Review of Systems General: No Chills, No Fatigue Pulmonary: Dyspnea, Cough Cardiovascular: No: Chest Pain, Palpitations Gastrointestinal: Nausea, Vomiting, Abdominal Pain Genitourinary: Other (Rodriguez) Neurological: No: Weakness, Confusion Objective Exam Vital Signs Date Time Temp Pulse Resp B/P (MAP) Pulse Ox O2 Delivery O2 Flow Rate FiO2 12/07/21 06:48 89 High Flow N/C 10.00 12/07/21 05:19 88/45 12/07/21 04:30 82/74 12/07/21 04:00 91 High Flow N/C 10.00 12/07/21 04:00 36.9 12/07/21 03:00 110 16 86/52 91 Nasal Cannula 10.00 12/07/21 02:10 91 High Flow N/C 10.00 12/07/21 02:00 111 18 107/71 86 Nasal Cannula 10.00 12/07/21 01:00 120 12/07/21 01:00 105 20 85/57 90 Nasal Cannula 10.00 12/07/21 00:00 93 High Flow N/C 15.00 12/07/21 00:00 102 31 88/54 92 Nasal Cannula 10.00 12/06/21 23:00 103 22 100/58 94 Nasal Cannula 10.00 12/06/21 22:32 96 High Flow N/C 10.00 12/06/21 22:30 85/52 12/06/21 22:00 107 26 85/52 93 Nasal Cannula 10.00 12/06/21 21:13 97/60 12/06/21 21:00 96 12 92/82 91 Nasal Cannula 10.00 12/06/21 20:00 96 26 101/56 87 Nasal Cannula 10.00 12/06/21 20:00 95 High Flow N/C 10.00 12/06/21 19:30 77/55 12/06/21 19:29 37.8 12/06/21 19:00 96 12/06/21 19:00 95 32 94/56 91 Nasal Cannula 10.00 12/06/21 18:31 93 High Flow N/C 10.00 12/06/21 18:00 96 17 96/72 95 Nasal Cannula 10.00 12/06/21 17:00 96 14 98/63 95 Nasal Cannula 4.00 12/06/21 16:54 36.3 91 91 3 12/06/21 16:00 94 Nasal Cannula 4.00 12/06/21 16:00 91 20 92/59 95 Nasal Cannula 4.00 12/06/21 15:00 96 19 96/72 95 Nasal Cannula 4.00 12/06/21 14:00 96 19 89/72 92 Nasal Cannula 4.00 12/06/21 13:00 87 14 86/62 96 Nasal Cannula 4.00 12/06/21 12:35 92 12/06/21 12:00 100 13 96/59 91 Nasal Cannula 4.00 12/06/21 12:00 94 Nasal Cannula 4.00 12/06/21 12:00 36.6 12/06/21 11:00 95 13 89/61 91 Nasal Cannula 4.00 12/06/21 10:00 101 12 101/65 89 Nasal Cannula 4.00 12/06/21 09:00 96 22 100/64 91 Nasal Cannula 4.00 12/06/21 08:46 100 12/06/21 08:00 92 18 95/67 92 Nasal Cannula 4.00 12/06/21 08:00 94 Nasal Cannula 4.00 12/06/21 08:00 37.4 I & O 12/07/21 06:59 Intake Total 1650 ml Output Total 875 ml Balance 775 ml Capillary Refill : Less Than 3 Seconds General Appearance: No Apparent Distress, WD/WN, Chronically ill, Thin HEENT: PERRL/EOMI; No Scleral Icterus (L), No Scleral Icterus (R) Neck: Normal Inspection, Non Tender Respiratory: Chest Non Tender, Normal Breath Sounds, Decreased Breath Sounds (Bilateral lower lobers), Rhonci (Bilateral) Cardiovascular: Normal Peripheral Pulses (Radial and DP), Tachycardia Gastrointestinal: soft, tenderness, other (Colostomy pink and viable. Incisions covered with bandages.) Extremity: Non Tender, No Calf Tenderness, No Pedal Edema Neurologic/Psychiatric: Alert, Oriented x3 Skin: Normal Color, Warm/Dry Lymphatic: No Adenopathy (Head and neck) Results Lab Laboratory Tests 12/07/21 04:35: White Blood Count 27.5H, Red Blood Count 2.88L, Hemoglobin 8.0L, Hematocrit 25L, Mean Corpuscular Volume 88, Mean Corpuscular Hemoglobin 28, Mean Corpuscular Hemoglobin Concent 32, Red Cell Distribution Width 18.6H, Platelet Count 275, Mean Platelet Volume 10.4, Immature Granulocyte % (Auto) 1, Neutrophils (%) (Auto) 94H, Lymphocytes (%) (Auto) 3L, Monocytes (%) (Auto) 3, Eosinophils (%) (Auto) 0, Basophils (%) (Auto) 0, Neutrophils # (Auto) 25.7H, Lymphocytes # (Auto) 0.7L, Monocytes # (Auto) 0.8, Eosinophils # (Auto) 0.0, Basophils # (Auto) 0.0, Immature Granulocyte # (Auto) 0.2H, Sodium Level 134L, Potassium Level 3.8, Chloride Level 109H, Carbon Dioxide Level 17L, Anion Gap 8, Blood Urea Nitrogen 3L, Creatinine 0.57L, Estimat Glomerular Filtration Rate 103, BUN/Creatinine Ratio 5, Glucose Level 122H, Calcium Level 7.1L, Corrected Calcium 8.8, Phosphorus Level 2.0L, Magnesium Level 1.8, Total Bilirubin 0.4, Aspartate Amino Transf (AST/SGOT) 29, Alanine Aminotransferase (ALT/SGPT) 11, Alkaline Phosphatase 102, Total Protein 3.7L, Albumin 1.9L Microbiology 12/03/21 C. difficile GDH Antigen & Toxins - Final, Complete 12/03/21 MRSA Screen - Final, Complete 12/01/21 Blood Culture - Preliminary, Resulted No growth 4/4/22 Urine Culture - Final, Complete Citrobacter freundii complex Enterococcus faecalis Radiology PROCEDURE: CT angiography Chest TECHNIQUE: After intravenous administration of contrast, thin section axial CT angiography of the chest was performed. 3D MIP reconstructions were made. All CT scans use one or more of the following dose optimizing techniques: automated exposure control, MA and/or KvP adjustment based on a patient size and exam type, or iterative reconstruction. INDICATION: COVID positive. Failure to thrive. COMPARISON: CT chest, abdomen and pelvis of 10/13/2021 FINDINGS: Vasculature: No pulmonary emboli. No CT evidence of pulmonary hypertension or right ventricular strain. Thoracic aorta is normal in caliber. No aortic dissection or pseudoaneurysm. Heart and mediastinum: Visualized thyroid is normal. No axillary lymphadenopathy. A few small mediastinal lymph nodes are likely reactive in nature. No hilar lymphadenopathy. The heart is normal in size without pericardial effusion. Large hiatal hernia persists. There are some hyperattenuation within the hiatal hernia lumen which may represent ingested material versus less likely hemorrhage. Pleura: Large bilateral nonloculated pleural effusions. Lungs and airway: No endoluminal lesion in the trachea or central bronchi. Multifocal groundglass, septal thickening and reticulations are present throughout the aerated lungs. Near total relaxation atelectasis in bilateral lower lobes due to large effusions. Upper abdomen: Trace ascites in upper abdomen. Musculoskeletal: Diffuse body wall edema. No worrisome focal osseous lesions. IMPRESSION: 1. No pulmonary emboli or acute aortic syndrome. 2. Large bilateral pleural effusions are nonloculated. 3. Bilateral pulmonary abnormalities are likely due to pneumonitis and/or fibrosis from recent COVID 19. Consider followup CT chest in 3-6 months to assess if these resolve. 4. Hyperdensity in the gastric lumen of the large hiatal hernia may represent ingested material versus less likely hemorrhage. Please clinically correlate for features of upper GI bleed. Assessment/Plan Assessment/Plan Assessment/Plan s/p Laparoscopic Miley's procedure with end colostomy for diversion - post-op day 2 Rectal mass with ulceration/perforation - r/o abscess - awaiting pathology Rectal bleed - d/t above Bilateral pleural effusions - Large, confirmed on CT - Likely transudative d/t hypoalbuminemia Anemia - 8.0 this morning - Stable. Trend. Hyponatremia - 134 this morning, trending down UTI - On Levofloxacin day 5 of 6 - C. freundii complex Hypotension - Requiring Levophed Leukocytosis Tachycardia Hypokalemia, resolved IVF held due to increasing oxygen requirement and crackles in lungs Continue Levofloxacin for UTI, on day 5 of 6 Hypotension requiring Levophed at 28.7 mL/hr On regular diet, patient opting for liquid diet at this time Pain control as needed, patient reports pain levels are improving SCD for DVT ppx, holding anticoagulation at this time d/t rectal bleeding/anemia Consider U/S to assess possibility of draining pleural effusions Consult PT/OT Clinical Quality Measures DVT/VTE Risk/Contraindication: Contraindications-Pharm: Other *list below* Other: gi bleed JOSE JUAN HE DO 12/07/21 1614: Subjective Subjective/Events-last exam Patient with increasing shortness of breath. Still on pressors. Pain in abdomen slowly improving. Ct chest showing large b/l pleural effusions. She reports some stool from colostomy. Weak. Slight nausea. Denies vomiting fever sweats chills or chest pain. Objective Exam General Appearance: No Apparent Distress, Chronically ill HEENT: PERRL/EOMI, Normal ENT Inspection Neck: Normal Inspection, Non Tender Respiratory: Chest Non Tender, No Accessory Muscle Use, Wheezing (minimally labored breathing), Other Cardiovascular: No JVD, Tachycardia Gastrointestinal: soft, tenderness, other (Colostomy pink and viable, couple minute areas that are a little dusky or bruised. Incisions c/d/i) Extremity: Non Tender, No Calf Tenderness Neurologic/Psychiatric: Alert, Oriented x3, Normal Mood/Affect Skin: Normal Color, Warm/Dry Lymphatic: No Adenopathy (Head and neck) Assessment/Plan Assessment/Plan Assessment/Plan s/p Laparoscopic Miley's procedure with end colostomy for diversion - post-op day 2 Rectal mass with ulceration/perforation - r/o abscess - awaiting pathology Rectal bleed - d/t above Bilateral pleural effusions - Large, confirmed on CT - Likely transudative d/t hypoalbuminemia Anemia - 8.0 this morning - Stable. Trend. Hyponatremia - 134 this morning, trending down UTI - On Levofloxacin day 5 of 6 - C. freundii complex Hypotension - Requiring Levophed Leukocytosis Tachycardia Hypokalemia, resolved IVF held due to increasing oxygen requirement and crackles in lungs Continue Levofloxacin for UTI, on day 5 of 6 Hypotension requiring Levophed at 28.7 mL/hr On regular diet, patient opting for liquid diet at this time Pain control as needed, patient reports pain levels are improving SCD for DVT ppx, holding anticoagulation at this time d/t rectal bleeding/anemia Consult PT/OT We discussed risks and benefits of u/s guided thoracentesis and she understands and wishes to proceed. Will do u/s and drain the larger side since b/l. PROCEDURE: U/s guided left thoracentesis U/s was used to scan both the right and left chest. Large left pleural effusion, minimal right pleural effusion. The left chest was then prepped and draped in sterile fashion, time out was performed. 3 mL of 1% lidocaine was used to anesthetize the area. 11 blade scalpel was used to make small skin incision left back where largest pocket was. Safety-centesis needle and catheter advance through the posterior chest wall till straw colored fluid drawn back and catheter was advanced. 700 mL of fluid withdrawn and catheter removed and sterile bandage applied. Patient tolerated well without complication. Chest x ray pending. Supervisory-Addendum Brief Verification & Attestation Participated in pt care: history, MDM, physical Personally performed: exam, history, MDM, supervision of care Care discussed with: Medical Student Procedures: n/a Procedure type: other (Left u/s guided thoracentesis performed by me) Results interpretation: Verified all documentation Verification and Attestation of Medical Student E/M Service A medical student performed and documented this service in my presence. I reviewed and verified all information documented by the medical student and made modifications to such information, when appropriate. I personally performed the physical exam and medical decision making. Jose Juan He, Dec 07, 2021,16:14 DIGNA THACKER Dec 07, 2021 07:25 JOSE JUAN HE DO Dec 07, 2021 16:14
[2021-12-07] MEDS: DOCUSATE SODIUM 100 MG (COLACE) CAP PO SCH ×2 (07:31→20:22)
[2021-12-07] MEDS: SENNOSIDES 8.6 MG (SENOKOT) TAB PO SCH ×2 (07:32→20:22)
--- NOTE | 2021-12-07 07:37 | Progress Note - Hospitalist ---
Subjective HPI/CC On Admission Date Seen by Provider: Dec 07, 2021 Time Seen by Provider: 11:30 CC: Rectal mass with bleeding and anemia HPI: 61 yr old [facility] clinic pt of [facility]. She was taken from atrocious living conditions to the ER due to weakness and rectal bleeding. It was assessed to have a rectal mass and it is draining blood. Pt was placed on antibiotic coverage. Dr. Donnelly was consulted. She will undergo EGD and colonoscopy tomorrow. We will continue treating her pain and check B12 and iron. We will initiate iron infusion if necessary. Subjective/Events-last exam Patient remains critical Pressor therapy is still required Reviewed labs Elevated white count on day 5 of Levaquin Patient complains of pain but does not appear to be in distress Narcotics must be used sparingly due to hypotension Patient really has a very poor prognosis Review of Systems General: Fatigue, Malaise Gastrointestinal: Abdominal Pain Objective Exam Vital Signs Vital Signs Date Time Temp Pulse Resp B/P (MAP) Pulse Ox O2 Delivery O2 Flow Rate FiO2 12/08/21 03:00 128 21 99/60 74 NIV Bilevel 50.00 12/07/21 23:56 37.2 12/06/21 16:54 3 Capillary Refill : Less Than 3 Seconds General Appearance: No Apparent Distress, WD/WN, Chronically ill, Thin Respiratory: Lungs Clear, Normal Breath Sounds Cardiovascular: Regular Rate, Rhythm Neurologic/Psychiatric: Alert, Oriented x3, No Motor/Sensory Deficits, Normal Mood/Affect Results/Procedures Lab Laboratory Tests 12/07/21 16:08 12/08/21 04:08 Patient resulted labs reviewed. Assessment/Plan Assessment and Plan Assess & Plan/Chief Complaint Assessment: Hypovolemic shock from anemia d/t rectal tumor bleeding resulting in fluid resuscitation and IV Levophed therapy. Hematochezia Anemia Rectal mass with ulceration/ perforation status post diverting colostomy postop day #3 Hypokalemia Hyponatremia UTI Plan: Hypovolemic shock from anemia d/t rectal tumor bleeding resulting in fluid resuscitation and IV pressor therapy. Rectal mass w ulceration/ perforation Hematochezia Anemia Continue Levophed therapy. PT is planned to undergo rectal mass resection with colostomy tomorrow by Dr. Donnelly. UTI Hypokalemia Hyponatremia Continue on Levaquin. Continue IVF replacement. Critical Care Critically Ill Patient Diagnosis/Problems Diagnosis/Problems (1) Perineal abscess Status: Acute (2) Failure to thrive in adult Status: Acute (3) Sepsis Status: Acute Qualifiers: Sepsis type: sepsis due to unspecified organism Sepsis acute organ dys function status: without acute organ dysfunction Qualified Codes: A41.9 - Sepsis, unspecified organism Clinical Quality Measures DVT/VTE Risk/Contraindication: Contraindications-Pharm: Other *list below* Other: gi bleed APOORVA YOUNGBLOOD DO Dec 07, 2021 07:37
[2021-12-07] MEDS: NS IV 1000 ML 1,000 ML IV SCH ×2 (07:50→16:25)
[2021-12-07] MEDS: PANTOPRAZOLE 40 MG (PROTONIX) TAB PO SCH (07:50)
[2021-12-07] MEDS: CYANOCOBALAMIN 1,000 MCG (VITAMIN B-12) TABLET PO SCH (07:50)
[2021-12-07] MEDS: SERTRALINE 100 MG (ZOLOFT) TAB PO SCH (07:50)
--- NOTE | 2021-12-07 10:20 | Diagnostic Imaging Report ---
INDICATION: Pleural effusion. Comparison is made with prior exam of 12/01/2021. FINDINGS: The heart size is normal. There is diffuse bilateral airspace disease. There is a right pleural effusion. No pneumothorax. Mediastinum unremarkable. IMPRESSION: Diffuse bilateral airspace disease with small right pleural effusion. Some underlying central pulmonary venous congestion cannot be excluded. Dictated by: Dictated on workstation # [id number]
[2021-12-07 10:55] LABS: GLUCOSE,BODY FLUID 127 MG/DL; TOTAL PROTEIN,BODY FLUID < 0.8 G/DL
[2021-12-07 10:58] LABS: BODY FLUID APPEARENCE SLT CLDY; BODY FLUID COLOR YELLOW; BODY FLUID SOURCE PLEURAL; BODY FLUID WBC TOTAL COUNT 407 /uL
[2021-12-07 10:59] LABS: BODY FLUID RBC COUNT 13 /uL
[2021-12-07 11:05] LABS: BF OTHER CELLS 22 %; LYMPHOCYTES,BODY FLUID 0 %
[2021-12-07] MEDS: ACETAMINOPHEN 325 MG TABLET PO PRN (13:23)
--- NOTE | 2021-12-07 14:37 | Cardiology Progress Note ---
Subjective Date Seen by Provider: Dec 07, 2021 Time Seen by Provider: 14:32 Subjective/Events-last exam Patient was seen at bedside, still having dyspnea. No chest pain. No palpitation Review of Systems General: No Chills, No Night Sweats, No Fatigue, No Malaise, No Appetite, No Other HEENT: No Head Aches, No Visual Changes, No Eye Pain, No Ear Pain, No Dysphasia, No Sinus Congestion, No Post Nasal Drip, No Sore Throat, No Other Pulmonary: Dyspnea; No Cough, No Pleuritic Chest Pain, No Other Cardiovascular: No: Chest Pain, Palpitations, Orthopnea, Paroxysmal Noc. Dyspnea, Edema, Lt Headedness, Other Objective-Cardiology Exam Last Set of Vital Signs Vital Signs 12/06/21 12/07/21 12/07/21 16:54 11:46 14:00 Temp 36.0 Pulse 93 Resp 26 B/P (MAP) 96/61 Pulse Ox 92 O2 Delivery Nasal Cannula O2 Flow Rate 8.00 FiO2 3 I&O Intake and Output 12/07/21 00:00 Intake Total 1650 ml Output Total 880 ml Balance 770 ml Intake Oral 1300 ml IV Total 350 ml Output Urine Total 850 ml Stool Total 30 ml General: Alert, Oriented X3, Cooperative HEENT: Atraumatic, PERRLA Neck: Supple, No JVD, No Thyromegaly Lungs: Normal Air Movement, Other (Bilateral rhonchi) Heart: Regular Rate, Normal S1, Normal S2, No Murmurs Abdomen: Normal Bowel Sounds, Soft, No Tenderness, No Hepatosplenomegaly, No Masses Extremities: No Clubbing, No Cyanosis, No Edema, Normal Pulses, No Tenderness/Swelling Skin: No Rashes, No Breakdown, No Significant Lesion Neuro: Normal Speech, Normal Tone, Sensation Intact Psych/Mental Status: Mood NL Results Lab Laboratory Tests 12/07/21 04:35 A/P-Cardiology Admission Diagnosis Sepsis Septic shock Tachycardia UTI Assessment/Plan Sepsis with septic shock, rectal abscess, had I&D, awaiting pathology Status post endoscopic Miley's with end colostomy Recovering slowly Acute on chronic respiratory failure, shortness of breath. Requiring high flow oxygen Patient had COVID-19 infection about 5 weeks ago, her Covid test reported as detected. Discussed the management plan with Dr. Adams and patient does not require isolation CT scan showed scarring and fibrosis secondary to Covid and extensive pleural effusion Status post thoracentesis done by Dr. Saunders. Tachycardia, sinus tachycardia, most probably reactive tachycardia secondary to sepsis and Levophed. Heart rate is better today. 2D echo showed prominent right heart chambers with pulmonary hypertension with PA pressure 45 to 50 mmHg. Hypotension, secondary to sepsis. Still borderline hypotensive. Perirectal abscess, status post diverting end colostomy on December 05, 2021 UTI, receiving antibiotics. History of anxiety, depression, managed by primary care physician Failure to thrive. SILVIA OH MD Dec 07, 2021 14:37
--- NOTE | 2021-12-07 15:46 | Tele-ICU Progress Note ---
Subjective Date Seen by a Provider: Dec 07, 2021 Time Seen by a Provider: 15:46 Subjective/Events-last exam (Tele-ICU Physician , Progress Note ) Available chart/ vitals / labs / Images reviewed Video assessment done using teleICU camera, rest of exam as per RN Discussed with RN , EXAM PER RN Events overnight : Afebrile FiO2 - 10 L I/O = + Drips: 125 lr Pressors: levo Consultants: sx Hospital course: (12/01) 61 y/o female admitted for failure to thrive, +UTI, perineal abscess. , GIB, liver mass (12/02) transferred to ICU for hypotension 12/05- s/p -s/p Lap Miley's with end colostomy for diversion 12/07 - s/p THORO on RIGHT A/P Shock , septic - cont levo - check VBG - suspect worsenign acidosis - cont IVF -Rectal mass with perforation and abscess, pending pathology -s/p Lap Miley's with end colostomy for diversion. 12/05/21 - cont abx - levofloxacin - as per sx Acute resp failure - - probably VO ( positive > 9 L since admission ) - - CTA 12/06 - no PE - s/p THORA 12/07 RIGHT ID UTI - cont abx -s/p COVID-19 infection about 5 weeks ago Anemia -Rectal Bleed secondary to above - stabl HB , monitor Lines : R IJ 12/04 (Central Line Necessity Reviewed) Rodriguez: + OG: Nutrition: Analgesia: Anxiety/ delirium VTE Prophylaxis: scd Stress Ulcer Prophylaxis: PPI Plans in collaboration with bedside consultants and IM MDs. Discussed with RN to reach out if any questions or concerns A total of 31 minutes of critical care time was devoted to this patient today, required to treat and/or prevent further deterioration of critical care condition ( as above) . Sepsis Event Evaluation Height, Weight, BMI Height: '" Weight: lbs. oz. kg; 15.39 BMI Method: Exam Exam Patient acknowledged, consented, and participated in this virtual visit which was conducted using real time audio/video Vital Signs Date Time Temp Pulse Resp B/P (MAP) Pulse Ox O2 Delivery O2 Flow Rate FiO2 12/07/21 15:00 97 24 91/57 92 Nasal Cannula 8.00 12/07/21 14:52 92 High Flow N/C 8.00 12/07/21 14:00 93 26 96/61 92 Nasal Cannula 8.00 12/07/21 13:23 99/79 12/07/21 13:00 92 25 99/71 96 Nasal Cannula 10.00 12/07/21 12:54 91 12/07/21 12:00 93 26 100/63 96 Nasal Cannula 10.00 12/07/21 12:00 93 High Flow N/C 10.00 12/07/21 11:46 36.0 94 24 93/62 95 Nasal Cannula 10.00 12/07/21 11:00 96 18 98/64 96 Nasal Cannula 10.00 12/07/21 10:45 97 High Flow N/C 10.00 12/07/21 10:00 101 27 99/59 90 Nasal Cannula 10.00 12/07/21 09:00 106 22 94/69 93 Nasal Cannula 10.00 12/07/21 08:00 114 27 82/60 90 Nasal Cannula 10.00 12/07/21 07:42 36.4 102 20 91/62 91 Nasal Cannula 10.00 12/07/21 07:33 92 High Flow N/C 10.00 12/07/21 07:00 109 13 80/58 91 Nasal Cannula 10.00 12/07/21 07:00 109 12/07/21 06:48 89 High Flow N/C 10.00 12/07/21 05:19 88/45 12/07/21 04:30 82/74 12/07/21 04:00 91 High Flow N/C 10.00 12/07/21 04:00 36.9 12/07/21 03:00 110 16 86/52 91 Nasal Cannula 10.00 12/07/21 02:10 91 High Flow N/C 10.00 12/07/21 02:00 111 18 107/71 86 Nasal Cannula 10.00 12/07/21 01:00 120 12/07/21 01:00 105 20 85/57 90 Nasal Cannula 10.00 12/07/21 00:00 93 High Flow N/C 15.00 12/07/21 00:00 102 31 88/54 92 Nasal Cannula 10.00 12/06/21 23:00 103 22 100/58 94 Nasal Cannula 10.00 12/06/21 22:32 96 High Flow N/C 10.00 12/06/21 22:30 85/52 12/06/21 22:00 107 26 85/52 93 Nasal Cannula 10.00 12/06/21 21:13 97/60 12/06/21 21:00 96 12 92/82 91 Nasal Cannula 10.00 12/06/21 20:00 96 26 101/56 87 Nasal Cannula 10.00 12/06/21 20:00 95 High Flow N/C 10.00 12/06/21 19:30 77/55 12/06/21 19:29 37.8 12/06/21 19:00 96 12/06/21 19:00 95 32 94/56 91 Nasal Cannula 10.00 12/06/21 18:31 93 High Flow N/C 10.00 12/06/21 18:00 96 17 96/72 95 Nasal Cannula 10.00 12/06/21 17:00 96 14 98/63 95 Nasal Cannula 4.00 12/06/21 16:54 36.3 91 91 3 12/06/21 16:00 94 Nasal Cannula 4.00 12/06/21 16:00 91 20 92/59 95 Nasal Cannula 4.00 I & O 12/07/21 07:00 Intake Total 1650 ml Output Total 875 ml Balance 775 ml Height & Weight Height: '" Weight: lbs. oz. kg; 15.39 BMI Method: General Appearance: No Apparent Distress, WD/WN, Chronically ill, Thin HEENT: PERRL/EOMI; No Scleral Icterus (L), No Scleral Icterus (R) Neck: Normal Inspection, Non Tender Respiratory: Chest Non Tender, Normal Breath Sounds, Decreased Breath Sounds (Bilateral lower lobers), Rhonci (Bilateral) Cardiovascular: Normal Peripheral Pulses (Radial and DP), Tachycardia Capillary Refill: Less Than 3 Seconds Gastrointestinal: soft, tenderness, other (Colostomy pink and viable. Incisions covered with bandages.) Extremity: Non Tender, No Calf Tenderness, No Pedal Edema Neurologic/Psychiatric: Alert, Oriented x3 Skin: Normal Color, Warm/Dry Lymphatic: No Adenopathy (Head and neck) Results Lab Laboratory Tests 12/06/21 05:00 12/07/21 04:35 Assessment/Plan Assessment/Plan ` SHAGGY CHANG MD Dec 07, 2021 15:46
[2021-12-07] MEDS ORDERED: morphine INJ 10 MG/ML 1ML (SYR OR VIAL) IVP STA (15:57)
[2021-12-07] MEDS: hydrOXYzine (VISTARIL/ATARAX) 25 MG capsule/tablet PO PRN (16:12)
[2021-12-07 16:32] LABS: POTASSIUM 3.8 MMOL/L (3.6-5.0)
[2021-12-07 16:40] LABS: MAGNESIUM 1.8 MG/DL (1.6-2.4)
[2021-12-07] MEDS ORDERED: ALBUMIN 25% 25 GM/100 ML 50 ML IV NR (17:00)
[2021-12-07] MEDS ORDERED: FUROSEMIDE 40 MG/4 ML INJ (LASIX) IVP NR ×2 (18:00→19:30)
[2021-12-07] MEDS ORDERED: PHENYLEPHRINE INJECTION 10 MG in NS (IVPB) 250 ML IV SCH (19:30)
[2021-12-07] MEDS ORDERED: NS (IVPB) 250 ML ONE (19:31)
[2021-12-07] MEDS ORDERED: PHENYLEPHRINE INJ 10 MG/ML (FOR PYXIS KITS ONLY) ONE (19:31)
[2021-12-07] MEDS ORDERED: NS (IVPB) 0 ML ONE (19:31)
[2021-12-07] MEDS ORDERED: VASOPRESSIN INJECTION 20 UNIT/ML VIAL ONE (19:32)
[2021-12-07] MEDS: VASOPRESSIN INJECTION 20 UNIT in NS (IVPB) 100 ML IV SCH (19:45)
[2021-12-07] MEDS: PHENYLEPHRINE IV SCH ×2 (23:38)
[2021-12-07 23:58] LABS: ABG BASE EXCESS -6.8 MMOL/L (-2.5-2.5); ABG OXYGEN SATURATION 80 % (94-100); ABG PCO2 32 MMHG (35-45); ABG PH 7.36 (7.37-7.43); ABG PO2 45 MMHG (79-93); ABG TCO2 18.5 MMOL/L (21.0-31.0)
[2021-12-07 23:59] LABS: ALLENS TEST POSITIVE; INSPIRED O2 10L; PATIENT TEMP 37.2; VENTILATOR NO
[2021-12-08 00:30] VITALS: BP 90/64
[2021-12-08] MEDS: hydrOXYzine (VISTARIL/ATARAX) 25 MG capsule/tablet PO PRN ×2 (01:35→16:55)
[2021-12-08 02:48] VITALS: BP 89/64
[2021-12-08] MEDS: RT-ALBUTEROL/IPRATROPIUM 3 ML (DUONEB) VIAL INH SCH ×6 (02:48→22:24)
[2021-12-08 04:13] LABS: BASOPHILS # (AUTO) 0.1 10^3/uL (0.0-0.1); BASOPHILS % (AUTO) 0 % (0-10); EOSINOPHILS % (AUTO) 0 % (0-10); HEMATOCRIT 24 % (35-52); HEMOGLOBIN 7.7 g/dL (11.5-16.0); LYMPHOCYTES # (AUTO) 0.9 10^3/uL (1.0-4.0); LYMPHOCYTES % (AUTO) 3 % (12-44); MEAN CORPUSCULAR HEMOGLOBIN 28 pg (25-34); MEAN CORPUSCULAR HGB CONC 33 g/dL (32-36); MEAN CORPUSCULAR VOLUME 85 fL (80-99); MEAN PLATELET VOLUME 10.3 fL (9.0-12.2); MONOCYTES # (AUTO) 0.5 10^3/uL (0.0-1.0); MONOCYTES % (AUTO) 2 % (0-12); NEUTROPHILS # (AUTO) 25.9 10^3/uL (1.8-7.8); NEUTROPHILS % (AUTO) 94 % (42-75); PLATELET COUNT 284 10^3/uL (130-400); WHITE BLOOD COUNT 27.7 10^3/uL (4.3-11.0)
[2021-12-08 04:23] LABS: ALBUMIN 2.3 GM/DL (3.2-4.5); POTASSIUM 3.8 MMOL/L (3.6-5.0)
[2021-12-08 04:24] LABS: CALCIUM 7.5 MG/DL (8.5-10.1)
[2021-12-08 04:26] LABS: TOTAL PROTEIN 3.8 GM/DL (6.4-8.2)
[2021-12-08 04:27] LABS: BILIRUBIN,TOTAL 0.8 MG/DL (0.1-1.0)
[2021-12-08 04:29] LABS: PHOSPHORUS 2.4 MG/DL (2.3-4.7)
[2021-12-08 04:30] LABS: CREATININE SERUM 0.68 MG/DL (0.60-1.30)
[2021-12-08 04:33] LABS: MAGNESIUM 1.8 MG/DL (1.6-2.4)
[2021-12-08 05:20] LABS: ABG BASE EXCESS -6.9 MMOL/L (-2.5-2.5); ABG OXYGEN SATURATION 44 % (94-100); ABG PCO2 35 MMHG (35-45); ABG TCO2 19.3 MMOL/L (21.0-31.0)
[2021-12-08 05:21] LABS: ALLENS TEST POSITIVE; INSPIRED O2 50% BIPAP; PATIENT TEMP 37.1; VENTILATOR NO
[2021-12-08 05:22] LABS: ABG PH 7.33 (7.37-7.43); ABG PO2 27 MMHG (79-93)
[2021-12-08] MEDS: VASOPRESSIN INJECTION 20 UNIT in NS (IVPB) 100 ML IV SCH ×2 (06:23→17:09)
[2021-12-08] MEDS: PHENYLEPHRINE IV SCH ×8 (06:23→22:43)
[2021-12-08] MEDS: POTASSIUM CL 10MEQ/50ML IVPB 50 ML IV SCH (06:26)
[2021-12-08] MEDS: MAGNESIUM 1 GM/100 ML IVPB 100 ML IV SCH (06:26)
[2021-12-08] MEDS: KCL 20 MEQ TAB (K-DUR) PO SCH (06:26)
--- NOTE | 2021-12-08 08:22 | Progress Note - Surgery ---
LURDES ROONEY 12/08/21821: Subjective Date Seen by a Provider: Dec 08, 2021 Time Seen by a Provider: 07:40 Subjective/Events-last exam Patient lying in bed when entering the room. States she feels weak today, but slightly better than yesterday. She is currently on 10L high flow NC. She has be en going on an off of BiPAP. Patient states that she is still struggling to catch her breath. Patient is currently on norepinephrine, phenylephrine, and vasopressin to control BP. She has been 90's systolic this AM. Patient states she had some stool in her colostomy bag this morning. When I looked her bag was empty and had trace blood in it. Stoma looked patent and pink. Patient had elevated troponins yesterday afternoon, cardiology is following. Review of Systems General: No Chills, No Night Sweats HEENT: Head Aches (on and off, currently none); No Visual Changes Pulmonary: Dyspnea, Cough Cardiovascular: No: Chest Pain, Palpitations Gastrointestinal: Abdominal Pain (RLQ and LLQ); No: Nausea, Vomiting Objective Exam Vital Signs Date Time Temp Pulse Resp B/P (MAP) Pulse Ox O2 Delivery O2 Flow Rate FiO2 12/08/21 07:57 36.1 12/08/21 06:56 94 High Flow N/C 10.00 12/08/21 06:31 94 High Flow N/C 10.00 12/08/21 06:23 91/56 12/08/21 06:23 91/56 12/08/21 06:00 86 22 91/56 NIV Bilevel 50.00 12/08/21 05:00 118 36 87/67 NIV Bilevel 50.00 12/08/21 04:00 37.1 12/08/21 04:00 High Flow N/C 10.00 12/08/21 04:00 122 22 79/60 NIV Bilevel 50.00 12/08/21 03:00 128 21 99/60 74 NIV Bilevel 50.00 12/08/21 02:48 126 20 50.00 12/08/21 02:38 NIV Bilevel 50.00 12/08/21 02:00 141 31 89/64 80 NIV Bilevel 45.00 12/08/21 01:15 NIV Bilevel 45.00 12/08/21 01:00 125 12/08/21 01:00 125 25 90/65 89 NIV Bilevel 45.00 12/08/21 00:30 130 24 45.00 12/08/21 00:30 NIV Bilevel 45.00 12/08/21 00:00 High Flow N/C 10.00 12/08/21 00:00 137 27 77/51 76 High Flow N/C 10.00 12/07/21 23:56 37.2 12/07/21 23:38 142 30 76/58 12/07/21 23:00 134 26 87/63 71 High Flow N/C 10.00 12/07/21 22:28 91 High Flow N/C 10.00 12/07/21 22:00 131 21 83/61 90 High Flow N/C 10.00 12/07/21 21:00 135 24 103/69 86 High Flow N/C 10.00 12/07/21 20:24 35.9 12/07/21 20:00 91 High Flow N/C 10.00 12/07/21 20:00 137 24 96/72 89 High Flow N/C 10.00 12/07/21 19:56 High Flow N/C 10.00 12/07/21 19:46 138 82/60 12/07/21 19:45 140 82/60 12/07/21 19:00 142 26 83/55 93 Nasal Cannula 8.00 12/07/21 19:00 142 12/07/21 18:36 93 High Flow N/C 8.00 12/07/21 18:00 140 23 81/52 91 Nasal Cannula 8.00 12/07/21 17:00 144 27 71/53 93 Nasal Cannula 8.00 12/07/21 16:00 146 25 85/38 92 Nasal Cannula 8.00 12/07/21 16:00 94 High Flow N/C 8.00 12/07/21 15:00 97 24 91/57 92 Nasal Cannula 8.00 12/07/21 14:52 92 High Flow N/C 8.00 12/07/21 14:00 93 26 96/61 92 Nasal Cannula 8.00 12/07/21 13:23 99/79 12/07/21 13:00 92 25 99/71 96 Nasal Cannula 10.00 12/07/21 12:54 91 12/07/21 12:00 93 26 100/63 96 Nasal Cannula 10.00 12/07/21 12:00 93 High Flow N/C 10.00 12/07/21 11:46 36.0 94 24 93/62 95 Nasal Cannula 10.00 12/07/21 11:00 96 18 98/64 96 Nasal Cannula 10.00 12/07/21 10:45 97 High Flow N/C 10.00 12/07/21 10:00 101 27 99/59 90 Nasal Cannula 10.00 12/07/21 09:00 106 22 94/69 93 Nasal Cannula 10.00 I & O 12/08/21 07:00 Intake Total 1051 ml Output Total 1425 ml Balance -374 ml Capillary Refill : Less Than 3 Seconds General Appearance: WD/WN, Chronically ill, Mild Distress, Thin Neck: Supple Respiratory: No Accessory Muscle Use, Crackles (Lower lobes bilaterally ), Decreased Breath Sounds Cardiovascular: Regular Rate, Rhythm, Normal Peripheral Pulses Gastrointestinal: soft, tenderness, other (Colostomy pink and viable, some blood in her ostomy bag. ) Extremity: Non Tender, No Calf Tenderness, Pedal Edema (non-pitting; trace), Swelling (bilateral upper extremities ), Other (SCD's in place) Neurologic/Psychiatric: Alert, Oriented x3, Normal Mood/Affect Skin: Normal Color, Warm/Dry Results Lab Laboratory Tests 12/07/21 10:01: Body Fluid Source PLEURAL, Body Fluid Color YELLOW, Body Fluid Appearance SLT CLDY, Body Fluid WBC 407, Body Fluid RBC 13, Body Fluid Polynuclear WBCs 78, Body Fluid Mononuclear WBCs 0, Body Fluid Lymphocytes 0, Body Fluid Eosinophils 0, Body Fluid Other Cells 22, Body Fluid Glucose 127, Body Fluid Total Protein < 0.8 12/07/21 16:08: Potassium Level 3.8, Magnesium Level 1.8, Troponin I 0.095H 12/07/21 23:50: Blood Gas Puncture Site LEFT RADIAL, Blood Gas Patient Temperature 37.2, Arterial Blood pH 7.36L, Arterial Blood Partial Pressure CO2 32L, Arterial Blood Partial Pressure O2 45L, Arterial Blood HCO3 18L, Arterial Blood Total CO2 18.5L , Arterial Blood Oxygen Saturation 80L, Arterial Blood Base Excess -6.8L, Brent Test POSITIVE, Blood Gas Ventilator Setting NO, Blood Gas Inspired Oxygen 10L 12/08/21 04:08: Potassium Level 3.8, Magnesium Level 1.8, White Blood Count 27.7H, Red Blood Count 2.77L, Hemoglobin 7.7L, Hematocrit 24L, Mean Corpuscular Volume 85, Mean Corpuscular Hemoglobin 28, Mean Corpuscular Hemoglobin Concent 33, Red Cell Distribution Width 18.3H, Platelet Count 284, Mean Platelet Volume 10.3, Immature Granulocyte % (Auto) 1, Neutrophils (%) (Auto) 94H, Lymphocytes (%) (Auto) 3L, Monocytes (%) (Auto) 2, Eosinophils (%) (Auto) 0, Basophils (%) (Auto) 0, Neutrophils # (Auto) 25.9H, Lymphocytes # (Auto) 0.9L, Monocytes # (Auto) 0.5, Eosinophils # (Auto) 0.0, Basophils # (Auto) 0.1, Immature Granulocyte # (Auto) 0.4H, Sodium Level 136, Chloride Level 107, Carbon Dioxide Level 14L, Anion Gap 15H, Blood Urea Nitrogen 5L, Creatinine 0.68, Estimat Glomerular Filtration Rate 98, BUN/Creatinine Ratio 7, Glucose Level 140H, Calcium Level 7.5L, Corrected Calcium 8.9, Phosphorus Level 2.4, Total Bilirubin 0.8, Aspartate Amino Transf (AST/SGOT) 34, Alanine Aminotransferase (ALT/SGPT) 13, Alkaline Phosphatase 104, Total Protein 3.8L, Albumin 2.3L 12/08/21 05:01: Blood Gas Puncture Site LEFT RADIAL, Blood Gas Patient Temperature 37.1, Arterial Blood pH 7.33*L, Arterial Blood Partial Pressure CO2 35, Arterial Blood Partial Pressure O2 27*L, Arterial Blood HCO3 18L, Arterial Blood Total CO2 19.3L, Arterial Blood Oxygen Saturation 44L, Arterial Blood Base Excess -6.9L, Brent Test POSITIVE, Blood Gas Ventilator Setting NO, Blood Gas Inspired Oxygen 50% BIPAP Microbiology 12/03/21 C. difficile GDH Antigen & Toxins - Final, Complete 12/03/21 MRSA Screen - Final, Complete 12/01/21 Blood Culture - Final, Complete No growth 12/01/21 Urine Culture - Final, Complete Citrobacter freundii complex Enterococcus faecalis Assessment/Plan Assessment/Plan Assessment/Plan s/p Laparoscopic Miley's procedure with end colostomy for diversion - post-op day 3 Septic Shock - Hypotensive requiring norepinephrine, phenylephrine, vasopressin - Leukocytosis, 27.7 today, 27.5 yesterday - Tachycardia, transient, no tachycardic when I visited this AM - Acute Respiratory failure, requiring High flow NC/BiPAP intermittently - UTI Rectal mass with ulceration/perforation - r/o abscess - awaiting pathology Rectal bleed - d/t above Bilateral pleural effusions - Large, confirmed on CT - Likely transudative d/t hypoalbuminemia - S/P Left thoracentesis with 700ml collected Anemia - 7.7 this morning - Continue to monitor Hyponatremia - 136 this morning, continue to monitor UTI - On Levofloxacin day 6 of 6 - C. freundii complex Hypokalemia, resolved Patient's stoma appears to be healing appropriately, continue to monitor. Elvira dsouza had an elevated troponin yesterday, 0.095, Cardiology is currently consulted. Patient is still requiring pressors to maintain blood pressure, managed by eICU team, continue to monitor. Hemoglobin is 7.7, from 8 yesterday, continue to monitor. Awaiting pathology results from rectal mass/ulceration. Patient currently on 10L high flow NC, had thoracentesis yesterday, continue to monitor. s/p Laparoscopic Miley's procedure with end colostomy for diversion - post-op day 3 Septic Shock - Hypotensive requiring norepinephrine, phenylephrine, vasopressin - Leukocytosis, 27.7 today, 27.5 yesterday - Tachycardia, transient, no tachycardic when I visited this AM - Acute Respiratory failure, requiring High flow NC/BiPAP intermittently - UTI Rectal mass with ulceration/perforation - r/o abscess - awaiting pathology Rectal bleed - d/t above Bilateral pleural effusions - Large, confirmed on CT - Likely transudative d/t hypoalbuminemia - S/P Left thoracentesis with 700ml collected Anemia - 7.7 this morning - Continue to monitor Hyponatremia - 136 this morning, continue to monitor UTI - On Levofloxacin day 6 of 6 - C. freundii complex Hypokalemia, resolved Patient's stoma appears to be healing appropriately, continue to monitor. Patient had an elevated troponin yesterday, 0.095, Cardiology is currently consulted. Patient is still requiring pressors to maintain blood pressure, managed by eICU team, continue to monitor. Hemoglobin is 7.7, from 8 yesterday, continue to monitor. Awaiting pathology results from rectal mass/ulceration. Patient currently on 10L high flow NC, had thoracentesis yesterday, continue to monitor. Clinical Quality Measures DVT/VTE Risk/Contraindication: Contraindications-Pharm: Other *list below* Other: gi bleed ESTELLA DONNELLY DO 12/08/21 1435: Subjective Time Seen by a Provider: 13:25 Subjective/Events-last exam Pt seen and examined, on Bipap but appears comfortable. States she has some pain but it is not that bad. Review of Systems General: No Chills; Fatigue, Malaise HEENT: Head Aches (on and off, currently none); No Visual Changes Pulmonary: Dyspnea, Cough Cardiovascular: No: Chest Pain, Palpitations Gastrointestinal: Abdominal Pain (RLQ and LLQ); No: Nausea, Vomiting Objective Exam General Appearance: Chronically ill, Mild Distress, Thin Respiratory: No Accessory Muscle Use, Crackles (Lower lobes bilaterally ), Decreased Breath Sounds Cardiovascular: Regular Rate, Rhythm, Normal Peripheral Pulses Gastrointestinal: soft, tenderness, other (Colostomy pink and viable, some blood in her ostomy bag. ) Extremity: Pedal Edema (non-pitting; trace), Swelling (bilateral upper extr emities ), Other (SCD's in place) Assessment/Plan Assessment/Plan Assessment/Plan s/p Laparoscopic Miley's procedure with end colostomy for diversion - post-op day 3 Septic Shock - Criteria but no source identified - Hypotensive requiring norepinephrine, phenylephrine, vasopressin - Leukocytosis, 27.7 today, 27.5 yesterday - Tachycardia, transient, no tachycardic when I visited this AM - Acute Respiratory failure, requiring High flow NC/BiPAP intermittently - UTI Rectal mass with ulceration/perforation - r/o abscess - awaiting pathology Rectal bleed - d/t above Bilateral pleural effusions - Large, confirmed on CT - Likely transudative d/t hypoalbuminemia - S/P Left thoracentesis with 700ml collected Anemia - 7.7 this morning - Continue to monitor Hyponatremia - 136 this morning, continue to monitor UTI - On Levofloxacin day 6 of 6 - C. freundii complex Hypokalemia, resolved Patient's stoma appears to be healing appropriately, continue to monitor. Patient had an elevated troponin yesterday, 0.095, Cardiology is currently consulted. Patient is still requiring pressors to maintain blood pressure, managed by eICU team, continue to monitor. Hemoglobin is 7.7, from 8 yesterday, continue to monitor. Awaiting pathology results from rectal mass/ulceration. Patient currently on 10L high flow NC, had thoracentesis yesterday, continue to monitor. 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 freundii complex Hypokalemia, resolved Patient's stoma appears to be healing appropriately, continue to monitor. Patient had an elevated troponin yesterday, 0.095, Cardiology is currently consulted. Patient is still requiring pressors to maintain blood pressure, managed by eICU team, continue to monitor. Hemoglobin is 7.7, from 8 yesterday, continue to monitor. Patient currently on 10L high flow NC, had thoracentesis yesterday, continue to monitor. Supervisory-Addendum Brief Verification & Attestation Participated in pt care: history, MDM, physical Personally performed: exam, history, MDM, supervision of care Care discussed with: Medical Student Procedures: n/a Verification and Attestation of Medical Student E/M Service A medical student performed and documented this service. I then reviewed and verified all information documented by the medical student and made modifications to such information, when appropriate. I personally performed a physical exam, medical decision making and then discussed any differences between the notes and made revisions as necessary to create one note. Estella Donnelly , 12/08/21 , 14:35 TORIBIOHAILEELURDES Dec 08, 2021 08:22 ESTELLA DONNELLY DO Dec 08, 2021 14:35
--- NOTE | 2021-12-08 08:39 | Cardiology Progress Note ---
Subjective Date Seen by Provider: Dec 08, 2021 Time Seen by Provider: 08:37 Subjective/Events-last exam Patient was seen at bedside, laying down comfortably Still having shortness of breath. Had an episode of tachycardia last night Review of Systems General: No Chills, No Night Sweats; Fatigue, Malaise; No Appetite, No Other HEENT: No Head Aches, No Visual Changes, No Eye Pain, No Ear Pain, No Dysphasia, No Sinus Congestion, No Post Nasal Drip, No Sore Throat, No Other Pulmonary: Dyspnea, Cough; No Pleuritic Chest Pain, No Other Cardiovascular: No: Chest Pain, Palpitations, Orthopnea, Paroxysmal Noc. Dyspnea, Edema, Lt Headedness, Other Objective-Cardiology Exam Last Set of Vital Signs Vital Signs 12/06/21 12/08/21 12/08/21 12/08/21 16:54 06:00 06:56 07:57 Temp 36.1 Pulse 86 Resp 22 Pulse Ox 94 O2 Delivery High Flow N/C O2 Flow Rate 10.00 FiO2 3 I&O Intake and Output 12/08/21 00:00 Intake Total 900 ml Output Total 1425 ml Balance -525 ml Intake Oral 650 ml IV Total 250 ml Output Urine Total 1425 ml General: Alert, Oriented X3, Cooperative HEENT: Atraumatic, PERRLA Neck: Supple, No JVD, No Thyromegaly Lungs: Normal Air Movement, Other (Bilateral rhonchi) Heart: Regular Rate, Normal S1, Normal S2, No Murmurs Abdomen: Normal Bowel Sounds, Soft, No Tenderness, No Hepatosplenomegaly, No Masses Extremities: No Clubbing, No Cyanosis, No Edema, Normal Pulses, No Tenderness/Swelling Skin: No Rashes, No Breakdown, No Significant Lesion Neuro: Normal Speech, Normal Tone, Sensation Intact Psych/Mental Status: Mood NL Results Lab Laboratory Tests 12/07/21 16:08 12/08/21 04:08 A/P-Cardiology Admission Diagnosis Sepsis Septic shock Tachycardia UTI Assessment/Plan Sepsis with septic shock, rectal abscess, had I&D, awaiting pathology Status post endoscopic Miley's with end colostomy Recovering slowly Acute on chronic respiratory failure, shortness of breath. Requiring high flow oxygen Patient had COVID-19 infection about 5 weeks ago, her Covid test reported as detected. Discussed the management plan with Dr. Adams and patient does not require isolation CT scan showed scarring and fibrosis secondary to Covid and extensive pleural effusion Status post thoracentesis done by Dr. Saunders. Recurrent paroxysmal supraventricular tachycardia, had multiple episodes. Had few episodes of sinus tachycardia secondary to respiratory failure and hypoxemia. Currently heart rate is better controlled. Hypotension, secondary to sepsis. She is still hypotensive and receiving IV fluid and pressors Perirectal abscess, status post diverting end colostomy on December 05, 2021 UTI, receiving antibiotics. History of anxiety, depression, managed by primary care physician Failure to thrive. SILVIA OH MD Dec 08, 2021 08:39
[2021-12-08] MEDS: SERTRALINE 100 MG (ZOLOFT) TAB PO SCH ×2 (08:48→10:00)
[2021-12-08] MEDS: CYANOCOBALAMIN 1,000 MCG (VITAMIN B-12) TABLET PO SCH ×2 (08:48→10:00)
[2021-12-08] MEDS: PANTOPRAZOLE 40 MG (PROTONIX) TAB PO SCH ×2 (08:48→10:00)
[2021-12-08] MEDS: SENNOSIDES 8.6 MG (SENOKOT) TAB PO SCH ×3 (08:48→19:45)
[2021-12-08] MEDS: DOCUSATE SODIUM 100 MG (COLACE) CAP PO SCH ×3 (08:48→19:45)
--- NOTE | 2021-12-08 09:21 | Tele-ICU Progress Note ---
Subjective Time Seen by a Provider: 08:00 Subjective/Events-last exam This virtual visit was conducted using real time audio/video. Thank you for asking us to see this patient for respiratory insufficiency due to B pna, COPD. Also Covid positive on 12/02/2021. Pt had Covid infection September 2021. Pt is s/p ex lap/colostomy for rectal mass, path pending. PE: Cachectic, chronically ill appearing. VSS. O2 sat 94% on 10 LPM. HEENT: No obvious masses, adenopathy or JVD. Chest: clear to auscultation. CV: RRR S1 S2 No murmur or added sounds. Abd: Non-tender. Bowel sounds Y. : Unremarkable. 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 No obvious focal findings. Extremities: 2+ edema. Capillary refill < 3 seconds. Skin: unremarkable. Results: Elevated WCC 27.7. Decreased Hb 7.7, Alb 2.3. B.33/35/27 on 50% BiPAP.. CXR: B opacities. Available chart/ vitals / labs / images reviewed. Video assessment done using teleICU camera, rest of exam as per RN. A/P: Respiratory insufficiency: Continue present management with O2, Duonebs Monitor for increasing oxygenation needs and/or need for intubation. Critical Care: critically ill patient. Cont.Pressors, PPI, abx, trazodone, Prozac. Discussed with RN RT Lori. Asked RN to reach out to eICU if any questions or concerns later. Time spent with patient/coordination of care with other health professionals (mins): 30 Sepsis Event Evaluation Height, Weight, BMI Height: '" Weight: lbs. oz. kg; 15.39 BMI Method: Exam Exam Patient acknowledged, consented, and participated in this virtual visit which was conducted using real time audio/video Vital Signs Date Time Temp Pulse Resp B/P (MAP) Pulse Ox O2 Delivery O2 Flow Rate FiO2 12/08/21 09:00 89 28 90/65 82 High Flow N/C 10.00 12/08/21 08:00 88 21 102/64 High Flow N/C 10.00 12/08/21 07:57 36.1 12/08/21 07:00 84 22 82/44 81 High Flow N/C 10.00 12/08/21 07:00 85 12/08/21 06:56 94 High Flow N/C 10.00 12/08/21 06:31 94 High Flow N/C 10.00 12/08/21 06:23 91/56 12/08/21 06:23 91/56 12/08/21 06:00 86 22 91/56 NIV Bilevel 50.00 12/08/21 05:00 118 36 87/67 NIV Bilevel 50.00 12/08/21 04:00 37.1 12/08/21 04:00 High Flow N/C 10.00 12/08/21 04:00 122 22 79/60 NIV Bilevel 50.00 12/08/21 03:00 128 21 99/60 74 NIV Bilevel 50.00 12/08/21 02:48 126 20 50.00 12/08/21 02:38 NIV Bilevel 50.00 12/08/21 02:00 141 31 89/64 80 NIV Bilevel 45.00 12/08/21 01:15 NIV Bilevel 45.00 12/08/21 01:00 125 12/08/21 01:00 125 25 90/65 89 NIV Bilevel 45.00 12/08/21 00:30 130 24 45.00 12/08/21 00:30 NIV Bilevel 45.00 12/08/21 00:00 High Flow N/C 10.00 12/08/21 00:00 137 27 77/51 76 High Flow N/C 10.00 12/07/21 23:56 37.2 12/07/21 23:38 142 30 76/58 12/07/21 23:00 134 26 87/63 71 High Flow N/C 10.00 12/07/21 22:28 91 High Flow N/C 10.00 12/07/21 22:00 131 21 83/61 90 High Flow N/C 10.00 12/07/21 21:00 135 24 103/69 86 High Flow N/C 10.00 12/07/21 20:24 35.9 12/07/21 20:00 91 High Flow N/C 10.00 12/07/21 20:00 137 24 96/72 89 High Flow N/C 10.00 12/07/21 19:56 High Flow N/C 10.00 12/07/21 19:46 138 82/60 12/07/21 19:45 140 82/60 12/07/21 19:00 142 26 83/55 93 Nasal Cannula 8.00 12/07/21 19:00 142 12/07/21 18:36 93 High Flow N/C 8.00 12/07/21 18:00 140 23 81/52 91 Nasal Cannula 8.00 12/07/21 17:00 144 27 71/53 93 Nasal Cannula 8.00 12/07/21 16:00 146 25 85/38 92 Nasal Cannula 8.00 12/07/21 16:00 94 High Flow N/C 8.00 12/07/21 15:00 97 24 91/57 92 Nasal Cannula 8.00 12/07/21 14:52 92 High Flow N/C 8.00 12/07/21 14:00 93 26 96/61 92 Nasal Cannula 8.00 12/07/21 13:23 99/79 12/07/21 13:00 92 25 99/71 96 Nasal Cannula 10.00 12/07/21 12:54 91 12/07/21 12:00 93 26 100/63 96 Nasal Cannula 10.00 12/07/21 12:00 93 High Flow N/C 10.00 12/07/21 11:46 36.0 94 24 93/62 95 Nasal Cannula 10.00 12/07/21 11:00 96 18 98/64 96 Nasal Cannula 10.00 12/07/21 10:45 97 High Flow N/C 10.00 12/07/21 10:00 101 27 99/59 90 Nasal Cannula 10.00 I & O 12/08/21 07:00 Intake Total 1051 ml Output Total 1425 ml Balance -374 ml Height & Weight Height: '" Weight: lbs. oz. kg; 15.39 BMI Method: General Appearance: WD/WN, Chronically ill, Mild Distress, Thin Neck: Supple Respiratory: No Accessory Muscle Use, Crackles (Lower lobes bilaterally ), Decreased Breath Sounds Cardiovascular: Regular Rate, Rhythm, Normal Peripheral Pulses Capillary Refill: Less Than 3 Seconds Gastrointestinal: soft, tenderness, other (Colostomy pink and viable, some blood in her ostomy bag. ) Extremity: Non Tender, No Calf Tenderness, Pedal Edema (non-pitting; trace), Swelling (bilateral upper extremities ), Other (SCD's in place) Neurologic/Psychiatric: Alert, Oriented x3, Normal Mood/Affect Skin: Normal Color, Warm/Dry Results Lab Laboratory Tests 12/07/21 04:35 12/07/21 16:08 12/08/21 04:08 Assessment/Plan Assessment/Plan See free text. Critical Care: Critically Ill Patient RAIMUNDO HANKINS MD Dec 08, 2021 09:21
--- NOTE | 2021-12-08 09:32 | Progress Note ---
Subjective Subjective/Events-last exam Reports she is feeling "not very good". She feels short of breath. Objective Exam Last Set of Vital Signs Vital Signs Date Time Temp Pulse Resp B/P (MAP) Pulse Ox O2 Delivery O2 Flow Rate FiO2 12/08/21 09:00 89 28 90/65 82 High Flow N/C 10.00 12/08/21 07:57 36.1 12/06/21 16:54 3 Capillary Refill : Less Than 3 Seconds I&O Intake and Output 12/08/21 00:00 Intake Total 900 ml Output Total 1425 ml Balance -525 ml Intake Oral 650 ml IV Total 250 ml Output Urine Total 1425 ml General: Alert Lungs: Other (rales) Heart: Regular Rate Abdomen: Other (hypoactive bowel sounds, ostomy in place with no stool in bag, diffuse ttp) Extremities: Other (2+ pitting edema in legs) Psych/Mental Status: Mood NL, Other (oriented to self and location only) Results/Procedures Lab Laboratory Tests 12/07/21 10:01: Body Fluid Source PLEURAL, Body Fluid Color YELLOW, Body Fluid Appearance SLT CLDY, Body Fluid WBC 407, Body Fluid RBC 13, Body Fluid Polynuclear WBCs 78, Body Fluid Mononuclear WBCs 0, Body Fluid Lymphocytes 0, Body Fluid Eosinophils 0, Body Fluid Other Cells 22, Body Fluid Glucose 127, Body Fluid Total Protein < 0.8 12/07/21 16:08: Potassium Level 3.8, Magnesium Level 1.8, Troponin I 0.095H 12/07/21 23:50: Blood Gas Puncture Site LEFT RADIAL, Blood Gas Patient Temperature 37.2, Arterial Blood pH 7.36L, Arterial Blood Partial Pressure CO2 32L, Arterial Blood Partial Pressure O2 45L, Arterial Blood HCO3 18L, Arterial Blood Total CO2 18.5L , Arterial Blood Oxygen Saturation 80L, Arterial Blood Base Excess -6.8L, Brent Test POSITIVE, Blood Gas Ventilator Setting NO, Blood Gas Inspired Oxygen 10L 12/08/21 04:08: Potassium Level 3.8, Magnesium Level 1.8, White Blood Count 27.7H, Red Blood Count 2.77L, Hemoglobin 7.7L, Hematocrit 24L, Mean Corpuscular Volume 85, Mean Corpuscular Hemoglobin 28, Mean Corpuscular Hemoglobin Concent 33, Red Cell Distribution Width 18.3H, Platelet Count 284, Mean Platelet Volume 10.3, Immature Granulocyte % (Auto) 1, Neutrophils (%) (Auto) 94H, Lymphocytes (%) (Auto) 3L, Monocytes (%) (Auto) 2, Eosinophils (%) (Auto) 0, Basophils (%) (Auto) 0, Neutrophils # (Auto) 25.9H, Lymphocytes # (Auto) 0.9L, Monocytes # (A uto) 0.5, Eosinophils # (Auto) 0.0, Basophils # (Auto) 0.1, Immature Granulocyte # (Auto) 0.4H, Sodium Level 136, Chloride Level 107, Carbon Dioxide Level 14L, Anion Gap 15H, Blood Urea Nitrogen 5L, Creatinine 0.68, Estimat Glomerular Filtration Rate 98, BUN/Creatinine Ratio 7, Glucose Level 140H, Calcium Level 7.5L, Corrected Calcium 8.9, Phosphorus Level 2.4, Total Bilirubin 0.8, A spartate Amino Transf (AST/SGOT) 34, Alanine Aminotransferase (ALT/SGPT) 13, Alkaline Phosphatase 104, Total Protein 3.8L, Albumin 2.3L 12/08/21 05:01: Blood Gas Puncture Site LEFT RADIAL, Blood Gas Patient Temperature 37.1, Arterial Blood pH 7.33*L, Arterial Blood Partial Pressure CO2 35, Arterial Blood Partial Pressure O2 27*L, Arterial Blood HCO3 18L, Arterial Blood Total CO2 19.3L, Arterial Blood Oxygen Saturation 44L, Arterial Blood Base Excess -6.9L, Brent Test POSITIVE, Blood Gas Ventilator Setting NO, Blood Gas Inspired Oxygen 50% BIPAP Microbiology 12/03/21 C. difficile GDH Antigen & Toxins - Final, Complete 12/03/21 MRSA Screen - Final, Complete 12/01/21 Blood Culture - Final, Complete No growth 12/01/21 Urine Culture - Final, Complete Citrobacter freundii complex Enterococcus faecalis Radiology Date of Exam:12/01/21 CT ABDOMEN/PELVIS W PROCEDURE: CT abdomen and pelvis with contrast. TECHNIQUE: Multiple contiguous axial images were obtained through the abdomen and pelvis after administration of intravenous contrast. Auto Exposure Controls were utilized during the CT exam to meet ALARA standards for radiation dose reduction. All CT scans use one or more of the following dose optimizing techniques: automated exposure control, MA and/or KvP adjustment based on patient size and exam type or iterative reconstruction. INDICATION: Abscess, pain. COMPARISON: October 13, 2021. FINDINGS: Calcified granuloma within the right middle lobe. The lungs are otherwise clear. Large hiatal hernia. Hypodensity within the liver adjacent to the falciform ligament and gallbladder fossa is again identified. The liver is otherwise unremarkable. The spleen is unremarkable. The adrenal glands are unremarkable. The pancreas is unremarkable. The gallbladder is at the upper limits of normal in size without adjacent inflammatory stranding. Advanced vascular calcifications within the abdominal aorta and its branch vessels without aneurysmal dilatation of the abdominal aorta. Retroaortic left renal vein. Rodriguez catheter is present within the urinary bladder, though significant amount of gas and fluid remains within the urinary bladder. 2.8 x 2.0 cm irregular gas and fluid collection is identified within the perineum just to the left of midline with associated hyperenhancement. This is seen extending along the left aspect of the rectum. This appears relatively similar to the prior examination. Diffuse mural thickening of loops of the large and small bowel is identified, which appears to be a change from the prior examination. No evidence of bowel obstruction. No abnormal adnexal mass lesion. No new adenopathy. No significant free fluid or free air. New postsurgical changes are identified associated with the proximal right femur. No new acute osseous abnormality. IMPRESSION: Persistent perineal/left perirectal gas and fluid collection remains concerning for a perirectal/perineal abscess. Overall appearance is relatively similar to the prior examination. Neoplasm at this location not excluded. New mural thickening involving the large and small bowel, felt to relate to underlying enterocolitis. There is however no evidence of bowel obstruction. Gas and fluid within the urinary bladder though a Rodriguez catheter is present within the urinary bladder. Recommend clinical correlation for functionality of this Rodriguez catheter. Large hiatal hernia. Fatty infiltration of the liver. Additional findings as above, including interval postsurgical changes involving the proximal right femur. Dictated by: Dictated on workstation # [id number] Dict: 12/01/21 1728 Trans: 12/01/211758 [id number] Interpreted by: YARIEL CATALAN MD Electronically signed by: YARIEL CATALAN MD 12/01/21 7174 Assessment/Plan Assessment/Plan (1) Anemia Status: Chronic Assessment & Plan: Suspect combination of iron deficiency and chronic disease, had low iron, but do not see remainder of iron studies, will check ferritin, TIBC. B12 was low normal at 192 in Sep, is on B12 at home, but anemia is normocytic. Known rectal bleeding, s/p upper and lower endoscopy, appreciate Surgery recommendations. (2) Hypokalemia Status: Acute Assessment & Plan: Replace and monitor. (3) Urinary tract infection Status: Acute Assessment & Plan: Citrobacter freundii and enterococcus faecalis on culture, both sensitive to levofloxacin, continuing levofloxacin course beyond 5 days due to persistent hypotension and worsening leukocytosis. Qualifiers: Qualified Codes: N39.0 - Urinary tract infection, site not specified (4) Failure to thrive in adult Status: Chronic (5) Acute respiratory failure Status: Acute Assessment & Plan: CTA chest 12/06/21 with bilateral pleural effusions and changes suspected to be related to history of COVID19 infection in September, s/p thoracentesis. Requiring up to 10 lpm high flow nasal cannula this am, appreciate [facility] ICU recommendations. Nursing reports unable to obtain adequate SpO2 measurements in spite of trials of forehead, ear, multiple fingers. ABG this morning suspected to be VBG. Consider arterial line. Qualifiers: Qualified Codes: J96.01 - Acute respiratory failure with hypoxia (6) Pleural effusion Status: Acute Assessment & Plan: s/p left thoracentesis on 12/07. Ratio of pleural fluid protein to serum protein 0.8/3.7 = 0.22, suggesting transudate; LDH levels not done, uncertain etiology consider hypoalbuminemia, COVID19 history, malignancy. Heart failure less like given echo on 12/05 with EF 60-65%, although did have elevated pulmonary artery pressure. Nucleated cell count less than 10,000/micoL making infection less likely cause. (7) Hypotension Status: Acute Assessment & Plan: Uncertain etiology- had bleeding on admit, but is not have active brisk bleeding that would explain severity of her hypotension, did not meet sepsis criteria on admit and LA normalized early on. am Cortisol 9.4 mcg/dL, not clearly consistent with adrenal insufficiency. Had tachycardia with norepinephrine, now on phenylephrine and vaspressin. (8) Mass of perirectal soft tissue Status: Acute Assessment & Plan: s/p diverting ostomy per Dr. Donnelly. Pathology pending, concern for cancer. (9) DVT prophylaxis Status: Acute Assessment & Plan: No pharmacologic due to GI bleeding and severe anemia. (10) Goals of care, counseling/discussion Status: Acute Assessment & Plan: Discussed current serious situation with patient chantell forrest and she states she does want to have every possible measure done if she has cardiac event or worsening respiratory failure. Clinical Quality Measures DVT/VTE Risk/Contraindication: Contraindications-Pharm: Other *list below* Other: gi bleed JOSE SANDERS MD Dec 08, 2021 09:32
[2021-12-08] MEDS ORDERED: NS IV 1000 ML 1,000 ML IV SCH ×2 (10:00→15:30)
[2021-12-08 14:27] VITALS: BP 105/73
[2021-12-08 18:44] VITALS: BP 107/71
[2021-12-08] MEDS: morphine INJ 4 MG/ML 1 ML (VIAL/SYRINGE) IV PRN (19:56)
[2021-12-08] MEDS: MELATONIN 3 MG TABLET PO PRN (22:13)
[2021-12-08] MEDS: traZODone 150 MG (DESYREL) TABLET PO PRN (22:13)
[2021-12-08 22:24] VITALS: BP 108/57
[2021-12-08] MEDS ORDERED: FUROSEMIDE 40 MG/4 ML INJ (LASIX) IVP ONE (22:45)
[2021-12-08] MEDS: ALBUMIN 5% 12.5 GM/250 ML 250 ML IV SCH (23:27)
[2021-12-09] VITALS (8 sets, daily range): BP systolic 85–143; BP diastolic 61–89
[2021-12-09] MEDS: ALBUMIN 5% 12.5 GM/250 ML 250 ML IV SCH (00:45)
[2021-12-09] MEDS ORDERED: FUROSEMIDE 40 MG/4 ML INJ (LASIX) ONE (01:56)
[2021-12-09] MEDS: RT-ALBUTEROL/IPRATROPIUM 3 ML (DUONEB) VIAL INH SCH ×6 (02:45→22:47)
[2021-12-09] MEDS: VASOPRESSIN INJECTION 20 UNIT in NS (IVPB) 100 ML IV SCH ×2 (04:08→16:43)
[2021-12-09] MEDS: PHENYLEPHRINE IV SCH ×8 (04:08→23:33)
[2021-12-09 04:50] LABS: BASOPHILS % (AUTO) 0 % (0-10); EOSINOPHILS % (AUTO) 0 % (0-10); HEMATOCRIT 22 % (35-52); LYMPHOCYTES # (AUTO) 1.4 10^3/uL (1.0-4.0); LYMPHOCYTES % (AUTO) 6 % (12-44); MEAN CORPUSCULAR HEMOGLOBIN 28 pg (25-34); MEAN CORPUSCULAR HGB CONC 32 g/dL (32-36); MEAN CORPUSCULAR VOLUME 85 fL (80-99); MEAN PLATELET VOLUME 11.3 fL (9.0-12.2); MONOCYTES # (AUTO) 0.5 10^3/uL (0.0-1.0); MONOCYTES % (AUTO) 2 % (0-12); NEUTROPHILS # (AUTO) 21.8 10^3/uL (1.8-7.8); NEUTROPHILS % (AUTO) 91 % (42-75); PLATELET COUNT 194 10^3/uL (130-400)
[2021-12-09 04:59] LABS: ALBUMIN 2.7 GM/DL (3.2-4.5); POTASSIUM 3.2 MMOL/L (3.6-5.0)
[2021-12-09 05:01] LABS: CALCIUM 7.6 MG/DL (8.5-10.1)
[2021-12-09 05:02] LABS: TOTAL PROTEIN 4.1 GM/DL (6.4-8.2)
[2021-12-09 05:04] LABS: BILIRUBIN,TOTAL 0.9 MG/DL (0.1-1.0)
[2021-12-09 05:05] LABS: PHOSPHORUS 2.3 MG/DL (2.3-4.7)
[2021-12-09 05:06] LABS: CREATININE SERUM 0.72 MG/DL (0.60-1.30)
[2021-12-09 05:08] LABS: MAGNESIUM 1.8 MG/DL (1.6-2.4)
[2021-12-09] MEDS: KCL 20 MEQ TAB (K-DUR) PO SCH (05:17)
[2021-12-09] MEDS: MAGNESIUM 1 GM/100 ML IVPB 100 ML IV SCH (05:17)
[2021-12-09 05:31] LABS: ATYPICAL LYMPHOCYTES 2 %; BAND NEUTROPHILS 1 %; LYMPHOCYTES % (MANUAL) 6 %; MONOCYTES % (MANUAL) 2 %; NEUTROPHILS % (MANUAL) 89 %; NUCLEATED RED BLOOD CELLS 1
[2021-12-09 05:32] LABS: ACANTHOCYTES SLIGHT; ANISOCYTOSIS SLIGHT; BURR CELLS SLIGHT; ELLIPT/OVALOCYTES SLIGHT; HYPOCHROMASIA SLIGHT; MICROCYTOSIS SLIGHT; TOXIC GRANULATION/VACUOLAZATIO 1+
[2021-12-09] MEDS: POTASSIUM CL 10MEQ/50ML IVPB 50 ML IV SCH ×4 (05:49→07:40)
[2021-12-09] MEDS: NOREPINEPHRINE 8 MG/250 ML 250 ML IV SCH (05:50)
--- NOTE | 2021-12-09 08:08 | Cardiology Progress Note ---
Subjective Date Seen by Provider: Dec 09, 2021 Time Seen by Provider: 08:06 Subjective/Events-last exam Patient is laying down in bed, on BiPAP. Denied any chest pain Review of Systems General: No Chills, No Night Sweats; Fatigue, Malaise; No Appetite, No Other HEENT: No Head Aches, No Visual Changes, No Eye Pain, No Ear Pain, No Dysphasia, No Sinus Congestion, No Post Nasal Drip, No Sore Throat, No Other Pulmonary: Dyspnea; No Cough, No Pleuritic Chest Pain, No Other Cardiovascular: No: Chest Pain, Palpitations, Orthopnea, Paroxysmal Noc. Dyspnea, Edema, Lt Headedness, Other Objective-Cardiology Exam Last Set of Vital Signs Vital Signs 12/08/21 12/09/21 12/09/21 12/09/21 23:16 04:00 06:00 06:45 Temp 36.6 Pulse 73 Resp 18 B/P (MAP) 108/67 Pulse Ox 98 O2 Delivery NIV Bilevel O2 Flow Rate 60.00 FiO2 60 I&O Intake and Output 12/09/21 00:00 Intake Total 3026 ml Output Total 500 ml Balance 2526 ml Intake Oral 275 ml IV Total 2751 ml Output Urine Total 450 ml Stool Total 50 ml # Bowel Movements 4 General: Alert HEENT: Atraumatic, PERRLA Neck: Supple, No JVD, No Thyromegaly Lungs: Other (rales) Heart: Regular Rate, Normal S1, Normal S2 Abdomen: Other (hypoactive bowel sounds, ostomy in place with no stool in bag, diffuse ttp) Extremities: Other (2+ pitting edema in legs) Skin: No Rashes, No Breakdown, No Significant Lesion Neuro: Normal Speech, Normal Tone, Sensation Intact Psych/Mental Status: Mood NL, Other (oriented to self and location only) Results Lab Laboratory Tests 12/09/21 04:43 A/P-Cardiology Admission Diagnosis Sepsis Septic shock Tachycardia UTI Assessment/Plan Sepsis with septic shock, rectal abscess, had I&D, awaiting pathology Status post endoscopic Miley's with end colostomy Recovering slowly Acute on chronic respiratory failure, currently maintained on BiPAP Patient had COVID-19 infection about 5 weeks ago, her Covid test reported as detected. Discussed the management plan with Dr. Adams and patient does not require isolation CT scan showed scarring and fibrosis secondary to Covid and extensive pleural effusion Status post thoracentesis done by Dr. Saunders. Recurrent paroxysmal supraventricular tachycardia, had multiple episodes. Had few episodes of sinus tachycardia secondary to respiratory failure and hypoxemia. Currently heart rate is better controlled. Hypotension, secondary to sepsis. Pressure is better today. Continue to monitor Perirectal mass, underwent diverging colectomy with colostomy. Pathology suggestive of squamous cell carcinoma Managed by primary care physician UTI, receiving antibiotics. History of anxiety, depression, managed by primary care physician Failure to thrive. SILVIA OH MD Dec 09, 2021 08:08
--- NOTE | 2021-12-09 08:16 | Progress Note - Surgery ---
LURDES ROONEY 12/09/21 0816: Subjective Date Seen by a Provider: Dec 09, 2021 Time Seen by a Provider: 07:50 Subjective/Events-last exam Patient lying in bed on BiPAP at 55% O2. Patient appears to have declined since I saw her yesterday. 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 Patient's stoma appears pink and patent. No stool in her ostomy bag, but no blood noted today either. Review of Systems Pulmonary: Dyspnea Cardiovascular: No: Chest Pain Gastrointestinal: Abdominal Pain; No: Nausea, Vomiting Objective Exam Vital Signs Date Time Temp Pulse Resp B/P (MAP) Pulse Ox O2 Delivery O2 Flow Rate FiO2 12/09/21 06:45 73 18 108/67 98 12/09/21 06:30 72 16 115/64 97 12/09/21 06:15 75 18 115/70 96 12/09/21 06:00 86 38 82/55 NIV Bilevel 60.00 12/09/21 05:45 74 13 123/79 94 12/09/21 05:30 80 21 86/67 85 12/09/21 05:15 73 15 119/79 94 12/09/21 05:00 75 16 114/76 93 NIV Bilevel 60.00 12/09/21 04:45 75 15 117/76 96 12/09/21 04:30 74 14 119/73 94 12/09/21 04:15 75 15 114/69 94 12/09/21 04:08 109/71 12/09/21 04:08 109/71 12/09/21 04:00 76 19 109/71 95 NIV Bilevel 60.00 12/09/21 04:00 94 NIV Bilevel 60 12/09/21 03:45 79 17 82/59 72 12/09/21 03:30 76 18 114/68 95 12/09/21 03:15 78 15 109/67 94 12/09/21 03:00 78 15 107/68 94 NIV Bilevel 60.00 12/09/21 02:45 74 15 106/67 95 12/09/21 02:45 74 18 96 60.00 12/09/21 02:30 73 17 105/68 93 12/09/21 02:15 75 17 103/68 93 12/09/21 02:00 75 17 98/61 92 NIV Bilevel 60.00 12/09/21 01:45 75 18 101/61 90 12/09/21 01:38 76 18 94/59 91 12/09/21 01:15 76 18 94/63 95 12/09/21 01:00 78 12/09/21 01:00 78 16 99/59 95 NIV Bilevel 60.00 12/09/21 00:45 76 15 93/69 93 12/09/21 00:30 78 17 99/67 95 12/09/21 00:15 74 17 100/64 92 12/09/21 00:00 75 17 100/63 92 NIV Bilevel 60.00 12/08/21 23:46 94 NIV Bilevel 60 12/08/21 23:45 76 16 95/60 95 12/08/21 23:30 80 17 91/58 93 12/08/21 23:16 36.6 NIV Bilevel 60.00 12/08/21 23:15 77 18 103/61 96 12/08/21 23:00 79 17 97/60 97 NIV Bilevel 65.00 12/08/21 22:45 82 17 91/56 95 NIV Bilevel 65.00 12/08/21 22:43 114/63 12/08/21 22:30 81 22 114/63 100 NIV Bilevel 65.00 12/08/21 22:24 85 21 97 65.00 12/08/21 22:17 101 24 108/57 94 NIV Bilevel 65.00 12/08/21 22:00 79 22 99/69 90 NIV Bilevel 65.00 12/08/21 21:45 79 21 81/46 92 NIV Bilevel 65.00 12/08/21 21:30 79 22 114/66 91 NIV Bilevel 65.00 12/08/21 21:15 82 26 97/57 93 NIV Bilevel 65.00 12/08/21 21:00 80 23 113/59 93 NIV Bilevel 65.00 12/08/21 20:45 80 24 111/64 90 NIV Bilevel 65.00 12/08/21 20:36 80 21 105/83 92 NIV Bilevel 65.00 12/08/21 20:30 80 22 56/44 90 NIV Bilevel 65.00 12/08/21 20:15 80 23 118/65 93 NIV Bilevel 65.00 4/11/22 20:00 80 22 127/67 93 NIV Bilevel 65.00 12/08/21 19:45 81 23 101/52 79 NIV Bilevel 65.00 12/08/21 19:42 36.6 NIV Bilevel 65.00 12/08/21 19:30 94 NIV Bilevel 65 12/08/21 19:30 80 21 114/73 90 NIV Bilevel 65.00 12/08/21 19:15 80 24 117/68 88 NIV Bilevel 65.00 12/08/21 19:00 81 22 116/64 88 NIV Bilevel 65.00 12/08/21 19:00 81 12/08/21 18:44 79 24 91 60.00 12/08/21 18:30 82 27 103/59 90 NIV Bilevel 60.00 12/08/21 18:15 82 24 73/35 92 NIV Bilevel 60.00 12/08/21 18:00 81 24 99/71 90 NIV Bilevel 60.00 12/08/21 17:45 80 24 106/54 92 NIV Bilevel 60.00 12/08/21 17:30 80 24 117/74 95 NIV Bilevel 60.00 12/08/21 17:18 36.63033 83 38 131/65 98 NIV/Bilevel 60.00 12/08/21 17:15 85 28 93/69 90 NIV Bilevel 60.00 12/08/21 17:09 83 131/65 12/08/21 17:00 84 23 97/73 98 NIV Bilevel 60.00 12/08/21 16:45 81 21 105/77 93 NIV Bilevel 60.00 12/08/21 16:30 81 26 124/69 94 NIV Bilevel 60.00 12/08/21 16:15 81 27 126/67 97 NIV Bilevel 60.00 12/08/21 16:00 89 26 113/74 86 NIV Bilevel 60.00 12/08/21 16:00 97 NIV Bilevel 60 12/08/21 15:45 84 27 108/67 99 NIV Bilevel 60.00 12/08/21 15:30 83 38 131/65 98 NIV Bilevel 60.00 12/08/21 15:15 82 23 90/66 96 NIV Bilevel 60.00 12/08/21 15:00 84 26 111/67 98 NIV Bilevel 60.00 12/08/21 14:57 NIV Bilevel 60.00 12/08/21 14:56 NIV Bilevel 80.00 12/08/21 14:45 84 24 122/68 100 NIV Bilevel 80.00 12/08/21 14:30 81 23 128/76 97 NIV Bilevel 80.00 12/08/21 14:27 81 24 80.00 12/08/21 14:15 84 25 105/73 98 NIV Bilevel 80.00 12/08/21 14:00 82 26 102/67 99 NIV Bilevel 80.00 12/08/21 13:45 84 24 94/66 89 NIV Bilevel 80.00 12/08/21 13:30 85 25 102/78 99 NIV Bilevel 80.00 12/08/21 13:15 85 23 88/58 91 NIV Bilevel 80.00 12/08/21 13:00 85 25 94/53 91 NIV Bilevel 80.00 12/08/21 13:00 86 12/08/21 12:45 87 24 105/64 98 NIV Bilevel 80.00 12/08/21 12:30 90 25 108/69 97 NIV Bilevel 80.00 12/08/21 12:17 36.89400 101 25 67/49 83 10.00 12/08/21 12:15 107 24 114/71 98 High Flow N/C 10.00 12/08/21 12:00 35.9 12/08/21 12:00 101 25 67/49 High Flow N/C 10.00 12/08/21 12:00 100 NIV Bilevel 80 12/08/21 11:45 90 25 83/56 High Flow N/C 10.00 12/08/21 11:30 87 22 85/61 High Flow N/C 10.00 12/08/21 11:15 91 35 84/49 High Flow N/C 10.00 12/08/21 11:00 92 37 114/54 High Flow N/C 10.00 12/08/21 10:45 101 25 71/57 High Flow N/C 10.00 12/08/21 10:30 87 30 82/53 High Flow N/C 10.00 12/08/21 10:15 85 23 83/50 High Flow N/C 10.00 12/08/21 10:00 86 21 80/59 83 High Flow N/C 10.00 12/08/21 09:45 88 24 77/54 High Flow N/C 10.00 12/08/21 09:30 87 24 99/60 High Flow N/C 10.00 12/08/21 09:15 88 24 87/59 83 High Flow N/C 10.00 12/08/21 09:00 89 28 90/65 82 High Flow N/C 10.00 12/08/21 08:15 106 32 96/60 I & O 12/09/21 07:00 Intake Total 3100 ml Output Total 1795 ml Balance 1305 ml Capillary Refill : Less Than 3 Seconds General Appearance: Chronically ill, Mild Distress, Thin Neck: Supple Respiratory: Decreased Breath Sounds, Other (BiPAP currently) Cardiovascular: Regular Rate, Rhythm, Normal Peripheral Pulses Gastrointestinal: soft, tenderness, other (Colostomy pink and patent) Extremity: Pedal Edema (2+ pitting edema bilaterally; worse than yesterday), Swelling (bilateral upper extremities ), Other (SCD's in place) Neurologic/Psychiatric: Alert, Oriented x3 Skin: Normal Color, Warm/Dry Results Lab Laboratory Tests 12/09/21 04:43: White Blood Count 24.0H, Red Blood Count 2.55L, Hemoglobin 7.0L, Hematocrit 22L, Mean Corpuscular Volume 85, Mean Corpuscular Hemoglobin 28, Mean Corpuscular Hemoglobin Concent 32, Red Cell Distribution Width 18.6H, Platelet Count 194, Mean Platelet Volume 11.3, Immature Granulocyte % (Auto) 1, Neutrophils (%) (Auto) 91H, Lymphocytes (%) (Auto) 6L, Monocytes (%) (Auto) 2, Eosinophils (%) (Auto) 0, Basophils (%) (Auto) 0, Neutrophils # (Auto) 21.8H, Lymphocytes # (Auto) 1.4, Monocytes # (Auto) 0.5, Eosinophils # (Auto) 0.0, Basophils # (Auto) 0.0, Immature Granulocyte # (Auto) 0.3H, Neutrophils % (Manual) 89, Lymphocytes % (Manual) 6, Monocytes % (Manual) 2, Band Neutrophils 1, Nucleated Red Blood Cells 1, Atypical Lymphocytes 2, Toxic Granulation 1+, Hypochromasia SLIGHT, Basophilic Stippling , Anisocytosis SLIGHT, Microcytosis SLIGHT, Marva Cells SLIGHT, Elliptocytes SLIGHT, Acanthocytes SLIGHT, Sodium Level 139, Potassium Level 3.2L, Chloride Level 109H, Carbon Dioxide Level 12L, Anion Gap 18H, Blood Urea Nitrogen 6L, Creatinine 0.72, Estimat Glomerular Filtration Rate 94, BUN/Creatinine Ratio 8, Glucose Level 108H, Calcium Level 7.6L, Corrected Calcium 8.6, Phosphorus Level 2.3, Magnesium Level 1.8, Total Bilirubin 0.9, Aspartate Amino Transf (AST/SGOT) 32, Alanine Aminotransferase (ALT/SGPT) 14, Alkaline Phosphatase 97, Total Protein 4.1L, Albumin 2.7L Microbiology 12/07/21 Gram Stain - Final, Resulted 12/07/21 Body Fluid Culture - Preliminary, Resulted No growth 12/03/21 C. difficile GDH Antigen & Toxins - Final, Complete 12/03/21 MRSA Screen - Final, Complete 12/01/21 Blood Culture - Final, Complete No growth 12/01/21 Urine Culture - Final, Complete Citrobacter freundii complex Enterococcus faecalis Assessment/Plan Assessment/Plan Assessment/Plan s/p Laparoscopic Miley's procedure with end colostomy for diversion - post-op day 4 Septic Shock - Criteria but no source identified - Hypotensive requiring norepinephrine, phenylephrine, vasopressin - Leukocytosis, 27.7 today, 27.5 yesterday - Tachycardia, transient, no tachycardic when I visited this AM - Acute Respiratory failure, requiring High flow NC/BiPAP intermittently, currently on BiPAP - UTI Rectal mass with ulceration/perforation - pathology shows invasive moderately differentiated squamous cell carcinoma Rectal bleed - d/t above Bilateral pleural effusions - Large, confirmed on CT - Likely transudative d/t hypoalbuminemia - S/P Left thoracentesis, 12/07/21, with 700ml collected Anemia - 7.0 this morning - Continue to monitor Hyponatremia, resolved UTI - On Levofloxacin - C. freundii complex Hypokalemia, resolved Patient's stoma appears to be healing appropriately, continue to monitor. Patient is still requiring pressors to maintain blood pressure, managed by eICU team, continue to monitor. Hemoglobin is 7.0, from 7.7 yesterday, continue to monitor. 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 Patient currently on BiPAP 55%, had thoracentesis 12/07/21, continue to monitor. Clinical Quality Measures DVT/VTE Risk/Contraindication: Contraindications-Pharm: Other *list below* Other: gi bleed ESTELLA DONNELLY DO 12/09/21 1150: Subjective Time Seen by a Provider: 11:24 Subjective/Events-last exam Pt seen and examined, BiPap in place. States she is doing ok, pain is controlled. Review of Systems Pulmonary: Dyspnea Cardiovascular: No: Chest Pain Gastrointestinal: Abdominal Pain; No: Nausea, Vomiting Objective Exam General Appearance: Chronically ill, Mild Distress, Thin Respiratory: Decreased Breath Sounds Gastrointestinal: tenderness, other (Colostomy pink and patent) Extremity: Pedal Edema (2+ pitting edema bilaterally; worse than yesterday), Swelling (bilateral upper extremities ), Other (SCD's in place) Assessment/Plan Assessment/Plan Assessment/Plan s/p Laparoscopic Miley's procedure with end colostomy for diversion - post-op day 4 Septic Shock - Criteria but no source identified - Hypotensive requiring norepinephrine, phenylephrine, vasopressin - Leukocytosis, 24.0 today, 27.5 yesterday - Tachycardia, transient, no tachycardic when I visited this AM - Acute Respiratory failure, requiring High flow NC/BiPAP intermittently, currently on BiPAP - UTI Rectal mass with ulceration/perforation - pathology shows invasive moderately differentiated squamous cell carcinoma Rectal bleed - d/t above Bilateral pleural effusions - Large, confirmed on CT - Likely transudative d/t hypoalbuminemia - S/P Left thoracentesis, 12/07/21, with 700ml collected Anemia - 7.0 this morning, she is getting another unit Hyponatremia, resolved UTI - On Levofloxacin - C. freundii complex Hypokalemia, resolved Patient's stoma appears to be healing appropriately, continue to monitor. Patient is still requiring pressors to maintain blood pressure, managed by eICU team, continue to monitor. Hemoglobin is 7.0, from 7.7 yesterday, continue to monitor. 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 Patient currently on BiPAP 55%, had thoracentesis 12/07/21, continue to monitor. Supervisory-Addendum Brief Verification & Attestation Participated in pt care: history, MDM, physical Personally performed: exam, history, MDM, supervision of care Care discussed with: Medical Student Procedures: n/a Verification and Attestation of Medical Student E/M Service A medical student performed and documented this service. I then reviewed and verified all information documented by the medical student and made modifications to such information, when appropriate. I personally performed a physical exam, medical decision making and then discussed any differences between the notes and made revisions as necessary to create one note. Estella Donnelly , 12/09/21 , 11:50 LURDES ROONEY Dec 09, 2021 08:16 ESTELLA DONNELLY DO Dec 09, 2021 11:50
[2021-12-09] MEDS: PANTOPRAZOLE 40 MG (PROTONIX) TAB PO SCH (09:25)
[2021-12-09] MEDS: SERTRALINE 100 MG (ZOLOFT) TAB PO SCH (09:25)
[2021-12-09] MEDS: CYANOCOBALAMIN 1,000 MCG (VITAMIN B-12) TABLET PO SCH (09:27)
--- NOTE | 2021-12-09 10:14 | Tele-ICU Progress Note ---
Subjective Date Seen by a Provider: Dec 09, 2021 Time Seen by a Provider: 10:13 Subjective/Events-last exam (Tele-ICU Physician , Progress Note ) Available chart/ vitals / labs / Images reviewed Video assessment done using teleICU camera, rest of exam as per RN Discussed with RN , EXAM PER RN Events overnight : on bipap 08/04 70 % rr 18 tv 800 Afebrile FiO2 - 4 l I/O = + Drips: Pressors: turner 125 / vaso Consultants: sx Hospital course: (12/01) 61 y/o female admitted for failure to thrive, +UTI, perineal abscess. , GIB, liver mass (12/02) transferred to ICU for hypotension 12/05- s/p -s/p Lap Miley's with end colostomy for diversion 12/07 S/P LEFT thoracentesis, 12/07/21, with 700ml A/P Shock , septic - cont turner / vaso - transfusion 1 unit PRBC 12/09 - correct acidosis Acute resp failure - multifactoerial - noncard pulm edema , effusions , compensation for acidosis, PNA = cont NIPPV , correct acifosis - repeat cxr today MEt acidosis - add bicarb gtt 12/09 -Rectal mass with perforation and abscess - pathology + CA -s/p Lap Miley's with end colostomy for diversion. 12/05/21 - cont abx - levofloxacin - as per sx UTI - cont abx Bilateral pleural effusions - S/P LEFT thoracentesis, 12/07/21, with 700ml -- transudative Anemia -Rectal Bleed secondary to above - Hb trending sown - transfuse prbc 12/09 given shock and 2 pressors invasive moderately differentiated squamous cell carcinoma - resul;ts being discussed with patient by PCP Lines : R IJ 12/04 (Central Line Necessity Reviewed) Rordiguez: + OG: Nutrition: very poor intake Analgesia: Anxiety/ delirium VTE Prophylaxis: scd Stress Ulcer Prophylaxis: PPI Plans in collaboration with bedside consultants and IM MDs. Discussed with RN to reach out if any questions or concerns A total of 31 minutes of critical care time was devoted to this patient today, required to treat and/or prevent further deterioration of critical care condition ( as above) . Sepsis Event Evaluation Height, Weight, BMI Height: '" Weight: lbs. oz. kg; 15.39 BMI Method: Focused Exam Lactate Level 12/09/21 08:08: Lactic Acid Level 1.64 Lactic Acid Level Laboratory Tests Test 12/09/21 08:08 Lactic Acid Level 1.64 MMOL/L (0.50-2.00) Exam Exam Patient acknowledged, consented, and participated in this virtual visit which was conducted using real time audio/video Vital Signs Date Time Temp Pulse Resp B/P (MAP) Pulse Ox O2 Delivery O2 Flow Rate FiO2 12/09/21 09:36 36.34033 73 21 119/63 97 NIV/Bilevel 60.00 12/09/21 08:06 74 20 97 55.00 12/09/21 08:00 73 18 110/61 96 12/09/21 08:00 36.0 12/09/21 07:00 74 20 104/65 98 12/09/21 06:45 73 18 108/67 98 12/09/21 06:30 72 16 115/64 97 12/09/21 06:15 75 18 115/70 96 12/09/21 06:00 86 38 82/55 NIV Bilevel 60.00 12/09/21 05:45 74 13 123/79 94 12/09/21 05:30 80 21 86/67 85 12/09/21 05:15 73 15 119/79 94 12/09/21 05:00 75 16 114/76 93 NIV Bilevel 60.00 12/09/21 04:45 75 15 117/76 96 12/09/21 04:30 74 14 119/73 94 12/09/21 04:15 75 15 114/69 94 12/09/21 04:08 109/71 12/09/21 04:08 109/71 12/09/21 04:00 76 19 109/71 95 NIV Bilevel 60.00 12/09/21 04:00 94 NIV Bilevel 60 12/09/21 03:45 79 17 82/59 72 12/09/21 03:30 76 18 114/68 95 12/09/21 03:15 78 15 109/67 94 12/09/21 03:00 78 15 107/68 94 NIV Bilevel 60.00 12/09/21 02:45 74 15 106/67 95 12/09/21 02:45 74 18 96 60.00 12/09/21 02:30 73 17 105/68 93 12/09/21 02:15 75 17 103/68 93 12/09/21 02:00 75 17 98/61 92 NIV Bilevel 60.00 12/09/21 01:45 75 18 101/61 90 12/09/21 01:38 76 18 94/59 91 12/09/21 01:15 76 18 94/63 95 12/09/21 01:00 78 12/09/21 01:00 78 16 99/59 95 NIV Bilevel 60.00 12/09/21 00:45 76 15 93/69 93 12/09/21 00:30 78 17 99/67 95 12/09/21 00:15 74 17 100/64 92 12/09/21 00:00 75 17 100/63 92 NIV Bilevel 60.00 12/08/21 23:46 94 NIV Bilevel 60 12/08/21 23:45 76 16 95/60 95 12/08/21 23:30 80 17 91/58 93 12/08/21 23:16 36.6 NIV Bilevel 60.00 12/08/21 23:15 77 18 103/61 96 12/08/21 23:00 79 17 97/60 97 NIV Bilevel 65.00 12/08/21 22:45 82 17 91/56 95 NIV Bilevel 65.00 12/08/21 22:43 114/63 12/08/21 22:30 81 22 114/63 100 NIV Bilevel 65.00 12/08/21 22:24 85 21 97 65.00 12/08/21 22:17 101 24 108/57 94 NIV Bilevel 65.00 12/08/21 22:00 79 22 99/69 90 NIV Bilevel 65.00 12/08/21 21:45 79 21 81/46 92 NIV Bilevel 65.00 12/08/21 21:30 79 22 114/66 91 NIV Bilevel 65.00 12/08/21 21:15 82 26 97/57 93 NIV Bilevel 65.00 12/08/21 21:00 80 23 113/59 93 NIV Bilevel 65.00 12/08/21 20:45 80 24 111/64 90 NIV Bilevel 65.00 12/08/21 20:36 80 21 105/83 92 NIV Bilevel 65.00 12/08/21 20:30 80 22 56/44 90 NIV Bilevel 65.00 12/08/21 20:15 80 23 118/65 93 NIV Bilevel 65.00 12/08/21 20:00 80 22 127/67 93 NIV Bilevel 65.00 12/08/21 19:45 81 23 101/52 79 NIV Bilevel 65.00 12/08/21 19:42 36.6 NIV Bilevel 65.00 12/08/21 19:30 94 NIV Bilevel 65 12/08/21 19:30 80 21 114/73 90 NIV Bilevel 65.00 12/08/21 19:15 80 24 117/68 88 NIV Bilevel 65.00 12/08/21 19:00 81 22 116/64 88 NIV Bilevel 65.00 12/08/21 19:00 81 12/08/21 18:44 79 24 91 60.00 12/08/21 18:30 82 27 103/59 90 NIV Bilevel 60.00 12/08/21 18:15 82 24 73/35 92 NIV Bilevel 60.00 12/08/21 18:00 81 24 99/71 90 NIV Bilevel 60.00 12/08/21 17:45 80 24 106/54 92 NIV Bilevel 60.00 12/08/21 17:30 80 24 117/74 95 NIV Bilevel 60.00 12/08/21 17:18 36.46343 83 38 131/65 98 NIV/Bilevel 60.00 12/08/21 17:15 85 28 93/69 90 NIV Bilevel 60.00 12/08/21 17:09 83 131/65 12/08/21 17:00 84 23 97/73 98 NIV Bilevel 60.00 12/08/21 16:45 81 21 105/77 93 NIV Bilevel 60.00 12/08/21 16:30 81 26 124/69 94 NIV Bilevel 60.00 12/08/21 16:15 81 27 126/67 97 NIV Bilevel 60.00 12/08/21 16:00 89 26 113/74 86 NIV Bilevel 60.00 12/08/21 16:00 97 NIV Bilevel 60 12/08/21 15:45 84 27 108/67 99 NIV Bilevel 60.00 12/08/21 15:30 83 38 131/65 98 NIV Bilevel 60.00 12/08/21 15:15 82 23 90/66 96 NIV Bilevel 60.00 12/08/21 15:00 84 26 111/67 98 NIV Bilevel 60.00 12/08/21 14:57 NIV Bilevel 60.00 12/08/21 14:56 NIV Bilevel 80.00 12/08/21 14:45 84 24 122/68 100 NIV Bilevel 80.00 12/08/21 14:30 81 23 128/76 97 NIV Bilevel 80.00 12/08/21 14:27 81 24 80.00 12/08/21 14:15 84 25 105/73 98 NIV Bilevel 80.00 12/08/21 14:00 82 26 102/67 99 NIV Bilevel 80.00 12/08/21 13:45 84 24 94/66 89 NIV Bilevel 80.00 12/08/21 13:30 85 25 102/78 99 NIV Bilevel 80.00 12/08/21 13:15 85 23 88/58 91 NIV Bilevel 80.00 12/08/21 13:00 85 25 94/53 91 NIV Bilevel 80.00 12/08/21 13:00 86 12/08/21 12:45 87 24 105/64 98 NIV Bilevel 80.00 12/08/21 12:30 90 25 108/69 97 NIV Bilevel 80.00 12/08/21 12:17 36.05850 101 25 67/49 83 10.00 12/08/21 12:15 107 24 114/71 98 High Flow N/C 10.00 12/08/21 12:00 35.9 12/08/21 12:00 101 25 67/49 High Flow N/C 10.00 12/08/21 12:00 100 NIV Bilevel 80 12/08/21 11:45 90 25 83/56 High Flow N/C 10.00 12/08/21 11:30 87 22 85/61 High Flow N/C 10.00 12/08/21 11:15 91 35 84/49 High Flow N/C 10.00 12/08/21 11:00 92 37 114/54 High Flow N/C 10.00 12/08/21 10:45 101 25 71/57 High Flow N/C 10.00 12/08/21 10:30 87 30 82/53 High Flow N/C 10.00 4/11/22 10:15 85 23 83/50 High Flow N/C 10.00 I & O 12/09/21 07:00 Intake Total 3100 ml Output Total 1795 ml Balance 1305 ml Height & Weight Height: '" Weight: lbs. oz. kg; 15.39 BMI Method: General Appearance: Chronically ill, Mild Distress, Thin Neck: Supple Respiratory: Decreased Breath Sounds, Other (BiPAP currently) Cardiovascular: Regular Rate, Rhythm, Normal Peripheral Pulses Capillary Refill: Less Than 3 Seconds Gastrointestinal: soft, tenderness, other (Colostomy pink and patent) Extremity: Pedal Edema (2+ pitting edema bilaterally; worse than yesterday), Swelling (bilateral upper extremities ), Other (SCD's in place) Neurologic/Psychiatric: Alert, Oriented x3 Skin: Normal Color, Warm/Dry Results Lab Laboratory Tests 12/07/21 16:08 12/08/21 04:08 12/09/21 04:43 Assessment/Plan Assessment/Plan ` SHAGGY CHANG MD Dec 09, 2021 10:14
--- NOTE | 2021-12-09 10:38 | Diagnostic Imaging Report ---
INDICATION: Hypoxia. TECHNIQUE/COMPARISON: An AP view of the chest was obtained with comparison made to the study of 12/07/2021. FINDINGS: Mixed interstitial and alveolar densities are again seen throughout the lungs bilaterally with blunting of the right costophrenic sulcus. Overall, there has been a slight improvement in aeration of the lungs. No pneumothorax is identified. The right jugular central venous catheter remains in place. IMPRESSION: Bilateral pulmonary opacity has shown mild improvement when compared to the previous study. Dictated by: Dictated on workstation # [id number]
[2021-12-09] MEDS: DOCUSATE SODIUM 100 MG (COLACE) CAP PO SCH ×3 (10:57→21:28)
[2021-12-09] MEDS: SENNOSIDES 8.6 MG (SENOKOT) TAB PO SCH ×3 (10:57→21:28)
[2021-12-09] MEDS: SODIUM BICARBONATE 8.4% VIAL 100 MEQ in 1/2 NS IV SOLUTION 1,000 ML IV SCH (10:58)
--- NOTE | 2021-12-09 14:41 | Progress Note ---
Subjective Subjective/Events-last exam Pt on bipap this morning, states she is "okay", but does admit abdominal pain. Discussed results of biopsy and uncertain possible treatments especially given the current severity of her illness. Focused Exam Lactate Level 12/09/21 08:08: Lactic Acid Level 1.64 Objective Exam Last Set of Vital Signs Vital Signs Date Time Temp Pulse Resp B/P (MAP) Pulse Ox O2 Delivery O2 Flow Rate FiO2 12/09/21 14:00 84 21 103/72 100 NIV Bilevel 60.00 12/09/21 09:36 36.52435 12/09/21 04:00 60 Capillary Refill : Less Than 3 Seconds I&O Intake and Output 12/08/21 23:59 Intake Total 3026 ml Output Total 500 ml Balance 2526 ml Intake Oral 275 ml IV Total 2751 ml Output Urine Total 450 ml Stool Total 50 ml # Bowel Movements 4 General: Alert, Mild Distress Lungs: Other (decreased air movement) Heart: Regular Rate Abdomen: Normal Bowel Sounds, Other (ttp, ostomy in place with dark nearly black soft stool) Extremities: Other (3+ pitting edema both legs, 2+ pitting edema of arms) Neuro: Normal Speech Psych/Mental Status: Other (appropriately tearful) Results/Procedures Lab Laboratory Tests 12/09/21 04:43: White Blood Count 24.0H, Red Blood Count 2.55L, Hemoglobin 7.0L, Hematocrit 22L, Mean Corpuscular Volume 85, Mean Corpuscular Hemoglobin 28, Mean Corpuscular Hemoglobin Concent 32, Red Cell Distribution Width 18.6H, Platelet Count 194, Mean Platelet Volume 11.3, Immature Granulocyte % (Auto) 1, Neutrophils (%) (Auto) 91H, Lymphocytes (%) (Auto) 6L, Monocytes (%) (Auto) 2, Eosinophils (%) (Auto) 0, Basophils (%) (Auto) 0, Neutrophils # (Auto) 21.8H, Lymphocytes # (Auto) 1.4, Monocytes # (Auto) 0.5, Eosinophils # (Auto) 0.0, Basophils # (Auto) 0.0, Immature Granulocyte # (Auto) 0.3H, Neutrophils % (Manual) 89, Lymphocytes % (Manual) 6, Monocytes % (Manual) 2, Band Neutrophils 1, Nucleated Red Blood Cells 1, Atypical Lymphocytes 2, Toxic Granulation 1+, Hypochromasia SLIGHT, Basophilic Stippling , Anisocytosis SLIGHT, Microcytosis SLIGHT, Marva Cells SLIGHT, Elliptocytes SLIGHT, Acanthocytes SLIGHT, Sodium Level 139, Potassium Level 3.2L, Chloride Level 109H, Carbon Dioxide Level 12L, Anion Gap 18H, Blood Urea Nitrogen 6L, Creatinine 0.72, Estimat Glomerular Filtration Rate 94, BUN/Creatinine Ratio 8, Glucose Level 108H, Calcium Level 7.6L, Corrected Calcium 8.6, Phosphorus Level 2.3, Magnesium Level 1.8, Total Bilirubin 0.9, Aspartate Amino Transf (AST/SGOT) 32, Alanine Aminotransferase (ALT/SGPT) 14, Alkaline Phosphatase 97, Total Protein 4.1L, Albumin 2.7L 12/09/21 08:08: Lactic Acid Level 1.64 Microbiology 12/07/21 Gram Stain - Final, Resulted 12/07/21 Body Fluid Culture - Preliminary, Resulted No growth 12/03/21 C. difficile GDH Antigen & Toxins - Final, Complete 12/03/21 MRSA Screen - Final, Complete 12/01/21 Blood Culture - Final, Complete No growth 12/01/21 Urine Culture - Final, Complete Citrobacter freundii complex Enterococcus faecalis Radiology Date of Exam:12/01/21 CT ABDOMEN/PELVIS W PROCEDURE: CT abdomen and pelvis with contrast. TECHNIQUE: Multiple contiguous axial images were obtained through the abdomen and pelvis after administration of intravenous contrast. Auto Exposure Controls were utilized during the CT exam to meet ALARA standards for radiation dose reduction. All CT scans use one or more of the following dose optimizing techniques: automated exposure control, MA and/or KvP adjustment based on patient size and exam type or iterative reconstruction. INDICATION: Abscess, pain. COMPARISON: October 13, 2021. FINDINGS: Calcified granuloma within the right middle lobe. The lungs are otherwise clear. Large hiatal hernia. Hypodensity within the liver adjacent to the falciform ligament and gallbladder fossa is again identified. The liver is otherwise unremarkable. The spleen is unremarkable. The adrenal glands are unremarkable. The pancreas is unremarkable. The gallbladder is at the upper limits of normal in size without adjacent inflammatory stranding. Advanced vascular calcifications within the abdominal aorta and its branch vessels without aneurysmal dilatation of the abdominal aorta. Retroaortic left renal vein. Rodriguez catheter is present within the urinary bladder, though significant amount of gas and fluid remains within the urinary bladder. 2.8 x 2.0 cm irregular gas and fluid collection is identified within the perineum just to the left of midline with associated hyperenhancement. This is seen extending along the left aspect of the rectum. This appears relatively similar to the prior examination. Diffuse mural thickening of loops of the large and small bowel is identified, which appears to be a change from the prior examination. No evidence of bowel obstruction. No abnormal adnexal mass lesion. No new adenopathy. No significant free fluid or free air. New postsurgical changes are identified associated with the proximal right femur. No new acute osseous abnormality. IMPRESSION: Persistent perineal/left perirectal gas and fluid collection remains concerning for a perirectal/perineal abscess. Overall appearance is relatively similar to the prior examination. Neoplasm at this location not excluded. New mural thickening involving the large and small bowel, felt to relate to underlying enterocolitis. There is however no evidence of bowel obstruction. Gas and fluid within the urinary bladder though a Rodriguez catheter is present within the urinary bladder. Recommend clinical correlation for functionality of this Rodriguez catheter. Large hiatal hernia. Fatty infiltration of the liver. Additional findings as above, including interval postsurgical changes involving the proximal right femur. Dictated by: Dictated on workstation # [id number] Dict: 12/01/21 1728 Trans: 12/01/21 1759 [id number] Interpreted by: YARIEL CATALAN MD Electronically signed by: YARIEL CATALAN MD 12/01/21 1754 Assessment/Plan Assessment/Plan (1) Anemia Status: Chronic Assessment & Plan: Suspect combination of iron deficiency and chronic disease, had low iron, but do not see remainder of iron studies, will check ferritin, TIBC. B12 was low normal at 192 in Fe, is on B12 at home, but anemia is normocytic. Known rectal bleeding, s/p upper and lower endoscopy, appreciate Surgery recommendations. 12/09- Hgb down to 7, transfusion per ICU. (2) Hypokalemia Status: Acute Assessment & Plan: Replace and monitor. (3) Urinary tract infection Status: Acute Assessment & Plan: Citrobacter freundii and enterococcus faecalis on culture, both sensitive to levofloxacin, continuing levofloxacin course beyond 5 days due to persistent hypotension and worsening leukocytosis. Qualifiers: Qualified Codes: N39.0 - Urinary tract infection, site not specified (4) Failure to thrive in adult Status: Chronic (5) Acute respiratory failure Status: Acute Assessment & Plan: 12/08- CTA chest 12/06/21 with bilateral pleural effusions and changes suspected to be related to history of COVID19 infection in September, s/p thoracentesis. Requiring up to 10 lpm high flow nasal cannula this am, ap preciate Johnna ICU recommendations. Nursing reports unable to obtain adequate SpO2 measurements in spite of trials of forehead, ear, multiple fingers. ABG this morning suspected to be VBG. Consider arterial line. 12/09- Continues to worsen, requiring bipap, and unable to tolerate vapotherm even for eating or brief periods. Lasix given this morning per ICU. Repeat CXR. Qualifiers: Qualified Codes: J96.01 - Acute respiratory failure with hypoxia (6) Pleural effusion Status: Acute Assessment & Plan: s/p left thoracentesis on 12/07. Ratio of pleural fluid prot ein to serum protein 0.8/3.7 = 0.22, suggesting transudate; LDH levels not done, uncertain etiology consider hypoalbuminemia, COVID19 history, malignancy. Heart failure less like given echo on 12/05 with EF 60-65%, although did have elevated pulmonary artery pressure. Nucleated cell count less than 10,000/micoL making infection less likely cause. (7) Hypotension Status: Acute Assessment & Plan: Uncertain etiology- had bleeding on admit, but is not have active brisk bleeding that would explain severity of her hypotension, did not meet sepsis criteria on admit and LA normalized early on. am Cortisol 9.4 mcg/dL, not clearly consistent with adrenal insufficiency. Adrenals normal appearing on CT. Had tachycardia with norepinephrine, now on phenylephrine and vaspressin. (8) Mass of perirectal soft tissue Status: Acute Assessment & Plan: s/p diverting ostomy per Dr. Donnelly. Pathology with squamous cell carcinoma. (9) DVT prophylaxis Status: Acute Assessment & Plan: No pharmacologic due to GI bleeding and severe anemia. (10) High anion gap metabolic acidosis Status: Acute Assessment & Plan: Uncertain cause, recheck lactic acid. (11) COVID-19 Status: Acute Assessment & Plan: History of symptomatic positive 10/13/21 when she was admitted with fracture. Asymptomatic initially on this admit, suspect prolonged positive rather than active infection. (12) Squamous cell carcinoma of rectum Status: Acute Assessment & Plan: Discussed with Oncology, they will see her tomorrow. (13) Goals of care, counseling/discussion Status: Acute Assessment & Plan: Discussed current serious situation with patient again today and in light of new biopsy information, she reaffirms full code status at this time Clinical Quality Measures DVT/VTE Risk/Contraindication: Contraindications-Pharm: Other *list below* Other: gi bleed JOSE SANDERS MD Dec 09, 2021 14:41
[2021-12-09] MEDS ORDERED: NS 100 ML (IVPB) BAG IV ONE (15:15)
[2021-12-09] MEDS ORDERED: NS IV 500 ML 500 ML IV SCH (15:30)
[2021-12-09] MEDS: DIAZEPAM INJ 10 MG/2 ML (VALIUM) SYR IVP PRN (18:36)
[2021-12-09] MEDS: traZODone 150 MG (DESYREL) TABLET PO PRN (21:28)
[2021-12-09] MEDS: morphine INJ 4 MG/ML 1 ML (VIAL/SYRINGE) IV PRN (21:44)
[2021-12-09 21:55] LABS: HEMOGLOBIN 9.7 g/dL (11.5-16.0)
[2021-12-09] MEDS ORDERED: PHENYLEPHRINE INJ 10 MG/ML (FOR PYXIS KITS ONLY) ONE (23:26)
[2021-12-09] MEDS ORDERED: NS (IVPB) 0 ML ONE (23:26)
[2021-12-10] MEDS: RT-ALBUTEROL/IPRATROPIUM 3 ML (DUONEB) VIAL INH SCH ×6 (02:52→21:45)
[2021-12-10 02:53] VITALS: BP 119/78
[2021-12-10] MEDS: VASOPRESSIN INJECTION 20 UNIT in NS (IVPB) 100 ML IV SCH ×2 (03:43→14:53)
[2021-12-10] MEDS: DIAZEPAM INJ 10 MG/2 ML (VALIUM) SYR IVP PRN ×2 (03:43→13:31)
[2021-12-10] MEDS: PHENYLEPHRINE IV SCH ×6 (05:16→16:18)
[2021-12-10 05:24] LABS: BASOPHILS % (AUTO) 0 % (0-10)
[2021-12-10 05:25] LABS: EOSINOPHILS % (AUTO) 0 % (0-10); HEMATOCRIT 27 % (35-52); HEMOGLOBIN 9.1 g/dL (11.5-16.0); LYMPHOCYTES # (AUTO) 0.7 10^3/uL (1.0-4.0); LYMPHOCYTES % (AUTO) 4 % (12-44); MEAN CORPUSCULAR HEMOGLOBIN 28 pg (25-34); MEAN CORPUSCULAR HGB CONC 34 g/dL (32-36); MEAN CORPUSCULAR VOLUME 83 fL (80-99); MEAN PLATELET VOLUME 10.8 fL (9.0-12.2); MONOCYTES # (AUTO) 0.3 10^3/uL (0.0-1.0); MONOCYTES % (AUTO) 2 % (0-12); NEUTROPHILS # (AUTO) 15.7 10^3/uL (1.8-7.8); NEUTROPHILS % (AUTO) 92 % (42-75); PLATELET COUNT 103 10^3/uL (130-400)
[2021-12-10 05:33] LABS: ALBUMIN 2.3 GM/DL (3.2-4.5)
[2021-12-10 05:35] LABS: CALCIUM 7.4 MG/DL (8.5-10.1)
[2021-12-10 05:40] LABS: CREATININE SERUM 0.71 MG/DL (0.60-1.30)
[2021-12-10 05:42] LABS: MAGNESIUM 1.7 MG/DL (1.6-2.4)
[2021-12-10] MEDS: MAGNESIUM 1 GM/100 ML IVPB 100 ML IV SCH ×3 (06:23→07:33)
[2021-12-10] MEDS: POTASSIUM CL 10MEQ/50ML IVPB 50 ML IV SCH ×6 (06:23→10:00)
[2021-12-10] MEDS: KCL 20 MEQ TAB (K-DUR) PO SCH (06:23)
[2021-12-10 06:30] VITALS: BP 119/78
[2021-12-10] MEDS: PANTOPRAZOLE 40 MG (PROTONIX) TAB PO SCH (07:43)
[2021-12-10] MEDS: SENNOSIDES 8.6 MG (SENOKOT) TAB PO SCH (07:43)
[2021-12-10] MEDS: CYANOCOBALAMIN 1,000 MCG (VITAMIN B-12) TABLET PO SCH (07:43)
[2021-12-10] MEDS: DOCUSATE SODIUM 100 MG (COLACE) CAP PO SCH (07:43)
[2021-12-10] MEDS: SERTRALINE 100 MG (ZOLOFT) TAB PO SCH (07:44)
--- NOTE | 2021-12-10 08:02 | Progress Note - Surgery ---
LURDES ROONEY 12/10/21 0802: Subjective Date Seen by a Provider: Dec 10, 2021 Time Seen by a Provider: 07:56 Subjective/Events-last exam Patient still on BiPAP, having a difficult time conversing due to the mask. Her ostomy bag has stool mixed with some small amounts of maroon blood. SS states that her son will be here tomorrow. Once her son is here can plan on having a discussion on next clinical steps. Review of Systems Cardiovascular: No: Chest Pain Gastrointestinal: Abdominal Pain; No: Nausea, Vomiting Focused Exam Lactate Level 12/09/21 08:08: Lactic Acid Level 1.64 Objective Exam Vital Signs Date Time Temp Pulse Resp B/P (MAP) Pulse Ox O2 Delivery O2 Flow Rate FiO2 12/10/21 06:30 86 21 95 60.00 12/10/21 06:00 86 19 114/84 95 NIV Bilevel 45.00 12/10/21 05:45 84 18 114/89 95 12/10/21 05:30 83 19 108/83 94 12/10/21 05:16 37.80009 85 17 95/76 92 NIV/Bilevel 45.00 12/10/21 05:15 85 17 95/76 90 12/10/21 05:00 86 20 78/60 90 NIV Bilevel 45.00 12/10/21 04:45 87 17 112/81 90 12/10/21 04:30 89 17 106/86 90 12/10/21 04:15 89 21 106/78 89 12/10/21 04:00 100 NIV Bilevel 60 12/10/21 04:00 97 24 89/71 95 NIV Bilevel 45.00 12/10/21 03:45 95 19 118/80 95 12/10/21 03:43 94 112/80 12/10/21 03:30 97 19 112/80 95 12/10/21 03:15 101 19 114/85 95 12/10/21 03:00 89 26 111/77 96 NIV Bilevel 45.00 12/10/21 02:53 82 19 95 45.00 12/10/21 02:45 81 17 119/78 93 12/10/21 02:30 81 19 109/82 94 12/10/21 02:15 81 18 118/81 94 12/10/21 02:00 85 22 118/79 95 NIV Bilevel 45.00 12/10/21 01:45 86 21 118/82 95 12/10/21 01:30 84 18 123/81 95 12/10/21 01:15 84 15 129/83 95 12/10/21 01:00 85 12/10/21 01:00 85 17 118/82 95 NIV Bilevel 45.00 12/10/21 00:45 85 19 116/84 95 12/10/21 00:30 86 18 125/91 95 12/10/21 00:15 87 16 126/85 95 12/10/21 00:00 88 18 124/88 95 NIV Bilevel 45.00 12/10/21 00:00 100 NIV Bilevel 60 12/09/21 23:45 90 18 121/86 95 12/09/21 23:33 37.48692 95 18 127/81 95 NIV/Bilevel 45.00 12/09/21 23:30 95 18 83/59 96 12/09/21 23:15 98 18 127/81 95 12/09/21 23:00 96 18 121/83 96 NIV Bilevel 45.00 12/09/21 22:47 84 20 96 45.00 12/09/21 22:47 84 22 85/63 96 12/09/21 22:45 82 20 77/57 97 12/09/21 22:30 81 19 108/74 96 12/09/21 22:15 81 21 125/98 95 NIV Bilevel 45.00 12/09/21 22:00 84 30 111/75 85 High Flow N/C 12.00 12/09/21 21:45 86 28 97/65 92 12/09/21 21:30 83 22 129/82 97 High Flow N/C 12.00 12/09/21 21:15 80 21 142/89 95 12/09/21 21:00 80 19 139/90 96 NIV Bilevel 45.00 12/09/21 20:45 82 23 135/95 96 12/09/21 20:30 85 19 129/93 96 12/09/21 20:15 82 19 119/93 96 12/09/21 20:00 36.6 12/09/21 20:00 100 NIV Bilevel 60 12/09/21 20:00 100 NIV Bilevel 60 12/09/21 20:00 84 19 134/87 96 NIV Bilevel 45.00 12/09/21 19:45 83 27 133/84 96 12/09/21 19:30 85 17 127/81 95 12/09/21 19:15 87 15 134/83 97 12/09/21 19:00 86 12/09/21 19:00 86 16 137/86 97 NIV Bilevel 45.00 12/09/21 19:00 76 12/09/21 18:46 76 21 96 45.00 12/09/21 18:00 76 16 143/87 99 NIV Bilevel 60.00 12/09/21 17:00 78 19 133/79 100 NIV Bilevel 60.00 12/09/21 16:51 35.02369 84 18 129/82 100 60.00 12/09/21 16:43 84 129/82 12/09/21 16:17 35.2 84 18 118/78 NIV Bilevel 60 12/09/21 16:03 35.8 85 103/77 100 NIV Bilevel 60 12/09/21 16:00 100 NIV Bilevel 60 12/09/21 16:00 86 18 81/57 100 NIV Bilevel 60.00 12/09/21 16:00 36.5 12/09/21 15:00 92 21 119/76 100 NIV Bilevel 60.00 12/09/21 14:34 75 23 100 60.00 12/09/21 14:00 84 21 103/72 100 NIV Bilevel 60.00 12/09/21 13:02 74 16 140/81 99 NIV Bilevel 60.00 12/09/21 12:48 77 12/09/21 12:00 93 17 117/74 100 NIV Bilevel 60.00 12/09/21 12:00 100 NIV Bilevel 60 12/09/21 11:00 75 16 67/48 100 NIV Bilevel 60.00 12/09/21 10:58 75 16 100 70.00 12/09/21 10:00 74 22 115/82 100 NIV Bilevel 60.00 12/09/21 09:36 36.09780 73 21 119/63 97 NIV/Bilevel 60.00 12/09/21 09:00 74 18 121/78 97 NIV Bilevel 60.00 12/09/21 08:06 74 20 97 55.00 12/09/21 08:00 73 18 110/61 96 12/09/21 08:00 36.0 12/09/21 08:00 98 NIV Bilevel 60 I & O 12/10/21 07:00 Intake Total 400 ml Output Total 1125 ml Balance -725 ml Capillary Refill : Less Than 3 Seconds General Appearance: Chronically ill, Mild Distress, Thin Neck: Supple Respiratory: Decreased Breath Sounds, Other (BiPAP) Cardiovascular: Regular Rate, Rhythm, Normal Peripheral Pulses Gastrointestinal: tenderness, other (Colostomy pink and patent; stool mixed with small amounts of maroon blood in ostomy bag) Extremity: Pedal Edema (3+ pitting), Swelling (Bilat upper extremities ), Other (SCD's in place) Neurologic/Psychiatric: Alert, Oriented x3, Depressed Affect Skin: Normal Color, Warm/Dry Results Lab Laboratory Tests 12/09/21 08:08: Lactic Acid Level 1.64 12/09/21 21:40: Hemoglobin 9.7#L, Hematocrit 29L 12/10/21 05:00: Hemoglobin 9.1L, Hematocrit 27L, White Blood Count 17.0H, Red Blood Count 3.25L, Mean Corpuscular Volume 83, Mean Corpuscular Hemoglobin 28, Mean Corpuscular Hemoglobin Concent 34, Red Cell Distribution Width 17.1H, Platelet Count 103L, Mean Platelet Volume 10.8, Immature Granulocyte % (Auto) 2, Neutrophils (%) (Auto) 92H, Lymphocytes (%) (Auto) 4L, Monocytes (%) (Auto) 2, Eosinophils (%) (Auto) 0, Basophils (%) (Auto) 0, Neutrophils # (Auto) 15.7H, Lymphocytes # (Auto) 0.7L, Monocytes # (Auto) 0.3, Eosinophils # (Auto) 0.0, Basophils # (Auto) 0.0, Immature Granulocyte # (Auto) 0.3H, Percent Immature Platelet Fraction 4.9, Sodium Level 141, Potassium Level 3.0L, Chloride Level 110H, Carbon Dioxide Level 12L, Anion Gap 19H, Blood Urea Nitrogen 8, Creatinine 0.71, Estimat Glomerular Filtration Rate 96, BUN/Creatinine Ratio 11, Glucose Level 104, Calcium Level 7.4L, Corrected Calcium 8.8, Phosphorus Level 2.0L, Magnesium Level 1.7, Total Bilirubin 1.0, Aspartate Amino Transf (AST/SGOT) 26, Alanine Aminotransferase (ALT/SGPT) 15, Alkaline Phosphatase 98, Total Protein 4.0L, Albumin 2.3L Microbiology 12/08/21 MRSA Screen - Final, Complete MRSA not isolated 12/07/21 Gram Stain - Final, Resulted 12/07/21 Body Fluid Culture - Preliminary, Resulted No growth 12/03/21 C. difficile GDH Antigen & Toxins - Final, Complete 12/01/21 Blood Culture - Final, Complete No growth 12/01/21 Urine Culture - Final, Complete Citrobacter freundii complex Enterococcus faecalis Assessment/Plan Assessment/Plan Assessment/Plan s/p Laparoscopic Miley's procedure with end colostomy for diversion - post-op day 5 Septic Shock - Criteria but no source identified - Hypotensive requiring norepinephrine, phenylephrine, vasopressin - Leukocytosis, 17.0 today, 24.0 yesterday - Tachycardia, transient, no tachycardic when I visited this AM - Acute Respiratory failure, requiring High flow NC/BiPAP intermittently, currently on BiPAP - UTI Rectal mass with ulceration/perforation - 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 freundii complex Hypokalemia, resolved Patient's stoma appears to be healing appropriately, continue to monitor. Colostomy bag shows stool with small amounts of maroon blood, will continue to monitor. Patient is still requiring pressors to maintain blood pressure, manag ed by eICU team, continue to monitor. Hemoglobin is 9.1, from 7.0 yesterday, continue to monitor. 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 Patient currently on BiPAP 60%, had thoracentesis 12/07/21, continue to monitor. Clinical Quality Measures DVT/VTE Risk/Contraindication: Contraindications-Pharm: Other *list below* Other: gi bleed ENRIQUE DONNELLY DO 12/10/21 1641: Subjective Time Seen by a Provider: 10:47 Subjective/Events-last exam Pt seen and examined, still needing BiPap and pressors. Pain is the same. Review of Systems General: Fatigue, Malaise Cardiovascular: No: Chest Pain Gastrointestinal: Abdominal Pain; No: Nausea, Vomiting Objective Exam General Appearance: Chronically ill, Mild Distress, Thin Respiratory: Decreased Breath Sounds, Other (BiPAP) Cardiovascular: Regular Rate, Rhythm Gastrointestinal: tenderness, other (Colostomy pink and patent; stool mixed with small amounts of maroon blood in ostomy bag) Extremity: Pedal Edema (3+ pitting), Swelling (Bilat upper extremities ), Other (SCD's in place) Neurologic/Psychiatric: Depressed Affect Assessment/Plan Assessment/Plan Assessment/Plan s/p Laparoscopic Miley's procedure with end colostomy for diversion - post-op day 5 Septic Shock - Criteria but no source identified - Hypotensive requiring norepinephrine, phenylephrine, vasopressin - Leukocytosis, 17.0 today, 24.0 yesterday - Tachycardia, transient, no tachycardic when I visited this AM - Acute Respiratory failure, requiring High flow NC/BiPAP intermittently, currently on BiPAP - UTI Rectal mass with ulceration/perforation - 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 freundii complex Hypokalemia, resolved Patient's stoma appears to be healing appropriately, continue to monitor. Colostomy bag shows stool with small amounts of maroon blood, will continue to monitor. Patient is still requiring pressors to maintain blood pressure, managed by eICU team, continue to monitor. Hemoglobin is 9.1, from 7.0 yesterday, continue to monitor. 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 Patient currently on BiPAP 60%, had thoracentesis 12/07/21, continue to monitor. I am unsure why pt is having BP issues, I don't think it is Sepsis. I asked Cardiology about high ouput cardiac failure, they didn't think that was it. We are trying to rule out primary adrenal insufficiency. Supervisory-Addendum Brief Verification & Attestation Participated in pt care: history, MDM, physical Personally performed: exam, history, MDM, supervision of care Care discussed with: Medical Student Procedures: n/a Verification and Attestation of Medical Student E/M Service A medical student performed and documented this service. I then reviewed and verified all information documented by the medical student and made modifications to such information, when appropriate. I personally performed a physical exam, medical decision making and then discussed any differences betwee n the notes and made revisions as necessary to create one note. Enrique Donnelly , 12/10/21 , 16:41 LURDES ROONEY Dec 10, 2021 08:02 ENRIQUE DONNELLY DO Dec 10, 2021 16:41
[2021-12-10] MEDS: SODIUM BICARBONATE 8.4% VIAL 100 MEQ in 1/2 NS IV SOLUTION 1,000 ML IV SCH (08:34)
[2021-12-10] MEDS: morphine INJ 4 MG/ML 1 ML (VIAL/SYRINGE) IV PRN ×2 (08:57→16:06)
--- NOTE | 2021-12-10 10:09 | Cardiology Progress Note ---
Subjective Date Seen by Provider: Dec 10, 2021 Time Seen by Provider: 10:08 Subjective/Events-last exam Patient is laying down in bed, still on BiPAP. Still having shortness of breath. Review of Systems General: No Chills, No Night Sweats; Fatigue, Malaise; No Appetite, No Other HEENT: No Head Aches, No Visual Changes, No Eye Pain, No Ear Pain, No Dysphasia, No Sinus Congestion, No Post Nasal Drip, No Sore Throat, No Other Pulmonary: Dyspnea; No Cough, No Pleuritic Chest Pain, No Other Cardiovascular: No: Chest Pain, Palpitations, Orthopnea, Paroxysmal Noc. Dyspnea, Edema, Lt Headedness, Other Focused Exam Lactate Level 12/09/21 08:08: Lactic Acid Level 1.64 Objective-Cardiology Exam Last Set of Vital Signs Vital Signs 12/10/21 12/10/21 12/10/21 12/10/21 06:00 06:30 07:00 08:00 Temp 36.0 Pulse 102 Resp 21 B/P (MAP) 114/84 Pulse Ox 94 O2 Delivery NIV Bilevel O2 Flow Rate 60.00 FiO2 65 I&O Intake and Output 12/10/21 00:00 Intake Total 925 ml Output Total 2320 ml Balance -1395 ml Intake Oral 50 ml IV Total 850 ml Other 25 ml Output Urine Total 2300 ml Stool Total 20 ml General: Alert, Mild Distress HEENT: Atraumatic, PERRLA Neck: Supple, No JVD, No Thyromegaly Lungs: Other (decreased air movement) Heart: Regular Rate, Normal S1, Normal S2 Abdomen: Normal Bowel Sounds, Other (ttp, ostomy in place with dark nearly black soft stool) Extremities: Other (3+ pitting edema both legs, 2+ pitting edema of arms) Skin: No Rashes, No Breakdown, No Significant Lesion Neuro: Normal Speech Psych/Mental Status: Other (appropriately tearful) Results Lab Laboratory Tests 12/09/21 21:40 12/10/21 05:00 A/P-Cardiology Admission Diagnosis Sepsis Septic shock Tachycardia UTI Assessment/Plan Acute on chronic respiratory failure, currently maintained on BiPAP Patient had COVID-19 infection about 5 weeks ago, her Covid test reported as detected. Discussed the management plan with Dr. Adams and patient does not require isolation CT scan showed scarring and fibrosis secondary to Covid and extensive pleural effusion Status post thoracentesis done by Dr. Saunders. Sepsis, receiving IV fluids, maintained on pressors. Continue to monitor blood pressure Recurrent paroxysmal supraventricular tachycardia, had multiple episodes. Had few episodes of sinus tachycardia secondary to respiratory failure and hypoxemia. Currently heart rate is better controlled. Hypotension, secondary to sepsis. Pressure is better today. Continue to monitor Perirectal mass, underwent diverging colectomy with colostomy. Pathology suggestive of squamous cell carcinoma Managed by primary care physician UTI, receiving antibiotics. History of anxiety, depression, managed by primary care physician Failure to thrive. SILVIA OH MD Dec 10, 2021 10:09
[2021-12-10 10:27] VITALS: BP 101/72
--- NOTE | 2021-12-10 11:12 | Tele-ICU Progress Note ---
Subjective Date Seen by a Provider: Dec 10, 2021 Time Seen by a Provider: 11:11 Subjective/Events-last exam (Tele-ICU Physician , Progress Note ) Available chart/ vitals / labs / Images reviewed Video assessment done using teleICU camera, rest of exam as per RN Discussed with RN , EXAM PER RN Events overnight : on bipap 08/04 70 % rr 18 tv 800 Afebrile FiO2 - 4 l I/O = + Drips: Pressors: turner 125 / vaso Consultants: sx Hospital course: (12/01) 61 y/o female admitted for failure to thrive, +UTI, perineal abscess. , GIB, liver mass (12/02) transferred to ICU for hypotension 12/05- s/p -s/p Lap Miley's with end colostomy for diversion 12/07 S/P LEFT thoracentesis, 12/07/21, with 700ml 12/09= 1 uPRBC , bicarb gtt 12/10 - Bipap 08/04 65% A/P Shock , septic - cont turner / vaso - s/p transfusion 1 unit PRBC 12/09 - correct acidosis with bicarn gtt Acute resp failure - multifactoerial - noncard pulm edema , effusions , compensation for acidosis, PNA = cont NIPPVBipap 08/04 90% MEt acidosis - add bicarb gtt 12/09 - to cont - abd exam /eval as per sx -Rectal mass with perforation and abscess - pathology + CA -s/p Lap Miley's with end colostomy for diversion. 12/05/21 - cont abx - levofloxacin - as per sx UTI - cont abx Bilateral pleural effusions - S/P LEFT thoracentesis, 12/07/21, with 700ml -- transudative - no eaccumulation Anemia -Rectal Bleed secondary to above - Hb trending down - transfused prbc 12/09 given shock and 2 pressors invasive moderately differentiated squamous cell carcinoma - resul;ts being discussed with patient by PCP disphagia - NPO Lines : R IJ 12/04 (Central Line Necessity Reviewed) Rodriguez: + OG: Nutrition: very poor intake Analgesia: Anxiety/ delirium VTE Prophylaxis: scd Stress Ulcer Prophylaxis: PPI Plans in collaboration with bedside consultants and IM MDs. Discussed with RN to reach out if any questions or concerns A total of 31 minutes of critical care time was devoted to this patient today, required to treat and/or prevent further deterioration of critical care condition ( as above) . Sepsis Event Evaluation Height, Weight, BMI Height: '" Weight: lbs. oz. kg; 15.39 BMI Method: Focused Exam Lactate Level 12/09/21 08:08: Lactic Acid Level 1.64 Exam Exam Patient acknowledged, consented, and participated in this virtual visit which was conducted using real time audio/video Vital Signs Date Time Temp Pulse Resp B/P (MAP) Pulse Ox O2 Delivery O2 Flow Rate FiO2 12/10/21 10:52 36.53971 84 24 101/72 94 NIV/Bilevel 65.00 12/10/21 10:27 84 24 94 65.00 12/10/21 08:00 36.0 12/10/21 08:00 94 NIV Bilevel 65 12/10/21 07:00 102 12/10/21 06:30 86 21 95 60.00 12/10/21 06:00 86 19 114/84 95 NIV Bilevel 45.00 12/10/21 05:45 84 18 114/89 95 12/10/21 05:30 83 19 108/83 94 12/10/21 05:16 37.60418 85 17 95/76 92 NIV/Bilevel 45.00 12/10/21 05:15 85 17 95/76 90 12/10/21 05:00 86 20 78/60 90 NIV Bilevel 45.00 12/10/21 04:45 87 17 112/81 90 12/10/21 04:30 89 17 106/86 90 12/10/21 04:15 89 21 106/78 89 12/10/21 04:00 100 NIV Bilevel 60 12/10/21 04:00 97 24 89/71 95 NIV Bilevel 45.00 12/10/21 03:45 95 19 118/80 95 12/10/21 03:43 94 112/80 12/10/21 03:30 97 19 112/80 95 12/10/21 03:15 101 19 114/85 95 12/10/21 03:00 89 26 111/77 96 NIV Bilevel 45.00 12/10/21 02:53 82 19 95 45.00 12/10/21 02:45 81 17 119/78 93 12/10/21 02:30 81 19 109/82 94 12/10/21 02:15 81 18 118/81 94 12/10/21 02:00 85 22 118/79 95 NIV Bilevel 45.00 12/10/21 01:45 86 21 118/82 95 12/10/21 01:30 84 18 123/81 95 12/10/21 01:15 84 15 129/83 95 12/10/21 01:00 85 12/10/21 01:00 85 17 118/82 95 NIV Bilevel 45.00 12/10/21 00:45 85 19 116/84 95 12/10/21 00:30 86 18 125/91 95 12/10/21 00:15 87 16 126/85 95 12/10/21 00:00 88 18 124/88 95 NIV Bilevel 45.00 12/10/21 00:00 100 NIV Bilevel 60 12/09/21 23:45 90 18 121/86 95 12/09/21 23:33 37.74628 95 18 127/81 95 NIV/Bilevel 45.00 12/09/21 23:30 95 18 83/59 96 12/09/21 23:15 98 18 127/81 95 12/09/21 23:00 96 18 121/83 96 NIV Bilevel 45.00 12/09/21 22:47 84 20 96 45.00 12/09/21 22:47 84 22 85/63 96 12/09/21 22:45 82 20 77/57 97 12/09/21 22:30 81 19 108/74 96 12/09/21 22:15 81 21 125/98 95 NIV Bilevel 45.00 12/09/21 22:00 84 30 111/75 85 High Flow N/C 12.00 12/09/21 21:45 86 28 97/65 92 12/09/21 21:30 83 22 129/82 97 High Flow N/C 12.00 12/09/21 21:15 80 21 142/89 95 12/09/21 21:00 80 19 139/90 96 NIV Bilevel 45.00 12/09/21 20:45 82 23 135/95 96 12/09/21 20:30 85 19 129/93 96 12/09/21 20:15 82 19 119/93 96 12/09/21 20:00 36.6 12/09/21 20:00 100 NIV Bilevel 60 12/09/21 20:00 100 NIV Bilevel 60 12/09/21 20:00 84 19 134/87 96 NIV Bilevel 45.00 12/09/21 19:45 83 27 133/84 96 12/09/21 19:30 85 17 127/81 95 12/09/21 19:15 87 15 134/83 97 12/09/21 19:00 86 12/09/21 19:00 86 16 137/86 97 NIV Bilevel 45.00 12/09/21 19:00 76 12/09/21 18:46 76 21 96 45.00 12/09/21 18:00 76 16 143/87 99 NIV Bilevel 60.00 12/09/21 17:00 78 19 133/79 100 NIV Bilevel 60.00 12/09/21 16:51 35.95814 84 18 129/82 100 60.00 12/09/21 16:43 84 129/82 12/09/21 16:17 35.2 84 18 118/78 NIV Bilevel 60 12/09/21 16:03 35.8 85 103/77 100 NIV Bilevel 60 12/09/21 16:00 100 NIV Bilevel 60 12/09/21 16:00 86 18 81/57 100 NIV Bilevel 60.00 12/09/21 16:00 36.5 12/09/21 15:00 92 21 119/76 100 NIV Bilevel 60.00 12/09/21 14:34 75 23 100 60.00 12/09/21 14:00 84 21 103/72 100 NIV Bilevel 60.00 12/09/21 13:02 74 16 140/81 99 NIV Bilevel 60.00 12/09/21 12:48 77 12/09/21 12:00 93 17 117/74 100 NIV Bilevel 60.00 12/09/21 12:00 100 NIV Bilevel 60 l I & O 12/10/21 06:59 Intake Total 400 ml Output Total 1125 ml Balance -725 ml Height & Weight Height: '" Weight: lbs. oz. kg; 15.39 BMI Method: General Appearance: Chronically ill, Mild Distress, Thin Neck: Supple Respiratory: Decreased Breath Sounds, Other (BiPAP) Cardiovascular: Regular Rate, Rhythm, Normal Peripheral Pulses Capillary Refill: Less Than 3 Seconds Gastrointestinal: tenderness, other (Colostomy pink and patent; stool mixed with small amounts of maroon blood in ostomy bag) Extremity: Pedal Edema (3+ pitting), Swelling (Bilat upper extremities ), Other (SCD's in place) Neurologic/Psychiatric: Alert, Oriented x3, Depressed Affect Skin: Normal Color, Warm/Dry Results Lab Laboratory Tests 12/09/21 04:43 12/09/21 21:40 12/10/21 05:00 Assessment/Plan Assessment/Plan ` SHAGGY CHANG MD Dec 10, 2021 11:12
--- NOTE | 2021-12-10 13:27 | Oncology Consultation ---
Visit Information Visit Information Date of Admission Dec 01, 2021 at 17:49 Attending Physician Lynette Mahoney MD Admitting Physician [facility] Chief Complaint Called to see patient for newly diagnosed rectal squamous cell carcinoma. Interval History This is a very complex case. 61 year old white female, had hip surgery 09/2021 and incidental finding of positive Covid test at the screening of the surgery. She was noticed to have rectal mass and had surgical resection and colostomy 12/05/[address] Donnelly. Post-Op note: rectal mass with perforation and abscess, pending pathology. Pt has no pulmonary symptoms before the surgery. She is now on Bi-pap with high O2 flow and also requires pressors to support blood pressure and urine out put. Leucocytosis, anemia and dropping Plt. No fever. Unremarkable Cr and LFTs. CTA 12/01/2021 showed NO pulmonary embolic, but bilateral pleural effusion, s/p thoracentesis, fluid transudate, cytology pending. I consulted the patient on: 12/10/21 13:18 Time Seen by Provider: 13:19 Review of Systems Constitutional: see HPI Health Status Allergies Coded Allergies: No Known Drug Allergies (Unverified , 04/16/20) Home Medications Cyanocobalamin (Vitamin B-12) (Vitamin B-12) 1,000 Mcg Capsule, 1,000 MCG PO DAILY, (Reported) Hydroxyzine HCl (Hydroxyzine HCl) 25 Mg Tablet, 25 MG PO QID PRN for ANXIETY, (Reported) Sertraline HCl (Sertraline HCl) 100 Mg Tablet, 200 MG PO DAILY, (Reported) TAKES 2 (100MG) TABS Trazodone HCl (Trazodone HCl) 150 Mg Tablet, 150 MG PO HS PRN for SLEEP, (Reported) KUW-Wahers-Xjqegq Hx Patient Social History Marrital Status: single Employed/Student: unemployed Smoking Status: Current Everyday Smoker Type Used: Cigarettes Alcohol Use?: No Have you traveled recently?: No Immunizations Up To Date Date of Influenza Vaccine: Jun 30, 2021 Family Medical History Significant Family History: Hypertension (mother) Family Medical Hx Noncontributory Physical Exam Vital Signs Vital Signs - First Documented 12/04/21 12/04/21 12/04/21 12/06/21 00:00 03:16 15:07 16:54 Temp 36.4 Pulse 71 Resp 17 B/P (MAP) 107/66 Pulse Ox 98 O2 Delivery Room Air O2 Flow Rate 0.00 FiO2 3 Capillary Refill : Less Than 3 Seconds Height, Weight, BMI Height: '" Weight: lbs. oz. kg; 15.39 BMI Method: General Appearance: Other (On Bi-pap high O2 flow. ) HEENT: PERRL/EOMI Gastrointestinal: Soft, Tenderness (colostomy bag with small amount stool. No bleeding. ) Neurologic/Psychiatric: Alert, Oriented x3 Data Review Labs Laboratory Tests 12/09/21 21:40 12/10/21 05:00 Laboratory Tests 12/07/21 23:50: Arterial Blood pH 7.36L, Arterial Blood Partial Pressure CO2 32L, Arterial Blood Partial Pressure O2 45L, Arterial Blood HCO3 18L, Arterial Blood Total CO2 18.5L , Arterial Blood Oxygen Saturation 80L, Arterial Blood Base Excess -6.8L 12/08/21 04:08: White Blood Count 27.7H, Red Blood Count 2.77L, Hemoglobin 7.7L, Hematocrit 24L, Red Cell Distribution Width 18.3H, Neutrophils (%) (Auto) 94H, Lymphocytes (%) (Auto) 3L, Neutrophils # (Auto) 25.9H, Lymphocytes # (Auto) 0.9L, Immature Granulocyte # (Auto) 0.4H, Carbon Dioxide Level 14L, Anion Gap 15H, Blood Urea Nitrogen 5L, Glucose Level 140H, Calcium Level 7.5L, Total Protein 3.8L, Albumin 2.3L 12/08/21 05:01: Arterial Blood pH 7.33*L, Arterial Blood Partial Pressure O2 27*L, Arterial Blood HCO3 18L, Arterial Blood Total CO2 19.3L, Arterial Blood Oxygen Saturation 44L, Arterial Blood Base Excess -6.9L 12/09/21 04:43: White Blood Count 24.0H, Red Blood Count 2.55L, Hemoglobin 7.0L, Hematocrit 22L, Red Cell Distribution Width 18.6H, Neutrophils (%) (Auto) 91H, Lymphocytes (%) (Auto) 6L, Neutrophils # (Auto) 21.8H, Immature Granulocyte # (Auto) 0.3H, Carbon Dioxide Level 12L, Anion Gap 18H, Blood Urea Nitrogen 6L, Glucose Level 108H, Calcium Level 7.6L, Total Protein 4.1L, Albumin 2.7L, Potassium Level 3.2L , Chloride Level 109H 12/09/21 08:08: 12/09/21 21:40: Hemoglobin 9.7#L, Hematocrit 29L 12/10/21 05:00: Hemoglobin 9.1L, Hematocrit 27L, White Blood Count 17.0H, Red Blood Count 3.25L, Red Cell Distribution Width 17.1H, Platelet Count 103L, Neutrophils (%) (Auto) 92H, Lymphocytes (%) (Auto) 4L, Neutrophils # (Auto) 15.7H, Lymphocytes # (Auto) 0.7L, Immature Granulocyte # (Auto) 0.3H, Potassium Level 3.0L, Chloride Level 110H, Carbon Dioxide Level 12L, Anion Gap 19H, Calcium Level 7.4L, Phosphorus Level 2.0L, Total Protein 4.0L, Albumin 2.3L 12/10/21 13:20: Laboratory Tests 12/09/21 21:40 12/10/21 05:00 Impression & Plan Impression & Plan IMP: 1. 61 year old female in ICU with acute respiratory failure on Bi-Pap/high flow O2. Hypotensive requires pressor support. 2. Rectal mass, pathology showed moderate differentiated squamous cell carcinoma which is very unlikely to cause her acute respiratory failure. 3. Chronic anemia, most likely due to blood loss, s/p RBC transfusion with proper response, Hb from 7 to 9 range. 4. Rectal mass with perforation and abscess, s/p surgery 12/05/2021. 5. Leucocytosis, anemia and acutely dropping Plt. 6. Positive Covid test 09/2021 but no symptoms Rec: 1. This is a very complex case. With the leucytosis and hypotensive/sepsis picture, I feel we need to repeat CT scan of chest, abd/pelvis looking for the abscess. If so, she needs to be on double antibiotics, rather than single agent Levaquin. Also if the infection was even sensitive to Levaquin since she has been on it for several days now. Because of her low urine out-put, I also discussed her case with radiologist Dr Hoyos if we should use the contrast for the CT scan. He suggested to do one without contrast first, if we see any suspicious, we can do another one with the contrast. 2. I suggest to have a high dose solumedrol 500mg IV to see she will respond, e.g. her BP better and her Plt. If no response at all, then we can stop it. 3. In terms of her rectal cancer, we need to wait for her other medical conditions stable and then finish her cancer staging as out-patient. Then we can discuss the treatment options. Thank you for the consultation. Will f/u with you. YADIRA TATE MD Dec 10, 2021 13:27
[2021-12-10] MEDS ORDERED: methylPREDNISolone 125 MG (Solu-MEDROL) VIAL IVP NR (14:00)
[2021-12-10 15:27] VITALS: BP 101/72
[2021-12-10] MEDS ORDERED: methylPREDNISolone SOD SUCC 500 MG in NS (IVPB) 50 ML IV NR (15:30)
--- NOTE | 2021-12-10 16:23 | Physical Therapy Evaluation ---
PT Evaluation-General Medical Diagnosis Admission Date Dec 01, 2021 at 17:49 Medical Diagnosis: failure to thrive, hypokalemia, perineal abscess, sepsis Onset Date: Dec 01, 2021 Therapy Diagnosis Therapy Diagnosis: generalized weakness/debility Precautions Precautions/Isolations: Fall Prevention, Standard Precautions Weight Bear Status Right Lower Extremity: Right Full Weight Bearing Left Lower Extremity: Left Full Weight Bearing Referral Physician: Dr. Donnelly Reason for Referral: Evaluation/Treatment, Strengthening Medical History Pertinent Medical History: COPD, Smoking Reviewed History: Yes Social History Home: Single Level Current Living Status: Alone Prior Prior Level of Function SCALE: Activities may be completed with or without assistive devices. 5-Kprlsgxnxl-mxjvgws completes the activity by him/herself with no assistance from a helper. 5-Set-up or Clean-up Assistance-helper sets up or cleans up; patient completes activity. [place] assists only prior to or following the activity. 4-Supervision or Touching Assistance-helper provides verbal cues and/or touching/steadying and/or contact guard assistance as patient completes activity. Assistance may be provided throughout the activity or intermittently. 3-Partial/Moderate Assistance-helper does LESS THAN HALF the effort. [place] lifts, holds or supports trunk or limbs, but provides less than half the effort. 2-Substantial/Maximal Assistance-helper does MORE THAN HALF the effort. [place] lifts or holds trunk or limbs and provides more than half the effort. 6-Qedghwois-oqwcxb does ALL the effort. Patient does none of the effort to comp lete the activity. Or, the assistance of 2 or more helpers is required for the patient to complete the activity. If activity was not attempted, code reason: 7-Patient Refused. 9-Not Applicable-not attempted and the patient did not perform the activity before the current illness, exacerbation or injury. 10-Not Attempted due to Environmental Limitations-(lack of equipment, weather restraints, etc.). 88-Not Attempted due to Medical Conditions or Safety Concerns. Indoor Mobility (Ambulation): Independent Prior Devices Use: Walker PT Evaluation-Current Subjective Patient on Bi-Pap upon PT arrival. Nursing gives approval for evaluation however reports patient desats quickly with mobility. Objective Patient Orientation: Person ROM/Strength ROM Lower Extremities WFLs PROM Strength Lower Extremities Patient demonstrates 2/5 strength in bilateral LEs in all planes, however appears to have difficulty understanding commands at this time. Integumentary/Posture Bladder Incontinence: Rodriguez Cath Sensory Vision: Functional Hearing: Functional Transfers N/A due to patient becoming increasingly irritated. Gait Does the Patient Walk?: No and Walking Goal IS indicated Mode of Locomotion: Walk Anticipated Mode of Locomotion: Walk Treatment Patient performed PROM/AAROM to bilateral LEs in all available planes x 10 each Assessment/Needs Patient tolerated treatment treatment poorly. Patient only able to tolerate LE ROM and this activity increased her anxiety, agitation and respiratory rate. Patient was unable to relax and focus on exercises and demonstrates difficulty following commands. Bed mobility and transfers forgone this evaluation due to patients current presentation however will be attempted next visit if patient able to safely tolerate. Patient in bed post treatment with all needs met, nursing notified, call light in reach. Rehab Potential: Fair PT Short Term Goals Short Term Goals Time Frame: Dec 19, 2021 Roll Left & Right: 3 Sit to lyin Lying to sitting on side of be: 3 Sit to stand: 3 Chair/fpw-pz-zeufp transfer: 2 Toilet transfer: 2 PT Roller Operator Goals Roller Operator Goals PT [facility] Goals Time Frame: Dec 20, 2021 Roll Left & Right (QC): 6 Sit to Lying (QC): 6 Lying-Sitting on Side/Bed(QC): 6 Sit to Stand (QC): 6 Chair/Ltw-pj-Zmine Xfer(QC): 6 Toilet Transfer (QC): 6 Walk 10 feet (QC): 6 Walk 50ft with 2 Turns (QC): 6 Walk 150 ft (QC): 6 PT Plan Problem List Problem List: Activity Tolerance, Functional Strength, Safety, Balance, Gait, Transfer, Bed Mobility, ROM Treatment/Plan Treatment Plan: Continue Plan of Care Treatment Plan: Bed Mobility, Education, Functional Activity Apple, Functional Strength, Gait, Safety, Therapeutic Exercise, Transfers Treatment Duration: Dec 20, 2021 Frequency: 6 times per week Estimated Hrs Per Day: .25 hour per day Safety Risks/Education Patient Education: Safety Issues Teaching Recipient: Patient Teaching Methods: Discussion Response to Teaching: Reinforcement Needed Discharge Recommendations Target Placement Post acute placement recommended Time/GCodes Time In: 1540 Time Out: 1600 Total Billed Treatment Time: 20 Total Billed Treatment Visit, TEJINDER Hayden PT Dec 10, 2021 16:23
--- NOTE | 2021-12-10 17:50 | Progress Note ---
Subjective Subjective/Events-last exam Seen at 929. Afebrile, still requring bipap and 2 pressors. Isn't able to speak loudly enough to be clear over bipap and desaturated quickly when on nasal canula per nursing. Focused Exam Lactate Level 12/09/21 08:08: Lactic Acid Level 1.64 Objective Exam Last Set of Vital Signs Vital Signs Date Time Temp Pulse Resp B/P (MAP) Pulse Ox O2 Delivery O2 Flow Rate FiO2 12/10/21 17:00 98 26 102/82 94 NIV Bilevel 45.00 12/10/21 16:18 35.03716 12/10/21 16:00 65 Capillary Refill : Less Than 3 Seconds I&O Intake and Output 12/10/21 00:00 Intake Total 925 ml Output Total 2320 ml Balance -1395 ml Intake Oral 50 ml IV Total 850 ml Other 25 ml Output Urine Total 2300 ml Stool Total 20 ml General: Alert, Mild Distress Lungs: Clear to Auscultation Heart: Regular Rate Abdomen: Normal Bowel Sounds, Other (ostomy bag with dark maroon stool, mild diffuse ttp, nondistended) Extremities: Other (2+ pitting edema both legs) Psych/Mental Status: Mental Status NL Results/Procedures Lab Laboratory Tests 12/09/21 21:40: Hemoglobin 9.7#L, Hematocrit 29L 12/10/21 05:00: Hemoglobin 9.1L, Hematocrit 27L, White Blood Count 17.0H, Red Blood Count 3.25L, Mean Corpuscular Volume 83, Mean Corpuscular Hemoglobin 28, Mean Corpuscular Hemoglobin Concent 34, Red Cell Distribution Width 17.1H, Platelet Count 103L, Mean Platelet Volume 10.8, Immature Granulocyte % (Auto) 2, Neutrophils (%) (Auto) 92H, Lymphocytes (%) (Auto) 4L, Monocytes (%) (Auto) 2, Eosinophils (%) ( Auto) 0, Basophils (%) (Auto) 0, Neutrophils # (Auto) 15.7H, Lymphocytes # (Auto) 0.7L, Monocytes # (Auto) 0.3, Eosinophils # (Auto) 0.0, Basophils # (Auto) 0.0, Immature Granulocyte # (Auto) 0.3H, Percent Immature Platelet Fraction 4.9, Sodium Level 141, Potassium Level 3.0L, Chloride Level 110H, Carbon Dioxide Level 12L, Anion Gap 19H, Blood Urea Nitrogen 8, Creatinine 0.71, Estimat Glomerular Filtration Rate 96, BUN/Creatinine Ratio 11, Glucose Level 104, Calcium Level 7.4L, Corrected Calcium 8.8, Phosphorus Level 2.0L, Magnesium Level 1.7, Total Bilirubin 1.0, Aspartate Amino Transf (AST/SGOT) 26, Alanine Aminotransferase (ALT/SGPT) 15, Alkaline Phosphatase 98, Total Protein 4.0L, Albumin 2.3L 12/10/21 13:20: Microbiology 12/08/21 MRSA Screen - Final, Complete MRSA not isolated 12/07/21 Gram Stain - Final, Complete 12/07/21 Body Fluid Culture - Final, Complete No growth 12/03/21 C. difficile GDH Antigen & Toxins - Final, Complete 12/01/21 Blood Culture - Final, Complete No growth 12/01/21 Urine Culture - Final, Complete Citrobacter freundii complex Enterococcus faecalis Radiology Date of Exam:12/01/21 CT ABDOMEN/PELVIS W PROCEDURE: CT abdomen and pelvis with contrast. TECHNIQUE: Multiple contiguous axial images were obtained through the abdomen and pelvis after administration of intravenous contrast. Auto Exposure Controls were utilized during the CT exam to meet ALARA standards for radiation dose reduction. All CT scans use one or more of the following dose optimizing techniques: automated exposure control, MA and/or KvP adjustment based on patient size and exam type or iterative reconstruction. INDICATION: Abscess, pain. COMPARISON: October 13, 2021. FINDINGS: Calcified granuloma within the right middle lobe. The lungs are otherwise clear. Large hiatal hernia. Hypodensity within the liver adjacent to the falciform ligament and gallbladder fossa is again identified. The liver is otherwise unremarkable. The spleen is unremarkable. The adrenal glands are unremarkable. The pancreas is unremarkable. The gallbladder is at the upper limits of normal in size without adjacent inflammatory stranding. Advanced vascular calcifications within the abdominal aorta and its branch vessels without aneurysmal dilatation of the abdominal aorta. Retroaortic left renal vein. Rodriguez catheter is present within the urinary bladder, though significant amount of gas and fluid remains within the urinary bladder. 2.8 x 2.0 cm irregular gas and fluid collection is identified within the perineum just to the left of midline with associated hyperenhancement. This is seen extending along the left aspect of the rectum. This appears relatively similar to the prior examination. Diffuse mural thickening of loops of the large and small bowel is identified, which appears to be a change from the prior examination. No evidence of bowel obstruction. No abnormal adnexal mass lesion. No new adenopathy. No significant free fluid or free air. New postsurgical changes are identified associated with the proximal right femur. No new acute osseous abnormality. IMPRESSION: Persistent perineal/left perirectal gas and fluid collection remains concerning for a perirectal/perineal abscess. Overall appearance is relatively similar to the prior examination. Neoplasm at this location not excluded. New mural thickening involving the large and small bowel, felt to relate to underlying enterocolitis. There is however no evidence of bowel obstruction. Gas and fluid within the urinary bladder though a Rodriguez catheter is present within the urinary bladder. Recommend clinical correlation for functionality of this Rodriguez catheter. Large hiatal hernia. Fatty infiltration of the liver. Additional findings as above, including interval postsurgical changes involving the proximal right femur. Dictated by: Dictated on workstation # [id number] Dict: 12/01/21 1728 Trans: 12/01/211758 [id number] [id number] Interpreted by: YARIEL CATALAN MD Electronically signed by: YARIEL CATALAN MD 12/01/21 1759 Assessment/Plan Assessment/Plan (1) Anemia Status: Chronic Assessment & Plan: Suspect combination of iron deficiency and chronic disease, had low iron. B12 was low normal at 192 in Fe, is on B12 at home, but anemia is normocytic. Known rectal bleeding, s/p upper and lower endoscopy, appreciate Surgery recommendations. 12/09- Hgb down to 7, transfusion per ICU. 12/10- Hgb 9.7 after transfusion, trending down slightly this am, continue to monitor closely. (2) Hypokalemia Status: Acute Assessment & Plan: Replace and monitor. (3) Urinary tract infection Status: Acute Assessment & Plan: Citrobacter freundii and enterococcus faecalis on culture, both sensitive to levofloxacin, continuing levofloxacin course beyond 5 days due to persistent hypotension and worsening leukocytosis. Qualifiers: Qualified Codes: N39.0 - Urinary tract infection, site not specified (4) Failure to thrive in adult Status: Chronic (5) Acute respiratory failure Status: Acute Assessment & Plan: 12/08- CTA chest 12/06/21 with bilateral pleural effusions and changes suspected to be related to history of COVID19 infection in September, s/p thoracentesis. Requiring up to 10 lpm high flow nasal cannula this am, appreciate Johnna ICU recommendations. Nursing reports unable to obtain adequate SpO2 measurements in spite of trials of forehead, ear, multiple fingers. ABG this morning suspected to be VBG. Consider arterial line. 12/09- Continues to worsen, requiring bipap, and unable to tolerate vapotherm even for eating or brief periods. Lasix given this morning per ICU. Repeat CXR. 12/10- repeat CXR yesterday with slight improvement, still requiring CPAP however. Appreciate Johnna ICU assistance. Qualifiers: Qualified Codes: J96.01 - Acute respiratory failure with hypoxia (6) Pleural effusion Status: Acute Assessment & Plan: s/p left thoracentesis on 12/07. Ratio of pleural fluid protein to serum protein 0.8/3.7 = 0.22, suggesting transudate; LDH levels not done, uncertain etiology consider hypoalbuminemia, COVID19 history, malignancy. Heart failure less like given echo on 12/05 with EF 60-65%, although did have elevated pulmonary artery pressure. Nucleated cell count less than 10,000/micoL making infection less likely cause. (7) Hypotension Status: Acute Assessment & Plan: Uncertain etiology- had bleeding on admit, but is not have active brisk bleeding that would explain severity of her hypotension, did not meet sepsis criteria on admit and LA normalized early on. am Cortisol 9.4 mcg /dL, not clearly consistent with adrenal insufficiency. Adrenals normal appearing on CT. Had tachycardia with norepinephrine, now on phenylephrine and vaspressin. (8) Mass of perirectal soft tissue Status: Acute Assessment & Plan: s/p diverting ostomy per Dr. Donnelly. Pathology with squamous cell carcinoma. (9) DVT prophylaxis Status: Acute Assessment & Plan: No pharmacologic due to GI bleeding and severe anemia. (10) High anion gap metabolic acidosis Status: Acute Assessment & Plan: Uncertain cause, lactic acid normal. Started on bicarb per ICU. (11) COVID-19 Status: Acute Assessment & Plan: History of symptomatic positive 10/13/21 when she was admitted with fracture. Asymptomatic initially on this admit, suspect prolonged positive rather than active infection. (12) Squamous cell carcinoma of rectum Status: Acute Assessment & Plan: Oncology to see today. (13) Goals of care, counseling/discussion Status: Acute Assessment & Plan: 12/09 Discussed current serious situation with patient again today and in light of new biopsy information, she reaffirms full code status at this time Clinical Quality Measures DVT/VTE Risk/Contraindication: Contraindications-Pharm: Other *list below* Other: gi bleed JOSE SANDERS MD Dec 10, 2021 17:49
[2021-12-10] MEDS ORDERED: CYANOCOBALAMIN INJ 1000 MCG/ML IM SCH (18:00)
[2021-12-10] MEDS: NOREPINEPHRINE 8 MG/250 ML 250 ML IV SCH (18:30)
[2021-12-10] MEDS ORDERED: ALBUMIN 25% 25 GM/100 ML 100 ML IV ONE (18:45)
[2021-12-10 18:53] VITALS: BP 96/74
[2021-12-10 21:41] VITALS: BP 103/74
[2021-12-11] MEDS ORDERED: LACTATED RINGERS 500 ML IV SCH (02:15)
[2021-12-11] MEDS ORDERED: LACTATED RINGERS 1,000 ML IV SCH (02:15)
[2021-12-11] MEDS: VASOPRESSIN INJECTION 20 UNIT in NS (IVPB) 100 ML IV SCH ×2 (02:18→13:45)
[2021-12-11] MEDS: PHENYLEPHRINE IV SCH ×4 (02:19→11:47)
[2021-12-11 02:56] VITALS: BP 114/81
[2021-12-11] MEDS: RT-ALBUTEROL/IPRATROPIUM 3 ML (DUONEB) VIAL INH SCH ×4 (02:56→14:57)
[2021-12-11] MEDS: morphine INJ 4 MG/ML 1 ML (VIAL/SYRINGE) IV PRN ×4 (03:24→17:29)
[2021-12-11 05:11] LABS: BASOPHILS % (AUTO) 0 % (0-10); EOSINOPHILS % (AUTO) 0 % (0-10); HEMATOCRIT 26 % (35-52); LYMPHOCYTES # (AUTO) 0.6 10^3/uL (1.0-4.0); LYMPHOCYTES % (AUTO) 4 % (12-44)
[2021-12-11] MEDS: DIAZEPAM INJ 10 MG/2 ML (VALIUM) SYR IVP PRN ×2 (05:11→11:46)
[2021-12-11 05:13] LABS: HEMOGLOBIN 8.4 g/dL (11.5-16.0); MEAN CORPUSCULAR HEMOGLOBIN 28 pg (25-34); MEAN CORPUSCULAR HGB CONC 33 g/dL (32-36); MEAN CORPUSCULAR VOLUME 85 fL (80-99); MONOCYTES # (AUTO) 0.2 10^3/uL (0.0-1.0); MONOCYTES % (AUTO) 2 % (0-12); NEUTROPHILS % (AUTO) 94 % (42-75); PLATELET COUNT 47 10^3/uL (130-400)
[2021-12-11 05:44] LABS: ALBUMIN 2.6 GM/DL (3.2-4.5)
[2021-12-11 05:45] LABS: POTASSIUM 4.2 MMOL/L (3.6-5.0)
[2021-12-11 05:46] LABS: CALCIUM 7.5 MG/DL (8.5-10.1)
[2021-12-11 05:47] LABS: TOTAL PROTEIN 4.3 GM/DL (6.4-8.2)
[2021-12-11 05:50] LABS: PHOSPHORUS 2.8 MG/DL (2.3-4.7)
[2021-12-11 05:51] LABS: CREATININE SERUM 1.3 MG/DL (0.60-1.30)
[2021-12-11] MEDS: MAGNESIUM 1 GM/100 ML IVPB 100 ML IV SCH (06:30)
[2021-12-11] MEDS: POTASSIUM CL 10MEQ/50ML IVPB 50 ML IV SCH (06:30)
[2021-12-11] MEDS: SODIUM BICARBONATE 8.4% VIAL 100 MEQ in 1/2 NS IV SOLUTION 1,000 ML IV SCH (06:30)
[2021-12-11 06:56] VITALS: BP 108/79
[2021-12-11 07:18] LABS: ABG OXYGEN SATURATION 92 % (94-100); ABG PCO2 29 MMHG (35-45); ABG PO2 62 MMHG (79-93); ABG TCO2 13.5 MMOL/L (21.0-31.0)
[2021-12-11 07:20] LABS: ALLENS TEST YES-POS; INSPIRED O2 75%; PATIENT TEMP 36.9; VENTILATOR NO
[2021-12-11 07:23] LABS: ABG PH 7.27 (7.37-7.43)
[2021-12-11] MEDS: NOREPINEPHRINE 8 MG/250 ML 250 ML IV SCH (08:03)
--- NOTE | 2021-12-11 08:13 | Cardiology Progress Note ---
Subjective Date Seen by Provider: Dec 11, 2021 Time Seen by Provider: 08:10 Subjective/Events-last exam Patient is lethargic, maintained on BiPAP Review of Systems General: Other (Lethargic, unable to provide review of system) Focused Exam Lactate Level 12/09/21 08:08: Lactic Acid Level 1.64 Objective-Cardiology Exam Last Set of Vital Signs Vital Signs 12/11/21 12/11/21 12/11/21 12/11/21 04:00 06:00 06:56 07:53 Temp 37.3 Pulse 89 Resp 19 B/P (MAP) 108/79 Pulse Ox 95 O2 Delivery NIV Bilevel O2 Flow Rate 75.00 FiO2 80 I&O Intake and Output 12/11/21 00:00 Intake Total 700 ml Output Total 850 ml Balance -150 ml IV Total 700 ml Output Urine Total 850 ml General: Alert, Moderate Distress, Other (Lethargic) HEENT: Atraumatic, PERRLA Neck: Supple, No JVD, No Thyromegaly Lungs: Other (Bilateral rhonchi) Heart: Regular Rate Abdomen: Normal Bowel Sounds, Other (ostomy bag with dark maroon stool, mild diffuse ttp, nondistended) Extremities: Other (2+ pitting edema both legs) Skin: No Rashes, No Breakdown, No Significant Lesion Neuro: Normal Speech Psych/Mental Status: Mental Status NL Results Lab Laboratory Tests 12/11/21 05:05 A/P-Cardiology Admission Diagnosis Sepsis Septic shock Tachycardia UTI Assessment/Plan Acute on chronic respiratory failure, currently maintained on BiPAP Patient had COVID-19 infection about 5 weeks ago, her Covid test reported as detected. Discussed the management plan with Dr. Adams and patient does not require isolation CT scan showed scarring and fibrosis secondary to Covid and extensive pleural effusion Status post thoracentesis done by Dr. Saunders. Review of her ABG showed worsening respiratory acidosis, consider intubation, managed by eICU and medical team Combination of metabolic and respiratory acidosis, severe hypotension, sepsis Maintained on pressors and unable to be weaned off Receiving IV bicarb drip, may benefit from mechanical ventilation Recurrent paroxysmal supraventricular tachycardia, had multiple episodes. Had few episodes of sinus tachycardia secondary to respiratory failure and hypoxemia. Currently heart rate is better controlled. Hypotensive shock, secondary to persistent metabolic acidosis and respiratory failure Maintained on pressors and bicarb drip Not showing any signs of improvement Perirectal mass, underwent diverging colectomy with colostomy. Pathology suggestive of squamous cell carcinoma Dr. Carlson was consulted Managed by primary care physician UTI, receiving antibiotics. History of anxiety, depression, managed by primary care physician Failure to thrive. Complex management with overall poor prognosis SILVIA OH MD Dec 11, 2021 08:13
[2021-12-11] MEDS ORDERED: NS IV 1000 ML 1,000 ML IV SCH (08:30)
[2021-12-11] MEDS: ALBUMIN 25% 25 GM/100 ML 100 ML IV SCH ×2 (08:47→10:09)
[2021-12-11] MEDS ORDERED: PANTOPRAZOLE 40 MG (PROTONIX) VIAL IV SCH (09:00)
--- NOTE | 2021-12-11 09:02 | Progress Note - Surgery ---
LURDES ROONEY 12/11/21 0902: Subjective Date Seen by a Provider: Dec 11, 2021 Time Seen by a Provider: 07:55 Subjective/Events-last exam Patient lying in bed sleeping upon entering the room. Was sleepy throughout my visit and fell asleep multiple times while I was talking to her. Currently on 75% BiPAP, up from yesterday. Blood pressure was 100's/80's while I was in the room. Patient is off of norepinephrine today. Patient's phenylephrine dose has also decreased since yesterday. Could be due to steroid dose she received yesterday. Patient's cortisol level was 25.9, which is above normal range. Patient's WBC is 16.0, down from 17.0 yesterday. Patient's son is supposed to be coming to the hospital today. Patient consented to us yesterday that she would like to see her son and let him be made aware of her current care. Will discuss current care and possible next steps with him. Ostomy is patent and pink. Colostomy bag contains stool and no visible blood. Review of Systems Pulmonary: Dyspnea Cardiovascular: No: Chest Pain, Palpitations Gastrointestinal: No: Nausea, Vomiting Focused Exam Lactate Level 12/09/21 08:08: Lactic Acid Level 1.64 Objective Exam Vital Signs Date Time Temp Pulse Resp B/P (MAP) Pulse Ox O2 Delivery O2 Flow Rate FiO2 12/11/21 08:00 98 19 104/86 94 NIV Bilevel 75.00 12/11/21 07:53 37.3 12/11/21 07:45 96 NIV Bilevel 75 12/11/21 07:00 93 19 115/87 98 NIV Bilevel 75.00 12/11/21 07:00 94 12/11/21 06:56 89 19 95 75.00 12/11/21 06:00 93 19 108/79 98 NIV Bilevel 75.00 12/11/21 05:39 NIV Bilevel 75.00 12/11/21 05:00 98 19 109/83 93 Nasal Cannula 45.00 12/11/21 04:00 36.5 12/11/21 04:00 95 17 104/73 95 Nasal Cannula 45.00 12/11/21 04:00 93 NIV Bilevel 80 12/11/21 03:45 80.00 12/11/21 03:30 75.00 12/11/21 03:00 99 14 108/78 90 Nasal Cannula 45.00 12/11/21 02:56 94 20 92 75.00 12/11/21 02:19 93 20 110/89 90 NIV/Bilevel 70.00 12/11/21 02:18 93 110/89 12/11/21 02:00 99 18 114/81 95 Nasal Cannula 45.00 12/11/21 01:00 96 17 112/81 92 Nasal Cannula 45.00 12/11/21 01:00 97 12/11/21 00:00 36.4 12/11/21 00:00 93 NIV Bilevel 65 12/11/21 00:00 97 14 112/81 91 Nasal Cannula 45.00 12/10/21 23:00 98 15 101/79 92 Nasal Cannula 45.00 12/10/21 22:00 104 17 104/77 91 Nasal Cannula 45.00 12/10/21 21:41 96 14 89 65.00 12/10/21 21:00 97 21 104/73 91 Nasal Cannula 45.00 12/10/21 20:00 93 NIV Bilevel 65 12/10/21 20:00 36.4 12/10/21 20:00 101 22 99/69 92 Nasal Cannula 45.00 12/10/21 19:00 103 12/10/21 19:00 98 22 99/67 92 Nasal Cannula 45.00 12/10/21 18:53 97 27 92 65.00 12/10/21 18:30 98 102/82 12/10/21 18:00 97 35 97/77 94 NIV Bilevel 45.00 12/10/21 17:00 98 26 102/82 94 NIV Bilevel 45.00 12/10/21 16:18 [id number] 101 30 104/75 95 NIV/Bilevel 65.00 12/10/21 16:00 106 31 104/75 95 NIV Bilevel 45.00 12/10/21 16:00 93 NIV Bilevel 65 12/10/21 15:27 95 35 95 65.00 12/10/21 15:23 36.6 12/10/21 15:00 92 22 96/65 95 NIV Bilevel 45.00 12/10/21 14:53 90 95/76 12/10/21 14:00 90 22 95/76 93 NIV Bilevel 45.00 12/10/21 13:00 90 12/10/21 13:00 89 21 102/70 94 NIV Bilevel 45.00 12/10/21 12:00 92 93/68 92 NIV Bilevel 45.00 12/10/21 12:00 93 NIV Bilevel 65 12/10/21 11:37 36.2 12/10/21 11:00 98 18 104/80 93 NIV Bilevel 45.00 12/10/21 10:52 [id number] 84 24 101/72 94 NIV/Bilevel 65.00 12/10/21 10:27 84 24 94 65.00 12/10/21 10:00 89 21 76/58 93 NIV Bilevel 45.00 12/10/21 09:00 90 20 103/75 95 NIV Bilevel 45.00 I & O 12/11/21 07:00 Intake Total 1200 ml Output Total 535 ml Balance 665 ml Capillary Refill : Less Than 3 Seconds General Appearance: Chronically ill, Mild Distress, Thin Neck: Supple Respiratory: Decreased Breath Sounds, Respiratory Distress (75% O2 BiPAP), Other (BiPAP) Cardiovascular: Regular Rate, Rhythm, Other (Unable to feel peripher pulses due to swelling) Gastrointestinal: No distended; other (Colostomy pink and patent; stool in colostomy bag with no visible blood) Extremity: Pedal Edema (3+ pitting), Swelling (Bilat upper extremities ), Other (SCD's in place) Neurologic/Psychiatric: Depressed Affect, Other (Groggy and sleeping while visiting) Skin: Normal Color, Warm/Dry Results Lab Laboratory Tests 12/10/21 13:20: Total Cortisol 25.9H 12/11/21 05:05: White Blood Count 16.0H, Red Blood Count 3.03L, Hemoglobin 8.4L, Hematocrit 26L, Mean Corpuscular Volume 85, Mean Corpuscular Hemoglobin 28, Mean Corpuscular He moglobin Concent 33, Red Cell Distribution Width 18.0H, Platelet Count 47L, Mean Platelet Volume , Immature Granulocyte % (Auto) 1, Neutrophils (%) (Auto) 94H, Lymphocytes (%) (Auto) 4L, Monocytes (%) (Auto) 2, Eosinophils (%) (Auto) 0, Basophils (%) (Auto) 0, Neutrophils # (Auto) 15.0H, Lymphocytes # (Auto) 0.6L, Monocytes # (Auto) 0.2, Eosinophils # (Auto) 0.0, Basophils # (Auto) 0.0, Immature Granulocyte # (Auto) 0.2H, Percent Immature Platelet Fraction 8.6H, Sodium Level 143, Potassium Level 4.2, Chloride Level 111H, Carbon Dioxide Level 11L, Anion Gap 21H, Blood Urea Nitrogen 13, Creatinine 1.30, Estimat Glomerular Filtration Rate 46, BUN/Creatinine Ratio 10, Glucose Level 122H, Calcium Level 7.5L, Corrected Calcium 8.6, Phosphorus Level 2.8, Magnesium Level 2.0, Total Bilirubin 2.0H, Aspartate Amino Transf (AST/SGOT) 65H, Alanine Aminotransferase (ALT/SGPT) 21, Alkaline Phosphatase 94, Total Protein 4.3L, Albumin 2.6L 12/11/21 07:15: Blood Gas Puncture Site R BRACH, Blood Gas Patient Temperature 36.9, Arterial Blood pH 7.27*L, Arterial Blood Partial Pressure CO2 29L, Arterial Blood Partial Pressure O2 62L, Arterial Blood HCO3 13*L, Arterial Blood Total CO2 13.5L, Art erial Blood Oxygen Saturation 92L, Arterial Blood Base Excess -13.0L, Brent Test YES-POS, Blood Gas Ventilator Setting NO, Blood Gas Inspired Oxygen 75% Microbiology 12/08/21 MRSA Screen - Final, Complete MRSA not isolated 12/07/21 Gram Stain - Final, Complete 12/07/21 Body Fluid Culture - Final, Complete No growth 12/03/21 C. difficile GDH Antigen & Toxins - Final, Complete 12/01/21 Blood Culture - Final, Complete No growth 12/01/21 Urine Culture - Final, Complete Citrobacter freundii complex Enterococcus faecalis Assessment/Plan Assessment/Plan Assessment/Plan s/p Laparoscopic Miley's procedure with end colostomy for diversion - post-op day 6 Septic Shock - Criteria but no source identified - Hypotensive requiring phenylephrine, vasopressin - Leukocytosis, 16.0 today, 17.0 yesterday - Tachycardia, transient, HR 98-100 while I was in the room today - Acute Respiratory failure, requiring High flow NC/BiPAP intermittently, currently on BiPAP 75% O2 - UTI Rectal mass with ulceration/perforation - 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 freundii complex Hypokalemia, resolved Patient's stoma appears to be healing appropriately, continue to monitor. Colostomy bag shows stool with small amounts of maroon blood, will continue to monitor. Patient is still requiring pressors to maintain blood pressure, managed by eICU team, continue to monitor. Hemoglobin is 8.4, from 9.1 yesterday, continue to monitor. 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 Patient currently on BiPAP 75%, had thoracentesis 12/07/21, continue to monitor. I am unsure why pt is having BP issues, I don't think it is Sepsis. I asked Cardiology about high ouput cardiac failure, they didn't think that was it. We are trying to rule out primary adrenal insufficiency. Patient's cortisol level was elevated on test. Patient did seem to respond positively to steroid dose yesterday though. May consider using scheduled steroid dosing and monitor clinical status and response. Clinical Quality Measures DVT/VTE Risk/Contraindication: Contraindications-Pharm: Other *list below* Other: gi bleed ESTELLA DONNELLY DO 12/11/21 1120: Subjective Time Seen by a Provider: 10:03 Subjective/Events-last exam Pt seen and examined, she is looking worse today. Still requiring pressors, although they took one off. Still requiring BiPap. Review of Systems Pulmonary: Dyspnea Cardiovascular: No: Chest Pain, Palpitations Gastrointestinal: No: Nausea, Vomiting Objective Exam General Appearance: Chronically ill, Mild Distress, Thin Respiratory: Accessory Muscle Use, Decreased Breath Sounds, Respiratory Distress (75% O2 BiPAP) Cardiovascular: Regular Rate, Rhythm, Other (Unable to feel peripher pulses due to swelling) Gastrointestinal: No distended; other (Colostomy pink and patent; stool in colostomy bag with no visible blood) Extremity: Pedal Edema (3+ pitting), Swelling (Bilat upper extremities ), Other (pt's fingers on right hand have turned black and she has mottling on her feet, hands and feet are still warm) Neurologic/Psychiatric: Depressed Affect, Other (Groggy and sleeping while visiting) Assessment/Plan Assessment/Plan Assessment/Plan s/p Laparoscopic Miley's procedure with end colostomy for diversion - post-op day 6 Septic Shock - Criteria but no source identified - Hypotensive requiring phenylephrine, vasopressin - Leukocytosis, 16.0 today, 17.0 yesterday - Tachycardia, transient, HR 98-100 while I was in the room today - Acute Respiratory failure, requiring High flow NC/BiPAP intermittently, currently on BiPAP 75% O2 - UTI Rectal mass with ulceration/perforation - 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 freundii complex Hypokalemia, resolved Patient's stoma appears to be healing appropriately, continue to monitor. Colostomy bag shows stool with small amounts of maroon blood, will continue to monitor. Patient is still requiring pressors to maintain blood pressure, managed by eICU team, continue to monitor. Hemoglobin is 8.4, from 9.1 yesterday, continue to monitor. 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 Patient currently on BiPAP 75%, had thoracentesis 12/07/21, continue to monitor. I am unsure why pt is having BP issues, I don't think it is Sepsis. I asked Cardiology about high ouput cardiac failure, they didn't think that was it. We are trying to rule out primary adrenal insufficiency. Patient's cortisol level was elevated on test. Patient did seem to respond positively to steroid dose yesterday though. May consider using scheduled steroid dosing and monitor clinical status and response. Pt is getting worse and I will need to talk to pt and son, because we have been unable to figure out what is going on with her. Supervisory-Addendum Brief Verification & Attestation Participated in pt care: history, MDM, physical Personally performed: exam, history, MDM, supervision of care Care discussed with: Medical Student Procedures: n/a Verification and Attestation of Medical Student E/M Service A medical student performed and documented this service. I then reviewed and verified all information documented by the medical student and made modifications to such information, when appropriate. I personally performed a physical exam, medical decision making and then discussed any differences between the notes and made revisions as necessary to create one note. Estella Donnelly , 12/11/21 , 11:20 LURDES ROONEY Dec 11, 2021 09:02 ESTELLA DONNELLY DO Dec 11, 2021 11:20
--- NOTE | 2021-12-11 09:02 | Tele-ICU Progress Note ---
Subjective Date Seen by a Provider: Dec 11, 2021 Time Seen by a Provider: 09:02 Subjective/Events-last exam Patient underwent laparoscopic Finnegan's procedure with end colostomy for diversion due to rectal mass with perforation and associated abscess. The biopsy of the rectal mass revealed squamous cell carcinoma. Currently receiving antibiotic therapy and on BiPAP machine for respiratory insufficiency. Unable to answer any questions. I have made a video visit and discussed with the CUTTING DEPARTMENT SUPERVISOR.Patient today receiving bicarbonate drip as well as Magdaleno-Synephrine and vasopressin. Levophed is off. Right hand fingers reportedly looking black and toes are also black per RN. Blood gases revealed metabolic acidosis. Review of Systems ROS PER RN Sepsis Event Evaluation Height, Weight, BMI Height: '" Weight: lbs. oz. kg; 15.39 BMI Method: Focused Exam Lactate Level 12/09/21 08:08: Lactic Acid Level 1.64 Exam Exam Patient acknowledged, consented, and participated in this virtual visit which was conducted using real time audio/video Vital Signs Date Time Temp Pulse Resp B/P (MAP) Pulse Ox O2 Delivery O2 Flow Rate FiO2 12/11/21 08:00 98 19 104/86 94 NIV Bilevel 75.00 12/11/21 07:53 37.3 12/11/21 07:45 96 NIV Bilevel 75 12/11/21 07:00 93 19 115/87 98 NIV Bilevel 75.00 12/11/21 07:00 94 12/11/21 06:56 89 19 95 75.00 12/11/21 06:00 93 19 108/79 98 NIV Bilevel 75.00 12/11/21 05:39 NIV Bilevel 75.00 12/11/21 05:00 98 19 109/83 93 Nasal Cannula 45.00 12/11/21 04:00 36.5 12/11/21 04:00 95 17 104/73 95 Nasal Cannula 45.00 12/11/21 04:00 93 NIV Bilevel 80 12/11/21 03:45 80.00 12/11/21 03:30 75.00 12/11/21 03:00 99 14 108/78 90 Nasal Cannula 45.00 12/11/21 02:56 94 20 92 75.00 12/11/21 02:19 93 20 110/89 90 NIV/Bilevel 70.00 12/11/21 02:18 93 110/89 12/11/21 02:00 99 18 114/81 95 Nasal Cannula 45.00 12/11/21 01:00 96 17 112/81 92 Nasal Cannula 45.00 12/11/21 01:00 97 12/11/21 00:00 36.4 12/11/21 00:00 93 NIV Bilevel 65 12/11/21 00:00 97 14 112/81 91 Nasal Cannula 45.00 12/10/21 23:00 98 15 101/79 92 Nasal Cannula 45.00 12/10/21 22:00 104 17 104/77 91 Nasal Cannula 45.00 12/10/21 21:41 96 14 89 65.00 12/10/21 21:00 97 21 104/73 91 Nasal Cannula 45.00 12/10/21 20:00 93 NIV Bilevel 65 12/10/21 20:00 36.4 12/10/21 20:00 101 22 99/69 92 Nasal Cannula 45.00 12/10/21 19:00 103 12/10/21 19:00 98 22 99/67 92 Nasal Cannula 45.00 12/10/21 18:53 97 27 92 65.00 12/10/21 18:30 98 102/82 12/10/21 18:00 97 35 97/77 94 NIV Bilevel 45.00 12/10/21 17:00 98 26 102/82 94 NIV Bilevel 45.00 12/10/21 16:18 35.34365 101 30 104/75 95 NIV/Bilevel 65.00 12/10/21 16:00 106 31 104/75 95 NIV Bilevel 45.00 12/10/21 16:00 93 NIV Bilevel 65 12/10/21 15:27 95 35 95 65.00 12/10/21 15:23 36.6 12/10/21 15:00 92 22 96/65 95 NIV Bilevel 45.00 12/10/21 14:53 90 95/76 12/10/21 14:00 90 22 95/76 93 NIV Bilevel 45.00 12/10/21 13:00 90 12/10/21 13:00 89 21 102/70 94 NIV Bilevel 45.00 12/10/21 12:00 92 93/68 92 NIV Bilevel 45.00 12/10/21 12:00 93 NIV Bilevel 65 12/10/21 11:37 36.2 12/10/21 11:00 98 18 104/80 93 NIV Bilevel 45.00 12/10/21 10:52 36.33441 84 24 101/72 94 NIV/Bilevel 65.00 12/10/21 10:27 84 24 94 65.00 12/10/21 10:00 89 21 76/58 93 NIV Bilevel 45.00 I & O 12/11/21 07:00 Intake Total 1200 ml Output Total 535 ml Balance 665 ml Height & Weight Height: '" Weight: lbs. oz. kg; 15.39 BMI Method: General Appearance: Chronically ill, Mild Distress, Thin HEENT: PERRL/EOMI Neck: Supple Respiratory: Decreased Breath Sounds, Other (BiPAP) Cardiovascular: Regular Rate, Rhythm Capillary Refill: Less Than 3 Seconds Gastrointestinal: tenderness, other (Colostomy pink and patent; stool mixed with small amounts of maroon blood in ostomy bag) Extremity: Pedal Edema (3+ pitting), Swelling (Bilat upper extremities ), Other (SCD's in place) Neurologic/Psychiatric: Depressed Affect Skin: Normal Color, Warm/Dry Other comments PE PER RN Results Lab Laboratory Tests 12/09/21 21:40 12/10/21 05:00 12/11/21 05:05 Assessment/Plan Assessment/Plan 1. Rectal mass with perforation and abscess formation. Status post diversion colostomy. 2. Possible septic shock 3. Acute metabolic acidosis secondary to sepsis and hypovolemia 4. Ischemic fingers most likely due to vasopressors in the presence of volume depletion. 5. Rectal carcinoma. 6. Acute hypoxic respiratory failure Recommendations 1. Will give IV sodium bicarbonate 100 mEq IV push. We will continue sodium bicarbonate drip 2. We will give additional fluid bolus with normal saline 3. We will give IV albumin. 4. We will add meropenem to the Levaquin to broaden the coverage. 5. We will continue to monitor electrolytes, BUN/creatinine and urine output 6. DVT prophylaxis and ulcer prophylaxis. 7. Given the above abnormalities her prognosis is poor. 8. General surgery, hematology oncology on the case in addition to primary team. Critical Care: Critically Ill Patient Time spent with patient (mins): 35 AGNES GRANDA MD Dec 11, 2021 09:02
[2021-12-11] MEDS ORDERED: SODIUM BICARB 8.4% 50 MEQ/50 ML VIAL IV NR (09:30)
[2021-12-11] MEDS: MEROPENEM 500 MG in NS (IVPB) 100 ML IV SCH ×2 (09:37→15:09)
[2021-12-11 09:48] VITALS: BP 97/72
--- NOTE | 2021-12-11 10:05 | Oncology Progress Note ---
Subjective Date Seen by a Provider: Dec 11, 2021 Time Seen by a Provider: 09:58 Subjective/Events-last exam BP is better. Off pressors since last night. Pt is lethargic and requires high O2. Plt further drop to 49 as well as Hb. Cr up from 0.7 to 1.3, GFR from 96 to 46. I initially made following recommendations 1. CT of chest/abd/pelvis WITHOUT contrast today looking for abscess. 2. Treatment for possible ITP with IVIG 40g x1 today. I will decide the steroid dose after I get the CT scan result. Now patient and family wanted to go for comfort care. Data Review Labs Laboratory Tests 12/11/21 05:05 12/11/21 14:00 Laboratory Tests 12/09/21 04:43: White Blood Count 24.0H, Red Blood Count 2.55L, Hemoglobin 7.0L, Hematocrit 22L, Red Cell Distribution Width 18.6H, Neutrophils (%) (Auto) 91H, Lymphocytes (%) (Auto) 6L, Neutrophils # (Auto) 21.8H, Immature Granulocyte # (Auto) 0.3H, Potassium Level 3.2L, Chloride Level 109H, Carbon Dioxide Level 12L, Anion Gap 18H, Blood Urea Nitrogen 6L, Glucose Level 108H, Calcium Level 7.6L, Total Protein 4.1L, Albumin 2.7L 12/09/21 08:08: 12/09/21 21:40: Hemoglobin 9.7#L, Hematocrit 29L 12/10/21 05:00: White Blood Count 17.0H, Red Blood Count 3.25L, Hemoglobin 9.1L, Hematocrit 27L, Red Cell Distribution Width 17.1H, Neutrophils (%) (Auto) 92H, Lymphocytes (%) (Auto) 4L, Neutrophils # (Auto) 15.7H, Immature Granulocyte # (Auto) 0.3H, Potassium Level 3.0L, Chloride Level 110H, Carbon Dioxide Level 12L, Anion Gap 19H, Calcium Level 7.4L, Total Protein 4.0L, Albumin 2.3L, Platelet Count 103L, Lymphocytes # (Auto) 0.7L, Phosphorus Level 2.0L 12/10/21 13:20: Total Cortisol 25.9H 12/11/21 05:05: White Blood Count 16.0H, Red Blood Count 3.03L, Hemoglobin 8.4L, Hematocrit 26L, Red Cell Distribution Width 18.0H, Platelet Count 47L, Neutrophils (%) (Auto) 94H, Lymphocytes (%) (Auto) 4L, Neutrophils # (Auto) 15.0H, Lymphocytes # (Auto) 0.6L, Immature Granulocyte # (Auto) 0.2H, Percent Immature Platelet Fraction 8.6H, Chloride Level 111H, Carbon Dioxide Level 11L, Anion Gap 21H, Glucose Level 122H, Calcium Level 7.5L, Total Bilirubin 2.0H, Aspartate Amino Transf (AST/SGOT) 65H, Total Protein 4.3L, Albumin 2.6L 12/11/21 07:15: Arterial Blood pH 7.27*L, Arterial Blood Partial Pressure CO2 29L, Arterial Blood Partial Pressure O2 62L, Arterial Blood HCO3 13*L, Arterial Blood Total CO2 13.5L, Arterial Blood Oxygen Saturation 92L, Arterial Blood Base Excess - 13.0L 12/11/21 12:31: 12/11/21 14:00: Sodium Level 146H, Chloride Level 112H, Carbon Dioxide Level 13L, Anion Gap 21H, Creatinine 1.56H, Glucose Level 111H, Calcium Level 7.4L Physical Exam Vital Signs Vital Signs - First Documented 12/05/21 12/06/21 00:00 16:54 Temp 36.4 Pulse 69 Resp 16 B/P (MAP) 100/63 Pulse Ox 97 O2 Delivery Room Air FiO2 3 Capillary Refill : Less Than 3 Seconds Height, Weight, BMI Height: '" Weight: lbs. oz. kg; 15.39 BMI Method: General Appearance: Other (Pt still need high O2 and very lethargic) Focused Exam Lactate Level 12/09/21 08:08: Lactic Acid Level 1.64 Impression & Plan Impression & Plan IMP: 1. 61 year old female in ICU with acute respiratory failure on Bi-Pap/high flow O2. Hypotensive requires pressor support. 2. Rectal mass, pathology showed moderate differentiated squamous cell carcinoma which is very unlikely to cause her acute respiratory failure. 3. Chronic anemia, most likely due to blood loss, s/p RBC transfusion with proper response, Hb from 7 to 9 range. 4. Rectal mass with perforation and abscess, s/p surgery 12/05/2021. 5. Leucocytosis, anemia and acutely dropping Plt. 6. Positive Covid test 09/2021 but no symptoms Rec: 1. This is a very complex case. I agree with the comfort care. Clinical Quality Measures DVT/VTE Risk/Contraindication: Contraindications-Pharm: Other *list below* Other: gi bleed YADIRA TATE MD Dec 11, 2021 10:04
[2021-12-11] MEDS ORDERED: NS IV 1000 ML 1,000 ML ONE (10:25)
--- NOTE | 2021-12-11 10:50 | Physical Therapy Progress Note ---
Therapy Progress Note Patient currently on Hold per RN due to decline in medical status. Will monitor patient status. RADHA RASCON PT Dec 11, 2021 10:50
[2021-12-11] MEDS ORDERED: IMMUNE GLOBULIN 10% IV SCH ×2 (11:00)
[2021-12-11] MEDS ORDERED: IVIG IV SCH ×2 (11:00)
--- NOTE | 2021-12-11 11:37 | Occ Therapy Progress Note ---
Therapy Progress Note OT orders received and chart was reviewed. Patient currently on Hold per RN due to decline in medical status. Will monitor patient status. Florence Griffin OT Dec 11, 2021 11:36
--- NOTE | 2021-12-11 13:20 | Progress Note ---
Progress Note Assessment/Plan Date Seen by Provider: Dec 11, 2021 Time Seen by Provider: 13:10 Events since last exam Consulted for placement of arterial line, due to continued vasopressor requirements and declining respiratory status/ arterial blood gas needs. RN reports family has just left bedside but will return this afternoon, to make decision regarding patient status and possibly comfort care measures only. ICU staff to update us as needed for this consult. 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 freundii complex Hypokalemia, resolved Patient's stoma appears to be healing appropriately, continue to monitor. Colostomy bag shows stool with small amounts of maroon blood, will continue to monitor. Patient is still requiring pressors to maintain blood pressure, managed by eICU team, continue to monitor. Hemoglobin is 8.4, from 9.1 yesterday, continue to monitor. 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 Patient currently on BiPAP 75%, had thoracentesis 12/07/21, continue to monitor. I am unsure why pt is having BP issues, I don't think it is Sepsis. I asked Cardiology about high ouput cardiac failure, they didn't think that was it. We are trying to rule out primary adrenal insufficiency. Patient's cortisol level was elevated on test. Patient did seem to respond positively to steroid dose yesterday though. May consider using scheduled steroid dosing and monitor clinical status and response. Pt is getting worse and I will need to talk to pt and son, because we have been unable to figure out what is going on with her. Vitals Last set of Vitals Signs Vital Signs Date Time Temp Pulse Resp B/P (MAP) Pulse Ox O2 Delivery O2 Flow Rate FiO2 12/11/21 12:28 NIV Bilevel 100.00 12/11/21 12:00 98 24 103/78 92 12/11/21 12:00 100 12/11/21 07:53 37.3 I&O I&O Intake and Output 12/11/21 00:00 Intake Total 700 ml Output Total 850 ml Balance -150 ml IV Total 700 ml Output Urine Total 850 ml Labs Laboratory Tests 12/10/21 13:20: Total Cortisol 25.9H 12/11/21 05:05: White Blood Count 16.0H, Red Blood Count 3.03L, Hemoglobin 8.4L, Hematocrit 26L, Mean Corpuscular Volume 85, Mean Corpuscular Hemoglobin 28, Mean Corpuscular Hemoglobin Concent 33, Red Cell Distribution Width 18.0H, Platelet Count 47L, Mean Platelet Volume , Immature Granulocyte % (Auto) 1, Neutrophils (%) (Auto) 94H, Lymphocytes (%) (Auto) 4L, Monocytes (%) (Auto) 2, Eosinophils (%) (Auto) 0, Basophils (%) (Auto) 0, Neutrophils # (Auto) 15.0H, Lymphocytes # (Auto) 0.6L , Monocytes # (Auto) 0.2, Eosinophils # (Auto) 0.0, Basophils # (Auto) 0.0, Immature Granulocyte # (Auto) 0.2H, Percent Immature Platelet Fraction 8.6H, Sodium Level 143, Potassium Level 4.2, Chloride Level 111H, Carbon Dioxide Level 11L, Anion Gap 21H, Blood Urea Nitrogen 13, Creatinine 1.30, Estimat Glomerular Filtration Rate 46, BUN/Creatinine Ratio 10, Glucose Level 122H, Calcium Level 7.5L, Corrected Calcium 8.6, Phosphorus Level 2.8, Magnesium Level 2.0, Total Bilirubin 2.0H, Aspartate Amino Transf (AST/SGOT) 65H, Alanine Aminotransferase (ALT/SGPT) 21, Alkaline Phosphatase 94, Total Protein 4.3L, Albumin 2.6L 12/11/21 07:15: Blood Gas Puncture Site R BRACH, Blood Gas Patient Temperature 36.9, Arterial Blood pH 7.27*L, Arterial Blood Partial Pressure CO2 29L, Arterial Blood Partial Pressure O2 62L, Arterial Blood HCO3 13*L, Arterial Blood Total CO2 13.5L, Arterial Blood Oxygen Saturation 92L, Arterial Blood Base Excess -13.0L, Brent Test YES-POS, Blood Gas Ventilator Setting NO, Blood Gas Inspired Oxygen 75% 12/11/21 12:31: Lab Scanned Report Transfusion Reaction Form Microbiology 12/08/21 MRSA Screen - Final, Complete MRSA not isolated 12/07/21 Gram Stain - Final, Complete 12/07/21 Body Fluid Culture - Final, Complete No growth 12/03/21 C. difficile GDH Antigen & Toxins - Final, Complete 12/01/21 Blood Culture - Final, Complete No growth 12/01/21 Urine Culture - Final, Complete Citrobacter freundii complex Enterococcus faecalis Focused Exam Lactate Level 12/09/21 08:08: Lactic Acid Level 1.64 Clinical Quality Measures DVT/VTE Risk/Contraindication: Contraindications-Pharm: Other *list below* Other: gi bleed KATHIE MONTANA CRNA Dec 11, 2021 13:20
[2021-12-11] MEDS ORDERED: ALBUMIN 25% 25 GM/100 ML 100 ML IV SCH (14:00)
[2021-12-11 14:12] LABS: POTASSIUM 4.2 MMOL/L (3.6-5.0)
[2021-12-11 14:13] LABS: CALCIUM 7.4 MG/DL (8.5-10.1)
[2021-12-11 14:18] LABS: CREATININE SERUM 1.56 MG/DL (0.60-1.30)
[2021-12-11 14:58] VITALS: BP 99/71
--- NOTE | 2021-12-11 15:34 | Progress Note ---
Subjective Subjective/Events-last exam Pt seen at 0910, met with family and saw patient again at 1140. At both times, she opens her eyes to her name but does not respond verbally or with head nodding or shaking to any questions. At the second visit, she is moving head side to side and moaning, appears uncomfortable, but does not answer when asked if she is in pain. Focused Exam Lactate Level 12/09/21 08:08: Lactic Acid Level 1.64 Objective Exam Last Set of Vital Signs Vital Signs Date Time Temp Pulse Resp B/P (MAP) Pulse Ox O2 Delivery O2 Flow Rate FiO2 12/11/21 14:58 102 19 96 100.00 12/11/21 13:45 98/77 12/11/21 12:28 NIV Bilevel 12/11/21 12:00 100 12/11/21 07:53 37.3 Capillary Refill : Less Than 3 Seconds I&O Intake and Output 12/11/21 00:00 Intake Total 700 ml Output Total 850 ml Balance -150 ml IV Total 700 ml Output Urine Total 850 ml General: Moderate Distress Lungs: Other (ronchi) Heart: Regular Rate Abdomen: Normal Bowel Sounds, Soft, Other (ostomy in place with serosanguinous fluid in bag) Extremities: Other (2+ pitting edema all extremities) Psych/Mental Status: Other (opens eyes but does not answer questions) Results/Procedures Lab Laboratory Tests 12/11/21 05:05: White Blood Count 16.0H, Red Blood Count 3.03L, Hemoglobin 8.4L, Hematocrit 26L, Mean Corpuscular Volume 85, Mean Corpuscular Hemoglobin 28, Mean Corpuscular Hemoglobin Concent 33, Red Cell Distribution Width 18.0H, Platelet Count 47L, Mean Platelet Volume , Immature Granulocyte % (Auto) 1, Neutrophils (%) (Auto) 94H, Lymphocytes (%) (Auto) 4L, Monocytes (%) (Auto) 2, Eosinophils (%) (Auto) 0, Basophils (%) (Auto) 0, Neutrophils # (Auto) 15.0H, Lymphocytes # (Auto) 0.6L , Monocytes # (Auto) 0.2, Eosinophils # (Auto) 0.0, Basophils # (Auto) 0.0, Immature Granulocyte # (Auto) 0.2H, Percent Immature Platelet Fraction 8.6H, Sodium Level 143, Potassium Level 4.2, Chloride Level 111H, Carbon Dioxide Level 11L, Anion Gap 21H, Blood Urea Nitrogen 13, Creatinine 1.30, Estimat Glomerular Filtration Rate 46, BUN/Creatinine Ratio 10, Glucose Level 122H, Calcium Level 7.5L, Corrected Calcium 8.6, Phosphorus Level 2.8, Magnesium Level 2.0, Total Bilirubin 2.0H, Aspartate Amino Transf (AST/SGOT) 65H, Alanine Aminotransferase (ALT/SGPT) 21, Alkaline Phosphatase 94, Total Protein 4.3L, Albumin 2.6L 12/11/21 07:15: Blood Gas Puncture Site R BRACH, Blood Gas Patient Temperature 36.9, Arterial Blood pH 7.27*L, Arterial Blood Partial Pressure CO2 29L, Arterial Blood Partial Pressure O2 62L, Arterial Blood HCO3 13*L, Arterial Blood Total CO2 13.5L, Arterial Blood Oxygen Saturation 92L, Arterial Blood Base Excess -13.0L, Brent Test YES-POS, Blood Gas Ventilator Setting NO, Blood Gas Inspired Oxygen 75% 12/11/21 12:31: Lab Scanned Report Transfusion Reaction Form 12/11/21 14:00: Sodium Level 146H, Potassium Level 4.2, Chloride Level 112H, Carbon Dioxide Level 13L, Anion Gap 21H, Blood Urea Nitrogen 15, Creatinine 1.56H, Estimat Glomerular Filtration Rate 37, BUN/Creatinine Ratio 10, Glucose Level 111H, Calcium Level 7.4L Microbiology 12/08/21 MRSA Screen - Final, Complete MRSA not isolated 12/07/21 Gram Stain - Final, Complete 12/07/21 Body Fluid Culture - Final, Complete No growth 12/03/21 C. difficile GDH Antigen & Toxins - Final, Complete 12/01/21 Blood Culture - Final, Complete No growth 12/01/21 Urine Culture - Final, Complete Citrobacter freundii complex Enterococcus faecalis Radiology Date of Exam:12/01/21 CT ABDOMEN/PELVIS W PROCEDURE: CT abdomen and pelvis with contrast. TECHNIQUE: Multiple contiguous axial images were obtained through the abdomen and pelvis after administration of intravenous contrast. Auto Exposure Controls were utilized during the CT exam to meet ALARA standards for radiation dose reduction. All CT scans use one or more of the following dose optimizing techniques: automated exposure control, MA and/or KvP adjustment based on patient size and exam type or iterative reconstruction. INDICATION: Abscess, pain. COMPARISON: October 13, 2021. FINDINGS: Calcified granuloma within the right middle lobe. The lungs are otherwise clear. Large hiatal hernia. Hypodensity within the liver adjacent to the falciform ligament and gallbladder fossa is again identified. The liver is otherwise unremarkable. The spleen is unremarkable. The adrenal glands are unremarkable. The pancreas is unremarkable. The gallbladder is at the upper limits of normal in size without adjacent inflammatory stranding. Advanced vascular calcifications within the abdominal aorta and its branch vessels without aneurysmal dilatation of the abdominal aorta. Retroaortic left renal vein. Rodriguez catheter is present within the urinary bladder, though significant amount of gas and fluid remains within the urinary bladder. 2.8 x 2.0 cm irregular gas and fluid collection is identified within the perineum just to the left of midline with associated hyperenhancement. This is seen extending along the left aspect of the rectum. This appears relatively similar to the prior examination. Diffuse mural thickening of loops of the large and small bowel is identified, which appears to be a change from the prior examination. No evidence of bowel obstruction. No abnormal adnexal mass lesion. No new adenopathy. No significant free fluid or free air. New postsurgical changes are identified associated with the proximal right femur. No new acute osseous abnormality. IMPRESSION: Persistent perineal/left perirectal gas and fluid collection remains concerning for a perirectal/perineal abscess. Overall appearance is relatively similar to the prior examination. Neoplasm at this location not excluded. New mural thickening involving the large and small bowel, felt to relate to underlying enterocolitis. There is however no evidence of bowel obstruction. Gas and fluid within the urinary bladder though a Rodriguez catheter is present within the urinary bladder. Recommend clinical correlation for functionality of this Rodriguez catheter. Large hiatal hernia. Fatty infiltration of the liver. Additional findings as above, including interval postsurgical changes involving the proximal right femur. Dictated by: Dictated on workstation # [id number] Dict: 12/01/218 Trans: 12/01/211758 [id number] [id number] Interpreted by: YARIEL CATALAN MD Electronically signed by: YARIEL CATALAN MD 12/01/211758 Assessment/Plan Assessment/Plan (1) Anemia Status: Chronic Assessment & Plan: Suspect combination of iron deficiency and chronic disease, had low iron. B12 was low normal at 192 in Feb, is on B12 at home, but anemia is normocytic. Known rectal bleeding, s/p upper and lower endoscopy, appreciate [facility] recommendations. 12/09- Hgb down to 7, transfusion per ICU. (2) Hypokalemia Status: Acute Assessment & Plan: Replace and monitor. (3) Urinary tract infection Status: Acute Assessment & Plan: Citrobacter freundii and enterococcus faecalis on culture, both sensitive to levofloxacin, continuing levofloxacin course beyond 5 days due to persistent hypotension and worsening leukocytosis. Qualifiers: Qualified Codes: N39.0 - Urinary tract infection, site not specified (4) Failure to thrive in adult Status: Chronic (5) Acute respiratory failure Status: Acute Assessment & Plan: 12/08- CTA chest 12/06/21 with bilateral pleural effusions and changes suspected to be related to history of COVID19 infection in September, s/p thoracentesis. Requiring up to 10 lpm high flow nasal cannula this am, appreciate [facility] ICU recommendations. Nursing reports unable to obtain adequate SpO2 measurements in spite of trials of forehead, ear, multiple fingers. ABG this morning suspected to be VBG. Consider arterial line. 12/09- Continues to worsen, requiring bipap, and unable to tolerate vapotherm even for eating or brief periods. Lasix given this morning per ICU. Repeat CXR. 12/10- repeat CXR yesterday with slight improvement, still requiring CPAP however. Appreciate [facility] ICU assistance. 12/11- unfortunately continues to worsen in spite of all the treatments, is now on bipap at 75% FiO2 Qualifiers: Qualified Codes: J96.01 - Acute respiratory failure with hypoxia (6) Pleural effusion Status: Acute Assessment & Plan: s/p left thoracentesis on 12/07. Ratio of pleural fluid protein to serum protein 0.8/3.7 = 0.22, suggesting transudate; LDH levels not done, uncertain etiology consider hypoalbuminemia, COVID19 history, malignancy. Heart failure less like given echo on 12/05 with EF 60-65%, although did have elevated pulmonary artery pressure. Nucleated cell count less than 10,000/micoL making infection less likely cause. (7) Hypotension Status: Acute Assessment & Plan: Uncertain etiology- had bleeding on admit, but is not have active brisk bleeding that would explain severity of her hypotension, did not meet sepsis criteria on admit and LA normalized early on. am Cortisol 9.4 mcg/dL, not clearly consistent with adrenal insufficiency. Adrenals normal appearing on CT. Had tachycardia with norepinephrine, now on phenylephrine and vaspressin. 12/11- continues to struggle, repeat cortisol above 20, still requiring phenylephine and vasporessin, starting to show signs of digital ischemia (8) Mass of perirectal soft tissue Status: Acute Assessment & Plan: s/p diverting ostomy per Dr. Donnelly. Pathology with squamous cell carcinoma. (9) High anion gap metabolic acidosis Status: Acute Assessment & Plan: Uncertain cause, lactic acid normal. Started on bicarb per ICU. 12/11 continues to worsen, bicarb bolus and dip per [facility] ICU. (10) COVID-19 Status: Acute Assessment & Plan: History of symptomatic positive 10/13/21 when she was admitted with fracture. Asymptomatic initially on this admit, suspect prolonged positive rather than active infection. (11) Squamous cell carcinoma of rectum Status: Acute Assessment & Plan: Oncology consulted. (12) Renal failure Status: Acute Assessment & Plan: Suspect secondary to hypotension. Creatinine up to 1.3, urine output persistently decreasing in spite of boluses. Receiving another bolus and albumin today per ICU. Qualifiers: Qualified Codes: N17.9 - Acute kidney failure, unspecified (13) Elevated liver enzymes Status: Acute Assessment & Plan: New on 12/11, concerning for hypotensive injury. (14) Leukocytosis Status: Acute Assessment & Plan: UTI noted above, discussed with Gen Surg and they do not suspect intraabdominal abscess. Antibiotic broadened today per ICU given her persistent worsening overall clinical status. (15) Thrombocytopenia Status: Acute Assessment & Plan: Suspect due to multi-organ failure, Heme Onc already following due to squamous cell carcinoma diagnosis, appreciate recommendations. (16) DVT prophylaxis Status: Acute Assessment & Plan: No pharmacologic due to GI bleeding and severe anemia and now thrombocytopenia. (17) Goals of care, counseling/discussion Status: Acute Assessment & Plan: 12/09 Discussed current serious situation with patient again today and in light of new biopsy information, she reaffirms full code status at this time 12/11 Unfortunately she is no longer able to express her desires or answer questions meaningfully, her son arrived yesterday. Met with him and his at bedside and discussed severity of current illness and that while Sriram did not initially indicate wanting to change to DNR, she did indicate that she would not want care that would not improve her quality of life. She is currently in apparent distress in spite of morphine use and her son is appropriately concerned that if a code event occurred, she would not want an attempt at resuscitation if it would not be likely to improve her condition, which I agree at this time it would not. He asked if she is known to have a living will, which she is not, but will have social work try to connect with any outpatient behavioral health, etc to see if any further information is available. Family feels she would desire to change her code status to DNR/DNI given her current condition, but are not yet sure if they believe she would want to continue current aggressive care. Given this, we will continue to treat as above at this time. Clinical Quality Measures DVT/VTE Risk/Contraindication: Contraindications-Pharm: Other *list below* Other: gi bleed JOSE SANDERS MD Dec 11, 2021 15:34
[2021-12-11] MEDS ORDERED: ARTIFICAL TEARS 0.4 ML UNIT DOSE (REFRESH PLUS) OU PRN (16:45)
[2021-12-11] MEDS ORDERED: BISACODYL 10 MG SUPP (DULCOLAX) PR PRN (16:45)
[2021-12-11] MEDS ORDERED: GLYCOPYRROLATE 0.2 MG/ML (ROBINUL) 2 ML VIAL IV PRN (16:45)
[2021-12-11] MEDS ORDERED: ACETAMINOPHEN 650 MG SUPP (TYLENOL) PR PRN (16:45)
[2021-12-11] MEDS ORDERED: SALIVA STIMULANT MOUTH SPRAY (BIOTENE) 1.5 OZ MM PRN (16:45)
[2021-12-11] MEDS ORDERED: PROMETHAZINE INJ 25 MG/ML (PHENERGAN) AMP IVP PRN (16:45)
[2021-12-11] MEDS ORDERED: LORazepam INJ 2 MG/ML (ATIVAN) VIAL IVP PRN (16:45)
--- NOTE | 2021-12-11 19:01 | Discharge Summary ---
Discharge Summary Date of Admission Dec 01, 2021 at 17:49 Date of Discharge Discharge Date: Dec 11, 2021 Admission Diagnosis Rectal mass question perirectal asbscess Sepsis Baseline hypotension Anemia iron deficiency Poor living conditions Smoker History of alcoholism Thin body habitus BMI 16 Consults/Procedures Consulations General Surgery Cardiology Oncology Metallurgy Laboratory Technician Comfort Measures/ End of Life Care: Comfort Measures Date of : Dec 11, 2021 Time of : 17:44 Discharge Diagnosis (1) Anemia Status: Chronic Assessment & Plan: Suspect combination of iron deficiency and chronic disease, had low iron. B12 was low normal at 192 in Feb, is on B12 at home, but anemia is normocytic. Known rectal bleeding, s/p upper and lower endoscopy, appreciate Surgery recommendations. Received transfusions during admission (2) Hypokalemia Status: Acute Assessment & Plan: Replace and monitor. (3) Urinary tract infection Status: Acute Assessment & Plan: Citrobacter freundii and enterococcus faecalis on culture, both sensitive to levofloxacin, continuing levofloxacin course beyond 5 days due to persistent hypotension and worsening leukocytosis. Qualifiers: Qualified Codes: N39.0 - Urinary tract infection, site not specified (4) Failure to thrive in adult Status: Chronic (5) Acute respiratory failure Status: Acute Assessment & Plan: 12/08- CTA chest 12/06/21 with bilateral pleural effusions and changes suspected to be related to history of COVID19 infection in September, s/p thoracentesis. Requiring up to 10 lpm high flow nasal cannula this am, appreciate [facility] ICU recommendations. Nursing reports unable to obtain adequate SpO2 measurements in spite of trials of forehead, ear, multiple fingers. ABG this morning suspected to be VBG. Consider arterial line. 12/09- Continues to worsen, requiring bipap, and unable to tolerate vapotherm even for eating or brief periods. Lasix given this morning per ICU. Repeat CXR. 12/10- repeat CXR yesterday with slight improvement, still requiring CPAP however. Appreciate [facility] ICU assistance. 12/11- unfortunately continued to worsen, was requiring Bipap at 100% FiO2 by noon on day of . Qualifiers: Qualified Codes: J96.01 - Acute respiratory failure with hypoxia (6) Pleural effusion Status: Acute Assessment & Plan: s/p left thoracentesis on 12/07. Ratio of pleural fluid protein to serum protein 0.8/3.7 = 0.22, suggesting transudate; LDH levels not done, uncertain etiology consider hypoalbuminemia, COVID19 history, malignancy. Heart failure less like given echo on 12/05 with EF 60-65%, although did have elevated pulmonary artery pressure. Nucleated cell count less than 10,000/micoL making infection less likely cause. (7) Hypotension Status: Acute Assessment & Plan: Uncertain etiology- had bleeding on admit, but is not have active brisk bleeding that would explain severity of her hypotension, did not meet sepsis criteria on admit and LA normalized early on. am Cortisol 9.4 mcg/dL, not clearly consistent with adrenal insufficiency. Adrenals normal appearing on CT. Had tachycardia with norepinephrine, now on phenylephrine and vaspressin. 12/11- continues to struggle, repeat cortisol above 20, still requiring phenylephine and vasporessin, starting to show signs of digital ischemia (8) Mass of perirectal soft tissue Status: Acute Assessment & Plan: s/p diverting ostomy per Dr. Donnelly. Pathology with squamous cell carcinoma. (9) High anion gap metabolic acidosis Status: Acute Assessment & Plan: Uncertain cause, lactic acid normal. Started on bicarb per ICU. 12/11 continues to worsen, bicarb bolus and drip per [facility] ICU. (10) COVID-19 Status: Acute Assessment & Plan: History of symptomatic positive 10/13/21 when she was admitted with fracture. Asymptomatic initially on this admit, suspect prolonged positive rather than active infection. (11) Squamous cell carcinoma of rectum Status: Acute Assessment & Plan: Oncology consulted. (12) Renal failure Status: Acute Assessment & Plan: Suspect secondary to hypotension. Creatinine up to 1.3 on 12/11 am, urine output persistently decreasing in spite of boluses. Given further bolus and albumin on 12/11. Qualifiers: Qualified Codes: N17.9 - Acute kidney failure, unspecified (13) Elevated liver enzymes Status: Acute Assessment & Plan: New on 12/11, concerning for hypotensive injury. (14) Leukocytosis Status: Acute Assessment & Plan: UTI noted above, discussed with Gen Surg and they do not suspect intraabdominal abscess. Antibiotic broadened 12/11 per ICU given her pe rsistent worsening overall clinical status. (15) Thrombocytopenia Status: Acute Assessment & Plan: Suspect due to multi-organ failure, Heme Onc already following due to squamous cell carcinoma diagnosis, planned IVIG but goals of care were changed prior to administration. (16) Goals of care, counseling/discussion Status: Acute Assessment & Plan: 12/09 Discussed current serious situation with patient again today and in light of new biopsy information, she reaffirms full code status at this time 12/11 Unfortunately she is no longer able to express her desires or answer questions meaningfully, her son arrived yesterday. Met with him and his at bedside and discussed severity of current illness and that while Sriram did not initially indicate wanting to change to DNR, she did indicate that she would not want care that would not improve her quality of life. She is currently in appare nt distress in spite of morphine use and her son is appropriately concerned that if a code event occurred, she would not want an attempt at resuscitation if it would not be likely to improve her condition, which I agree at this time it would not. He asked if she is known to have a living will, which she is not, but will have social work try to connect with any outpatient behavioral health, etc to see if any further information is available. Family feels she would desire to change her code status to DNR/DNI given her current condition, and with her continued deterioration throughout the day- worsening creatinine, worsening ischemia in extremities and frequent ventricular ectopy, they decided she would want comfort measures, which were initiated and she shortly after. JOSE SANDERS MD Dec 11, 2021 19:01
[2021-12-12] MEDS ORDERED: SODIUM BICARB 8.4% 50 MEQ/50 ML VIAL IV ONE (08:30)
== END 2021-12-11 19:14 | disposition expired | DRG 853 ==
LOC: EDUNIT# 15:11 → ER 15:14 → 4TH 17:49 → ICU 12-03 06:12
PROVIDERS: ADMIT Internal Medicine; ATTEND Family Medicine
PROC: 0DB38ZX Excision of Lower Esophagus, Via Natural or Artificial Opening Endoscopic, Diagnostic (ICD-10-PCS; 2021-12-03)
PROC: 0DB78ZX Excision of Stomach, Pylorus, Via Natural or Artificial Opening Endoscopic, Diagnostic (ICD-10-PCS; 2021-12-03)
PROC: 0DBP8ZX Excision of Rectum, Via Natural or Artificial Opening Endoscopic, Diagnostic (ICD-10-PCS; 2021-12-03)
PROC: 0DBH8ZX Excision of Cecum, Via Natural or Artificial Opening Endoscopic, Diagnostic (ICD-10-PCS; 2021-12-03)
PROC: 0DBE8ZX Excision of Large Intestine, Via Natural or Artificial Opening Endoscopic, Diagnostic (ICD-10-PCS; 2021-12-03)
PROC: 0DBN4ZZ Excision of Sigmoid Colon, Percutaneous Endoscopic Approach (ICD-10-PCS; 2021-12-05)
PROC: 0D1N4Z4 Bypass Sigmoid Colon to Cutaneous, Percutaneous Endoscopic Approach (ICD-10-PCS; 2021-12-05)
PROC: 0DBP4ZZ Excision of Rectum, Percutaneous Endoscopic Approach (ICD-10-PCS; principal; 2021-12-05 13:05)
PROC: 5A0935A Assistance with Respiratory Ventilation, Less than 24 Consecutive Hours, High Flow/Velocity Cannula (ICD-10-PCS; 2021-12-06)
PROC: 0W9B3ZZ Drainage of Left Pleural Cavity, Percutaneous Approach (ICD-10-PCS; 2021-12-08)
PROC: 5A09457 Assistance with Respiratory Ventilation, 24-96 Consecutive Hours, Continuous Positive Airway Pressure (ICD-10-PCS; 2021-12-08)
DX: A41.9 Sepsis, unspecified organism (principal); U07.1 COVID-19; R65.21 Severe sepsis with septic shock; J96.01 Acute respiratory failure with hypoxia; J18.9 Pneumonia, unspecified organism; L02.215 Cutaneous abscess of perineum; N39.0 Urinary tract infection, site not specified; E87.1 Hypo-osmolality and hyponatremia; Z68.1 Body mass index [BMI] 19.9 or less, adult; R64 Cachexia; J91.8 Pleural effusion in other conditions classified elsewhere; E87.2 Acidosis; Z66 Do not resuscitate; Z51.5 Encounter for palliative care; K62.9 Disease of anus and rectum, unspecified; E87.6 Hypokalemia; L89.301 Pressure ulcer of unspecified buttock, stage 1; R62.7 Adult failure to thrive; F17.210 Nicotine dependence, cigarettes, uncomplicated; J44.9 Chronic obstructive pulmonary disease, unspecified; K21.9 Gastro-esophageal reflux disease without esophagitis; F41.9 Anxiety disorder, unspecified; F32.A Depression, unspecified; D50.9 Iron deficiency anemia, unspecified; R57.1 Hypovolemic shock; B96.89 Other specified bacterial agents as the cause of diseases classified elsewhere; E88.09 Other disorders of plasma-protein metabolism, not elsewhere classified; R60.0 Localized edema; D69.6 Thrombocytopenia, unspecified; K22.2 Esophageal obstruction; K52.9 Noninfective gastroenteritis and colitis, unspecified; I27.20 Pulmonary hypertension, unspecified; I95.9 Hypotension, unspecified; K57.90 Diverticulosis of intestine, part unspecified, without perforation or abscess without bleeding; K29.70 Gastritis, unspecified, without bleeding; K44.9 Diaphragmatic hernia without obstruction or gangrene; R16.0 Hepatomegaly, not elsewhere classified; H54.7 Unspecified visual loss; Z22.322 Carrier or suspected carrier of Methicillin resistant Staphylococcus aureus
CPT/HCPCS: 36410; 36415; 51702; 71045; 71275; 74177; 76937; 80048; 80053; 81000; 82533; 82607; 82805; 82945; 83540; 83605; 83735; 84100; 84132; 84145; 84157; 84443; 84484; 85007; 85014; 85018; 85025; 85027; 85610; 85730; 86850; 86900; 86901; 86920; 87040; 87070; 87077; 87081; 87088; 87186; 87205; 87324; 87449; 87636; 88305; 89051; 93005; 93306; 94640; 94660; 94664; 94760; 96374; 96375